=== PATIENT | female | born 2000 | race Caucasian/White ===

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

== ENCOUNTER 2023-02-04 04:45 | Outpatient (CLI) | payer MEDICAID, SELFPAY ==
[2023-02-04 05:13] VITALS: BP 126/73; PULSE 75; TEMP 36.6; O2SAT 99
[2023-02-04 05:38] VITALS: BMI 27.7
[2023-02-04 05:51] LABS: Color, Urine Yellow (Yellow); Glucose, Dipstick Normal (Normal); Ketone-Dipstick Negative (Negative); Leukocyte Esterase-Dipstick Negative /ul (Negative); Nitrite-Dipstick Negative (Negative); Occult Blood-Urine Negative /ul (Negative); Protein-Dipstick Negative (Negative); Urine Bilirubin Dipstick Negative (Negative); Urine Clarity Sl. Cloudy (Clear); Urine Urobilinogen Normal (Normal)
[2023-02-04] MEDS: cycloBENZAPRine HCl 10 MG Tablet PO (07:02)
--- NOTE | 2023-02-05 03:58 | OB.TRI.HP_ITS ---
HPI - General General Date of Admission: 02/04/23 Date of Service: 02/04/23 HPI Narrative NESTOR JOHNSON, is a 22 F who presents at 28w5d with JAX: 04/24/23 for abdominal pain. [facility] Medical History (Updated 02/05/23 @ 04:03 by Terra Herrera CNM) Lab test negative for COVID-19 virus Pilonidal cyst with abscess URI (upper respiratory infection) Home Medications escitalopram oxalate 5 mg tablet (Lexapro) 5 mg PO DAILY 01/07/21 [History Last Taken Unknown] trazodone 50 mg tablet 50 mg PO DAILY 01/07/21 [History Last Taken Unknown] pwyumfts-khw-Ox-FA 1 mg tablet tab PO 02/04/23 [History Last Taken Unknown] ylcidlzm-rcm-Nv-FA 1 mg tablet tab PO 02/04/23 [History Last Taken 02/04/23] Allergy/AdvReac Type Severity Reaction Status Date / Time Seasonal Allergies: Uncoded Allergy Unknown NEEDS Verified 02/04/23 05:08 FOLLOW-UP Social History Smoking Status: Never smoker NST FHR Rate Baby A Baseline: 150 Variability:: Moderate Accelerations:: 15 x 15 Decelerations:: None NST Reactive:: Yes Uterine Activity:: None Assessment & Plan (1) Abdominal pain affecting : (2) 28 weeks gestation of : PLAN: Plan 1) No signs of labor, labor precautions reviewed 2) D/C home
== END 2023-02-04 07:03 | disposition home or self-care (01) ==
LOC: WPOUT 04:51 → WP 04:58
PROVIDERS: PCP Pediatrics; Referring Provider Advanced Practice Midwife; Visit Provider Advanced Practice Midwife
DX: O99.891 Other specified diseases and conditions complicating pregnancy (principal); R10.9 Unspecified abdominal pain; Z3A.28 28 weeks gestation of pregnancy
CPT/HCPCS: 81002; 87086; 87088

== ENCOUNTER 2023-02-06 19:15 | Outpatient (CLI) | payer OTHER, MEDICAID, SELFPAY ==
[2023-02-06] VITALS (7 sets, daily range): BP systolic 130–142; BP diastolic 82–95; PULSE 71–119; TEMP 37.2–37.4; O2SAT 98; BMI 27.1
--- NOTE | 2023-02-06 20:09 | OB.TRI.HP_ITS ---
HPI - General General Date of Service: 02/06/23 Chief Complaint: abdominal pain HPI Narrative NESTOR JOHNSON, is a 22 F who presents with lower abdominal pain. Has been evaluated in the office twice for lower abdominal pain. She states she has had this pain for about 1 week. It is a constant sharp pain across entire lower abdomen and it wraps around into her back and up into her rib cage. The pain does not come and go. Nothing makes the pain better or worse. She has had nausea in the , but some vomiting today. She has had 3 episodes of emesis and states she cannot tolerate PO. Oral temp of 100.4 at home. No sick contacts or new foods. She denies constipation, diarrhea, dysuria, LOF, VB. Good FM. No CADENA or vision changes. [facility] Medical History (Updated 02/06/23 @ 21:[address] Mary Arredondo, DO) Lab test negative for COVID-19 virus Pilonidal cyst with abscess URI (upper respiratory infection) Home Medications escitalopram oxalate 5 mg tablet (Lexapro) 5 mg PO DAILY 01/07/21 [History Last Taken Unknown] trazodone 50 mg tablet 50 mg PO DAILY 01/07/21 [History Last Taken Unknown] lbzbvuof-nnw-Ms-FA 1 mg tablet tab PO 02/04/23 [History Last Taken Unknown] ogmotqyx-gxl-Je-FA 1 mg tablet tab PO 02/04/23 [History Last Taken 02/04/23] Allergy/AdvReac Type Severity Reaction Status Date / Time Seasonal Allergies: Uncoded Allergy Unknown NEEDS Verified 02/06/23 20:27 FOLLOW-UP Social History Smoking Status: Never smoker Physical Exam Const alert and no apparent distress General Appearance: comfortable HEENT normocephalic GI soft to palpation, non-tender and non-distended GI Narrative: Non acute, no rebounding, no guarding, no rigidity NST FHR Rate Baby A Baseline: 150 Variability:: Moderate Accelerations:: None Decelerations:: None NST Reactive:: Appropriate for gestational age Assessment & Plan (1) 29 weeks gestation of : PLAN: Bedside TAUS- vertex presentation, normal MVP, normal appearing placenta. Labs drawn given abd pain, temp 99, nausea and vomiting. Concern for HELLP, acute fatty liver, or TTP based on lab results. Start mag gtt and BMZ x 1 given. Discussed patient and plan of care with MFM at [facility] who accepts transfer. Will send by life flight given acuity. (2) Abdominal pain affecting :
[2023-02-06] MEDS: Lactated Ringers 1,000 ML 999 ML IV (20:15)
[2023-02-06] MEDS: Ondansetron 4 MG/2 ML Vial IV (20:22)
[2023-02-06 20:25] LABS: Absolute Lymphocyte Count 1.42 X10^3/uL (0.83-4.51); Absolute Neutrophil Count 8.6 X10^3/uL (2.0-7.7); Basophil# 0.03 X10^3/uL; Basophil% 0.3 % (0-1); Eosinophils% 1.8 % (0-5); Hematocrit 33.2 % (37-47); Lymphocyte # 1.42 X10^3/ul (0.83-4.51); Lymphocyte % 12.8 % (19-41); Mean Corp Hgb Conc 33.1 g/dL (32-36); Mean Corpuscular Hgb 27.5 pg (27.0-32.0); Mean Platelet Vol. 11.8 fl (6.2-12.0); Monocyte# 0.69 X10^3/uL; Monocyte% 6.2 % (0-10); NRBC Flagged by Analyzer 0 % (0-5); Neutrophil # 8.61 X10^3/uL (2.7-7.7); Neutrophil % 77.9 % (47-70); POSITIVE COUNT YES; RBC Distribution Width SD 40.9 fl (35.1-43.9); White Blood Count 11.1 K/mm3 (4.4-11.0)
[2023-02-06 20:30] LABS: Differential Indicated SCAN CRITERIA MET; Platelet Count 38 K/mm3 (150-450)
[2023-02-06 20:57] LABS: Differential Comment SCANNED
[2023-02-06 21:24] LABS: ALB/GLOB Ratio 0.7 RATIO (0.9-2.4); AST(SGOT) 224 U/L (15-37); Alanine Aminotransfer ALT/SGPT 233 U/L (13-56); Albumin, Serum 2.4 g/dL (3.2-5.0); Alkaline Phosphatase 81 U/L (45-117); Amylase 35 U/L (25-115); Anion Gap 7 (5-15); BUN 10 mg/dL (7-18); BUN/Creat Ratio 17.2 RATIO (10-20); Calcium,Total 8.6 mg/dL (8.5-10.1); Chloride 107 mmol/L (98-107); Creatinine, Serum 0.58 mg/dL (0.55-1.02); EST Glomerular Filtration Rate 138 mL/min (>60); Est Glom Filt Rate - Afr Amer 167 mL/min (>60); Estimated Creatinine Clearance 143.63 ml/min; Globulin 3.6 g/dL (2.2-4.2); Glucose 71 mg/dL (74-106); Lipase 19 U/L (13-75); Potassium 3.4 mmol/L (3.5-5.1); Sodium Level 137 mmol/L (136-145)
[2023-02-06 21:25] LABS: Protein, Urine (Random) 71.3 mg/dL (<11.9); Protein:Creat Ratio 310 mg/g CRE (0-200)
[2023-02-06] MEDS: Magnesium Sulfate 4gm/100mL 4 GM/100 ML IV.SOLN. IV (21:30)
--- NOTE | 2023-02-06 21:30 | NURSING ---
Dr. Arredondo gave verbal order to give 4gm mag bolus over 30 minutes.
[2023-02-06 21:40] LABS: International Normalized Ratio 1.2; Partial Thromboplast Time 40.3 Seconds (24.1-36.2)
[2023-02-06] MEDS: Betamethasone/Betamethasone 30 MG/5 ML Vial 12 MG IM (21:42)
[2023-02-06 21:45] LABS: Fibrinogen 395 mg/dl (203-444)
[2023-02-06] MEDS: Magnesium Sulfate 20 GM/500 ML BAG IV (21:56)
[2023-02-10 09:52] LABS: Pathologist Review Reviewed
[2023-02-10 09:52] LABS: Platelet Count 36 K/mm3 (150-450)
== END 2023-02-06 22:22 | disposition short-term general hospital (02) ==
LOC: WPOUT 19:38 → WP 19:38
PROVIDERS: PCP Pediatrics; Visit Provider Obstetrics & Gynecology
DX: O99.891 Other specified diseases and conditions complicating pregnancy (principal); R10.32 Left lower quadrant pain; R10.31 Right lower quadrant pain; Z3A.29 29 weeks gestation of pregnancy
CPT/HCPCS: 96365; 96375; 96361; 36415; 59025; 59050; 76815; 80053; 82150; 82570; 83690; 84156; 85025; 85049; 85384; 85610; 85730; 86850; 86900; 86901; 96372; 99221; J7120; G0378; J0702; J2405

== ENCOUNTER → 2024-11-15 | Outpatient (CLI) | payer OTHER, MEDICAID, SELFPAY ==
[2024-11-15 12:42] LABS: Absolute Lymphocyte Count 2.24 X10^3/uL (0.83-4.51); Absolute Neutrophil Count 3.8 X10^3/uL (2.0-7.7); Basophil# 0.06 X10^3/uL; Basophil% 0.9 % (0-1); Eosinophil# 0.05 X10^3/uL; Eosinophils% 0.7 % (0-5); Hematocrit 42.8 % (37-47); Hemoglobin 13.7 g/dL (12.0-15.0); Lymphocyte # 2.24 X10^3/ul (0.83-4.51); Lymphocyte % 33.4 % (19-41); Mean Corpuscular Hgb 26.7 pg (27.0-32.0); Mean Corpuscular Volume 83.3 fL (81-99); Mean Platelet Vol. 10.7 fl (6.2-12.0); Monocyte# 0.56 X10^3/uL; Monocyte% 8.4 % (0-10); NRBC Flagged by Analyzer 0 % (0-5); Neutrophil # 3.77 X10^3/uL (2.7-7.7); Neutrophil % 56.3 % (47-70); Platelet Count 263 K/mm3 (150-450); RBC Distribution Width CV 12.5 % (11.6-14.6); RBC Distribution Width SD 37.6 fl (35.1-43.9); Red Blood Count 5.14 M/mm3 (4.2-5.4); White Blood Count 6.7 K/mm3 (4.4-11.0)
[2024-11-15 13:39] LABS: ALB/GLOB Ratio 1.8 RATIO (0.9-2.4); AST(SGOT) 18 U/L (<=31); Alanine Aminotransfer ALT/SGPT 11 U/L (<=34); Albumin, Serum 4.6 g/dL (3.5-5.0); Alkaline Phosphatase 38 U/L (35-104); Anion Gap 11 (5-15); BUN 9 mg/dL (4-19); BUN/Creat Ratio 12.4 RATIO (10-20); Calcium,Total 9.4 mg/dL (7.6-11.0); Carbon Dioxide 25.5 mmol/L (21.0-32.0); Chloride 103 mmol/L (98-108); Creatinine, Serum 0.74 mg/dL (0.70-1.20); EST Glomerular Filtration Rate 116 (>60); Globulin 2.6 g/dL (2.2-4.2); Glucose 82 mg/dL (70-99); Protein, Total 7.2 g/dL (5.9-8.4); Sodium Level 140 mmol/L (133-145); Total Bilirubin 0.77 mg/dL (0.00-1.30)
[2024-11-15 13:42] LABS: Vitamin B12 471 pg/mL (180-914)
== END | disposition home or self-care (01) ==
LOC: BIMLAB 10:21
PROVIDERS: PCP Internal Medicine; Referring Provider Internal Medicine; Visit Provider Internal Medicine
DX: F41.1 Generalized anxiety disorder (principal)
CPT/HCPCS: 36415; 80053; 82306; 82607; 84439; 84443; 85025

== ENCOUNTER → 2025-05-01 | Outpatient (CLI) | payer OTHER, MEDICAID, SELFPAY ==
[2025-05-01 22:41] LABS: Mucous, Urine 0 SEEN /hpf (<or=2+)
--- OUTSIDE RECORDS SUMMARY | 2025-05-01 22:42 | XMS RPT_ITS | CCD ---
Author Organization [facility] [place] [facility] Care Team Providers Care Senior Officer Name Role Phone Unavailable Primary Care Provider Temi Byrne MD Primary Care Provider PROVIDER, UNKNOWN Attending Unavailable PROVIDER, UNKNOWN Admitting Unavailable MILES, ARELI Attending Unavailable DOLIN, JEAN Admitting Unavailable DOLIN, JEAN Consulting Unavailable Unavailable Primary Care Provider Unavailanalilia e Unavailable Primary Care Provider UnavailDr. Betsy Monroy DO Primary Care Provider Dr. Betsy Coleman DO Referring Provider Kevin BRIGGS, Dr. Reid Attending Provider Dr. Franklin Brown MD Primary Care Provider Dr. Franklin Brown MD Referring Provider Kevin Efewongbe Attending Unavailable Betsy Coleman Primary Care Unavailable Betsy Coleman Referring Unavailable Oleghe, Efewongbe Attending Unavailable Hughghe, Efewongbe Referring Unavailable Hughghe, Efewongbe Primary Care Unavailable Oleghe, Efewongbe Primary Care Unavailable Oleghe, Efewongbe Attending Unavailable Oleghe, Efewongbe Referring Unavailable NEYHART GODOY, SANDRA Referring Unavail able NEYHART GODOY, SANDRA Attending Unavail able SELF Referring Unavailable NEYHART GODOY, SANDRA Referring Unavail able NEYHART GODOY, SANDRA Attending Unavail able Allergies Allergy Classification Reported Allergen(s) Allergy Type Date of Onset Reaction(s) Facility (20 sources) Seasonal allergy; Translations: [SEASONAL ALLERGIES] Propensity to adverse reactions 1 Other: See Comments [facility] Work Phone: (1 source) Seasonal Allergies: Uncoded; Translations: [Seasonal Allergies: Uncoded] Propensity to adverse reactions (disorder) [facility] Repository Medications Current Medications Medication Drug Class(es) Dates Sig (Normalized) Sig (Original) busPIRone hydrochloride 10 mg oral tablet (8 sources) Start: 02-14-2025 take 1 tablet by mouth twice daily Buspirone 10 mg tablet Active 10 mg PO TWICE A DAY 180 February 14, 2025 10:39am Start: 11-15-2024 End: 02-14-2025 busPIRone (BUSPAR) 5 mg tabl et 11/15/2024 Active ergocalciferol, vitamin D2, (VITAMIN D2 ORAL) (4 sources) Start: 11-15-2024 ergocalciferol, vitamin D2, (VITAMIN D2 ORAL) 11/15/2024 Active escitalopram 20 mg oral tablet (20 sources) Serotonin Reuptake Inhibitor Start: 08-27-2024 End: 12-23-2024 take 1 tablet by mouth once daily escitalopram oxalate (LEXAPRO) 20 mg tablet Indications: Anxiety neurosis TAKE 1 TABLET BY MOUTH EVERY DAY 90 tablet 09/19/2024 Active Start: 01-07-2021 End: 11-15-2024 take 1 tablet by mouth once daily Escitalopram Oxalate (Lexapro) 5 mg tablet Discontinued 5 mg PO DAILY January 07, 2021 12:00am November 15, 2024 9:32am Start: 03-15-2020 End: 12-06-2022 take 1 tablet by mouth once daily escitalopram oxalate (LEXAPRO) 20 mg tablet Take 1 tablet by mouth once daily. 0 03/15/2020 12/06/2022 Discontinued (Course of therapy completed) Comment on above: Take 1 tablet by oskar th once daily. hydrocortisone 10 mg/ml / neomycin 3.5 mg/ml / polymyxin b [id number] unt/ml otic suspension (1 source) Aminoglycoside Antibacterial, Polymyxin-class Antibacterial, Corticosteroid Start: 11-29-19 End: 12-06-19 neomycin-polymyxin -hydrocortisone (CORTISPORIN) 3.5-10,000-1 mg/mL-unit/mL-% otic suspension Use 3 Drops in the left ear three times daily for 7 days. 10 mL 0 11/28/2021 12/05/2021 Active Comment on above: Use 3 Drops in the l eft ear three times daily for 7 days. Uufecgyt-Mxy-Zx-Fa (4 sources) Start: 02-05-20 take 1 tablet by mouth once Pbdxnesw-Kby-Tf-Fa Active TABLET PO February 04, 2023 12:00am Completed/Discontinued Medications Medication Drug Class(es) Dates Sig (Normalized) Sig (Original) acetaminophen 500 mg oral tablet (2 sources) Start: 02-10-2023 End: 03-20-2023 take 2 tablets by mouth every six hours as needed acetaminophen (TYLENOL EXTRA STRENGTH) 500 mg tablet Take 2 tablets by mouth every 6 hours as needed for pain. 60 tablet 0 02/10/2023 03/20/2023 Discontinued Comment on above: Take 2 tablets by [facility] every 6 hours as needed for pain. aspirin 81 mg delayed release oral tablet (11 sources) Platelet Aggregation Inhibitor, Nonsteroidal Anti-inflammatory Drug Start: 12-06-2022 End: 03-20-2023 take 2 tablets by mouth once daily aspirin, enteric coated (ASPIRIN, ENTERIC COATED) 81 mg EC tablet Take 2 tablets by mouth once daily. 60 tablet 5 12/06/2022 03/20/2023 Discontinued Comment on above: Take 2 tablets by [facility] once daily. Blood Pressure Test Kit-Large (QUICK RESPONSE BP MONITOR) (2 sources) Start: 02-10-2023 End: 03-20-2023 Blood Pressure Test Kit-Large (QUICK RESPONSE BP MONITOR) 1 Each twice daily. 1 Each 0 02/10/2023 03/20/2023 Discontinued Start: 02-10-2023 Blood Pressure Test Kit-Large (QUICK RESPONSE BP MONITOR) 1 Each twice daily. 1 Each 0 02/10/2023 Active Comment on above: 1 Each twice daily. cyclobenzaprine hydrochloride 5 mg oral tablet (2 sources) Muscle Relaxant Start: 02-07-20 End: 02-14-20 take 1 tablet by mouth three times daily cyclobenzaprine (FLEXERIL) 5 mg tablet Take 1 tablet by mouth three times daily. 30 tablet 0 02/06/2023 02/13/2023 Discontinued (Course of therapy completed) Comment on above: Take 1 tablet by oskar th three times daily. drospirenone / Ethinyl Estradiol (10 sources) Progestin, Estrogen Start: 02-16-20 End: 11-02-19 take 1 tablet by mouth once daily Drospirenone-Ethinyl Estradiol 3-0.03 mg per tablet Indications: Surveillance for control, oral contraceptives Take 1 tablet by mouth once daily. 84 tablet 4 02/15/2022 11/01/2022 Discontinued Start: 02-15-2022 take 1 tablet by oskar th once daily Drospirenone-Ethinyl Estradiol 3-0.03 mg per tablet Indications: Surveillance for control, oral contraceptives Take 1 tablet by mouth once daily. 84 tablet 4 02/15/2022 Active Start: 01-28-2021 End: 02-15-2022 take 1 tablet by mouth once daily Drospirenone-Ethinyl Estradiol 3-0.03 mg per tablet Indications: Surveillance for control, oral contraceptives Take 1 tablet by mouth once daily. 84 tablet 4 01/28/2021 02/15/2022 Discontinued Start: 01-28-2021 take 1 tablet by oskar once daily Drospirenone-Ethinyl Estradiol 3-0.03 mg per tablet Indications: Surveillance for control, oral contraceptives Take 1 tablet by mouth once daily. 84 tablet 4 01/28/2021 Active Comment on above: Take 1 tablet by oskar once daily. ferrous sulfate 325 mg oral tablet (2 sources) Start: 02-14-20 End: 03-20-20 take 1 tablet by mouth once daily ferrous sulfate 325 mg (65 mg iron) tablet Take 1 tablet by mouth once daily. 30 tablet 3 02/13/2023 03/20/2023 Discontinued Comment on above: Take 1 tablet by oskar once daily. ibuprofen 600 mg oral tablet (2 sources) Nonsteroidal Anti-inflammatory Drug Start: 02-11-20 End: 03-20-20 take 1 tablet by mouth every six hours as needed ibuprofen (MOTRIN) 600 mg tablet Take 1 tablet by mouth every 6 hours as needed for pain. 60 tablet 0 02/10/2023 03/20/2023 Discontinued Comment on above: Take 1 tablet by oskar every 6 hours as needed for pain. ondansetron 4 mg oral tablet (3 sources) Serotonin-3 Receptor Antagonist Start: 02-07-20 End: 03-20-20 take 1 tablet by mouth every eight hours as needed ondansetron (ZOFRAN) 4 mg tablet Take 1 tablet by mouth every 8 hours as needed for nausea/vomiting. 30 tablet 0 02/06/2023 03/20/2023 Discontinued Comment on above: Take 1 tablet by oskar th every 8 hours as needed for nausea/vomiting. oxyCODONE hydrochloride 5 mg oral tablet (2 sources) Opioid Agonist Start: 02-11-20 End: 03-20-20 take 1 tablet by mouth every six hours as needed for pain oxyCODONE IR (ROXICODONE) 5 mg immediate release tablet Indications: HELLP syndrome, antepartum , state Take 1 tablet by mouth every 6 hours as needed for pain. 5 tablet 0 02/10/2023 03/20/2023 Discontinued Comment on above: Take 1 tablet by oskar th every 6 hours as needed for pain. Jpscxzik-Lqa-Ew-Fa 1 mg tablet (4 sources) Start: 02-05-20 End: 11-16-19 take 1 tablet by mouth once Ifmlpard-Lxu-Yg-Fa 1 mg tablet Discontinued {tbl} PO February 04, 2023 12:00am November 15, 2024 9:32am Start: 02-04-2023 End: 11-15-2024 take 1 tablet by mouth once Rurjhjxx-Ohz-Dq-F a 1 mg tablet Discontinued {tbl} PO February 04, 2023 12:00am November 15, 2024 9:32am prental multivitamin 27 mg iron- 800 mcg tablet (20 sources) End: 11-26-2024 take 1 tablet by mouth once daily prental multivitamin 27 mg iron- 800 mcg tablet Take 1 tablet by mouth once daily. 11/26/2024 Discontinued take 1 tablet by mouth once hoda y prental multivitamin 27 mg iron- 800 mcg tablet Take 1 tablet by mouth once daily. Active take 1 tablet by mouth once hoda y prental multivitamin 27 mg iron- 800 mcg tablet Take 1 tablet by mouth once daily. 0 Active Comment on above: Take 1 tablet by oskar th once daily. sulfamethoxazole 800 mg / trimethoprim 160 mg oral tablet (4 sources) Dihydrofolate Reductase Inhibitor Antibacterial, Sulfonamide Antimicrobial Start: 12-14-2020 End: 01-07-2021 Sulfamethoxazole-Trime thoprim 1 TABLET tablet Discontinued 1 {tbl} PO TWICE A DAY 14 0 December 14, 2020 12:00am January 07, 2021 12:56pm Start: 12-14-2020 End: 01-07-2021 take 1 tablet by mouth twice daily Sulfamethoxazole-Trimethoprim Discontinu ed 1 TABLET PO TWICE A DAY 14 December 14, 2020 12:00am January 07, 2021 12:56pm traZODone hydrochloride 50 mg oral tablet (6 sources) Serotonin Reuptake Inhibitor Start: 01-07-2021 End: 11-15-2024 take 1 tablet by mouth once daily Trazodone 50 mg tablet Discontinued 50 mg PO DAILY January 07, 2021 12:00am November 15, 2024 9:32am Start: 05-15-2020 End: 02-15-2022 take 0.5 tablet by mouth once daily at bedtime traZODone (DESYREL) 50 mg tablet Take 0.5 tablets by mouth daily at bedtime. 0 05/15/2020 02/15/2022 Discontinued Comment on above: Take 0.5 tablets by mouth daily at bedtime. Problems Active Problems Problem Classification Problem Date Documented Date Episodic/Chronic Administrative/social admission (5 sources) First encounter by subject; Translations: [Persons encountering health services in other specified circumstances] Onset: 12-16-2024 11-15-2024 Episodic Conditions associated with dizziness or vertigo (1 source) Dizziness; Translations: [Dizziness and giddiness] 02-13-2023 Episodic Contraceptive and procreative management (3 sources) Oral contraception; Translations: [Encounter for surveillance of contraceptive pills] Episodic Diabetes or abnormal glucose tolerance complicating ; childbirth; or the puerperium (1 source) Impaired glucose tolerance in ; Translations: [Abnormal glucose complicating ] Episodic Fever of unknown origin (4 sources) Fever; Translations: [Fever, unspecified] 01-07-2021 Episodic Hypertension complicating ; childbirth and the puerperium (11 sources) Hypertension complicating , childbirth and the puerperium; Translations: [Unspecified maternal hypertension, complicating childbirth] Onset: 02-10-2023 02-10-2023 Chronic Immunizations and screening for infectious disease (9 sources) Vaccination needed; Translations: [Encounter for immunization] Episodic Infective arthritis and osteomyelitis (except that caused by tuberculosis or sexually transmitted disease) (4 sources) Pelvic abscess; Translations: [Osteomyelitis of vertebra, sacral and sacrococcygeal region] 07-11-2020 Chronic Inflammatory diseases of female pelvic organs (1 source) Acute vaginitis; Translations: [Acute vaginitis] Episodic Nonmalignant breast conditions (11 sources) Lump in upper inner quadrant of left breast; Translations: [Unspecified lump in the left breast, upper inner quadrant] Onset: 09-18-2024 Episodic Other complications of (3 sources) Abdominal pain in ; Translations: [Other specified related conditions, unspecified trimester] 02-05-2023 Episodic Other complications of (2 sources) Other specified related conditions, unspecified trimester; Translations: [Other specified complications of , unspecified as to episode of care or not applicable] 02-04-2023 Episodic Other ear and sense organ disorders (1 source) Acute infective otitis externa; Translations: [Other infective otitis externa, left ear] Episodic Other female genital disorders (1 source) Vaginal odor; Translations: [Other specified noninflammatory disorders of vagina] Episodic Other screening for suspected conditions (not mental disorders or infectious disease) (2 sources) Patient encounter status; Translations: [Encounter for other specified screening] Episodic Other upper respiratory infections (4 sources) Upper respiratory infection; Translations: [Acute upper respiratory infection, unspecified] 01-07-2021 Episodic Residual codes; unclassified (1 source) Gestation period, 7 weeks; Translations: [Less than 8 weeks gestation of ] Episodic Residual codes; unclassified (1 source) Gestation period, 11 weeks; Translations: [11 weeks gestation of ] Episodic Residual codes; unclassified (1 source) Gestation period, 15 weeks; Translations: [15 weeks gestation of ] Episodic Residual codes; unclassified (2 sources) Gestation period, 20 weeks; Translations: [20 weeks gestation of ] Episodic Residual codes; unclassified (5 sources) Gestation period, 28 weeks; Translations: [28 weeks gestation of ] Episodic Residual codes; unclassified (4 sources) Gestation period, 29 weeks; Translations: [29 weeks gestation of ] Episodic Residual codes; unclassified (1 source) 28 weeks gestation of ; Translations: [ state, incidental] 02-04-2023 Episodic Residual codes; unclassified (1 source) 29 weeks gestation of ; Translations: [ state, incidental] 02-06-2023 Episodic Residual codes; unclassified (1 source) Family history of breast cancer; Translations: [Family history of malignant neoplasm of breast] 11-26-2024 Episodic Skin and subcutaneous tissue infections (4 sources) Pilonidal cyst with abscess; Translations: [Pilonidal cyst with abscess] 12-15-2020 Episodic Unclassified (2 sources) Patient encounter status 11-27-2024 Unclassified (1 source) Breast Problem Onset: 11-26-2024 Past or Other Problems Problem Classification Problem Date Documented Da te Episodic/Chronic Anxiety disorders (17 sources) Anxiety disorder; Translations: [Generalized anxiety disorder] Onset: 3 Resolved: 7 08-27-2024 Chronic Diabetes mellitus without complication (17 sources) Increased glucose level; Translations: [Other abnormal glucose] Onset: 3 01-30-2023 Episodic Fluid and electrolyte disorders (11 sources) Hyponatremia; Translations: [Hypo-osmolality and hyponatremia] Onset: 3 02-10-2023 Episodic Fracture of upper limb (9 sources) Closed fracture of base of first metacarpal bone of left hand; Translations: [Other displaced fracture of base of first metacarpal bone, left hand, initial encounter for closed fracture] Onset: 1 Resolved: 3 01-31-2013 Episodic Headache; including migraine (9 sources) Headache; Translations: [Headache] Onset: 3 Resolved: 7 03-17-2017 Episodic Heart valve disorders (13 sources) Heart murmur; Translations: [Cardiac murmur, unspecified] Onset: 3 Resolved: 3 08-02-2021 Episodic Hypertension complicating ; childbirth and the puerperium (12 sources) HELLP syndrome (HELLP), unspecified trimester; Translations: [HELLP syndrome] Onset: 3 02-10-2023 Episodic Intracranial injury (13 sources) Concussion with no loss of consciousness; Translations: [Concussion without loss of consciousness, initial encounter] Onset: 7 Resolved: 3 09-13-2016 Episodic Other aftercare (13 sources) Drug indicated; Translations: [Other keno terminal operator (current) drug therapy] Onset: 7 Resolved: 3 11-30-2016 Episodic Other complications of (20 sources) RhD negative; Translations: [Other specified related conditions, first trimester] Onset: 3 Resolved: 3 10-10-2022 Episodic Other complications of (11 sources) Thrombocytopenic disorder; Translations: [Other diseases of the blood and blood-forming organs and certain disorders involving the immune mechanism complicating , unspecified trimester] Onset: 3 02-09-2023 Episodic Other gastrointestinal disorders (13 sources) Constipation; Translations: [Constipation, unspecified] Onset: 9 Resolved: 3 05-15-2009 Episodic Other non-traumatic joint disorders (9 sources) Pain in unspecified knee; Translations: [Pain in joint, lower leg] Onset: 0 Resolved: 3 02-26-2013 Episodic Other and delivery including normal (20 sources) Normal ; Translations: [Encounter for supervision of normal first , unspecified trimester] Onset: 3 Resolved: 3 Episodic Other skin disorders (13 sources) Nodulocystic acne; Translations: [Acne vulgaris] Onset: 7 Resolved: 3 11-30-2016 Episodic Other skin disorders (9 sources) Abdominal mass; Translations: [Localized swelling, mass and lump, trunk] Onset: 0 Resolved: 3 11-19-2012 Episodic Other skin disorders (9 sources) Acne; Translations: [Acne, unspecified] Onset: 4 Resolved: 7 03-17-2017 Episodic Screening and history of mental health and substance abuse codes (20 sources) H/O: anxiety state; Translations: [Personal history of other mental and behavioral disorders] Onset: 3 Episodic Short gestation; low weight; and growth retardation (11 sources) Premature infant; Translations: [ , unspecified weeks of gestation] Onset: 3 02-07-2023 Episodic Spondylosis; intervertebral disc disorders; other back problems (10 sources) Acute low back pain; Translations: [Acute bilateral low back pain without sciatica] Onset: 4 Resolved: 5 Episodic Results Test Name Value Interpretation Reference Range Facility [facility] US BREAST LTD LTon 03-18 [facility] * * *Final Report* * * DATE OF EXAM: Mar 18 2025 8:47AM [id number] - [facility] US BREAST [facility] LT / PROCEDURE REASON: Solitary cyst of left breast * * * * Physician Interpretation * * * * [place] [address] #[id number] - [facility] BREAST [facility]TD LT HISTORY: 24 year-old patient presents for short term follow-up of left breast findings described on prior ultrasound. Patient states no personal history of breast cancer. COMPARISON STUDIES: The present examination has been compared to prior imaging studies dated 11/18/2020 (ultrasound), 07/26/2022 (ultrasound) and 09/18/2024 (ultrasound). ULTRASOUND TECHNIQUE: Targeted ultrasound of the indicated area was performed. Clayton scale images were saved. ULTRASOUND FINDINGS: There is a stable oval complicated cyst with circumscribed margins measuring 0.5 cm in the left breast at 10 o'clock. Internal echotexture is hypoechoic. Color flow imaging demonstrates vascularity is not present. IMPRESSION: The 0.5 cm stable oval complicated cyst in the left breast at 10 o'clock is probably benign. Follow-up with diagnostic ultrasound is recommended in 6 months. BI-RADS Category 3: Probably Benign Interpreting Radiologist: Patricia Conteh M.D. Electronically signed on: 03/18/2025 Weighmaster: INDIO Transcribe Date/Time: Mar 18 2025 8:36A Dictated by : PATRICIA CONTEH MD This examination was interpreted and the report reviewed and electronically signed by: PATRICIA CONTEH MD on Mar 18 2025 9:03AM EST [id number] Normal [facility] US Breast - left limitedon 0 03-18-2025 IMPRESSION: The 0.5 cm stable oval complicated cyst in the left breast at 10 o'clock is probably benign. Follow-up with diagnostic ultrasound is recommended in 6 months. BI-RADS Category 3: Probably Benign Interpreting Radiologist: Patricia Conteh M.D. Electronically signed on: 03/18/2025 Weighmaster: INDIO Transcribe Date/Time: Mar 18 2025 8:36A Dictated by : PATRICIA CONTEH MD This examination was interpreted and the report reviewed and electronically signed by: PATRICIA CONTEH MD on Mar 18 2025 9:03AM [facility] [place] DIVISION OF RADIOLOGY * * *Final Report* * * DATE OF EXAM: Mar 18 2025 8:47AM Loc[facility] [address] [employer] [facility] / PROCEDURE REASON: Solitary cyst of left breast * * * * Physician Interpretation * * * * [place] [address] #[id number] [employer] [facility] HISTORY: 24 year-old patient presents for short term follow-up of left breast findings described on prior ultrasound. Patient states no personal history of breast cancer. COMPARISON STUDIES: The present examination has been compared to prior imaging studies dated 11/18/2020 (ultrasound), 07/26/2022 (ultrasound) and 09/18/2024 (ultrasound). ULTRASOUND TECHNIQUE: Targeted ultrasound of the indicated area was performed. Clayton scale images were saved. ULTRASOUND FINDINGS: There is a stable oval complicated cyst with circumscribed margins measuring 0.5 cm in the left breast at 10 o'clock. Internal echotexture is hypoechoic. Color flow imaging demonstrates vascularity is not present. DIVISION OF RADIOLOGY Provider, [facility] - 03/18/2025 * * *Final Report* * * DATE OF EXAM: Mar 18 2025 8:47AM Locately 0[address] [employer] BREAST [place] LT / PROCEDURE REASON: Solitary cyst of left breast * * * * Physician Interpretation * * * * [address] [address] [place] [address] #[id number] [employer] BREAST LTD LT HISTORY: 24 year-old patient presents for short term follow-up of left breast findings described on prior ultrasound. Patient states no personal history of breast cancer. COMPARISON STUDIES: The present examination has been compared to prior imaging studies dated 11/18/2020 (ultrasound), 07/26/2022 (ultrasound) and 09/18/2024 (ultrasound). ULTRASOUND TECHNIQUE: Targeted ultrasound of the indicated area was performed. Clayton scale images were saved. ULTRASOUND FINDINGS: There is a stable oval complicated cyst with circumscribed margins measuring 0.5 cm in the left breast at 10 o'clock. Internal echotexture is hypoechoic. Color flow imaging demonstrates vascularity is not present. IMPRESSION IMPRESSION: The 0.5 cm stable oval complicated cyst in the left breast at 10 o'clock is probably benign. Follow-up with diagnostic ultrasound is recommended in 6 months. BI-RADS Category 3: Probably Benign Interpreting Radiologist: Patricia Conteh M.D. Electronically signed on: 03/18/2025 Weighmaster: INDIO Transcrigeorges Date/Time: Mar 18 2025 8:36A Dictated by : PATRICIA CONTEH MD This examination was interpreted and the report reviewed and electronically signed by: PATRICIA CONTEH MD on Mar 18 2025 9:03AM EST [facility] Radiology Study observation (narrative) [facility] US Breast - left limitedOrde red By: Sandra Provider on 03-18-2025 [facility] Internal Medicine Office Vis iton 02-14-2025 Internal Medicine Office Visit [facility] [address] [place] [address] [place] [address] OFFICE VISIT Date of Service: 02/14/25 MR#: [id number] Acct: [id number] Name: NESTOR LOPEZ Rep #: [id number] : 2000 Provider: Dr. Franklin adames MD Age/Sex: 24/F Location: [facility] Status: Signed Intake Vital Signs 11/15/24 09:38 02/14/25 10:22 Height 5 ft 6 in 5 ft 6 in Weight: 152 lb 6 oz 155 lb 6 oz BMI 24.5 25.0 BP 102/68 106/62 Blood Pressure Location Lt brachial Lt brachial Position Sitting Sitting Respiration 16 16 Pulse 96 97 Pulse Source Monitor Monitor Temp 97.9 F 97.6 F L Temp Source Temporal Temporal Pulse Oximetry (%) 98 99 Oxygen Delivery Method room air room air Intake Visit Reasons: 3 M FU Chief Complaint: fu chronic conditions Make Ready Worker Required: No Accompanied by: Self Is patient in pain?: No Allergies Seasonal Allergies: Uncoded Allergy (Unknown, Verified 02/14/25 10:19) NEEDS FOLLOW-UP Medications ???Medication ???Instructions ???Recorded ???Confirmed ???Type escitalopram oxalate 20 mg tablet 20 mg PO QDAY #90 tabs 12/23/24 0 02/14/25 Rx (Lexapro) buspirone 10 mg tablet 10 mg PO BID #180 tabs 02/14/25 Rx Nurse's Note: follow up [facility] Medical History (Updated 02/14/25 @ 12:[address] Franklin Brown MD) Fatigue Vitamin D insufficiency Encounter to establish care Generalized anxiety disorder Breast lump Pneumonia Migraine Allergies section wound complication Lab test negative for COVID-19 virus URI (upper respiratory infection) Pilonidal cyst with abscess Family History Other Arthritis Diabetes Seizures Social History Smoking Status: Never smoker HPI HPI Chief Complaint: fu chronic conditions Details: NESTOR LOPEZ, is a 24 F who presents to the office today for Follows up Started on buspirone at her last visit due to suboptimal control of chronic anxiety. While she has found it helpful she still believes that there is room for improvement. No concerning side effects. Has had increased stressors lately with going back to school, personal surgery history and her daughter also had surgery. History of vitamin D insufficiency/deficie ncy. She states that she is taking her vitamin D supplements consistently. Still reports some fatigue. ROS Const Constitutional: No body ache, excessive sweating, fatigue, fever(s), frequent falls, headache(s), snoring, weakness, weight change, sleep problems or change in appetite Eyes Eyes: No blurry vision, change in vision, vision loss, dry eyes, eye pain or Light sensitivity ENT ENT: No abnormal hearing, ear or mastoid pain, tinnitus, nasal congestion, headache(s), neck pain or sore throat Resp Respiratory: No cough, excessive phlegm production, hemoptysis, shortness of breath, snoring or wheezing Cardio Cardiology: No chest pain at rest, chest pain with exertion, excessive sweating, shortness of breath, dyspnea on exertion, lightheadedness, orthopnea or palpitations Gastro GI: No abdominal pain, change in bowel habits, constipation, cramping, diarrhea, nausea/dyspepsia or vomiting Genitourinary-Female: No burning urination, painful urination, urinary incontinence, urinary frequency, blood in urine, abnormal periods or pelvic pain Musc Musculoskeletal: No abnormal gait, joint pain, back pain, limited range of motion, neck pain, numbness, stiffness, tingling or Arthritis Skin Skin: No dry skin, redness, lesions, itchy eyes, rash or wounds Neuro Neurology: No abnormal gait, abnormal hearing, abnormal speech, dizziness, weakness, frequent falls, headache(s), memory loss, numbness or tingling Psych Psychiatric: No anxiety, No change in appetite, No depression, No memory loss and No Thoughts of harming yourself/Others Endo Endocrine: No cold intolerance, excessive sweating, fatigue, flushing, heat intolerance, increased thirst/drinking, increased hunger or weight change Aller/Imm Allergy/Immunologic: No itchy eyes, seasonal allergy symptoms, hives or wheezing Leon/Lymp Hematologic/Lymphatic : No easy bleeding, easy bruising or enlarged lymph nodes Exam Const General: cooperative, comfortable and no acute distress Orientation: alert, awake and oriented x3 HENMT Head: normal to inspection, normocephalic and atraumatic Ears: hearing grossly normal bilaterally Eyes General: appearance normal, both eyes and all related structures Neck Neck: normal visual inspection, full ROM, no lymphadenopathy and supple Neck mass: No Thyroid: thyroid normal Resp Effort Inspection: normal respiratory effort and able to speak in complete sentences Auscultation: Bilateral: Clear to Auscultation Cardio Rat (more content not included)... [facility] JOHNNESTOR ([id number]) 2 F Date Time Provider Department 11/26/24 3:30 PM SANDRA VIZCAINO OBGYWMatty During your visit today, we recorded the following information about you: Blood pressure Weight 120/70 70.3 kg Sandra Vizcaino MD 11/26/2024 4:04 PM Signed Cleat Blanker offered: Patient declines. Subjective The patient is a 24-year-old female with a history of migraines and a family history of breast cancer presenting for evaluation of breast lumps and contraception counseling. Breast Lumps - Reports discovering multiple lumps in both breasts, with two in the right breast and a couple in the left. - Describes breasts as lumpy and expresses concern due to a family history of breast cancer. - Lumps are not painful unless palpated frequently. - Feels the original lump in the left breast is the same size as before. - Denies any significant skin changes. - Reports white nipple discharge from both breasts, which she attributes to her menstrual cycle. - Stopped in May 2023. - No significant weight changes reported. - Family history of breast cancer includes her grandmother's sisters and her mother's cousin, who recently underwent surgery for breast cancer. - No first-degree relatives (mother, father, siblings) with a history of breast cancer. Menstrual Irregularities - Menstrual cycle is regular, with a length of 24-28 days. - Current period started yesterday, with a cycle length of 24 days this month. - Describes menstrual flow as medium for the first two days, then very light. - Denies experiencing cramps. Contraception Counseling and Management - Previous use of Nexplanon in high school resulted in continuous bleeding for a year, leading to discontinuation. - Long-term use of oral contraceptive pills reportedly triggered migraines. - Currently considering a copper IUD due to its non-hormonal nature but expresses concerns about potential side effects. - Partner and she have stopped using condoms, prompting the need for reliable contraception. - Expresses concerns about hormonal contraception due to a history of migraines and current acne issues. - Uncertain if migraines were present during Nexplanon use, but notes a cessation of migraines after discontinuing oral contraceptive pills. - Previously prescribed spironolactone by a shot dropper for cystic acne but did not start the medication due to concerns about breast cysts and potential breast cancer risk. Constitutional: (-) weight changes Genitourinary: (+) bilateral breast lumps, (-) breast pain (except with repeated palpation), (+) bilateral white nipple discharge, (-) dysmenorrhea, (+) regular menses Skin: (+) acne Objective Blood pressure 120/70, weight 70.3 kg (155 lb), last menstrual period 08/17/2024, not currently . General: No acute distress. Breast: symmetrical, tiny brianna size cyst at 10:00 left breast- stable- no other masses noted. no nipple discharge, no skin changes, no lymphadenopathy. 1. Cyst of left breast (N60.02) -no significant changes in size of the original cyst in the left breast. - No nipple discharge or skin changes observed. - Physical examination reveals normal cystic feeling breast tissue, no concerning findings. - Scheduled follow-up ultrasound in March to monitor cysts. - Advised patient that if any changes are noted on the ultrasound, a biopsy may be recommended. 2. Encounter for initial prescription of intrauterine contraceptive device (IUD) (Z30.014) - Discussed contraceptive options, including copper IUD (Paragard) and hormonal IUD (Mirena). - Educated on the benefits and potential side effects of each option: - Copper IUD: Non-hormonal, effective for 10 years, immediate efficacy, <1% rate, potential for heavier and more painful periods. - Mirena IUD: Contains progesterone, effective for 5 years, may reduce or eliminate periods, potential for irregular bleeding in the first 3-6 months, possible hormonal acne. - Patient expressed concern about hormonal side effects due to history of migraines and acne. - Provided pamphlets for further information. - Scheduled IUD insertion appointment on December 11 at 10:30 AM. - Advised to use condoms until IUD placement to prevent early disruption. - Instructed to take ibuprofen on the day of insertion to manage cramping. 3. Family history of malignant neoplasm of breast (Z80.3) - Family history includes breast cancer in grandmother's sisters and mother's cousin. - No first-degree relatives with breast cancer. - Patient is aware of family history and its implications. Attestation Recording using legalPAD software for draft documentation of the visit was discussed with the patient/authorized new accounts representative; all questions welcomed and ans (more content not included)... Normal [facility] CNPNon 11-26-2024 CNPN Telephone (OBGYWM) NESTOR LOPEZ ([id number]) 2 F Date Time Provider Department 11/26/24 SANDRA VIZCAINO OBGYWM During your visit today, we recorded the following information about you: Sabrina Ayala RN 11/26/2024 8:03 AM Signed Left message for patient to call office. Please ask patient if she is okay with seeing either AG @ 11:00 am or DM could see her at 3:30 pm. CLINT Miller Jennifer, RN 11/26/2024 8:29 AM Signed Patient called back. Would like the 3:30 with DM. Sabrina Ayala RN Allergies As of Date: 11/26/2024 Noted Allergy Reaction SEASONAL ALLERGIES 11/10/2020 14 - Other: See Comments Comments: Runny nose, sneezing, itching in eyes. Date Reviewed: 08/27/2024 Reviewed by: Matilde Cortez MA - Fully Assessed Reason for Visit: Appointment [186] Prescriptions as of 11/26/2024 - escitalopram oxalate (LEXAPRO) 20 mg tablet TAKE 1 TABLET BY MOUTH EVERY DAY - prental multivitamin 27 mg iron- 800 mcg tablet Take 1 tablet by mouth once daily. Problem List As Of Date 11/26/2024 Noted Resolved Constipation [K59.00] 05/15/2009 09/08/2022 Abdominal wall mass [R22.2] 12/21/2009 11/19/2012 Knee pain [M25.569] 05/20/2010 02/26/2013 Fracture of metacarpal base, first, left hand, *08/31/2010 01/31/2013 Anxiety [F41.9] 05/11/2013 03/17/2017 Heart murmur [R01.1] 05/11/2013 09/08/2022 Headache(784.0) [R51] 05/11/2013 03/17/2017 Back pain [M54.9] 05/01/2014 12/19/2014 Acne [L70.9] 05/01/2014 03/17/2017 Concussion without loss of consciousness [S06.0*09/13/2016 09/08/2022 Nodulocystic acne [L70.0] 11/30/2016 09/08/2022 On isotretinoin therapy [Z79.2] 11/30/2016 09/08/2022 History of anxiety [Z86.59] 09/08/2022 Patient request for diagnostic testing [Z01.89] 09/08/2022 02/06/2023 Encounter for supervision of normal first pregn*09/08/2022 02/06/2023 Rh negative state in antepartum period, first t*10/10/2022 02/06/2023 Elevated glucose [R73.09] 01/30/2023 Rh negative state in antepartum period [O26.899*02/01/2023 Thrombocytopenia affecting (HCC) [O99*02/06/2023 HELLP syndrome, [O14.20] 02/07/2023 Prematurity [P07.30] 02/07/2023 Hyponatremia [E87.1] 02/07/2023 state [Z39.2] 02/08/2023 Hypertension complicating , delivered,*02/10/2023 Encounter Status:Closed by SABRINA AYALA on 11/26/24 Normal [facility] Absolute lymphocyte countOrd ered By: Franklin Brown on 11-15-2024 Lymphocytes Auto (Unsp spec) [#/Vol] 2.24 10*3/uL 0.83-4.51 [facility] Absolute neutrophil countOrd ered By: Franklin Brown on 11-15-2024 Neutrophils (Bld) [#/Vol] 3.8 10*3/uL 2.0-7.7 [facility] Anion gap in Serum or Plasma Ordered By: Carltongeorges Kevin on 11-15-2024 Anion gap [Moles/Vol] 11 mmol/L 5- [facility] Automated lymphocyte count a s percentage of total leukocytesOrdered By: Ernestoryanamygeorges Reesemarlene on 11-15-2024 Lymphocytes/100 WBC Auto (Unsp spec) 33.4 % - [facility] BUN/creatinine ratioOrdered By: ryangaithersburggeorges Kevin on 11-15-2024 Urea nitrogen/Creatinine [Mass ratio] 12.4 mg/mg 10- [facility] Basophil percentageOrdered B y: Carltongeorges Kevin on 11-15-2024 Basophils/100 WBC (Bld) 0.9 % 0-1 [facility] Bilirubin, totalOrdered By: Ernestoryanamygeorges Kevin on 11-15-2024 Bilirubin [Mass/Vol] 0.77 mg/dL 0.00-1.30 [facility] CBC W/Diff, Automatedon 11-05 Absolute Lymph 2.24 X10 3/uL Normal 0.83-4.51 [facility] Comment on above: Performed By: #### L 506.0400, L506.1001, L503.0106, L500.4050, L501.9520, L100.0100 #### [facility] [address] [place], [address] Absolute Neut 3.8 X10 3/uL Normal 2.0-7.7 [facility] Comment on above: Performed By: #### L 506.0400, L506.1001, L503.0106, L500.4050, L501.9520, L100.0100 #### [facility] [address] [place], [address] Basophils/100 WBC (Bld) 0.9 % Normal 0-1 [facility] Comment on above: Performed By: #### L 506.0400, L506.1001, L503.0106, L500.4050, L501.9520, L100.0100 #### [facility] [address] [place], [address] Eosinophils/100 WBC (Bld) 0.7 % Normal 0-5 [facility] Comment on above: Performed By: #### L 506.0400, L506.1001, L503.0106, L500.4050, L501.9520, L100.0100 #### [facility] [address] [place], [address] Erythrocyte distribution width (RBC) [Ratio] 12.5 % Normal 11.6-14.6 [facility] Comment on above: Performed By: #### L 506.0400, L506.1001, L503.0106, L500.4050, L501.9520, L100.0100 #### [facility] [address] [place], [address] Hematocrit (Bld) [Volume fraction] 42.8 % Normal 37-47 [facility] Comment on above: Performed By: #### L 506.0400, L506.1001, L503.0106, L500.4050, L501.9520, L100.0100 #### [facility] [address] [place], [address] Hemoglobin (Bld) [Mass/Vol] 13.7 g/dL Normal 12.0-15.0 [facility] Comment on above: Performed By: #### L 506.0400, L506.1001, L503.0106, L500.4050, L501.9520, L100.0100 #### [facility] [address] [place], [address] IG% 0.300 Normal 0.0-0.9 [facility] Comment on above: Result Comment: IG% - Immature Granulocytes (promyelocytes, myelocytes and metamyelocytes) > 1% indicates that a LEFT SHIFT is Present. Performed By: #### L 506.0400, L506.1001, L503.0106, L500.4050, L501.9520, L100.0100 #### [facility] [address] [place], [address] Lymphocytes/100 WBC (Bld) 33.4 % Normal 19-41 [facility] Comment on above: Performed By: #### L 506.0400, L506.1001, L503.0106, L500.4050, L501.9520, L100.0100 #### [facility] [address] [place], [address] MCH (RBC) [Entitic mass] 26.7 pg Low 27.0-32.0 [facility] Comment on above: Performed By: #### L 506.0400, L506.1001, L503.0106, L500.4050, L501.9520, L100.0100 #### [facility] [address] [place], [address] MCHC (RBC) [Mass/Vol] 32.0 g/dL Normal 32-36 [facility] Comment on above: Performed By: #### L 506.0400, L506.1001, L503.0106, L500.4050, L501.9520, L100.0100 #### [facility] [address] [place], [address] MCV (RBC) [Entitic vol] 83.3 fL Normal 81-99 [facility] Comment on above: Performed By: #### L 506.0400, L506.1001, L503.0106, L500.4050, L501.9520, L100.0100 #### [facility] [address] [place], [address] Monocytes/100 WBC (Bld) 8.4 % Normal 0-10 [facility] Comment on above: Performed By: #### L 506.0400, L506.1001, L503.0106, L500.4050, L501.9520, L100.0100 #### [facility] [address] [place], [address] Neutrophils/100 WBC (Bld) 56.3 % Normal 47-70 [facility] Comment on above: Performed By: #### L 506.0400, L506.1001, L503.0106, L500.4050, L501.9520, L100.0100 #### [facility] [address] [place], [address] Nucleated RBC (Bld) [#/Vol] 0 10*3/uL Normal 0-5 [facility] Comment on above: Performed By: #### L 506.0400, L506.1001, L503.0106, L500.4050, L501.9520, L100.0100 #### [facility] [address] [place], [address] Platelet mean volume (Bld) [Entitic vol] 10.7 fL Normal 6.2-12.0 [facility] Comment on above: Performed By: #### L 506.0400, L506.1001, L503.0106, L500.4050, L501.9520, L100.0100 #### [facility] [address] [place], [address] Platelets (Bld) [#/Vol] 263 10*3/uL Normal 150-450 [facility] Comment on above: Performed By: #### L 506.0400, L506.1001, L503.0106, L500.4050, L501.9520, L100.0100 #### [facility] [address] [place], [address] RBC (Bld) [#/Vol] 5.14 10*6/uL Normal 4.2-5.4 [facility] Comment on above: Performed By: #### L 506.0400, L506.1001, L503.0106, L500.4050, L501.9520, L100.0100 #### [facility] [address] [place], [address] RDW SD 37.6 fl Normal 35.1-43.9 [facility] Comment on above: Performed By: #### L 506.0400, L506.1001, L503.0106, L500.4050, L501.9520, L100.0100 #### [facility] [address] [place], [address] WBC (Bld) [#/Vol] 6.7 10*3/uL Normal 4.4-11.[address] [facility] Comment on above: Performed By: #### L 506.0400, L506.1001, L503.0106, L500.4050, L501.9520, L100.0100 #### [facility] [address] [place], [address] Carbon dioxide, total [Moles /volume] in Central venous bloodOrdered By: Franklin Brown on 11-15-2024 CO2 [Moles/Vol] 25.5 mmol/L 21.0-32.0 [facility] Chloride assayOrdered By: Ernesto Brown on 11-15-2024 Chloride [Moles/Vol] 103 mmol/L 98-108 [facility] Comprehensive Metabolic Prof ilon 11-15-2024 Albumin [Mass/Vol] 4.6 g/dL Normal 3.5-5.[address] [facility] Comment on above: Performed By: #### L 506.0400, L506.1001, L503.0106, L500.4050, L501.9520, L100.0100 #### [facility] [address] [place], [address] Albumin/Globulin [Mass ratio] 1.8 {ratio} Normal 0.9-2.4 [facility] Comment on above: Performed By: #### L 506.0400, L506.1001, L503.0106, L500.4050, L501.9520, L100.0100 #### [facility] [address] [place], [address] ALK PHOS 38 U/L Normal 35-104 [facility] Comment on above: Performed By: #### L 506.0400, L506.1001, L503.0106, L500.4050, L501.9520, L100.0100 #### [facility] [address] [place], [address] ALT [Catalytic activity/Vol] 11 U/L Normal <=34 [facility] Comment on above: Performed By: #### L 506.0400, L506.1001, L503.0106, L500.4050, L501.9520, L100.0100 #### [facility] [address] [place], [address] AST [Catalytic activity/Vol] 18 U/L Normal <=31 [facility] Comment on above: Performed By: #### L 506.0400, L506.1001, L503.0106, L500.4050, L501.9520, L100.0100 #### [facility] [address] [place], [address] Bilirubin [Mass/Vol] 0.77 mg/dL Normal 0.00-1.30 [facility] Comment on above: Performed By: #### L 506.0400, L506.1001, L503.0106, L500.4050, L501.9520, L100.0100 #### [facility] [address] [place], [address] BUN/CRE 12.4 RATIO Normal 10-20 [facility] Comment on above: Performed By: #### L 506.0400, L506.1001, L503.0106, L500.4050, L501.9520, L100.0100 #### [facility] [address] [place], [address] Calcium [Mass/Vol] 9.4 mg/dL Normal 7.6-11.[address] [facility] Comment on above: Performed By: #### L 506.0400, L506.1001, L503.0106, L500.4050, L501.9520, L100.0100 #### [facility] [address] [place], [address] Chloride [Moles/Vol] 103 mmol/L Normal 98-108 [facility] Comment on above: Performed By: #### L 506.0400, L506.1001, L503.0106, L500.4050, L501.9520, L100.0100 #### [facility] [address] [place], [address] CO2 [Moles/Vol] 25.5 mmol/L Normal 21.0-32.0 [facility] Comment on above: Performed By: #### L 506.0400, L506.1001, L503.0106, L500.4050, L501.9520, L100.0100 #### [facility] [address] [place], [address] Creatinine [Mass/Vol] 0.74 mg/dL Normal 0.70-1.20 [facility] Comment on above: Performed By: #### L 506.0400, L506.1001, L503.0106, L500.4050, L501.9520, L100.0100 #### [facility] [address] [place], [address] GAP 11 Normal 5-15 [facility] Comment on above: Performed By: #### L 506.0400, L506.1001, L503.0106, L500.4050, L501.9520, L100.0100 #### [facility] [address] [place], [address] GFR/1.73 sq M.predicted among non-blacks MDRD (S/P/Bld) [Vol rate/Area] 116 mL/min/{1.73_m2} Normal >60 [facility] Comment on above: Result Comment: mL/m in/1.73m2 CKD-EPI Creatinine Equation (2020) Performed By: #### L 506.0400, L506.1001, L503.0106, L500.4050, L501.9520, L100.0100 #### [facility] [address] [place], [address] Globulin (S) [Mass/Vol] 2.6 g/dL Normal 2.2-4.2 [facility] Comment on above: Performed By: #### L 506.0400, L506.1001, L503.0106, L500.4050, L501.9520, L100.0100 #### [facility] [address] [place], [address] Glucose [Mass/Vol] 82 mg/dL Normal 70-[address] [facility] Comment on above: Performed By: #### L 506.0400, L506.1001, L503.0106, L500.4050, L501.9520, L100.0100 #### [facility] [address] [place], [address] Potassium [Moles/Vol] 4.0 mmol/L Normal 3.3-5.1 [facility] Comment on above: Performed By: #### L 506.0400, L506.1001, L503.0106, L500.4050, L501.9520, L100.0100 #### [facility] [address] [place], [address] Sodium [Moles/Vol] 140 mmol/L Normal 133-[address] [facility] Comment on above: Performed By: #### L 506.0400, L506.1001, L503.0106, L500.4050, L501.9520, L100.0100 #### [facility] [address] [place], [address] T PROT 7.2 g/dL Normal 5.9-8.4 [facility] Comment on above: Performed By: #### L 506.0400, L506.1001, L503.0106, L500.4050, L501.9520, L100.0100 #### [facility] [address] [place], [address] Urea nitrogen [Mass/Vol] 9 mg/dL Normal 4-19 [facility] Comment on above: Performed By: #### L 506.0400, L506.1001, L503.0106, L500.4050, L501.9520, L100.0100 #### [facility] [address] [place], [address] Eosinophil percentageOrdered By: Ernestoewongbe Shadiae on 11-15-2024 Eosinophils/100 WBC (Bld) 0.7 % 0-5 [facility] Erythrocyte distribution wid th (RBC) [Ratio]Ordered By: Efewongbe Oleghe on 11-15-2024 Erythrocyte distribution width (RBC) [Entitic vol] 37.6 fL 35.1-43.9 [facility] Erythrocyte distribution wid th ratioOrdered By: Efewongbe Oleghe on 11-15-2024 Erythrocyte distribution width (RBC) [Ratio] 12.5 % 11.6-14.6 [facility] Erythrocyte distribution wid th standard deviationOrdered By: Efewongbe Oleghe on 11-15-2024 Erythrocyte distribution width (RBC) [Ratio] 37.6 fl 35.1-43.9 [facility] GFR/1.73 sq M.predicted ismael g non-blacks MDRD (S/P/Bld) [Vol rate/Area]Ordered By: Franklin Brown on 11-15-2024 Estimated GFR (MDRD) Non-Af Amer 116 >60 [facility] Comment on above: mL/min/1.73m2 CKD-EP I Creatinine Equation (2020) Glomerular filtration rate ( GFR) estimation/1.73 sq m using serum, plasma, or whole bOrdered By: Franklin Brown on 11-15-2024 GFR/1.73 sq M.predicted among non-blacks MDRD (S/P/Bld) [Vol rate/Area] 116 mL/min/{1.73_m2} >60 [facility] Comment on above: mL/min/1.73m2 CKD-EP I Creatinine Equation (2020) Hematocrit Auto (Bld) [Volum e fraction]Ordered By: Franklin Brown on 11-15-2024 Hematocrit (Bld) [Volume fraction] 42.8 % 37-47 [facility] Hemoglobin measurementOrdere d By: Franklin Brown on 11-15-2024 Hemoglobin (Bld) [Mass/Vol] 13.7 g/dL 12.0-15.0 [facility] Immature granulocytes/100 WB C Auto (Bld)Ordered By: Franklin Brown on 11-15-2024 Immature granulocytes/100 WBC (Bld) 0.300 % 0.0-0.9 [facility] Comment on above: IG% - Immature Granu locytes (promyelocytes, myelocytes and metamyelocytes) > 1% indicates that a LEFT SHIFT is Present. Internal Medicine Office Vis soo 11-15-2024 Internal Medicine Office Visit [facility] [address] [place], [place] [address] OFFICE VISIT Date of Service: 11/15/24 MR#: [id number] Acct: [id number] Name: NESTOR LOPEZ Rep #: [id number] : 2000 Provider: Dr. 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 Chief Complaint: establishing Make Ready Worker Required: No Accompanied by: Self Is patient in pain?: No Allergies Seasonal Allergies: Uncoded Allergy (Unknown, Verified 11/15/24 09:32) NEEDS FOLLOW-UP Medications ???Medication ???Instructions ???Recorded ???Confirmed ???Type buspirone 5 mg tablet 5 mg PO BID #60 tabs 11/15/2411/05 Rx escitalopram oxalate 20 mg tablet 20 mg PO QDAY 11/15/24 11/15/24 H istory (Lexapro) Have you fallen in the past year?: No Nurse's Note: discuss antidepressant medications [facility] Medical History (Updated 11/15/24 @ 13:[address] Franklin Brown MD) Encounter to establish care Generalized anxiety disorder Breast lump Pneumonia Migraine Allergies section wound complication Lab test negative for COVID-19 virus URI (upper respiratory infection) Pilonidal cyst with abscess Family History (Updated 11/15/24 @ 09:35 by Guerda Wilks) Other Arthritis Diabetes Seizures Social History Smoking Status: Never smoker Questionnaire MARTINA-7 [facility] [place] MARTINA-7 Feeling nervous, anxious, or on edge: 3 = Nearly every day Not being able to stop or control worryin = More than half the days Worrying too much about different things: 2 = More than half the days Trouble relaxin = Several days Being so restless that it is hard to sit still: 0 = Not at all Becoming easily annoyed or irritable: 1 = Several days Feeling afraid as if something awful might happen: 2 = More than half the days Total MARTINA-7 score (0-4 normal; 5-9 mild; 10-14 moderate; 15-21 severe): 11 Source: Developed by Drs. Devin Rosario, Vernell Del Valle, Quincy Carrera and colleagues, with an educational mirela from [employer] [facility] HPI Chief Complaint: establishing Details: NESTOR LOPEZ, is a 24 F who presents to the office today to establish care. Also has some concerns. She reports a chronic history of anxiety. Has been on Lexapro. Had been on it for a while, discontinued a few months before she got and recently restarted due to worsening symptoms. She worries about a lot of things including her health. Currently on 20 mg of Lexapro and she scored 11 on the MARTINA-7 significant for moderate anxiety. No significant depression. No tobacco or alcohol abuse. ROS Const Constitutional: No body ache, excessive sweating, fatigue, fever(s), frequent falls, headache(s), snoring, weakness, weight change, sleep problems or change in appetite Eyes Eyes: No blurry vision, change in vision, bulging eyes, floaters, visual disturbances, eye pain or Light sensitivity ENT ENT: No abnormal hearing, ear or mastoid pain, tinnitus, balance problems, nosebleed/epistaxis, nasal congestion, headache(s), neck pain or sore throat Resp Respiratory: No cough, excessive phlegm production, pain on inspiration, shortness of breath, snoring or wheezing Cardio Cardiology: No chest pain at rest, chest pain with exertion, excessive sweating, shortness of breath, dyspnea on exertion, lightheadedness, orthopnea or palpitations Gastro GI: No abdominal pain, change in bowel habits, constipation, cramping, diarrhea, nausea/dyspepsia or vomiting Genitourinary-Female: No burning urination, painful urination, urinary incontinence, urinary frequency, blood in urine, abnormal periods or pelvic pain Musc Musculoskeletal: No abnormal gait, joint pain, back pain, limited range of motion, neck pain, numbness, stiffness, tingling or Arthritis Skin Skin: No dry skin, redness, excessive hair growth, yellowing of the eye, lesions, itchy eyes, rash or wounds Neuro Neurology: No abnormal gait, abnormal hearing, abnormal speech, confusion, unsteady gait/balance, dizziness, weakness, frequent falls, headache(s), memory loss, numbness, tingling or visual disturbances Psych Psychiatric: Positive for anxiety, No change in appetite, No confusion, No depression, No memory loss and No Thoughts of harming yourself/Others Endo Endocrine: No cold intolerance, excessive sweating, fatigue, flushing, heat intolerance, increased thirst/drinking, increased hun (more content not included)... Normal [facility] Laboratory - Chemistry and C hemistry - challengeOrdered By: Franklin Brown on 11-15-2024 AST [Catalytic activity/Vol] 18 U/L <32 [facility] Lymphocytes Auto (Unsp spec) [#/Vol]Ordered By: Franklin Brown on 11-15-2024 Lymphocytes (Bld) [#/Vol] 2.24 10*3/uL 0.83-4.51 [facility] Lymphocytes/100 WBC Auto (Un sp spec)Ordered By: Franklin Brown on 11-15-2024 Lymphocytes/100 WBC (Bld) 33.4 % 19-41 [facility] MCV (mean corpuscular volume ) determinationOrdered By: Franklin Brown on 11-15-2024 MCV (RBC) [Entitic vol] 83.3 fL 81-99 [facility] Mean corpuscular hemoglobin (MCH) determinationOrdered By: Franklin Brown on 11-15-2024 MCH (RBC) [Entitic mass] 26.7 pg Low 27.0-32.0 [facility] Mean corpuscular hemoglobin concentration (MCHC) determinationOrdered By: Franklin Brown on 11-15-2024 MCHC (RBC) [Mass/Vol] 32.0 g/dL 32-36 [facility] Mean platelet volume determi nationOrdered By: Franklin Brown on 11-15-2024 Platelet mean volume (Bld) [Entitic vol] 10.7 fL 6.2-12.0 [facility] Monocyte percentageOrdered B y: Franklin Brown on 11-15-2024 Monocytes/100 WBC (Bld) 8.4 % 0-10 [facility] Neutrophil percentageOrdered By: Franklin Brown on 11-15-2024 Neutrophils/100 WBC (Bld) 56.3 % 47-70 [facility] Nucleated red blood cell per centageOrdered By: Franklin Brown on 11-15-2024 Nucleated RBC/100 WBC (Bld) [Ratio] 0 % 0-5 [facility] Platelet countOrdered By: Ernesto Brown on 11-15-2024 Platelets (Bld) [#/Vol] 263 10*3/uL 150-450 [facility] Potassium (Unsp spec) [Mass/ Vol]Ordered By: Franklin Brown on 11-15-2024 Potassium [Moles/Vol] 4.0 mmol/L 3.3-5.1 [facility] Potassium measurement (mass/ volume)Ordered By: Franklin Brown on 11-15-2024 Potassium (Unsp spec) [Mass/Vol] 4.0 mmol/L 3.3-5.1 [facility] RBC Auto (Bld) [#/Vol]Ordere d By: Franklin Brown on 11-15-2024 RBC (Bld) [#/Vol] 5.14 10*6/uL 4.2-5.4 [facility] Serum creatinine measurement (mass/volume)Ordered By: Franklin Brown on 11-15-2024 Creatinine [Mass/Vol] 0.74 mg/dL 0.70-1.20 [facility] Serum globulin measurementOr dered By: Franklin Brown on 11-15-2024 Globulin (S) [Mass/Vol] 2.6 g/dL 2.2-4.2 [facility] Serum glucose measurement (m ass/volume)Ordered By: Franklin Brown on 11-15-2024 Glucose [Mass/Vol] 82 mg/dL 70-[address] [facility] Serum or plasma alanine cazares otransferase (ALT) measurementOrdered By: Franklin Brown on 11-15-2024 ALT [Catalytic activity/Vol] 11 U/L <35 [facility] Serum or plasma albumin emilie urement (mass/volume)Ordered By: Franklin Brown on 11-15-2024 Albumin [Mass/Vol] 4.6 g/dL 3.5-5.[address] [facility] Serum or plasma albumin/glob ulin mass ratioOrdered By: Franklin Brown on 11-15-2024 Albumin/Globulin [Mass ratio] 1.8 {ratio} 0.9-2.4 [facility] Serum or plasma alkaline javier sphatase measurementOrdered By: Franklin Reesemaximoivana on 11-15-2024 ALP [Catalytic activity/Vol] 38 U/L 35-104 [facility] Serum or plasma calcium emilie urement (mass/volume)Ordered By: Franklin Reesemaximoivana on 11-15-2024 Calcium [Mass/Vol] 9.4 mg/dL 7.6-11.[address] [facility] Serum or plasma urea nitroge n measurement (mass/volume)Ordered By: Franklin Brown on 11-15-2024 Urea nitrogen [Mass/Vol] 9 mg/dL 4-19 [facility] Sodium levelOrdered By: Akash bolanosaicha Kevin on 11-15-2024 Sodium [Moles/Vol] 140 mmol/L 133-[address] [facility] T4 Free Directon 11-15-2024 T4 FREE DIRECT 1.20 ng/dL Normal 0.76-1.46 [facility] Comment on above: Performed By: #### L 506.0400, L506.1001, L503.0106, L500.4050, L501.9520, L100.0100 #### [facility] Laboratory [address] [place], [address] T4 freeOrdered By: Franklin Brown on 11-15-2024 Free T4 [Mass/Vol] 1.20 ng/dL 0.76-1.[address] [facility] TSH DL <= 0.005 mIU/L QnOrde red By: Franklin Brown on 11-15-2024 Thyroid Stimulating Hormone (TSH) 2.980 uIU/mL 0.300-4.200 [facility] TSH Qn 2.980 uIU/mL 0.300-4.200 [facility] Thyroid Stim Hormone (TSH)on 11-15-2024 TSH 2.980 uIU/mL Normal 0.300-4.200 [facility] Comment on above: Performed By: #### L 506.0400, L506.1001, L503.0106, L500.4050, L501.9520, L100.0100 #### [facility] [address] [place], [address] Total proteinOrdered By: Willie Brown on 11-15-2024 Protein [Mass/Vol] 7.2 g/dL 5.9-8.[address] [facility] Vitamin B12on 11-15-2024 Cobalamin (Vitamin B12) [Mass/Vol] 471 pg/mL Normal 180-914 [facility] Comment on above: Performed By: #### L 506.0400, L506.1001, L503.0106, L500.4050, L501.9520, L100.0100 #### [facility] [address] [place], [address] Vitamin B12 ser/plasOrdered By: Franklin Brown on 11-15-2024 Cobalamin (Vitamin B12) [Mass/Vol] 471 pg/mL 180-914 [facility] Vitamin D, 25-hydroxyOrdered By: Franklin Brown on 11-15-2024 Vitamin D 25-Hydroxy 25.0 ng/mL Low 30-100 [facility] Comment on above: Vitamin D StatusDefi ciency: <20 ng/mL (50nmol/L)Insufficiency: 20-30 ng/mL (50-75 nmol/L)Sufficiency: 30-100 ng/mL (75-250 nmol/L)Toxicity: >100 ng/mL (>250 nmol/L) Vitamin D,25 Hydroxyon 11-15 Vitamin D 25-OH 25.0 ng/mL Low 30-100 [facility] Comment on above: Result Comment: Susan min D Status Deficiency: <20 ng/mL (50nmol/L) Insufficiency: 20-30 ng/mL (50-75 nmol/L) Sufficiency: 30-100 ng/mL (75-250 nmol/L) Toxicity: >100 ng/mL (>250 nmol/L) Performed By: #### L 506.0400, L506.1001, L503.0106, L500.4050, L501.9520, L100.0100 #### [facility] [place] [place], [address] White blood cell (WBC) count Ordered By: Franklin Brown on 11-15-2024 WBC (Bld) [#/Vol] 6.7 10*3/uL 4.4-11.[address] [facility] CNPNon 10-04-2024 CNPN Telephone (OBGYWM) NESTOR LOPEZ ([id number]) 2 F Date Time Provider Department 10/04/24 SANDRA VIZCAINO OBGYWM During your visit today, we recorded the following information about you: Sabrina Ayala RN 10/04/2024 8:44 AM Signed Patient asking if DM would increase her dosage of Lexapro. Currently taking 20 MG. States she felt like it helped in the beginning, but has been experiencing more anxiety. Please advise. CLINT Miller Deidre, MD 10/04/2024 12:43 PM Signed Is she still seeing counselor? I feel that if she needs to go past 20mg she probably needs to see her PCP or psychiatry as this may not be the best medication for her. Rachel Heredia RN 10/04/2024 1:30 PM Signed Patient not currently seeing a counselor but is currently in process of seeing someone new. Patient states she has an appointment in November to establish with a PCP and has enough medication to get her through until her appointment. Patient will reach out to office if needs any assistance with appointments. Rachel Heredia RN Allergies As of Date: 10/04/2024 Noted Allergy Reaction SEASONAL ALLERGIES 11/10/2020 14 - Other: See Comments Comments: Runny nose, sneezing, itching in eyes. Date Reviewed: 08/27/2024 Reviewed by: Matilde Cortez MA - Fully Assessed Reason for Visit: Patient Question [7927] Prescriptions as of 10/04/2024 - escitalopram oxalate (LEXAPRO) 20 mg tablet TAKE 1 TABLET BY MOUTH EVERY DAY - prental multivitamin 27 mg iron- 800 mcg tablet Take 1 tablet by mouth once daily. 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] 11/30/2016 09/08/2022 On isotretinoin therapy [Z79.899] 11/30/2016 09/08/2022 History of anxiety [Z86.59] 09/08/2022 Patient request for diagnostic testing [Z01.89] 09/08/2022 02/06/2023 Encounter for supervision of normal first pregn*09/08/2022 02/06/2023 Rh negative state in antepartum period, first t*10/10/2022 02/06/2023 Elevated glucose [R73.09] 01/30/2023 Rh negative state in antepartum period [O26.899*02/01/2023 Thrombocytopenia affecting (HCC) [O99*02/06/2023 HELLP syndrome, [O14.20] 02/07/2023 Prematurity [P07.30] 02/07/2023 Hyponatremia [E87.1] 02/07/2023 state [Z39.2] 02/08/2023 Hypertension complicating , delivered,*02/10/2023 Encounter Status:Closed by CAROLYNERACHEL on 10/04/24 Normal [facility] US BREAST LTD LTon 09-18 [facility] US BREAST LTD LT * * *Final Report* * * DATE OF EXAM: Sep 18 2024 2:45PM WRU 0593 - [facility] US BREAST LTD LT / PROCEDURE REASON: Mass of upper inner quadrant of left breast * * * * Physician Interpretation * * * * [place] [address] #[id number] - [facility] US BREAST LTD LT HISTORY: 24 year-old patient seen for diagnostic evaluation of a palpable abnormality in the left breast. Patient states no personal history of breast cancer. Patient states no personal history of ovarian cancer. COMPARISON STUDIES: The present examination has been compared to prior imaging studies dated 11/18/2020 (ultrasound) and 07/26/2022 (ultrasound). ULTRASOUND TECHNIQUE: Targeted ultrasound of the indicated area was performed. Clayton scale images were saved. ULTRASOUND FINDINGS: There is an oval complicated cyst with circumscribed margins measuring 0.5 cm in the left breast at 10 o'clock. Internal echotexture is hypoechoic. Color flow imaging demonstrates vascularity is not present. IMPRESSION: The 0.5 cm oval complicated cyst in the left breast is probably benign. A follow-up in 6 months is recommended. BI-RADS Category 3: Probably Benign Interpreting Radiologist: Patricia Conteh M.D. Electronically signed on: 09/18/2024 Weighmaster: INDIO Transcribe Date/Time: Sep 18 2024 2:35P Dictated by : PATRICIA CONTEH MD This examination was interpreted and the report reviewed and electronically signed by: PATRICIA CONTEH MD on Sep 18 2024 2:48PM EST [id number] Normal [facility] US Breast - left limitedon 0 09-18-2024 IMPRESSION: The 0.5 cm oval complicated cyst in the left breast is probably benign. A follow-up in 6 months is recommended. BI-RADS Category 3: Probably Benign Interpreting Radiologist: Patricia Conteh M.D. Electronically signed on: 09/18/2024 Weighmaster: INDIO Annrigeorges Date/Time: Sep 18 2024 2:35P Dictated by : PATRICIA CONTEH MD This examination was interpreted and the report reviewed and electronically signed by: PATRICIA CONTEH MD on Sep 18 2024 2:48PM [facility] DIVISION OF RADIOLOGY * * *Final Report* * * DATE OF EXAM: Sep 18 2024 2:45PM [facility] [address] [employer] [facility] / PROCEDURE REASON: Mass of upper inner quadrant of left breast * * * * Physician Interpretation * * * * [place] [address] #[id number] [employer] [facility] HISTORY: 24 year-old patient seen for diagnostic evaluation of a palpable abnormality in the left breast. Patient states no personal history of breast cancer. Patient states no personal history of ovarian cancer. COMPARISON STUDIES: The present examination has been compared to prior imaging studies dated 11/18/2020 (ultrasound) and 07/26/2022 (ultrasound). ULTRASOUND TECHNIQUE: Targeted ultrasound of the indicated area was performed. Clayton scale images were saved. ULTRASOUND FINDINGS: There is an oval complicated cyst with circumscribed margins measuring 0.5 cm in the left breast at 10 o'clock. Internal echotexture is hypoechoic. Color flow imaging demonstrates vascularity is not present. DIVISION OF RADIOLOGY Provider, [facility] - 09/18/2024 * * *Final Report* * * DATE OF EXAM: Sep 18 2024 2:45PM [facility] [address] [employer] [facility] / PROCEDURE REASON: Mass of upper inner quadrant of left breast * * * * Physician Interpretation * * * * [address] [address] #[id number] [employer] [facility] HISTORY: 24 year-old patient seen for diagnostic evaluation of a palpable abnormality in the left breast. Patient states no personal history of breast cancer. Patient states no personal history of ovarian cancer. COMPARISON STUDIES: The present examination has been compared to prior imaging studies dated 11/18/2020 (ultrasound) and 07/26/2022 (ultrasound). ULTRASOUND TECHNIQUE: Targeted ultrasound of the indicated area was performed. Clayton scale images were saved. ULTRASOUND FINDINGS: There is an oval complicated cyst with circumscribed margins measuring 0.5 cm in the left breast at 10 o'clock. Internal echotexture is hypoechoic. Color flow imaging demonstrates vascularity is not present. IMPRESSION IMPRESSION: The 0.5 cm oval complicated cyst in the left breast is probably benign. A follow-up in 6 months is recommended. BI-RADS Category 3: Probably Benign Interpreting Radiologist: Patricia Conteh M.D. Electronically signed on: 09/18/2024 Weighmaster: INDIO Transcribe Date/Time: Sep 18 2024 2:35P Dictated by : PATRICIA CONTEH MD This examination was interpreted and the report reviewed and electronically signed by: PATRICIA CONTEH MD on Sep 18 2024 2:48PM EST [facility] Radiology Study observation (narrative) [facility] US Breast - left limitedOrde red By: [facility] Provider on 09-18-2024 [facility] CNOVon 08-27-2024 CNOV Office Visit (OBGYWM ) NESTOR LOPEZ ([id number]) 2 F Date Time Provider Department 08/27/24 10:20 AM SANDRA VIZCAINO OBGYWM During your visit today, we recorded the following information about you: Blood pressure Weight Height Last Period 110/64 71.2 kg 1.676 m 08/17/24 Sandra Vizcaino MD 08/27/2024 10:54 AM Addendum Cleat Blanker offered: Patient declines. Nestor is a 24 year old who presents for an annual gynecologic exam. H/o anxiety stopped medications. Was seeing counselor recommend restarting anxiety medication. 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: Sexual Activity: Yes; Male Contraception: No contraception data on record PAST MEDICAL HISTORY Diagnosis Date Acne 08/07/2013 Anxiety 08/07/2012 anxiety Back pain 08/07/2014 Resolved breast mass 07/2022 Left Constipation 08/07/2008 Headache 08/07/2012 Heart murmur 05/07/2013 HELLP syndrome, antepartum 02/07/2023 Knee pain Migraine Thumb fracture left age 11 yrs PAST SURGICAL HISTORY Procedure Laterality Date PAST SURGICAL HISTORY OF 12/15/2020 Incision and Drainage, Pilonidal Cyst FAMILY HISTORY Problem Relation Age of Onset Seizures Father Diabetes Maternal Grandfather Hypertension Maternal Grandfather Lipids Maternal Grandfather No Known Problems Paternal Grandmother Cancer Paternal Grandfather Breast Cancer Other Breast Cancer Other 40 SOCIAL HISTORY Social History Tobacco Use Smoking status: Never Smokeless tobacco: Never Vaping Use Vaping status: Never Used Substance Use Topics Alcohol use: Never Drug use: Never REVIEW OF SYSTEMS Abdomen: No abdominal pain, nausea, vomiting, diarrhea, or constipation. No bloating, early satiety, indigestion, or increased flatulence. Bladder: No dysuria, gross hematuria, urinary frequency, urinary urgency, or incontinence. Breast: No breast lumps, nipple d/c, overlying skin changes, redness or skin retraction. Allergies and current medication updated:Yes SENSITIVE EXAM: The sensitive examination was discussed with the Patient or Patient's Authorized Director [employer]icon[employer]. As applicable, any other physician, advance practice provider, medical student, or other health professional student that will be observing or involved in the sensitive examination for educational or training purposes was discussed with the Patient or Authorized Director [employer]iconductor. The Patient or Authorized Director [employer]ductor has agreed to proceed with the sensitive examination. (Sensitive examination includes inspection and/or palpation of the breasts, pelvis, prostate and anorectal regions). EXAM: BP 110/64 Ht 5' 6 (1.68m) Wt 157 lb (71.2kg) LMP 08/17/2024 BMI 25.35 kg/(m2). GENERAL: pleasant, female in no apparent distress HEENT: Normocephalic, atraumatic, mucus membranes moist, and no lesions NECK: Supple, full range of motion, no adenopathy, and thyroid normal DERMATOLOGY: Normal, without lesions, non-icteric, and non-hirsute BREAST: soft, non-tender, symmetric, 10:00 small brianna sized mass ? Fat pad. Pt unsure if changed in size. Breasts are bilaterally lumpy, normal nipple-areolar complex, no lymphadenopathy, and no nipple discharge CHEST: Normal inspiratory effort ABDOMEN: soft, non-tender, and no masses PELVIC: external genitalia normal, normal Bartholin's glands, urethra, [place]'s glands, no vulvar lesions, no cervical lesions, good vaginal support, physiologic discharge present, normal appearing perineal body and perianal region BIMANUAL: uterus normal size, shape and consistency, no adnexal masses, and non-tender RECTOVAGINAL: deferred. NEURO: alert and oriented x3,exam grossly non-focal EXTREMITIES: normal ASSESSMENT/PLAN: 1) Health maintenance: Pap/HPV up to date. Mammogram starting age 40. Nutrition, exercise and routine health maintenance exams reviewed. Calcium/Vitamin D supplementation information provided. HPV vaccine: completed series 2) Contraception: condoms. Contraceptive options reviewed and information provided. 3) STD screening: Declined STD check. 4) Follow up one year or sooner as needed MD Jailene Mina Deidre, MD 08/27/2024 10:54 AM Signed Addended by: SANDRA GODOY on: 08/27/2024 10:54 AM Modules accepted: Orders Allergies As of Date: 08/27/2024 Noted Allergy Reaction SEASONAL ALLERGIES 11/10/2020 14 - Other: See Com (more content not included)... Normal [facility] CBC W Auto Differential pane l (Bld)on 02-14-2023 Anisocytosis Ql (Bld) Present [facility] Basophils (Bld) [#/Vol] 0.00 10*3/uL <0.11 k/uL [facility] Basophils/100 WBC (Bld) 0.0 % [facility] Differential cell count method Nom (Bld) Manual [facility] Eosinophils (Bld) [#/Vol] 0.12 10*3/uL <0.46 k/uL [facility] Eosinophils/100 WBC (Bld) 0.9 % [facility] Erythrocyte distribution width (RBC) [Ratio] 16.8 % High 11.5 - 15.0 % [facility] Hematocrit (Bld) [Volume fraction] 31.8 % Low 36.0 - 46.0 % [facility] Hemoglobin (Bld) [Mass/Vol] 10.3 g/dL Low 11.5 - 15.5 g/dL [facility] Lymphocytes (Bld) [#/Vol] 2.62 10*3/uL 1.00 - 4.00 k/uL [facility] Lymphocytes/100 WBC (Bld) 19.3 % [facility] MCH (RBC) [Entitic mass] 28.0 pg 26. 0 - 34.0 pg [facility] MCHC (RBC) [Mass/Vol] 32.4 g/dL 30.5 - 36.0 g/dL [facility] MCV (RBC) [Entitic vol] 86.4 fL 80.0 - 100.0 fL [facility] Monocytes (Bld) [#/Vol] 0.50 10*3/uL <0.87 k/uL [facility] Monocytes/100 WBC (Bld) 3.7 % [facility] Myelo % 1.8 % [facility] Neutrophils (Bld) [#/Vol] 10.07 10*3/uL High 1.45 - 7.50 k/uL [facility] Neutrophils/100 WBC (Bld) 74.3 % [facility] Nucleated RBC (Bld) [#/Vol] 0.12 10*3/uL High <0.01 k/uL [facility] Nucleated RBC/100 WBC (Bld) [Ratio] 0.9 /100 WBC [facility] Ovalocytes LM Ql (Bld) Few [facility] Platelet mean volume (Bld) [Entitic vol] 9.7 fL 9.0 - 12.7 fL [facility] Platelets (Bld) [#/Vol] 421 10*3/uL High 150 - 400 k/uL [facility] Platelets Estimate (Bld) [#/Vol] Increased [facility] Polychromasia LM Ql (Bld) Slight [facility] RBC (Bld) [#/Vol] 3.68 10*6/uL Low 3.90 - 5.2 0 m/uL [facility] RBC Fragments Few Abnormal None Seen [facility] Red Cell Morph Reviewed: see result s of individual morphologies [facility] WBC (Bld) [#/Vol] 13.55 10*3/uL High 3.70 - 11 .00 k/uL [facility] WBC Left Shift Ql (Bld) Present [facility] Comprehensive metabolic 2000 panelon 02-13-2023 Albumin [Mass/Vol] 4.3 g/dL 3.9 - 4.9 g/dL [facility] ALP [Catalytic activity/Vol] 99 U/L 34 - 123 U/L [facility] ALT [Catalytic activity/Vol] 55 U/L High 7 - 38 U/L [facility] Anion gap [Moles/Vol] 14 mmol/L 9 - 18 mmol/L [facility] AST [Catalytic activity/Vol] 18 U/L 13 - 35 U/L [facility] Bilirubin [Mass/Vol] 0.5 mg/dL 0.2 - 1 .3 mg/dL [facility] Calcium [Mass/Vol] 9.9 mg/dL 8.5 - 10. 2 mg/dL [facility] Chloride [Moles/Vol] 102 mmol/L 97 - 10 5 mmol/L [facility] CO2 [Moles/Vol] 23 mmol/L 22 - 30 mmol/L [facility] Creatinine [Mass/Vol] 0.62 mg/dL 0.58 - 0.96 mg/dL [facility] Estimated Glomerular Filtration Rate 130 mL/min/1.73m >=60 mL/min/1.73m [facility] Glucose [Mass/Vol] 86 mg/dL 74 - 99 mg/dL [facility] Potassium [Moles/Vol] 4.1 mmol/L 3.7 - 5.1 mmol/L [facility] Protein [Mass/Vol] 7.3 g/dL 6.3 - 8.0 g/dL [facility] Sodium [Moles/Vol] 139 mmol/L 136 - 144 mmol/L [facility] Urea nitrogen [Mass/Vol] 13 mg/dL 7 - 21 mg/d L [facility] CBC panel Auto (Bld)on 02-10 Erythrocyte distribution width (RBC) [Ratio] 15.6 % High 11.5-15.0 [facility] Comment on above: Order Comment: Speci men Type: BLOOD SPECIMEN Ordering Facility: [facility] Address: [address] [place] [address] Performed By: #### 5 8410-2 #### [facility] CLIA [id number] [address] Hematocrit (Bld) [Volume fraction] 23.0 % Low 36.0-46.0 [facility] Comment on above: Order Comment: Speci men Type: BLOOD SPECIMEN Ordering Facility: [facility] Address: [address] [place] [address] Performed By: #### 5 8410-2 #### [facility] CLIA [id number] [address] OF [facility] Hemoglobin (Bld) [Mass/Vol] 7.4 g/dL Low 11.5-15.5 [facility] Comment on above: Order Comment: Speci men Type: BLOOD SPECIMEN Ordering Facility: [facility] Address: [address] [place] [address] Performed By: #### 5 8410-2 #### [facility] CLIA [id number] [address] [place] [facility] MCH (RBC) [Entitic mass] 27.3 pg Normal 26.0-34.0 [facility] Comment on above: Order Comment: Speci men Type: BLOOD SPECIMEN [facility] Facility: [facility] Address: [address] [place] [address] Performed By: #### 5 8410-2 #### [facility] CLIA [id number] [address] MCHC (RBC) [Mass/Vol] 32.2 g/dL Normal 30.5-36.0 [facility] Comment on above: Order Comment: Speci men Type: BLOOD SPECIMEN Ordering Facility: [facility] Address: [address] [address] Performed By: #### 5 8410-2 #### [facility] CLIA [id number] [address] MCV (RBC) [Entitic vol] 84.9 fL Normal 80.0-100.0 [facility] Comment on above: Order Comment: Speci men Type: BLOOD SPECIMEN Ordering Facility: [facility] Address: [address] [address] Performed By: #### 5 8410-2 #### [facility] CLIA [id number] [address] OF [place] Nucleated RBC (Bld) [#/Vol] 0.06 10*3/uL High <0.01 [facility] Comment on above: Order Comment: Speci men Type: BLOOD SPECIMEN [facility] Address: [address] [address] Performed By: #### 5 8410-2 #### [facility] CLIA [id number] [address] OF [place] Platelet mean volume (Bld) [Entitic vol] 10.6 fL Normal 9.0-12.7 [facility] Comment on above: Order Comment: Speci men Type: BLOOD SPECIMEN [facility] Address: [address] [address] Performed By: #### 5 8410-2 #### [facility] CLIA [id number] [address] OF [place] Platelets (Bld) [#/Vol] 137 10*3/uL Low 150-400 [facility] Comment on above: Order Comment: Speci men Type: BLOOD SPECIMEN [facility] Address: [address] [address] Performed By: #### 5 8410-2 #### [facility] CLIA [id number] [address] OF [facility] RBC (Bld) [#/Vol] 2.71 10*6/uL Low 3.90-5.20 [facility] Comment on above: Order Comment: Flor martell Type: BLOOD SPECIMEN [facility] Address: [address] [place] [address] Performed By: #### 5 8410-2 #### [facility] CLIA [id number] [address] WBC (Bld) [#/Vol] 14.25 10*3/uL High 3.70-11.00 [facility] Comment on above: Order Comment: Flor martell Type: BLOOD SPECIMEN [facility] Address: [address] [place] [address] Performed By: #### 5 8410-2 #### [facility] CLIA [id number] [address] CNDSon 02-10-2023 CNDS HNO ID: [id number] Author: Mary Paul MD Service: Obstetrics Author Type: Resident Type: Discharge Summary Filed: 02/10/2023 2:30 PM Note Text: Attestation signed by Henrry Gorman MD at 02/12/2023 6:45 PM Stable. All labs were improving. Can be discharged with follow up in 3 days for BP check and should have outpatient follow up this week. I was present with the resident during the discharge services. We discussed the case and I agree with the findings and discharge plan as documented in their note. I personally spent < 30 minutes in discharge day management. Henrry Gorman Division of Maternal Medicine [facility] DISCHARGE SUMMARY OBSTETRICS PATIENT NAME: Nestor Lopez ADMISSION DATE: 02/06/2023 DISCHARGE DATE: 02/10/2023 Attending Physician: Areli Whitehead MD Code Status: Not on file Treatment Team: Attending Provider: Areli Whitehead MD Consulting: Jean Hernandez MD Reason for Hospitalization: Intrauterine . Principal Problem: Hypertension complicating , delivered, current hospitalization POA: Yes Active Problems: History of anxiety POA: Yes Rh negative state in antepartum period POA: Yes Thrombocytopenia affecting (HCC) POA: Yes HELLP syndrome, POA: Unknown Hyponatremia POA: Yes state POA: Unknown Resolved Problems: * No resolved hospital problems. * PROCEDURES/SURGERY DURING HOSPITALIZATION: Delivery Summary: [place]ruthi Angela [[id number]] Delivery Information: Delivery Date: 02/07/23 Delivery type: , Low Transverse Delivering Clinician: Areli Whitehead MD Vacuum Used: No Forceps Used: No Glenvil: Gender: Female Weight (grams): 1340 g One Minute : 1 Five Minute : 2 Procedures (if applicable) Recent Surgical Summary Past Procedures (01/11/2023 to Today) Date Procedures Providers Location 02/07/2023 SECTION Areli Whitehead (Primary)Yarely Sherwood [facility] Hospital Course: 22 year old female who is Postoperative Day #3 from delivery as noted above. 22yo who initially presented to [facility] for evaluation of abdominal pain, nausea, and vomiting. She was diagnosed with HELLP syndrome given low platelets (40) and elevated liver enzymes (221/205 AST/ALT). She was transferred to [facility] for further management. She underwent urgent low transverse section under general anesthesia on 02/07 at 29w0d with delivery of a liveborn female infant, Shruthi. weight was 2lb 15 oz and initial Apgars were 1, 2, and 7. The was stabilized and transferred to [facility]. She initially had CBC, CMP trended every 6 hours. She had hyponatremia which prompted evaluation by Hospital Medicine, which was later attributed to be falsely decreased. Nestor met all post-operative milestones and was feeling well by POD#1. On POD#1, she had an additional increase in her LFTs and decrease in platelets, which improved by POD#2 on serial trends. Her blood pressures remained normal throughout. Her was also complicated by Rh negative status for which she received Rhogam and anxiety which was well controlled. She was discharged home on POD#3. 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 Consulting Teams During Hospitalization: Hospital Medicine: Dr. Elliott Obstetrics: Dr. Whitehead, Dr. Gorman Patient Condition @ Discharge: Good Discharge Disposition: Home/Self Care Specific Concerns for Follow-up Post Discharge: Routine Care and HELLP Syndrome Information Provided to Patient: Activity When You Leave the Hospital Gradually increase your activity level until back to normal at approximately 6 weeks post- (Walking and stairs as tolerated) May use stairs No baths for 6 weeks to allow the cervix to close (this includes swimming pools and hot tubs) No driving for 2 weeks No driving until you stop taking narcotic medicine and you are able to respond to adverse traffic conditions: Until you are not too sore to stop or turn quickly No lifting greater than 15 pounds for six weeks No walking restrictions Shower daily, towel or blow dry incision (low heat setting) Six Weeks Pelvic Rest - This means no sex, tampons, douching or any items in your vagina Diet Instructions Resume a regular diet with emphasis on healthy and iron rich foods. Nursing moms need 500 EXTRA calories a day to support breast milk production. Wound/Surgical Site Care Check your incision for signs of infection: redness, swelling, drainage Do not apply any lotions or powders near any incision Do not cover incision with any bandage Keep your incision clean and dry Steri-strips may fall off in the shower. If they have not fallen off on their own af (more content not included)... Normal [facility] Comprehensive metabolic 2000 panelon 02-10-2023 Albumin [Mass/Vol] 3.1 g/dL Low 3.9-4.9 [facility] Comment on above: Order Comment: Speci men Type: BLOOD SPECIMEN [facility] Address: [address] [address] Performed By: #### 2 4323-8, 3084-1, 76201-1 #### [facility] CLIA [id number] [address] ALP [Catalytic activity/Vol] 85 U/L Normal 34-123 [facility] Comment on above: Order Comment: Speci men Type: BLOOD SPECIMEN [facility] Address: [address] [address] Performed By: #### 2 4323-8, 3084-1, 93277-7 #### [facility] CLIA [id number] [address] ALT With P-5'-P [Catalytic activity/Vol] 121 U/L High 7-38 [facility] Comment on above: Order Comment: Speci men Type: BLOOD SPECIMEN [facility] Address: [address] [place] [address] Performed By: #### 2 4323-8, 4-1, 26737-0 #### [facility] CLIA [id number] [address] Anion gap [Moles/Vol] 10 mmol/L Normal 9-18 [facility] Comment on above: Order Comment: Speci men Type: BLOOD SPECIMEN [facility] Address: [address] [place] [address] Performed By: #### 2 4323-8, 3084-1, 06068-5 #### [facility] CLIA [id number] [address] AST With P-5'-P [Catalytic activity/Vol] 46 U/L High 13-35 [facility] Comment on above: Order Comment: Speci men Type: BLOOD SPECIMEN [facility] Address: [address] [address] Performed By: #### 2 4323-8, 3084-1, 08711-9 #### [facility] CLIA [id number] [address] [place] Bilirubin [Mass/Vol] 0.4 mg/dL Normal 0.2-1.3 [facility] Comment on above: Order Comment: Speci men Type: BLOOD SPECIMEN [facility] Address: [address] [place] [address] Performed By: #### 2 4323-8, 4-1, 41834-7 #### [facility] CLIA [id number] [address] [place] [address] [place] Calcium [Mass/Vol] 9.1 mg/dL Normal 8.5-10.2 [facility] Comment on above: Order Comment: Speci men Type: BLOOD SPECIMEN [facility] Address: [address] [place] [address] Performed By: #### 2 4323-8, 3083-, 58620-5 #### [facility] CLIA [id number] [address] [place] Chloride [Moles/Vol] 103 mmol/L Normal 97-105 [facility] Comment on above: Order Comment: Speci men Type: BLOOD SPECIMEN [facility] Address: [address] [place] [address] Performed By: #### 2 4323-8, 3083-1, 63788-7 #### [facility] CLIA [id number] [address] [place] [address] [place] CO2 [Moles/Vol] 26 mmol/L Normal 22-30 [facility] Comment on above: Order Comment: Speci men Type: BLOOD SPECIMEN [facility] Address: [address] [place] [address] Performed By: #### 2 4323-8, 3083-1, 52770-3 #### [facility] CLIA [id number] [address] [place] Creatinine [Mass/Vol] 0.53 mg/dL Low 0.58-0.96 [facility] Comment on above: Order Comment: Miriambob martell Type: BLOOD SPECIMEN Order[facility] Address: [address] [id number] Performed By: #### 2 4323-8, 3084-1, 58955-2 #### [facility] CLIA [id number] [address] [place] ESTIMATED GLOMERULAR FILTRATION RATE 135 mL/min/1.73m??? Normal >=60 [facility] Comment on above: Order Comment: Flor jayshree Type: BLOOD SPECIMEN Order[facility] Facility[facility] Address: [address] Result Comment: Majo mated Glomerular Filtration Rate (eGFR) is calculated using the 2020 CKD-EPI creatinine equation. This equation utilizes serum creatinine, sex, and age as parameters. The creatinine assay has traceable calibration to isotope dilution-mass spectrometry. Refer to KDIGO guidelines for clinical interpretation. In patients with unstable renal function, e.g. those with acute kidney injury, the eGFR may not accurately reflect actual GFR. Performed By: #### 2 4323-8, 3084-1, 73410-5 #### [facility] CLIA [id number] 1 [place] [address] [place] Glucose [Mass/Vol] 83 mg/dL Normal 74-99 [facility] Comment on above: Order Comment: Flor martell Type: BLOOD SPECIMEN [facility] Address: [address] [address] Result Comment: The [place] [employer] (ADA) provides guidance for cutoff values for fasting glucose and random glucose. The ADA defines fasting as no caloric intake for at least 8 hours. Fasting plasma glucose results between 100 to 125 mg/dL indicate increased risk for diabetes (prediabetes). Fasting plasma glucose results greater than or equal to 126 mg/dL meet the criteria for diagnosis of diabetes. In the absence of unequivocal hyperglycemia, results should be confirmed by repeat testing. In a patient with classic symptoms of hyperglycemia or hyperglycemic crisis, random plasma glucose results greater than or equal to 200 mg/dL meet the criteria for diagnosis of diabetes. Reference: Standards of Medical Care in Diabetes 2016, [place] [employer]. Diabetes Care. 2016.39(Suppl 1). Performed By: #### 2 4323-8, 3084-1, 87030-9 #### [facility] CLIA [id number] [address] [place] Potassium [Moles/Vol] 3.9 mmol/L Normal 3.7-5.1 [facility] Comment on above: Order Comment: Speci men Type: BLOOD SPECIMEN [facility] Address: [address] [address] Performed By: #### 2 4323-8, 3084-1, 78504-9 #### [facility] CLIA [id number] [address] [place] [address] [place] Protein [Mass/Vol] 5.6 g/dL Low 6.3-8.0 [facility] Comment on above: Order Comment: Speci men Type: BLOOD SPECIMEN [facility] Address: [address] [address] Performed By: #### 2 4323-8, 3084-1, 58353-7 #### [facility] CLIA [id number] [address] [place] Sodium [Moles/Vol] 139 mmol/L Normal 136-144 [facility] Comment on above: Order Comment: Speci men Type: BLOOD SPECIMEN [facility] Address: [address] [address] Performed By: #### 2 4323-8, 3084-1, 03341-4 #### [facility] CLIA [id number] [address] [place] [address] [place] Urea nitrogen [Mass/Vol] 9 mg/dL Normal 7-21 [facility] Comment on above: Order Comment: Speci men Type: BLOOD SPECIMEN [facility] Address: [address] [address] Performed By: #### 2 4323-8, 3084-1, 87016-5 #### [facility] CLIA [id number] [address] OF [facility] NURSING PROGon 02-10-2023 NURSING PROG HNO ID: [id number] Author: Yuli Vera RN Service: Nursing Author Type: Registered Nurse Type: Nursing Progress Note Filed: 02/09/2023 10:10 PM Note Text: Patient received phone call from [facility] that is not doing well at this time and to have her phone available to be contacted. Patient and family upset and anxious and would like to go to [facility] to visit. Patient does have an order for a pass to visit at [facility]. However, this RN clarified with Dr. Sherwood the requirements of patient to visit throughout the night. She must return for vital signs checked q4h and q12 am lab draw at 0600. Spoke with patient and family and they are understanding of requirements. Normal [facility] CBC panel Auto (Bld)on 02-09 Erythrocyte distribution width (RBC) [Ratio] 15.6 % High 11.5-15.0 [facility] Comment on above: Order Comment: Speci men Type: BLOOD SPECIMEN [facility] Address: [address] [place] [address] Performed By: #### 5 8410-2 #### [facility] CLIA [id number] [address] Hematocrit (Bld) [Volume fraction] 26.0 % Low 36.0-46.0 [facility] Comment on above: Order Comment: Speci men Type: BLOOD SPECIMEN [facility] Address: [address] [address] Performed By: #### 5 8410-2 #### [facility] CLIA [id number] [address] [place] Hemoglobin (Bld) [Mass/Vol] 8.5 g/dL Low 11.5-15.5 [facility] Comment on above: Order Comment: Speci men Type: BLOOD SPECIMEN [facility] Address: [address] [address] Performed By: #### 5 8410-2 #### [facility] CLIA [id number] [address] MCH (RBC) [Entitic mass] 27.6 pg Normal 26.0-34.0 [facility] Comment on above: Order Comment: Speci men Type: BLOOD SPECIMEN [facility] Address: [address] [place] [address] Performed By: #### 5 8410-2 #### [facility] CLIA [id number] [address] MCHC (RBC) [Mass/Vol] 32.7 g/dL Normal 30.5-36.0 [facility] Comment on above: Order Comment: Speci men Type: BLOOD SPECIMEN [facility] Address: [address] [place] [address] Performed By: #### 5 8410-2 #### [facility] CLIA [id number] [address] MCV (RBC) [Entitic vol] 84.4 fL Normal 80.0-100.0 [facility] Comment on above: Order Comment: Speci men Type: BLOOD SPECIMEN [facility] Address: [address] [place] [address] Performed By: #### 5 8410-2 #### [facility] CLIA [id number] [address] Nucleated RBC (Bld) [#/Vol] 0.08 10*3/uL High <0.01 [facility] Comment on above: Order Comment: Speci men Type: BLOOD SPECIMEN [facility] Address: [address] [place] [address] Performed By: #### 5 8410-2 #### [facility] CLIA [id number] [address] Platelet mean volume (Bld) [Entitic vol] 10.7 fL Normal 9.0-12.7 [facility] Comment on above: Order Comment: Speci men Type: BLOOD SPECIMEN [facility] Address: [address] [address] Performed By: #### 5 8410-2 #### [facility] CLIA [id number] [address] Platelets (Bld) [#/Vol] 143 10*3/uL Low 150-400 [facility] Comment on above: Order Comment: Speci men Type: BLOOD SPECIMEN [facility] Address: [address] [place] [address] Result Comment: No c lot detected. Performed By: #### 5 8410-2 #### [facility] CLIA [id number] [address] RBC (Bld) [#/Vol] 3.08 10*6/uL Low 3.90-5.20 [facility] Comment on above: Order Comment: Speci men Type: BLOOD SPECIMEN Ordering Facility: [facility] Address: [address] [place] [address] Performed By: #### 5 8410-2 #### [facility] CLIA [id number] [address] WBC (Bld) [#/Vol] 17.67 10*3/uL High 3.70-11.00 [facility] Comment on above: Order Comment: Speci men Type: BLOOD SPECIMEN Ordering Facility: [facility] Address: [address] [place] [address] Performed By: #### 5 8410-2 #### [facility] CLIA [id number] [address] Erythrocyte distribution width (RBC) [Ratio] 15.8 % High 11.5-15.0 [facility] Comment on above: Order Comment: Speci men Type: BLOOD SPECIMEN Ordering Facility: [facility] Address: [address] [place] [address] Performed By: #### 5 8410-2 #### [facility] CLIA [id number] [address] Hematocrit (Bld) [Volume fraction] 21.2 % Low 36.0-46.0 [facility] Comment on above: Order Comment: Speci men Type: BLOOD SPECIMEN Ordering Facility: [facility] Address: [address] [place] [address] Performed By: #### 5 8410-2 #### [facility] CLIA [id number] [address] OF [facility] Hemoglobin (Bld) [Mass/Vol] 7.1 g/dL Low 11.5-15.5 [facility] Comment on above: Order Comment: Speci men Type: BLOOD SPECIMEN Ordering Facility: [facility] Address: [address] [place] [address] Performed By: #### 5 8410-2 #### [facility] CLIA [id number] [address] MCH (RBC) [Entitic mass] 28.1 pg Normal 26.0-34.0 [facility] Comment on above: Order Comment: Speci men Type: BLOOD SPECIMEN Ordering Facility: [facility] Address: [address] [place] [address] Performed By: #### 5 8410-2 #### [facility] CLIA [id number] [address] OF [facility] MCHC (RBC) [Mass/Vol] 33.5 g/dL Normal 30.5-36.0 [facility] Comment on above: Order Comment: Speci men Type: BLOOD SPECIMEN [facility]ing Facility: [facility] Address: [address] [place] [address] Performed By: #### 5 8410-2 #### [facility] CLIA [id number] [address] MCV (RBC) [Entitic vol] 83.8 fL Normal 80.0-100.0 [facility] Comment on above: Order Comment: Speci men Type: BLOOD SPECIMEN Order[facility] Facility: [facility] Address: [address] [place] [address] Performed By: #### 5 8410-2 #### [facility] CLIA [id number] [address] Nucleated RBC (Bld) [#/Vol] 0.07 10*3/uL High <0.01 [facility] Comment on above: Order Comment: Speci men Type: BLOOD SPECIMEN [facility] Address: [address] [place] [address] Performed By: #### 5 8410-2 #### [facility] CLIA [id number] [address] Platelet mean volume (Bld) [Entitic vol] 10.0 fL Normal 9.0-12.7 [facility] Comment on above: Order Comment: Speci men Type: BLOOD SPECIMEN [facility] Address: [address] [place] [address] Performed By: #### 5 8410-2 #### [facility] CLIA [id number] [address] Platelets (Bld) [#/Vol] 73 10*3/uL Low 150-400 [facility] Comment on above: Order Comment: Speci men Type: BLOOD SPECIMEN [facility] Facility[facility] Address: [address] [place] [address] Result Comment: No c lot detected. Performed By: #### 5 8410-2 #### [facility] CLIA [id number] [address] RBC (Bld) [#/Vol] 2.53 10*6/uL Low 3.90-5.20 [facility] Comment on above: Order Comment: Speci men Type: BLOOD SPECIMEN Order[facility]: [facility] Address: [address] [place] [address] Performed By: #### 5 8410-2 #### [facility] CLIA [id number] [address] [place] WBC (Bld) [#/Vol] 13.68 10*3/uL High 3.70-11.00 [facility] Comment on above: Order Comment: Speci men Type: BLOOD SPECIMEN Ordering Facility: [facility] Address: [address] [place] [address] Performed By: #### 5 8410-2 #### [facility] CLIA [id number] [address] Comprehensive metabolic 2000 panelon 02-09-2023 Albumin [Mass/Vol] 3.5 g/dL Low 3.9-4.9 [facility] Comment on above: Order Comment: Speci men Type: BLOOD SPECIMEN [facility] Address: [address] [place] [address] Performed By: #### 5 8410-2 #### [facility] CLIA [id number] [address] OF [facility] ALP [Catalytic activity/Vol] 96 U/L Normal 34-123 [facility] Comment on above: Order Comment: Speci men Type: BLOOD SPECIMEN [facility] Address: [address] [place] [address] Performed By: #### 5 8410-2 #### [facility] CLIA [id number] [address] ALT With P-5'-P [Catalytic activity/Vol] 157 U/L High 7-38 [facility] Comment on above: Order Comment: Speci men Type: BLOOD SPECIMEN [facility] Address: [address] [place] [address] Performed By: #### 5 8410-2 #### [facility] CLIA [id number] [address] Anion gap [Moles/Vol] 12 mmol/L Normal 9-18 [facility] Comment on above: Order Comment: Speci men Type: BLOOD SPECIMEN [facility] Address: [address] [place] [address] Performed By: #### 5 8410-2 #### [facility] CLIA [id number] [address] [place] AST With P-5'-P [Catalytic activity/Vol] 67 U/L High 13-35 [facility] Comment on above: Order Comment: Speci men Type: BLOOD SPECIMEN [facility] Address: [address] [place] [address] Performed By: #### 5 8410-2 #### [facility] CLIA [id number] [address] [place] Bilirubin [Mass/Vol] 0.4 mg/dL Normal 0.2-1.3 [facility] Comment on above: Order Comment: Speci men Type: BLOOD SPECIMEN [facility] Address: [address] [place] [address] Performed By: #### 5 8410-2 #### [facility] CLIA [id number] [address] [place] Calcium [Mass/Vol] 9.8 mg/dL Normal 8.5-10.2 [facility] Comment on above: Order Comment: Speci men Type: BLOOD SPECIMEN [facility] Address: [address] [place] [address] Performed By: #### 5 8410-2 #### [facility] CLIA [id number] [address] [place] Chloride [Moles/Vol] 102 mmol/L Normal 97-105 [facility] Comment on above: Order Comment: Speci men Type: BLOOD SPECIMEN [facility] Address: [address] [place] [address] Performed By: #### 5 8410-2 #### [facility] CLIA [id number] [address] [place] CO2 [Moles/Vol] 24 mmol/L Normal 22-30 [facility] Comment on above: Order Comment: Speci men Type: BLOOD SPECIMEN Ordering Facility[facility] Address: [address] [address] Performed By: #### 5 8410-2 #### [facility] CLIA [id number] [address] STATES OF [facility] Creatinine [Mass/Vol] 0.53 mg/dL Low 0.58-0.96 [facility] Comment on above: Order Comment: Flor martell Type: BLOOD SPECIMEN Order[facility] Address: [address] [place] [address] Performed By: #### 5 8410-2 #### [facility] CLIA [id number] [address] OF [facility] ESTIMATED GLOMERULAR FILTRATION RATE 135 mL/min/1.73m??? Normal >=60 [facility] Comment on above: Order Comment: Flor martell Type: BLOOD SPECIMEN Order[facility] Address: [address] [place] [address] Result Comment: Majo mated Glomerular Filtration Rate (eGFR) is calculated using the 2020 CKD-EPI creatinine equation. This equation utilizes serum creatinine, sex, and age as parameters. The creatinine assay has traceable calibration to isotope dilution-mass spectrometry. Refer to KDIGO guidelines for clinical interpretation. In patients with unstable renal function, e.g. those with acute kidney injury, the eGFR may not accurately reflect actual GFR. Performed By: #### 5 8410-2 #### [facility] CLIA [id number] [address] Glucose [Mass/Vol] 111 mg/dL High 74-99 [facility] Comment on above: Order Comment: Flor martell Type: BLOOD SPECIMEN [facility] Address: [address] [place] [address] Result Comment: The [place] [employer] (ADA) provides guidance for cutoff values for fasting glucose and random glucose. The ADA defines fasting as no caloric intake for at least 8 hours. Fasting plasma glucose results between 100 to 125 mg/dL indicate increased risk for diabetes (prediabetes). Fasting plasma glucose results greater than or equal to 126 mg/dL meet the criteria for diagnosis of diabetes. In the absence of unequivocal hyperglycemia, results should be confirmed by repeat testing. In a patient with classic symptoms of hyperglycemia or hyperglycemic crisis, random plasma glucose results greater than or equal to 200 mg/dL meet the criteria for diagnosis of diabetes. Reference: Standards of Medical Care in Diabetes 2016, [place] [employer]. Diabetes Care. 2016.39(Suppl 1). Performed By: #### 5 8410-2 #### [facility] CLIA [id number] [address] [place] Potassium [Moles/Vol] 4.1 mmol/L Normal 3.7-5.1 [facility] Comment on above: Order Comment: Speci men Type: BLOOD SPECIMEN [facility] Address: [address] [place] [address] Performed By: #### 5 8410-2 #### [facility] CLIA [id number] [address] [place] Protein [Mass/Vol] 6.2 g/dL Low 6.3-8.0 [facility] Comment on above: Order Comment: Speci men Type: BLOOD SPECIMEN [facility] Address: [address] [address] Performed By: #### 5 8410-2 #### [facility] CLIA [id number] [address] STATES OF [facility] Sodium [Moles/Vol] 138 mmol/L Normal 136-144 [facility] Comment on above: Order Comment: Speci men Type: BLOOD SPECIMEN Order[facility] Address: [address] [address] Performed By: #### 5 8410-2 #### [facility] CLIA [id number] [address] [place] Urea nitrogen [Mass/Vol] 8 mg/dL Normal 7-21 [facility] Comment on above: Order Comment: Speci men Type: BLOOD SPECIMEN Order[facility] Address: [address] [address] Performed By: #### 5 8410-2 #### [facility] CLIA [id number] [address] Albumin [Mass/Vol] 2.8 g/dL Low 3.9-4.9 [facility] Comment on above: Order Comment: Speci men Type: BLOOD SPECIMEN Order[facility] Address: [address] [place] [address] Performed By: #### 5 8410-2 #### [facility] CLIA [id number] [address] ALP [Catalytic activity/Vol] 75 U/L Normal 34-123 [facility] Comment on above: Order Comment: Speci men Type: BLOOD SPECIMEN [facility] Address: [address] [place] [address] Performed By: #### 5 8410-2 #### [facility] CLIA [id number] [address] ALT With P-5'-P [Catalytic activity/Vol] 155 U/L High 7-38 [facility] Comment on above: Order Comment: Speci men Type: BLOOD SPECIMEN [facility] Address: [address] [place] [address] Performed By: #### 5 8410-2 #### [facility] CLIA [id number] [address] Anion gap [Moles/Vol] 9 mmol/L Normal 9-18 [facility] Comment on above: Order Comment: Speci men Type: BLOOD SPECIMEN [facility] Address: [address] [address] Performed By: #### 5 8410-2 #### [facility] CLIA [id number] [address] AST With P-5'-P [Catalytic activity/Vol] 95 U/L High 13-35 [facility] Comment on above: Order Comment: Speci men Type: BLOOD SPECIMEN [facility] Address: [address] [address] Performed By: #### 5 8410-2 #### [facility] CLIA [id number] [address] [place] Bilirubin [Mass/Vol] 0.7 mg/dL Normal 0.2-1.3 [facility] Comment on above: Order Comment: Speci men Type: BLOOD SPECIMEN [facility] Address: [address] [place] [address] Performed By: #### 5 8410-2 #### [facility] CLIA [id number] [address] [place] Calcium [Mass/Vol] 8.3 mg/dL Low 8.5-10.2 [facility] Comment on above: Order Comment: Speci men Type: BLOOD SPECIMEN [facility] Address: [address] [place] [address] Performed By: #### 5 8410-2 #### [facility] CLIA [id number] [address] [place] Chloride [Moles/Vol] 102 mmol/L Normal 97-105 [facility] Comment on above: Order Comment: Speci men Type: BLOOD SPECIMEN [facility] Address: [address] [place] [address] Performed By: #### 5 8410-2 #### [facility] CLIA [id number] [address] [place] CO2 [Moles/Vol] 25 mmol/L Normal 22-30 [facility] Comment on above: Order Comment: Speci men Type: BLOOD SPECIMEN [facility] Address: [address] [place] [address] Performed By: #### 5 8410-2 #### [facility] CLIA [id number] [address] [place] Creatinine [Mass/Vol] 0.55 mg/dL Low 0.58-0.96 [facility] Comment on above: Order Comment: Speci men Type: BLOOD SPECIMEN [facility] Address: [address] [place] [address] Performed By: #### 5 8410-2 #### [facility] CLIA [id number] 1 [place] [address] [place] ESTIMATED GLOMERULAR FILTRATION RATE 134 mL/min/1.73m??? Normal >=60 [facility] Comment on above: Order Comment: Flor jayshree Type: BLOOD SPECIMEN [facility] Address: [address] [place] [address] Result Comment: Majo mated Glomerular Filtration Rate (eGFR) is calculated using the 2020 CKD-EPI creatinine equation. This equation utilizes serum creatinine, sex, and age as parameters. The creatinine assay has traceable calibration to isotope dilution-mass spectrometry. Refer to KDIGO guidelines for clinical interpretation. In patients with unstable renal function, e.g. those with acute kidney injury, the eGFR may not accurately reflect actual GFR. Performed By: #### 5 8410-2 #### [facility] CLIA [id number] 1 [place] [address] [place] Glucose [Mass/Vol] 82 mg/dL Normal 74-99 [facility] Comment on above: Order Comment: Specbob martell Type: BLOOD SPECIMEN [facility] Address: [address] [place] [address] Result Comment: The [place] [employer] (ADA) provides guidance for cutoff values for fasting glucose and random glucose. The ADA defines fasting as no caloric intake for at least 8 hours. Fasting plasma glucose results between 100 to 125 mg/dL indicate increased risk for diabetes (prediabetes). Fasting plasma glucose results greater than or equal to 126 mg/dL meet the criteria for diagnosis of diabetes. In the absence of unequivocal hyperglycemia, results should be confirmed by repeat testing. In a patient with classic symptoms of hyperglycemia or hyperglycemic crisis, random plasma glucose results greater than or equal to 200 mg/dL meet the criteria for diagnosis of diabetes. Reference: Standards of Medical Care in Diabetes 2016, [place] [employer]. Diabetes Care. 2016.39(Suppl 1). Performed By: #### 5 8410-2 #### [facility] CLIA [id number] 1 [place] [address] [place] Potassium [Moles/Vol] 3.9 mmol/L Normal 3.7-5.1 [facility] Comment on above: Order Comment: Speci men Type: BLOOD SPECIMEN [facility] Address: [address] [address] Performed By: #### 5 8410-2 #### [facility] CLIA [id number] [address] STATES [place] [facility] Protein [Mass/Vol] 5.0 g/dL Low 6.3-8.0 [facility] Comment on above: Order Comment: Speci men Type: BLOOD SPECIMEN [facility] Address: [address] [address] Performed By: #### 5 8410-2 #### [facility] CLIA [id number] [address] OF [facility] Sodium [Moles/Vol] 136 mmol/L Normal 136-144 [facility] Comment on above: Order Comment: Speci men Type: BLOOD SPECIMEN [facility] Address: [address] [address] Performed By: #### 5 8410-2 #### [facility] CLIA [id number] [address] [place] [facility] Urea nitrogen [Mass/Vol] 8 mg/dL Normal 7-21 [facility] Comment on above: Order Comment: Speci men Type: BLOOD SPECIMEN [facility] Address: [address] [address] Performed By: #### 5 8410-2 #### [facility] CLIA [id number] [address] [place] CBC panel Auto (Bld)on 02-08 Erythrocyte distribution width (RBC) [Ratio] 15.3 % High 11.5-15.0 [facility] Comment on above: Order Comment: Speci men Type: BLOOD SPECIMEN [facility] Address: [address] [address] Performed By: #### 5 8410-2 #### [facility] CLIA [id number] [address] Hematocrit (Bld) [Volume fraction] 21.5 % Low 36.0-46.0 [facility] Comment on above: Order Comment: Speci men Type: BLOOD SPECIMEN [facility] Address: [address] [place] [address] Performed By: #### 5 8410-2 #### [facility] CLIA [id number] [address] Hemoglobin (Bld) [Mass/Vol] 7.3 g/dL Low 11.5-15.5 [facility] Comment on above: Order Comment: Speci men Type: BLOOD SPECIMEN [facility] Address: [address] [place] [address] Performed By: #### 5 8410-2 #### [facility] CLIA [id number] [address] MCH (RBC) [Entitic mass] 28.3 pg Normal 26.0-34.0 [facility] Comment on above: Order Comment: Speci men Type: BLOOD SPECIMEN [facility] Address: [address] [place] [address] Performed By: #### 5 8410-2 #### [facility] CLIA [id number] [address] MCHC (RBC) [Mass/Vol] 34.0 g/dL Normal 30.5-36.0 [facility] Comment on above: Order Comment: Speci men Type: BLOOD SPECIMEN [facility] Address: [address] [place] [address] Performed By: #### 5 8410-2 #### [facility] CLIA [id number] [address] MCV (RBC) [Entitic vol] 83.3 fL Normal 80.0-100.0 [facility] Comment on above: Order Comment: Speci men Type: BLOOD SPECIMEN [facility] Address: [address] [address] Performed By: #### 5 8410-2 #### [facility] CLIA [id number] [address] OF [facility] Nucleated RBC (Bld) [#/Vol] 0.06 10*3/uL High <0.01 [facility] Comment on above: Order Comment: Speci men Type: BLOOD SPECIMEN [facility] Address: [address] [place] [address] Performed By: #### 5 8410-2 #### [facility] CLIA [id number] [address] Platelet mean volume (Bld) [Entitic vol] 10.2 fL Normal 9.0-12.7 [facility] Comment on above: Order Comment: Speci men Type: BLOOD SPECIMEN [facility] Address: [address] [place] [address] Performed By: #### 5 8410-2 #### [facility] CLIA [id number] [address] Platelets (Bld) [#/Vol] 69 10*3/uL Low 150-400 A [facility] Comment on above: Order Comment: Speci men Type: BLOOD SPECIMEN [facility] Address: [address] [place] [address] Result Comment: No c lot detected. Performed By: #### 5 8410-2 #### [facility] CLIA [id number] [address] OF [facility] RBC (Bld) [#/Vol] 2.58 10*6/uL Low 3.90-5.20 [facility] Comment on above: Order Comment: Speci men Type: BLOOD SPECIMEN [facility] Address: [address] [place] [address] Performed By: #### 5 8410-2 #### [facility] CLIA [id number] [address] [place] WBC (Bld) [#/Vol] 13.63 10*3/uL High 3.70-11.00 [facility] Comment on above: Order Comment: Speci men Type: BLOOD SPECIMEN [facility] Address: [address] [place] [address] Performed By: #### 5 8410-2 #### [facility] CLIA [id number] [address] OF [facility] Erythrocyte distribution width (RBC) [Ratio] 15.5 % High 11.5-15.0 [facility] Comment on above: Order Comment: Speci men Type: BLOOD SPECIMEN [facility] Address: [address] [place] [address] Performed By: #### 5 8410-2 #### [facility] CLIA [id number] [address] Hematocrit (Bld) [Volume fraction] 23.5 % Low 36.0-46.0 [facility] Comment on above: Order Comment: Speci men Type: BLOOD SPECIMEN [facility] Address: [address] [place] [address] Performed By: #### 5 8410-2 #### [facility] CLIA [id number] [address] Hemoglobin (Bld) [Mass/Vol] 7.8 g/dL Low 11.5-15.5 [facility] Comment on above: Order Comment: Speci men Type: BLOOD SPECIMEN [facility] Address: [address] [place] [address] Performed By: #### 5 8410-2 #### [facility] CLIA [id number] [address] MCH (RBC) [Entitic mass] 27.4 pg Normal 26.0-34.0 [facility] Comment on above: Order Comment: Speci men Type: BLOOD SPECIMEN [facility] Address: [address] [place] [address] Performed By: #### 5 8410-2 #### [facility] CLIA [id number] [address] MCHC (RBC) [Mass/Vol] 33.2 g/dL Normal 30.5-36.0 [facility] Comment on above: Order Comment: Speci men Type: BLOOD SPECIMEN [facility] Address: [address] [place] [address] Performed By: #### 5 8410-2 #### [facility] CLIA [id number] [address] MCV (RBC) [Entitic vol] 82.5 fL Normal 80.0-100.0 [facility] Comment on above: Order Comment: Speci men Type: BLOOD SPECIMEN Ordering Facility: [facility] Address: [address] [place] [address] Performed By: #### 5 8410-2 #### [facility] CLIA [id number] [address] Nucleated RBC (Bld) [#/Vol] 10*3/uL Normal <0.01 [facility] Comment on above: Order Comment: Speci men Type: BLOOD SPECIMEN Ordering Facility: [facility] Address: [address] [place] [address] Performed By: #### 5 8410-2 #### [facility] CLIA [id number] [address] Platelet mean volume (Bld) [Entitic vol] 10.5 fL Normal 9.0-12.7 [facility] Comment on above: Order Comment: Speci men Type: BLOOD SPECIMEN Ordering Facility: [facility] Address: [address] [place] [address] Performed By: #### 5 8410-2 #### [facility] CLIA [id number] [address] [place] Platelets (Bld) [#/Vol] 66 10*3/uL Low 150-400 A [facility] Comment on above: Order Comment: Speci men Type: BLOOD SPECIMEN Ordering Facility: [facility] Address: [address] [address] Result Comment: No c lot detected. Performed By: #### 5 8410-2 #### [facility] CLIA [id number] [address] OF [facility] RBC (Bld) [#/Vol] 2.85 10*6/uL Low 3.90-5.20 [facility] Comment on above: Order Comment: Speci men Type: BLOOD SPECIMEN Ordering Facility: [facility] Address: [address] [address] Performed By: #### 5 8410-2 #### [facility] CLIA [id number] [address] OF [facility] WBC (Bld) [#/Vol] 11.79 10*3/uL High 3.70-11.00 [facility] Comment on above: Order Comment: Speci men Type: BLOOD SPECIMEN Ordering Facility: [facility] Address: [address] [address] Performed By: #### 5 8410-2 #### [facility] CLIA [id number] [address] Erythrocyte distribution width (RBC) [Ratio] 15.2 % High 11.5-15.0 [facility] Comment on above: Order Comment: Speci men Type: BLOOD SPECIMEN Ordering Facility: [facility] Address: [address] [address] Performed By: #### 5 8410-2 #### [facility] CLIA [id number] [address] Hematocrit (Bld) [Volume fraction] 23.7 % Low 36.0-46.0 [facility] Comment on above: Order Comment: Speci men Type: BLOOD SPECIMEN Ordering Facility: [facility] Address: [address] [address] Performed By: #### 5 8410-2 #### [facility] CLIA [id number] [address] OF [facility] Hemoglobin (Bld) [Mass/Vol] 8.0 g/dL Low 11.5-15.5 [facility] Comment on above: Order Comment: Speci men Type: BLOOD SPECIMEN Ordering Facility: [facility] Address: [address] [place] [address] Performed By: #### 5 8410-2 #### [facility] CLIA [id number] [address] MCH (RBC) [Entitic mass] 27.9 pg Normal 26.0-34.0 [facility] Comment on above: Order Comment: Speci men Type: BLOOD SPECIMEN Ordering Facility: [facility] Address: [address] [place] [address] Performed By: #### 5 8410-2 #### [facility] CLIA [id number] [address] MCHC (RBC) [Mass/Vol] 33.8 g/dL Normal 30.5-36.0 [facility] Comment on above: Order Comment: Speci men Type: BLOOD SPECIMEN Ordering Facility: [facility] Address: [address] [place] [address] Performed By: #### 5 8410-2 #### [facility] CLIA [id number] [address] MCV (RBC) [Entitic vol] 82.6 fL Normal 80.0-100.0 [facility] Comment on above: Order Comment: Speci men Type: BLOOD SPECIMEN Ordering Facility: [facility] Address: [address] [place] [address] Performed By: #### 5 8410-2 #### [facility] CLIA [id number] [address] Nucleated RBC (Bld) [#/Vol] 10*3/uL Normal <0.01 [facility] Comment on above: Order Comment: Speci men Type: BLOOD SPECIMEN Ordering Facility: [facility] Address: [address] [address] Performed By: #### 5 8410-2 #### [facility] CLIA [id number] [address] Platelet mean volume (Bld) [Entitic vol] 10.1 fL Normal 9.0-12.7 [facility] Comment on above: Order Comment: Speci men Type: BLOOD SPECIMEN Ordering Facility: [facility] Address: [address] [address] Performed By: #### 5 8410-2 #### [facility] CLIA [id number] [address] Platelets (Bld) [#/Vol] 83 10*3/uL Low 150-400 [facility] Comment on above: Order Comment: Speci men Type: BLOOD SPECIMEN Order[facility] Facility: [facility] Address: [address] [place] [address] Result Comment: No c lot detected. Performed By: #### 5 8410-2 #### [facility] CLIA [id number] [address] RBC (Bld) [#/Vol] 2.87 10*6/uL Low 3.90-5.20 [facility] Comment on above: Order Comment: Speci men Type: BLOOD SPECIMEN Ordering Facility: [facility] Address: [address] [address] Performed By: #### 5 8410-2 #### [facility] CLIA [id number] [address] OF [facility] WBC (Bld) [#/Vol] 13.01 10*3/uL High 3.70-11.00 [facility] Comment on above: Order Comment: Speci men Type: BLOOD SPECIMEN Order[facility] Facility: [facility] Address: [address] [place] [address] Performed By: #### 5 8410-2 #### [facility] CLIA [id number] [address] [place] Erythrocyte distribution width (RBC) [Ratio] 14.8 % Normal 11.5-15.0 [facility] Comment on above: Order Comment: Speci men Type: BLOOD SPECIMEN Order[facility] Facility: [facility] Address: [address] [place] [address] Performed By: #### 2 4323-8, 3084-1, 14403-5 #### [facility] CLIA [id number] [address] Hematocrit (Bld) [Volume fraction] 23.4 % Low 36.0-46.0 [facility] Comment on above: Order Comment: Speci men Type: BLOOD SPECIMEN Order[facility] Facility: [facility] Address: [address] [place] [address] Performed By: #### 2 4323-8, 4-1, 08683-3 #### [facility] CLIA [id number] [address] [place] [address] Hemoglobin (Bld) [Mass/Vol] 7.8 g/dL Low 11.5-15.5 [facility] Comment on above: Order Comment: Speci men Type: BLOOD SPECIMEN Order[facility] Facility: [facility] Address: [address] [place] [address] Performed By: #### 2 4323-8, 4-1, 17974-1 #### [facility] CLIA [id number] [address] [place] [address] OF [facility] MCH (RBC) [Entitic mass] 27.7 pg Normal 26.0-34.0 [facility] Comment on above: Order Comment: Speci men Type: BLOOD SPECIMEN Order[facility] Facility[facility] Address: [address] [place] [address] Performed By: #### 2 4323-8, 3084-1, 38506-8 #### [facility] CLIA [id number] [address] [place] MCHC (RBC) [Mass/Vol] 33.3 g/dL Normal 30.5-36.0 [facility] Comment on above: Order Comment: Speci men Type: BLOOD SPECIMEN Ordering Facility: [facility] Address: [address] [address] Performed By: #### 2 4323-8, 3083-, 39229-2 #### [facility] CLIA [id number] [address] [place] MCV (RBC) [Entitic vol] 83.0 fL Normal 80.0-100.0 [facility] Comment on above: Order Comment: Speci men Type: BLOOD SPECIMEN Order[facility] Facility[facility] Address: [address] [place] [address] Performed By: #### 2 4323-8, 3083-08, #### [facility] CLIA [id number] [address] [place] [address] OF [facility] Nucleated RBC (Bld) [#/Vol] 10*3/uL Normal <0.01 [facility] Comment on above: Order Comment: Speci men Type: BLOOD SPECIMEN Order[facility] Facility: [facility] Address: [address] [place] [address] Performed By: #### 2 4323-8, 3083-08, #### [facility] CLIA [id number] [address] [place] [address] [place] Platelet mean volume (Bld) [Entitic vol] 11.0 fL Normal 9.0-12.7 [facility] Comment on above: Order Comment: Speci men Type: BLOOD SPECIMEN Ordering Facility[facility] Address: [address] [address] Performed By: #### 2 4323-8, 1, 81344-8 #### [facility] CLIA [id number] [address] [place] Platelets (Bld) [#/Vol] 95 10*3/uL Low 150-400 A [facility] Comment on above: Order Comment: Speci men Type: BLOOD SPECIMEN Ordering Facility: [facility] Address: [address] [address] Result Comment: No c lot detected. Performed By: #### 2 4323-8, 3084-1, 66147-1 #### [facility] CLIA [id number] [address] RBC (Bld) [#/Vol] 2.82 10*6/uL Low 3.90-5.20 [facility] Comment on above: Order Comment: Speci men Type: BLOOD SPECIMEN Order[facility] Address: [address] [address] Performed By: #### 2 4323-8, 3084-1, 17430-2 #### [facility] CLIA [id number] [address] WBC (Bld) [#/Vol] 14.31 10*3/uL High 3.70-11.00 [facility] Comment on above: Order Comment: Speci men Type: BLOOD SPECIMEN Order[facility] Address: [address] [address] Performed By: #### 2 4323-8, 3083-1, 36221-2 #### [facility] CLIA [id number] [address] OF [facility] Erythrocyte distribution width (RBC) [Ratio] 14.6 % Normal 11.5-15.0 [facility] Comment on above: Order Comment: Speci men Type: BLOOD SPECIMEN [facility] Address: [address] [address] Performed By: #### 2 4323-8, 3084-1, 44442-1 #### [facility] CLIA [id number] [address] Hematocrit (Bld) [Volume fraction] 26.6 % Low 36.0-46.0 [facility] Comment on above: Order Comment: Speci men Type: BLOOD SPECIMEN [facility] Address: [address] [address] Performed By: #### 2 4323-8, 3083-, 08660-1 #### [facility] CLIA [id number] [address] Hemoglobin (Bld) [Mass/Vol] 9.1 g/dL Low 11.5-15.5 [facility] Comment on above: Order Comment: Speci men Type: BLOOD SPECIMEN [facility] Address: [address] [place] [address] Performed By: #### 2 4323-8, 3083-, 96735-4 #### [facility] CLIA [id number] [address] MCH (RBC) [Entitic mass] 27.8 pg Normal 26.0-34.0 [facility] Comment on above: Order Comment: Speci men Type: BLOOD SPECIMEN [facility] Address: [address] [place] [address] Performed By: #### 2 432-8, 3083-08, 53040-2 #### [facility] CLIA [id number] [address] MCHC (RBC) [Mass/Vol] 34.2 g/dL Normal 30.5-36.0 [facility] Comment on above: Order Comment: Speci men Type: BLOOD SPECIMEN [facility] Address: [address] [place] [address] Performed By: #### 2 4323-8, 3083-08, 20923-3 #### [facility] CLIA [id number] [address] MCV (RBC) [Entitic vol] 81.3 fL Normal 80.0-100.0 [facility] Comment on above: Order Comment: Speci men Type: BLOOD SPECIMEN [facility] Address: [address] [address] Performed By: #### 2 4323-8, 3083-1, 18921-9 #### [facility] CLIA [id number] [address] [place] Nucleated RBC (Bld) [#/Vol] 10*3/uL Normal <0.01 [facility] Comment on above: Order Comment: Speci men Type: BLOOD SPECIMEN [facility] Address: [address] [place] [address] Performed By: #### 2 4323-8, 3084-1, 10286-8 #### [facility] CLIA [id number] [address] Platelet mean volume (Bld) [Entitic vol] 10.9 fL Normal 9.0-12.7 [facility] Comment on above: Order Comment: Speci men Type: BLOOD SPECIMEN [facility] Address: [address] [place] [address] Performed By: #### 2 4323-8, 4-1, 27882-8 #### [facility] CLIA [id number] [address] Platelets (Bld) [#/Vol] 121 10*3/uL Low 150-400 [facility] Comment on above: Order Comment: Speci men Type: BLOOD SPECIMEN [facility] Address: [address] [place] [address] Performed By: #### 2 4323-8, 3083-1, 61473-4 #### [facility] CLIA [id number] [address] [place] RBC (Bld) [#/Vol] 3.27 10*6/uL Low 3.90-5.20 [facility] Comment on above: Order Comment: Speci men Type: BLOOD SPECIMEN [facility] Address: [address] [place] [address] Performed By: #### 2 4323-8, 3084-1, 86297-2 #### [facility] CLIA [id number] [address] [place] WBC (Bld) [#/Vol] 15.95 10*3/uL High 3.70-11.00 [facility] Comment on above: Order Comment: Speci men Type: BLOOD SPECIMEN [facility] Address: [address] [place] [address] Performed By: #### 2 4323-8, 3084-1, 35165-6 #### [facility] CLIA [id number] [address] Calcium.ionized [Moles/Vol]o n 02-08-2023 Calcium.ionized (BldV) [Mass/Vol] 1.08 mmol/L Normal 1.08-1.30 [facility] Comment on above: Order Comment: Speci men Type: BLOOD SPECIMEN [facility] Address: [address] [place] [address] Performed By: #### 5 8410-2 #### [facility] CLIA [id number] [address] [place] [address] Calcium.ionized adjusted to pH 7.4 (Bld) [Moles/Vol] 1.09 mmol/L Normal 1.08-1.30 [facility] Comment on above: Order Comment: Speci men Type: BLOOD SPECIMEN [facility] Address: [address] [place] [address] Performed By: #### 5 8410-2 #### [facility] CLIA [id number] [address] [place] [address] Comprehensive metabolic 2000 panelon 02-08-2023 Albumin [Mass/Vol] 2.9 g/dL Low 3.9-4.9 [facility] Comment on above: Order Comment: Speci men Type: BLOOD SPECIMEN [facility] Address: [address] [place] [address] Performed By: #### 2 4323-8, 3084-1, 19186-8 #### [facility] CLIA [id number] [address] ALP [Catalytic activity/Vol] 80 U/L Normal 34-123 [facility] Comment on above: Order Comment: Speci men Type: BLOOD SPECIMEN [facility] Address: [address] [address] Performed By: #### 2 4323-8, 3084-1, 07981-8 #### [facility] CLIA [id number] [address] OF [facility] ALT With P-5'-P [Catalytic activity/Vol] 178 U/L High 7-38 [facility] Comment on above: Order Comment: Speci men Type: BLOOD SPECIMEN [facility] Address: [address] [address] Performed By: #### 2 4323-8, 3084-1, 80894-3 #### [facility] CLIA [id number] [address] OF [facility] Anion gap [Moles/Vol] 10 mmol/L Normal 9-18 [facility] Comment on above: Order Comment: Speci men Type: BLOOD SPECIMEN [facility] Address: [address] [address] Performed By: #### 2 4323-8, 4-1, 08738-0 #### [facility] CLIA [id number] [address] AST With P-5'-P [Catalytic activity/Vol] 126 U/L High 13-35 [facility] Comment on above: Order Comment: Speci men Type: BLOOD SPECIMEN [facility] Address: [address] [address] Performed By: #### 2 4323-8, 3084-1, 72875-5 #### [facility] CLIA [id number] [address] OF [facility] Bilirubin [Mass/Vol] 1.1 mg/dL Normal 0.2-1.3 [facility] Comment on above: Order Comment: Speci men Type: BLOOD SPECIMEN [facility] Address: [address] [address] Performed By: #### 2 4323-8, 3084-1, 32201-1 #### [facility] CLIA [id number] [address] [place] Calcium [Mass/Vol] 8.2 mg/dL Low 8.5-10.2 [facility] Comment on above: Order Comment: Speci men Type: BLOOD SPECIMEN [facility] Address: [address] [place] [address] Performed By: #### 2 4323-8, 3084-1, 39791-8 #### [facility] CLIA [id number] [address] [place] Chloride [Moles/Vol] 103 mmol/L Normal 97-105 [facility] Comment on above: Order Comment: Speci men Type: BLOOD SPECIMEN [facility] Address: [address] [place] [address] Performed By: #### 2 4323-8, 3084-1, 68025-1 #### [facility] CLIA [id number] [address] [place] CO2 [Moles/Vol] 24 mmol/L Normal 22-30 [facility] Comment on above: Order Comment: Speci men Type: BLOOD SPECIMEN [facility] Address: [address] [place] [address] Performed By: #### 2 4323-8, 3084-1, 58990-0 #### [facility] CLIA [id number] [address] [place] Creatinine [Mass/Vol] 0.62 mg/dL Normal 0.58-0.96 [facility] Comment on above: Order Comment: Speci men Type: BLOOD SPECIMEN [facility] Address: [address] [place] [address] Performed By: #### 2 4323-8, 3084-1, 52141-1 #### [facility] CLIA [id number] [address] [place] ESTIMATED GLOMERULAR FILTRATION RATE 130 mL/min/1.73m??? Normal >=60 [facility] Comment on above: Order Comment: Flor martell Type: BLOOD SPECIMEN Order[facility] Facility: [facility] Address: [address] [place] [address] Result Comment: Majo mated Glomerular Filtration Rate (eGFR) is calculated using the 2020 CKD-EPI creatinine equation. This equation utilizes serum creatinine, sex, and age as parameters. The creatinine assay has traceable calibration to isotope dilution-mass spectrometry. Refer to KDIGO guidelines for clinical interpretation. In patients with unstable renal function, e.g. those with acute kidney injury, the eGFR may not accurately reflect actual GFR. Performed By: #### 2 4323-8, 3084-1, 40807-5 #### [facility] CLIA [id number] [address] [place] [address] [place] Glucose [Mass/Vol] 82 mg/dL Normal 74-99 [facility] Comment on above: Order Comment: Flor martell Type: BLOOD SPECIMEN [facility] Address: [address] [place] [address] Result Comment: The [place] [employer] (ADA) provides guidance for cutoff values for fasting glucose and random glucose. The ADA defines fasting as no caloric intake for at least 8 hours. Fasting plasma glucose results between 100 to 125 mg/dL indicate increased risk for diabetes (prediabetes). Fasting plasma glucose results greater than or equal to 126 mg/dL meet the criteria for diagnosis of diabetes. In the absence of unequivocal hyperglycemia, results should be confirmed by repeat testing. In a patient with classic symptoms of hyperglycemia or hyperglycemic crisis, random plasma glucose results greater than or equal to 200 mg/dL meet the criteria for diagnosis of diabetes. Reference: Standards of Medical Care in Diabetes 2016, [place] [employer]. Diabetes Care. 2016.39(Suppl 1). Performed By: #### 2 4323-8, 3084-1, 67609-1 #### [facility] CLIA [id number] [address] [place] [address] [place] Potassium [Moles/Vol] 3.9 mmol/L Normal 3.7-5.1 [facility] Comment on above: Order Comment: Speci men Type: BLOOD SPECIMEN [facility] Address: [address] [address] Performed By: #### 2 4323-8, 3084-1, 94177-1 #### [facility] CLIA [id number] [address] [place] Protein [Mass/Vol] 5.0 g/dL Low 6.3-8.0 [facility] Comment on above: Order Comment: Speci men Type: BLOOD SPECIMEN [facility] Address: [address] [address] Performed By: #### 2 4323-8, 3083-1, 25952-5 #### [facility] CLIA [id number] [address] [place] Sodium [Moles/Vol] 137 mmol/L Normal 136-144 [facility] Comment on above: Order Comment: Speci men Type: BLOOD SPECIMEN [facility] Facility[facility] Address: [address] [address] Performed By: #### 2 4323-8, 3083-1, 50428-7 #### [facility] CLIA [id number] [address] [place] Urea nitrogen [Mass/Vol] 8 mg/dL Normal 7-21 [facility] Comment on above: Order Comment: Speci men Type: BLOOD SPECIMEN [facility] Address: [address] [address] Performed By: #### 2 4323-8, 4-1, 01323-6 #### [facility] CLIA [id number] [address] [place] Albumin [Mass/Vol] 3.0 g/dL Low 3.9-4.9 [facility] Comment on above: Order Comment: Speci men Type: BLOOD SPECIMEN [facility] Address: [address] [address] Performed By: #### 2 4323-8, 3084-1, 79946-6 #### [facility] CLIA [id number] [address] OF [facility] ALP [Catalytic activity/Vol] 77 U/L Normal 34-123 [facility] Comment on above: Order Comment: Speci men Type: BLOOD SPECIMEN [facility] Facility[facility] Address: [address] [place] [address] Performed By: #### 2 4323-8, 3084-1, 76033-3 #### [facility] CLIA [id number] [address] ALT With P-5'-P [Catalytic activity/Vol] 196 U/L High 7-38 [facility] Comment on above: Order Comment: Speci men Type: BLOOD SPECIMEN [facility] Address: [address] [place] [address] Performed By: #### 2 4323-8, 3083-1, 65822-3 #### [facility] CLIA [id number] [address] Anion gap [Moles/Vol] 10 mmol/L Normal 9-18 [facility] Comment on above: Order Comment: Speci men Type: BLOOD SPECIMEN [facility] Address: [address] [place] [address] Performed By: #### 2 4323-8, 4-1, 86233-0 #### [facility] CLIA [id number] [address] AST With P-5'-P [Catalytic activity/Vol] 163 U/L High 13-35 [facility] Comment on above: Order Comment: Speci men Type: BLOOD SPECIMEN [facility] Address: [address] [place] [address] Performed By: #### 2 4323-8, 3084-1, 09566-5 #### [facility] CLIA [id number] [address] Bilirubin [Mass/Vol] 1.3 mg/dL Normal 0.2-1.3 [facility] Comment on above: Order Comment: Speci men Type: BLOOD SPECIMEN Ordering Facility: [facility] Address: [address] [place] [address] Performed By: #### 2 4323-8, 4-1, 93973-7 #### [facility] CLIA [id number] [address] [place] Calcium [Mass/Vol] 7.9 mg/dL Low 8.5-10.2 [facility] Comment on above: Order Comment: Speci men Type: BLOOD SPECIMEN Ordering Facility: [facility] Address: [address] [place] [address] Performed By: #### 2 4323-8, 3083-1, 91208-7 #### [facility] CLIA [id number] [address] [place] Chloride [Moles/Vol] 104 mmol/L Normal 97-105 [facility] Comment on above: Order Comment: Speci men Type: BLOOD SPECIMEN Ordering Facility: [facility] Address: [address] [place] [address] Performed By: #### 2 4323-8, 1, 26841-6 #### [facility] CLIA [id number] [address] [place] CO2 [Moles/Vol] 24 mmol/L Normal 22-30 [facility] Comment on above: Order Comment: Speci men Type: BLOOD SPECIMEN Ordering Facility: [facility] Address: [address] [place] [address] Performed By: #### 2 4323-8, 3083-1, 68053-8 #### [facility] CLIA [id number] 1 [place] [address] [place] Creatinine [Mass/Vol] 0.58 mg/dL Normal 0.58-0.96 [facility] Comment on above: Order Comment: Speci men Type: BLOOD SPECIMEN Ordering Facility: [facility] Address: [address] [place] [address] Performed By: #### 2 4323-8, 3084-1, 49421-4 #### [facility] CLIA [id number] [address] ESTIMATED GLOMERULAR FILTRATION RATE 132 mL/min/1.73m??? Normal >=60 [facility] Comment on above: Order Comment: Flor martell Type: BLOOD SPECIMEN Ordering Facility: [facility] Address: [address] [place] [address] Result Comment: Majo mated Glomerular Filtration Rate (eGFR) is calculated using the 2020 CKD-EPI creatinine equation. This equation utilizes serum creatinine, sex, and age as parameters. The creatinine assay has traceable calibration to isotope dilution-mass spectrometry. Refer to KDIGO guidelines for clinical interpretation. In patients with unstable renal function, e.g. those with acute kidney injury, the eGFR may not accurately reflect actual GFR. Performed By: #### 2 4323-8, 3084-1, 24396-8 #### [facility] CLIA [id number] [address] [place] [address] [place] Glucose [Mass/Vol] 82 mg/dL Normal 74-99 [facility] Comment on above: Order Comment: Flor martell Type: BLOOD SPECIMEN Ordering Facility: [facility] Address: [address] [place] [address] Result Comment: The [place] [employer] (ADA) provides guidance for cutoff values for fasting glucose and random glucose. The ADA defines fasting as no caloric intake for at least 8 hours. Fasting plasma glucose results between 100 to 125 mg/dL indicate increased risk for diabetes (prediabetes). Fasting plasma glucose results greater than or equal to 126 mg/dL meet the criteria for diagnosis of diabetes. In the absence of unequivocal hyperglycemia, results should be confirmed by repeat testing. In a patient with classic symptoms of hyperglycemia or hyperglycemic crisis, random plasma glucose results greater than or equal to 200 mg/dL meet the criteria for diagnosis of diabetes. Reference: Standards of Medical Care in Diabetes 2016, [place] [employer]. Diabetes Care. 2016.39(Suppl 1). Performed By: #### 2 4323-8, 3084-1, 40144-7 #### [facility] CLIA [id number] 1 [place] [address] [place] Potassium [Moles/Vol] 3.9 mmol/L Normal 3.7-5.1 [facility] Comment on above: Order Comment: Speci men Type: BLOOD SPECIMEN Ordering Facility: [facility] Address: [address] [place] [address] Performed By: #### 2 4323-8, 3084-1, 55204-8 #### [facility] CLIA [id number] 1 [place] [address] [place] Protein [Mass/Vol] 5.1 g/dL Low 6.3-8.0 [facility] Comment on above: Order Comment: Speci men Type: BLOOD SPECIMEN Ordering Facility: [facility] Address: [address] [place] [address] Performed By: #### 2 4323-8, 4-1, 90900-1 #### [facility] CLIA [id number] [address] [place] Sodium [Moles/Vol] 138 mmol/L Normal 136-144 [facility] Comment on above: Order Comment: Speci men Type: BLOOD SPECIMEN Ordering Facility: [facility] Address: [address] [place] [address] Performed By: #### 2 4323-8, 4-1, 23997-6 #### [facility] CLIA [id number] [address] [place] Urea nitrogen [Mass/Vol] 8 mg/dL Normal 7-21 [facility] Comment on above: Order Comment: Speci men Type: BLOOD SPECIMEN Ordering Facility: [facility] Address: [address] [place] [address] Performed By: #### 2 4323-8, 4-1, 23857-5 #### [facility] CLIA [id number] 1 [place] [address] [place] Albumin [Mass/Vol] 2.9 g/dL Low 3.9-4.9 [facility] Comment on above: Order Comment: Speci men Type: BLOOD SPECIMEN Ordering Facility: [facility] Address: [address] [address] Performed By: #### 2 4323-8, 3084-1, 69438-7 #### [facility] CLIA [id number] [address] OF [facility] ALP [Catalytic activity/Vol] 72 U/L Normal 34-123 [facility] Comment on above: Order Comment: Speci men Type: BLOOD SPECIMEN Ordering Facility: [facility] Address: [address] [address] Performed By: #### 2 4323-8, 4-1, 82570-7 #### [facility] CLIA [id number] [address] STATES OF [facility] ALT With P-5'-P [Catalytic activity/Vol] 211 U/L High 7-38 [facility] Comment on above: Order Comment: Speci men Type: BLOOD SPECIMEN Ordering Facility: [facility] Address: [address] [address] Performed By: #### 2 4323-8, 3083-1, 32347-2 #### [facility] CLIA [id number] [address] Anion gap [Moles/Vol] 10 mmol/L Normal 9-18 [facility] Comment on above: Order Comment: Speci men Type: BLOOD SPECIMEN Ordering Facility: [facility] Address: [address] [address] Performed By: #### 2 4323-8, 3084-1, 09378-2 #### [facility] CLIA [id number] [address] OF [facility] AST With P-5'-P [Catalytic activity/Vol] 201 U/L High 13-35 [facility] Comment on above: Order Comment: Speci men Type: BLOOD SPECIMEN Ordering Facility: [facility] Address: [address] [address] Performed By: #### 2 4323-8, 3083-1, 20892-0 #### [facility] CLIA [id number] 1 [place] [address] [place] Bilirubin [Mass/Vol] 1.3 mg/dL Normal 0.2-1.3 [facility] Comment on above: Order Comment: Speci men Type: BLOOD SPECIMEN Ordering Facility: [facility] Address: [address] [place] [address] Performed By: #### 2 4323-8, 3083-, 20512-3 #### [facility] CLIA [id number] [address] [place] Calcium [Mass/Vol] 7.7 mg/dL Low 8.5-10.2 [facility] Comment on above: Order Comment: Speci men Type: BLOOD SPECIMEN Ordering Facility: [facility] Address: [address] [place] [address] Performed By: #### 2 432-8, 3083-08, 25751-8 #### [facility] CLIA [id number] [address] [place] Chloride [Moles/Vol] 104 mmol/L Normal 97-105 [facility] Comment on above: Order Comment: Speci men Type: BLOOD SPECIMEN Ordering Facility: [facility] Address: [address] [place] [address] Performed By: #### 2 4323-8, 3083-08, 12781-9 #### [facility] CLIA [id number] 1 [place] [address] [place] CO2 [Moles/Vol] 23 mmol/L Normal 22-30 [facility] Comment on above: Order Comment: Speci men Type: BLOOD SPECIMEN Ordering Facility: [facility] Address: [address] [place] [address] Performed By: #### 2 4323-8, 3083-1, 84379-0 #### [facility] CLIA [id number] [address] [place] Creatinine [Mass/Vol] 0.54 mg/dL Low 0.58-0.96 [facility] Comment on above: Order Comment: Flor martell Type: BLOOD SPECIMEN Ordering Facility: [facility] Address: [address] [place] [id number] Performed By: #### 2 4323-8, 3084-1, 99667-0 #### [facility] CLIA [id number] [address] [place] ESTIMATED GLOMERULAR FILTRATION RATE 135 mL/min/1.73m??? Normal >=60 [facility] Comment on above: Order Comment: Flor martell Type: BLOOD SPECIMEN Ordering Facility: [facility] Address: [address] [place] [address] Result Comment: Majo mated Glomerular Filtration Rate (eGFR) is calculated using the 2020 CKD-EPI creatinine equation. This equation utilizes serum creatinine, sex, and age as parameters. The creatinine assay has traceable calibration to isotope dilution-mass spectrometry. Refer to KDIGO guidelines for clinical interpretation. In patients with unstable renal function, e.g. those with acute kidney injury, the eGFR may not accurately reflect actual GFR. Performed By: #### 2 4323-8, 3084-1, 98428-1 #### [facility] CLIA [id number] [address] [place] Glucose [Mass/Vol] 82 mg/dL Normal 74-99 [facility] Comment on above: Order Comment: Flor martell Type: BLOOD SPECIMEN Ordering Facility: [facility] Address: [address] [place] [address] Result Comment: The [place] [employer] (ADA) provides guidance for cutoff values for fasting glucose and random glucose. The ADA defines fasting as no caloric intake for at least 8 hours. Fasting plasma glucose results between 100 to 125 mg/dL indicate increased risk for diabetes (prediabetes). Fasting plasma glucose results greater than or equal to 126 mg/dL meet the criteria for diagnosis of diabetes. In the absence of unequivocal hyperglycemia, results should be confirmed by repeat testing. In a patient with classic symptoms of hyperglycemia or hyperglycemic crisis, random plasma glucose results greater than or equal to 200 mg/dL meet the criteria for diagnosis of diabetes. Reference: Standards of Medical Care in Diabetes 2016, [place] [employer]. Diabetes Care. 2016.39(Suppl 1). Performed By: #### 2 4323-8, 3084-1, 03065-9 #### [id number] CLIA [id number] 1 [place] [address] [place] Potassium [Moles/Vol] 4.0 mmol/L Normal 3.7-5.1 [facility] Comment on above: Order Comment: Speci men Type: BLOOD SPECIMEN Ordering Facility[facility] Address: [address] [address] Performed By: #### 2 4323-8, 3084-1, 54589-0 #### [facility] CLIA [id number] [address] [place] Protein [Mass/Vol] 5.2 g/dL Low 6.3-8.0 [facility] Comment on above: Order Comment: Speci men Type: BLOOD SPECIMEN Ordering [facility] Address: [address] [address] Performed By: #### 2 4323-8, 3083-1, 50922-5 #### [facility] CLIA [id number] [address] [place] Sodium [Moles/Vol] 137 mmol/L Normal 136-144 [facility] Comment on above: Order Comment: Speci men Type: BLOOD SPECIMEN Ordering Facility[facility] Address: [address] [address] Performed By: #### 2 4323-8, 3083-1, 99412-7 #### [facility] CLIA [id number] 1 [place] [address] [place] Urea nitrogen [Mass/Vol] 9 mg/dL Normal 7-21 [facility] Comment on above: Order Comment: Speci men Type: BLOOD SPECIMEN Ordering [facility] Address: [address] [address] Performed By: #### 2 4323-8, 4-1, 61016-2 #### [facility] CLIA [id number] [address] [place] Albumin [Mass/Vol] 2.6 g/dL Low 3.9-4.9 [facility] Comment on above: Order Comment: Speci men Type: BLOOD SPECIMEN Ordering [facility] Address: [address] [place] [address] Performed By: #### 5 8410-2 #### [facility] CLIA [id number] [address] [place] ALP [Catalytic activity/Vol] 72 U/L Normal 34-123 [facility] Comment on above: Order Comment: Speci men Type: BLOOD SPECIMEN Ordering Facility[facility] Address: [address] [place] [address] Performed By: #### 5 8410-2 #### [facility] CLIA [id number] [address] ALT With P-5'-P [Catalytic activity/Vol] 204 U/L High 7-38 [facility] Comment on above: Order Comment: Speci men Type: BLOOD SPECIMEN Order[facility] Address: [address] [place] [address] Performed By: #### 5 8410-2 #### [facility] CLIA [id number] [address] Anion gap [Moles/Vol] 10 mmol/L Normal 9-18 [facility] Comment on above: Order Comment: Speci men Type: BLOOD SPECIMEN Order[facility] Address: [address] [place] [address] Performed By: #### 5 8410-2 #### [facility] CLIA [id number] [address] [place] AST With P-5'-P [Catalytic activity/Vol] 263 U/L High 13-35 [facility] Comment on above: Order Comment: Speci men Type: BLOOD SPECIMEN Ordering [facility] Address: [address] [place] [address] Performed By: #### 5 8410-2 #### [facility] CLIA [id number] [address] [place] Bilirubin [Mass/Vol] 0.7 mg/dL Normal 0.2-1.3 [facility] Comment on above: Order Comment: Speci men Type: BLOOD SPECIMEN Order[facility] Address: [address] [place] [address] Performed By: #### 5 8410-2 #### [facility] CLIA [id number] [address] [place] Calcium [Mass/Vol] 7.0 mg/dL Low 8.5-10.2 [facility] Comment on above: Order Comment: Speci men Type: BLOOD SPECIMEN [facility] Address: [address] [place] [address] Performed By: #### 5 8410-2 #### [facility] CLIA [id number] 1 [place] [address] [place] Chloride [Moles/Vol] 103 mmol/L Normal 97-105 [facility] Comment on above: Order Comment: Speci men Type: BLOOD SPECIMEN Order[facility] Address: [address] [place] [address] Performed By: #### 5 8410-2 #### [facility] CLIA [id number] [address] [place] CO2 [Moles/Vol] 24 mmol/L Normal 22-30 [facility] Comment on above: Order Comment: Speci men Type: BLOOD SPECIMEN [facility] Address: [address] [place] [address] Performed By: #### 5 8410-2 #### [facility] CLIA [id number] 1 [place] [address] [place] Creatinine [Mass/Vol] 0.56 mg/dL Low 0.58-0.96 [facility] Comment on above: Order Comment: Speci men Type: BLOOD SPECIMEN Order[facility] Address: [address] [place] [address] Performed By: #### 5 8410-2 #### [facility] CLIA [id number] [address] ESTIMATED GLOMERULAR FILTRATION RATE 133 mL/min/1.73m??? Normal >=60 [facility] Comment on above: Order Comment: Flor martell Type: BLOOD SPECIMEN Ordering [facility] Address: [address] [place] [address] Result Comment: Majo mated Glomerular Filtration Rate (eGFR) is calculated using the 2020 CKD-EPI creatinine equation. This equation utilizes serum creatinine, sex, and age as parameters. The creatinine assay has traceable calibration to isotope dilution-mass spectrometry. Refer to KDIGO guidelines for clinical interpretation. In patients with unstable renal function, e.g. those with acute kidney injury, the eGFR may not accurately reflect actual GFR. Performed By: #### 5 8410-2 #### [facility] CLIA [id number] [address] [place] [address] [place] Glucose [Mass/Vol] 100 mg/dL High 74-99 [facility] Comment on above: Order Comment: Flor martell Type: BLOOD SPECIMEN Order[facility] Address: [address] [place] [address] Result Comment: The [place] [employer] (ADA) provides guidance for cutoff values for fasting glucose and random glucose. The ADA defines fasting as no caloric intake for at least 8 hours. Fasting plasma glucose results between 100 to 125 mg/dL indicate increased risk for diabetes (prediabetes). Fasting plasma glucose results greater than or equal to 126 mg/dL meet the criteria for diagnosis of diabetes. In the absence of unequivocal hyperglycemia, results should be confirmed by repeat testing. In a patient with classic symptoms of hyperglycemia or hyperglycemic crisis, random plasma glucose results greater than or equal to 200 mg/dL meet the criteria for diagnosis of diabetes. Reference: Standards of Medical Care in Diabetes 2016, [place] [employer]. Diabetes Care. 2016.39(Suppl 1). Performed By: #### 5 8410-2 #### [facility] CLIA [id number] [address] Potassium [Moles/Vol] 3.8 mmol/L Normal 3.7-5.1 [facility] Comment on above: Order Comment: Speci men Type: BLOOD SPECIMEN Order[facility] Address: [address] [address] Performed By: #### 5 8410-2 #### [facility] CLIA [id number] [address] [place] Protein [Mass/Vol] 4.9 g/dL Low 6.3-8.0 [facility] Comment on above: Order Comment: Speci men Type: BLOOD SPECIMEN [facility] Address: [address] [place] [address] Performed By: #### 5 8410-2 #### [facility] CLIA [id number] [address] STATES [facility] Sodium [Moles/Vol] 137 mmol/L Normal 136-144 [facility] Comment on above: Order Comment: Speci men Type: BLOOD SPECIMEN [facility] Address: [address] [place] [address] Performed By: #### 5 8410-2 #### [facility] CLIA [id number] [address] [place] Urea nitrogen [Mass/Vol] 9 mg/dL Normal 7-21 [facility] Comment on above: Order Comment: Speci men Type: BLOOD SPECIMEN [facility] Address: [address] [address] Performed By: #### 5 8410-2 #### [facility] CLIA [id number] [address] [place] Albumin [Mass/Vol] 3.0 g/dL Low 3.9-4.9 [facility] Comment on above: Order Comment: Speci men Type: BLOOD SPECIMEN [facility] Address: [address] [address] Performed By: #### 5 8410-2 #### [facility] CLIA [id number] [address] ALP [Catalytic activity/Vol] 73 U/L Normal 34-123 [facility] Comment on above: Order Comment: Speci men Type: BLOOD SPECIMEN [facility] Address: [address] [address] Performed By: #### 5 8410-2 #### [facility] CLIA [id number] [address] OF [facility] ALT With P-5'-P [Catalytic activity/Vol] 125 U/L High 7-38 [facility] Comment on above: Order Comment: Speci men Type: BLOOD SPECIMEN [facility] Address: [address] [place] [address] Performed By: #### 5 8410-2 #### [facility] CLIA [id number] [address] Anion gap [Moles/Vol] 10 mmol/L Normal 9-18 [facility] Comment on above: Order Comment: Speci men Type: BLOOD SPECIMEN [facility] Address: [address] [place] [address] Performed By: #### 5 8410-2 #### [facility] CLIA [id number] [address] [place] With P-5'-P [Catalytic activity/Vol] 71 U/L High 13-35 [facility] Comment on above: Order Comment: Speci men Type: BLOOD SPECIMEN [facility] Address: [address] [address] Performed By: #### 5 8410-2 #### [facility] CLIA [id number] [address] Bilirubin [Mass/Vol] 0.4 mg/dL Normal 0.2-1.3 [facility] Comment on above: Order Comment: Speci men Type: BLOOD SPECIMEN [facility] Address: [address] [place] [address] Performed By: #### 5 8410-2 #### [facility] CLIA [id number] [address] [place] Calcium [Mass/Vol] 7.1 mg/dL Low 8.5-10.2 [facility] Comment on above: Order Comment: Speci men Type: BLOOD SPECIMEN [facility] Address: [address] [place] [address] Performed By: #### 5 8410-2 #### [facility] CLIA [id number] [address] [place] Chloride [Moles/Vol] 103 mmol/L Normal 97-105 [facility] Comment on above: Order Comment: Speci men Type: BLOOD SPECIMEN [facility] Address: [address] [place] [address] Performed By: #### 5 8410-2 #### [facility] CLIA [id number] [address] [place] CO2 [Moles/Vol] 24 mmol/L Normal 22-30 [facility] Comment on above: Order Comment: Speci men Type: BLOOD SPECIMEN [facility] Address: [address] [place] [address] Performed By: #### 5 8410-2 #### [facility] CLIA [id number] [address] [place] Creatinine [Mass/Vol] 0.58 mg/dL Normal 0.58-0.96 [facility] Comment on above: Order Comment: Speci men Type: BLOOD SPECIMEN [facility] Address: [address] [place] [address] Performed By: #### 5 8410-2 #### [facility] CLIA [id number] [address] [place] ESTIMATED GLOMERULAR FILTRATION RATE 132 mL/min/1.73m??? Normal >=60 [facility] Comment on above: Order Comment: Speci men Type: BLOOD SPECIMEN [facility] Address: [address] [place], [place] [id number] Result Comment: Majo mated Glomerular Filtration Rate (eGFR) is calculated using the 2020 CKD-EPI creatinine equation. This equation utilizes serum creatinine, sex, and age as parameters. The creatinine assay has traceable calibration to isotope dilution-mass spectrometry. Refer to KDIGO guidelines for clinical interpretation. In patients with unstable renal function, e.g. those with acute kidney injury, the eGFR may not accurately reflect actual GFR. Performed By: #### 5 8410-2 #### [facility] CLIA [id number] [address] [place] [address] [place] Glucose [Mass/Vol] 106 mg/dL High 74-99 [facility] Comment on above: Order Comment: Flor martell Type: BLOOD SPECIMEN [facility] Address: [address] [place], [place] [phone] Result Comment: The [place] [employer] (ADA) provides guidance for cutoff values for fasting glucose and random glucose. The ADA defines fasting as no caloric intake for at least 8 hours. Fasting plasma glucose results between 100 to 125 mg/dL indicate increased risk for diabetes (prediabetes). Fasting plasma glucose results greater than or equal to 126 mg/dL meet the criteria for diagnosis of diabetes. In the absence of unequivocal hyperglycemia, results should be confirmed by repeat testing. In a patient with classic symptoms of hyperglycemia or hyperglycemic crisis, random plasma glucose results greater than or equal to 200 mg/dL meet the criteria for diagnosis of diabetes. Reference: Standards of Medical Care in Diabetes 2016, [place] [employer]. Diabetes Care. 2016.39(Suppl 1). Performed By: #### 5 8410-2 #### [facility] CLIA [id number] 1 [place] [address] [place] Potassium [Moles/Vol] 4.0 mmol/L Normal 3.7-5.1 [facility] Comment on above: Order Comment: Flor martell Type: BLOOD SPECIMEN [facility] Facility: [facility] Address: [address] [place], [place] [phone] Performed By: #### 5 8410-2 #### [facility] CLIA [id number] [address] [place] Protein [Mass/Vol] 5.3 g/dL Low 6.3-8.0 [facility] Comment on above: Order Comment: Speci men Type: BLOOD SPECIMEN Ordering Facility: [facility] Address: [address] [place] [address] Performed By: #### 5 8410-2 #### [facility] CLIA [id number] [address] [place] Sodium [Moles/Vol] 137 mmol/L Normal 136-144 [facility] Comment on above: Order Comment: Speci men Type: BLOOD SPECIMEN [facility]ing Facility: [facility] Address: [address] [place] [address] Performed By: #### 5 8410-2 #### [facility] CLIA [id number] [address] [place] Urea nitrogen [Mass/Vol] 8 mg/dL Normal 7-21 [facility] Comment on above: Order Comment: Speci men Type: BLOOD SPECIMEN [facility] Address: [address] [place] [address] Performed By: #### 5 8410-2 #### [facility] CLIA [id number] [address] [place] ANES POSTPROC EVALon 023 ANES POSTPROC EVAL HNO ID: [id number] Author: Pedro Pan APRN.[employer]GE [employer] WORKER Service: Anesthesiology Author Type: Nurse Cleat Blanker Type: Anesthesia Postprocedure Evaluation Filed: 02/07/2023 5:30 AM Note Text: POST ANESTHESIA EVALUATION NOTE : 2000 Procedure Summary Date: 02/07/23 Room / Location: [place] [address] [facility] Anesthesia Start: 52 Anesthesia Stop: 243 Procedure: SECTION Diagnosis: (Maternal Medical Condition) Surgeons: Areli Whitehead MD Responsible Provider: Mirta Lange MD Anesthesia Type: general ASA Status: 3 - Emergent Anesthesia Type: general Airway Type: ETT Last Vitals Vitals Value Taken Time BP 122/82 02/07/23 0516 Temp 02/07/23 0529 Pulse 79 02/07/23 0524 Resp 12 02/07/23 0454 SpO2 98 % 02/07/23 0524 Vitals shown include unvalidated device data. John, Girl Nestor Curtis [[id number]] Baby Delivery: 02/07/2023 0111 Post Anesthesia Patient Status Neurological Status: aware and responsive. Pulmonary Status: breathing comfortably on room air Airway Control: returned to baseline unsupported. Cardiovascular Status: stable. Pain Management: clinically adequate Postoperative Hydration: acceptable. Post Operative Nausea/Vomiting Status: no significant post operative nausea or vomiting Recommendation: continue current plan of care. 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 Tracheostomy tube not present Mallampati: II. Neck ROM: full ROM without neurological symptoms. Mouth opening: adequate. Short neck: no. Thick neck: no DENTAL Normal dental observations. Dental findings: teeth intact. II - ANESTHESIA PLAN ASA Score: 3; emergent. Anesthetic Plan: general Airway type: ETT The patient is not a current smoker. NPO Status: adequate Anesthetic plan additional comments: General anesthesia discussed with pt and all questions answered. Pt agrees to general anesthesia . Beta Raul Administration of chronic beta raul medication not planned. Monitoring Plan Monitoring plan: standard ASA. Post Procedure Analgesic Plan Postoperative analgesic plan: parenteral or oral opioids. Informed Consent Anesthetic risks, benefits, alternatives, personnel and consent discussed: yes. Patient / Responsible Green Party agrees to proceed: yes Patient / Surrogate agrees to blood products: Yes DNR status not reviewed with patient and/or family prior to surgery. Significant changes in the patient condition since the History and Physical, not otherwise documented in primary service progress note: no. Potential Anesthesia issues that may suggest increased risk of complications or contraindication to planned procedure: none. Discussed the possibility of lip / dental damage: no EPIC CHART REVIEW: ACTIVE PROBLEM LIST History of Anxiety Elevated Glucose Rh Negative State in Antepartum Period Thrombocytopenia Affecting (Hcc) Hellp Syndrome, Antepartum PAST MEDICAL HISTORY Diagnosis Date - Acne 08/07/2013 - Anxiety 08/07/2012 - anxiety - Back pain 08/07/2014 Resolved - breast mass 07/2022 Left - Constipation 08/07/2008 - Headache 08/07/2012 - Heart murmur 05/07/2013 - HELLP syndrome, antepartum 02/07/2023 - Knee pain - Migraine - Thumb fracture left age 11 yrs PAST SURGICAL HISTORY Procedure Laterality Date - PAST SURGICAL HISTORY OF 12/15/2020 Incision and Drainage, Pilonidal Cyst FAMILY HISTORY Problem Relation Age of Onset - Seizures Father - Diabetes Maternal Grandfather - Hypertension Maternal Grandfather - Lipids Maternal Grandfather - No Known Problems Paternal Grandmother - Cancer Paternal Grandfather - Breast Cancer Other - Breast Cancer Other 40 Social History Tobacco Use - Smoking status: Never - Smokeless tobacco: Never Vaping Use - Vaping Use: Never used Substance Use Topics - Alcohol use: Never - Drug use: Never ondansetron (ZOFRAN) 4 mg tablet, Take 1 tablet by mouth every 8 hours as needed for nausea/vomiting., Disp: 30 tablet, Rfl: 0, Unknown cyclobenzaprine (FLEXERIL) 5 mg tablet, Take 1 tablet by mouth three times daily., Disp: 30 tablet, Rfl: 0, Unknown aspirin, enteric coated (ASPIRIN, ENTERIC COATED) 81 mg EC tablet, Take 2 tablets by mouth once daily. (Patient not taking: No sig reported), Disp: 60 tablet, Rfl: 5, Unknown prental multivitamin 27 mg iron- 800 mcg tablet, Take 1 tablet by mouth once daily., Disp: , Rfl: , Unknown Inpatient medications reviewed in [facility] I have interviewed and examined the patient. I have reviewed the medical record and/or the pre-anesthesia evaluation, pertinent labs, and test results. This contains updated information obtained within 48 hours of Surgery/Procedure. SIGNATURE: Pedro Pan APRN.CRNA PATIENT NAME: Nestor Lopez DATE: February 07, 2023 TIME: 12:20 AM : 2000 Normal [facility] ANTIBODY ID PATIENTon 2022 ANTIBODY IDENTIFIED Passively acq Anti-D Normal [facility] Comment on above: Order Comment: Speci men Type: BLOOD SPECIMEN [facility] Address: [address] [place] [address] Performed By: #### 5 8410-2 #### [facility] CLIA [id number] [address] [place] Ammonia Plas-sCncon 02-08-20 23 Ammonia (P) [Moles/Vol] 15 umol/L Normal 11-51 [facility] Comment on above: Order Comment: Speci men Type: BLOOD SPECIMEN [facility] Address: [address] [place] [address] Performed By: #### 2 4323-8, 3084-1, 29770-8 #### [facility] CLIA [id number] 1 [place] [address] [place] Basic metabolic 2000 panelon 02-07-2023 Anion gap [Moles/Vol] 11 mmol/L Normal 9-18 [facility] Comment on above: Order Comment: Speci men Type: BLOOD SPECIMEN [facility] Address: [address] [place] [address] Performed By: #### 2 4323-8, 3084-1, 70223-9 #### [facility] CLIA [id number] [address] STATES OF [facility] Calcium [Mass/Vol] 7.1 mg/dL Low 8.5-10.2 [facility] Comment on above: Order Comment: Speci men Type: BLOOD SPECIMEN [facility] Address: [address] [place] [address] Performed By: #### 2 4323-8, 3084-1, 57938-3 #### [facility] CLIA [id number] [address] [place] Chloride [Moles/Vol] 102 mmol/L Normal 97-105 [facility] Comment on above: Order Comment: Speci men Type: BLOOD SPECIMEN [facility] Address: [address] [place] [address] Performed By: #### 2 4323-8, 3084-1, 32618-0 #### [facility] CLIA [id number] [address] OF [facility] CO2 [Moles/Vol] 21 mmol/L Low 22-30 [facility] Comment on above: Order Comment: Speci men Type: BLOOD SPECIMEN [facility] Address: [address] [place] [address] Performed By: #### 2 4323-8, 3084-1, 19803-2 #### [facility] CLIA [id number] [address] [place] [address] Creatinine [Mass/Vol] 0.49 mg/dL Low 0.58-0.96 [facility] Comment on above: Order Comment: Specbob men Type: BLOOD SPECIMEN [facility] Address: [address] [place] [address] Performed By: #### 2 4323-8, 3084-1, 45889-6 #### [facility] CLIA [id number] [address] [place] [address] ESTIMATED GLOMERULAR FILTRATION RATE 138 mL/min/1.73m??? Normal >=60 [facility] Comment on above: Order Comment: Speci men Type: BLOOD SPECIMEN [facility] Address: [address] [place] [address] Result Comment: Majo mated Glomerular Filtration Rate (eGFR) is calculated using the 2020 CKD-EPI creatinine equation. This equation utilizes serum creatinine, sex, and age as parameters. The creatinine assay has traceable calibration to isotope dilution-mass spectrometry. Refer to KDIGO guidelines for clinical interpretation. In patients with unstable renal function, e.g. those with acute kidney injury, the eGFR may not accurately reflect actual GFR. Performed By: #### 2 4323-8, 3084-1, 38648-3 #### [facility] CLIA [id number] 1 [place] [address] [place] Glucose [Mass/Vol] 111 mg/dL High 74-99 [facility] Comment on above: Order Comment: Flor martell Type: BLOOD SPECIMEN [facility]ing [facility] Address: [address] [place] [id number] Result Comment: The [place] [employer] (ADA) provides guidance for cutoff values for fasting glucose and random glucose. The ADA defines fasting as no caloric intake for at least 8 hours. Fasting plasma glucose results between 100 to 125 mg/dL indicate increased risk for diabetes (prediabetes). Fasting plasma glucose results greater than or equal to 126 mg/dL meet the criteria for diagnosis of diabetes. In the absence of unequivocal hyperglycemia, results should be confirmed by repeat testing. In a patient with classic symptoms of hyperglycemia or hyperglycemic crisis, random plasma glucose results greater than or equal to 200 mg/dL meet the criteria for diagnosis of diabetes. Reference: Standards of Medical Care in Diabetes 2016, [place] [employer]. Diabetes Care. 2016.39(Suppl 1). Performed By: #### 2 4323-8, 3084-1, 54211-7 #### [facility] CLIA [id number] 1 [place] [address] [place] Potassium [Moles/Vol] 3.9 mmol/L Normal 3.7-5.1 [facility] Comment on above: Order Comment: Flor martell Type: BLOOD SPECIMEN [facility] Address: [address] [place] [address] Performed By: #### 2 4323-8, 3084-1, 72878-8 #### [facility] CLIA [id number] 1 [place] [address] [place] Sodium [Moles/Vol] 134 mmol/L Low 136-144 [facility] Comment on above: Order Comment: Flor martell Type: BLOOD SPECIMEN [facility] Address: [address] [place] [phone] Performed By: #### 2 4323-8, 3084-1, 43722-6 #### [facility] CLIA [id number] [address] Urea nitrogen [Mass/Vol] 7 mg/dL Normal 7-21 [facility] Comment on above: Order Comment: Speci men Type: BLOOD SPECIMEN [facility] Address: [address] [place] [address] Performed By: #### 2 4323-8, 3084-1, 04244-6 #### [facility] CLIA [id number] [address] Bilirub Conj SerPl-mCncon Bilirubin.conjugated [Mass/Vol] 0.5 mg/dL High <0.2 [facility] Comment on above: Order Comment: Speci men Type: BLOOD SPECIMEN [facility] Address: [address] [place] [address] Performed By: #### 2 4323-8, 3084-1, 80176-3 #### [facility] CLIA [id number] [address] CBC panel Auto (Bld)on 02-07 Erythrocyte distribution width (RBC) [Ratio] 14.4 % Normal 11.5-15.0 [facility] Comment on above: Order Comment: Speci men Type: BLOOD SPECIMEN [facility] Address: [address] [place] [address] Performed By: #### 5 8410-2 #### [facility] CLIA [id number] [address] Hematocrit (Bld) [Volume fraction] 25.6 % Low 36.0-46.0 [facility] Comment on above: Order Comment: Speci men Type: BLOOD SPECIMEN [facility] Address: [address] [place] [address] Performed By: #### 5 8410-2 #### [facility] CLIA [id number] [address] OF [facility] Hemoglobin (Bld) [Mass/Vol] 8.8 g/dL Low 11.5-15.5 [facility] Comment on above: Order Comment: Speci men Type: BLOOD SPECIMEN [facility] Address: [address] [place] [address] Performed By: #### 5 8410-2 #### [facility] CLIA [id number] [address] MCH (RBC) [Entitic mass] 27.5 pg Normal 26.0-34.0 [facility] Comment on above: Order Comment: Speci men Type: BLOOD SPECIMEN [facility] Address: [address] [place] [address] Performed By: #### 5 8410-2 #### [facility] CLIA [id number] [address] MCHC (RBC) [Mass/Vol] 34.4 g/dL Normal 30.5-36.0 [facility] Comment on above: Order Comment: Speci men Type: BLOOD SPECIMEN [facility] Address: [address] [place] [address] Performed By: #### 5 8410-2 #### [facility] CLIA [id number] [address] MCV (RBC) [Entitic vol] 80.0 fL Normal 80.0-100.0 [facility] Comment on above: Order Comment: Speci men Type: BLOOD SPECIMEN [facility] Address: [address] [place] [address] Performed By: #### 5 8410-2 #### [facility] CLIA [id number] [address] Nucleated RBC (Bld) [#/Vol] 10*3/uL Normal <0.01 [facility] Comment on above: Order Comment: Speci men Type: BLOOD SPECIMEN [facility] Address: [address] [place] [address] Performed By: #### 5 8410-2 #### [facility] CLIA [id number] [address] Platelet mean volume (Bld) [Entitic vol] 11.3 fL Normal 9.0-12.7 [facility] Comment on above: Order Comment: Speci men Type: BLOOD SPECIMEN [facility] Address: [address] [place] [address] Performed By: #### 5 8410-2 #### [facility] CLIA [id number] [address] Platelets (Bld) [#/Vol] 120 10*3/uL Low 150-400 [facility] Comment on above: Order Comment: Speci men Type: BLOOD SPECIMEN [facility] Address: [address] [place] [address] Result Comment: No c lot detected. Performed By: #### 5 8410-2 #### [facility] CLIA [id number] [address] RBC (Bld) [#/Vol] 3.20 10*6/uL Low 3.90-5.20 [facility] Comment on above: Order Comment: Speci men Type: BLOOD SPECIMEN [facility] Address: [address] [place] [address] Performed By: #### 5 8410-2 #### [facility] CLIA [id number] [address] OF [facility] WBC (Bld) [#/Vol] 17.18 10*3/uL High 3.70-11.00 [facility] Comment on above: Order Comment: Speci men Type: BLOOD SPECIMEN [facility] Address: [address] [place] [address] Performed By: #### 5 8410-2 #### [facility] CLIA [id number] [address] Erythrocyte distribution width (RBC) [Ratio] 14.4 % Normal 11.5-15.0 [facility] Comment on above: Order Comment: Speci men Type: BLOOD SPECIMEN [facility] Address: [address] [place] [address] Performed By: #### 5 8410-2 #### [facility] CLIA [id number] [address] Hematocrit (Bld) [Volume fraction] 24.9 % Low 36.0-46.0 [facility] Comment on above: Order Comment: Speci men Type: BLOOD SPECIMEN [facility] Address: [address] [place] [address] Performed By: #### 5 8410-2 #### [facility] CLIA [id number] [address] Hemoglobin (Bld) [Mass/Vol] 8.5 g/dL Low 11.5-15.5 [facility] Comment on above: Order Comment: Speci men Type: BLOOD SPECIMEN [facility] Address: [address] [place] [address] Performed By: #### 5 8410-2 #### [facility] CLIA [id number] [address] MCH (RBC) [Entitic mass] 27.7 pg Normal 26.0-34.0 [facility] Comment on above: Order Comment: Speci men Type: BLOOD SPECIMEN [facility] Address: [address] [place] [place] [address] Performed By: #### 5 8410-2 #### [facility] CLIA [id number] [address] MCHC (RBC) [Mass/Vol] 34.1 g/dL Normal 30.5-36.0 [facility] Comment on above: Order Comment: Speci men Type: BLOOD SPECIMEN [facility] Address: [address] [place] [address] Performed By: #### 5 8410-2 #### [facility] CLIA [id number] [address] MCV (RBC) [Entitic vol] 81.1 fL Normal 80.0-100.0 [facility] Comment on above: Order Comment: Speci men Type: BLOOD SPECIMEN [facility] Address: [address] [place] [address] Performed By: #### 5 8410-2 #### [facility] CLIA [id number] [address] Nucleated RBC (Bld) [#/Vol] 10*3/uL Normal <0.01 [facility] Comment on above: Order Comment: Speci men Type: BLOOD SPECIMEN [facility] Address: [address] [place] [address] Performed By: #### 5 8410-2 #### [facility] CLIA [id number] [address] Platelet mean volume (Bld) [Entitic vol] 11.9 fL Normal 9.0-12.7 [facility] Comment on above: Order Comment: Speci men Type: BLOOD SPECIMEN [facility] Address: [address] [place] [address] Performed By: #### 5 8410-2 #### [facility] CLIA [id number] [address] Platelets (Bld) [#/Vol] 74 10*3/uL Low 150-400 [facility] Comment on above: Order Comment: Speci men Type: BLOOD SPECIMEN [facility] Address: [address] [place] [address] Result Comment: Plat elet count confirmed by manual review of peripheral blood smear. No clot detected. Performed By: #### 5 8410-2 #### [facility] CLIA [id number] [address] RBC (Bld) [#/Vol] 3.07 10*6/uL Low 3.90-5.20 [facility] Comment on above: Order Comment: Speci men Type: BLOOD SPECIMEN [facility] Address: [address] [place] [address] Performed By: #### 5 8410-2 #### [facility] CLIA [id number] [address] STATES OF [facility] WBC (Bld) [#/Vol] 14.79 10*3/uL High 3.70-11.00 [facility] Comment on above: Order Comment: Speci men Type: BLOOD SPECIMEN [facility] Address: [address] [place] [address] Performed By: #### 5 8410-2 #### [facility] CLIA [id number] [address] [place] [address] [place] Erythrocyte distribution width (RBC) [Ratio] 14.4 % Normal 11.5-15.0 [facility] Comment on above: Order Comment: Speci men Type: BLOOD SPECIMEN [facility] Address: [address] [place] [address] Performed By: #### 2 4323-8, 3084-1, 19889-1 #### [facility] CLIA [id number] [address] [place] [address] [place] [facility] Hematocrit (Bld) [Volume fraction] 26.3 % Low 36.0-46.0 [facility] Comment on above: Order Comment: Speci men Type: BLOOD SPECIMEN [facility] Address: [address] [place] [address] Performed By: #### 2 4323-8, 3084-1, 53726-8 #### [facility] CLIA [id number] [address] OF [facility] Hemoglobin (Bld) [Mass/Vol] 8.7 g/dL Low 11.5-15.5 [facility] Comment on above: Order Comment: Speci men Type: BLOOD SPECIMEN [facility] Address: [address] [address] Performed By: #### 2 4323-8, 3084-1, 32837-9 #### [facility] CLIA [id number] [address] MCH (RBC) [Entitic mass] 27.2 pg Normal 26.0-34.0 [facility] Comment on above: Order Comment: Speci men Type: BLOOD SPECIMEN [facility] Address: [address] [address] Performed By: #### 2 4323-8, 4-1, 27483-9 #### [facility] CLIA [id number] [address] MCHC (RBC) [Mass/Vol] 33.1 g/dL Normal 30.5-36.0 [facility] Comment on above: Order Comment: Speci men Type: BLOOD SPECIMEN [facility] Address: [address] [place] [address] Performed By: #### 2 4323-8, 3083-1, 38735-7 #### [facility] CLIA [id number] [address] [place] [address] MCV (RBC) [Entitic vol] 82.2 fL Normal 80.0-100.0 [facility] Comment on above: Order Comment: Speci men Type: BLOOD SPECIMEN [facility] Address: [address] [address] Performed By: #### 2 4323-8, 3083-1, 43438-0 #### [facility] CLIA [id number] [address] Nucleated RBC (Bld) [#/Vol] 10*3/uL Normal <0.01 [facility] Comment on above: Order Comment: Speci men Type: BLOOD SPECIMEN [facility] Address: [address] [address] Performed By: #### 2 4323-8, 4-1, 42880-3 #### [facility] CLIA [id number] [address] [place] [address] [place] Platelet mean volume (Bld) [Entitic vol] 11.5 fL Normal 9.0-12.7 [facility] Comment on above: Order Comment: Speci men Type: BLOOD SPECIMEN [facility] Facility[facility] Address: [address] [place] [address] Performed By: #### 2 4323-8, 3083-, 08700-9 #### [facility] CLIA [id number] [address] [place] Platelets (Bld) [#/Vol] 59 10*3/uL Low 150-400 [facility] Comment on above: Order Comment: Speci men Type: BLOOD SPECIMEN Ordering Facility: [facility] Address: [address] [place] [address] Result Comment: No c lot detected. Performed By: #### 2 4323-8, 3083-, 90640-8 #### [facility] CLIA [id number] 1 [place] [address] [place] RBC (Bld) [#/Vol] 3.20 10*6/uL Low 3.90-5.20 [facility] Comment on above: Order Comment: Speci men Type: BLOOD SPECIMEN [facility]ing Facility: [facility] Address: [address] [place] [address] Performed By: #### 2 4323-8, 3083-08, 23198-5 #### [facility] CLIA [id number] [address] [place] WBC (Bld) [#/Vol] 12.64 10*3/uL High 3.70-11.00 [facility] Comment on above: Order Comment: Speci men Type: BLOOD SPECIMEN [facility] Address: [address] [place] [address] Performed By: #### 2 4323-8, 3083-, 62674-0 #### [facility] CLIA [id number] [address] Erythrocyte distribution width (RBC) [Ratio] 14.4 % Normal 11.5-15.0 [facility] Comment on above: Order Comment: Speci men Type: BLOOD SPECIMEN [facility] Address: [address] [place] [address] Performed By: #### 5 8410-2 #### [facility] CLIA [id number] [address] Hematocrit (Bld) [Volume fraction] 30.5 % Low 36.0-46.0 [facility] Comment on above: Order Comment: Speci men Type: BLOOD SPECIMEN [facility] Address: [address] [place] [address] Performed By: #### 5 8410-2 #### [facility] CLIA [id number] [address] Hemoglobin (Bld) [Mass/Vol] 10.4 g/dL Low 11.5-15.5 [facility] Comment on above: Order Comment: Speci men Type: BLOOD SPECIMEN [facility] Address: [address] [place] [address] Performed By: #### 5 8410-2 #### [facility] CLIA [id number] [address] MCH (RBC) [Entitic mass] 27.4 pg Normal 26.0-34.0 [facility] Comment on above: Order Comment: Speci men Type: BLOOD SPECIMEN [facility] Address: [address] [place] [address] Performed By: #### 5 8410-2 #### [facility] CLIA [id number] [address] MCHC (RBC) [Mass/Vol] 34.1 g/dL Normal 30.5-36.0 [facility] Comment on above: Order Comment: Speci men Type: BLOOD SPECIMEN Ordering Facility: [facility] Address: [address] [place] [address] Performed By: #### 5 8410-2 #### [facility] CLIA [id number] [address] MCV (RBC) [Entitic vol] 80.5 fL Normal 80.0-100.0 [facility] Comment on above: Order Comment: Speci men Type: BLOOD SPECIMEN Ordering Facility: [facility] Address: [address] [address] Performed By: #### 5 8410-2 #### [facility] CLIA [id number] [address] Nucleated RBC (Bld) [#/Vol] 10*3/uL Normal <0.01 [facility] Comment on above: Order Comment: Speci men Type: BLOOD SPECIMEN [facility] Address: [address] [place] [address] Performed By: #### 5 8410-2 #### [facility] CLIA [id number] [address] Platelet mean volume (Bld) [Entitic vol] 10.9 fL Normal 9.0-12.7 [facility] Comment on above: Order Comment: Speci men Type: BLOOD SPECIMEN [facility] Address: [address] [place] [address] Performed By: #### 5 8410-2 #### [facility] CLIA [id number] [address] Platelets (Bld) [#/Vol] 40 10*3/uL Low 150-400 [facility] Comment on above: Order Comment: Speci men Type: BLOOD SPECIMEN [facility] Address: [address] [place] [address] Result Comment: No c lot detected. Performed By: #### 5 8410-2 #### [facility] CLIA [id number] [address] [place] RBC (Bld) [#/Vol] 3.79 10*6/uL Low 3.90-5.20 [facility] Comment on above: Order Comment: Flor martell Type: BLOOD SPECIMEN [facility] Facility[facility] Address: [address] [place] [address] Performed By: #### 5 8410-2 #### [facility] CLIA [id number] [address] [facility] WBC (Bld) [#/Vol] 13.05 10*3/uL High 3.70-11.00 [facility] Comment on above: Order Comment: Flor martell Type: BLOOD SPECIMEN [facility] Address: [address] [id number] Performed By: #### 5 8410-2 #### [facility] CLIA [id number] [address] CONSULTon 02-07-2023 CONSULT HNO ID: [id number] Author: Kimberly Rueda MD Service: Obstetrics Author Type: Resident Type: Consults Filed: 02/07/2023 8:51 AM Note Text: Attestation signed by Jean Hernandez MD at 02/07/2023 2:13 PM Attending Attestation I evaluated the patient and personally participated in the valentine components. I agree with the resident's findings and plan as documented and have discussed the case and management of the patient's care with the resident. I have reviewed and edited the above note to reflect our collaborative assessment and recommendations. 22yo POD#0 from primary delivery under GETA at 29w1d in the setting of HELLP syndrome (thrombocytopenia, elevated LFTs), on magnesium. Now without signs/symptoms of worsening preeclampsia. BP normal to mild range. Labs improving. Hyponatremia noted this morning was secondary to being drawn off her IV line, repeat was normal. Given improving LFTs okay to start tylenol for pain management. Will consider beginning LMWH tomorrow if plt count continues to improve, continue SCDs, ambulation once magnesium discontinued. We discussed that people with a history of HELLP/preeclampsia are at higher risk of developing preeclampsia in future pregnancies. We recommend starting low dose aspirin (81 mg) at 12-16 weeks in a future to reduce that risk.Women with hypertensive disorders of are at increased risk of cardiometabolic disease long-term including hypertension, diabetes, coronary artery disease, heart failure, and stroke. We recommend follow up with primary care provider/marine fire fighter in 4-6 weeks to discuss ways to reduce risk of cardiovascular disease. Jean Hernandez MD February 07, 2023 2:05 PM MATERNAL MEDICINE HISTORY AND PHYSICAL SERVICE DATE: February 07, 2023 SERVICE TIME: 7:43 AM Subjective Patient's stated reason for arrival: CHIEF COMPLAINT: HELLP HISTORY OF THE PRESENT ILLNESS: The patient is a 22 year old female, , who is at 29w1d with an JAX of 04/24/2023, by Ultrasound dating method. Patient presented as a transfer from [facility] where she was found to have elevated liver enzymes and low platelets in the setting of a week of worsening abdominal pain. She received 2U of platelets and was delivered via low transverse section this AM under general anesthesia. [facility] was consulted for input on pain management, hyponatremia, and lovenox management. Pt was evaluated this AM in the setting of a drop in serum sodium from 133 to 120. She denied confusion, shortness of breath, chest pain, or abdominal pain. She endorsed swelling in her hands starting this AM. She has not yet ambulated following surgery. She is on magnesium in water, a fluid restriction, and pitocin. HISTORY REVIEW PAST MEDICAL HISTORY Diagnosis Date Acne 08/07/2013 Anxiety 08/07/2012 anxiety Back pain 08/07/2014 Resolved breast mass 07/2022 Left Constipation 08/07/2008 Headache 08/07/2012 Heart murmur 05/07/2013 HELLP syndrome, antepartum 02/07/2023 Knee pain Migraine Thumb fracture left age 11 yrs PAST SURGICAL HISTORY Procedure Laterality Date PAST SURGICAL HISTORY OF 12/15/2020 Incision and Drainage, Pilonidal Cyst FAMILY HISTORY Problem Relation Age of Onset Seizures Father Diabetes Maternal Grandfather Hypertension Maternal Grandfather Lipids Maternal Grandfather No Known Problems Paternal Grandmother Cancer Paternal Grandfather Breast Cancer Other Breast Cancer Other 40 Social History Tobacco Use Smoking status: Never Smokeless tobacco: Never Vaping Use Vaping Use: Never used Substance Use Topics Alcohol use: Never Drug use: Never Obstetric History T0 L1 SAB0 IAB0 Ectopic0 Multiple0 Live Births1 Name of Baby 1: SHALINI LOPEZ Date: 02/07/23 GA: 29w1d Delivery: , Low Transverse Apgar1: 1 Apgar5: 2 Living: Living Active Non-Hospital Problems Diagnosis Date Noted Prematurity 02/07/2023 Overview Note: NICU consulted On Magnesium S/p Betamethasone x1 CEFM prior to delivery Elevated glucose 01/30/2023 Overview Note: 02/03/23- 3 hour normal. Shea Dykes APRN.CNM 01/30/23- Elevated GCT, 3 hour wnl ALLERGIES Allergen Reactions Seasonal Allergies Other: See Comments Runny nose, sneezing, itching in eyes. Prior to Admission Medications Prescriptions Last Dose Informant Patient Reported? Taking? aspirin, enteric coated (ASPIRIN, ENTERIC COATED) 81 mg EC tablet Unknown No No Sig: Take 2 tablets by mouth once daily. Patient not taking: No sig reported cyclobenzaprine (FLEXERIL) 5 mg tablet Unknown No No Sig: Take 1 tablet by mouth three times daily. ondansetron (ZOFRAN) 4 mg tablet Unknown No No Sig: Take 1 tablet by mo (more content not included)... Normal [facility] CONSULT HNO ID: [id number] Author: Jorge Elliott MD Service: Hospital Medicine Author Type: Resident Type: Consults Filed: 02/07/2023 9:16 AM Note Text: Attestation signed by Reji Del Rio MD at 02/07/2023 5:11 PM I saw and evaluated the patient. Discussed with the resident and agree with resident's findings and plan as documented in the resident's note. [facility] [place] CONSULT NOTE PATIENT NAME: Nestor Lopez ADMITTED FOR: DATE: 02/06/2023 Subjective HPI Ms. Nestor Lopez is a 22 year old female with no significant PMH who was recently transferred from [facility] wherein she was found to have elevated liver enzymes, and low platelets. She was diagnosed with HELLP syndrome, and underwent C section on 02/07/23. Post op, her sodium values dropped from 133 to 120, and hence house medicine was consulted for hyponatremia. She received 10 units of oxytocin pre op. Given her HELLP diagnosis, she was also started on magnesium sulfate 40 g infusion in 1L of LR. On bedside exam, the patient was Aox3, HDS, and on RA. She was accompanied by her parents bedside. She said she never had any issues with her sodium numbers in the past. Pre , a week prior to the current admission, she said she had increased frequency of emesis due to which her PO intake was low but in general, she had adequate PO intake prior to that. She was not on any medications apart from pre vitamins. She currently denied any dizziness, diaphoresis, palpitation, tremors, chest pain, sob, or bowel/bladder abnormalities. Review of Systems Constitutional: Negative. HENT: Negative. Eyes: Negative. Respiratory: Negative. Cardiovascular: Negative. Gastrointestinal: Negative. Genitourinary: Negative. Musculoskeletal: Negative. Skin: Negative. Neurological: Negative. PAST MEDICAL HISTORY Diagnosis Date Acne 08/07/2013 Anxiety 08/07/2012 anxiety Back pain 08/07/2014 Resolved breast mass 07/2022 Left Constipation 08/07/2008 Headache 08/07/2012 Heart murmur 05/07/2013 HELLP syndrome, antepartum 02/07/2023 Knee pain Migraine Thumb fracture left age 11 yrs PAST SURGICAL HISTORY Procedure Laterality Date PAST SURGICAL HISTORY OF 12/15/2020 Incision and Drainage, Pilonidal Cyst FAMILY HISTORY Problem Relation Age of Onset Seizures Father Diabetes Maternal Grandfather Hypertension Maternal Grandfather Lipids Maternal Grandfather No Known Problems Paternal Grandmother Cancer Paternal Grandfather Breast Cancer Other Breast Cancer Other 40 Social History Tobacco Use Smoking status: Never Smokeless tobacco: Never Vaping Use Vaping Use: Never used Substance Use Topics Alcohol use: Never Drug use: Never No current facility-administered medications on file prior to encounter. Current Outpatient Medications on File Prior to Encounter Medication Sig ondansetron (ZOFRAN) 4 mg tablet Take 1 tablet by mouth every 8 hours as needed for nausea/vomiting. cyclobenzaprine (FLEXERIL) 5 mg tablet Take 1 tablet by mouth three times daily. aspirin, enteric coated (ASPIRIN, ENTERIC COATED) 81 mg EC tablet Take 2 tablets by mouth once daily. (Patient not taking: No sig reported) prental multivitamin 27 mg iron- 800 mcg tablet Take 1 tablet by mouth once daily. Objective OBJECTIVE BP 141/84 Pulse 112 Temp 36.9 ?C (98.4 ?F) Resp 16 LMP 07/13/2022 (Exact Date) SpO2 97% Unknown Temp (24hrs), Av.9 ?C (98.4 ?F), Min:36.9 ?C (98.4 ?F), Max:36.9 ?C (98.4 ?F) There is no height or weight on file to calculate BMI., No results found for: HBA1C Intake/Output Summary (Last 24 hours) at 02/07/2023 0740 Last data filed at 02/07/2023 0713 Gross per 24 hour Intake 1548 ml Output 1077 ml Net 471 ml Physical Exam Constitutional: Appearance: Normal appearance. She is normal weight. HENT: Mouth/Throat: Mouth: Mucous membranes are moist. Pharynx: Oropharynx is clear. Eyes: Conjunctiva/sclera: Conjunctivae normal. Pupils: Pupils are equal, round, and reactive to light. Cardiovascular: Rate and Rhythm: Normal rate and regular rhythm. Pulses: Normal pulses. Heart sounds: Normal heart sounds. Pulmonary: Effort: Pulmonary effort is normal. Breath sounds: Normal breath sounds. Abdominal: General: Abdomen is flat. Bowel sounds are normal. Musculoskeletal: Right lower leg: No edema. Left lower leg: No edema. Skin: General: Skin is warm. Capillary Refill: Capillary refill takes 2 to 3 seconds. Neurological: General: No focal deficit present. Mental Status: She is alert and oriented to person, place, and time. Mental status is at baseline. No results found for: LVEF LABORATORY: CBC: Recent Labs 02/07/23 0555 02/06/232 WBC 12.64* 13.05* HB 8.7* 10.4* HCT 2 (more content not included)... Normal [facility] CONSULT HNO ID: [id number] Author: Valentine Webster APRN.CNP Service: Neonatology Author Type: Nurse Practitioner Type: Consults Filed: 02/07/2023 12:23 AM Note Text: NEONATOLOGY CONSULT SERVICE DATE: 02/07/2023 Admission Date: 02/06/2023 SERVICE TIME: 2330 Date of : 2000 Age: [age] year old Sex: female Primary Care Physician: No primary care provider on file. Consulting Neonatology MICHELLE: Valentine Webster APRN.GASKET SUPERVISOR Subjective Consultation for this evaluation was requested by Dr. Whitehead. Reason for consultation: 29 week mother who presented with significant symtpoms of HELLP and may require imminent delivery - awaiting lab results Recommendations will be communicated back to the requesting physician by way of shared medical record or letter. Objective MATERNAL HISTORY: Mother is a 22 year old female, , who is at 29w1d with an JAX of 04/24/2023, by Ultrasound dating method. LMP: Patient's last menstrual period was 07/13/2022 (exact date). Maternal Hospital Problems: ACTIVE PROBLEM LIST History of Anxiety Elevated Glucose Rh Negative State in Antepartum Period Thrombocytopenia Affecting (Hcc) Hellp Syndrome, Antepartum Maternal Meds: No current facility-administered medications on file prior to encounter. Current Outpatient Medications on File Prior to Encounter Medication Sig ondansetron (ZOFRAN) 4 mg tablet Take 1 tablet by mouth every 8 hours as needed for nausea/vomiting. cyclobenzaprine (FLEXERIL) 5 mg tablet Take 1 tablet by mouth three times daily. aspirin, enteric coated (ASPIRIN, ENTERIC COATED) 81 mg EC tablet Take 2 tablets by mouth once daily. (Patient not taking: No sig reported) prental multivitamin 27 mg iron- 800 mcg tablet Take 1 tablet by mouth once daily. Current Facility-Administered Medications Medication Dose Route Frequency lactated ringers iv infusion 125 mL/hr INTRAVENOUS CONTINUOUS lactated ringers 1,000 mL iv bolus 1,000 mL INTRAVENOUS PRN oxytocin 10 Units bolus from bag (PITOCIN) 10 Units INTRAVENOUS ONE TIME oxytocin 30 unit in LR 500 mL iv infusion () (PITOCIN) 2.86 Units/hr INTRAVENOUS ONE TIME ondansetron (PF) 4 mg injection (ZOFRAN) 4 mg INTRAVENOUS q 6 H PRN calcium carbonate 500 mg chewable tab(s) (TUMS) 500 mg ORAL BID PRN sodium citrate-citric acid 500-334 mg/5 mL 30 mL oral liquid (BICITRA) 30 mL ORAL Pre-Op PRN metoclopramide HCl 10 mg injection (REGLAN) 10 mg INTRAVENOUS Pre-Op PRN tranexamic acid (CYKLOKAPRON) in NaCl 0.7% 1,000 mg 100 mL 1,000 mg INTRAVENOUS Pre-Op PRN NaCl 0.9% iv flush bag 20 mL INTRAVENOUS PRN oxytocin 10 Units injection (PITOCIN) 10 Units INTRAMUSCULAR PRN ceFAZolin iv piggyback 2 g in D5W (iso-osmotic) 100 mL (ANCEF) 2 g INTRAVENOUS Pre-Op PRN azithromycin 500 mg in D5W 250 mL Vial-Bag (ZITHROMAX) 500 mg INTRAVENOUS Pre-Op PRN complications: Susptected HELLP syndrome The following was discussed with mother and father + 6 family members GENERAL: Neonatology presence and role at delivery: Yes Possible need for resuscitation: Yes DNR status: Full resuscitation requested Need for admission to NICU: Yes Offered tour of NICU: No Discharge criteria: Yes Survival odds/morbidity AND mortality: Yes RESPIRATORY Risk of RDS/breathing problems: Yes Possible need for respiratory support: Yes CARDIOVASCULAR Discussed Hypotension, potential medical treatment: No Other (e.g. congenital heart disease/PDA): Yes NEUROLOGIC Risk of IVH/Neuro developmental delays: Yes Discussed need for evaluation by Manager Software Development for ROP: Yes Discussed risk for hearing deficit: Yes FEN Mother?s Preference: Breast: Yes. Benefits of breast milk: Yes Bottle: N/A Need for supplemental nutrition and/or IVFs: Yes INFECTION Risk factors for infection- congenital and nosocomial: Yes Need to start antibiotics: N/A HEME Possible need for blood transfusion: N/A. Verbal consent obtained: N/A ACCESS Possible need for UAC/UVC/PICC: Yes. Verbal consent obtained: Yes MISC. Name if Gta, if known: Unknown, please contact patient's primary care physician Possible need for transfer to outside hospital: Yes Possible need for subspecialty evaluation: N/A Additional discussion: N/A Impression/Recommenda tions Assessment: This is a 29 weeks mother who is presenting with suspected HELLP syndrome with potential for imminent delivery. Plan: NICU to be present at delivery if decision made after labs resulted. Call TIEDOWN OPERATOR with questions. Dr. Fox notified of potential delivery - discussed consult with Dr. Whiteehad before and after discussion with family. Physician [id number] total time, including discussion: 40 minutes, more than 50 % of time devoted to coordination of care and/or counseling. SIGNATURE: Valentine Webster APRN.LOGAN PATIENT NAME: Nestor Lopez DATE: February 07, 2023 TIME: 12:17 AM Normal [facility] Calcium.ionized [Moles/Vol]o n 02-07-2023 Calcium.ionized (BldV) [Mass/Vol] 1.01 mmol/L Low 1.08-1.30 [facility] Comment on above: Order Comment: Flor martell Type: BLOOD SPECIMEN [facility] Address: [address] [place] [address] Performed By: #### 2 4323-8, 3084-1, 41976-3 #### [facility] CLIA [id number] [address] [place] [address] [place] [facility] Calcium.ionized adjusted to pH 7.4 (Bld) [Moles/Vol] 0.98 mmol/L Low 1.08-1.30 [facility] Comment on above: Order Comment: Flor martell Type: BLOOD SPECIMEN [facility] Address: [address] [place] [address] Performed By: #### 2 4323-8, 3084-1, 83139-0 #### [facility] CLIA [id number] [address] Comprehensive metabolic 2000 panelon 02-07-2023 Albumin [Mass/Vol] 3.1 g/dL Low 3.9-4.9 [facility] Comment on above: Order Comment: Speci men Type: BLOOD SPECIMEN [facility] Address: [address] [place] [address] Performed By: #### 5 8410-2 #### [facility] CLIA [id number] [address] ALP [Catalytic activity/Vol] 74 U/L Normal 34-123 [facility] Comment on above: Order Comment: Speci men Type: BLOOD SPECIMEN [facility] Address: [address] [place] [address] Performed By: #### 5 8410-2 #### [facility] CLIA [id number] [address] ALT With P-5'-P [Catalytic activity/Vol] 131 U/L High 7-38 [facility] Comment on above: Order Comment: Speci men Type: BLOOD SPECIMEN [facility] Address: [address] [place] [address] Performed By: #### 5 8410-2 #### [facility] CLIA [id number] [address] Anion gap [Moles/Vol] 13 mmol/L Normal 9-18 [facility] Comment on above: Order Comment: Speci men Type: BLOOD SPECIMEN [facility] Address: [address] [place] [address] Performed By: #### 5 8410-2 #### [facility] CLIA [id number] [address] AST With P-5'-P [Catalytic activity/Vol] 74 U/L High 13-35 [facility] Comment on above: Order Comment: Speci men Type: BLOOD SPECIMEN [facility] Address: [address] [place] [address] Performed By: #### 5 8410-2 #### [facility] CLIA [id number] [address] [place] Bilirubin [Mass/Vol] 0.5 mg/dL Normal 0.2-1.3 [facility] Comment on above: Order Comment: Speci men Type: BLOOD SPECIMEN [facility] Address: [address] [place] [address] Performed By: #### 5 8410-2 #### [facility] CLIA [id number] [address] [place] Calcium [Mass/Vol] 7.2 mg/dL Low 8.5-10.2 [facility] Comment on above: Order Comment: Speci men Type: BLOOD SPECIMEN [facility] Address: [address] [place] [address] Performed By: #### 5 8410-2 #### [facility] CLIA [id number] [address] [place] Chloride [Moles/Vol] 103 mmol/L Normal 97-105 [facility] Comment on above: Order Comment: Speci men Type: BLOOD SPECIMEN [facility] Address: [address] [place] [address] Performed By: #### 5 8410-2 #### [facility] CLIA [id number] [address] [place] [address] [place] CO2 [Moles/Vol] 21 mmol/L Low 22-30 [facility] Comment on above: Order Comment: Speci men Type: BLOOD SPECIMEN [facility] Address: [address] [place] [address] Performed By: #### 5 8410-2 #### [facility] CLIA [id number] [address] [place] Creatinine [Mass/Vol] 0.55 mg/dL Low 0.58-0.96 [facility] Comment on above: Order Comment: Flor martell Type: BLOOD SPECIMEN [facility] Address: [address] [id number] Performed By: #### 5 8410-2 #### [facility] CLIA [id number] [address] [place] [address] [place] ESTIMATED GLOMERULAR FILTRATION RATE 134 mL/min/1.73m??? Normal >=60 [facility] Comment on above: Order Comment: Flor martell Type: BLOOD SPECIMEN [facility] Address: [address] [place] [address] Result Comment: Majo mated Glomerular Filtration Rate (eGFR) is calculated using the 2020 CKD-EPI creatinine equation. This equation utilizes serum creatinine, sex, and age as parameters. The creatinine assay has traceable calibration to isotope dilution-mass spectrometry. Refer to KDIGO guidelines for clinical interpretation. In patients with unstable renal function, e.g. those with acute kidney injury, the eGFR may not accurately reflect actual GFR. Performed By: #### 5 8410-2 #### [facility] CLIA [id number] 1 [place] [address] [place] Glucose [Mass/Vol] 102 mg/dL High 74-99 [facility] Comment on above: Order Comment: Flor martell Type: BLOOD SPECIMEN Ordering Facility: [facility] Address: [address] [place] [address] Result Comment: The [place] [employer] (ADA) provides guidance for cutoff values for fasting glucose and random glucose. The ADA defines fasting as no caloric intake for at least 8 hours. Fasting plasma glucose results between 100 to 125 mg/dL indicate increased risk for diabetes (prediabetes). Fasting plasma glucose results greater than or equal to 126 mg/dL meet the criteria for diagnosis of diabetes. In the absence of unequivocal hyperglycemia, results should be confirmed by repeat testing. In a patient with classic symptoms of hyperglycemia or hyperglycemic crisis, random plasma glucose results greater than or equal to 200 mg/dL meet the criteria for diagnosis of diabetes. Reference: Standards of Medical Care in Diabetes 2016, [place] [employer]. Diabetes Care. 2016.39(Suppl 1). Performed By: #### 5 8410-2 #### [facility] CLIA [id number] [address] [place] Potassium [Moles/Vol] 4.2 mmol/L Normal 3.7-5.1 [facility] Comment on above: Order Comment: Speci men Type: BLOOD SPECIMEN [facility]ing Facility: [facility] Address: [address] [place] [address] Performed By: #### 5 8410-2 #### [facility] CLIA [id number] [address] [place] Protein [Mass/Vol] 5.5 g/dL Low 6.3-8.0 [facility] Comment on above: Order Comment: Speci men Type: BLOOD SPECIMEN [facility]ing Facility: [facility] Address: [address] [place] [address] Performed By: #### 5 8410-2 #### [facility] CLIA [id number] [address] [place] Sodium [Moles/Vol] 137 mmol/L Normal 136-144 [facility] Comment on above: Order Comment: Speci men Type: BLOOD SPECIMEN Ordering Facility: [facility] Address: [address] [place] [address] Performed By: #### 5 8410-2 #### [facility] CLIA [id number] [address] [place] Urea nitrogen [Mass/Vol] 7 mg/dL Normal 7-21 [facility] Comment on above: Order Comment: Speci men Type: BLOOD SPECIMEN [facility]ing Facility: [facility] Address: [address] [place] [address] Performed By: #### 5 8410-2 #### [facility] CLIA [id number] [address] [place] Albumin [Mass/Vol] 2.7 g/dL Low 3.9-4.9 [facility] Comment on above: Order Comment: Speci men Type: BLOOD SPECIMEN [facility]ing Facility: [facility] Address: [address] [address] Performed By: #### 2 4323-8, 3084-1, 32984-3 #### [facility] CLIA [id number] [address] ALP [Catalytic activity/Vol] 63 U/L Normal 34-123 [facility] Comment on above: Order Comment: Speci men Type: BLOOD SPECIMEN [facility]ing Facility[facility] Address: [address] [address] Performed By: #### 2 4323-8, 3084-1, 89623-7 #### [facility] CLIA [id number] [address] ALT With P-5'-P [Catalytic activity/Vol] 129 U/L High 7-38 [facility] Comment on above: Order Comment: Speci men Type: BLOOD SPECIMEN [facility] Address: [address] [place] [address] Performed By: #### 2 4323-8, 3084-1, 38556-8 #### [facility] CLIA [id number] [address] Anion gap [Moles/Vol] 13 mmol/L Normal 9-18 [facility] Comment on above: Order Comment: Speci men Type: BLOOD SPECIMEN [facility] Address: [address] [place] [address] Performed By: #### 2 4323-8, 3084-1, 11150-3 #### [facility] CLIA [id number] [address] AST With P-5'-P [Catalytic activity/Vol] 81 U/L High 13-35 [facility] Comment on above: Order Comment: Speci men Type: BLOOD SPECIMEN [facility] Address: [address] [place] [address] Performed By: #### 2 4323-8, 3084-1, 63332-0 #### [facility] CLIA [id number] [address] [place] Bilirubin [Mass/Vol] 0.7 mg/dL Normal 0.2-1.3 [facility] Comment on above: Order Comment: Speci men Type: BLOOD SPECIMEN [facility] Address: [address] [place] [address] Performed By: #### 2 4323-8, 4-1, 68439-1 #### [facility] CLIA [id number] 1 [place] [address] [place] Calcium [Mass/Vol] 6.9 mg/dL Low 8.5-10.2 [facility] Comment on above: Order Comment: Speci men Type: BLOOD SPECIMEN [facility] Address: [address] [place] [address] Performed By: #### 2 4323-8, 3083-, 34995-0 #### [facility] CLIA [id number] [address] [place] Chloride [Moles/Vol] 101 mmol/L Normal 97-105 [facility] Comment on above: Order Comment: Speci men Type: BLOOD SPECIMEN [facility] Address: [address] [place] [address] Performed By: #### 2 4323-8, 3083-1, 78700-8 #### [facility] CLIA [id number] 1 [place] [address] [place] CO2 [Moles/Vol] 20 mmol/L Low 22-30 [facility] Comment on above: Order Comment: Speci men Type: BLOOD SPECIMEN [facility] Address: [address] [place] [address] Performed By: #### 2 4323-8, 3083-1, 18604-7 #### [facility] CLIA [id number] [address] [place] Creatinine [Mass/Vol] 0.49 mg/dL Low 0.58-0.96 [facility] Comment on above: Order Comment: Flor martell Type: BLOOD SPECIMEN [facility] Address: [address] [facility] [id number] Performed By: #### 2 4323-8, 3084-1, 80200-0 #### [facility] CLIA [id number] [address] [place] ESTIMATED GLOMERULAR FILTRATION RATE 138 mL/min/1.73m??? Normal >=60 [facility] Comment on above: Order Comment: Flor jayshree Type: BLOOD SPECIMEN Ordering Facility: [facility] Address: [address] Result Comment: Majo mated Glomerular Filtration Rate (eGFR) is calculated using the 2020 CKD-EPI creatinine equation. This equation utilizes serum creatinine, sex, and age as parameters. The creatinine assay has traceable calibration to isotope dilution-mass spectrometry. Refer to KDIGO guidelines for clinical interpretation. In patients with unstable renal function, e.g. those with acute kidney injury, the eGFR may not accurately reflect actual GFR. Performed By: #### 2 4323-8, 3084-1, 27780-5 #### [facility] CLIA [id number] 1 [place] [address] [place] Glucose [Mass/Vol] 110 mg/dL High 74-99 [facility] Comment on above: Order Comment: Flor martell Type: BLOOD SPECIMEN [facility] Address: Kayla [address] Result Comment: The [place] [employer] (ADA) provides guidance for cutoff values for fasting glucose and random glucose. The ADA defines fasting as no caloric intake for at least 8 hours. Fasting plasma glucose results between 100 to 125 mg/dL indicate increased risk for diabetes (prediabetes). Fasting plasma glucose results greater than or equal to 126 mg/dL meet the criteria for diagnosis of diabetes. In the absence of unequivocal hyperglycemia, results should be confirmed by repeat testing. In a patient with classic symptoms of hyperglycemia or hyperglycemic crisis, random plasma glucose results greater than or equal to 200 mg/dL meet the criteria for diagnosis of diabetes. Reference: Standards of Medical Care in Diabetes 2016, [place] [employer]. Diabetes Care. 2016.39(Suppl 1). Performed By: #### 2 4323-8, 3084-1, 93905-2 #### [facility] CLIA [id number] [address] [place] Potassium [Moles/Vol] 3.8 mmol/L Normal 3.7-5.1 [facility] Comment on above: Order Comment: Speci men Type: BLOOD SPECIMEN [facility] Address: [address] [address] Performed By: #### 2 4323-8, 3084-1, 35358-3 #### [facility] CLIA [id number] 1 [place] [address] [place] Protein [Mass/Vol] 4.7 g/dL Low 6.3-8.0 [facility] Comment on above: Order Comment: Speci men Type: BLOOD SPECIMEN [facility] Address: [address] [address] Performed By: #### 2 4323-8, 3084-1, 27900-6 #### [facility] CLIA [id number] [address] [place] Sodium [Moles/Vol] 134 mmol/L Low 136-144 [facility] Comment on above: Order Comment: Speci men Type: BLOOD SPECIMEN [facility] Address: [address] [address] Performed By: #### 2 4323-8, 4-1, 60378-1 #### [facility] CLIA [id number] 1 [place] [address] [place] Urea nitrogen [Mass/Vol] 6 mg/dL Low 7-21 [facility] Comment on above: Order Comment: Speci men Type: BLOOD SPECIMEN [facility] Address: [address] [address] Performed By: #### 2 4323-8, 3084-1, 93689-8 #### [facility] CLIA [id number] [address] Albumin [Mass/Vol] 2.7 g/dL Low 3.9-4.9 [facility] Comment on above: Order Comment: Speci men Type: BLOOD SPECIMEN [facility] Address: [address] [place] [address] Performed By: #### 2 4323-8, 3084-1, 18742-9 #### [facility] CLIA [id number] [address] OF [facility] ALP [Catalytic activity/Vol] 64 U/L Normal 34-123 [facility] Comment on above: Order Comment: Speci men Type: BLOOD SPECIMEN [facility] Address: [address] [place] [address] Performed By: #### 2 4323-8, 3084-1, 21624-5 #### [facility] CLIA [id number] [address] ALT With P-5'-P [Catalytic activity/Vol] 144 U/L High 7-38 [facility] Comment on above: Order Comment: Speci men Type: BLOOD SPECIMEN [facility] Address: [address] [place] [address] Performed By: #### 2 4323-8, 3084-1, 57826-6 #### [facility] CLIA [id number] [address] Anion gap [Moles/Vol] 11 mmol/L Normal 9-18 [facility] Comment on above: Order Comment: Speci men Type: BLOOD SPECIMEN [facility] Address: [address] [place] [address] Performed By: #### 2 4323-8, 3084-1, 96525-7 #### [facility] CLIA [id number] [address] [place] AST With P-5'-P [Catalytic activity/Vol] 113 U/L High 13-35 [facility] Comment on above: Order Comment: Speci men Type: BLOOD SPECIMEN [facility] Address: [address] [address] Performed By: #### 2 4323-8, 3083-1, 24447-4 #### [facility] CLIA [id number] 1 [place] [address] [place] Bilirubin [Mass/Vol] 1.0 mg/dL Normal 0.2-1.3 [facility] Comment on above: Order Comment: Speci men Type: BLOOD SPECIMEN [facility] Address: [address] [address] Performed By: #### 2 4323-8, 3083-1, 03405-2 #### [id number] CLIA [id number] 1 [place] [address] [place] Calcium [Mass/Vol] 6.5 mg/dL Low 8.5-10.2 [facility] Comment on above: Order Comment: Speci men Type: BLOOD SPECIMEN [facility] Address: [address] [address] Performed By: #### 2 4323-8, 3083-1, 25285-0 #### [facility] CLIA [id number] 1 [place] [address] [place] Chloride [Moles/Vol] 90 mmol/L Low 97-105 [facility] Comment on above: Order Comment: Speci men Type: BLOOD SPECIMEN [facility] Address: [address] [address] Performed By: #### 2 4323-8, 3083-1, 19460-8 #### [facility] CLIA [id number] 1 [place] [address] [place] CO2 [Moles/Vol] 19 mmol/L Low 22-30 [facility] Comment on above: Order Comment: Speci men Type: BLOOD SPECIMEN [facility] Address: [address] [address] Performed By: #### 2 4323-8, 3084-1, 87234-9 #### [facility] CLIA [id number] [address] STATES OF [facility] Creatinine [Mass/Vol] 0.51 mg/dL Low 0.58-0.96 [facility] Comment on above: Order Comment: Flor martell Type: BLOOD SPECIMEN [facility] Address: [address] [address] Performed By: #### 2 4323-8, 3084-1, 41785-5 #### [facility] CLIA [id number] [address] ESTIMATED GLOMERULAR FILTRATION RATE 136 mL/min/1.73m??? Normal >=60 [facility] Comment on above: Order Comment: Flor martell Type: BLOOD SPECIMEN [facility] Address: [address] [place] [address] Result Comment: Majo mated Glomerular Filtration Rate (eGFR) is calculated using the 2020 CKD-EPI creatinine equation. This equation utilizes serum creatinine, sex, and age as parameters. The creatinine assay has traceable calibration to isotope dilution-mass spectrometry. Refer to KDIGO guidelines for clinical interpretation. In patients with unstable renal function, e.g. those with acute kidney injury, the eGFR may not accurately reflect actual GFR. Performed By: #### 2 4323-8, 3084-1, 60471-1 #### [facility] CLIA [id number] [address] Glucose [Mass/Vol] 102 mg/dL High 74-99 [facility] Comment on above: Order Comment: Flor jayshree Type: BLOOD SPECIMEN [facility] Address: [address] [address] Result Comment: The [place] [employer] (ADA) provides guidance for cutoff values for fasting glucose and random glucose. The ADA defines fasting as no caloric intake for at least 8 hours. Fasting plasma glucose results between 100 to 125 mg/dL indicate increased risk for diabetes (prediabetes). Fasting plasma glucose results greater than or equal to 126 mg/dL meet the criteria for diagnosis of diabetes. In the absence of unequivocal hyperglycemia, results should be confirmed by repeat testing. In a patient with classic symptoms of hyperglycemia or hyperglycemic crisis, random plasma glucose results greater than or equal to 200 mg/dL meet the criteria for diagnosis of diabetes. Reference: Standards of Medical Care in Diabetes 2016, [place] [employer]. Diabetes Care. 2016.39(Suppl 1). Performed By: #### 2 4323-8, 3084-1, 76468-6 #### [facility] CLIA [id number] 1 [place] [address] [place] Potassium [Moles/Vol] 3.6 mmol/L Low 3.7-5.1 [facility] Comment on above: Order Comment: Speci men Type: BLOOD SPECIMEN [facility] Address: [address] [place] [address] Performed By: #### 2 4323-8, 3084-1, 30889-1 #### [facility] CLIA [id number] 1 [place] [address] [place] Protein [Mass/Vol] 4.8 g/dL Low 6.3-8.0 [facility] Comment on above: Order Comment: Speci men Type: BLOOD SPECIMEN [facility] Address: [address] [place] [address] Performed By: #### 2 4323-8, 3084-1, 31192-7 #### [facility] CLIA [id number] [address] [place] Sodium [Moles/Vol] 120 mmol/L Low 136-144 [facility] Comment on above: Order Comment: Speci men Type: BLOOD SPECIMEN [facility] Address: [address] [address] Performed By: #### 2 4323-8, 3084-1, 77816-3 #### [facility] CLIA [id number] 1 [place] [address] [place] Urea nitrogen [Mass/Vol] 7 mg/dL Normal 7-21 [facility] Comment on above: Order Comment: Speci men Type: BLOOD SPECIMEN [facility] Address: [address] [address] Performed By: #### 2 4323-8, 3084-1, 14177-7 #### [facility] CLIA [id number] [address] Albumin [Mass/Vol] 3.1 g/dL Low 3.9-4.9 [facility] Comment on above: Order Comment: Speci men Type: BLOOD SPECIMEN [facility] Address: [address] [address] Performed By: #### 2 4323-8, 3084-1, 52678-4 #### [facility] CLIA [id number] [address] OF [facility] ALP [Catalytic activity/Vol] 78 U/L Normal 34-123 [facility] Comment on above: Order Comment: Speci men Type: BLOOD SPECIMEN [facility] Address: [address] [place] [address] Performed By: #### 2 4323-8, 3083-1, 93311-0 #### [facility] CLIA [id number] [address] OF [facility] ALT With P-5'-P [Catalytic activity/Vol] 205 U/L High 7-38 [facility] Comment on above: Order Comment: Speci men Type: BLOOD SPECIMEN [facility] Address: [address] [place] [address] Performed By: #### 2 4323-8, 3083-1, 44781-9 #### [facility] CLIA [id number] [address] Anion gap [Moles/Vol] 15 mmol/L Normal 9-18 [facility] Comment on above: Order Comment: Speci men Type: BLOOD SPECIMEN [facility] Address: [address] [place] [address] Performed By: #### 2 4323-8, 4-1, 09278-4 #### [facility] CLIA [id number] 1 [place] [address] [place] AST With P-5'-P [Catalytic activity/Vol] 221 U/L High 13-35 [facility] Comment on above: Order Comment: Speci men Type: BLOOD SPECIMEN [facility] Address: [address] [place] [address] Performed By: #### 2 4323-8, 3084-1, 98573-3 #### [facility] CLIA [id number] [address] [place] [address] [place] Bilirubin [Mass/Vol] 2.1 mg/dL High 0.2-1.3 [facility] Comment on above: Order Comment: Speci men Type: BLOOD SPECIMEN [facility] Address: [address] [place] [address] Performed By: #### 2 4323-8, 4-1, 64293-1 #### [facility] CLIA [id number] [address] [place] Calcium [Mass/Vol] 8.4 mg/dL Low 8.5-10.2 [facility] Comment on above: Order Comment: Speci men Type: BLOOD SPECIMEN [facility] Address: [address] [place] [address] Performed By: #### 2 4323-8, 4-1, 16017-3 #### [facility] CLIA [id number] [address] [place] [address] [place] Chloride [Moles/Vol] 100 mmol/L Normal 97-105 [facility] Comment on above: Order Comment: Speci men Type: BLOOD SPECIMEN [facility] Address: [address] [place] [address] Performed By: #### 2 4323-8, 3084-1, 02576-0 #### [facility] CLIA [id number] 1 [place] [address] [place] CO2 [Moles/Vol] 18 mmol/L Low 22-30 [facility] Comment on above: Order Comment: Speci men Type: BLOOD SPECIMEN [facility] Address: [address] [address] Performed By: #### 2 4323-8, 3084-1, 92276-8 #### [facility] CLIA [id number] [address] [place] Creatinine [Mass/Vol] 0.56 mg/dL Low 0.58-0.96 [facility] Comment on above: Order Comment: Speci men Type: BLOOD SPECIMEN [facility] Address: [address] [address] Performed By: #### 2 4323-8, 308-1, 45284-7 #### [facility] CLIA [id number] [address] STATES OF [facility] ESTIMATED GLOMERULAR FILTRATION RATE 133 mL/min/1.73m??? Normal >=60 [facility] Comment on above: Order Comment: Speci men Type: BLOOD SPECIMEN [facility] Address: [address] [place] [address] Result Comment: Majo mated Glomerular Filtration Rate (eGFR) is calculated using the 2020 CKD-EPI creatinine equation. This equation utilizes serum creatinine, sex, and age as parameters. The creatinine assay has traceable calibration to isotope dilution-mass spectrometry. Refer to KDIGO guidelines for clinical interpretation. In patients with unstable renal function, e.g. those with acute kidney injury, the eGFR may not accurately reflect actual GFR. Performed By: #### 2 4323-8, 3084-1, 84177-4 #### [facility] CLIA [id number] [address] [place] [address] [place] Glucose [Mass/Vol] 73 mg/dL Low 74-99 [facility] Comment on above: Order Comment: Speci men Type: BLOOD SPECIMEN [facility] Address: [address] [place] [address] Result Comment: The [place] [employer] (ADA) provides guidance for cutoff values for fasting glucose and random glucose. The ADA defines fasting as no caloric intake for at least 8 hours. Fasting plasma glucose results between 100 to 125 mg/dL indicate increased risk for diabetes (prediabetes). Fasting plasma glucose results greater than or equal to 126 mg/dL meet the criteria for diagnosis of diabetes. In the absence of unequivocal hyperglycemia, results should be confirmed by repeat testing. In a patient with classic symptoms of hyperglycemia or hyperglycemic crisis, random plasma glucose results greater than or equal to 200 mg/dL meet the criteria for diagnosis of diabetes. Reference: Standards of Medical Care in Diabetes 2016, [place] [employer]. Diabetes Care. 2016.39(Suppl 1). Performed By: #### 2 4323-8, 3084-1, 67281-7 #### [facility] CLIA [id number] [address] [place] [address] [place] Potassium [Moles/Vol] 3.4 mmol/L Low 3.7-5.1 [facility] Comment on above: Order Comment: Flor martell Type: BLOOD SPECIMEN [facility] Address: [address] [place] [address] Performed By: #### 2 4323-8, 3084-, 57808-1 #### [facility] CLIA [id number] [address] [place] [address] [place] Protein [Mass/Vol] 5.6 g/dL Low 6.3-8.0 [facility] Comment on above: Order Comment: Flor martell Type: BLOOD SPECIMEN [facility] Address: [address] [place] [address] Performed By: #### 2 4323-8, 3084-1, 27975-0 #### [facility] CLIA [id number] [address] [place] [address] [place] Sodium [Moles/Vol] 133 mmol/L Low 136-144 [facility] Comment on above: Order Comment: Miriami jayshree Type: BLOOD SPECIMEN [facility] Address: [address] [address] Performed By: #### 2 4323-8, 3084-1, 19750-3 #### [facility] CLIA [id number] [address] [place] Urea nitrogen [Mass/Vol] 8 mg/dL Normal 7-21 [facility] Comment on above: Order Comment: Flor martell Type: BLOOD SPECIMEN Ordering Facility: [facility] Address: [address] [place] [address] Performed By: #### 2 4323-8, 3084-1, 31592-7 #### [facility] CLIA [id number] [address] OF [facility] Creatinine Unsp time (U) [Ma ss/Vol]on 02-07-2023 Creatinine (U) [Mass/Vol] 70.9 mg/dL Normal 42.2-237.9 [facility] Comment on above: Order Comment: Flor martell Type: BLOOD SPECIMEN Ordering Facility: [facility] Address: [address] [place] [address] Performed By: #### 2 4323-8, 3084-1, 47877-0 #### [facility] CLIA [id number] [address] [place] Fibrinogen PPP-mCncon 2022 Fibrinogen Coag (PPP) [Mass/Vol] 449 mg/dL High 200-400 [facility] Comment on above: Order Comment: Flor martell Type: BLOOD SPECIMEN Ordering Facility: [facility] Address: [address] [place] [address] Performed By: #### 2 4323-8, 3084-1, 38128-3 #### [facility] CLIA [id number] [address] OF [place] HISTORY PHYSICALon 3 HISTORY PHYSICAL HNO ID: [id number] Author: Yarely Sherwood MD Service: Obstetrics Author Type: Resident Type: HANDP Filed: 02/07/2023 2:59 AM Note Text: Attestation signed by Jean Hernandez MD at 02/07/2023 2:15 PM Attending Attestation I was available for consultation by phone. I agree with the resident's findings and plan as documented and have discussed the case and management of the patient's care with the resident. I have reviewed and edited the above note to reflect our collaborative assessment and recommendations. Jean Hernandez MD February 07, 2023 2:14 PM MATERNAL MEDICINE HISTORY AND PHYSICAL SERVICE DATE: February 07, 2023 SERVICE TIME: 12:21 AM Subjective Patient's stated reason for arrival: CHIEF COMPLAINT: Transfer from [place] HISTORY OF THE PRESENT ILLNESS: The patient is a 22 year old female, , who is at 29w1d with an JAX of 04/24/2023, by Ultrasound dating method. Patient is here as a transfer from [facility], where she was found to have elevated liver enzymes and low platelets. Patient presented after a week of worsening abdominal pain. Patient currently denies any abdominal pain, CADENA, vision changes, CP, or SOB. Patient notes some right neck pain following IV placement. Good movement. Denies vaginal bleeding., Denies contractions., Denies leaking of fluid. . POST DELIVERY CONTRACEPTION: Discussed post-delivery contraception options. Patient received written information about post-delivery contraception options. Patient does not desire post-delivery contraception. HISTORY REVIEW PAST MEDICAL HISTORY Diagnosis Date Acne 08/07/2013 Anxiety 08/07/2012 anxiety Back pain 08/07/2014 Resolved breast mass 07/2022 Left Constipation 08/07/2008 Headache 08/07/2012 Heart murmur 05/07/2013 HELLP syndrome, antepartum 02/07/2023 Knee pain Migraine Thumb fracture left age 11 yrs PAST SURGICAL HISTORY Procedure Laterality Date PAST SURGICAL HISTORY OF 12/15/2020 Incision and Drainage, Pilonidal Cyst FAMILY HISTORY Problem Relation Age of Onset Seizures Father Diabetes Maternal Grandfather Hypertension Maternal Grandfather Lipids Maternal Grandfather No Known Problems Paternal Grandmother Cancer Paternal Grandfather Breast Cancer Other Breast Cancer Other 40 Social History Tobacco Use Smoking status: Never Smokeless tobacco: Never Vaping Use Vaping Use: Never used Substance Use Topics Alcohol use: Never Drug use: Never Obstetric History T0 L0 SAB0 IAB0 Ectopic0 Multiple0 Live Births0 Name of Baby 1: Not recorded Date: Not recorded GA: Not recorded Delivery: Not recorded Apgar1: Not recorded Apgar5: Not recorded Living: Not recorded There are no active non-hospital problems to display for this patient. ALLERGIES Allergen Reactions Seasonal Allergies Other: See Comments Runny nose, sneezing, itching in eyes. Prior to Admission Medications Prescriptions Last Dose Informant Patient Reported? Taking? aspirin, enteric coated (ASPIRIN, ENTERIC COATED) 81 mg EC tablet Unknown No No Sig: Take 2 tablets by mouth once daily. Patient not taking: No sig reported cyclobenzaprine (FLEXERIL) 5 mg tablet Unknown No No Sig: Take 1 tablet by mouth three times daily. ondansetron (ZOFRAN) 4 mg tablet Unknown No No Sig: Take 1 tablet by mouth every 8 hours as needed for nausea/vomiting. prental multivitamin 27 mg iron- 800 mcg tablet Unknown Yes No Sig: Take 1 tablet by mouth once daily. Facility-Administered Medications: None REVIEW OF SYSTEMS: The remainder of the review of systems is negative. Objective LAST VITALS: Pulse BP Resp O2 Sat Temp Pain 120 145/94 16 97 % 36.9 ?C (98.4 ?F) 5 PHYSICAL EXAM: General: WD, WN HEENT: NC/AT, sclera white Lungs: clear, Heart: RR, S1, S2 Abdomen: soft, nontender, no masses, no HSM Uterus: soft, NT Extremities: tr edema DTRs: 2+ MONITORING/ASSESSMENT : 145/moderate/+accels/ no decels Cat 1, reactive Pavo: q4 min ULTRASOUND: US findings: Head position: cephalic, HR: present, Placental location: anterior, Amniotic Fluid: DVP 2.4cm LABS Diagnostic tests reviewed for today's visit: Most recent labs and imaging results. Maternal Results (In Last 9 Months): Hemoglobin (g/dL) Date/Time Value 02/06/2023 2322 10.4 (L) 01/30/2023 1110 11.7 10/06/2022 1037 13.4 Hematocrit (%) Date/Time Value 02/06/20232321 30.5 (L) 01/30/2023 1110 35.7 (L) 10/06/2022 1037 38.8 Platelet Count (k/uL) Date/Time Value 02/06/20232321 40 (L) 01/30/2023 1110 164 10/06/2022 1037 252 ABO (no units) Date/Time Value 02/06/20232321 A Rh(D) (no units) Date/Time Value 02/06/20232321 Negative SARS-CoV-2 (Agent of COVID-19) (no units) Date/Time (more content not included)... Normal [facility] HISTORY PHYSICAL HNO ID: [id number] Author: Yarely Sherwood MD Service: Obstetrics Author Type: Resident Type: HANDP Filed: 02/07/2023 2:58 AM Note Text: Attestation signed by Areli Whitehead MD at 02/08/2023 9:50 AM Attending Note I personally saw and examined the patient. I reviewed the resident's note. I agree with the resident's assessment and plan unless otherwise noted. Transfer accepted by [facility], Dr. Bauer for presumed HELLP syndrome. Plan for delivery via for which [facility] was consulted. Patient typed and crossed for 2 units of whole blood and 2 of platelets. Signature: Areli Whitehead MD Date: 02/08/2023 Time: 9:49 AM OBSTETRICS HISTORY AND PHYSICAL SERVICE DATE: February 07, 2023 SERVICE TIME: 12:21 AM Subjective Patient's stated reason for arrival: CHIEF COMPLAINT: Transfer from [place] HISTORY OF THE PRESENT ILLNESS: The patient is a 22 year old female, , who is at 29w1d with an JAX of 04/24/2023, by Ultrasound dating method. Patient is here as a transfer from [facility], where she was found to have elevated liver enzymes and low platelets. Patient presented after a week of worsening abdominal pain. Patient currently denies any abdominal pain, CADENA, vision changes, CP, or SOB. Patient notes some right neck pain following IV placement. Good movement. Denies vaginal bleeding., Denies contractions., Denies leaking of fluid. . POST DELIVERY CONTRACEPTION: Discussed post-delivery contraception options. Patient received written information about post-delivery contraception options. Patient does not desire post-delivery contraception. HISTORY REVIEW PAST MEDICAL HISTORY Diagnosis Date Acne 08/07/2013 Anxiety 08/07/2012 anxiety Back pain 08/07/2014 Resolved breast mass 07/2022 Left Constipation 08/07/2008 Headache 08/07/2012 Heart murmur 05/07/2013 HELLP syndrome, antepartum 02/07/2023 Knee pain Migraine Thumb fracture left age 11 yrs PAST SURGICAL HISTORY Procedure Laterality Date PAST SURGICAL HISTORY OF 12/15/2020 Incision and Drainage, Pilonidal Cyst FAMILY HISTORY Problem Relation Age of Onset Seizures Father Diabetes Maternal Grandfather Hypertension Maternal Grandfather Lipids Maternal Grandfather No Known Problems Paternal Grandmother Cancer Paternal Grandfather Breast Cancer Other Breast Cancer Other 40 Social History Tobacco Use Smoking status: Never Smokeless tobacco: Never Vaping Use Vaping Use: Never used Substance Use Topics Alcohol use: Never Drug use: Never Obstetric History T0 L0 SAB0 IAB0 Ectopic0 Multiple0 Live Births0 Name of Baby 1: Not recorded Date: Not recorded GA: Not recorded Delivery: Not recorded Apgar1: Not recorded Apgar5: Not recorded Living: Not recorded There are no active non-hospital problems to display for this patient. ALLERGIES Allergen Reactions Seasonal Allergies Other: See Comments Runny nose, sneezing, itching in eyes. Prior to Admission Medications Prescriptions Last Dose Informant Patient Reported? Taking? aspirin, enteric coated (ASPIRIN, ENTERIC COATED) 81 mg EC tablet Unknown No No Sig: Take 2 tablets by mouth once daily. Patient not taking: No sig reported cyclobenzaprine (FLEXERIL) 5 mg tablet Unknown No No Sig: Take 1 tablet by mouth three times daily. ondansetron (ZOFRAN) 4 mg tablet Unknown No No Sig: Take 1 tablet by mouth every 8 hours as needed for nausea/vomiting. prental multivitamin 27 mg iron- 800 mcg tablet Unknown Yes No Sig: Take 1 tablet by mouth once daily. Facility-Administered Medications: None REVIEW OF SYSTEMS: The remainder of the review of systems is negative. Objective LAST VITALS: Pulse BP Resp O2 Sat Temp Pain 116 132/88 18 97 % 5 PHYSICAL EXAM: General: WD, WN HEENT: NC/AT, sclera white Lungs: clear, Heart: RR, S1, S2 Abdomen: soft, nontender, no masses, no HSM Uterus: soft, NT Extremities: tr edema DTRs: 2+ MONITORING/ASSESSMENT : 145/moderate/+accels/ no decels Cat 1, reactive Pavo: q4 min ULTRASOUND: US findings: Head position: cephalic, HR: present, Placental location: anterior, Amniotic Fluid: DVP 2.4cm LABS Diagnostic tests reviewed for today's visit: Most recent labs and imaging results. Maternal Results (In Last 9 Months): Hemoglobin (g/dL) Date/Time Value 02/06/2023 2322 10.4 (L) 01/30/2023 1110 11.7 10/06/2022 1037 13.4 Hematocrit (%) Date/Time Value 02/06/2023 2322 30.5 (L) 01/30/2023 1110 35.7 (L) 10/06/2022 1037 38.8 Platelet Count (k/uL) Date/Time Value 02/06/2023 2322 40 (L) 01/30/2023 1110 164 10/06/2022 1037 252 ABO (no units) Date/Time Value 02/06/2023 2322 A Rh(D) (no units) Date/Time Value 02/06/2023 232 Negative SARS-CoV-2 (Ag (more content not included)... Normal [facility] OPERATIVE NOon 02-07-2023 OPERATIVE NO HNO ID: [id number] Author: Yarely Sherwood MD Service: Obstetrics Author Type: Resident Type: Operative Report Filed: 02/07/2023 3:57 AM Note Text: Attestation signed by Areli Whitehead MD at 02/07/2023 3:01 PM Attestation: I was present for the critical and valentine portions of the surgery and I was immediately available to provide assistance. Low transverse delivery was possible due to a developed enough lower uterine segment. Areli Whitehead MD OB OPERATIVE/PROCEDURE REPORT LOG ID: [id number] Surgery/Procedure Date: 02/07/2023 Incision/Procedure Start Time: 1:07 AM Incision Close/Procedure End Time: 2:34 AM Surgeon(s)/Procedural ist(s) and Implement Mechanic(s): Surgeon(s) and Role: * Areli Whitehead MD - Primary * Yarely Sherwood MD - Resident - Assisting No Additional Staff Informed Consent: Informed Consent obtained and on the chart Procedure: Section Gestational Age at Delivery: 29w1d Reason for Delivery Today: PRIMARY Reason for Delivery : Hypertension Additional Clinical Indicator(s) for delivery: Other (see comment) Hypertension Type: Severe Pre/Eclampsia Delivery type: , Low Transverse Intrapartum Complications: None Delivery between 24 - 34 weeks?: Yes Has the patient completed their course of steroids?: Partial Course Was the course Initiated?: Yes Reason(s) patient was not able to complete a full course of steroids: Imminent Delivery Indications for : Other (see delivery note), Remote from Vaginal Delivery Assisted Delivery: (for additional details, see Delivery Summary Record or Report) Vacuum Used: No Forceps Used: No Additional Pre-Op Details (if applicable): Hospital Course: Nestor Lopez is a 22 year old female at 29w1d who presented to [facility] Estimated Date of Delivery: 04/24/23 as a transfer of care from [facility] with presumed HELLP syndrome. She presented to [facility] with abdominal pain, was found to have severe thrombocytopenia and transaminitis, and was life flighted to [facility]. Her course was complicated by HELLP syndrome, . The patient was GBSunknown. Following discussion with [facility], the decision was made to proceed to delivery due to HELLP syndrome. Due to the patient's lab values and remote nature from delivery, the decision was made to proceed with a delivery. Postop Diagnosis: HELLP syndrome Procedures and Anesthesia: Procedure(s) and Anesthesia Type: * SECTION Information for the patient's : John, Girl Nestor Curtis [[id number]] Type: , Low Transverse Operative Findings: Weight: 1.34 kg (2 lb 15.3 oz) (Filed from Delivery Summary) Sex: female One Minute : 1 Five Minute : 2 Cord Complications: None Additional Findings: Normal uterus, Normal tubes, and Normal ovaries TECHNIQUE: The patient was taken to the operating room where general anesthesia was induced and found to be adequate. She was placed in supine position with a left tilt. SCD's were placed. Ingram catheter was placed under sterile conditions. She was prepped and draped in the usual sterile fashion for abdominal surgery. Pfannensteil incision was made with the scalpel. Incision was taken down to the fascia with the scalpel, and the fascia was incised in the midline. Incision was extended laterally bluntly. Rectus muscles were dissected off the fascia bluntly and divided in the midline. Peritoneum was entered sharply and incision was extended superiorly and inferiorly. The bladder blade was then introduced. Hysterotomy was performed in a low transverse fashion with the scalpel. The incision was extended manually. initially cephalic, and then upon attempt at delivery flipped to breech presentation. She was delivered from a from a double footling breech position. was delivered to the shoulders with fundal pressure and traction placed on the hips after a moist towel was applied. Both arms were sequentially delivered by swinging them in front of the chest. Head was then delivered atraumatically. Cord blood was collected. , A sample of the cord was collected to obtain the pH. Placenta then delivered manually. The uterus was then exteriorized and cleared of clots and debris. The bladder blade was reintroduced. The uterus was closed in three Layers. The first layer was a running locked stitched of 0-Vicryl. The second layer was in imbricating stitch of 0-Vicryl. Third layer was a layer of locked 2-0 monocryl to help with serosal bleeding. Excellent hemostasis was obtained. Uterus was returned to the abdomen. Inspection of the pelvis noted the above findings. There was some small bleeding noted at perivesical fat and peritoneum above the bladder dome along with (more content not included)... Normal [facility] Osmolality SerPlon 3 Osmolality [Osmolality] 278 mosm/kg Normal 275-300 [facility] Comment on above: Order Comment: Speci men Type: BLOOD SPECIMEN Order[facility] Facility: [facility] Address: [address] [address] Performed By: #### 2 4323-8, 3084-1, 15066-8 #### [facility] CLIA [id number] [address] [place] Osmolality Uron 02-07-2023 Osmolality (U) [Osmolality] 646 mosm/kg Normal 50-1200 [facility] Comment on above: Order Comment: Speci men Type: BLOOD SPECIMEN Order[facility] Address: [address] [address] Performed By: #### 2 4323-8, 3084-1, 78255-0 #### [facility] CLIA [id number] [address] [place] POST-DELIVERY RH IGGon 02-07 ABO A Normal [facility] Comment on above: Order Comment: Speci men Type: BLOOD SPECIMEN Order[facility] Facility[facility] Address: [address] [address] Performed By: #### 5 8410-2 #### [facility] CLIA [id number] [address] SCREEN Negative Normal [facility] Comment on above: Order Comment: Flor martell Type: BLOOD SPECIMEN Order[facility] Facility[facility] Address: [address] [place] [address] Result Comment: Kit Lot Number and Expiration Date: Lot #: [id number] exp. 02-17-23 Performed By: #### 5 8410-2 #### [facility] CLIA [id number] [address] KB REFLEX No Normal [facility] Comment on above: Order Comment: Flor martell Type: BLOOD SPECIMEN [facility] Address: [address] [place] [address] Performed By: #### 5 8410-2 #### [facility] CLIA [id number] [address] Rh Nom (Bld) Negative Normal [facility] Comment on above: Order Comment: Flor martell Type: BLOOD SPECIMEN [facility] Address: [address] [place] [address] Performed By: #### 5 8410-2 #### [facility] CLIA [id number] [address] PT panel Coag (PPP)on 2022 INR Coag (PPP) [Relative time] {INR} Low 0.9-1.3 [facility] Comment on above: Order Comment: Specbob martell Type: BLOOD SPECIMEN Order[facility] Address: [address] [place] [address] Result Comment: Susan min K Antagonist (VKA) Therapeutic Range: INR 2 to 3 (Target INR of 2.5) Note: For patients treated with VKA drugs, such as warfarin, the [employer] 2012 Guideline recommends a therapeutic INR range of 2 to 3 (target INR of 2.5). This recommendation includes high-risk patients with antiphospholipid syndrome with previous arterial or venous thromboembolism, current-generation mechanical or bioprosthetic aortic heart valve replacement. Note: Patients with mechanical aortic valve replacement and additional risk factors for thromboembolic events (atrial fibrillation, previous thromboembolism, LV dysfunction, hypercoagulable conditions) or an older generation mechanical AVR (i.e., ball in-Cage) or any mechanical MVR should have a INR therapeutic range of 2.5 to 3.5 (target INR of 3). Demetria BURGOS, et al. Chest 2012, 141:7S-47S Nereida RA, et al. [facility] 2017, 70: 252-289 Performed By: #### 2 4323-8, 3084-1, 17554-6 #### [facility] CLIA [id number] [address] [place] PT Coag (PPP) [Time] 9.5 s Low 9.7-13.0 [facility] Comment on above: Order Comment: Flor martell Type: BLOOD SPECIMEN [facility] Address: [address] [place] [address] Performed By: #### 2 4323-8, 308-1, 26804-2 #### [facility] CLIA [id number] [address] Prot/Creat Uron 02-07-2023 Protein/Creatinine (U) [Mass ratio] 0.32 mg/mg High <0.15 [facility] Comment on above: Order Comment: Flor martell Type: BLOOD SPECIMEN [facility] Address: [address] [place] [address] Result Comment: Adul t Proteinuria Categories: <0.15 mg/mg is considered normal to mildly increased 0.15 - 0.50 mg/mg is considered moderately increased >0.50 mg/mg is considered severely increased KDIGO. (2013). KDIGO 2012 Clinical Practice Guideline for the Evaluation and Management of Chronic Kidney Disease. Official Journal of the International Society of Nephrology, 3(1), 1-150. Performed By: #### 2 4323-8, 3084-1, 36111-6 #### [facility] CLIA [id number] [address] Protein/Creatinine (U) [Mass ratio]on 02-07-2023 Creatinine (U) [Mass/Vol] 116.5 mg/dL Normal 42.2-237.9 [facility] Comment on above: Order Comment: Speci men Type: BLOOD SPECIMEN [facility] Address: [address] [place] [address] Performed By: #### 2 4323-8, 3084-1, 55893-6 #### [facility] CLIA [id number] [address] STATES OF [facility] Protein (U) [Mass/Vol] 37 mg/dL High 0-20 [facility] Comment on above: Order Comment: Speci men Type: BLOOD SPECIMEN [facility] Address: [address] [place] [address] Performed By: #### 2 4323-8, 3084-1, 98359-3 #### [facility] CLIA [id number] [address] [place] Sodium ?Tm Ur-sCncon 023 Sodium Unsp time (U) [Moles/Vol] 157 mmol/L Normal 14-216 [facility] Comment on above: Order Comment: Speci men Type: BLOOD SPECIMEN [facility] Address: [address] [place] [address] Performed By: #### 2 4323-8, 3084-1, 26717-7 #### [facility] CLIA [id number] [address] OF [facility] TYPE + SCREEN PRENATALon ABO A Normal [facility] Comment on above: Order Comment: Speci men Type: BLOOD SPECIMEN [facility] Address: [address] [place] [address] Performed By: #### 5 8410-2 #### [facility] CLIA [id number] [address] OF [facility] HISTORICAL AB SCR STATUS Negative Normal [facility] Comment on above: Order Comment: Speci men Type: BLOOD SPECIMEN [facility] Address: [address] [place] [address] Performed By: #### 5 8410-2 #### [facility] CLIA [id number] [address] Rh Nom (Bld) Negative Normal [facility] Comment on above: Order Comment: Speci men Type: BLOOD SPECIMEN [facility] Address: [address] [place] [address] Performed By: #### 5 8410-2 #### [facility] CLIA [id number] [address] TYPE AND SCREEN EXPIRATION 02/09/2023 23:59 Normal [facility] Comment on above: Order Comment: Speci men Type: BLOOD SPECIMEN [facility] Address: [address] [place] [address] Performed By: #### 5 8410-2 #### [facility] CLIA [id number] [address] URIC ACID RANDOM URon 2022 Urate (U) [Mass/Vol] 8.5 mg/dL Low 10.0-90.0 [facility] Comment on above: Order Comment: Speci men Type: URINE SPECIMEN Order[facility] Address: [address] [place] [address] Performed By: #### U URICR #### [facility] CLIA [id number] [address] [place] [address] [place] Urate SerPl-mCncon 3 Urate [Mass/Vol] 5.9 mg/dL Normal 2.5-6.6 [facility] Comment on above: Order Comment: Speci men Type: BLOOD SPECIMEN [facility] Address: [address] [place] [address] Performed By: #### 2 4323-8, 3084-1, 23570-7 #### [facility] CLIA [id number] [address] [place] aPTT PPPon 02-07-2023 aPTT Coag (PPP) [Time] 32.7 s High 23.0-32.4 [facility] Comment on above: Order Comment: Speci men Type: BLOOD SPECIMEN [facility] Facility[facility] Address: [place] [address] Performed By: #### 2 4323-8, 3084-1, 01187-0 #### [facility] CLIA [id number] [address] [place] [address] [facility] Absolute lymphocyte countOrd ered By: Mary Arredondo on 02-06-2023 Lymphocytes Auto (Unsp spec) [#/Vol] 1.42 10*3/uL 0.83-4.51 [facility] Basophil percentageOrdered B y: Mary Arredondo on 02-06-2023 Amylase [Catalytic activity/Vol] 35 U/L 25-115 [facility] Basophils/100 WBC (Bld) 0.3 % 0-1 [facility] Bilirubin [Mass/Vol] 2.00 mg/dL 0.20-1.00 [facility] Comment on above: For patients on eltr ombopag therapy, use of [employer] [place] TBIL is not recommended. Chloride [Moles/Vol] 107 mmol/L 98-107 [facility] Eosinophils/100 WBC (Bld) 1.8 % 0-5 [facility] Glucose [Mass/Vol] 71 mg/dL 74-[address] [facility] Neutrophils (Bld) [#/Vol] 8.6 10*3/uL 2.0-7.7 [facility] Neutrophils/100 WBC (Bld) 77.9 % 47-70 [facility] Potassium [Moles/Vol] 3.4 mmol/L 3.5-5.1 [facility] Protein [Mass/Vol] 6.0 g/dL 6.4-8.[address] [facility] Sodium [Moles/Vol] 137 mmol/L 136-[address] [facility] WBC (Bld) [#/Vol] 11.1 10*3/uL 4.4-11.0 [facility] Blood erythrocytes count (nu mber/volume)Ordered By: Mary Arredondo on 02-06-2023 RBC (Bld) [#/Vol] 4.00 10*6/uL 4.2-5.4 [facility] Blood hemoglobin measurement (mass/volume)Ordered By: Mary Arredondo on 02-06-2023 Hemoglobin (Bld) [Mass/Vol] 11.0 g/dL 12.0-15.0 [facility] Blood lymphocytes/100 leukoc ytesOrdered By: Mary Arredondo on 02-06-2023 Lymphocytes/100 WBC (Bld) 12.8 % 19-41 [facility] Blood manual differential co mment interpretation (narrative result)Ordered By: Mary Arredondo on 02-06-2023 Manual differential comment Junito (Bld) [Interp] SCANNED [facility] Comment on above: THROMBOCYTOPENIA NOT ED Blood monocytes/100 leukocyt esOrdered By: Mary Arredondo on 02-06-2023 Monocytes/100 WBC (Bld) 6.2 % 0-10 [facility] Blood platelet mean volumeOr dered By: Mary Arredondo on 02-06-2023 Platelet mean volume (Bld) [Entitic vol] 11.8 fL 6.2-12.0 [facility] Determination of erythrocyte mean corpuscular volume (MCV)Ordered By: Mary Arredondo on 02-06-2023 MCV (RBC) [Entitic vol] 83.0 fL 81-99 [facility] Hematocrit Auto (Bld) [Volum e fraction]Ordered By: Mary Arredondo on 02-06-2023 Hematocrit (Bld) [Volume fraction] 33.2 % 37-47 [facility] INR in Blood by Coagulation assayOrdered By: Mary Arredondo on 02-06-2023 INR Coag (Bld) [Relative time] 1.2 {INR} [facility] Laboratory - Chemistry and C hemistry - challengeOrdered By: Mary Arredondo on 02-06-2023 ALP [Catalytic activity/Vol] 81 U/L 45-117 [facility] ALT [Catalytic activity/Vol] 233 U/L 13-56 [facility] CO2 [Moles/Vol] 23.0 mmol/L 21.0-32.0 [facility] Globulin (S) [Mass/Vol] 3.6 g/dL 2.2-4.2 [facility] Lipase [Catalytic activity/Vol] 19 U/L 13-75 [facility] Comment on above: Please note:LIPASE r evised reference range effective 22. New Lipase methodology. Expected to produce lower values than the previous assay method. NEW Reference Range: 13 - 75 U/L Urea nitrogen/Creatinine [Mass ratio] 17.2 mg/mg 10-20 [facility] Laboratory - CoagulationOrde red By: Mary Arredondo on 02-06-2023 aPTT Coag (Bld) [Time] 40.3 s 24.1-36.2 [facility] PT Coag (PPP) [Time] 15.0 s 11.7-14.9 [facility] Laboratory - Hematology and Cell countsOrdered By: Mary Arredondo on 02-06-2023 Erythrocyte distribution width (RBC) [Entitic vol] 40.9 fL 35.1-43.9 [facility] Erythrocyte distribution width (RBC) [Ratio] 14.0 % 11.6-14.6 [facility] Immature granulocytes/100 WBC (Bld) 1.000 % 0.0-0.9 [facility] Comment on above: IG% - Immature Granu locytes (promyelocytes, myelocytes and metamyelocytes) > 1% indicates that a LEFT SHIFT is Present. MCH (RBC) [Entitic mass] 27.5 pg 27.0-32.0 [facility] Nucleated RBC/100 WBC (Bld) [Ratio] 0 % 0-5 [facility] MCHC Auto (RBC) [Mass/Vol]Or dered By: Mary Arredondo on 02-06-2023 MCHC (RBC) [Mass/Vol] 33.1 g/dL 32-36 [facility] No Panel InformationOrdered By: Mary Arredondo on 02-06-2023 Fibrinogen 395 mg/dl 203-444 [facility] Estimated Creatinine Clearance Calc 143.63 ml/min [facility] Estimated GFR (MDRD) Amer 167 mL/min >60 [facility] Comment on above: GFR Calc Estimated GFR (MDRD) Non-Af Amer 138 mL/min >60 [facility] Comment on above: Non- GFR Calc Platelets bldOrdered By: Abdirahman Arredondo on 02-06-2023 Platelets (Bld) [#/Vol] 36 10*3/uL 150-450 [facility] Comment on above: CRITICAL VALUE VERIF IED. CALLED TO [id number] Uyen Fernando.RESULTS READ BACK BY SAME . Review by pathologistOrdered By: Mary Arredondo on 02-06-2023 Pathologist review Junito (Unsp spec) [Interp] May foll [facility] Serum or plasma albumin emilie urement (mass/volume)Ordered By: Mary Arredondo on 02-06-2023 Albumin [Mass/Vol] 2.4 g/dL 3.2-5.[address] [facility] Serum or plasma albumin/glob ulin mass ratioOrdered By: Mary Arredondo on 02-06-2023 Albumin/Globulin [Mass ratio] 0.7 {ratio} 0.9-2.4 [facility] Serum or plasma calcium emilie urement (mass/volume)Ordered By: Mary Arredondo on 02-06-2023 Calcium [Mass/Vol] 8.6 mg/dL 8.5-10.[address] [facility] Serum or plasma creatinine m easurement (mass/volume)Ordered By: Mary Arredondo on 02-06-2023 Creatinine [Mass/Vol] 0.58 mg/dL 0.55-1.02 [facility] Comment on above: The validity of the calculated GFR & GFRAA in patients over 70 years has not been determined. Clinical correlation is essential. Serum or plasma urea nitroge n measurement (mass/volume)Ordered By: Mary Arredondo on 02-06-2023 Urea nitrogen [Mass/Vol] 10 mg/dL 7-18 [facility] Thin prep Papanicolaou smear with manual screeningOrdered By: Mary Arredondo on 02-06-2023 Thin prep Papanicolaou smear with manual screening 224 U/L 15-37 [facility] Thin prep Papanicolaou smear with manual screening 7 5-15 [facility] URINE OB DIP B/Oon 3 Glucose Ql (U) Negative Neg mg/dL [facility] Protein.monoclonal (U) [Mass/Vol] trace Neg mg/dL [facility] Urine creatinine measurement (mass/volume)Ordered By: Mary Arredondo on 02-06-2023 Creatinine (U) [Mass/Vol] 230.00 mg/dL NO RANGE EST. [facility] Urine protein measurement (m ass/volume)Ordered By: Mary Arredondo on 02-06-2023 Protein (U) [Mass/Vol] 71.3 mg/dL 0.0-11.8 [facility] Urine protein/creatinine mas s ratioOrdered By: Mary Arredondo on 02-06-2023 Protein/Creatinine (U) [Mass ratio] 310 mg/g CRE 0-200 [facility] Bilirubin Test strip Ql (U)O rdered By: Terra Herrera on 02-04-2023 Bilirubin Ql (U) Negative Negative [facility] Culture, urineOrdered By: Enio Herrera on 02-04-2023 Bacteria identified Cx Nom (U) Positive [facility] Ketones Test strip Ql (U)Ord ered By: Terra Herrera on 02-04-2023 Ketones Ql (U) Negative Negative [facility] Nitrite Test strip Ql (U)Ord ered By: Terra Herrera on 02-04-2023 Nitrite Ql (U) Negative Negative [facility] Protein Test strip Ql (U)Ord ered By: Terra Herrera on 02-04-2023 Protein Ql (U) Negative Negative [facility] Urine blood detectionOrdered By: Terra Herrera on 02-04-2023 RBC Ql (U) Negative Negative [facility] Urine clarityOrdered By: Ninfa Herrera on 02-04-2023 Clarity (U) Sl. Cloudy Clear [facility] Urine color determinationOrd ered By: Terra Herrera on 02-04-2023 Color (U) Yellow Yellow [facility] Urine glucose detectionOrder ed By: Terra Herrera on 02-04-2023 Glucose Ql (U) Normal mg/dl Normal [facility] Urine leukocyte esterase det ection by dipstickOrdered By: Terra Herrera on 02-04-2023 Leukocyte esterase Test strip Ql (U) Negative Negative [facility] Urine pHOrdered By: Terra Herrera on 02-04-2023 pH (U) 7.0 [pH] 5.0 - 8.0 [facility] Urine specific gravity measu rementOrdered By: Terra Herrera on 02-04-2023 Specific gravity (U) [Rel density] 1.010 1.002-1.030 [facility] Urobilinogen Auto test strip Ql (U)Ordered By: Terra Herrera on 02-04-2023 Urobilinogen Ql (U) Normal mg/dl Normal [facility] URINE OB DIP B/Oon 3 Glucose Ql (U) Negative Neg mg/dL [facility] Protein.monoclonal (U) [Mass/Vol] Negative Neg mg/dL [facility] OBSTETRIC ULTRASOUND WHIon 0 12-06-2022 [facility] URINE OB DIP B/Oon 3 Glucose Ql (U) Negative Neg mg/dL [facility] Protein.monoclonal (U) [Mass/Vol] Negative Neg mg/dL [facility] URINE OB DIP B/Oon 3 Glucose Ql (U) Negative Neg mg/dL [facility] Protein.monoclonal (U) [Mass/Vol] Negative Neg mg/dL [facility] CBC panel Auto (Bld)on 10-06 Erythrocyte distribution width (RBC) [Ratio] 12.6 % 11.5 - 15.0 % [facility] Hematocrit (Bld) [Volume fraction] 38.8 % 36.0 - 46.0 % [facility] Hemoglobin (Bld) [Mass/Vol] 13.4 g/dL 11.5 - 15.5 g/dL [facility] MCH (RBC) [Entitic mass] 27.0 pg 26. 0 - 34.0 pg [facility] MCHC (RBC) [Mass/Vol] 34.5 g/dL 30.5 - 36.0 g/dL [facility] MCV (RBC) [Entitic vol] 78.2 fL Low 80.0 - 100.0 fL [facility] Nucleated RBC (Bld) [#/Vol] <0.01 k/uL [facility] Platelet mean volume (Bld) [Entitic vol] 9.8 fL 9.0 - 12.7 fL [facility] Platelets (Bld) [#/Vol] 252 10*3/uL 150 - 400 k/uL [facility] RBC (Bld) [#/Vol] 4.96 10*6/uL 3.90 - 5.2 0 m/uL [facility] WBC (Bld) [#/Vol] 7.91 10*3/uL 3.70 - 11. 00 k/uL [facility] URINE OB DIP B/Oon 3 Glucose Ql (U) Negative Neg mg/dL [facility] Protein.monoclonal (U) [Mass/Vol] Negative Neg mg/dL [facility] Progress Noteon 02-24-2022 [employer] Aut[employer] Interface Message Text Patient ID: Nestor Lopez is a 21 y.o. female. Her chief complaint(s) include: 21 YEAR WELL CHILD (Physical form and TB testing for nursing school) Assessment 1. Routine general medical examination at a health care facility 2. Anxiety Plan Nestor was seen today for 21 year well child. Diagnoses and all orders for this visit: Routine general medical examination at a health care facility - PHQ9 Assessment With Score - Health Risk Assessment - OMID Anxiety Return in about 1 year (around 02/24/2023) for well check. Doing well. No concerns. Will continue on lexapro 20 mg daily and OCP- doing well on both. Will come back tomorrow morning for PPD read. 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 Had first PPD placed 1.5 days ago, coming back tomorrow morning for read. Will need second step placed next week. Working at [employer] this summer. Doing well on lexapro. No concerns. Engaged, planning to get after nursing school. She is unaccompanied. 21 YEAR WELL CHILD Home: Nestor has an adult to turn to for help, is permitted and able to make independent decisions and lives apart from family (lives with fichelsea). Education: (Starting nursing school). Eating: Nestor eats regular meals including fruits and vegetables and has a calcium source. Activities & Sports: Nestor has friends and has a job ([employer]). (likes reading). Drugs: Nestor does not use tobacco, does not use drugs, does not use alcohol and does not vape. Safety: Nestor has a violence free home and has peer relationships free from violence. Sex: The patient is interested in males. The patient has had sex. Typically, the patient uses condoms and oral contraceptives as current contraceptive method. The patient's partner has had an STD: no. STD screening offered and declined. Suicidality: Nestor has ways to cope with stress and displays self-confidence. Nestor has no problems with sleep, has no depression, has no anxiety (no issues lately), does not have mood swings, has no suicidal ideation and has no homicidal ideation. PHQ-9 Score: 0 Menstruation Last Menstrual period: hormonal therapy (LMP 01/27/22. Doing well on OCP, no concerns.) Output Urine and Stool Pattern: Urine and Stool Pattern: Normal stool pattern, normal urine pattern. Sleep Sleeping Difficulty: no difficulty sleeping Teen Anticipatory Guidance The following anticipatory guidance was reviewed during the visit: Nutrition: limit junk food/fast food and soft drinks. Safety: home safety. Social: avoid or limit screen time. Health: age appropriate dental care, age appropriate sleep habits, avoid situations where drugs and alcohol are present, how to resist peer pressure to smoke, drink, use drugs, contraception/practic e safe sex/ use condoms, talk with trusted adult if feeling sad or nervous and recognize and deal with stress. Screenings Previous Vaccine Reactions: No. Life events information was reviewed-no referral needed (social determinants screen negative) Tuberculosis Concerns: Negative Tuberculosis Screen Concerns: no TB Risk Factors Hearing Vision Concerns: The caregiver has no concerns about the patient's hearing. The caregiver has no concerns about the patient's vision. Hyperlipidemia Concerns: Negative Hyperlipidemia Screen Concerns: no parent or grandparent with ND angina peripheral or cerebrovascular disease <55 years, no parent or grandparent with sudden cardiac <55 years and no parent with cholesterol >240mg/dl Primary Care Review of Systems Objective Vital Signs 02/24/22 0933 BP: 115/74 Pulse: 72 Resp: 19 Temp: 36.7 C (98.1 F) TempSrc: Temporal Weight: 72.6 kg Height: 168.7 cm Body mass index is 25.51 kg/m . Physical Exam Constitutional: She appears well. She is active. No distress. HENT: Head: Atraumatic. Ears: Right Ear: Tympanic membrane and external ear normal. Left Ear: Tympanic membrane and external ear normal. Nose: Nose normal. No nasal discharge. Mouth/Throat: Mucous membranes are moist. Dentition is normal. No pharynx erythema. Oropharynx is clear. Eyes: Conjunctivae and EOM are normal. No strabismus. Pupils are equal, round, and reactive to light. Neck: Neck supple. Thyroid normal. Cardiovascular: Normal rate, regular rhythm, S1 normal and S2 normal. Pulses are palpable. Heart murmur not heard. Pulmonary/Chest: Effort normal and breath sounds normal. No respiratory distress. She has no wheezes. She has no rhonchi. She has no rales. Exhibits no deformity. Abdominal: Soft. Bowel sounds are normal. She exhibits no distension and no mass. There is no hepatosplenomegaly. There is no abdominal tenderness. Musculoskeletal: Cervical back: Normal range of motion and neck supple. Lumbar back: No scoliosis. General: Normal range of motion. Lymphadenopathy: No right anterior and posterior cervical adenopathy present. No (more content not included)... Normal [facility] Progress Noteon 10-21-2021 [employer] Interface Message Text Patient ID: Nestor Lopez is a 21 y.o. female. Her chief complaint(s) include: Mole (Wants a mole on her neck checked, it is 2 different colors) Assessment 1. Change in color of skin mole Plan Nestor was seen today for mole. Diagnoses and all orders for this visit: Change in color of skin mole - AMB Referral To Dermatology; Future Return if symptoms worsen or fail to improve. Referred to dermatology for further evaluation due to change in color of mole. Referral placed for [facility] dermatology. To call if any questions/concerns. Subjective HPI Comments: Mole on her neck for years. Noticed it was 2 different colors recently. Hasn't changed size. Not bothering her. She is accompanied by her mother. Independent history obtained from mother. Primary Care Review of Systems Objective Vital Signs 10/21/21 1357 Temp: 37.2 C (99 F) TempSrc: Temporal Weight: 72.3 kg There is no height or weight on file to calculate BMI. Physical Exam Constitutional: She appears well. She is active. No distress. HENT: Head: Atraumatic. Ears: Right Ear: External ear normal. Left Ear: External ear normal. Nose: No nasal discharge. Mouth/Throat: Mucous membranes are moist. Eyes: Right eyelid exhibits no discharge. Left eyelid exhibits no discharge. Right conjunctiva is not injected. Left conjunctiva is not injected. Neck: Neck supple. Cardiovascular: Normal rate and regular rhythm. Pulmonary/Chest: Effort normal. No respiratory distress. Musculoskeletal: Cervical back: Normal range of motion and neck supple. Neurological: She is alert. Skin: Capillary refill takes less than 3 seconds. Skin is warm. Skin is not pale. Findings: Lesion (armstrong mole with dark brown center on right neck near hairline) present. No rash. Vitals reviewed: Temperature 37.2 C (99 F), temperature source Temporal, weight 72.3 kg. Normal [facility] TSH with reflex T4FRon 07-20 TSH with reflex T4FR 1.065 uIU/mL Normal 0.350-5.500 [facility] Comment on above: Order Comment: With differential. Is this specimen being sent to an external lab?->No Release to patient->Automatic [id number]&Blood^\S\^Venous&Venous Performed By: #### T SHR #### [address] [address] Vitamin D 25 OHon 07-20-2021 25 OH Vitamin D 94 ng/mL Normal 30-100 [facility] Comment on above: Order Comment: With differential. Is this specimen being sent to an external lab?->No Release to patient->Automatic [id number]&Blood^\S\^Venous&Venous Result Comment: Refe rence ranges provided by [facility] are based on Endocrine Society Guidelines: Level Characterization <21 ng/mL Vitamin D deficiency 21-29 ng/mL Suboptimal Vitamin D status 30-100 ng/mL Optimal Vitamin D status >100 ng/mL Potentially toxic Vitamin D effects NOTE: New Reference Ranges effective 18 Performed By: #### V 25DH #### [address] [address] C-Reactive Proteinon 021 C-Reactive Protein 0.6 mg/dL Normal 0.0-1.0 [facility] Comment on above: Order Comment: With differential. Is this specimen being sent to an external lab?->No Release to patient->Automatic [id number]&Blood^\S\^Venous&Venous Result Comment: CRP determinations in neonates should be interpreted with caution. CRP may be elevated in circumstances not associated with inflammation (e.g. difficult delivery, pneumothorax). In premature neonates CRP levels may not rise to abnormal levels even if sepsis is present; some speculate that immature liver function decreases the ability to generate a CRP response. Performed By: #### C RP #### [address] [address] Comp Metabolic Panelon 07-19 Albumin [Mass/Vol] 3.9 g/dL Normal 3.5-5.0 [facility] Comment on above: Order Comment: With differential. Is this specimen being sent to an external lab?->No Release to patient->Automatic [id number]&Blood^\S\^Venous&Venous Performed By: #### C MP #### [address] [address] ALP [Catalytic activity/Vol] 33 U/L Low 35-104 [facility] Comment on above: Order Comment: With differential. Is this specimen being sent to an external lab?->No Release to patient->Automatic [id number]&Blood^\S\^Venous&Venous Performed By: #### C MP #### [address] [address] ALT [Catalytic activity/Vol] 22 U/L Normal 0-31 [facility] Comment on above: Order Comment: With differential. Is this specimen being sent to an external lab?->No Release to patient->Automatic 52651&Blood^\S\^Venous&Venous Performed By: #### C MP #### [address] [address] AST [Catalytic activity/Vol] 23 U/L Normal 0-31 [facility] Comment on above: Order Comment: With differential. Is this specimen being sent to an external lab?->No Release to patient->Automatic 60602&Blood^\S\^Venous&Venous Performed By: #### C MP #### [address] [address] Bili,Total 0.4 mg/dl Normal 0.0-1.0 [facility] Comment on above: Order Comment: With differential. Is this specimen being sent to an external lab?->No Release to patient->Automatic 93812&Blood^\S\^Venous&Venous Performed By: #### C MP #### [place] [address] Calcium [Mass/Vol] 8.9 mg/dL Normal 7.6-11.0 [facility] Comment on above: Order Comment: With differential. Is this specimen being sent to an external lab?->No Release to patient->Automatic 43223&Blood^\S\^Venous&Venous Performed By: #### C MP #### [place] [address] Chloride [Moles/Vol] 99 mmol/L Normal 96-108 [facility] Comment on above: Order Comment: With differential. Is this specimen being sent to an external lab?->No Release to patient->Automatic 14185&Blood^\S\^Venous&Venous Performed By: #### C MP #### [address] [address] CO2 [Moles/Vol] 25.7 mmol/L Normal 22.0-29.0 [facility] Comment on above: Order Comment: With differential. Is this specimen being sent to an external lab?->No Release to patient->Automatic 29864&Blood^\S\^Venous&Venous Performed By: #### C MP #### [address] [address] Creatinine [Mass/Vol] 0.78 mg/dL Normal 0.50-1.00 [facility] Comment on above: Order Comment: With differential. Is this specimen being sent to an external lab?->No Release to patient->Automatic 30835&Blood^\S\^Venous&Venous Result Comment: Premature 0.3-1.0 mg/dL Performed By: #### C MP #### [address] [address] Glucose [Mass/Vol] 95 mg/dL Normal 70-99 [facility] Comment on above: Order Comment: With differential. Is this specimen being sent to an external lab?->No Release to patient->Automatic 66370&Blood^\S\^Venous&Venous Result Comment: Criteria for Diagnosis of Diabetes(Effective 01/10/11): Fasting specimen (no caloric intake for at least 8 hours). <100 mg/dl Normal 100-125 mg/dl Increased Risk for Diabetes >125 mg/dl Diagnostic for Diabetes Random Glucose (any time of day without regard to last meal). >=200 mg/dl plus Classic Symptoms of Diabetes Performed By: #### C MP #### [place] [address] Potassium [Moles/Vol] 3.5 mmol/L Normal 3.3-5.1 [facility] Comment on above: Order Comment: With differential. Is this specimen being sent to an external lab?->No Release to patient->Automatic 96604&Blood^\S\^Venous&Venous Performed By: #### C MP #### [place] [address] Protein [Mass/Vol] 6.9 g/dL Normal 5.9-8.4 [facility] Comment on above: Order Comment: With differential. Is this specimen being sent to an external lab?->No Release to patient->Automatic 88092&Blood^\S\^Venous&Venous Performed By: #### C MP #### [place] [address] Sodium [Moles/Vol] 138 mmol/L Normal 133-145 [facility] Comment on above: Order Comment: With differential. Is this specimen being sent to an external lab?->No Release to patient->Automatic [id number]&Blood^\S\^Venous&Venous Performed By: #### C MP #### [place] [address] Urea nitrogen [Mass/Vol] 11 mg/dL Normal 4-19 [facility] Comment on above: Order Comment: With differential. Is this specimen being sent to an external lab?->No Release to patient->Automatic 90715&Blood^\S\^Venous&Venous Performed By: #### C MP #### [place] [address] Complete Blood Counton 07-19 Differential Complete Automated Normal [facility] Comment on above: Order Comment: With differential. Is this specimen being sent to an external lab?->No Release to patient->Automatic 11281&Blood^\S\^Venous&Venous Performed By: #### C BC #### [place] [address] Basophils/100 WBC (Bld) 0.70 % Normal 0.00-1.00 [facility] Comment on above: Order Comment: With differential. Is this specimen being sent to an external lab?->No Release to patient->Automatic [id number]&Blood^\S\^Venous&Venous Performed By: #### C BC #### [place] [address] Eosinophils/100 WBC (Bld) 2.50 % Normal 0.00-3.00 [facility] Comment on above: Order Comment: With differential. Is this specimen being sent to an external lab?->No Release to patient->Automatic 89092&Blood^\S\^Venous&Venous Performed By: #### C BC #### [place] [address] Erythrocyte distribution width (RBC) [Ratio] 12.2 % Normal 0.0-14.4 [facility] Comment on above: Order Comment: With differential. Is this specimen being sent to an external lab?->No Release to patient->Automatic [id number]&Blood^\S\^Venous&Venous Performed By: #### C BC #### [place] [address] Hematocrit (Bld) [Volume fraction] 39.3 % Normal 36.0-44.0 [facility] Comment on above: Order Comment: With differential. Is this specimen being sent to an external lab?->No Release to patient->Automatic [id number]&Blood^\S\^Venous&Venous Performed By: #### C BC #### [place] [address] Hemoglobin (Bld) [Mass/Vol] 12.9 g/dL Normal 12.0-15.0 [facility] Comment on above: Order Comment: With differential. Is this specimen being sent to an external lab?->No Release to patient->Automatic 43776&Blood^\S\^Venous&Venous Performed By: #### C BC #### [place] [address] Immature granulocytes/100 WBC (Bld) 0.30 % Normal [facility] Comment on above: Order Comment: With differential. Is this specimen being sent to an external lab?->No Release to patient->Automatic 63746&Blood^\S\^Venous&Venous Result Comment: Nancie ture Granulocyte Percent includes promyelocytes, myelocytes, and metamyelocytes. IG% > 1.0 indicates a left shift is present. With automated differentials, bands are included in the neutrophil count and not in the Immature Granulocyte Percent. Performed By: #### C BC #### [place] [address] Lymphocytes/100 WBC (Bld) 41.4 % Normal 24.0-44.0 [facility] Comment on above: Order Comment: With differential. Is this specimen being sent to an external lab?->No Release to patient->Automatic 15978&Blood^\S\^Venous&Venous Performed By: #### C BC #### [place] [address] MCH (RBC) [Entitic mass] 26.5 pg Normal 26.0-34.0 [facility] Comment on above: Order Comment: With differential. Is this specimen being sent to an external lab?->No Release to patient->Automatic 69799&Blood^\S\^Venous&Venous Performed By: #### C BC #### [address] [address] MCHC 32.8 % Normal 31.0-37.0 [facility] Comment on above: Order Comment: With differential. Is this specimen being sent to an external lab?->No Release to patient->Automatic 86476&Blood^\S\^Venous&Venous Performed By: #### C BC #### [place] [address] MCV (RBC) [Entitic vol] 80.9 fL Normal 80.0-100.0 [facility] Comment on above: Order Comment: With differential. Is this specimen being sent to an external lab?->No Release to patient->Automatic 92575&Blood^\S\^Venous&Venous Performed By: #### C BC #### [address] [address] Monocytes/100 WBC (Bld) 7.10 % High 3.00-6.00 [facility] Comment on above: Order Comment: With differential. Is this specimen being sent to an external lab?->No Release to patient->Automatic 19094&Blood^\S\^Venous&Venous Performed By: #### C BC #### [address] [address] Neutrophils (Bld) [#/Vol] 3.4 10*3/uL Normal 2.0-7.2 [facility] Comment on above: Order Comment: With differential. Is this specimen being sent to an external lab?->No Release to patient->Automatic 23944&Blood^\S\^Venous&Venous Performed By: #### C BC #### [address] [id number] Neutrophils/100 WBC (Bld) 48.0 % Normal 35.0-66.0 [facility] Comment on above: Order Comment: With differential. Is this specimen being sent to an external lab?->No Release to patient->Automatic 53045&Blood^\S\^Venous&Venous Performed By: #### C BC #### [address] [id number] Nucleated RBC/100 WBC (Bld) [Ratio] 0.0 % Normal -1.0-0.0 [facility] Comment on above: Order Comment: With differential. Is this specimen being sent to an external lab?->No Release to patient->Automatic 41944&Blood^\S\^Venous&Venous Performed By: #### C BC #### [address] [address] Platelet mean volume (Bld) [Entitic vol] 10.3 fL Normal [facility] Comment on above: Order Comment: With differential. Is this specimen being sent to an external lab?->No Release to patient->Automatic 92871&Blood^\S\^Venous&Venous Result Comment: MPV is platelet range and age dependent Performed By: #### C BC #### [address] [address] Platelets (Bld) [#/Vol] 279 10*3/uL Normal 150-450 [facility] Comment on above: Order Comment: With differential. Is this specimen being sent to an external lab?->No Release to patient->Automatic 08784&Blood^\S\^Venous&Venous Performed By: #### C BC #### [address] [address] RBC 4.86 10E12/L Normal 4.00-4.90 [facility] Comment on above: Order Comment: With differential. Is this specimen being sent to an external lab?->No Release to patient->Automatic 41074&Blood^\S\^Venous&Venous Performed By: #### C BC #### [facility] [address] [place] [address] WBC (Bld) [#/Vol] 7.2 10*3/uL Normal 4.5-11.0 [facility] Comment on above: Order Comment: With differential. Is this specimen being sent to an external lab?->No Release to patient->Automatic 30189&Blood^\S\^Venous&Venous Performed By: #### C BC #### [facility] [address] [place] [address] Progress Noteon 07-19-2021 [employer] Authentication Interface Message Text Patient ID: Nestor Lopez is a 21 y.o. female. Her chief complaint(s) include: Anxiety (Med ck) Assessment 1. Fatigue, unspecified type 2. Anxiety Plan Nestor was seen today for anxiety. Diagnoses and all orders for this visit: Fatigue, unspecified type - POCT Blood Glucose - Venipuncture - Complete Blood Count with Diff (Clinic Collect) - Comprehensive metabolic panel (Clinic Collect) - TSH with Reflex to T4, Free (Clinic Collect) - Vitamin D 25 hydroxy (Clinic Collect) - C-reactive protein (Clinic Collect) Anxiety Return if symptoms worsen or fail to improve. Anxiety has been much better. Discussed starting to come down on the lexapro dosing. Can decrease from 20 mg to 10 mg if desired. To call if any concerns while decreasing the dose. Will get labs to further assess the fatigue. Will call when results available. Subjective HPI Comments: Doing well. Stopped the trazodone, sleeping well at night. Tired during the day a lot- sleeps a lot. Always feels tired. Will sleep until noon, go to the store, nap for 2-3 hours, then want to go to bed early. Has been happening for months. No change in skin or hair. No temp intolerance. Eating okay. Mood has been good. Lexapro has been working great- wants to cut down since she has been feeling so good. No anxiety issues. She is accompanied by her mother. Independent history obtained from mother. Anxiety Primary Care Review of Systems Objective Vital Signs 07/19/21 1748 07/19/21 1751 BP: 131/80 126/80 Pulse: 77 76 Weight: 71.8 kg Height: 167.6 cm Body mass index is 25.55 kg/m . Physical Exam Constitutional: She appears well. She is active. No distress. HENT: Head: Atraumatic. Ears: Right Ear: Tympanic membrane and external ear normal. Left Ear: Tympanic membrane and external ear normal. Nose: No nasal discharge. Mouth/Throat: Mucous membranes are moist. No pharynx erythema. Eyes: Conjunctivae and EOM are normal. Pupils are equal, round, and reactive to light. Neck: Neck supple. Cardiovascular: Normal rate and regular rhythm. Heart murmur not heard. Pulmonary/Chest: Effort normal and breath sounds normal. There is normal air entry. No respiratory distress. She has no wheezes. She has no rhonchi. She has no rales. Abdominal: Soft. There is no abdominal tenderness. Musculoskeletal: Cervical back: Normal range of motion and neck supple. General: No tenderness. Lymphadenopathy: No right anterior and posterior cervical adenopathy present. No left anterior and posterior cervical adenopathy present. Neurological: She is alert. She exhibits normal muscle tone. Gait normal. Skin: Capillary refill takes less than 3 seconds. Skin is warm. Skin is not pale. Findings: No rash. Vitals reviewed: Blood pressure 126/80, pulse 76, height 167.6 cm, weight 71.8 kg, last menstrual period 07/15/2021. Last Result POCT Blood Glucose Collection Time: 07/19/21 6:28 PM Result Value Ref Range POCT Glucose, Blood 93 70 - 99 mg/dL Normal [facility] Microscopic observation Gram stain Nom (Vag fld)on 11-21-2019 Microscopic observation Smear Nom (Unsp spec) BACTERIAL VAGINOSIS RESULT: Stain results consistent with bacterial vaginosis. Abnormal [facility] Microscopic observation Smear Nom (Unsp spec) No Yeast observed [facility] Microscopic observation Smear Nom (Unsp spec) No Polymorphonuclear Leukocytes [facility] Specimen Request Swab [facility] Vital Signs Date Time Vital Sign Value Performing Clinician Facility 02-14-2025 10:040 Body height 167.[address] Betsy Coleman DO Work Phone: [facility] 02-14-2025 10:22-0400 Body mass index (BMI) [Ratio] 25 kg/m2 Dr. Betsy Coleman DO Work Phone: [facility] 02-14-2025 10:22-0400 Body temperature 97.6 [degF] Dr. Betsy Coleman DO Work Phone: [facility] 02-14-2025 10:22-0400 Body weight 70.[address] Betsy Coleman DO Work Phone: [facility] 02-14-2025 10:22-0400 Diastolic blood pressure 62 mm[Hg] Dr. Betsy Coleman DO Work Phone: 1(516)552-870741 [place] [address] 02-14-2025 10:22-0400 Heart rate 97 /min Dr. Betsy Coleman DO Work Phone: 8(472)552-404041 [place] [address] 02-14-2025 10:22-0400 Respiratory rate 16 /min Dr. Betsy Coleman DO Work Phone: 1(182)[phone] [place] [address] 02-14-2025 10:22-0400 SaO2% (BldA) [Mass fraction] 99 % Dr. Betsy Coleman DO Work Phone: [facility] 02-14-2025 10:22-0400 Systolic blood pressure 106 mm[Hg] Dr. Betsy Coleman DO Work Phone: [facility] 11-26-2024 15:25-0400 Body mass index (BMI) [Ratio] 25.02 kg/m2 Sandra Godoy MD Work Phone: [facility] 11-26-2024 15:25-0400 Body weight 70.31 kg Sandra Godoy MD Work Phone: [facility] 11-26-2024 15:25-0400 Diastolic blood pressure 70 mm[Hg] Sandra Godoy MD Work Phone: [facility] 11-26-2024 15:25-0400 Systolic blood pressure 120 mm[Hg] Sandra Godoy MD Work Phone: [facility] 11-15-2024 09:38-0400 Body height 167.[address] Betsy Coleman DO Work Phone: [facility] 11-15-2024 09:38-0400 Body mass index (BMI) [Ratio] 24.5 kg/m2 Dr. Betsy Coleman DO Work Phone: [facility] 11-15-2024 09:38-0400 Body temperature 97.9 [degF] Dr. Betsy Coleman DO Work Phone: [facility] 11-15-2024 09:38-0400 Body weight 69.[address] Betsy Coleman DO Work Phone: 0(177)[phone] [place] [address] 11-15-2024 09:38-0400 Diastolic blood pressure 68 mm[Hg] Dr. Betsy Coleman DO Work Phone: [facility] 11-15-2024 09:38-0400 Heart rate 96 /min Dr. Betsy Coleman DO Work Phone: 7(548)227-655441 [place] [address] 11-15-2024 09:38-0400 Respiratory rate 16 /min Dr. Betsy Coleman DO Work Phone: [facility] 11-15-2024 09:38-0400 SaO2% (BldA) [Mass fraction] 98 % Dr. Betsy Coleman DO Work Phone: [facility] 11-15-2024 09:38-0400 Systolic blood pressure 102 mm[Hg] Dr. Betsy Colemna DO Work Phone: [facility] 08-27-2024 10:18-0500 Body height 167.6 cm Sandra Godoy MD Work Phone: [facility] 08-27-2024 10:18-0500 Body mass index (BMI) [Ratio] 25.34 kg/m2 Sandra Godoy MD Work Phone: [facility] 08-27-2024 10:18-0500 Body weight 71.22 kg Sandra Godoy MD Work Phone: [facility] 08-27-2024 10:18-0500 Diastolic blood pressure 64 mm[Hg] Sandra Godoy MD Work Phone: [facility] 08-27-2024 10:18-0500 Systolic blood pressure 110 mm[Hg] Sandra Godoy MD Work Phone: [facility] 03-20-2023 11:36-0400 Body height 167.6 cm Berenice Ovalle MD Work Phone: [facility] 03-20-2023 11:36-0400 Body weight 68.95 kg Berenice Ovalle MD Work Phone: [facility] 03-20-2023 11:36-0400 Diastolic blood pressure 62 mm[Hg] Berenice Ovalle MD Work Phone: [facility] 03-20-2023 11:36-0400 Systolic blood pressure 112 mm[Hg] Berenice Ovalle MD Work Phone: [facility] 02-13-2023 14:22-0400 Diastolic blood pressure 70 mm[Hg] Terra Herrera APRN.CNM Work Phone: [facility] 02-13-2023 14:22-0400 Systolic blood pressure 110 mm[Hg] Terra Herrera APRN.CNMatty Work Phone: [facility] 02-06-2023 22:09-0400 Body temperature 99.4 [degF] [facility] 02-06-2023 22:09-0400 SaO2% (BldA) [Mass fraction] 98 % [facility] 02-06-2023 22:08-0400 Heart rate 119 /min [facility] 02-06-2023 22:04-0400 Diastolic blood pressure 95 mm[Hg] [facility] 02-06-2023 22:04-0400 Systolic blood pressure 142 mm[Hg] [facility] 02-06-2023 20:26-0400 Body height 167.64 cm [facility] 02-06-2023 20:26-0400 Body mass index (BMI) [Ratio] 27.1 kg/m2 [facility] 02-06-2023 20:26-0400 Body weight 76.2 kg [facility] 02-06-2023 09:26-0400 Body weight 76.2 kg Terra Herrera APRN.CNMatty Work Phone: [facility] 02-06-2023 09:26-0400 Diastolic blood pressure 78 mm[Hg] Terra Herrera APRN.CNMatty Work Phone: [facility] 02-06-2023 09:26-0400 Systolic blood pressure 114 mm[Hg] Terra Herrera APRN.CNM Work Phone: [facility] 02-04-2023 05:38-0400 Body height 167.64 cm [facility] 02-04-2023 05:38-0400 Body mass index (BMI) [Ratio] 27.7 kg/m2 [facility] 02-04-2023 05:38-0400 Body weight 78.01 kg [facility] 02-04-2023 05:13-0400 Body temperature 97.8 [degF] [facility] 02-04-2023 05:13-0400 Diastolic blood pressure 73 mm[Hg] [facility] 02-04-2023 05:13-0400 Heart rate 75 /min [facility] 02-04-2023 05:13-0400 SaO2% (BldA) [Mass fraction] 99 % [facility] 02-04-2023 05:13-0400 Systolic blood pressure 126 mm[Hg] [facility] 01-30-2023 11:10-0400 Body weight 77.56 kg Terra Herrera APRN.CNMatty Work Phone: [facility] 01-30-2023 11:10-0400 Diastolic blood pressure 72 mm[Hg] Terra Herrera NIGHT SHIFT SUPERVISOR.CNM Work Phone: [facility] 01-30-2023 11:10-0400 Systolic blood pressure 108 mm[Hg] Terra Herrera NIGHT SHIFT SUPERVISOR.CNM Work Phone: [facility] 12-06-2022 10:49-0400 Body weight 69.85 kg Terradoni Herrera NIGHT SHIFT SUPERVISOR.CNM Work Phone: [facility] 12-06-2022 10:49-0400 Diastolic blood pressure 68 mm[Hg] Terra Herrera NIGHT SHIFT SUPERVISOR.CNM Work Phone: [facility] 12-06-2022 10:49-0400 Systolic blood pressure 112 mm[Hg] Terra Herrera NIGHT SHIFT SUPERVISOR.CNM Work Phone: [facility] 11-01-2022 10:16-0400 Body weight 69.9 kg Partha Cornelius MD Work Phone: [facility] 11-01-2022 10:16-0400 Diastolic blood pressure 68 mm[Hg] Partha Cornelius MD Work Phone: [facility] 11-01-2022 10:16-0400 Systolic blood pressure 100 mm[Hg] Partha Cornelius MD Work Phone: [facility] 10-06-2022 09:45-0500 Body weight 71.22 kg Berenice Ovalle MD Work Phone: [facility] 10-06-2022 09:45-0500 Diastolic blood pressure 74 mm[Hg] Berenice Ovalle MD Work Phone: [facility] 10-06-2022 09:45-0500 Systolic blood pressure 118 mm[Hg] Berenice Ovalle MD Work Phone: [facility] 09-08-2022 10:29-0500 Body weight 73.03 kg Berenice Ovalle MD Work Phone: [facility] 09-08-2022 10:29-0500 Diastolic blood pressure 64 mm[Hg] Berenice Ovalle MD Work Phone: [facility] 09-08-2022 10:29-0500 Systolic blood pressure 112 mm[Hg] Berenice Ovalle MD Work Phone: [facility] 07-15-2022 09:27-0500 Body height 167.6 cm Bello Navarro MD Work Phone: [facility] 07-15-2022 09:27-0500 Body temperature 98.4 [degF] Bello Navarro MD Work Phone: [facility] 07-15-2022 09:27-0500 Body weight 72.58 kg Bello Navarro MD Work Phone: [facility] 07-15-2022 09:27-0500 Diastolic blood pressure 78 mm[Hg] Bello Navarro MD Work Phone: [facility] 07-15-2022 09:27-0500 Heart rate 113 /min Bello Navarro MD Work Phone: [facility] 07-15-2022 09:27-0500 SaO2% (BldA) [Mass fraction] 99 % Bello Navarro MD Work Phone: [facility] 07-15-2022 09:27-0500 Systolic blood pressure 130 mm[Hg] Bello Navarro MD Work Phone: [facility] 02-15-2022 09:30-0400 Body height 168.9 cm Dinorah Smith APRN.GASKET SUPERVISOR Work Phone: [facility] 02-15-2022 09:30-0400 Body weight 73.39 kg Dinorah Smith APRN.GASKET SUPERVISOR Work Phone: [facility] 02-15-2022 09:30-0400 Diastolic blood pressure 70 mm[Hg] Dinorah Smith APRN.GASKET SUPERVISOR Work Phone: [facility] 02-15-2022 09:30-0400 Systolic blood pressure 108 mm[Hg] Dinorah Smith APRN.GASKET SUPERVISOR Work Phone: [facility] 11-28-2021 08:43-0400 Body temperature 98.71 [degF] Jean Adams PA-C Work Phone: [facility] 11-28-2021 08:43-0400 Body weight 74.84 kg Jean Athy PA-C Work Phone: [facility] 11-28-2021 08:43-0400 Diastolic blood pressure 78 mm[Hg] Jean Athy PA-C Work Phone: [facility] 11-28-2021 08:43-0400 Heart rate 76 /min Jean Athy PA-C Work Phone: [facility] 11-28-2021 08:43-0400 Respiratory rate 18 /min Jean Athy PA-C Work Phone: [facility] 11-28-2021 08:43-0400 SaO2% (BldA) [Mass fraction] 98 % Jean Athy PA-C Work Phone: [facility] 11-28-2021 08:43-0400 Systolic blood pressure 116 mm[Hg] Jean Athy PA-C Work Phone: [facility] Encounters Encounter Date Encounter Type Care Provider Facility Start: 03-18-2025 ambulatory SANDRA GODOY Facility:[facility] Start: 03-18-2025 End: 03-18-2025 Subsequent hospital visit by physician [facility] Work Phone: Radiology Comment on above: Solitary cyst of lef t breast [N60.02] Start: 02-14-2025 End: 02-14-[address] Franklin Brown MD -[facility] Work Phone: Start: 02-14-2025 End: 02-14-[address] Betsy Coleman DO Work Phone: -[facility] Start: 12-17-2024 End: 12-17-2024 Refill Sandra Godoy MD Work Phone: OB/Gynecology Comment on above: Refill Request Start: 11-27-2024 End: 11-27-2024 ambulatory Sandra Godoy MD Work Phone: OB/Gynecology Comment on above: IUD Start: 11-26-2024 End: 11-26-2024 Patient encounter procedure Sandra Godoy MD Work Phone: OB/Gynecology Comment on above: Cyst of left breast (Primary Dx); Encounter for initial prescription of intrauterine contraceptive device (IUD); Family history of malignant neoplasm of breast Start: 11-26-2024 End: 11-26-2024 ambulatory SANDRA GODOY Facility:[facility] Start: 11-26-2024 End: 11-26-2024 Telephone encounter Sandra Godoy MD Work Phone: OB/Gynecology Comment on above: Appointment Start: 11-15-2024 End: 11-15-[address] Franklin Brown MD -[facility] Work Phone: Start: 11-15-2024 End: 11-15-[address] Betsy Coleman DO Work Phone: [facility] Work Phone: Start: 11-15-2024 End: 11-15-2024 ambulatory Franklin Brown Facility:[facility] Start: 09-19-2024 End: 09-19-2024 Refill Sandra Godoy MD Work Phone: OB/Gynecology Comment on above: Med Change Request Start: 09-18-2024 End: 09-18-2024 ambulatory SANDRA GODOY Facility:[facility] Start: 09-18-2024 End: 09-18-2024 Subsequent hospital visit by physician [facility] Work Phone: Radiology Comment on above: Mass of upper inner quadrant of left breast [N63.22] Start: 09-18-2024 End: 11-18-2024 Follow-up encounter Sandra Godoy MD Work Phone: OB/Gynecology Start: 08-27-2024 End: 08-27-2024 ambulatory SANDRA GODOY Facility:[facility] Start: 08-27-2024 End: 08-27-2024 Patient encounter procedure Sandra Godoy MD Work Phone: OB/Gynecology Comment on above: Encounter for gyneco logical examination (general) (routine) without abnormal findings (Primary Dx); Anxiety neurosis; Mass of upper inner quadrant of left breast Start: 08-27-2024 End: 08-27-2024 Patient encounter status Sandra Godoy MD Work Phone: [facility] Start: 03-20-2023 End: 03-20-2023 Patient encounter procedure Berenice Ovalle MD Work Phone: OB/Gynecology Comment on above: care and examination (Primary Dx); Encounter for screening for lipoid disorders Start: 02-13-2023 End: 02-13-2023 Patient encounter procedure Terra Herrera APRN.CNM Work Phone: OB/Gynecology Comment on above: Dizziness (Primary D x) Start: 02-07-2023 End: 02-07-2023 ambulatory UNKNOWN PROVIDER Facility:[facility] Start: 02-07-2023 End: 02-10-2023 Evaluation and management of inpatient ARELI WHITEHEAD Facility:[facility] Start: 02-06-2023 End: 02-06-2023 ambulatory [facility] Work Phone: Start: 02-06-2023 End: 02-06-2023 Patient encounter procedure [facility] Work Phone: Start: 02-06-2023 End: 02-06-2023 Patient encounter procedure Terra Herrera APRN.CNM Work Phone: OB/Gynecology Comment on above: 29 weeks gestation o f (Primary Dx) Start: 02-04-2023 End: 02-04-2023 ambulatory [facility] Work Phone: Start: 02-04-2023 End: 02-04-2023 Patient encounter procedure [facility] Work Phone: Start: 02-02-2023 Telephone encounter Mary cameron MD Work Phone: OB/Gynecology Comment on above: OB Pain Start: 02-01-2023 Telephone encounter Terra najera APRN.CNM Work Phone: OB/Gynecology Comment on above: Orders Start: 02-01-2023 End: 02-01-2023 Nursing evaluation of patient and report Nurse Band Bias Machine Operator [facility] Work Phone: OB/Gynecology Comment on above: Rh negative state in antepartum period (Primary Dx); Need for vaccination Start: 01-30-2023 Telephone encounter Shea arevalo APRN.CNM Work Phone: OB/Gynecology Comment on above: Results Start: 01-30-2023 End: 01-30-2023 Patient encounter procedure Terra Herrera APRN.CNM Work Phone: OB/Gynecology Comment on above: 28 weeks gestation o f (Primary Dx) Start: 01-24-2023 Telephone encounter Mary cameron MD Work Phone: OB/Gynecology Comment on above: Appointment Start: 12-06-2022 End: 12-06-2022 Patient encounter procedure Terra Herrera APRN.CNM Work Phone: OB/Gynecology Comment on above: 20 weeks gestation o f (Primary Dx) Encounter for anatomic survey (Primary Dx); Encounter for supervision of normal first in first trimester; 20 weeks gestation of Start: 11-01-2022 End: 11-01-2022 Patient encounter procedure Partha Cornelius MD Work Phone: OB/Gynecology Comment on above: Encounter for superv ision of normal first in second trimester (Primary Dx); 15 weeks gestation of Start: 10-13-2022 Telephone encounter Berenice Ovalle MD Work Phone: Maternal Medicine Comment on above: NIPT results Start: 10-06-2022 End: 10-06-2022 Patient encounter procedure Berenice Ovalle MD Work Phone: OB/Gynecology Comment on above: 11 weeks gestation o f (Primary Dx); Patient request for diagnostic testing; Encounter for supervision of normal first in first trimester Start: 10-06-2022 End: 10-06-2022 Patient requested procedure Berenice Ovalle MD Work Phone: OB/Gynecology Start: 09-08-2022 End: 09-08-2022 Patient encounter procedure Berenice Ovalle MD Work Phone: OB/Gynecology Comment on above: Encounter for prenat al care in first trimester of first (Primary Dx); Encounter for supervision of normal first in first trimester; 7 weeks gestation of Start: 09-08-2022 End: 09-08-2022 Nursing evaluation of [facility] and [facility] Work Phone: [facility]Gy[facility]cology Comment on above: Supervision of renetta l first , antepartum (Primary Dx); History of anxiety; Patient request for diagnostic testing Start: 09-08-2022 End: 02-06-2023 Patient requested procedure Nurse [facility] Work Phone: OB/Gynecology Start: 08-16-2022 Telephone encounter Berenice Ovalle MD Work Phone: OB/Gynecology Comment on above: Appointment Start: 07-15-2022 End: 07-15-2022 Patient encounter procedure Bello Navarro MD Work Phone: General Surgery Comment on above: Mass of upper inner quadrant of left breast (Primary Dx) Start: 02-15-2022 End: 02-15-2022 Patient encounter procedure Dinorah Smith APRN.GASKET SUPERVISOR Work Phone: OB/Gynecology Comment on above: Encounter for gyneco logical examination without abnormal finding (Primary Dx); Surveillance for control, oral contraceptives Start: 02-15-2022 End: 02-15-2022 Patient encounter status Dinorah Smith APRN.GASKET SUPERVISOR Work Phone: OB/Gynecology Start: 11-28-2021 End: 11-28-2021 Patient encounter procedure Jean Adams PA-C Work Phone: [facility] Comment on above: Other infective acut e otitis externa of left ear (Primary Dx) Start: 11-20-2019 Orders Only Dinorah LOERA RN.GASKET SUPERVISOR Work Phone: OB/Gynecology Comment on above: Vaginal odor; Acute vaginitis Procedures Date Procedure Procedure Detail Performing Clinician Start: 03-18-2025 Us breast uni real t sahra with image limited Sandra Godoy MD Work Phone: Start: 11-15-2024 Vitamin D, 25-hydrox y measurement Dr. Betsy Coleman DO Work Phone: Comment on above: Vitamin D StatusDefi ciency: <20 ng/mL (50nmol/L)Insufficiency: 20-30 ng/mL (50-75 nmol/L)Sufficiency: 30-100 ng/mL (75-250 nmol/L)Toxicity: >100 ng/mL (>250 nmol/L) Start: 09-18-2024 Us breast uni real t sahra with image limited Sandra Godoy MD Work Phone: Start: 02-07-2023 Antibody screen ARELI ND LES Comment on above: Order Comment: Speci men Type: BLOOD SPECIMEN Ordering Facility: [facility] Address: [address] [place], [place] [id number] Performed By: #### 5 [id number] #### [facility] CLIA [id number] [address] [place] [address] [place] Start: 02-06-2023 URINE OB DIP B/O Iván Herrera APRN.CNMatty Work Phone: Start: 02-04-2023 Urine culture Start: 01-30-2023 URINE OB DIP B/O Iván Herrera APRN.CNMatty Work Phone: Start: 12-06-2022 URINE OB DIP B/O Iván Herrera APRN.CNMatty Work Phone: Start: 12-06-2022 Us preg uterus after 1st trimest 08/07 gestation Berenice Ovalle MD Work Phone: Start: 11-01-2022 URINE OB DIP B/O Partha Cornelius MD Work Phone: Start: 10-06-2022 URINE OB DIP B/O Bharath Ovalle MD Work Phone: Start: 11-20-2019 Smr prim src gram/gi emsa stain bct fungi/cell Dinorah Smith APRN.GASKET SUPERVISOR Work Phone: Start: 03-17-2017 Adult depression scr eening assessment Jean Adams PA-C Work Phone: Plan of Treatment Date Care Activity Detail Author Start: 02-01-2033 Urine microalbumin profile [facility] Start: 09-08-2025 PAP TESTING PAP TESTING [facility] Start: 09-08-2025 Screening for malign ant neoplasm of cervix Cervical Cancer Screening [facility] Start: 08-28-2025 End: 08-28-2025 Patient encounter procedure 08/28/2025 11:20 AM EST Office Visit OB/Gynecology [address] [place] [id number] Sandra Vizcaino MD [address] [place] [id number] ANNUAL OB/Gynecology Comment on above: ANNUAL Start: 04-07-2025 Influenza vaccination [facility] Start: 03-18-2025 End: 10-18-2025 US Breast - left limited US BREAST LTD LEFT Radiology Routine Solitary cyst of left breast Expected: 03/18/2025 (Approximate), Expires: 10/18/2025 [facility] Work Phone: Comment on above: Expected: 03/18/2025 (Approximate), Expires: 10/18/2025 Start: 03-18-2025 End: 03-18-2025 Patient encounter procedure 03/18/2025 8:30 AM EDT Appointment Radiology [address] [place] [id number] Solitary cyst of left breast [N60.02] Radiology Comment on above: Solitary cyst of lef t breast [N60.02] Start: 09-18-2024 End: 09-18-2024 Patient encounter procedure 09/18/2024 10:30 AM EST Appointment Radiology [address] [place] [address] Mass of upper inner quadrant of left breast [N63.22] Radiology Comment on above: Mass of upper inner quadrant of left breast [N63.22] Start: 04-07-2024 Covid-19 Vaccine () Covid-19 Vaccine () [facility] Start: 04-07-2024 Influenza vaccination Influenza Vacc ine (#1) [facility] Start: 09-08-2023 CHLAMYDIA SCREENING (18-24) CHLAMYDIA SCREENING (18-24) [facility] Start: 09-08-2023 GC (GONORRHEA) SCREENING (18-24) GC (GONORRHEA) SCREENING (18-24) [facility] Start: 09-08-2023 Screening for Chlamy tere trachomatis Chlamydia Screening () [facility] Start: 05-11-2023 Urine microalbumin profile DTAP,TDAP,TD (7 - Td or Tdap) [facility] Start: 04-07-2023 Influenza vaccination INFLUENZA (#1) [facility] Start: 03-20-2023 End: 05-20-2023 LIPID PANEL, NONFASTING LIPID PANEL, NONFASTING Lab Routine Encounter for screening for lipoid disorders Expected: 03/20/2023, Expires: 05/20/2023 [facility] Work Phone: Comment on above: Expected: 03/20/2023 , Expires: 05/20/2023 Start: 02-06-2023 Nonstress test [facility] Start: 02-06-2023 Obstetric monitoring [facility] Start: 02-06-2023 Vital signs measurements [facility] Start: 02-06-2023 [facility] Start: 02-04-2023 Bacteria identified in Urine by Culture Urine Culture [facility] Start: 02-04-2023 Nonstress test [facility] Start: 02-04-2023 End: 02-04-2023 [facility] Start: 02-04-2023 Obstetric monitoring [facility] Start: 02-04-2023 Vital signs measurements [facility] Start: 02-04-2023 Patient discharge [facility] Start: 01-30-2023 End: 04-01-2023 GEST GLUC JENNA, 3-HR, 100 GM, FASTING GEST GLUC JENNA, 3-HR, 100 GM, FASTING Lab Routine Abnormal glucose in , antepartum Expected: 01/30/2023, Expires: 04/01/2023 [facility] Work Phone: Comment on above: Expected: 01/30/2023 , Expires: 04/01/2023 Start: 01-24-2023 End: 03-26-2023 TYPE + SCREEN TYPE + SCREEN Blood Bank Routine Rh negative state in antepartum period, first trimester Expected: 01/24/2023, Expires: 03/26/2023 [facility] Work Phone: Comment on above: Expected: 01/24/2023 , Expires: 03/26/2023 Start: 11-01-2022 End: 01-01-2023 ALPHA FETOPRO MATERNAL [facility] Work Phone: Comment on above: Expected: 11/01/2022 , Expires: 01/01/2023 Start: 10-06-2022 End: 12-06-2022 Chromosome 21 trisomy [Presence] in Blood or Tissue by Cytogenetics [facility] Work Phone: Comment on above: Expected: 10/06/2022 , Expires: 12/06/2022 Start: 10-06-2022 End: 12-06-2022 CYSTIC FIBROSIS PATHOGENIC VARIANT ANALYSIS [facility] Work Phone: Comment on above: Expected: 10/06/2022 , Expires: 12/06/2022 Start: 10-06-2022 End: 10-07-2023 OBSTETRIC ULTRASOUND WHI OBSTETRIC ULTRASOUND WHI Anc Imaging Routine 11 weeks gestation of Patient request for diagnostic testing Encounter for supervision of normal first in first trimester Expected: 10/06/2022, Expires: 10/07/2023 [facility] Work Phone: Comment on above: Expected: 10/06/2022 , Expires: 10/07/2023 Start: 09-08-2022 End: 11-08-2022 CBC panel - Blood by Automated count CBC Lab Routine Encounter for care in first trimester of first Expected: 09/08/2022, Expires: 11/08/2022 [facility] Work Phone: Comment on above: Expected: 09/08/2022 , Expires: 11/08/2022 Start: 09-08-2022 End: 11-08-2022 Hepatitis B virus surface Ag [Presence] in Serum HEP B SURF AG SCRN Lab Routine Encounter for care in first trimester of first Expected: 09/08/2022, Expires: 11/08/2022 [facility] Work Phone: Comment on above: Expected: 09/08/2022 , Expires: 11/08/2022 Start: 09-08-2022 End: 11-08-2022 Hepatitis C virus Ab [Presence] in Serum HEP C AB IA W/CONF SCRN Lab Routine Encounter for care in first trimester of first Expected: 09/08/2022, Expires: 11/08/2022 [facility] Work Phone: Comment on above: Expected: 09/08/2022 , Expires: 11/08/2022 Start: 09-08-2022 End: 11-08-2022 HIV 1+2 Ab [Presence] in Serum or Plasma by Immunoassay HIV 1 2 COMBO(AG/AB),WITH REFLEX TO DIFFERENTIATION Lab Routine Encounter for care in first trimester of first Expected: 09/08/2022, Expires: 11/08/2022 [facility] Work Phone: Comment on above: Expected: 09/08/2022 , Expires: 11/08/2022 Start: 09-08-2022 End: 11-08-2022 RUBELLA IGG AB RUBELLA IGG AB Lab Routine Encounter for care in first trimester of first Expected: 09/08/2022, Expires: 11/08/2022 [facility] Work Phone: Comment on above: Expected: 09/08/2022 , Expires: 11/08/2022 Start: 09-08-2022 End: 11-08-2022 SYPHILIS TOTAL W/REFLEX SYPHILIS TOTAL W/REFLEX Lab Routine Encounter for care in first trimester of first Expected: 09/08/2022, Expires: 11/08/2022 [facility] Work Phone: Comment on above: Expected: 09/08/2022 , Expires: 11/08/2022 Start: 09-08-2022 End: 11-08-2022 TYPE + SCREEN TYPE + SCREEN Blood Bank Routine Encounter for care in first trimester of first Expected: 09/08/2022, Expires: 11/08/2022 [facility] Work Phone: Comment on above: Expected: 09/08/2022 , Expires: 11/08/2022 Start: 08-07-2022 DEPRESSION ASSESSMENT DEPRESSION ASS ESSMENT [facility] Start: 2022 PAP TESTING PAP TESTING [facility] Start: 04-07-2022 Influenza vaccination [facility] Start: 10-16-2021 COVID-19 VACCINE (3 - Booster for Pfizer series) COVID-19 VACCINE (3 - Booster for Pfizer series) [facility] Start: 08-07-2021 DEPRESSION ASSESSMENT DEPRESSION ASS ESSMENT [facility] Start: 07-13-2021 COVID-19 VACCINE (3 - Booster for Pfizer series) COVID-19 VACCINE (3 - Booster for Pfizer series) [facility] Start: 07-13-2021 COVID-19 VACCINE (3 - Pfizer series) COVID-19 VACCINE (3 - Pfizer series) [facility] Start: 11-19-2020 CHLAMYDIA SCREENING (18-24) CHLAMYDIA SCREENING (18-24) [facility] Start: 11-19-2020 GC (GONORRHEA) SCREENING (18-24) GC (GONORRHEA) SCREENING (18-24) [facility] Start: 2019 Anxiety Screening Anxiety Screening [facility] Start: 2019 Depression Screening Depression Scre ening [facility] Start: 2019 HEPATITIS C SCREENING HEPATITIS C SC REENING [facility] Start: 2019 HIV SCREENING HIV SCREENING [facility] Start: 03-17-2018 Adult depression screening assessment DEPRESSION SCREENING [facility] Start: 2015 PEDS TO ADULT TRANSITION ANNUAL ASSESSMENT PEDS TO ADULT TRANSITION ANNUAL ASSESSMENT [facility] Start: 2013 PEDS TO ADULT TRANSITION INITIAL DISCUSSION PEDS TO ADULT TRANSITION INITIAL DISCUSSION [facility] Start: 2011 MENINGOCOCCAL B: Consider based on risk (1 of 2 - Risk Bexsero 2-dose series) MENINGOCOCCAL B: Consider based on risk (1 of 2 - Risk Bexsero 2-dose series) [facility] Bacteria identified in Urine by Culture URINE CULTURE Microbiology Routine Encounter for care in first trimester of first 09/08/2022 11:11 AM [facility] Work Phone: Bacteria identified in Urine by Culture URINE CULTURE Microbiology Routine 29 weeks gestation of 02/06/2023 10:48 AM EDT [facility] Work Phone: CBC W Auto Different ial panel - Blood [facility] Chlamydia trachomatis+Neisseria gonorrhoeae DNA [Presence] in Unspecified specimen by REGGIE with probe detection GC/CHLAMYDIA DNA DET Lab Routine Encounter for care in first trimester of first 09/08/2022 11:11 AM [facility] Work Phone: Comprehensive metabo lic 2000 panel - Serum or Plasma [facility] Insertion intrauteri ne device iud INSERT INTRAUTERINE DEVICE Procedures Routine Encounter for initial prescription of intrauterine contraceptive device (IUD) Ordered: 11/26/2024 [facility] Work Phone: Comment on above: Ordered: 11/26/2024 Insertion intrauteri ne device iud INSERT INTRAUTERINE DEVICE Procedures Routine Encounter for initial prescription of intrauterine contraceptive device (IUD) Ordered: 11/27/2024 [facility] Work Phone: Comment on above: Ordered: 11/27/2024 PAP FLUID CERVICAL SCREENING PAP FLUID CERVICAL SCREENING Lab Routine Encounter for care in first trimester of first 09/08/2022 11:11 AM [facility] Work Phone: Patient Education Kick Counts ED False Labor OB Triage: Return to Hospital or Notify Physician if you Experience: [facility] Work Phone: Patient referral [facility] Work Phone: T4 free measurement [facility] Thyroid stimulating hormone measurement [facility] End: 09-26-2025 US Breast - left limited US BREAST LTD LEFT Radiology Routine Mass of upper inner quadrant of left breast 1 Occurrences starting 08/27/2024 until 09/26/2025 [facility] Work Phone: Comment on above: 1 Occurrences starti ng 08/27/2024 until 09/26/2025 End: 08-14-2023 Us breast uni real time with image limited US BREAST LTD LT Radiology Routine Mass of upper inner quadrant of left breast 1 Occurrences starting 07/15/2022 until 08/14/2023 [facility] Work Phone: Comment on above: 1 Occurrences starti ng 07/15/2022 until 08/14/2023 [facility] c [facility] c [facility] c [facility] c [facility] c [facility] c [facility] c [facility] c [facility] c [facility] c [place] [facility] c Immunizations Immunization Date Immunization Notes Care Provider Paulino mccann 02-07-2023 RHO(D) immune globul in- IV or IM Terra Herrera NIGHT SHIFT SUPERVISOR.CNM Work Phone: [facility] 02-01-2023 RHO(D) immune globul in- IV or IM Terra Herrera NIGHT SHIFT SUPERVISOR.CNM Work Phone: [facility] 02-01-2023 tetanus toxoid, redu miguelina diphtheria toxoid, and acellular pertussis vaccine, adsorbed Terra Herrera NIGHT SHIFT SUPERVISOR.CNM Work Phone: [facility] 01-30-2023 tetanus toxoid, redu miguelina diphtheria toxoid, and acellular pertussis vaccine, adsorbed [facility] 05-13-2022 Influenza, injectabl e, Madin Yarelis Canine Kidney, quadrivalent with preservative Nurse Wstr Work Phone: [facility] Work Phone: 05-13-2022 Influenza, injectabl e, Madin Yarelis Canine Kidney, preservative free, quadrivalent Nurse Wstr Work Phone: [facility] Work Phone: 05-13-2022 influenza virus vacc ine, unspecified formulation Sandra Godoy MD Work Phone: [facility] 04-16-2021 COVID-19 vaccine, ag e 12+ yr ([place] - PURPLE TOP) Jean Adams PA-C Work Phone: [facility] Work Phone: 11-20-2020 meningococcal B vacc ine, recombinant, OMV, adjuvanted Nurse Wstr Work Phone: [facility] Work Phone: 04-16-2019 hepatitis A vaccine, pediatric/adolescent dosage, 2 dose schedule Nurse Wstr Work Phone: [facility] Work Phone: 04-16-2019 meningococcal B vacc ine, recombinant, OMV, adjuvanted Nurse Wstr Work Phone: [facility] Work Phone: 03-27-2018 hepatitis A vaccine, pediatric/adolescent dosage, 2 dose schedule Nurse Wstr Work Phone: [facility] Work Phone: 03-27-2018 meningococcal polysaccharide (groups A, C, Y and W-135) diphtheria toxoid conjugate vaccine (MCV4P) Nurse Wstr Work Phone: [facility] Work Phone: 03-17-2017 Human Papillomavirus 9-valent vaccine Jean Adams PA-C Work Phone: [facility] 03-15-2016 Human Papillomavirus 9-valent vaccine eJan Adams PA-C Work Phone: [facility] Work Phone: 08-27-2014 influenza, live, intranasal, quadrivalent Jean Adams PA-C Work Phone: [facility] 02-28-2014 meningococcal polysaccharide (groups A, C, Y and W-135) diphtheria toxoid conjugate vaccine (MCV4P) Jean Adams PA-C Work Phone: [facility] 02-28-2014 varicella virus vaccine Jean PHILLIPS-C Work Phone: [facility] 05-11-2013 human papilloma viru s vaccine, quadrivalent Jean PHILLIPS-C Work Phone: [facility] 05-11-2013 influenza virus vacc ine, live, attenuated, for intranasal use Jean Adams PA-C Work Phone: [facility] 05-11-2013 tetanus toxoid, redu miguelina diphtheria toxoid, and acellular pertussis vaccine, adsorbed Jean Adams PA-C Work Phone: [facility] 05-05-2012 influenza virus vacc ine, live, attenuated, for intranasal use Jean Adams PA-C Work Phone: [facility] 06-23-2011 influenza virus vacc ine, live, attenuated, for intranasal use Jean Adams PA-C Work Phone: [facility] 06-11-2010 influenza virus vacc ine, live, attenuated, for intranasal use Jean Adams PA-C Work Phone: [facility] 10-03-2005 diphtheria, tetanus toxoids and acellular pertussis vaccine Jean PHILLIPS-C Work Phone: [facility] Work Phone: 10-03-2005 measles, mumps and rubella virus vaccine Jean PHILLIPS-C Work Phone: [facility] Work Phone: 10-03-2005 poliovirus vaccine, inactivated Jean PHILLIPS-[facility] Work Phone: [facility] Work Phone: 05-27-2003 pneumococcal conjuga te vaccine, 13 valent Jean Adams PA-C Work Phone: [facility] Work Phone: 10-10-2002 diphtheria, tetanus toxoids and acellular pertussis vaccine Jean Adams PA-C Work Phone: [facility] Work Phone: 10-10-2002 diphtheria, tetanus toxoids and acellular pertussis vaccine, unspecified formulation Nurse Rust Work Phone: [facility] Work Phone: 10-10-2002 varicella virus vaccine Jean Adams PA-C Work Phone: [facility] Work Phone: 05-27-2002 haemophilus influenz ae type b conjugate and Hepatitis B vaccine Nurse tr Work Phone: [facility] Work Phone: 05-27-2002 haemophilus influenz ae type b vaccine, HbOC conjugate Jean PHILLIPS-C Work Phone: [facility] Work Phone: 05-27-2002 haemophilus influenz ae type b vaccine, PRP-T conjugate Nurse tr Work Phone: [facility] Work Phone: 05-27-2002 hepatitis B vaccine, pediatric or pediatric/adolescent dosage Jean ARNOLDC Work Phone: [facility] Work Phone: 05-27-2002 measles, mumps and rubella virus vaccine Jean ARNOLDC Work Phone: [facility] Work Phone: 05-27-2002 poliovirus vaccine, inactivated Jean ARNOLDC Work Phone: [facility] Work Phone: 01-02-2002 diphtheria, tetanus toxoids and acellular pertussis vaccine Jean ARNOLDC Work Phone: [facility] Work Phone: 01-02-2002 haemophilus influenz ae type b vaccine, HbOC conjugate Jean PHILLIPS-C Work Phone: [facility] Work Phone: 01-02-2002 haemophilus influenz ae type b vaccine, PRP-T conjugate Nurse tr Work Phone: [facility] Work Phone: 01-02-2002 pneumococcal conjuga te vaccine, 13 valent Jean Césary PA-C Work Phone: [facility] Work Phone: 2001 diphtheria, tetanus toxoids and acellular pertussis vaccine Jean Athy PA-C Work Phone: [facility] Work Phone: 2001 haemophilus influenz ae type b vaccine, HbOC conjugate Jean Athy PA-C Work Phone: [facility] Work Phone: 2001 haemophilus influenz ae type b vaccine, PRP-T conjugate Nurse Wstr Work Phone: [facility] Work Phone: 2001 pneumococcal conjuga te vaccine, 13 valent Jean Césary PA-C Work Phone: [facility] Work Phone: 2001 poliovirus vaccine, inactivated Jean Adams PA-C Work Phone: [facility] Work Phone: 2001 diphtheria, tetanus toxoids and acellular pertussis vaccine Jean Athy PA-C Work Phone: [facility] Work Phone: 2001 haemophilus influenz ae type b vaccine, HbOC conjugate Jean Lindseyy PA-C Work Phone: [facility] Work Phone: 2001 haemophilus influenz ae type b vaccine, PRP-T conjugate Nurse Wstr Work Phone: [facility] Work Phone: 2001 hepatitis B vaccine, pediatric or pediatric/adolescent dosage Jean Athy PA-C Work Phone: [facility] Work Phone: 2001 pneumococcal conjuga te vaccine, 13 valent Jean Césary PA-C Work Phone: [facility] Work Phone: 2001 poliovirus vaccine, inactivated Jean Adams PA-C Work Phone: [facility] Work Phone: 2001 diphtheria, tetanus toxoids and acellular pertussis vaccine, unspecified formulation Nurse Wstr Work Phone: [facility] Work Phone: 2001 haemophilus influenz ae type b conjugate and Hepatitis B vaccine Nurse Wstr Work Phone: [facility] Work Phone: 2001 pneumococcal conjuga te vaccine, 7 valent Nurse Wstr Work Phone: [facility] Work Phone: 2001 hepatitis B vaccine, pediatric or pediatric/adolescent dosage Jean Adams PA-C Work Phone: [facility] Work Phone: Payers Date Payer Category Payer Self-pay [id number] 2024 Unknown [id number] 2022 Medicaid [id number] 2022 Private Health Insurance [id number] 2019 Unknown [employer] CARD PPO OOS [id number] 2019-Present [phone] [facility] [address] [place] [address] PPO [id number] 2019 Unknown [id number] 2009 Unknown [id number] 2001 Unknown [id number] Private Health Insurance [id number] Unknown 63 Unknown 63 Unknown [id number] Social History Date Type Detail Facility Start: 05-07-2021 End: 07-15-2022 Tobacco smoking status NHIS Never smoked tobacco [facility] Start: 11-28-2021 End: 08-27-2024 Alcohol intake Lifetime non-drinker (finding) [facility] Start: 01-28-2021 History SDOH Alcohol Frequency 1 [facility] Start: 2001 Sex Assigned At Female [facility] Start: 10-21-2019 End: 11-28-2021 Exposure to SARS-CoV-2 (event) Not sure [facility] Start: 07-15-2022 Tobacco use and exposure Smokeless tobacco non-user [facility] Start: 09-08-2022 Education 21 [facility] Start: 08-01-2022 [facility] Start: 05-07-2021 Tobacco smoking stat us MIIS Unknown if ever smoked [facility] Start: 12-14-2020 Non-smoker [facility] Start: 11-20-2019 Alcohol intake Not Asked [facility] Start: 02-13-2023 End: 11-26-2024 History of Social function [facility] Start: 02-13-2023 End: 11-26-2024 Tobacco use panel [facility] Work Phone: Start: 07-08-2012 National Score (1-10 0), lower number is lower risk 48 [facility] Start: 11-09-2020 Gender identity Identifies as female gender (finding) [facility] Start: 11-09-2020 Sexual orientation Heterosexual (fin ding) [facility] Start: 11-21-2024 Sex Female (finding[place] [facility] [place] Patient Goal Desired Activity /State Personal health goal Functional Status Date Assessment Result Facility 02-10-2023 Are you deaf, or do you have serious difficulty hearing No 02/10/2023 2:30 PM EDT Sofia Royal, CLINT No [facility] 02-10-2023 Are you blind, or do you have serious difficulty seeing, even when wearing glasses No 02/10/2023 2:30 PM EDT Sofia Royal, [place] No [facility] 02-10-2023 Do you have serious difficulty walking or climbing stairs No 02/10/2023 2:30 PM EDT Sofia Royal, CL[place] No [facility] 02-10-2023 Do you have difficul ty dressing or bathing No 02/10/2023 2:30 PM EDT Sofia Royal, CL[place] No [facility] 02-10-2023 Because of a physica l, mental, or emotional condition, do you have difficulty doing errands alone such as visiting a physician's office or shopping No 02/10/2023 2:30 PM EDT Sofia Royal, CL[place] No [facility] Mental Status Date Assessment Result Facility 02-10-2023 Because of a physica l, mental, or emotional condition, do you have serious difficulty concentrating, remembering, or making decisions No 02/10/2023 2:30 PM EDSofia Chavira RN No [facility] Clinical Notes 05-01-2014 to 03-18-2025 Vonnie Bond, KELLIEID - 03/18/2025 8:30 AM EDTTelephone Encounter - Sandra Vizcaino MD - 11/27/2024 11:05 AM EDTTelephone Encounter - Sandra Vizcaino MD - 11/27/2024 11:05 AM EDT Note Date & Type Note Facility 03-18-2025 History of Presen t illness Narrative Radiology Service Progress Note PATIENT NAME: Nestor Lopez DATE OF SERVICE: March 18, 2025 TIME: 9:16 AM PATIENT IDENTITY VERIFICATION COMPLETED USING TWO (2) IDENTIFIERS: Name and Date of confirmed by patient verbally. FALL SCREENING: Has the patient had 2 falls in the last year or 1 fall with injury or currently using an Ambulatory Assistive Device (Walker, Cane, Wheelchair, Crutches, etc.)? No PATIENT GENDER DATA: Assigned female at . status: : No status: NO. PATIENT RELEVANT IMPLANT DATA REVIEWED: Not Applicable PATIENT PRESENTS WITH AN IMPLANTABLE OR ATTACHED PERFORATOR TYPIST: No RADIOLOGY DEPARTMENT: Ultrasound PERIPHERAL IV DATA: Not applicable SIGNED BY: Vonnie Bond RDMS March 18, 2025 9:16 AM documented in this encounter [facility] 03-18-2025 Note HNO ID: [id number] Author: VONNIE BOND RDMS Service: ? Author Type: Skill Training Program Coordinator Type: Progress Notes Filed: 03/18/2025 09:16 Note Text: Radiology Service Progress Note PATIENT NAME: Nestor Lopez DATE OF SERVICE: March 18, 2025 TIME: 9:16 AM PATIENT IDENTITY VERIFICATION COMPLETED USING TWO (2) IDENTIFIERS: Name and Date of confirmed by patient verbally. FALL SCREENING: Has the patient had 2 falls in the last year or 1 fall with injury or currently using an Ambulatory Assistive Device (Walker, Cane, Wheelchair, Crutches, etc.)? No PATIENT GENDER DATA: Assigned female at . status: : No status: NO. PATIENT RELEVANT IMPLANT DATA REVIEWED: Not Applicable PATIENT PRESENTS WITH AN IMPLANTABLE OR ATTACHED PERFORATOR TYPIST: No RADIOLOGY DEPARTMENT: Ultrasound PERIPHERAL IV DATA: Not applicable SIGNED BY: Vonnie Bond RDMS March 18, 2025 9:16 AM [facility] 11-27-2024 Telephone encount er Note Referral placed. No need for cytotec [facility] 11-27-2024 Miscellaneous Notes Formattin g of this note might be different from the original. Referral placed. No need for cytotec Linked order to appointment. Dr Godoy patient had one previous delivery that was a C Section. Do you want Cytotec ordered? documented in this encounter [facility] 11-27-2024 Telephone encount er Note Linked order to appointment. Dr Godoy patient had one previous delivery that was a C Section. Do you want Cytotec ordered? [facility] 11-26-2024 Instructions Sandra Vizcaino MD - 11/26/2024 4:04 PM EDT - Keep using condoms until your new IUD is placed. - Review the pamphlets on IUD options (Mirena and Paragard) and message us via [employer] with your choice. - Your IUD insertion is scheduled for December 11 at 10:30 AM; please arrive a few minutes early so we can perform a urine test. Take ibuprofen on the day of your appointment to help with any cramping. - A repeat breast ultrasound has been ordered for March to follow up on the breast lumps. If the results show any increase in size, the imaging center will advise if a biopsy is needed. - Call our office if you experience any changes or have questions after your visit. documented in this encounter [facility] 11-26-2024 Note HNO ID: [id number] Author: SANDRA VIZCAINO MD Service: ? Author Type: Physician Type: Progress Notes Filed: 11/26/2024 16:04 Note Text: Cleat Blanker offered: Patient declines. Subjective The patient is a 24-year-old female with a history of migraines and a family history of breast cancer presenting for evaluation of breast lumps and contraception counseling. Breast Lumps - Reports discovering multiple lumps in both breasts, with two in the right breast and a couple in the left. - Describes breasts as lumpy and expresses concern due to a family history of breast cancer. - Lumps are not painful unless palpated frequently. - Feels the original lump in the left breast is the same size as before. - Denies any significant skin changes. - Reports white nipple discharge from both breasts, which she attributes to her menstrual cycle. - Stopped in May 2023. - No significant weight changes reported. - Family history of breast cancer includes her grandmother's sisters and her mother's cousin, who recently underwent surgery for breast cancer. - No first-degree relatives (mother, father, siblings) with a history of breast cancer. Menstrual Irregularities - Menstrual cycle is regular, with a length of 24-28 days. - Current period started yesterday, with a cycle length of 24 days this month. - Describes menstrual flow as medium for the first two days, then very light. - Denies experiencing cramps. Contraception Counseling and Management - Previous use of Nexplanon in high school resulted in continuous bleeding for a year, leading to discontinuation. - Long-term use of oral contraceptive pills reportedly triggered migraines. - Currently considering a copper IUD due to its non-hormonal nature but expresses concerns about potential side effects. - Partner and she have stopped using condoms, prompting the need for reliable contraception. - Expresses concerns about hormonal contraception due to a history of migraines and current acne issues. - Uncertain if migraines were present during Nexplanon use, but notes a cessation of migraines after discontinuing oral contraceptive pills. - Previously prescribed spironolactone by a shot dropper for cystic acne but did not start the medication due to concerns about breast cysts and potential breast cancer risk. Constitutional: (-) weight changes Genitourinary: (+) bilateral breast lumps, (-) breast pain (except with repeated palpation), (+) bilateral white nipple discharge, (-) dysmenorrhea, (+) regular menses Skin: (+) acne Objective Blood pressure 120/70, weight 70.3 kg (155 lb), last menstrual period 08/17/2024, not currently . General: No acute distress. Breast: symmetrical, tiny brianna size cyst at 10:00 left breast- stable- no other masses noted. no nipple discharge, no skin changes, no lymphadenopathy. 1. Cyst of left breast (N60.02) -no significant changes in size of the original cyst in the left breast. - No nipple discharge or skin changes observed. - Physical examination reveals normal cystic feeling breast tissue, no concerning findings. - Scheduled follow-up ultrasound in March to monitor cysts. - Advised patient that if any changes are noted on the ultrasound, a biopsy may be recommended. 2. Encounter for initial prescription of intrauterine contraceptive device (IUD) (Z30.014) - Discussed contraceptive options, including copper IUD (Paragard) and hormonal IUD (Mirena). - Educated on the benefits and potential side effects of each option: - Copper IUD: Non-hormonal, effective for 10 years, immediate efficacy, <1% rate, potential for heavier and more painful periods. - Mirena IUD: Contains progesterone, effective for 5 years, may reduce or eliminate periods, potential for irregular bleeding in the first 3-6 months, possible hormonal acne. - Patient expressed concern about hormonal side effects due to history of migraines and acne. - Provided pamphlets for further information. - Scheduled IUD insertion appointment on December 11 at 10:30 AM. - Advised to use condoms until IUD placement to prevent early disruption. - Instructed to take ibuprofen on the day of insertion to manage cramping. 3. Family history of malignant neoplasm of breast (Z80.3) - Family history includes breast cancer in grandmother's sisters and mother's cousin. - No first-degree relatives with breast cancer. - Patient is aware of family history and its implications. Attestation Recording using [employer] software for draft documentation of the visit was discussed with the patient/authorized new accounts representative; all questions welcomed and answered. Patient/authorized new accounts representative agreed to proceed Medical Decision Making: Problems: Low: Acute, uncomplicated illness or injury Moderate: New problem with uncertain prognosis Risk: Low: Low risk from testing/treatment (more content not included)... [facility] 11-26-2024 History of Presen t illness Narrative Cleat Blanker offered: Patient declines. Subjective The patient is a 24-year-old female with a history of migraines and a family history of breast cancer presenting for evaluation of breast lumps and contraception counseling. Breast Lumps - Reports discovering multiple lumps in both breasts, with two in the right breast and a couple in the left. - Describes breasts as lumpy and expresses concern due to a family history of breast cancer. - Lumps are not painful unless palpated frequently. - Feels the original lump in the left breast is the same size as before. - Denies any significant skin changes. - Reports white nipple discharge from both breasts, which she attributes to her menstrual cycle. - Stopped in May 2023. - No significant weight changes reported. - Family history of breast cancer includes her grandmother's sisters and her mother's cousin, who recently underwent surgery for breast cancer. - No first-degree relatives (mother, father, siblings) with a history of breast cancer. Menstrual Irregularities - Menstrual cycle is regular, with a length of 24-28 days. - Current period started yesterday, with a cycle length of 24 days this month. - Describes menstrual flow as medium for the first two days, then very light. - Denies experiencing cramps. Contraception Counseling and Management - Previous use of Nexplanon in high school resulted in continuous bleeding for a year, leading to discontinuation. - Long-term use of oral contraceptive pills reportedly triggered migraines. - Currently considering a copper IUD due to its non-hormonal nature but expresses concerns about potential side effects. - Partner and she have stopped using condoms, prompting the need for reliable contraception. - Expresses concerns about hormonal contraception due to a history of migraines and current acne issues. - Uncertain if migraines were present during Nexplanon use, but notes a cessation of migraines after discontinuing oral contraceptive pills. - Previously prescribed spironolactone by a shot dropper for cystic acne but did not start the medication due to concerns about breast cysts and potential breast cancer risk. Constitutional: (-) weight changes Genitourinary: (+) bilateral breast lumps, (-) breast pain (except with repeated palpation), (+) bilateral white nipple discharge, (-) dysmenorrhea, (+) regular menses Skin: (+) acne Objective Blood pressure 120/70, weight 70.3 kg (155 lb), last menstrual period 08/17/2024, not currently . General: No acute distress. Breast: symmetrical, tiny brianna size cyst at 10:00 left breast- stable- no other masses noted. no nipple discharge, no skin changes, no lymphadenopathy. 1. Cyst of left breast (N60.02) -no significant changes in size of the original cyst in the left breast. - No nipple discharge or skin changes observed. - Physical examination reveals normal cystic feeling breast tissue, no concerning findings. - Scheduled follow-up ultrasound in March to monitor cysts. - Advised patient that if any changes are noted on the ultrasound, a biopsy may be recommended. 2. Encounter for initial prescription of intrauterine contraceptive device (IUD) (Z30.014) - Discussed contraceptive options, including copper IUD (Paragard) and hormonal IUD (Mirena). - Educated on the benefits and potential side effects of each option: - Copper IUD: Non-hormonal, effective for 10 years, immediate efficacy, <1% rate, potential for heavier and more painful periods. - Mirena IUD: Contains progesterone, effective for 5 years, may reduce or eliminate periods, potential for irregular bleeding in the first 3-6 months, possible hormonal acne. - Patient expressed concern about hormonal side effects due to history of migraines and acne. - Provided pamphlets for further information. - Scheduled IUD insertion appointment on December 11 at 10:30 AM. - Advised to use condoms until IUD placement to prevent early disruption. - Instructed to take ibuprofen on the day of insertion to manage cramping. 3. Family history of malignant neoplasm of breast (Z80.3) - Family history includes breast cancer in grandmother's sisters and mother's cousin. - No first-degree relatives with breast cancer. - Patient is aware of family history and its implications. Attestation Recording using [employer] software for draft documentation of the visit was discussed with the patient/authorized new accounts representative; all questions welcomed and answered. Patient/authorized new accounts representative agreed to proceed Medical Decision Making: Problems: Low: Acute, uncomplicated illness or injury Moderate: New problem with uncertain prognosis Risk: Low: Low risk from testing/treatment Moderate: Drug management Medical Decision Making Level: 4 - Moderate Sandra Meeks MD documented in this encounter [facility] 11-26-2024 Telephone encount er Note Patient called back. Would like the 3:30 with DM. Sabrina Ayala RN [facility] 11-26-2024 Miscellaneous Notes Formattin g of this note might be different from the original. Patient called back. Would like the 3:30 with DM. Sabrina Ayala RN Left message for patient to call office. Please ask patient if she is okay with seeing either AG @ 11:00 am or DM could see her at 3:30 pm. Sabrina Ayala RN documented in this encounter [facility] 11-26-2024 Telephone encount er Note Left message for patient to call office. Please ask patient if she is okay with seeing either AG @ 11:00 am or DM could see her at 3:30 pm. Sabrina Ayala RN [facility] 11-15-2024 Evaluation note Diagnosis Onset Date Resolution Encounter to establish care acute November 15, 2024 9:23am Generalized anxiety disorder acute November 15, 2024 9:23am [facility] Work Phone: [phone] 753-488902-13-2025 Telephone encounter Note* Telephone Encounter - Rosa Ferrera RN - 09/19/2024 9:43 AM EST Last OV 08/27/24. Request for 90 day supply. Requested Prescriptions Pending Prescriptions Disp Refills escitalopram oxalate (LEXAPRO) 20 mg tablet [Pharmacy Med Name: ESCITALOPRAM 20 MG TABLET] 90 tablet 1 Sig: TAKE 1 TABLET BY MOUTH EVERY DAY Rosa Ferrera RN [facility]02-13-2025 Miscellaneous Notes* Telephone Encounter - Rosa Ferrera RN - 09/19/2024 9:43 AM EST Last OV 08/27/24. Request for 90 day supply. Requested Prescriptions Pending Prescriptions Disp Refills escitalopram oxalate (LEXAPRO) 20 mg tablet [Pharmacy Med Name: ESCITALOPRAM 20 MG TABLET] 90 tablet 1 Sig: TAKE 1 TABLET BY MOUTH EVERY DAY Rosa Ferrera RN [facility] History of Present illness Narrative* Vonnie Bond RDMS - 09/18/2024 2:30 PM EST Radiology Service Progress Note PATIENT NAME: Nestor Lopez DATE OF SERVICE: September 18, 2024 TIME: 2:59 PM PATIENT IDENTITY VERIFICATION COMPLETED USING TWO (2) IDENTIFIERS: Name and Date of confirmedby patient verbally. FALL SCREENING: Has the patient had 2 falls in the last year or 1 fall with injury or currently using an Ambulatory Assistive Device (Walker, Cane, Wheelchair, Crutches, etc.)? No PATIENT GENDER DATA: Assigned female at . status: : No status:NO. PATIENT RELEVANT IMPLANT DATA REVIEWED: Not Applicable PATIENT PRESENTS WITH AN IMPLANTABLE OR ATTACHED PERFORATOR TYPIST: No RADIOLOGY DEPARTMENT: Ultrasound PERIPHERAL IV DATA: Not applicable SIGNED BY: Vonnie Bond RDMS September 18, 2024 2:59 PM [facility]25 NoteHNO ID: [id number] Author: VONNIE BOND RDMS Service: ? Author Type: Skill Training Program Coordinator Type: Progress Notes Filed: 09/18/2024 15:00 Note Text: Radiology Service Progress Note PATIENT NAME: Nestor Lopez DATE OF SERVICE: September 18, 2024 TIME: 2:59 PM PATIENT IDENTITY VERIFICATION COMPLETED USING TWO (2) IDENTIFIERS: Name and Date of confirmed by patient verbally. FALL SCREENING: Has the patient had 2 falls in the last year or 1 fall with injury or currently using an Ambulatory Assistive Device (Walker, Cane, Wheelchair, Crutches, etc.)? No PATIENT GENDER DATA: Assigned female at . status: : No status: NO. PATIENT RELEVANT IMPLANT DATA REVIEWED: Not Applicable PATIENT PRESENTS WITH AN IMPLANTABLE OR ATTACHED PERFORATOR TYPIST: No RADIOLOGY DEPARTMENT: Ultrasound PERIPHERAL IV DATA: Not applicable SIGNED BY: Vonnie Bond RDMS September 18, 2024 2:59 [facility]01-21-2025 Note* Addendum Note - Sandra Vizcaino MD - 08/27/2024 10:54 AM ESTAddended by: SANDRA GODOY on: 08/27/2024 10:54 AM Modules accepted: Orders [facility]01-21-2025 Miscellaneous Notes* Addendum Note - Sandra Vizcaino MD - 08/27/2024 10:54 AM ESTAddended by: SANDRA GODOY on: 08/27/2024 10:54 AM Modules accepted: Orders documented in this encounterC[facility]01-21-2025 NoteHNO ID: [id number] Author: SANDRA VIZCAINO MD Service: ? Author Type: Physician Type: Progress Notes Filed: 08/27/2024 10:54 Note Text: Cleat Blanker offered: Patient declinesChuyita Abrams is a 24 year old who presents for an annual gynecologic exam. H/o anxiety stopped medications. Was seeing counselor recommend restarting anxiety medication. 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: Sexual Activity: Yes; Male Contraception: No contraception data on record PAST MEDICAL HISTORY Diagnosis Date Acne 08/07/2013 Anxiety 08/07/2012 anxiety Back pain 08/07/2014 Resolved breast mass 07/2022 Left Constipation 08/07/2008 Headache 08/07/2012 Heart murmur 05/07/2013 HELLP syndrome, antepartum 02/07/2023 Knee pain Migraine Thumb fracture left age 11 yrs PAST SURGICAL HISTORY Procedure Laterality Date PAST SURGICAL HISTORY OF 12/15/2020 Incision and Drainage, Pilonidal Cyst FAMILY HISTORY Problem Relation Age of Onset Seizures Father Diabetes Maternal Grandfather Hypertension Maternal Grandfather Lipids Maternal Grandfather No Known Problems Paternal Grandmother Cancer Paternal Grandfather Breast Cancer Other Breast Cancer Other 40 SOCIAL HISTORY Social History Tobacco Use Smoking status: Never Smokeless tobacco: Never Vaping Use Vaping status: Never Used Substance Use Topics Alcohol use: Never Drug use: Never REVIEW OF SYSTEMS Abdomen: No abdominal pain, nausea, vomiting, diarrhea, or constipation. No bloating, early satiety, indigestion, or increased flatulence. Bladder: No dysuria, gross hematuria, urinary frequency, urinary urgency, or incontinence. Breast: No breast lumps, nipple d/c, overlying skin changes, redness or skin retraction. Allergies and current medication updated:Yes SENSITIVE EXAM: The sensitive examination was discussed with the Patient or Patient's Authorized Director [employer]. As applicable, any other physician, advance practice provider, medical student, or other health professional student that will be observing or involved in the sensitive examination for educational or training purposes was discussed with the Patient or Authorized Director [employer]. The Patient or Authorized Director [employer] has agreed to proceed with the sensitive examination. (Sensitive examination includes inspection and/or palpation of the breasts, pelvis, prostate and anorectal regions). EXAM: BP 110/64 Ht 5' 6 (1.68m) Wt 157 lb (71.2kg) LMP 08/17/2024 BMI 25.35 kg/(m2). GENERAL: pleasant, female in no apparent distress HEENT: Normocephalic, atraumatic, mucus membranes moist, and no lesions NECK: Supple, full range of motion, no adenopathy, and thyroid normal DERMATOLOGY: Normal, without lesions, non-icteric, and non-hirsute BREAST: soft, non-tender, symmetric, 10:00 small brianna sized mass ? Fat pad. Pt unsure if changed in size. Breasts are bilaterally lumpy, normal nipple-areolar complex, no lymphadenopathy, and no nipple discharge CHEST: Normal inspiratory effort ABDOMEN: soft, non-tender, and no masses PELVIC: external genitalia normal, normal Bartholin's glands, urethra, [place]'s glands, no vulvar lesions, no cervical lesions, good vaginal support, physiologic discharge present, normal appearing perineal body and perianal region BIMANUAL: uterus normal size, shape and consistency, no adnexal masses, and non-tender RECTOVAGINAL: deferred. NEURO: alert and oriented x3,exam grossly non-focal EXTREMITIES: normal ASSESSMENT/PLAN: 1) Health maintenance: Pap/HPV up to date. Mammogram starting age 40. Nutrition, exercise and routine health maintenance exams reviewed. Calcium/Vitamin D supplementation information provided. HPV vaccine: completed series 2) Contraception: condoms. Contraceptive options reviewed and information provided. 3) STD screening: Declined STD check. 4) Follow up one year or sooner as needed Sandra Meeks [facility]01-21-2025 History of Present illness Narrative* Sandra Vizcaino MD - 08/27/2024 10:16 AM EST Cleat Blanker offered: Patient declines. Nestor is a 24 year old who presents for an annual gynecologic exam. H/o anxiety stopped medications. Was seeing counselor recommend restarting anxiety medication. 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: Sexual Activity: Yes; Male Contraception: No contraception data on record PAST MEDICAL HISTORY Diagnosis Date Acne 08/07/2013 Anxiety 08/07/2012 anxiety Back pain 08/07/2014 Resolved breast mass 07/2022 Left Constipation 08/07/2008 Headache 08/07/2012 Heart murmur 05/07/2013 HELLP syndrome, antepartum 02/07/2023 Knee pain Migraine Thumb fracture left age 11 yrs PAST SURGICAL HISTORY Procedure Laterality Date PAST SURGICAL HISTORY OF 12/15/2020 Incision and Drainage, Pilonidal Cyst FAMILY HISTORY Problem Relation Age of Onset Seizures Father Diabetes Maternal Grandfather Hypertension Maternal Grandfather Lipids Maternal Grandfather No Known Problems Paternal Grandmother Cancer Paternal Grandfather Breast Cancer Other Breast Cancer Other 40 SOCIAL HISTORY Social History Tobacco Use Smoking status: Never Smokeless tobacco: Never Vaping Use Vaping status: Never Used Substance Use Topics Alcohol use: Never Drug use: Never REVIEW OF SYSTEMS Abdomen: No abdominal pain, nausea, vomiting, diarrhea, or constipation. No bloating, early satiety, indigestion, or increased flatulence. Bladder: No dysuria, gross hematuria, urinary frequency, urinary urgency, or incontinence. Breast: No breast lumps, nipple d/c, overlying skin changes, redness or skin retraction. Allergies and current medication updated:Yes SENSITIVE EXAM: The sensitive examination was discussed with the Patient or Patient's Authorized Director Semiconductor. As applicable, any other physician, advance practice provider, medical student, or other health professional student that will be observing or involved in the sensitive examination for educational or training purposes was discussed with the Patient or Authorized Director Semiconductor. The Patient or Authorized Director Semiconductor has agreed to proceed with the sensitive examination. (Sensitive examination includes inspection and/or palpation of the breasts, pelvis, prostate and anorectal regions). EXAM: BP 110/64 Ht 5' 6 (1.68m) Wt 157 lb (71.2kg) LMP 08/17/2024 BMI 25.35 kg/(m^2). GENERAL: pleasant, female in no apparent distress HEENT: Normocephalic, atraumatic, mucus membranes moist, and no lesions NECK: Supple, full range of motion, no adenopathy, and thyroid normal DERMATOLOGY: Normal, without lesions, non-icteric, and non-hirsute BREAST: soft, non-tender, symmetric, 10:00 small brianna sized mass ? Fat pad. Pt unsure if changed insize. Breasts are bilaterally lumpy, normal nipple-areolar complex, no lymphadenopathy, and no nipple discharge CHEST: Normal inspiratory effort ABDOMEN: soft, non-tender, and no masses PELVIC: external genitalia normal, normal Bartholin's glands, urethra, [place]'s glands, no vulvar lesions, no cervical lesions, good vaginal support, physiologic discharge present, normal appearing perineal body and perianal region BIMANUAL: uterus normal size, shape and consistency, no adnexal masses, and non-tender RECTOVAGINAL: deferred. NEURO: alert and oriented x3,exam grossly non-focal EXTREMITIES: normal ASSESSMENT/PLAN: 1) Health maintenance: Pap/HPV up to date. Mammogram starting age 40. Nutrition, exercise and routine health maintenance exams reviewed. Calcium/Vitamin D supplementation information provided. HPV vaccine: completed series 2) Contraception: condoms. Contraceptive options reviewed and information provided. 3) STD screening: Declined STD check. 4) Follow up one year or sooner as needed Sandra Meeks MD documented in this encounterCleveland [facility] Foundation08-14-[facility]23 History of Present illness Narrative* Berenice Ovalle MD - 03/20/2023 11:30 AM EDT VISIT Nestor Lopez is a 22 year old year old here for visit. Delivery Summary: c-s ROS/ Recovery: Feeding: pumping for still in NICU problems: None for her Menses since delivery: n/a Menstrual pattern prior to : Regular periods [place] since delivery: Not resumed Depression: denies symptoms of depression. OB Depression and Anxiety Screening- This Encounter (since 03/19/2023) None Emotional support: Yes Bowel symptoms: Negative for abdominal discomfort, blood in stools or black stools and change in bowel habits Abdomen: She reports no incisional redness, tenderness, erythema Bladder symptoms: No dysuria, gross hematuria, urinary frequency, urinary urgency, or incontinence Other issues: None Last Pap: 2022 normal HPV: negative PAST MEDICAL HISTORY Diagnosis Date Acne 08/07/2013 Anxiety 08/07/2012 anxiety Back pain 08/07/2014 Resolved breast mass 07/2022 Left Constipation 08/07/2008 Headache 08/07/2012 Heart murmur 05/07/2013 HELLP syndrome, antepartum 02/07/2023 Knee pain Migraine Thumb fracture left age 11 yrs PAST SURGICAL HISTORY Procedure Laterality Date PAST SURGICAL HISTORY OF 12/15/2020 Incision and Drainage, Pilonidal Cyst FAMILY HISTORY Problem Relation Age of Onset Seizures Father Diabetes Maternal Grandfather Hypertension Maternal Grandfather Lipids Maternal Grandfather No Known Problems Paternal Grandmother Cancer Paternal Grandfather Breast Cancer Other Breast Cancer Other 40 Social History Tobacco Use Smoking status: Never Smokeless tobacco: Never Vaping Use Vaping Use: Never used Substance Use Topics Alcohol use: Never Drug use: Never PHYSICAL EXAMINATION: BP 112/62 Ht 5' 6 (1.68m) Wt 152 lb (68.9kg) LMP 07/13/2022 BMI 24.55 kg/(m^2). GENERAL: pleasant, female in no apparent distress HEENT: Normocephalic, atraumatic, mucus membranes moist, and no lesions NECK: Supple, full range of motion, no adenopathy, and thyroid normal DERMATOLOGY: Normal, without lesions, non-icteric, and non-hirsute BREAST: soft, non-tender, symmetric, no dominant mass, normal nipple-areolar complex, no lymphadenopathy, and no nipple discharge CHEST: Normal inspiratory effort ABDOMEN: soft, non-tender, and no masses. INCISION: No incisional redness, swelling, or drainage PELVIC: external genitalia normal, normal Bartholin's glands, urethra, [place]'s glands, no vulvar lesions, no cervical lesions, good vaginal support, physiologic discharge present, normal appearing perineal body and perianal region BIMANUAL: uterus normal size, shape and consistency, no adnexal masses, and non-tender NEURO: alert and oriented x3,exam grossly non-focal EXTREMITIES: normal ASSESSMENT AND PLAN: 22 year old status post with normal course. Contraception plan: considering, d/w her options. D/w her LARC, had nexplanon in past and had a lotof bleeding. Encouraged IUD. Follow up: Pre-eclampsia: Needs lipids checked Berenice Ovalle MD documented in this encounterCleveland Clinic Foundation07-10-2023 Instructions* Patient Instructions* Terra Herrera APRN.CNM - 02/13/2023 2:19 PM EDT BP 140/90 please call the office. Send a BP log on 02/17/23 If 160/110 will need readmitted. Here are some links for wonderful Providers here in the community and surrounding areas. Do not hesitate to contact their offices, many are offering virtual visits during this time. 9-510-1-JPUE5YPXL - [place] Maternal Mental Health Hotline If you are in suicidal crisis, please call or text 2-514-635-TALK ( ) or visit the National Suicide Prevention Lifeline website. mchb.[facility].gov [facility] Behavioral [facility] Psychology, Psychiatry, Counseling Connect with therapist/ can do virtual visits [phone] Referral to the [facility] To schedule an appointment, please call the [place] for [facility]al Health Appointment Line: [phone] option 1 [facility] - [place], [place] [address] [facility] [place] [address] [facility] [address] [place] [address] [facility] [address] [place] [address] [facility] [address] [place] [address] Lisbeth Sahu MD [address] [place] [address] [facility] [address] [facility], [address] [place] [address] [facility] [address] [place] [address] [facility] Counseling Services [place] / [place] [phone]/ [phone] Sari Moreno [address] [facility], [facility] [address] [facility] [phone] [facility] Counseling and Mediation Sue / Mary [phone] Behavioral health services of [facility] [address] [place] [address]/ [place] and [facility] [phone] Craig Burt, KASH, ESE Bu and Beyond Family Therapy Workshops, telehealth and at home visits. [phone] [facility] counseling [place] 20 locations [place], [place], [place], [place], [place], [place], [place], [facility], [place], [place], [place], [place], [place], [place], [facility], [place], [place] ,[facility], [place], [place],[facility], [facility] [place], [place], [facility], [facility], [place] www.Fippex [phone] Psychotherapy resources outside of [facility] are listed below [facility] Web: https://www.PEX Card/ Support International Online Provider Directory https://Rant Network/ [facility] https://InnerWireless/ Medical Device Innovations for Behavioral Health and Wellness Web: https://Quietyme/ Centeris Corporation for Effective Living Web: https://Poshly.ThinkspeedlivingPurewire/ LifeStance Web: https://Tabber.mobiDEOS/location/[facility]/[place]/ [facility] Web: https://www.[facility].org/ [facility] Web: https://Tetris Online.org/ Recovery Resources Mental health and substance abuse help Web: https://www.Medprex.ITC & RESOURCES Support International Direct peer support and connection to professional resources Non-Emergency Helpline Phone: / Text: [phone] Web: https://www..net/ Online Provider Directory: https://Rant Network/ Online Support Meetings: https://www..net/get-help/tkw-qsexew-zkqjsdc-meetings/ MELANIE Baby and Dirt Bike Mechanic Services Web: https://www.Monesbat/ MotherToMetamark Geneticsby Expert information on medication use during and Text: [phone] Web: https://StarsVu.ITC/ NATIONAL REGISTRY FOR PSYCHIATRIC MEDICATIONS Currently studying the safety of antidepressants, ADHD medications and atypical antipsychotics taken during TO PARTICIPATE CALL TOLL-FREE: Web: https://womensmentalhealth.org/research/pregnancyregistry/ Support Groups: [facility]- Follow on facebook Baby Bistro support group led by [facility] department Resilient Mamas - Support Group [facility].org The POEM support group [phone] Www.poemonline.org Follow on facebook - PEBBLES florez Online support meetings PSI https://www..net/get-help/gpz-eikslm-uvjtqph-meetings/ [facility] mommy and me virtual support group 11:30-1pm Support for mothers and new babies and toddlers [place] childbirth education: Childbirth @cc.org or call [phone] CRISIS: CRISIS HOTLINE [phone], 911 or go to the nearest [facility] [phone] / [facility] [phone] https://www.[facility]view hospital[facility].org Crisis text line text the word HOME to [phone] [facility] [address] [facility] [address] www.JusticeBox Kacey Mahmood clinical counseling [address] [facility] [address] [place] [address] www.Linden LabriStrataCloud.mobiDEOS [phone] Holding space psychotherapy Mylene Mcdonald MSW MOLD INSPECTOR-S [address] [facility] www.Minicabster [phone]/ Isi [phone] They all offer virtual. All work with trauma Support groups Online support meetings PSI https://www..net/get-help/ujg-fyoowa-dtjluvi-meetings/ Here are the support groups they offer: Support of parents of 1 to 4 years old children POEM ( Outreach and Encouragement for Moms) offers free support for mothers experiencing depression, anxiety, and other mood and anxiety disorders. Masks are recommended but not required. No pre-registration required. Babies in arms welcome. meetings now take place on the and Monday of each month Location: [facility] [address] [place] [address] Room 122 (library room) 7-8:00 p.m. When you enter the [facility] parking lot off of [address] the entrance door closest to our meeting room is on the front of the building toward the right. For those who are more comfortable with a virtual platform, POEM offers online support group options several days of the week. To register for an online group or to find out more about POEM, website at: https://mhaohio.org/get-help/ufzfteye-lapdwk-cjgpwi/poem-services/ offer a confidential helpline: private Terrafugia group is called [facility] Here are the groups they offer: Traumatic childbirth resources: Http://pattch.org/ https://www.DodreamsnishaRentStuff.com.mobiDEOS/ documented in this encounterCleveland Clinic Foundation07-10-2023 History of Present illness Narrative* Terra Herrera APRN.CNM - 02/13/2023 1:43 PM EDT EARLY VISIT Nestor Lopez is a 22 year old here for 1 week visit. Delivery Summary: Date: 02/07/2023 Time: 1:11am Sex: F Name: Shruthi Weight: 2# 15.3oz Outcome: PCS Details: HELLP Syndrome, Incision - low transverse, and Labor Anesthesia: General Delivered by: Areli Whitehead MD (Mouthcard) Perineal repair: NA ROS: General: Denies any fever or chills Hypertension Screening: Headache? Yes. Was it successfully treated with Tylenol? yes Visual Changes? No Epigastric Pain? No Increased Swelling? No Taking any BP medications at home? No If applicable, monitoring BP at home? (If Yes, include results) Yes / 126/86 Mood: normal Depression: denies symptoms of depression. OB Depression and Anxiety Screening- This Encounter (since 02/12/2023) Over the past 2 weeks have you felt down, depressed, or hopeless? Negative Over the past two weeks, have you felt little interest or pleasure in doing things? Negative Feeling nervous, anxious or on edge 0-Not at all Not being able to stop or control worrying 0-Not al all Anxiety Pre-Screening Total (If >/= 3 additional questions will be reviewed) 0 Feeding: Breast feeding - pumping problems: None Bladder: No dysuria, gross hematuria, urinary frequency, urinary urgency, or incontinence Bowel symptoms: Negative for abdominal discomfort, blood in stools or black stools Abdomen: Incision is slightly sore Bleeding: None Bottom and Perineum: No issues Sleep: no sleep concerns, feels rested [place] since delivery: Not resumed Emotional support: Yes Exercise: N/A Other issues: None PHYSICAL EXAMINATION: LMP 07/13/2022 (Exact Date) General: pleasant,female in no apparent distress, A&O x 3. Skin warm and intact. Breast: Deferred Abdomen: soft, non-tender, and no masses /Incision: No incisional redness, swelling, or drainage Pelvic: Deferred Bimanual: Deferred ASSESSMENT AND PLAN: 22 year old status post CS with normal course. and course complicatedby HELLP syndrome. Reinforced 6-week pelvic rest. Encouraged condom usage should patient deviate. Education: resources provided - see MA/RN note CBC and CMP today. Continue checking bp and send log weekly Follow up: Return to Clinic for 6 week visit and as needed Terra Herrera APRN.CNM documented in this encounterCleveland Clinic Foundation07-07-2023 NoteHNO ID: [id number] Author: Mary Paul MD Service: Obstetrics Author Type: Resident Type: Progress Notes Filed: 02/10/2023 6:08 AM Note Text: OBSTETRICS PROGRESS NOTE SERVICE DATE: February 10, 2023 SERVICE TIME: 6:02 AM ASSESSMENT: 22 year old female who is Postoperative Day #3 status post , Low Transverse delivery with female . PLAN: Active Hospital Problems Diagnosis Date Noted state 02/08/2023 Overview Note: #Routine post-operative care - Pain well controlled on current regimen - s/p Ingram. UOP adequate. - Passing flatus - Tolerating p.o. intake. - Ambulating in room - DVT ppx: SCDs while in bed - Hgb 10.4 - 8. 7 > 8.5 > > > > > 7.4 this AM # Routine care - Meeting milestones - Lochia appropriate - Breast feeding via pumping - Female [facility] HELLP syndrome, 02/07/2023 Overview Note: -on admission concern for HELLP vs acute fatty liver in setting of nausea/vomiting and transaminitis - BP normotensive - Not requiring maintenance anti-hypertensive - Remains stable, plt now stabilizing and LFTs continue to decrease Hgb 10.4>8.7>8.5>>9.1>7.8>>8.5>7.4 Plt 40>2U>59>>120>>>66>>73>143>137 AST/ALT 221/205>>>74/131>>>263/204 >>163/196>>>67/157 Cr 0.56 >>>0.58>>>0.53 -UPC: 0.32 -INR/pt/ptt slightly elevated 0.9/9.5/32.7 -fibrinogen 449 -ammonia 15 -uric acid 5.9 -tbili 2.1, direct 0.5, indirect 1.6 - s/p LTCS 11/11 under general anesthesia as per MFM - s/p Magnesium initiated for pre-eclampsia 4g bollus followed by 2g/hr -otherwise asymptomatic Hyponatremia 02/07/2023 Overview Note: Na 133->120->134->134-> 137 -no AMS, confusion, headache, dizziness, shortness of breath, abdominal pain -positive upper extremity edema, no lower extremity edema -s/p fluid restriction given magnesium -s/p pitocin -s/p Mg ordered in LR 2g/hr -House medicine consulted for further management. Now signed off - lab drawn peripherally, thought to be potentially artificially low Thrombocytopenia affecting (HCC) 02/06/2023 Rh negative state in antepartum period 02/01/2023 Overview Note: S/p rhogam Rhogam as indicated History of anxiety 09/08/2022 Overview Note: 09/08/2022atient has a history of anxiety treated by Dr. Coleman. She stopped her Lexapro in July 2022. Believes she is doing well off medication. Denies ever having depression. TKRN Plan of care discussed with: Provider, RN, Patient. Anticipate discharge day: POD 3 SUBJECTIVE: Doing very well this AM. [facility]. Patient has no current complaints. Tolerating PO intake. Urinating without difficulty. Passing flatus. Pain well controlled with current regimen. Lochia decreasing. Ambulating without difficulty. Denies headache, visual changes, RUQ pain, chest pain, shortness of breath, worsening edema. OBJECTIVE: General: lying comfortably in hospital bed Heart: warm and well-perfused. Regular rate Lungs: breathing comfortably on room air Abdomen: soft, nondistended, non-tender Uterus: firm below umbilicus Incision: transverse incision c/d/I with steri-strips Extremities: trace edema bilaterally, calves symmetric LAST VITALS: Pulse BP Resp O2 Sat Temp Pain 85 119/76 14 100 % 36.7 ?C (98.1 ?F) 0 Avg Min Max Vitals (last 12 hours) Flowsheet Row Name Average Min Max BP: Systolic 125 116 140 BP: Diastolic 82.67 76 89 Temp 36.6 ?C (97.83 ?F) 36.4 ?C (97.5 ?F) 36.7 ?C (98.1 ?F) Pulse 80.67 76 85 Resp 16 14 18 SpO2 99 % 97 % 100 % HT/WT/BMI: Height Weight BMI LABS ABO/RH: 02/07/2023: A; Negative RUBELLA: 10/06/2022: Positive HANDH: Hematocrit (%) Date Value 02/10/2023 23.0 02/09/2023 26.0 02/09/2023 21.2 02/08/2023 21.5 Hemoglobin (g/dL) Date Value 02/10/2023 7.4 02/09/2023 8.5 02/09/2023 7.1 02/08/2023 7.3 Diagnostic tests reviewed for today's visit: Most recent labs and imaging results. SIGNATURE: Mary Paul MD PATIENT NAME: Nestor Lopez DATE: February 10, 2023 TIME: 6:02 [facility]07-06-2023 NoteHNO ID: [id number] Author: Tiana Burr RN Service: Nursing Author Type: Registered Nurse Type: Nursing Progress Note Filed: 02/09/2023 6:22 PM Note Text: Patient returned from [facility]07-06-2023 NoteHNO ID: [id number] Author: Mary Paul MD Service: Obstetrics Author Type: Resident Type: Progress Notes Filed: 02/09/2023 6:18 AM Note Text: Attestation signed by Henrry Gorman MD at 02/09/2023 10:09 AM Attending Note I evaluated the patient and personally participated in the valentine components. I agree with the resident's findings and plan as documented and have discussed the case and management of the patient's care with the resident. Latest Reference Range AND Units 02/08/23 04:23 02/08/23 10:24 02/08/23 16:04 02/08/23 21:59 WBC 3.70 - 11.00 k/uL 14.31 (H) 13.01 (H) 11.79 (H) 13.63 (H) RBC 3.90 - 5.20 m/uL 2.82 (L) 2.87 (L) 2.85 (L) 2.58 (L) Hemoglobin 11.5 - 15.5 g/dL 7.8 (L) 8.0 (L) 7.8 (L) 7.3 (L) Hematocrit 36.0 - 46.0 % 23.4 (L) 23.7 (L) 23.5 (L) 21.5 (L) Platelet Count 150 - 400 k/uL 95 (L) 83 (L) 66 (L) 69 (L) MCV 80.0 - 100.0 fL 83.0 82.6 82.5 83.3 MCH 26.0 - 34.0 pg 27.7 27.9 27.4 28.3 MCHC 30.5 - 36.0 g/dL 33.3 33.8 33.2 34.0 MPV 9.0 - 12.7 fL 11.0 10.1 10.5 10.2 RDW-CV 11.5 - 15.0 % 14.8 15.2 (H) 15.5 (H) 15.3 (H) Absolute nRBC <0.01 k/uL <0.01 <0.01 <0.01 0.06 (H) (H): Data is abnormally high (L): Data is abnormally low Latest Reference Range AND Units 02/08/23 04:23 02/08/23 10:24 02/08/23 16:07 02/08/23 21:59 ALT 7 - 38 U/L 204 (H) 211 (H) 196 (H) 178 (H) AST 13 - 35 U/L 263 (H) 201 (H) 163 (H) 126 (H) Anion Gap 9 - 18 mmol/L 10 10 10 10 (H): Data is abnormally high Labs are improving. Subjectively Ms.Maisy Ever Lopze appears much better and is ambulating without difficulty. Ms. Nestor Lopez can have a daypass to visit her baby. BP 113/54 Pulse 62 Temp 36.9 ?C (98.4 ?F) (Oral) Resp 17 LMP 07/13/2022 (Exact Date) SpO2 100% Unknown Plan - repeat labs this afternoon and if stable can be discharged home with nurse BP check early next week Signature: Henrry Gorman MD Date: 02/09/2023 Time: 10:06 AM OBSTETRICS PROGRESS NOTE SERVICE DATE: February 09, 2023 SERVICE TIME: 6:13 AM ASSESSMENT: 22 year old female who is Postoperative Day #2 status post , Low Transverse delivery with female . PLAN: Active Hospital Problems Diagnosis Date Noted state 02/08/2023 Overview Note: #Routine post-operative care - Pain well controlled on current regimen - s/p Ingram. UOP adequate. - Now passing flatus - Tolerating p.o. intake. - Ambulating in room - DVT ppx: SCDs while in bed - Hgb 10.4 - 87 > 8.5 > 8.8 > 9.1 >7.8>8.0>7.8 >7.3> 7.1 # Routine care - Meeting milestones - Lochia appropriate - Breast feeding via pumping - Female infant[facility] HELLP syndrome, 02/07/2023 Overview Note: -on admission concern for HELLP vs acute fatty liver in setting of nausea/vomiting and transaminitis - Remains stable, plt now stabilizing and LFTs continue to decrease - Hgb 10.4>8.7>8.5> 8.8>9.1>7.8>8.0>7.8 >7.3> 7.1 - Plt 40 >2U >59 >74 >120 >121 >95 > 83 > 66 > 69 >73 - AST/ALT 221/205 >113/144 >81/129 >74/131 >71/125 >263/204 >201/211 >163/196 > 126/178 >95/155 - Cr 0.56 >>>0.58>0.62>0.55 -UPC: 0.32 -INR/pt/ptt slightly elevated 0.9/9.5/32.7 -fibrinogen 449 -ammonia 15 -uric acid 5.9 -tbili 2.1, direct 0.5, indirect 1.6 - s/p LTCS 4/7 under general anesthesia as per MFM - s/p Magnesium initiated for pre-eclampsia 4g bollus followed by 2g/hr -given worsening hyponatremia, formulated in NS -otherwise asymptomatic Hyponatremia 02/07/2023 Overview Note: Na 133->120->134->134-> 137 -no AMS, confusion, headache, dizziness, shortness of breath, abdominal pain -positive upper extremity edema, no lower extremity edema -on fluid restriction given magnesium -on pitocin -s/p Mg ordered in LR 2g/hr -House medicine consulted for further management -ical -urine creatinine -urine sodium -osmolality urine -osmolality blood -will plan to trend q6h - lab drawn peripherally, thought to be potentially artificially low Thrombocytopenia affecting (HCC) 02/06/2023 Rh negative state in antepartum period 02/01/2023 Overview Note: S/p rhogam Rhogam as indicated History of anxiety 09/08/2022 Overview Note: 09/08/2022atient has a history of anxiety treated by Dr. Coleman. She stopped her Lexapro in July 2022. Believes she is doing well off medication. Denies ever having depression. TKRN Plan of care discussed with: Provider, RN, Patient. Anticipate discharge day: POD #3-4 SUBJECTIVE: Overall continues to feel much better this AM. Is hopeful to have a pass to [facility] today. Patient has no current complaints. Tolerating PO intake. Urinating without difficulty. Passing flatus. Pain well controlled with current regimen. Lochia decreasing (more content not included)...[facility]07-05-2023 NoteHNO ID: [id number] Author: Mary Paul MD Service: Obstetrics Author Type: Resident Type: Progress Notes Filed: 02/08/2023 6:45 AM Note Text: Attestation signed by Henrry Gorman MD at 02/08/2023 9:47 AM Attending Note I evaluated the patient and personally participated in the valentine components. I agree with the resident's findings and plan as documented and have discussed the case and management of the patient's care with the resident. HD2/POD1 Primary for HELLP syndrome at 29w. Appears stable. Labs as expected are trending up. Will monitor closely Latest Reference Range AND Units 02/07/23 05:55 02/07/23 08:12 02/07/23 11:24 02/07/23 17:35 02/07/23 22:30 02/08/23 04:23 Sodium 136 - 144 mmol/L 120 (L) 134 (L) 134 (L) 137 137 137 Potassium 3.7 - 5.1 mmol/L 3.6 (L) 3.9 3.8 4.2 4.0 3.8 Chloride 97 - 105 mmol/L 90 (L) 102 101 103 103 103 CO2 22 - 30 mmol/L 19 (L) 21 (L) 20 (L) 21 (L) 24 24 BUN 7 - 21 mg/dL 7 7 6 (L) 7 8 9 Creatinine 0.58 - 0.96 mg/dL 0.51 (L) 0.49 (L) 0.49 (L) 0.55 (L) 0.58 0.56 (L) Glucose 74 - 99 mg/dL 102 (H) 111 (H) 110 (H) 102 (H) 106 (H) 100 (H) Protein, Total 6.3 - 8.0 g/dL 4.8 (L) 4.7 (L) 5.5 (L) 5.3 (L) 4.9 (L) Calcium 8.5 - 10.2 mg/dL 6.5 (L) 7.1 (L) 6.9 (L) 7.2 (L) 7.1 (L) 7.0 (L) Ionized Calcium 1.08 - 1.30 mmol/L 1.01 (L) Normalized CAlcium 1.08 - 1.30 mmol/L 0.98 (L) Albumin 3.9 - 4.9 g/dL 2.7 (L) 2.7 (L) 3.1 (L) 3.0 (L) 2.6 (L) Bilirubin, Total 0.2 - 1.3 mg/dL 1.0 0.7 0.5 0.4 0.7 Alkaline Phosphatase 34 - 123 U/L 64 63 74 73 72 ALT 7 - 38 U/L 144 (H) 129 (H) 131 (H) 125 (H) 204 (H) AST 13 - 35 U/L 113 (H) 81 (H) 74 (H) 71 (H) 263 (H) Anion Gap 9 - 18 mmol/L 11 11 13 13 10 10 eGFR >=60 mL/min/1.73m? 136 138 138 134 132 133 Osmolality 275 - 300 mOsm/kg 278 Creatinine, Ur Random (UCRR) 42.2 - 237.9 mg/dL 70.9 WBC 3.70 - 11.00 k/uL 12.64 (H) 14.79 (H) 17.18 (H) 15.95 (H) 14.31 (H) RBC 3.90 - 5.20 m/uL 3.20 (L) 3.07 (L) 3.20 (L) 3.27 (L) 2.82 (L) Hemoglobin 11.5 - 15.5 g/dL 8.7 (L) 8.5 (L) 8.8 (L) 9.1 (L) 7.8 (L) Hematocrit 36.0 - 46.0 % 26.3 (L) 24.9 (L) 25.6 (L) 26.6 (L) 23.4 (L) Platelet Count 150 - 400 k/uL 59 (L) 74 (L) 120 (L) 121 (L) 95 (L) MCV 80.0 - 100.0 fL 82.2 81.1 80.0 81.3 83.0 MCH 26.0 - 34.0 pg 27.2 27.7 27.5 27.8 27.7 MCHC 30.5 - 36.0 g/dL 33.1 34.1 34.4 34.2 33.3 MPV 9.0 - 12.7 fL 11.5 11.9 11.3 10.9 11.0 RDW-CV 11.5 - 15.0 % 14.4 14.4 14.4 14.6 14.8 Absolute nRBC <0.01 k/uL <0.01 <0.01 <0.01 <0.01 <0.01 (L): Data is abnormally low (H): Data is abnormally high Plan if labs stable for discharge POD3. Signature: Henrry Gorman MD Date: 02/08/2023 Time: 9:45 AM MATERNAL MEDICINE / OBSTETRICS PROGRESS NOTE SERVICE DATE: February 08, 2023 SERVICE TIME: 6:22 AM ASSESSMENT: 22 year old female who is Postoperative Day #1 status post , Low Transverse delivery with female . PLAN: Active Hospital Problems Diagnosis Date Noted state 02/08/2023 Overview Note: #Routine post-operative care - Pain well controlled on current regimen - s/p Ingram. UOP adequate. - Not yet passing flatus - Tolerating p.o. intake. - Ambulating in room - DVT ppx: SCDs while in bed - Hgb 10.4 - 87 > 8.5 > 8.8 > 9.1 # Routine care - Meeting milestones - Lochia appropriate - Breast feeding via pumping - [facility] infant[facility]P syndrome, 02/07/2023 Overview Note: -concern for HELLP vs acute fatty liver in setting of nausea/vomiting and transaminitis - Hgb 10.4->8.7->8.5 -> 8.8-> 9.1 -> 7.8 - Plt 40->2U->59->74 ->120 -> 121 -> 95 - AST/ALT 221/205->113/144->81/129 -> 74/131 -> 71/125 -> 263/204 - Cr 0.56->0.51->0.49->0.49 -> 0.55 -> 0.58 -> 0.56 -UPC: 0.32 -INR/pt/ptt slightly elevated 0.9/9.5/32.7 -fibrinogen 449 -ammonia 15 -uric acid 5.9 -tbili 2.1, direct 0.5, indirect 1.6 - s/p LTCS 4/7 under general anesthesia as per MF - s/p Magnesium initiated for pre-eclampsia 4g bollus followed by 2g/hr -given worsening hyponatremia, formulated in NS -otherwise asymptomatic Hyponatremia 02/07/2023 Overview Note: Na 133->120->134->134-> 137 -no AMS, confusion, headache, dizziness, shortness of breath, abdominal pain -positive upper extremity edema, no lower extremity edema -on fluid restriction given magnesium -on pitocin -s/p Mg ordered in LR 2g/hr -House medicine consulted for further management -ical -urine creatinine -urine sodium -osmolality urine -osmolality blood -will plan to trend q6h - lab drawn peripherally, thought to be potentially artificially low Thrombocytopenia affecting (HCC) 02/06/2023 Rh negative state in antepartum period 02/01/2023 Overview Note: S/p rhogam Rhogam as indicated History of anxiet (more content not included)...[facility] 02-08-2023 NoteHNO ID: [id number] Author: Ros Mata MD Service: Obstetrics Author Type: Resident Type: Progress Notes Filed: 02/07/2023 10:22 PM Note Text: EVALUATION Service Date: February 07, 2023 Service Time: 10:13 PM S: Notified by RN of RUQ pain. Patient reports pain is 2/10 and started about an hour ago. Describes it as dull and achy. Denies nausea but does not have an appetite. Reports she last had Tylenol shortly before that, at about 2019. The patient denies fevers/chills, CADENA/vision changes, chest pain, shortness of breath, excessive vaginal bleeding. She does endorse pain at her incision site. O: 02/07/23 1905 02/07/23 2000 02/07/23 2100 02/07/23 2200 BP: 127/71 126/77 129/74 Pulse: 75 81 91 85 Resp: 20 18 Temp: 37.6 ?C (99.7 ?F) 37 ?C (98.6 ?F) TempSrc: Oral Oral SpO2: 99% 98% General: No acute distress, patient appears comfortable Heart: Well perfused peripherally, regular rate Respiratory: Nonlabored breathing on room air Abdomen: Soft, appropriately tender to palpation, increased tenderness in RUQ, mildly distended Psych: Appropriate mood and affect Uterus: Firm below umbilicus Extremities: No calf tenderness, trace edema Incision: clean/dry/intact - bandage in place A/P: Patient is a 22 yo now s/p LTCS on 02/07 for HELLP. #RUQ pain in the setting of HELLP - s/p Tylenol 1000mg at 2011, has not receieved oxycodone because pain overall mild - BP normotensive, on mag until 0100 on 02/08 - will draw pm labs early, scheduled for 2300 Hgb 10.4->8.7->8.5 -> 8.8 Plt 40->2U->59->74 ->120 AST/ALT 221/205->113/144->81/129 -> 74/131 Cr 0.56->0.51->0.49->0.49 -> 0.55 SIGNATURE: Ros Mata MD PATIENT NAME: Nestor Lopez DATE: February 07, 2023 TIME: 10:13 PM PAGER/CONTACT #: [phone] SCRIBING MACHINE OPERATOR Service Pager: For questions or concerns regarding: -Obstetric patients or consults Mon-Mon-, please page #[phone] -Gynecology patients or consults Mon-Mon-, please page #[phone] -Postoperative patients Mon-Mon-, please directly page the resident caring for the patient After 5P and on holidays and weekends, please page #[phone] NoteHNO ID: [id number] Author: Nabil Contreras MD Service: Hospital Medicine Author Type: Resident Type: Plan of Care Filed: 02/07/2023 4:58 PM Note Text: Given preceding sodium of 130 and consistency of serum sodium on repeat labs [134-134], it appears that the single reading of 120 at 5:55am was most likely either drawing or lab error. No further work-up or management is required regarding the patient's sodium at this time. As such, House Medicine will sign-off at this time. Discussed with OBGYN Resident as well. If any other medical issues arise, we are open to assisting with management at that time. [place] [facility] can be reached at Pager: [phone]. Nabil Contreras MD Internal Medicine PGY-3 February 07, 2023 4:57 [facility]07-04-2023 NoteHNO ID: [id number] Author: Kimberly Rueda MD Service: Obstetrics Author Type: Resident Type: Progress Notes Filed: 02/07/2023 10:00 AM Note Text: Discussion had with nursing, 6AM lab drawn off the IV. Sodium value likely artificially low in this setting. Repeat sodium 8AM was 134. Will continue to monitor with 12PM labs. Kimberly Rueda MD OBGYN PGY-2 Pager #[phone] February 07, 2023 9:58 [facility] NoteHNO ID: [id number] Author: Pedro Pan APRN.BRIDGE GANG WORKER Service: Anesthesiology Author Type: Nurse Cleat Blanker Type: Anesthesia Procedure Notes Filed: 02/07/2023 1:15 AM Note Text: ANESTHESIOLOGY PROCEDURE NOTE Airway General Information Procedure Start Time/Medication Administration: 02/07/2023 1:06 AM Patient location during procedure: OR Timeout Performed Pre-procedure: timeout performed Consent Obtained: Yes Patient identity confirmed: arm band and patient Staffing BRIDGE GANG WORKER: Pedro Pan APRN.BRIDGE GANG WORKER Performed by: BRIDGE GANG WORKER Indications and Patient Condition Indications for airway management: anesthesia Preoxygenated: yes anesthesia circuit Patient position: sniffing Method: asleep Final Airway Details Final airway type: endotracheal airway Final Endotracheal Airway: ETT Cuffed: yes Successful intubation technique: video laryngoscopy Devices used: [employer] Endotracheal tube insertion site: oral Blade: Tomy Blade size: #3 ETT size (mm): 7.0 Measured from: lips Measurement (cm): 21 Placement verified by: chest auscultation and capnometry Cormack-Lehane Classification: grade I - full view of glottis Number of attempts at approach: 1 SIGNATURE: Pedro Pan APRN.BRIDGE GANG WORKER PATIENT NAME: Nestor Berryain DATE: February 07, 2023 TIME: 1:15 AM CSN: [id number] History and physical note Author Mary Arredondo [facility] February 06, 2023 10:04pm Note Date/Time February 06, 2023 8:13p [facility] Medical Records Department [address] [place] [address] OB Triage Physician Note 02/06/232008 MR#: [id number] Acct: [id number] Name: NESTOR LOPEZ Rep #:[id number] 1 : 2000 22 From: Mary Arredondo DO PCP: Dr. Betsy Coleman DO Status:REG CLI Y Location: [id number] HPI - General General Date of Service: 02/06/23 Chief Complaint: abdominal pain HPI Narrative NESTOR LOPEZ, is a 22 F who presents with lower abdominal pain. Has been evaluated in the office twice for lower abdominal pain. She states she has had this pain for about 1 week. It is a constant sharp pain across entire lower abdomen and it wraps around into her back and up into her rib cage. The pain does not come and go. Nothing makes the pain better or worse. She has had nauseain the , but some vomiting today. She has had 3 episodes of emesis and states she cannot tolerate PO. Oral temp of 100.4 at home. No sick contacts or new foods. She denies constipation, diarrhea, dysuria, LOF, VB. Good FM. No CADENA or vision changes. [facility] Medical History (Updated 02/06/23 @ 21:[address] Mary Arredondo, ) Lab test negative for COVID-19 virus Pilonidal cyst with abscess URI (upper respiratory infection) Home Medications escitalopram oxalate 5 mg tablet (Lexapro) 5 mg PO DAILY 01/07/21 [History Last Taken Unknown] trazodone 50 mg tablet 50 mg PO DAILY 01/07/21 [History Last Taken Unknown] oornhsbd-khp-Nf-FA 1 mg tablet tab PO 02/04/23 [History Last Taken Unknown] yfpgmhcv-tjw-Mg-FA 1 mg tablet tab PO 02/04/23 [History Last Taken 02/04/23] Allergy/AdvReac Type Severity Reaction Status Date / Time Seasonal Allergies: Uncoded Allergy Unknown NEEDS Verified 02/06/23 20:27 FOLLOW-UP Social History Smoking Status: Never smoker Physical Exam Const alert and no apparent distress General Appearance: comfortable HEENT normocephalic GI soft to palpation, non-tender and non-distended GI Narrative: Non acute, no rebounding, no guarding, no rigidity NST FHR Rate Baby A Baseline: 150 Variability:: Moderate Accelerations:: None Decelerations:: None NST Reactive:: Appropriate for gestational age Assessment & Plan (1) 29 weeks gestation of : PLAN: Bedside TAUS- vertex presentation, normal MVP, normal appearing placenta. Labs drawn given abd pain, temp 99, nausea and vomiting. Concern for HELLP, acute fatty liver, or TTP based on lab results. Start mag gtt and BMZ x 1 given.Discussed patient and plan of care with MFM at [facility] who accepts transfer. Will send by life flight given acuity. (2) Abdominal pain affecting : 02/06/232203 <Electronically signed by Mary Arredondo DO> Date _ Mary Arredondo DO Cosigner Signature (if applicable): Date CC: Dr. Betsy Coleman DO; Dr. Mary Arredondo DO ~ Signed [facility] Work Phone: [phone]) 908-173007-03-2023 History of Present illness Narrative* Jean Hernandez MD - 02/06/2023 9:51 PM EDT Received call from Mary Arredondo, Band Bias Machine Operator at [place] regarding patient in urgent need of transport. 22yo at 29w0d with HELLP syndrome vs acute fatty liver of . Patient presented with N/V, mild found to have significant thrombocytopenia (plt 36, repeat plt 36), elevated transaminitis (AST/ALT 224/233), hgb 11, glucose 71, other labs pending. She was begun on magnesium gtt, and received first dose of betamethasone prior to transfer. Plan for transfer to [facility] for delivery and further management. L&D team at [facility] aware. Recommend repeat labs on admission at [facility] including CBC, CMP, coags, fibrinogen, ammonia, amylase, lipase, and urine P:Cr. Patient requires delivery regardless of diagnosis of HELLP vs AFLP. Given gestational age and remote from delivery recommend proceeding with delivery, will need to be GETA due to thrombocytopenia. Given plt < 50 prior to delivery, recommend plt transfusion. Blood bank to be made aware of patient. Patient at high risk of DIC, need for additional products. Anesthesia and NICU to be made aware. Jean Hernandez MD February 06, 2023 10:10 PM documented in this encounterCleveland Clinic Foundation07-03-2023 Miscellaneous Notes* Quick Notes - Terra Herrera APRN.CNM - 02/06/2023 10:55 AM EDT BEATA-S: Nestor Lopez is a 22 year old female who presents at 29w0d with JAX:04/24/2023, by Ultrasound for a routine visit. Good FM. Denies headache, visual changes, chest pain, shortness of breath, vaginal bleeding, leakage of fluid, or dysuria. Complaints of abdominal pain that wraps around to her back, constant for last couple of days. Went to ED and given muscle relaxer which helped but then discomfort returned. Rating pain 9/10. Having nausea and threw up this morning. Denies diarrhea or constipation. No sick contacts. O: See flow sheet Gen: No apparent distress Abd: Gravid, nontender. No CVAT CE:Closed, thick, high ASSESSMENT/PLAN: 1. 29 weeks gestation of P: 1) PTL precautions reviewed and when to call 2) RTO as scheduled 3) Reviewed no signs of labor and reviewed musculoskeletal pain. Discussed chiropractic, ice, stretching. Reassurance offered. Flexeril given for muscle discomfort. 4) Zofran for nausea. No signs of GI illness but discussed if unable to keep food down or hydrate to call or go to ED. Terar Herrera APRN.CNM documented in this encounterCleveland Clinic Foundation07-03-2023 Instructions* Patient Instructions* Matilde Cortez Ma - 02/06/2023 9:25 AM EDT SEQUENTIAL SCREENINGS [facility] offers sequential screenings for women who are interested in screenings for chromosomal abnormalities and certain defects during a . The sequential screen combinesultrasound and blood tests to determine the risk of chromosomal abnormalities, including Down's Syndrome (Trisomy 21) and Trisomy 18, as well as open neural tube defects including spina bifida. Ultrasound examination is performed between 11 weeks and 13 weeks gestational age. Blood tests are drawn after the ultrasound and again later in the between 15 and 21 weeks gestational age. Please let your physician know if you are interested in this testing. It will require an appointment withour biological technician. This is not an ultrasound performed by a physician in our office during a routine visit. SIGNS AND SYMPTOMS OF LABOR 1. Contractions every 10 minutes or more often 2. Clear, pink, or brownish fluid (water) leaking from vagina 3. Feeling that baby is pushing down, pressure 4. Low, dull backache 5. Cramps that feel like a period 6. Cramps with or without diarrhea If you notice any of the above symptoms, contact our office at [phone] and ask to speak with anurse. After hours, you can call doctors registry at [phone] OR call [facility] at [phone] ask to have the doctor construction lineman paged. If you consider this an emergency, dial 9-4-3 or go to your nearest emergency department. NEED HELP? Are you dealing with a violent or abusive relationship? Are you a victim of rape or sexual assult? Call [facility] ([place]) 24 hour Crisis Hotline: 417.811.3093 or 116-509-1046. MANUAL Your Guide to a Healthy manual is now on-line. Visit [email or web address] to download your free copy documented in this encounterCleveland Clinic Foundation06-29-2023 Miscellaneous Notes* Telephone Encounter - Sabrina Ayala RN - 02/02/2023 12:13 PM EDT Patient notified. Appointment given. Sabrina Ayala RN * Telephone Encounter - Mary Arredondo MD - 02/02/2023 11:51 AM EDT Ok if still having persistent pain should be evaluated today. Would have to come around 4.20 If fevers, chills, vomiting, severe pain, bleeding, lof, ctx's it is best to go to triage * Telephone Encounter - Luda Amin LPN - 02/02/2023 10:00 AM EDT 28w3d Pt calling and stated that she spoke with Shea re: severe abd. Pain last night. Pt stated that she had been told to try tylenol and contact the office this morning. Pt stated that she was able tosleep after taking Tylenol around 11 last night. Pt stated that she has not taken any today so far.Pain is located in her lower abd, around her sides and into her kidney area. Pt denies any dysuria, increased frequency or urgency, no LOF, no VB. She reports that baby is moving as per usual. Afebrile. Pt encouraged to push fluids, pt has not taken any in as of this call, Tylenol for pain relief. Please see pended order below and further advise. Luda Amin LPN documented in this encounterCleveland Clinic Foundation06-28-2023 History of Present illness Narrative* Mimi Bills RN - 02/01/2023 11:10 AM EDT Nestor Lopez 22 year old is here for her injection of Rhophylac. Nestor Lopez Antibody Screen (no units) Date Value 01/30/2023 Negative Nestor Lopez is RH Negative Rhophylac was given without incident. See immunizations for details of immunizations administered today. Provider Shea Dykes APRN.CNM was present in office at time of injection Nestor Lopez was given her Rhophylac pocket card. Mimi Bills RN Patient identified by name and date of . Nestor Lopez presents today for a vaccination of Tdap. Patient denies an allergy to latex: yes Patient denies a severe (life-threatening) allergy to a previous dose of Tdap, DTP, DTaP, DT or Td vaccine. Yes Patient denies history of epilepsy or neurological problems: Yes Patient is afebrile and denies being moderately or severely ill: Yes Patient denies history of Guillain-Sedro Woolley Syndrome (a severe paralytic illness): Yes Tdap Adacel injection was given without incident. See immunizations for details of immunizations administered today. VIS sheet provided: Yes Provider Shea Dykes APRN.CNM was present in office at time of injection. Mimi Bills RN documented in this encounterCleveland Clinic Foundation06-28-2023 Miscellaneous Notes* Telephone Encounter - Terra Herrera APRN.CNM - 02/01/2023 10:45 AM EDT Signed. Terra Herrera APRN.CNM * Telephone Encounter - Mimi Bills RN - 02/01/2023 10:34 AM EDT Patient has nurse visit today. Please file orders. Mimi Bills RN documented in this encounterCleveland Clinic Foundation06-27-2023 Miscellaneous Notes* Quick Notes - Terra Herrera APRN.CNM - 01/31/2023 9:16 AM EDT BEATA-S: Nestor Lopez is a 22 year old female who presents at 28 weeks with JAX:04/24/2023, by Ultrasound for a routine visit. Good FM. Denies headache, visual changes, chest pain, shortness of breath,vaginal bleeding, leakage of fluid, or dysuria. Feeling well, no complaints. O: See flow sheet Gen: No apparent distress Abd: Gravid, nontender ASSESSMENT/PLAN: 1. 28 weeks gestation of - 1 hour GCT, CBC, and RPR today - A negative-do not have access to Rhogam at this time, will have patient return for injection. - TDAP next visit. - LARC form reviewed and signed. Patient declines - Depression screen negative - Opioid screen negative - plan form discussed and given to patient. Patient desires unmedicated - PTL precautions and kick counts reviewed - RTO- 2 weeks or sooner if needed Terra Herrera APRN.CNM documented in this encounterCleveland Clinic Foundation06-26-2023 Miscellaneous Notes* Telephone Encounter - Shea Dykes APRN.CNM - 01/30/2023 4:34 PM EDT Sorry! Orders filed. Shea Dykes APRN.CNM * Telephone Encounter - Mimi Bills RN - 01/30/2023 4:12 PM EDT Please file order. Mimi Bills RN * Telephone Encounter - Mimi Bills RN - 01/30/2023 4:11 PM EDT ----- Message from Shea Dykes APRN.CNM sent at 01/30/2023 3:45 PM EDT ----- Results reviewed. 1 hour GCT - elevated. Patient will need to complete a fasting 3 hour GTT. Ordersplaced. Please assist with scheduling. Shea Dykes APRN.CNM documented in this encounterCleveland Clinic Foundation06-26-2023 Instructions* Patient Instructions* Mark Riojas Cma - 01/30/2023 11:09 AM EDT SEQUENTIAL SCREENINGS [facility] offers sequential screenings for women who are interested in screenings for chromosomal abnormalities and certain defects during a . The sequential screen combinesultrasound and blood tests to determine the risk of chromosomal abnormalities, including Down's Syndrome (Trisomy 21) and Trisomy 18, as well as open neural tube defects including spina bifida. Ultrasound examination is performed between 11 weeks and 13 weeks gestational age. Blood tests are drawn after the ultrasound and again later in the between 15 and 21 weeks gestational age. Please let your physician know if you are interested in this testing. It will require an appointment withour biological technician. This is not an ultrasound performed by a physician in our office during a routine visit. SIGNS AND SYMPTOMS OF LABOR 1. Contractions every 10 minutes or more often 2. Clear, pink, or brownish fluid (water) leaking from vagina 3. Feeling that baby is pushing down, pressure 4. Low, dull backache 5. Cramps that feel like a period 6. Cramps with or without diarrhea If you notice any of the above symptoms, contact our office at [phone] and ask to speak with anurse. After hours, you can call doctors registry at [phone] OR call [facility] at [phone] ask to have the doctor construction lineman paged. If you consider this an emergency, dial 9-1-7 or go to your nearest emergency department. NEED HELP? Are you dealing with a violent or abusive relationship? Are you a victim of rape or sexual assult? Call [facility] ([place]) 24 hour Crisis Hotline: 721.386.6532 or 450-343-2432. MANUAL Your Guide to a Healthy manual is now on-line. Visit [email or web address] to download your free copy documented in this encounterCleveland Clinic Foundation06-20-2023 Miscellaneous Notes* Telephone Encounter - Terra Herrera APRN.CNM - 01/24/2023 12:46 PM EDT Order signed, thanks for catching this. Terra Herrera APRN.CNM * Telephone Encounter - Sabrina Ayala RN - 01/24/2023 10:55 AM EDT Patient rescheduled to Monday. Lab appointment scheduled. Please file pending order to attach to her lab appointment. Thank you. Sabrina Ayala RN * Telephone Encounter - Betsy Rosa MA - 01/24/2023 10:28 AM EDT Pt scheduled to see SW on Monday, patient will be 27wks 4days, I sent pt a [employer] msg to call to be moved to Monday so she can get rhogam at that visit. Patient will also need an order for a type and screen filed. Order pended. Betsy Rosa MA documented in this encounterCleveland Clinic Foundation05-02-2023 Miscellaneous Notes* Result Encounter Note - Berenice Ovalle MD - 12/06/2022 4:05 PM EDT Anatomy ultrasound reviewed. No abnormalities identified. Follow up as clinically indicated. Pleaseplace copy in ob chart. Berenice Ovalle MD documented in this encounterCleveland Clinic Foundation05-02-2023 Miscellaneous Notes* Quick Notes - Terra Herrera APRN.CNM - 12/06/2022 10:57 AM EDT BEATA-S: Nestor Lopez is a 22 year old female who presents at 20w1d with JAX: 04/24/2023, by Ultrasound for a routine visit. Good FM. Denies headache, visual changes, chest pain, shortness of breath, vaginal bleeding, leakage of fluid, or dysuria. Feeling well, no complaints. O: See flow sheet Gen: No apparent distress Abd: Gravid, nontender S=D, -6lb ASSESSMENT/PLAN: 1. 20 weeks gestation of P: 1) PTL precautions reviewed and when to call 2) RTO in 4 weeks 3) ASA 162mg PO once daily. Did not start. Reviewed recommendations and for prevention. Prescription sent. 4) Anatomy US today, awaiting results. Terra Herrera APRN.CNM Medical Decision Making: Problems: Low: Stable chronic illness Data: Unique source(s) for external note(s) reviewed: 1 Unique test result(s) reviewed: 2 Unique test(s) ordered: 1 Assessment requiring an independent historian(s) Risk: Moderate: Drug management Medical Decision Making Level: 4 - Moderate documented in this encounterCleveland Clinic Foundation05-02-2023 Instructions* Patient Instructions* Terra Herrera APRN.CNM - 12/06/2022 10:49 AM EDT Aspirin 162 mg once daily by mouth (2-81 mg tablets) SIGNS AND SYMPTOMS OF LABOR 1. Contractions every 10 minutes or more often 2. Clear, pink, or brownish fluid (water) leaking from vagina 3. Feeling that baby is pushing down, pressure 4. Low, dull backache 5. Cramps that feel like a period 6. Cramps with or without diarrhea If you notice any of the above symptoms, contact our office at [phone] and ask to speak with anurse. After hours, you can call doctors registry at [phone] OR call [facility] at [phone] ask to have the doctor construction lineman paged. If you consider this an emergency, dial 4-1-2 or go to your nearest emergency department. NEED HELP? Are you dealing with a violent or abusive relationship? Are you a victim of rape or sexual assult? Call [facility] ([place]) 24 hour Crisis Hotline: 228.894.5725 or 814-831-9092. MANUAL Your Guide to a Healthy manual is now on-line. Visit [email or web address] to download your free copy documented in this encounterCleveland Clinic Foundation03-28-2023 Miscellaneous Notes* Quick Notes - Partha Cornelius MD - 11/01/2022 10:32 AM EDT KJ - No VB/LOF/ctxs. A&P: Schedule anatomy US AFP ordered Partha Cornelius MD documented in this encounterCleveland Clinic Foundation03-28-2023 Instructions* Patient Instructions* Josee Conroy Ma - 11/01/2022 10:10 AM EDT SEQUENTIAL SCREENINGS [facility] offers sequential screenings for women who are interested in screenings for chromosomal abnormalities and certain defects during a . The sequential screen combinesultrasound and blood tests to determine the risk of chromosomal abnormalities, including Down's Syndrome (Trisomy 21) and Trisomy 18, as well as open neural tube defects including spina bifida. Ultrasound examination is performed between 11 weeks and 13 weeks gestational age. Blood tests are drawn after the ultrasound and again later in the between 15 and 21 weeks gestational age. Please let your physician know if you are interested in this testing. It will require an appointment withour biological technician. This is not an ultrasound performed by a physician in our office during a routine visit. SIGNS AND SYMPTOMS OF LABOR 1. Contractions every 10 minutes or more often 2. Clear, pink, or brownish fluid (water) leaking from vagina 3. Feeling that baby is pushing down, pressure 4. Low, dull backache 5. Cramps that feel like a period 6. Cramps with or without diarrhea If you notice any of the above symptoms, contact our office at [phone] and ask to speak with anurse. After hours, you can call doctors registry at [phone] OR call [facility] at [phone] ask to have the doctor construction lineman paged. If you consider this an emergency, dial or go to your nearest emergency department. NEED HELP? Are you dealing with a violent or abusive relationship? Are you a victim of rape or sexual assult? Call [facility] ([place]) 24 hour Crisis Hotline: 324.562.6712 or 079-569-4418. MANUAL Your Guide to a Healthy manual is now on-line. Visit [email or web address] to download your free copy documented in this encounterCleveland Clinic Foundation03-09-2023 Miscellaneous Notes* Telephone Encounter - Ana Flores RN - 10/13/2022 11:17 AM EST Called Nestor Lopez and identified by name and date of . Nestor Lopze was informed of negative Non-Invasive Testing (NIPT) results for Trisomy 21, Trisomy 18 and Trisomy 13. Patientwas also notified of the result of no sex chromosome aneuploidy detected. Patient wishes to know sex, which is reported as: female. Reviewed with patient Nestor Lopez that NIPT is considered screening and not diagnostic, so this result greatly reduces, but does not eliminate the chance that the fetus could have trisomy 21, trisomy 18, trisomy 13 or sex chromosome aneuploidy. Nestor Lopez indicated understanding this information. Patient advised to follow up with AFP neural tube defect screening (blood draw) at 16-18 weeksgestation and 18-20 week detailed anatomy ultrasound. Also instructed to follow-up with Primary OB Provider. Ana Flores RN documented in this encounterCleveland Clinic Foundation03-06-2023 History of Past illness Narrative* Problem Noted Date Diagnosed Date Resolved Date Rh negative state in antepar melvin period, first trimester 10/10/2022 02/06/2023 Patient request for diagnostic testing 09/08/2022 02/06/2023 Overview: 09/08/2022 Patient desires aneuploidy screening. Contact information for [facility] given to patient to check on insurance coverage. Patient considering genetic carrier screening testing. 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 09/08/2022 On isotretinoin therapy 11/30/2016 02/0 09/2022 Concussion without loss of consciousness 09/13/2016 09/08/2022 Back pain 05/01/2014 12/19/2014 Acne 05/01/2014 03/17/2017 Anxiety 05/11/2013 03/17/2017 Heart murmur 05/11/2013 09/08/2022 Overview: 8 - saw cardiology, who diagnosed as functional Headache(784.0) 05/11/2013 03/17/2017 Fracture of metacarpal base, first, left hand, closed 08/31/2010 01/31/2013 Knee pain 05/20/2010 02/26/2013 Abdominal wall mass 12/21/2009 11/20/19 13 Constipation 05/15/2009 09/08/2022 documented as of this encounter (statuses as of 02/15/2023) [facility] History of Past illness Narrative* Problem Noted Date Diagnosed Date Resolved Date Rh negative state in antepar melvin period, first trimester 10/10/2022 02/06/2023 Patient request for diagnostic testing 09/08/2022 02/06/2023 Overview: 09/08/2022 Patient desires aneuploidy screening. Contact information for [facility] given to patient to check on insurance coverage. Patient considering genetic carrier screening testing. 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 09/08/2022 On isotretinoin therapy 11/30/2016 02/09/2022 Concussion without loss of consciousness 09/13/2016 09/08/2022 Back pain 05/01/2014 12/19/2014 Acne 05/01/2014 03/17/2017 Anxiety 05/11/2013 03/17/2017 Heart murmur 05/11/2013 09/08/2022 Overview: 8 - saw cardiology, who diagnosed as functional Headache(784.0) 05/11/2013 03/17/2017 Fracture of metacarpal base, first, left hand, closed 08/31/2010 01/31/2013 Knee pain 05/20/2010 02/26/2013 Abdominal wall mass 12/21/2009 11/20/19 13 Constipation 05/15/2009 09/08/2022 documented as of this encounter (statuses as of 03/20/2023) [facility]03-[facility]23 Miscellaneous Notes* Quick Notes - Berenice Ovalle MD - 10/06/2022 10:13 AM EST RR- No VB/LOF. Nausea improving. Taking PNV. D/w her aneuplody screening and limitations. Desires NIPT and CF screen. F/u in 4 weeks or prn. Berenice Ovalle MD documented in this encounterCleveland Clinic Foundation03-02-2023 Instructions* Patient Instructions* Jeanine Thomas Ma - 10/06/2022 9:46 AM EST SEQUENTIAL SCREENINGS [facility] offers sequential screenings for women who are interested in screenings for chromosomal abnormalities and certain defects during a . The sequential screen combinesultrasound and blood tests to determine the risk of chromosomal abnormalities, including Down's Syndrome (Trisomy 21) and Trisomy 18, as well as open neural tube defects including spina bifida. Ultrasound examination is performed between 11 weeks and 13 weeks gestational age. Blood tests are drawn after the ultrasound and again later in the between 15 and 21 weeks gestational age. Please let your physician know if you are interested in this testing. It will require an appointment withour biological technician. This is not an ultrasound performed by a physician in our office during a routine visit. SIGNS AND SYMPTOMS OF LABOR 1. Contractions every 10 minutes or more often 2. Clear, pink, or brownish fluid (water) leaking from vagina 3. Feeling that baby is pushing down, pressure 4. Low, dull backache 5. Cramps that feel like a period 6. Cramps with or without diarrhea If you notice any of the above symptoms, contact our office at [phone] and ask to speak with anurse. After hours, you can call [email or web address] registry at [phone] OR call [facility] at [phone] ask to have the doctor construction lineman paged. If you consider this an emergency, dial 6-3-8 or go to your nearest emergency department. NEED HELP? Are you dealing with a violent or abusive relationship? Are you a victim of rape or sexual assult? Call [facility] ([place]) 24 hour Crisis Hotline: 827.690.1139 or 081-463-2115. MANUAL Your Guide to a Healthy manual is now on-line. Visit [email or web address] to download your free copy documented in this encounterCleveland Clinic Foundation02-02-2023 History of Present illness Narrative* Berenice Ovalle MD - 09/08/2022 10:29 AM EST INITIAL OB ASSESSMENT OB Provider: Berenice Ovalle MD HPI: Nestor Lopez is a 22 year old female here to establish Obstetrical Care. Patient'slast menstrual period was 07/13/2022 (exact date). from OB Dating Form. Cycle length: 28-30 days Complaints: None was planned. OB History T0 L0 SAB0 IAB0 Ectopic0 Multiple0 Live Births0 Prior : never History of 4th degree laceration: No Patient's Risk Screening for delivery: History of abnormal pap: No Prior treatment for cervical dysplasia: none. History of STDs: None Tobacco use: No Caffeine use: No Drug use: No Alcohol use: No Multivitamin with Folic acid: Yes Occupation: works at [employer]: No Would refuse blood transfusion if medically necessary: No No weight on file for this encounter. Patient BMI over 30? No Marital Status:Co-habitating Partner: Name: Marciano Age: 22 Occupation: [employer] employee Gender: male History of STDs: None PAST MEDICAL HISTORY Diagnosis Date Acne 08/07/2013 Anxiety 08/07/2012 anxiety Back pain 08/07/2014 Resolved breast mass 07/2022 Left Constipation 08/07/2008 Headache 08/07/2012 Heart murmur 05/07/2013 Knee pain Migraine Thumb fracture left age 11 yrs PAST SURGICAL HISTORY Procedure Laterality Date PAST SURGICAL HISTORY OF 12/15/2020 Incision and Drainage, Pilonidal Cyst Current Outpatient Medications on File Prior to Visit Medication Sig Drospirenone-Ethinyl Estradiol 3-0.03 mg per tablet Take 1 tablet by mouth once daily. (Patient nottaking: No sig reported) escitalopram oxalate (LEXAPRO) 20 mg tablet Take 1 tablet by mouth once daily. (Patient not taking:No sig reported) No current facility-administered medications on file prior to visit. Review of Systems: GENERAL: Negative for: Fever or Chills HEENT: Negative for: Headache, Impaired Vision, Ringing in Ears, Nosebleeds NECK: Negative for: Swelling, Pain, Stiffness RESPIRATORY: Negative for: Cough, Shortness of breath, Wheezing GASTROINTESTINAL: Negative for: Heartburn, Constipation, Diarrhea, Blood in stool, Vomiting MUSCULOSKELETAL: Negative for: Muscle or joint pain, stiffness, Joint swelling NEUROLOGIC/PSYCHIATRIC: Negative for: Weakness, Paralysis, Numbness, Tingling, Tremor, Anxiety, Depression, Memory loss SKIN: Negative for: Rash, Itching GENITOURINARY: Negative for: vaginal itching, vaginal discharge, hematuria or dysuria PHYSICAL EXAM: LMP 07/13/2022 GENERAL: pleasant female in no apparent distress DERMATOLOGY: Normal, without lesions, non-icteric, and non-hirsute NECK: Supple, full range of motion, no adenopathy, and thyroid normal CHEST: Normal inspiratory effort BREAST: soft, non-tender, symmetric, no dominant mass, normal nipple-areolar complex, no lymphadenopathy, and no nipple discharge ABDOMEN: soft, non-tender, and no masses NEURO: alert and oriented x3,exam grossly non-focal PELVIS: External genitalia normal without lesions. Perineal body intact. No vaginal or cervical lesions. Cervix closed. Uterus 8 week size. No adnexal masses or tenderness. Clinical Pelvimetry: Pelvimetry clinically assessed as adequate Limited OB ultrasound exam: single intrauterine , positive cardiac activity, crown-rump length 1.3 cm cw/w 7w4d, and normal bilateral adnexa OB Risk Screening: Completed, no positive findings documented. ASSESSMENT: 22 year old at wks gestational age PLAN: 1) Patient oriented to practice. Discussed nutrition, folic acid supplementation, dietary guidelines, exercise, smoking, alcohol, caffeine, and drug use. Discussed routine OB labs including STD/HIV. Discussed aneuploidy screening options including serum screening and nuchal translucency. CF carrier screening discussed and accepted. 2) asa candiate 3) JAX adjusted today Follow up in 4 weeks or sooner prn. Berenice Ovalle MD documented in this encounterCleveland Clinic Foundation02-02-2023 Instructions* Patient Instructions* Jeanine Thomas Ma - 09/08/2022 10:29 AM EST Please select the following link to access the [facility] Your Guide to a Healthy . [email or web address] documented in this encounterCleveland Clinic Foundation02-02-2023 Miscellaneous Notes* Quick Notes - April Schmidt RN - 09/08/2022 9:27 AM EST DISTANCE HEALTH VISIT This Team Access Model visit is a phone encounter. It required patient-provider interaction for themedical decision making as documented below. Nestor Lopez is a 22 year old female seen for PNOB. Father of the baby involved. Patient has a history of anxiety treated by Dr. Coleman. She stopped her Lexapro in July 2022. Believes she is doing well off medication. Denies ever having depression. Patient desires aneuploidy screening. Contact information for [facility] given to patient to check on insurance coverage. Patient considering genetic carrier screening testing. Contact information for [employer] given to patient.Eleni JARAMILLO documented in this encounterCleveland Clinic Foundation01-10-2023 Miscellaneous Notes* Telephone Encounter - Mimi Bills RN - 08/16/2022 11:01 AM EST PNOB scheduled. Mimi Bills RN * Telephone Encounter - Betsy Rosa MA - 08/16/2022 9:00 AM EST Attempted to contact patient to schedule PNOB, voicemail box was full. [employer] message sent to patient to call office to schedule. Betsy Rosa MA documented in this encounterCleveland Clinic Foundation12-12-2022 History of Present illness Narrative* Bello Navarro MD - 07/18/2022 2:25 PM EST HISTORY AND PHYSICAL - BREAST COMPLAINT Nestor Lopez 2000 REFERRING PHYSICIAN: Self CHIEF COMPLAINT: Mass of upper inner quadrant of left breast (primary encounter diagnosis) HPI: The patient is a 22 year old female with a complaint of a palpable breast mass. The patient notes a mass in the upper inner quadrant of her left breast. The patient has noticed this mass for 1 month. She does perform a self breast exam routinely. She notes no skin changes. She denies nipple discharge. She notes no axillary masses. She notes no family history of breast problems. She notes no significant breast trauma or breast difficulties in the past. PAST MEDICAL HISTORY Diagnosis Date Acne 2013 Anxiety 2012 Back pain 2014 Resolved Constipation 2008 Headache 2012 Heart murmur 05/2013 Knee pain Thumb fracture left age 11 yrs PAST SURGICAL HISTORY Procedure Laterality Date PAST SURGICAL HISTORY OF 12/15/2020 Incision and Drainage, Pilonidal Cyst Current Outpatient Medications Medication Sig Dispense Refill Drospirenone-Ethinyl Estradiol 3-0.03 mg per tablet Take 1 tablet by mouth once daily. 84 tablet 4 escitalopram oxalate (LEXAPRO) 20 mg tablet Take 1 tablet by mouth once daily. No current facility-administered medications for this visit. ALLERGIES: Seasonal Allergies PERSONAL HISTORY: Social History Tobacco Use Smoking status: Never Smokeless tobacco: Never Vaping Use Vaping Use: Never used Substance Use Topics Alcohol use: Never Drug use: Never FAMILY HISTORY: FAMILY HISTORY Problem Relation Age of Onset Seizures Father Diabetes Maternal Grandfather Hypertension Maternal Grandfather Lipids Maternal Grandfather Cancer Paternal Grandfather Breast Cancer Other Breast Cancer Other 40 REVIEW OF SYMPTOMS: The review of systems data was entered by the nurse and reviewed by ms Nursing Notes: Gladys Maza LPN 07/15/2022 9:29 AM Signed REVIEW OF SYSTEMS: General: The patient denies fatigue, denies weight loss, denies weight gain, denies feeling hot, and denies feelings of cold. Eyes: The patient denies glaucoma, denies eye injury/surgery, does not wear glasses or contacts. Ear/Nose/Throat: The patient denies allergies, denies hayfever, denies ear infections, and denies bloody noses. Cardiovascular: The patient denies chest pain, denies heart disease, denies high blood pressure,denies cardiac stent, denies prior heart attack, denies irregular heart beat, denies high cholesterol, denies poor circulation, denies heart failure, other cardiac issues, denies claudication, denies cold feet, denies peripheral arterial stent. Respiratory: The patient denies tuberculosis, denies pneumonia, denies frequent cough, denies pulmonary embolism, denies shortness of breath, and denies coughing up blood. Gastrointestinal: The patient denies difficulty swallowing, denies acid reflux, denies ulcers, denies vomiting, denies jaundice/hepatitis, denies gallbladder problems, denies black or tarry stools, denies hemorrhoids, denies bleeding from rectum, denies diverticulitis, denies constipation, denies diarrhea, denies loss of stool control, and denies hernias. Kidney/Bladder: The patient denies kidney stones, denies urine infections, and denies bloody urine. Skin: The patient denies a history of skin cancer, denies bleeding/changing moles, and denies a history of skin rash. Neurologic: The patient denies a history of epilepsy/convulsions, denies headaches, denies head/spinal injuries, and denies stroke/TIA. Psychiatric: The patient denies psychiatric medications, denies depression, and denies voices, denies substance abuse. Endocrine: The patient denies thyroid disorders, denies diabetes, and denies hormonal problems. Hematologic: The patient denies a history of bruising, denies bleeding, and denies anemia, denies blood clots. Infections: The patient denies a history of measles and mumps, denies rheumatic fever, and denies sexually transmitted diseases. Musculoskeletal: The patient denies back pain/injury, denies back problems, denies sciatica, deniesknee/foot trouble, denies arthritis, or denies gout. When was patient's last Mammogram screening? None Last Colonoscopy: none Gladys Maza LPN PHYSICAL EXAMINATION: General: The patient is 22 year old female, well nourished, well hydrated in no acute distress. Thepatient is oriented to time, place, and person. VITALS: Blood pressure 130/78, pulse 113, temperature 36.9 C (98.4 F), height 167.6 cm (5' 6), weight 72.6 kg (160 lb), last menstrual period 01/27/2022, SpO2 99 %. Body mass index is 25.82 kg/m . HEENT: Normal cephalic, ataumatic, pupils are equally round, sclera are anicteric, mucous membranesare moist, oropharynx is clear. Neck has no masses, asymmetry or lymphadenopathy. Thyroid is unremarkable. Respiratory: Clear to auscultation and percussion. Normal respiratory excursion and pattern. Cardiac: Examination is regular rate and rhythm. Abdominal exam: Soft, nontender, with no palpable masses. No hepatosplenomegaly. No palpable hernias. Rectal exam: exam deferred Extremities: no clubbing, cyanosis or edema. No adenopathy. Breast: Visual inspection reveals no retractions, nipple inversion, or skin changes. Palpation of the right breast reveals no dominant or suspicious masses. Palpation of the left breast reveals the mass of concern at the upper inner 11:00 oclock position. The mass is round soft.. Axillary exam demonstrates no suspicious masses in either the left or right axilla. There is no nipple discharge expressed from either the left or right breast. LABORATORY VALUES: As Noted RADIOLOGIC STUDIES: As Noted Assessment IMPRESSION: Mass of upper inner quadrant of left breast (primary encounter diagnosis) PLAN: I plan to perform a ultrasound guided core biopsy of the left breast. The planned surgical procedure was discussed extensively with the patient. The risks, benefits, anticipated outcomes and possible complications were mentioned. My staff has also explained the procedure in understandable terms and the patient was given the option to take printed material concerning the planned procedure. The patient had the opportunity to ask questions concerning the planned procedure. The patient freelyconsents to the planned procedure. Diagnoses: (N63.22) Mass of upper inner quadrant of left breast (primary encounter diagnosis) Return to Clinic: The patient is instructed to follow-up with me 1 week post operatively. Bello Navarro III, MD documented in this encounterCleveland Clinic Foundation12-09-2022 Nurse Note* Gladys Maza, WIRE WEAVER CLOTH - 07/15/2022 9:28 AM EST REVIEW OF SYSTEMS: General: The patient denies fatigue, denies weight loss, denies weight gain, denies feeling hot, and denies feelings of cold. Eyes: The patient denies glaucoma, denies eye injury/surgery, does not wear glasses or contacts. Ear/Nose/Throat: The patient denies allergies, denies hayfever, denies ear infections, and denies bloody noses. Cardiovascular: The patient denies chest pain, denies heart disease, denies high blood pressure,denies cardiac stent, denies prior heart attack, denies irregular heart beat, denies high cholesterol, denies poor circulation, denies heart failure, other cardiac issues, denies claudication, denies cold feet, denies peripheral arterial stent. Respiratory: The patient denies tuberculosis, denies pneumonia, denies frequent cough, denies pulmonary embolism, denies shortness of breath, and denies coughing up blood. Gastrointestinal: The patient denies difficulty swallowing, denies acid reflux, denies ulcers, denies vomiting, denies jaundice/hepatitis, denies gallbladder problems, denies black or tarry stools, denies hemorrhoids, denies bleeding from rectum, denies diverticulitis, denies constipation, denies diarrhea, denies loss of stool control, and denies hernias. Kidney/Bladder: The patient denies kidney stones, denies urine infections, and denies bloody urine. Skin: The patient denies a history of skin cancer, denies bleeding/changing moles, and denies a history of skin rash. Neurologic: The patient denies a history of epilepsy/convulsions, denies headaches, denies head/spinal injuries, and denies stroke/TIA. Psychiatric: The patient denies psychiatric medications, denies depression, and denies voices, denies substance abuse. Endocrine: The patient denies thyroid disorders, denies diabetes, and denies hormonal problems. Hematologic: The patient denies a history of bruising, denies bleeding, and denies anemia, denies blood clots. Infections: The patient denies a history of measles and mumps, denies rheumatic fever, and denies sexually transmitted diseases. Musculoskeletal: The patient denies back pain/injury, denies back problems, denies sciatica, deniesknee/foot trouble, denies arthritis, or denies gout. When was patient's last Mammogram screening? None Last Colonoscopy: none Gladys Maza LPN documented [facility] History of Present illness Narrative* Dinorah Smith APRN.GASKET SUPERVISOR - 02/15/2022 9:27 AM EDT Nestor is a 21 year old who presents for an annual gynecologic exam without complaints. 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 Presents: alone Menses: cycles every 28 days and 5-7 days of flow. Contraception: combined hormonal contraceptives HPV vaccine: Yes Last pap smear: never Sexually active: Yes History of STDS: None Patient concerns for STD exposure: No. Time with current partner: 4 years- 1 male partner Number of lifetime partners: 3 Pain with intercourse: No Postcoital bleeding: No OB History T0 L0 SAB0 IAB0 Ectopic0 Multiple0 Live Births0 Health Science Instructor History LMP: 01/27/2022, Having periods Age at Menarche: Age at First : Age at Menopause: Health Science Instructor History Comments: Sexual Activity: Yes; Male Contraception: Pill PAST MEDICAL HISTORY Diagnosis Date Acne 2014 Anxiety 2013 Back pain 2015 Resolved Constipation 2009 Headache 2013 Heart murmur 05/2013 Knee pain Thumb fracture left age 11 yrs PAST SURGICAL HISTORY Procedure Laterality Date PAST SURGICAL HISTORY OF 12/15/2020 Incision and Drainage, Pilonidal Cyst FAMILY HISTORY Problem Relation Age of Onset Seizures Father Cancer Paternal Grandfather Diabetes Maternal Grandfather Hypertension Maternal Grandfather Lipids Maternal Grandfather SOCIAL HISTORY Social History Tobacco Use Smoking status: Never Smoker Smokeless tobacco: Never Used Vaping Use Vaping Use: Never used Substance Use Topics Alcohol use: Never Drug use: Never REVIEW OF SYSTEMS Abdomen: No bloating, early satiety, indigestion, or increased flatulence. No abdominal pain, nausea, vomiting, diarrhea, or constipation. Bladder: No dysuria, gross hematuria, urinary frequency, urinary urgency, or incontinence. Breast: No breast lumps, nipple d/c, overlying skin changes, redness or skin retraction. Allergies and current medication updated:Yes EXAM: BP 108/70 Ht 5' 6.5 (1.69m) Wt 161 lb 12.8 oz (73.4kg) LMP 01/27/2022 BMI 25.73 kg/(m^2). GENERAL: pleasant, Female in no apparent distress HEENT: Normocephalic, atraumatic, mucus membranes moist and no lesions NECK: Supple, full range of motion, no adenopathy and thyroid normal DERMATOLOGY: Normal, without lesions, non-icteric and non-hirsute BREAST: deferred CHEST: Normal inspiratory effort ABDOMEN: soft and non-tender PELVIC: deferred BIMANUAL: deferred NEURO: alert and oriented x3,exam grossly non-focal EXTREMITIES: normal ASSESSMENT/PLAN: 1) Health maintenance: Pap starting at the age of 21. Safe sex practices reviewed. Nutrition, exercise, and routine health maintenance exams reviewed. HPV vaccine completed series.. 2) Contraception: combined hormonal contraceptives. Contraceptive options reviewed and information provided. 3) STD screening: Declined STD check. 4) Follow up one year or sooner as needed. Dinorah Smith APRN.LOGAN documented in this encounterC[facility]04-24-2022 History of Present illness Narrative* Jean Adams PA-C - 11/28/2021 8:56 AM EDT This note was created using [employer]riter. Subjective Nestor Lopez is a 21 year old female. HPI Patient presents with a chief complaint of left ear pain for 2 days. She denies any cold symptoms. No congestion or cough. No sore throat. She uses Q-tips and thinks she may have done something to the ear canal. No drainage out of the ear. No fevers or chills. Review of Systems Constitutional: Negative. HENT: Positive for ear pain. Negative for congestion, ear discharge, postnasal drip, rhinorrhea andsore throat. Respiratory: Negative for cough. Cardiovascular: Negative. Gastrointestinal: Negative. Genitourinary: Negative. Musculoskeletal: Negative. All other systems reviewed and are negative. PAST MEDICAL HISTORY Diagnosis Date Acne 2013 Anxiety 2012 Back pain 2015 Resolved Constipation 2009 Headache 2012 Heart murmur 05/2013 Knee pain Thumb fracture left age 11 yrs Current Outpatient Medications Medication Sig Dispense Refill Drospirenone-Ethinyl Estradiol 3-0.03 mg per tablet Take 1 tablet by mouth once daily. 84 tablet 4 escitalopram oxalate (LEXAPRO) 20 mg tablet Take 1 tablet by mouth once daily. bxsdcmqs-ojqlzrimx-wipjncczujliqt (CORTISPORIN) 3.5-10,000-1 mg/mL-unit/mL-% otic suspension Use 3 Drops in the left ear three times daily for 7 days. 10 mL 0 traZODone (DESYREL) 50 mg tablet Take 0.5 tablets by mouth daily at bedtime. (Patient not taking: Reported on 11/28/2021 ) No current facility-administered medications for this visit. PAST SURGICAL HISTORY Procedure Laterality Date PAST SURGICAL HISTORY OF 12/15/2020 Incision and Drainage, Pilonidal Cyst FAMILY HISTORY Problem Relation Age of Onset Seizures Father Cancer Paternal Grandfather Diabetes Maternal Grandfather Hypertension Maternal Grandfather Lipids Maternal Grandfather Social History Tobacco Use Smoking status: Never Smoker Smokeless tobacco: Never Used Vaping Use Vaping Use: Never used Substance Use Topics Alcohol use: Never Drug use: Never Objective BP 116/78 Pulse 76 Temp 37.1 C (98.7 F) (Tympanic) Resp 18 Wt 74.8 kg (165 lb) LMP 01/27/2021 SpO2 98% BMI 26.63 kg/m Physical Exam Vitals reviewed. Constitutional: Appearance: Normal appearance. HENT: Head: Normocephalic and atraumatic. Right Ear: Tympanic membrane, ear canal and external ear normal. Left Ear: External ear normal. Ears: Comments: Left EAC red and swollen. TM normal. No mastoid tenderness or bogginess. Nose: Nose normal. Mouth/Throat: Mouth: Mucous membranes are moist. Pharynx: Oropharynx is clear. Cardiovascular: Rate and Rhythm: Normal rate and regular rhythm. Heart sounds: Normal heart sounds. Pulmonary: Effort: Pulmonary effort is normal. Breath sounds: Normal breath sounds. Musculoskeletal: Cervical back: Neck supple. Skin: General: Skin is warm and dry. Neurological: General: No focal deficit present. Mental Status: She is alert and oriented to person, place, and time. Assessment and Plan ASSESSMENT/PLAN: 1. Other infective acute otitis externa of left ear - ICD9: 380.10, ICD10: H60.392 Placed on Cortisporin drops. Follow-up if not improving over the next 3 to 5 days. Jean Adams PA-C documented in this encounterC[facility] Foundation04-26-2017 History of Past illness Narrative* Problem Noted Date Resolved Date Nodulocystic acne 11/30/2016 09/08/2022 On isotretinoin therapy 11/30/2016 09/08/19 23 Concussion without loss of consciousness 017 09/08/2022 Back pain 05/01/2014 12/19/2014 Acne 05/01/2014 03/17/2017 Anxiety 05/11/2013 03/17/2017 Heart murmur 05/11/2013 09/08/2022 Overview: 03/19 - saw cardiology, who diagnosed as functional Headache(784.0) 05/11/2013 03/17/2017 Fracture of metacarpal base, first, left hand, c losed 08/31/2010 01/31/2013 Knee pain 05/20/2010 02/26/2013 Abdominal wall mass 12/21/2009 11/19/2012 Constipation 05/15/2009 09/08/2022 documented as of this encounter (statuses as of 09/08/2022) [facility] of Past illness Narrative* Problem Noted Date Resolved Date Nodulocystic acne 11/30/2016 09/08/2022 On isotretinoin therapy 11/30/2016 09/08/19 23 Concussion without loss of consciousness 017 09/08/2022 Back pain 05/01/2014 12/19/2014 Acne 05/01/2014 03/17/2017 Anxiety 05/11/2013 03/17/2017 Heart murmur 05/11/2013 09/08/2022 Overview: 03/19 - saw cardiology, who diagnosed as functional Headache(784.0) 05/11/2013 03/17/2017 Fracture of metacarpal base, first, left hand, c losed 08/31/2010 01/31/2013 Knee pain 05/20/2010 02/26/2013 Abdominal wall mass 12/21/2009 11/19/2012 Constipation 05/15/2009 09/08/2022 documented as of this encounter (statuses as of 10/06/2022) [facility] of [facility] illness Narrative* Problem Noted Date Resolved Date Nodulocystic acne 11/30/2016 09/08/2022 On isotretinoin therapy 11/30/2016 09/08/19 23 Concussion without loss of consciousness 017 09/08/2022 Back pain 05/01/2014 12/19/2014 Acne 05/01/2014 03/17/2017 Anxiety 05/11/2013 03/17/2017 Heart murmur 05/11/2013 09/08/2022 Overview: 03/19 - saw cardiology, who diagnosed as functional Headache(784.0) 05/11/2013 03/17/2017 Fracture of metacarpal base, first, left hand, c losed 08/31/2010 01/31/2013 Knee pain 05/20/2010 02/26/2013 Abdominal wall mass 12/21/2009 11/19/2012 Constipation 05/15/2009 09/08/2022 documented as of this encounter (statuses as of 10/13/2022) [facility] of [facility] illness Narrative* Problem Noted Date Resolved Date Nodulocystic acne 11/30/2016 09/08/2022 On isotretinoin therapy 11/30/2016 09/08/19 23 Concussion without loss of consciousness 017 09/08/2022 Back pain 05/01/2014 12/19/2014 Acne 05/01/2014 03/17/2017 Anxiety 05/11/2013 03/17/2017 Heart murmur 05/11/2013 09/08/2022 Overview: 03/19 - saw cardiology, who diagnosed as functional Headache(784.0) 05/11/2013 03/17/2017 Fracture of metacarpal base, first, left hand, c losed 08/31/2010 01/31/2013 Knee pain 05/20/2010 02/26/2013 Abdominal wall mass 12/21/2009 11/19/2012 Constipation 05/15/2009 09/08/2022 documented as of this encounter (statuses as of 11/01/2022) [facility] of [facility] illness Narrative* Problem Noted Date Resolved Date Nodulocystic acne 11/30/2016 09/08/2022 On isotretinoin therapy 11/30/2016 09/08/19 23 Concussion without loss of consciousness 017 09/08/2022 Back pain 05/01/2014 12/19/2014 Acne 05/01/2014 03/17/2017 Anxiety 05/11/2013 03/17/2017 Heart murmur 05/11/2013 09/08/2022 Overview: 03/19 - saw cardiology, who diagnosed as functional Headache(784.0) 05/11/2013 03/17/2017 Fracture of metacarpal base, first, left hand, c losed 08/31/2010 01/31/2013 Knee pain 05/20/2010 02/26/2013 Abdominal wall mass 12/21/2009 11/19/2012 Constipation 05/15/2009 09/08/2022 documented as of this encounter (statuses as of 12/06/2022) [facility] of [facility] illness Narrative* Problem Noted Date Resolved Date Nodulocystic acne 11/30/2016 09/08/2022 On isotretinoin therapy 11/30/2016 09/08/19 23 Concussion without loss of consciousness 017 09/08/2022 Back pain 05/01/2014 12/19/2014 Acne 05/01/2014 03/17/2017 Anxiety 05/11/2013 03/17/2017 Heart murmur 05/11/2013 09/08/2022 Overview: 03/19 - saw cardiology, who diagnosed as functional Headache(784.0) 05/11/2013 03/17/2017 Fracture of metacarpal base, first, left hand, c losed 08/31/2010 01/31/2013 Knee pain 05/20/2010 02/26/2013 Abdominal wall mass 12/21/2009 11/19/2012 Constipation 05/15/2009 09/08/2022 documented as of this encounter (statuses as of 12/07/2022) [facility] illness Narrative* Problem Noted Date Resolved Date Nodulocystic acne 11/30/2016 09/08/2022 On isotretinoin therapy 11/30/2016 09/08/19 23 Concussion without loss of consciousness 017 09/08/2022 Back pain 05/01/2014 12/19/2014 Acne 05/01/2014 03/17/2017 Anxiety 05/11/2013 03/17/2017 Heart murmur 05/11/2013 09/08/2022 Overview: 03/19 - saw cardiology, who diagnosed as functional Headache(784.0) 05/11/2013 03/17/2017 Fracture of metacarpal base, first, left hand, c losed 08/31/2010 01/31/2013 Knee pain 05/20/2010 02/26/2013 Abdominal wall mass 12/21/2009 11/19/2012 Constipation 05/15/2009 09/08/2022 documented as of this encounter (statuses as of 01/25/2023) [facility] Narrative* Problem Noted Date Resolved Date Nodulocystic acne 11/30/2016 09/08/2022 On isotretinoin therapy 11/30/2016 09/08/19 23 Concussion without loss of consciousness 017 09/08/2022 Back pain 05/01/2014 12/19/2014 Acne 05/01/2014 03/17/2017 Anxiety 05/11/2013 03/17/2017 Heart murmur 05/11/2013 09/08/2022 Overview: 03/19 - saw cardiology, who diagnosed as functional Headache(784.0) 05/11/2013 03/17/2017 Fracture of metacarpal base, first, left hand, c losed 08/31/2010 01/31/2013 Knee pain 05/20/2010 02/26/2013 Abdominal wall mass 12/21/2009 11/19/2012 Constipation 05/15/2009 09/08/2022 documented as of this encounter (statuses as of 01/31/2023) [facility] Narrative* Problem Noted Date Resolved Date Nodulocystic acne 11/30/2016 09/08/2022 On isotretinoin therapy 11/30/2016 09/08/19 23 Concussion without loss of consciousness 017 09/08/2022 Back pain 05/01/2014 12/19/2014 Acne 05/01/2014 03/17/2017 Anxiety 05/11/2013 03/17/2017 Heart murmur 05/11/2013 09/08/2022 Overview: 03/19 - saw cardiology, who diagnosed as functional Headache(784.0) 05/11/2013 03/17/2017 Fracture of metacarpal base, first, left hand, c losed 08/31/2010 01/31/2013 Knee pain 05/20/2010 02/26/2013 Abdominal wall mass 12/21/2009 11/19/2012 Constipation 05/15/2009 09/08/2022 documented as of this encounter (statuses as of 02/01/2023) [place] [id number] History of Past illness Narrative* Problem Noted Date Resolved Date Nodulocystic acne 11/30/2016 09/08/2022 On isotretinoin therapy 11/30/2016 09/08/19 23 Concussion without loss of consciousness 017 09/08/2022 Back pain 05/01/2014 12/19/2014 Acne 05/01/2014 03/17/2017 Anxiety 05/11/2013 03/17/2017 Heart murmur 05/11/2013 09/08/2022 Overview: 03/19 - saw cardiology, who diagnosed as functional Headache(784.0) 05/11/2013 03/17/2017 Fracture of metacarpal base, first, left hand, c losed 08/31/2010 01/31/2013 Knee pain 05/20/2010 02/26/2013 Abdominal wall mass 12/21/2009 11/19/2012 Constipation 05/15/2009 09/08/2022 documented as of this encounter (statuses as of 02/01/2023) [address]26-2017 History of Past illness Narrative* Problem Noted Date Resolved Date Nodulocystic acne 11/30/2016 09/08/2022 On isotretinoin therapy 11/30/2016 09/08/19 23 Concussion without loss of consciousness 017 09/08/2022 Back pain 05/01/2014 12/19/2014 Acne 05/01/2014 03/17/2017 Anxiety 05/11/2013 03/17/2017 Heart murmur 05/11/2013 09/08/2022 Overview: 03/19 - saw cardiology, who diagnosed as functional Headache(784.0) 05/11/2013 03/17/2017 Fracture of metacarpal base, first, left hand, c losed 08/31/2010 01/31/2013 Knee pain 05/20/2010 02/26/2013 Abdominal wall mass 12/21/2009 11/19/2012 Constipation 05/15/2009 09/08/2022 documented as of this encounter (statuses as of 02/02/2023) [facility] Narrative* Problem Noted Date Resolved Date Nodulocystic acne 11/30/2016 09/08/2022 On isotretinoin therapy 11/30/2016 09/08/19 23 Concussion without loss of consciousness 017 09/08/2022 Back pain 05/01/2014 12/19/2014 Acne 05/01/2014 03/17/2017 Anxiety 05/11/2013 03/17/2017 Heart murmur 05/11/2013 09/08/2022 Overview: 03/19 - saw cardiology, who diagnosed as functional Headache(784.0) 05/11/2013 03/17/2017 Fracture of metacarpal base, first, left hand, c losed 08/31/2010 01/31/2013 Knee pain 05/20/2010 02/26/2013 Abdominal wall mass 12/21/2009 11/19/2012 Constipation 05/15/2009 09/08/2022 documented as of this encounter (statuses as of 02/06/2023) [facility] illness Narrative* Problem Noted Date Resolved Date Nodulocystic acne 11/30/2016 09/08/2022 On isotretinoin therapy 11/30/2016 09/08/19 23 Concussion without loss of consciousness 017 09/08/2022 Back pain 05/01/2014 12/19/2014 Acne 05/01/2014 03/17/2017 Anxiety 05/11/2013 03/17/2017 Heart murmur 05/11/2013 09/08/2022 Overview: 03/19 - saw cardiology, who diagnosed as functional Headache(784.0) 05/11/2013 03/17/2017 Fracture of metacarpal base, first, left hand, c losed 08/31/2010 01/31/2013 Knee pain 05/20/2010 02/26/2013 Abdominal wall mass 12/21/2009 11/19/2012 Constipation 05/15/2009 09/08/2022 documented as of this encounter (statuses as of 02/07/2023) [facility] Narrative* Problem Noted Date Resolved Date Back pain 05/01/2014 12/19/2014 Acne 05/01/2014 03/17/2017 Anxiety 05/11/2013 03/17/2017 Headache(784.0) 05/11/2013 03/17/2017 Fracture of metacarpal base, first, left hand, c losed 08/31/2010 01/31/2013 Knee pain 05/20/2010 02/26/2013 Abdominal wall mass 12/21/2009 11/19/2012 documented as of this encounter (statuses as of 11/28/2021) [facility] Narrative* Problem Noted Date Resolved Date Back pain 05/01/2014 12/19/2014 Acne 05/01/2014 03/17/2017 Anxiety 05/11/2013 03/17/2017 Headache(784.0) 05/11/2013 03/17/2017 Fracture of metacarpal base, first, left hand, c losed 08/31/2010 01/31/2013 Knee pain 05/20/2010 02/26/2013 Abdominal wall mass 12/21/2009 11/19/2012 documented as of this encounter (statuses as of 02/15/2022) [facility] Narrative* Problem Noted Date Resolved Date Back pain 05/01/2014 12/19/2014 Acne 05/01/2014 03/17/2017 Anxiety 05/11/2013 03/17/2017 Headache(784.0) 05/11/2013 03/17/2017 Fracture of metacarpal base, first, left hand, c losed 08/31/2010 01/31/2013 Knee pain 05/20/2010 02/26/2013 Abdominal wall mass 12/21/2009 11/19/2012 documented as of this encounter (statuses as of 07/18/2022) [facility] of [facility] illness Narrative* Problem Noted Date Resolved Date Back pain 05/01/2014 12/19/2014 Acne 05/01/2014 03/17/2017 Anxiety 05/11/2013 03/17/2017 Headache(784.0) 05/11/2013 03/17/2017 Fracture of metacarpal base, first, left hand, c losed 08/31/2010 01/31/2013 Knee pain 05/20/2010 02/26/2013 Abdominal wall mass 12/21/2009 11/19/2012 documented as of this encounter (statuses as of 08/16/2022) [facility] [place] [facility] Diagnosis Other infective acute otitis externa of left ear- Primary documented [facility] this encounter [facility] [place] [facility]* Diagnosis Encounter for gynecological examination without abnormal finding- Primary Routine gynecological examination Surveillance for control, oral contraceptives Surveillance of previously prescribed contraceptive pill documented [facility] this encounter [facility] [place] [facility]* Diagnosis Mass of upper inner quadrant of left breast- Primary documented [facility] [place] [facility]* Diagnosis Supervision of normal first , antepartum- Primary History of anxiety Personal history of other mental disorder Patient request for diagnostic testing Other specified examination [facility] [place] [facility]* Diagnosis Encounter for care in first trimester of first - Primary Encounter for supervision of normal first in first trimester Supervision of normal first 7 weeks gestation of state, incidental [facility] [place] [facility]* Diagnosis 11 weeks gestation of - Primary state, incidental Patient request for diagnostic testing Other specified examination Encounter for supervision of normal first in first trimester Supervision of normal first [facility] [place] [facility]* Diagnosis Encounter for supervision of normal first in second trimester- Primary Supervision of normal first 15 weeks gestation of state, incidental [facility] [place] [facility]* Diagnosis 20 weeks gestation of - Primary state, incidental documented in this encounter [facility] note* Diagnosis Encounter for anatomic survey- Primary Encounter for supervision of normal first in first trimester Supervision of normal first 20 weeks gestation of state, incidental documented in this encounter [facility] note* Diagnosis Rh negative state in antepartum period, first trimester- Primary documented in this encounter [facility] note* Diagnosis Abnormal glucose in , antepartum- Primary Abnormal maternal glucose tolerance, antepartum documented in this encounter [facility] note* Diagnosis 28 weeks gestation of - Primary state, incidental documented in this encounter [facility] note* Diagnosis 28 weeks gestation of - Primary state, incidental documented in this encounter [facility] note* Diagnosis Rh negative state in antepartum period- Primary Rhesus isoimmunization affecting management of mother, antepartum condition Need for vaccination Need for prophylactic vaccination and inoculation against unspecified single disease documented in this encounter [facility] note* Diagnosis Acute bilateral low back pain without sciatica- Primary documented in this encounter [facility] noteNo assessment information availableWHenry [facility] Work Phone: Evaluation note* Diagnosis 29 weeks gestation of - Primary state, incidental documented in this encounter [facility] note* Diagnosis Onset Date Resolution Status 28 weeks gestation of acute Abdominal pain affecting acute 29 weeks gestation of acute Abdominal pain affecting [facility] Work Phone: Evaluation note* Diagnosis Vaginal odor Unspecified symptom associated with female genital organs Acute vaginitis Vaginitis and vulvovaginitis, unspecified documented [facility] encounter [facility] [place] [facility]* Diagnosis Dizziness- Primary Dizziness and giddiness [facility]* Diagnosis care and examination- Primary Routine follow-up Encounter for screening for lipoid disorders Screening for lipoid disorders documented in this encounter [facility] note* Diagnosis Encounter for gynecological examination (general) (routine) without abnormal findings- Primary Anxiety neurosis Anxiety state, unspecified Mass of upper inner quadrant of left breast documented in this encounter [facility] note* Diagnosis Mass of upper inner quadrant of left breast documented [facility] [place] [facility]* Diagnosis Anxiety neurosis Anxiety state, unspecified [facility] [place] [facility]* Diagnosis Solitary cyst of left breast- Primary Solitary cyst of breast [facility] [place] [facility]* Diagnosis Cyst of left breast- Primary Encounter for initial prescription of intrauterine contraceptive device (IUD) Family history of malignant neoplasm of breast [facility] [place] [facility]* Diagnosis Encounter for initial prescription of intrauterine contraceptive device (IUD)- [facility] [place] [facility] Diagnosis Solitary cyst of left breast Solitary cyst of breast documented in this encounter [facility] for referral (narrative)* Diagnostic Procedure Only (Routine) - Authorized Specialty Diagnoses / Procedures Referred By Contac t Referred To Contact [facility] Diagnoses Mass of upper inner quadrant of left breast Procedures US BREAST LTD LT US BREAST UNI REAL TIME WITH IMAGE LIMITED Bello Navarro MD [address] [place] [id number] [facility] [address] [place] [address] Referral ID Status Reason Start Date Expiration Date Visits Requested Visits Authorized [id number] Authorized Auto-Generat ed Referral 07/15/2022 08/14/2023 1 1 [facility] for referral (narrative)* Diagnostic Procedure Only (Routine) - Authorized Specialty Diagnoses / Procedures Referred By Contac t Referred To Contact [facility] Diagnoses Mass of upper inner quadrant of left breast Procedures US BREAST LTD LEFT US BREAST UNI REAL TIME WITH IMAGE LIMITED Sandra Vizcaino MD [address] [place] [address] [facility] [address] [place] [address] Referral ID Status Reason Start Date Expiration Date Visits Requested Visits Authorized [id number] Authorized Auto-Generat ed Referral 08/27/2024 09/26/2025 1 1 [facility] for referral (narrative)No reason for referral information [facility]WH[facility] Work Phone: Reason for visit Narrative* Diagnostic Procedure Only (Routine) - Closed Specialty Diagnoses / Procedures Referred By Michaela araiza Referred To Contact [facility] Diagnoses Mass of upper inner quadrant of left breast Procedures US BREAST LTD LEFT US BREAST UNI REAL TIME WITH IMAGE LIMITED Sandra Vizcaino MD [address] [place] [address] Phone: tel: fax: [facility] [address] [place] [address] Referral ID Status Reason Start Date Expiration Date V isits Requested Visits Authorized [id number] Closed Auto-Generate d Referral 08/27/2024 09/26/2025 1 1 [facility] Advance Directives No Advanced Directives Records FoundDocuments on File Type Date Recorded 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 Advance Directive(s) Advance Directive Response Recorded Date/ Time Living Will No December 14, 2020 8 :07am Power of Appeals Court Associate Justice No December 14, 2020 8:07am Summary Purpose Family History No Family History Records Found Relationship Condition Age at Onset Recorded Date/T sahra Not Specified Diabetes mellitus Unknown Arthritis Unknown Seizure Unknown Health Concerns Problem Noted Date OB Reminders 09/08/2022 Problem Noted Date OB Reminders 09/08/2022 Problem Noted Date OB Reminders 09/08/2022 Problem Noted Date OB Reminders 09/08/2022 Problem Noted Date OB Reminders 09/08/2022 Problem Noted Date OB Reminders 09/08/2022 Problem Noted Date OB Reminders 09/08/2022 Problem Noted Date OB Reminders 09/08/2022 Infection Onset Date Last Indicated Resolved Time COVID-19 Rule-Out 12/27/2022 12/27/2022 12/27/2022 11:06 PM EDT Problem Noted Date Diagnosed Date [place] 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 Reason for Referral Specialty Diagnoses / Procedures Referred By Michaela araiza Referred To Contact [facility] Diagnoses 11 weeks gestation of Patient request for diagnostic testing Encounter for supervision of normal first in first trimester Procedures CYSTIC FIBROSIS PATHOGENIC VARIANT ANALYSIS CFTR GENE ANALYSIS COMMON VARIANTS Berenice Ovalle MD [address] [place] [address] [facility] [address] [place] [address] Referral ID Status Reason Start Date Expiration Date Visits Requested Visits Authorized [id number] Pending Review PCP Requested Referral Auto-Generate d Referral 10/06/2022 01/04/2023 1 1 Specialty Diagnoses / Procedures Referred By Michaela t Referred To Contact [facility] Diagnoses 11 weeks gestation of Patient request for diagnostic testing Encounter for supervision of normal first in first trimester Procedures OBSTETRIC ULTRASOUND WHI US PREG UTERUS AFTER 1ST TRIMEST GESTATION Berenice Ovalle MD [address] 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 9:23am Additional Source Comments Source Comments (unrecognize d section and content) In the event this informatio n is protected by the Federal Confidentiality of Alcohol and Drug Abuse Patient Records regulations: The Federal rules restrict any use of the information to criminally investigate or prosecute any alcohol or drug abuse patient.[facility]In the event this information is protected by the Federal Confidentiality of Alcohol and Drug Abuse Patient Records regulations: The Federal rules restrict any use of the information to criminally investigate or prosecute any alcohol or drug abuse patient.[facility] FoundationIn the event this information is protected by the Federal Confidentiality of Alcohol and Drug Abuse Patient Records regulations: The Federal rules restrict any use of the information to criminally investigate or prosecute any alcohol or drug abuse patient.[facility] FoundationIn the event this information is protected by the Federal Confidentiality of Alcohol and Drug Abuse Patient Records regulations: The Federal rules restrict any use of the information to criminally investigate or prosecute any alcohol or drug abuse patient.[facility] FoundationIn the event this information is protected by the Federal Confidentiality of Alcohol and Drug Abuse Patient Records regulations: The Federal rules restrict any use of the information to criminally investigate or prosecute any alcohol or drug abuse patient.[facility] FoundationIn the event this information is protected by the Federal Confidentiality of Alcohol and Drug Abuse Patient Records regulations: The Federal rules restrict any use of the information to criminally investigate or prosecute any alcohol or drug abuse patient.[facility] FoundationIn the event this information is protected by the Federal Confidentiality of Alcohol and Drug Abuse Patient Records regulations: The Federal rules restrict any use of the information to criminally investigate or prosecute any alcohol or drug abuse patient.[facility] FoundationIn the event this information is protected by the Federal Confidentiality of Alcohol and Drug Abuse Patient Records regulations: The Federal rules restrict any use of the information to criminally investigate or prosecute any alcohol or drug abuse patient.[facility] FoundationIn the event this information is protected by the Federal Confidentiality of Alcohol and Drug Abuse Patient Records regulations: The Federal rules restrict any use of the information to criminally investigate or prosecute any alcohol or drug abuse patient.[facility] FoundationIn the event this information is protected by the Federal Confidentiality of Alcohol and Drug Abuse Patient Records regulations: The Federal rules restrict any use of the information to criminally investigate or prosecute any alcohol or drug abuse patient.[facility] FoundationIn the event this information is protected by the Federal Confidentiality of Alcohol and Drug Abuse Patient Records regulations: The Federal rules restrict any use of the information to criminally investigate or prosecute any alcohol or drug abuse patient.[facility] FoundationIn the event this information is protected by the Federal Confidentiality of Alcohol and Drug Abuse Patient Records regulations: The Federal rules restrict any use of the information to criminally investigate or prosecute any alcohol or drug abuse patient.[facility] FoundationIn the event this information is protected by the Federal Confidentiality of Alcohol and Drug Abuse Patient Records regulations: The Federal rules restrict any use of the information to criminally investigate or prosecute any alcohol or drug abuse patient.[facility] FoundationIn the event this information is protected by the Federal Confidentiality of Alcohol and Drug Abuse Patient Records regulations: The Federal rules restrict any use of the information to criminally investigate or prosecute any alcohol or drug abuse patient.[facility] FoundationIn the event this information is protected by the Federal Confidentiality of Alcohol and Drug Abuse Patient Records regulations: The Federal rules restrict any use of the information to criminally investigate or prosecute any alcohol or drug abuse patient.[facility] FoundationIn the event this information is protected by the Federal Confidentiality of Alcohol and Drug Abuse Patient Records regulations: The Federal rules restrict any use of the information to criminally investigate or prosecute any alcohol or drug abuse patient.[facility] FoundationIn the event this information is protected by the Federal Confidentiality of Alcohol and Drug Abuse Patient Records regulations: The Federal rules restrict any use of the information to criminally investigate or prosecute any alcohol or drug abuse patient.[facility] FoundationIn the event this information is protected by the Federal Confidentiality of Alcohol and Drug Abuse Patient Records regulations: The Federal rules restrict any use of the information to criminally investigate or prosecute any alcohol or drug abuse patient.[facility] FoundationIn the event this information is protected by the Federal Confidentiality of Alcohol and Drug Abuse Patient Records regulations: The Federal rules restrict any use of the information to criminally investigate or prosecute any alcohol or drug abuse patient.[facility] FoundationIn the event this information is protected by the Federal Confidentiality of Alcohol and Drug Abuse Patient Records regulations: The Federal rules restrict any use of the information to criminally investigate or prosecute any alcohol or drug abuse patient.[facility] FoundationIn the event this information is protected by the Federal Confidentiality of Alcohol and Drug Abuse Patient Records regulations: The Federal rules restrict any use of the information to criminally investigate or prosecute any alcohol or drug abuse patient.[facility] FoundationIn the event this information is protected by the Federal Confidentiality of Alcohol and Drug Abuse Patient Records regulations: The Federal rules restrict any use of the information to criminally investigate or prosecute any alcohol or drug abuse patient.[facility] FoundationIn the event this information is protected by the Federal Confidentiality of Alcohol and Drug Abuse Patient Records regulations: The Federal rules restrict any use of the information to criminally investigate or prosecute any alcohol or drug abuse patient.[facility] FoundationIn the event this information is protected by the Federal Confidentiality of Alcohol and Drug Abuse Patient Records regulations: The Federal rules restrict any use of the information to criminally investigate or prosecute any alcohol or drug abuse patient.[facility] FoundationIn the event this information is protected by the Federal Confidentiality of Alcohol and Drug Abuse Patient Records regulations: The Federal rules restrict any use of the information to criminally investigate or prosecute any alcohol or drug abuse patient.[facility] FoundationIn the event this information is protected by the Federal Confidentiality of Alcohol and Drug Abuse Patient Records regulations: The Federal rules restrict any use of the information to criminally investigate or prosecute any alcohol or drug abuse patient.[facility] FoundationIn the event this information is protected by the Federal Confidentiality of Alcohol and Drug Abuse Patient Records regulations: The Federal rules restrict any use of the information to criminally investigate or prosecute any alcohol or drug abuse patient.[facility] FoundationIn the event this information is protected by the Federal Confidentiality of Alcohol and Drug Abuse Patient Records regulations: The Federal rules restrict any use of the information to criminally investigate or prosecute any alcohol or drug abuse patient.[facility] FoundationIn the event this information is protected by the Federal Confidentiality of Alcohol and Drug Abuse Patient Records regulations: The Federal rules restrict any use of the information to criminally investigate or prosecute any alcohol or drug abuse patient.[facility] FoundationIn the event this information is protected by the Federal Confidentiality of Alcohol and Drug Abuse Patient Records regulations: The Federal rules restrict any use of the information to criminally investigate or prosecute any alcohol or drug abuse patient.[facility] Reason for Visit (unrecogniz ed section and content) Reason Comments Ear Pain left ear pain x 2 da ys Reason Comments Well Woman Reason Comments Consult Left breast Reason Comments Appointment Reason Comments Care Reason Comments Initial OB Visit Reason Onset Date Comments Care 10/06/2022 Reason Comments NIPT results Reason Onset Date Comments Care 11/01/2022 Reason Onset Date Comments Care 12/06/2022 Reason Comments US Specialty Diagnoses / Procedures Referred By Contac t Referred To Contact [facility] Diagnoses 11 weeks gestation of Patient request for diagnostic testing Encounter for supervision of normal first in first trimester Procedures OBSTETRIC ULTRASOUND WHI US PREG UTERUS AFTER 1ST TRIMEST GESTATION Berenice Ovalle MD [address] [place] [address] [facility] [address] [place] [address] Referral ID Status Reason Start Date Expiration Date V isits Requested Visits Authorized [id number] Closed Auto-Generate d Referral 10/06/2022 10/06/2023 1 1 Reason Comments Results Reason Onset Date Comments Care 01/30/2023 Reason Comments Orders Reason Comments OB Pain Reason Onset Date Comments Care 02/06/2023 Reason Comments Early Reason Comments Routine Reason Comments Yearly Exam Reason Comments Med Change Request Reason Comments Breast Problem Reason Comments Refill Request Reason Comments Radiology US Specialty Diagnoses / Procedures Referred By Contac t Referred To Contact [facility] Diagnoses Solitary cyst of left breast Procedures US BREAST LTD LEFT US BREAST UNI REAL TIME WITH IMAGE LIMITED Sandra Vizcaino MD [address] [place] [address] Phone: tel: fax: [facility] [address] [place] [address] Referral ID Status Reason Start Date Expiration Date V isits Requested Visits Authorized [id number] Closed Auto-Generate d Referral 03/18/2025 10/18/2025 1 1 INFORMATION SOURCE (unrecogn ized section and content) DATE CREATED AUTHOR 03/10/2022 [facility] DATE CREATED AUTHOR AUTHOR'S ORGANIZ ATION 02/07/2023 [facility] DATE CREATED AUTHOR AUTHOR'S ORGANIZ ATION 02/12/2023 [facility] DATE CREATED AUTHOR AUTHOR'S ORGANIZ ATION 02/18/2025 [facility] DATE CREATED AUTHOR AUTHOR'S ORGANIZ ATION 03/19/2025 [facility] Care Teams (unrecognized sec tion and content) Team Status: Active Member Role Status Dates Guerda Connelly MD Family Provider Active Dr. Betsy Coleman , DO Primary Care Provider Active Team Status: Inactive Member Role Status Dates Dr. Betsy Coleamn , Primary Care Provider Active Terra Herrera CNM Attending Provider, Referring Prov ider Active Team Status: Inactive Member Role Status Dates Dr. Betsy Coleman DO Primary Care Provider Active Dr. Mary Arredondo , DO Attending Provider Active Senior Officer Relationship Specialty Start Date End Date Temi Bedoya MD [address] [place], [place] [id number] PCP - General 10/19/09 11/09/20 Team Status: Active Member Role Status Dates Guerda Connelly MD Family Provider Active Dr. Franklin Brown MD Primary Care Provider Active Team Status: Inactive Member Role Status Dates Dr. Betsy Coleman DO Primary Care Provider Active Start: November 15, 2024 End: November 15, 2024 Dr. Betsy Coleman DO Referring Provider Active Start: November 15, 2024 End: November 15, 2024 Dr. Franklin Brown MD Attending Provider Active Start: November 15, 2024 End: November 15, 2024 Team Status: Inactive Member Role Status Dates Dr. Franklin Brown MD Primary Care Provider Active Start: November 15, 2024 End: November 15, 2024 Dr. Franklin Brown MD Attending Provider Active Start: November 15, 2024 End: November 15, 2024 Dr. Franklin Brown MD Referring Provider Active Start: November 15, 2024 End: November 15, 2024 Team Status: Active Member Role/Relationship Status Dates Guerda Connelly MD Family Provider Active Dr. Franklin Brown MD Primary Care Provider Active Team Status: Inactive Member Role/Relationship Status Dates Dr. Betsy Coleman DO Primary Care Provider Active Start: November 15, 2024 End: November 15, 2024 Dr. Betsy Coleman DO Referring Provider Active Start: November 15, 2024 End: November 15, 2024 Dr. Franklin Brown MD Attending Provider Active Start: November 15, 2024 End: November 15, 2024 Team Status: Inactive Member Role/Relationship Status Dates Dr. Franklin Brown MD Primary Care Provider Active Start: November 15, 2024 End: November 15, 2024 Dr. Franklin Brown MD Attending Provider Active Start: November 15, 2024 End: November 15, 2024 Dr. Franklin Brown MD Referring Provider Active Start: November 15, 2024 End: November 15, 2024 Team Status: Inactive Member Role/Relationship Status Dates Dr. Franklin Brown MD Primary Care Provider Active Start: February 14, 2025 End: February 14, 2025 Dr. Franklin Brown MD Attending Provider Active Start: February 14, 2025 End: February 14, 2025 Dr. Franklin Brown MD Referring Provider Active Start: February 14, 2025 End: February 14, 2025 Goals (unrecognized section and content) Goals may be documented in a n alternate sectionGoals may be documented in an alternate sectionGoals may be documented in an alternate sectionGoals may be documented in an alternate section FOR RECORDS PERTAINING TO PATIENTS WHO ARE OR HAVE BEEN ENROLLED IN A CHEMICAL DEPENDENCY/SUBSTANCEABUSE PROGRAM, SOME INFORMATION MAY BE OMITTED. This clinical summary was aggregated from multiple sources. Caution should be exercised in using it in the provision of clinical care. This summary normalizes information from multiple sources, and as a consequence, information in this document may materially change the coding, format and clinical context of patient data. In addition, data may be omitted in some cases. CLINICAL DECISIONS SHOULD BE BASED ON THE PRIMARY CLINICAL RECORDS. [facility] [employer] provides no warranty or guarantee of the accuracy or completeness of information in this document.
--- OUTSIDE RECORDS SUMMARY | 2025-05-01 22:42 | XMS RPT_ITS | CCD ---
Author Organization [facility] Care Team Providers Care Compressor Repairer Name Role Phone Unavailable Primary Care Provider [...] to adverse reactions 1 Other: See Comments [facility] Work Phone: (1 source) Seasonal Allergies: Uncoded; Translations: [Seasonal Allergies: Uncoded] Propensity to adverse reactions (disorder) [facility] Repository Medications Current Medications Medication Drug Class(es) [...] / neomycin 3.5 mg/ml / polymyxin b 93766 unt/ml otic suspension (1 source) Aminoglycoside Antibacterial, Polymyxin-class Antibacterial, Corticosteroid Start: 11-29-19 End: 12-06-19 neomycin-polymyxin -hydrocortisone (CORTISPORIN) 3.5-10,000-1 mg/mL-unit/mL-% otic suspension Use 3 Drops in the left ear three times daily for 7 days. 10 mL 0 11/28/2021 12/05/2021 Active Comment on above: Use 3 Drops in the l eft ear three times daily for 7 days. Trdlgyyw-Fmz-Bc-Fa (4 sources) Start: 02-05-20 take 1 tablet by mouth once Dxrzgqoh-Oef-Ux-Fa Active TABLET PO February 04, 2023 12:00am [...] Comment on above: Take 2 tablets by cox monett every 6 hours as needed for pain. aspirin 81 mg delayed release oral tablet (11 sources) Platelet Aggregation Inhibitor, Nonsteroidal Anti-inflammatory Drug Start: 12-06-2022 End: 03-20-2023 take 2 tablets by mouth once daily aspirin, enteric coated (ASPIRIN, ENTERIC COATED) 81 mg EC tablet Take 2 tablets by mouth once daily. 60 tablet 5 12/06/2022 03/20/2023 Discontinued Comment on above: Take 2 tablets by cox monett once daily. Blood Pressure Test Kit-Large (QUICK [...] every 6 hours as needed for pain. Vzijbvwr-Exu-As-Fa 1 mg tablet (4 sources) Start: 02-05-20 End: 11-16-19 take 1 tablet by mouth once Hksdcfxt-Hzt-Fo-Fa 1 mg tablet Discontinued {tbl} PO February 04, 2023 12:00am November 15, 2024 9:32am Start: 02-04-2023 End: 11-15-2024 take 1 tablet by mouth once Cjujuhby-Tsq-Qg-F a 1 mg tablet Discontinued {tbl} PO [...] aftercare (13 sources) Drug indicated; Translations: [Other rodent exterminator (current) drug therapy] Onset: 7 Resolved: 3 [...] Test Name Value Interpretation Reference Range Facility [facility] US BREAST LTD LTon 03-18 [facility] US BREAST LTD LT * * *Final Report* * * DATE OF EXAM: Mar 18 2025 8:47AM WRU 0593 - [facility] US BREAST LTD LT / PROCEDURE REASON: Solitary cyst of left breast * * * * Physician Interpretation * * * * [place] [address] #[id number] - [facility] US BREAST LTD LT HISTORY: [...] Patricia Conteh M.D. Electronically signed on: 03/18/2025 Class 1 Owner Operator: INDIO Transcribe Date/Time: Mar 18 2025 8:36A Dictated by : PATRICIA CONTEH MD This examination was interpreted and the report reviewed and electronically signed by: PATRICIA CONTEH MD on Mar 18 2025 9:03AM EST [id number] Normal [facility] US Breast - left limitedon 0 03-18-2025 IMPRESSION: The 0.5 cm stable oval complicated cyst in the left breast at 10 o'clock is probably benign. Follow-up with diagnostic ultrasound is recommended in 6 months. BI-RADS Category 3: Probably Benign Interpreting Radiologist: Patricia Conteh M.D. Electronically signed on: 03/18/2025 Class 1 Owner Operator: INDIO Transcribe Date/Time: Mar 18 2025 8:36A Dictated by : PATRICIA CONTEH MD This examination was interpreted and the report reviewed and electronically signed by: PATRICIA CONTEH MD on Mar 18 2025 9:03AM [facility] DIVISION OF RADIOLOGY * * *Final Report* * * DATE OF EXAM: Mar 18 2025 8:47AM [employer] 0593 Timeet LT / PROCEDURE REASON: Solitary cyst of left breast * * * * Physician Interpretation * * * * [place] [address] #[id number] Timeet LT HISTORY: 24 year-old patient presents for [...] is not present. DIVISION OF RADIOLOGY Provider, [facility] - 03/18/2025 * * *Final Report* * * DATE OF EXAM: Mar 18 2025 8:47AM [employer] 0593 [employer] BREAST [employer] LT / PROCEDURE REASON: Solitary cyst of left breast * * * * Physician Interpretation * * * * [address] [address] [place] [address] #[id number] [employer] BREAST LTD LT HISTORY: 24 year-old patient [...] Patricia Conteh M.D. Electronically signed on: 03/18/2025 Class 1 Owner Operator: INDIO Transcrigeorges Date/Time: Mar 18 2025 8:36A Dictated by : PATRICIA CONTEH MD This examination was interpreted and the report reviewed and electronically signed by: PATRICIA CONTEH MD on Mar 18 2025 9:03AM EST [facility] Radiology Study observation (narrative) [facility] US Breast - left limitedOrde red By: Sandra Provider on 03-18-2025 [facility] Internal Medicine Office Vis iton 02-14-2025 Internal Medicine Office Visit [facility] [address] [place] [address] [place] [address] OFFICE VISIT Date of Service: 02/14/25 MR#: [id number] Acct: [id number] Name: NESTOR LOPEZ Rep #: [id number] : 2000 Provider: Dr. Franklin adames MD Age/Sex: 24/F Location: [facility] Status: Signed Intake Vital Signs 11/15/24 09:38 [...] M FU Chief Complaint: fu chronic conditions Machine Fur Cleaner Required: No Accompanied by: Self Is patient in pain?: No Allergies Seasonal Allergies: Uncoded Allergy (Unknown, Verified 02/14/25 10:19) NEEDS FOLLOW-UP Medications ???Medication ???Instructions ???Recorded ???Confirmed ???Type escitalopram oxalate 20 mg tablet 20 mg PO QDAY #90 tabs 12/23/24 0 02/14/25 Rx (Lexapro) buspirone 10 mg tablet 10 mg PO BID #180 tabs 02/14/25 Rx Nurse's Note: follow up [facility] Medical History (Updated 02/14/25 @ 12:34 by [...] Cardio Rat (more content not included)... [facility] (OBGYWM ) JOHNNESTOR ([id number]) 2 F Date Time Provider Department 11/26/24 3:30 PM SANDRA VIZCAINO OBGYWMatty During your visit today, we recorded the following information about you: Blood pressure Weight 120/70 70.3 kg Sandra Vizcaino MD 11/26/2024 4:04 PM Signed Roofer Assistant offered: Patient declines. Subjective The patient is [...] pills. - Previously prescribed spironolactone by a radiology special procedure tech for cystic acne but did not start [...] history and its implications. Attestation Recording using [employer] software for draft documentation of the visit was discussed with the patient/authorized electroplating sales representative; all questions welcomed and ans (more content not included)... Normal [facility] CNPNon 11-26-2024 CNPN Telephone (OBGYWM) NESTOR LOPEZ ([id number]) 2 F Date Time Provider Department 11/26/24 [...] Status:Closed by SABRINA AYALA on 11/26/24 Normal [facility] Absolute lymphocyte countOrd ered By: Franklin Brown on 11-15-2024 Lymphocytes Auto (Unsp spec) [#/Vol] 2.24 10*3/uL 0.83-4.51 [facility] Absolute neutrophil countOrd ered By: Franklin Brown on 11-15-2024 Neutrophils (Bld) [#/Vol] 3.8 10*3/uL 2.0-7.7 [facility] Anion gap in Serum or Plasma Ordered By: Carltongeorges Kevin on 11-15-2024 Anion gap [Moles/Vol] 11 mmol/L 5- [facility] Automated lymphocyte count a s percentage of total leukocytesOrdered By: Ernestoryanamygeorges Reesemarlene on 11-15-2024 Lymphocytes/100 WBC Auto (Unsp spec) 33.4 % - [facility] BUN/creatinine ratioOrdered By: ryanyonkersgeorges Kevin on 11-15-2024 Urea nitrogen/Creatinine [Mass ratio] 12.4 mg/mg 10- [facility] Basophil percentageOrdered B y: Carltongeorges Kevin on 11-15-2024 Basophils/100 WBC (Bld) 0.9 % 0-1 [facility] Bilirubin, totalOrdered By: Ernestoryanamygeorges Kevin on 11-15-2024 Bilirubin [Mass/Vol] 0.77 mg/dL 0.00-1.30 [facility] CBC W/Diff, Automatedon 11-05 Absolute Lymph 2.24 X10 3/uL Normal 0.83-4.51 [facility] Comment on above: Performed By: #### L 506.0400, L506.1001, L503.0106, L500.4050, L501.9520, L100.0100 #### [facility] [address] [place], [address] Absolute Neut 3.8 X10 3/uL Normal 2.0-7.7 [facility] Comment on above: Performed By: #### L 506.0400, L506.1001, L503.0106, L500.4050, L501.9520, L100.0100 #### [facility] [address] [place], [address] Basophils/100 WBC (Bld) 0.9 % Normal 0-1 [facility] Comment on above: Performed By: #### L 506.0400, L506.1001, L503.0106, L500.4050, L501.9520, L100.0100 #### [facility] [address] [place], [address] Eosinophils/100 WBC (Bld) 0.7 % Normal 0-5 [facility] Comment on above: Performed By: #### L 506.0400, L506.1001, L503.0106, L500.4050, L501.9520, L100.0100 #### [facility] [address] [place], [address] Erythrocyte distribution width (RBC) [Ratio] 12.5 % Normal 11.6-14.6 [facility] Comment on above: Performed By: #### L 506.0400, L506.1001, L503.0106, L500.4050, L501.9520, L100.0100 #### [facility] [address] [place], [address] Hematocrit (Bld) [Volume fraction] 42.8 % Normal 37-47 [facility] Comment on above: Performed By: #### L 506.0400, L506.1001, L503.0106, L500.4050, L501.9520, L100.0100 #### [facility] [address] [place], [address] Hemoglobin (Bld) [Mass/Vol] 13.7 g/dL Normal 12.0-15.0 [facility] Comment on above: Performed By: #### L 506.0400, L506.1001, L503.0106, L500.4050, L501.9520, L100.0100 #### [facility] [address] [place], [address] IG% 0.300 Normal 0.0-0.9 [facility] Comment on above: Result Comment: IG% - Immature Granulocytes (promyelocytes, myelocytes and metamyelocytes) > 1% indicates that a LEFT SHIFT is Present. Performed By: #### L 506.0400, L506.1001, L503.0106, L500.4050, L501.9520, L100.0100 #### [facility] [address] [place], [address] Lymphocytes/100 WBC (Bld) 33.4 % Normal 19-41 [facility] Comment on above: Performed By: #### L 506.0400, L506.1001, L503.0106, L500.4050, L501.9520, L100.0100 #### [facility] [address] [place], [address] MCH (RBC) [Entitic mass] 26.7 pg Low 27.0-32.0 [facility] Comment on above: Performed By: #### L 506.0400, L506.1001, L503.0106, L500.4050, L501.9520, L100.0100 #### [facility] [address] [place], [address] MCHC (RBC) [Mass/Vol] 32.0 g/dL Normal 32-36 [facility] Comment on above: Performed By: #### L 506.0400, L506.1001, L503.0106, L500.4050, L501.9520, L100.0100 #### [facility] [address] [place], [address] MCV (RBC) [Entitic vol] 83.3 fL Normal 81-99 [facility] Comment on above: Performed By: #### L 506.0400, L506.1001, L503.0106, L500.4050, L501.9520, L100.0100 #### [facility] [address] [place], [address] Monocytes/100 WBC (Bld) 8.4 % Normal 0-10 [facility] Comment on above: Performed By: #### L 506.0400, L506.1001, L503.0106, L500.4050, L501.9520, L100.0100 #### [facility] [address] [place], [address] Neutrophils/100 WBC (Bld) 56.3 % Normal 47-70 [facility] Comment on above: Performed By: #### L 506.0400, L506.1001, L503.0106, L500.4050, L501.9520, L100.0100 #### [facility] [address] [place], [address] Nucleated RBC (Bld) [#/Vol] 0 10*3/uL Normal 0-5 [facility] Comment on above: Performed By: #### L 506.0400, L506.1001, L503.0106, L500.4050, L501.9520, L100.0100 #### [facility] [address] [place], [address] Platelet mean volume (Bld) [Entitic vol] 10.7 fL Normal 6.2-12.0 [facility] Comment on above: Performed By: #### L 506.0400, L506.1001, L503.0106, L500.4050, L501.9520, L100.0100 #### [facility] [address] [place], [address] Platelets (Bld) [#/Vol] 263 10*3/uL Normal 150-450 [facility] Comment on above: Performed By: #### L 506.0400, L506.1001, L503.0106, L500.4050, L501.9520, L100.0100 #### [facility] [address] [place], [address] RBC (Bld) [#/Vol] 5.14 10*6/uL Normal 4.2-5.4 [facility] Comment on above: Performed By: #### L 506.0400, L506.1001, L503.0106, L500.4050, L501.9520, L100.0100 #### [facility] [address] [place], [address] RDW SD 37.6 fl Normal 35.1-43.9 [facility] Comment on above: Performed By: #### L 506.0400, L506.1001, L503.0106, L500.4050, L501.9520, L100.0100 #### [facility] [address] [place], [address] WBC (Bld) [#/Vol] 6.7 10*3/uL Normal 4.4-11.0 [facility] Comment on above: Performed By: #### L 506.0400, L506.1001, L503.0106, L500.4050, L501.9520, L100.0100 #### [facility] [address] [place], [address] Carbon dioxide, total [Moles /volume] in Central venous bloodOrdered By: Franklin Brown on 11-15-2024 CO2 [Moles/Vol] 25.5 mmol/L 21.0-32.0 [facility] Chloride assayOrdered By: Ernesto Brown on 11-15-2024 Chloride [Moles/Vol] 103 mmol/L 98-108 [facility] Comprehensive Metabolic Prof ilon 11-15-2024 Albumin [Mass/Vol] 4.6 g/dL Normal 3.5-5.0 [facility] Comment on above: Performed By: #### L 506.0400, L506.1001, L503.0106, L500.4050, L501.9520, L100.0100 #### [facility] [address] [place], [address] Albumin/Globulin [Mass ratio] 1.8 {ratio} Normal 0.9-2.4 [facility] Comment on above: Performed By: #### L 506.0400, L506.1001, L503.0106, L500.4050, L501.9520, L100.0100 #### [facility] [address] [place], [address] ALK PHOS 38 U/L Normal 35-104 [facility] Comment on above: Performed By: #### L 506.0400, L506.1001, L503.0106, L500.4050, L501.9520, L100.0100 #### [facility] [address] [place], [address] ALT [Catalytic activity/Vol] 11 U/L Normal <=34 [facility] Comment on above: Performed By: #### L 506.0400, L506.1001, L503.0106, L500.4050, L501.9520, L100.0100 #### [facility] [address] [place], [address] AST [Catalytic activity/Vol] 18 U/L Normal <=31 [facility] Comment on above: Performed By: #### L 506.0400, L506.1001, L503.0106, L500.4050, L501.9520, L100.0100 #### [facility] [address] [place], [address] Bilirubin [Mass/Vol] 0.77 mg/dL Normal 0.00-1.30 [facility] Comment on above: Performed By: #### L 506.0400, L506.1001, L503.0106, L500.4050, L501.9520, L100.0100 #### [facility] [address] [place], [address] BUN/CRE 12.4 RATIO Normal 10-20 [facility] Comment on above: Performed By: #### L 506.0400, L506.1001, L503.0106, L500.4050, L501.9520, L100.0100 #### [facility] [address] [place], [address] Calcium [Mass/Vol] 9.4 mg/dL Normal 7.6-11.0 [facility] Comment on above: Performed By: #### L 506.0400, L506.1001, L503.0106, L500.4050, L501.9520, L100.0100 #### [facility] [address] [place], [address] Chloride [Moles/Vol] 103 mmol/L Normal 98-108 [facility] Comment on above: Performed By: #### L 506.0400, L506.1001, L503.0106, L500.4050, L501.9520, L100.0100 #### [facility] [address] [place], [address] CO2 [Moles/Vol] 25.5 mmol/L Normal 21.0-32.0 [facility] Comment on above: Performed By: #### L 506.0400, L506.1001, L503.0106, L500.4050, L501.9520, L100.0100 #### [facility] [address] [place], [address] Creatinine [Mass/Vol] 0.74 mg/dL Normal 0.70-1.20 [facility] Comment on above: Performed By: #### L 506.0400, L506.1001, L503.0106, L500.4050, L501.9520, L100.0100 #### [facility] [address] [place], [address] GAP 11 Normal 5-15 [facility] Comment on above: Performed By: #### L 506.0400, L506.1001, L503.0106, L500.4050, L501.9520, L100.0100 #### [facility] [address] [place], [address] GFR/1.73 sq M.predicted among non-blacks MDRD (S/P/Bld) [Vol rate/Area] 116 mL/min/{1.73_m2} Normal >60 [facility] Comment on above: Result Comment: mL/m in/1.73m2 CKD-EPI Creatinine Equation (2020) Performed By: #### L 506.0400, L506.1001, L503.0106, L500.4050, L501.9520, L100.0100 #### [facility] [address] [place], [address] Globulin (S) [Mass/Vol] 2.6 g/dL Normal 2.2-4.2 [facility] Comment on above: Performed By: #### L 506.0400, L506.1001, L503.0106, L500.4050, L501.9520, L100.0100 #### [facility] [address] [place], [address] Glucose [Mass/Vol] 82 mg/dL Normal 70-99 [facility] Comment on above: Performed By: #### L 506.0400, L506.1001, L503.0106, L500.4050, L501.9520, L100.0100 #### [facility] [address] [place], [address] Potassium [Moles/Vol] 4.0 mmol/L Normal 3.3-5.1 [facility] Comment on above: Performed By: #### L 506.0400, L506.1001, L503.0106, L500.4050, L501.9520, L100.0100 #### [facility] [address] [place], [address] Sodium [Moles/Vol] 140 mmol/L Normal 133-145 [facility] Comment on above: Performed By: #### L 506.0400, L506.1001, L503.0106, L500.4050, L501.9520, L100.0100 #### [facility] [address] [place], [address] T PROT 7.2 g/dL Normal 5.9-8.4 [facility] Comment on above: Performed By: #### L 506.0400, L506.1001, L503.0106, L500.4050, L501.9520, L100.0100 #### [facility] [address] [place], [address] Urea nitrogen [Mass/Vol] 9 mg/dL Normal 4-19 [facility] Comment on above: Performed By: #### L 506.0400, L506.1001, L503.0106, L500.4050, L501.9520, L100.0100 #### [facility] [address] [place], [address] Eosinophil percentageOrdered By: Ernestoewongbe Shadiae on 11-15-2024 Eosinophils/100 WBC (Bld) 0.7 % 0-5 [facility] Erythrocyte distribution wid th (RBC) [Ratio]Ordered By: Efewongbe Oleghe on 11-15-2024 Erythrocyte distribution width (RBC) [Entitic vol] 37.6 fL 35.1-43.9 [facility] Erythrocyte distribution wid th ratioOrdered By: Efewongbe Oleghe on 11-15-2024 Erythrocyte distribution width (RBC) [Ratio] 12.5 % 11.6-14.6 [facility] Erythrocyte distribution wid th standard deviationOrdered By: Efewongbe Oleghe on 11-15-2024 Erythrocyte distribution width (RBC) [Ratio] 37.6 fl 35.1-43.9 [facility] GFR/1.73 sq M.predicted ismael g non-blacks MDRD (S/P/Bld) [Vol rate/Area]Ordered By: Franklin Brown on 11-15-2024 Estimated GFR (MDRD) Non-Af Amer 116 >60 [facility] Comment on above: mL/min/1.73m2 CKD-EP I Creatinine Equation (2020) Glomerular filtration rate ( GFR) estimation/1.73 sq m using serum, plasma, or whole bOrdered By: Franklin Brown on 11-15-2024 GFR/1.73 sq M.predicted among non-blacks MDRD (S/P/Bld) [Vol rate/Area] 116 mL/min/{1.73_m2} >60 [facility] Comment on above: mL/min/1.73m2 CKD-EP I Creatinine Equation (2020) Hematocrit Auto (Bld) [Volum e fraction]Ordered By: Franklin Brown on 11-15-2024 Hematocrit (Bld) [Volume fraction] 42.8 % 37-47 [facility] Hemoglobin measurementOrdere d By: Franklin Brown on 11-15-2024 Hemoglobin (Bld) [Mass/Vol] 13.7 g/dL 12.0-15.0 [facility] Immature granulocytes/100 WB C Auto (Bld)Ordered By: Franklin Brown on 11-15-2024 Immature granulocytes/100 WBC (Bld) 0.300 % 0.0-0.9 [facility] Comment on above: IG% - Immature Granu locytes (promyelocytes, myelocytes and metamyelocytes) > 1% indicates that a LEFT SHIFT is Present. Internal Medicine Office Vis soo 11-15-2024 Internal Medicine Office Visit [facility] [address] [place], [place] [address] OFFICE VISIT Date of Service: 11/15/24 MR#: [id number] Acct: [id number] Name: NESTOR LOPEZ Rep #: [id number] : 2000 Provider: Dr. 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 Franklin Brown MD) Encounter to establish care Generalized anxiety disorder Breast lump Pneumonia Migraine Allergies section wound complication Lab test negative for COVID-19 virus URI (upper respiratory infection) Pilonidal cyst with abscess Family History (Updated 11/15/24 @ 09:35 by Guerda Wilks) Other Arthritis Diabetes Seizures Social History Smoking Status: Never smoker Questionnaire MARTINA-7 [facility] MARTINA-7 Feeling nervous, anxious, or on edge: [...] and colleagues, with an educational mirela from [employer] [facility] HPI Chief Complaint: establishing Details: NESTOR LOPEZ, [...] increased hun (more content not included)... Normal [facility] Laboratory - Chemistry and C hemistry - challengeOrdered By: Franklin Brown on 11-15-2024 AST [Catalytic activity/Vol] 18 U/L <32 [facility] Lymphocytes Auto (Unsp spec) [#/Vol]Ordered By: Franklin Brown on 11-15-2024 Lymphocytes (Bld) [#/Vol] 2.24 10*3/uL 0.83-4.51 [facility] Lymphocytes/100 WBC Auto (Un sp spec)Ordered By: Franklin Brown on 11-15-2024 Lymphocytes/100 WBC (Bld) 33.4 % 19-41 [facility] MCV (mean corpuscular volume ) determinationOrdered By: Franklin Brown on 11-15-2024 MCV (RBC) [Entitic vol] 83.3 fL 81-99 [facility] Mean corpuscular hemoglobin (MCH) determinationOrdered By: Franklin Brown on 11-15-2024 MCH (RBC) [Entitic mass] 26.7 pg Low 27.0-32.0 [facility] Mean corpuscular hemoglobin concentration (MCHC) determinationOrdered By: Franklin Brown on 11-15-2024 MCHC (RBC) [Mass/Vol] 32.0 g/dL 32-36 [facility] Mean platelet volume determi nationOrdered By: Franklin Brown on 11-15-2024 Platelet mean volume (Bld) [Entitic vol] 10.7 fL 6.2-12.0 [facility] Monocyte percentageOrdered B y: Franklin Brown on 11-15-2024 Monocytes/100 WBC (Bld) 8.4 % 0-10 [facility] Neutrophil percentageOrdered By: Franklin Brown on 11-15-2024 Neutrophils/100 WBC (Bld) 56.3 % 47-70 [facility] Nucleated red blood cell per centageOrdered By: Franklin Brown on 11-15-2024 Nucleated RBC/100 WBC (Bld) [Ratio] 0 % 0-5 [facility] Platelet countOrdered By: Ernesto Brown on 11-15-2024 Platelets (Bld) [#/Vol] 263 10*3/uL 150-450 [facility] Potassium (Unsp spec) [Mass/ Vol]Ordered By: Franklin Brown on 11-15-2024 Potassium [Moles/Vol] 4.0 mmol/L 3.3-5.1 [facility] Potassium measurement (mass/ volume)Ordered By: Franklin Brown on 11-15-2024 Potassium (Unsp spec) [Mass/Vol] 4.0 mmol/L 3.3-5.1 [facility] RBC Auto (Bld) [#/Vol]Ordere d By: Franklin Brown on 11-15-2024 RBC (Bld) [#/Vol] 5.14 10*6/uL 4.2-5.4 [facility] Serum creatinine measurement (mass/volume)Ordered By: Franklin Brown on 11-15-2024 Creatinine [Mass/Vol] 0.74 mg/dL 0.70-1.20 [facility] Serum globulin measurementOr dered By: Franklin Brown on 11-15-2024 Globulin (S) [Mass/Vol] 2.6 g/dL 2.2-4.2 [facility] Serum glucose measurement (m ass/volume)Ordered By: Franklin Brown on 11-15-2024 Glucose [Mass/Vol] 82 mg/dL 70-99 [facility] Serum or plasma alanine cazares otransferase (ALT) measurementOrdered By: Franklin Brown on 11-15-2024 ALT [Catalytic activity/Vol] 11 U/L <35 [facility] Serum or plasma albumin emilie urement (mass/volume)Ordered By: Franklin Brown on 11-15-2024 Albumin [Mass/Vol] 4.6 g/dL 3.5-5.0 [facility] Serum or plasma albumin/glob ulin mass ratioOrdered By: Franklin Brown on 11-15-2024 Albumin/Globulin [Mass ratio] 1.8 {ratio} 0.9-2.4 [facility] Serum or plasma alkaline javier sphatase measurementOrdered By: Franklin Reesemaximoivana on 11-15-2024 ALP [Catalytic activity/Vol] 38 U/L 35-104 [facility] Serum or plasma calcium emilie urement (mass/volume)Ordered By: Franklin Reesemaximoivana on 11-15-2024 Calcium [Mass/Vol] 9.4 mg/dL 7.6-11.0 [facility] Serum or plasma urea nitroge n measurement (mass/volume)Ordered By: Franklin Brown on 11-15-2024 Urea nitrogen [Mass/Vol] 9 mg/dL 4-19 [facility] Sodium levelOrdered By: Akash bolanosaicha Kevin on 11-15-2024 Sodium [Moles/Vol] 140 mmol/L 133-145 [facility] T4 Free Directon 11-15-2024 T4 FREE DIRECT 1.20 ng/dL Normal 0.76-1.46 [facility] Comment on above: Performed By: #### L 506.0400, L506.1001, L503.0106, L500.4050, L501.9520, L100.0100 #### [facility] [address] [place], [address] T4 freeOrdered By: Franklin Brown on 11-15-2024 Free T4 [Mass/Vol] 1.20 ng/dL 0.76-1.46 [facility] TSH DL <= 0.005 mIU/L QnOrde red By: Franklin rBown on 11-15-2024 Thyroid Stimulating Hormone (TSH) 2.980 uIU/mL 0.300-4.200 [facility] TSH Qn 2.980 uIU/mL 0.300-4.200 [facility] Thyroid Stim Hormone (TSH)on 11-15-2024 TSH 2.980 uIU/mL Normal 0.300-4.200 [facility] Comment on above: Performed By: #### L 506.0400, L506.1001, L503.0106, L500.4050, L501.9520, L100.0100 #### [facility] [address] [place], [address] Total proteinOrdered By: Willie Brown on 11-15-2024 Protein [Mass/Vol] 7.2 g/dL 5.9-8.4 [facility] Vitamin B12on 11-15-2024 Cobalamin (Vitamin B12) [Mass/Vol] 471 pg/mL Normal 180-914 [facility] Comment on above: Performed By: #### L 506.0400, L506.1001, L503.0106, L500.4050, L501.9520, L100.0100 #### [facility] [address] [place], [address] Vitamin B12 ser/plasOrdered By: Franklin Brown on 11-15-2024 Cobalamin (Vitamin B12) [Mass/Vol] 471 pg/mL 180-914 [facility] Vitamin D, 25-hydroxyOrdered By: Franklin Brown on 11-15-2024 Vitamin D 25-Hydroxy 25.0 ng/mL Low 30-100 [facility] Comment on above: Vitamin D StatusDefi ciency: <20 ng/mL (50nmol/L)Insufficiency: 20-30 ng/mL (50-75 nmol/L)Sufficiency: 30-100 ng/mL (75-250 nmol/L)Toxicity: >100 ng/mL (>250 nmol/L) Vitamin D,25 Hydroxyon 11-15 Vitamin D 25-OH 25.0 ng/mL Low 30-100 [facility] Comment on above: Result Comment: Susan min D Status Deficiency: <20 ng/mL (50nmol/L) Insufficiency: 20-30 ng/mL (50-75 nmol/L) Sufficiency: 30-100 ng/mL (75-250 nmol/L) Toxicity: >100 ng/mL (>250 nmol/L) Performed By: #### L 506.0400, L506.1001, L503.0106, L500.4050, L501.9520, L100.0100 #### [facility] [place], [address] White blood cell (WBC) count Ordered By: Franklin Brown on 11-15-2024 WBC (Bld) [#/Vol] 6.7 10*3/uL 4.4-11.0 [facility] CNPNon 10-04-2024 CNPN Telephone (OBGYWM) NESTOR LOPEZ ([id number]) 2 F Date Time Provider Department 10/04/24 [...] Fully Assessed Reason for Visit: Patient Question [9737] Prescriptions as of 10/04/2024 - escitalopram oxalate [...] Encounter Status:Closed by CAROLYNERACHEL on 10/04/24 Normal [facility] US BREAST LTD LTon 09-18 [facility] US BREAST LTD LT * * *Final Report* * * DATE OF EXAM: Sep 18 2024 2:45PM WRU 0593 - [facility] US BREAST LTD LT / PROCEDURE REASON: Mass of upper inner quadrant of left breast * * * * Physician Interpretation * * * * [place] [address] #[id number] - [facility] US BREAST LTD LT HISTORY: [...] Patricia Conteh M.D. Electronically signed on: 09/18/2024 Class 1 Owner Operator: INDIO Transcribe Date/Time: Sep 18 2024 2:35P Dictated by : PATRICIA CONTEH MD This examination was interpreted and the report reviewed and electronically signed by: PATRICIA CONTEH MD on Sep 18 2024 2:48PM EST [id number] N Normal [facility] US Breast - left limitedon 0 09-18-2024 IMPRESSION: The 0.5 cm oval complicated cyst in the left breast is probably benign. A follow-up in 6 months is recommended. BI-RADS Category 3: Probably Benign Interpreting Radiologist: Patricia Conteh M.D. Electronically signed on: 09/18/2024 Class 1 Owner Operator: INDIO Annrigeorges Date/Time: Sep 18 2024 2:35P Dictated by : PATRICIA CONTEH MD This examination was interpreted and the report reviewed and electronically signed by: PATRICIA CONTEH MD on Sep 18 2024 2:48PM [facility] DIVISION OF RADIOLOGY * * *Final Report* * * DATE OF EXAM: Sep 18 2024 2:45PM [facility] 0593 Timeet LT / PROCEDURE REASON: Mass of upper inner quadrant of left breast * * * * Physician Interpretation * * * * [place] [address] #[id number] [facility] LT HISTORY: 24 year-old patient seen for [...] is not present. DIVISION OF RADIOLOGY Provider, [facility] - 09/18/2024 * * *Final Report* * * DATE OF EXAM: Sep 18 2024 2:45PM [employer] 0593 Timeet LT / PROCEDURE REASON: Mass of upper inner quadrant of left breast * * * * Physician Interpretation * * * * [address] [address] #[id number] [facility]et LT HISTORY: 24 year-old patient seen for [...] Patricia Conteh M.D. Electronically signed on: 09/18/2024 Class 1 Owner Operator: INDIO Transcribe Date/Time: Sep 18 2024 2:35P Dictated by : PATRICIA CONTEH MD This examination was interpreted and the report reviewed and electronically signed by: PATRICIA CONTEH MD on Sep 18 2024 2:48PM EST [facility] Radiology Study observation (narrative) [facility] US Breast - left limitedOrde red By: Ccf Provider on 09-18-2024 [facility] CNOVon 08-27-2024 CNOV Office Visit (OBGYWM ) NESTOR LOPEZ ([id number]) 2 F Date Time Provider Department 08/27/24 10:20 AM SANDRA VIZCAINO OBGYWM During your visit today, we recorded the following information about you: Blood pressure Weight Height Last Period 110/64 71.2 kg 1.676 m 08/17/24 Sandra Vizcaino MD 08/27/2024 10:54 AM Addendum Roofer Assistant offered: Patient declines. Nestor is a 24 [...] L1 SAB0 IAB0 Ectopic0 Multiple0 Live Births1 Rn Pediatric History LMP: 08/17/2024 (Exact Date), Unknown Age at Menarche: Age at First : Age at Menopause: Rn Pediatric History Comments: Sexual Activity: Yes; Male Contraception: [...] discussed with the Patient or Patient's Authorized Spinner Operator. As applicable, any other physician, advance practice provider, medical student, or other health professional student that will be observing or involved in the sensitive examination for educational or training purposes was discussed with the Patient or Authorized Spinner Operator. The Patient or Authorized Spinner Operator has agreed to proceed with the sensitive [...] external genitalia normal, normal Bartholin's glands, urethra, [place]'s glands, no vulvar lesions, no cervical lesions, [...] See Com (more content not included)... Normal [facility] CBC W Auto Differential pane l (Bld)on 02-14-2023 Anisocytosis Ql (Bld) Present [facility] Basophils (Bld) [#/Vol] 0.00 10*3/uL <0.11 k/uL [facility] Basophils/100 WBC (Bld) 0.0 % C [facility] Differential cell count method Nom (Bld) Manual [facility] Eosinophils (Bld) [#/Vol] 0.12 10*3/uL <0.46 k/uL [facility] Eosinophils/100 WBC (Bld) 0.9 % [facility] Erythrocyte distribution width (RBC) [Ratio] 16.8 % High 11.5 - 15.0 % [facility] Hematocrit (Bld) [Volume fraction] 31.8 % Low 36.0 - 46.0 % [facility] Hemoglobin (Bld) [Mass/Vol] 10.3 g/dL Low 11.5 - 15.5 g/dL [facility] Lymphocytes (Bld) [#/Vol] 2.62 10*3/uL 1.00 - 4.00 k/uL [facility] Lymphocytes/100 WBC (Bld) 19.3 % [facility] MCH (RBC) [Entitic mass] 28.0 pg 26. 0 - 34.0 pg [facility] MCHC (RBC) [Mass/Vol] 32.4 g/dL 30.5 - 36.0 g/dL [facility] MCV (RBC) [Entitic vol] 86.4 fL 80.0 - 100.0 fL [facility] Monocytes (Bld) [#/Vol] 0.50 10*3/uL <0.87 k/uL [facility] Monocytes/100 WBC (Bld) 3.7 % C [facility] Myelo % 1.8 % [facility] Neutrophils (Bld) [#/Vol] 10.07 10*3/uL High 1.45 - 7.50 k/uL [facility] Neutrophils/100 WBC (Bld) 74.3 % [facility] Nucleated RBC (Bld) [#/Vol] 0.12 10*3/uL High <0.01 k/uL [facility] Nucleated RBC/100 WBC (Bld) [Ratio] 0.9 /100 WBC [facility] Ovalocytes LM Ql (Bld) Few Cl [facility] Platelet mean volume (Bld) [Entitic vol] 9.7 fL 9.0 - 12.7 fL [facility] Platelets (Bld) [#/Vol] 421 10*3/uL High 150 - 400 k/uL [facility] Platelets Estimate (Bld) [#/Vol] Increased [facility] Polychromasia LM Ql (Bld) Slight [facility] RBC (Bld) [#/Vol] 3.68 10*6/uL Low 3.90 - 5.2 0 m/uL [facility] RBC Fragments Few Abnormal None Seen [facility] Red Cell Morph Reviewed: see result s of individual morphologies [facility] WBC (Bld) [#/Vol] 13.55 10*3/uL High 3.70 - 11 .00 k/uL [facility] WBC Left Shift Ql (Bld) Present C [facility] Comprehensive metabolic 2000 panelon 02-13-2023 Albumin [Mass/Vol] 4.3 g/dL 3.9 - 4.9 g/dL [facility] ALP [Catalytic activity/Vol] 99 U/L 34 - 123 U/L [facility] ALT [Catalytic activity/Vol] 55 U/L High 7 - 38 U/L [facility] Anion gap [Moles/Vol] 14 mmol/L 9 - 18 mmol/L [facility] AST [Catalytic activity/Vol] 18 U/L 13 - 35 U/L [facility] Bilirubin [Mass/Vol] 0.5 mg/dL 0.2 - 1 .3 mg/dL [facility] Calcium [Mass/Vol] 9.9 mg/dL 8.5 - 10. 2 mg/dL [facility] Chloride [Moles/Vol] 102 mmol/L 97 - 10 5 mmol/L [facility] CO2 [Moles/Vol] 23 mmol/L 22 - 30 mmol/L [facility] Creatinine [Mass/Vol] 0.62 mg/dL 0.58 - 0.96 mg/dL [facility] Estimated Glomerular Filtration Rate 130 mL/min/1.73m >=60 mL/min/1.73m [facility] Glucose [Mass/Vol] 86 mg/dL 74 - 99 mg/dL [facility] Potassium [Moles/Vol] 4.1 mmol/L 3.7 - 5.1 mmol/L [facility] Protein [Mass/Vol] 7.3 g/dL 6.3 - 8.0 g/dL [facility] Sodium [Moles/Vol] 139 mmol/L 136 - 144 mmol/L [facility] Urea nitrogen [Mass/Vol] 13 mg/dL 7 - 21 mg/d L [facility] CBC panel Auto (Bld)on 02-10 Erythrocyte distribution width (RBC) [Ratio] 15.6 % High 11.5-15.0 [facility] Comment on above: Order Comment: Speci men Type: BLOOD SPECIMEN Ordering Facility: [facility] Address: [address] [place] [address] Performed By: #### 5 8410-2 #### [facility] CLIA [id number] [address] Hematocrit (Bld) [Volume fraction] 23.0 % Low 36.0-46.0 [facility] Comment on above: Order Comment: Speci men Type: BLOOD SPECIMEN Ordering Facility: [facility] Address: [address] [place] [address] Performed By: #### 5 8410-2 #### [facility] CLIA [id number] [address] [facility] Hemoglobin (Bld) [Mass/Vol] 7.4 g/dL Low 11.5-15.5 [facility] Comment on above: Order Comment: Speci men Type: BLOOD SPECIMEN Ordering Facility: [facility] Address: [address] [place] [address] Performed By: #### 5 8410-2 #### [facility] CLIA [id number] [address] [place] [facility] MCH (RBC) [Entitic mass] 27.3 pg Normal 26.0-34.0 [facility] Comment on above: Order Comment: Speci men Type: BLOOD SPECIMEN Ordering Facility: [facility] Address: [address] [place] [address] Performed By: #### 5 8410-2 #### [facility] CLIA [id number] [address] MCHC (RBC) [Mass/Vol] 32.2 g/dL Normal 30.5-36.0 [facility] Comment on above: Order Comment: Speci men Type: BLOOD SPECIMEN Ordering Facility: [facility] Address: [address] [address] Performed By: #### 5 8410-2 #### [facility] CLIA [id number] [address] MCV (RBC) [Entitic vol] 84.9 fL Normal 80.0-100.0 [facility] Comment on above: Order Comment: Speci men Type: BLOOD SPECIMEN Ordering Facility: [facility] Address: [address] [address] Performed By: #### 5 8410-2 #### [facility] CLIA [id number] [address] [place] Nucleated RBC (Bld) [#/Vol] 0.06 10*3/uL High <0.01 [facility] Comment on above: Order Comment: Speci men Type: BLOOD SPECIMEN Ordering Facility: [facility] Address: [address] [address] Performed By: #### 5 8410-2 #### [facility] CLIA [id number] [address] [place] Platelet mean volume (Bld) [Entitic vol] 10.6 fL Normal 9.0-12.7 [facility] Comment on above: Order Comment: Speci men Type: BLOOD SPECIMEN Ordering Facility: [facility] Address: [address] [address] Performed By: #### 5 8410-2 #### [facility] CLIA [id number] [address] [place] Platelets (Bld) [#/Vol] 137 10*3/uL Low 150-400 [facility] Comment on above: Order Comment: Speci men Type: BLOOD SPECIMEN Ordering Facility: [facility] Address: [address] [address] Performed By: #### 5 8410-2 #### [facility] CLIA [id number] [address] [facility] RBC (Bld) [#/Vol] 2.71 10*6/uL Low 3.90-5.20 [facility] Comment on above: Order Comment: Flor martell Type: BLOOD SPECIMEN Ordering Facility: [facility] Address: [address] [place] [address] Performed By: #### 5 8410-2 #### [facility] CLIA [id number] [address] WBC (Bld) [#/Vol] 14.25 10*3/uL High 3.70-11.00 [facility] Comment on above: Order Comment: Flor martell Type: BLOOD SPECIMEN Ordering Facility: [facility] Address: [address] [place] [address] Performed By: #### 5 8410-2 #### [facility] CLIA [id number] [address] CNDSon 02-10-2023 CNDS HNO ID: [id number] Author: Mary Paul MD Service: Obstetrics Author [...] 30 minutes in discharge day management. Henrry Groman Division of Maternal Medicine [facility] DISCHARGE SUMMARY OBSTETRICS PATIENT NAME: Nestor Lopez [...] DURING HOSPITALIZATION: Delivery Summary: [place]ruthi Angela [[id number]] Delivery Information: Delivery Date: 02/07/23 Delivery type: , Low Transverse Delivering Clinician: Areli Whitehead MD Vacuum Used: No Forceps Used: No [place]: Gender: Female Weight (grams): 1340 g One Minute : 1 Five Minute : 2 Procedures (if applicable) Recent Surgical Summary Past Procedures (01/11/2023 to Today) Date Procedures Providers Location 02/07/2023 SECTION Areli Whitehead (Primary)Yarely Sherwood [facility] Hospital Course: 22 year old female who is Postoperative Day #3 from delivery as noted above. 22yo who initially presented to [facility] for evaluation of abdominal pain, nausea, and vomiting. She was diagnosed with HELLP syndrome given low platelets (40) and elevated liver enzymes (221/205 AST/ALT). She was transferred to [facility] for further management. She underwent urgent low transverse section under general anesthesia on 02/07 at 29w0d with delivery of a liveborn female infant, Shruthi. weight was 2lb 15 oz and initial Apgars were 1, 2, and 7. The was stabilized and transferred to [facility]. She initially had CBC, CMP trended [...] She will follow up with her primary ASTROPHYSICS TEACHER for a Blood Pressure check. Consulting Teams [...] own af (more content not included)... Normal [facility] Comprehensive metabolic 2000 panelon 02-10-2023 Albumin [Mass/Vol] 3.1 g/dL Low 3.9-4.9 [facility] Comment on above: Order Comment: Speci men Type: BLOOD SPECIMEN Ordering Facility: [facility] Address: [address] [address] Performed By: #### 2 4323-8, 3084-1, 44777-5 #### [facility] CLIA [id number] [address] ALP [Catalytic activity/Vol] 85 U/L Normal 34-123 [facility] Comment on above: Order Comment: Speci men Type: BLOOD SPECIMEN Ordering Facility: [facility] Address: [address] [address] Performed By: #### 2 4323-8, 3084-1, 15095-6 #### [facility] CLIA [id number] [address] ALT With P-5'-P [Catalytic activity/Vol] 121 U/L High 7-38 [facility] Comment on above: Order Comment: Speci men Type: BLOOD SPECIMEN Ordering Facility: [facility] Address: [address] [place] [address] Performed By: #### 2 4323-8, 4-1, 85532-1 #### [facility] CLIA [id number] [address] Anion gap [Moles/Vol] 10 mmol/L Normal 9-18 [facility] Comment on above: Order Comment: Speci men Type: BLOOD SPECIMEN Ordering Facility: [facility] Address: [address] [place] [address] Performed By: #### 2 4323-8, 3084-1, 38074-1 #### [facility] CLIA [id number] [address] AST With P-5'-P [Catalytic activity/Vol] 46 U/L High 13-35 [facility] Comment on above: Order Comment: Speci men Type: BLOOD SPECIMEN Ordering Facility: [facility] Address: [address] [address] Performed By: #### 2 4323-8, 3084-1, 20588-9 #### [facility] CLIA [id number] [address] [place] Bilirubin [Mass/Vol] 0.4 mg/dL Normal 0.2-1.3 [facility] Comment on above: Order Comment: Speci men Type: BLOOD SPECIMEN Ordering Facility: [facility] Address: [address] [place] [address] Performed By: #### 2 4323-8, 4-1, 60435-0 #### [facility] CLIA [id number] 1 [place] [address] [place] Calcium [Mass/Vol] 9.1 mg/dL Normal 8.5-10.2 [facility] Comment on above: Order Comment: Speci men Type: BLOOD SPECIMEN Ordering Facility: [facility] Address: [address] [place] [address] Performed By: #### 2 4323-8, 3083-, 60559-5 #### [facility] CLIA [id number] [address] [place] Chloride [Moles/Vol] 103 mmol/L Normal 97-105 [facility] Comment on above: Order Comment: Speci men Type: BLOOD SPECIMEN Ordering Facility: [facility] Address: [address] [place] [address] Performed By: #### 2 4323-8, 3083-1, 12004-9 #### [facility] CLIA [id number] 1 [place] [address] [place] CO2 [Moles/Vol] 26 mmol/L Normal 22-30 [facility] Comment on above: Order Comment: Speci men Type: BLOOD SPECIMEN Ordering Facility: [facility] Address: [address] [place] [address] Performed By: #### 2 4323-8, 3083-1, 20301-6 #### [facility] CLIA [id number] [address] [place] Creatinine [Mass/Vol] 0.53 mg/dL Low 0.58-0.96 [facility] Comment on above: Order Comment: Miriambob martell Type: BLOOD SPECIMEN Ordering Facility: [facility] Address: [address] [facility] [place] [id number] Performed By: #### 2 4323-8, 3084-1, 43820-6 #### [facility] CLIA [id number] [address] [place] ESTIMATED GLOMERULAR FILTRATION RATE 135 mL/min/1.73m??? Normal >=60 [facility] Comment on above: Order Comment: Flor jayshree Type: BLOOD SPECIMEN Ordering Facility: [facility] Address: [address] Result Comment: Majo mated Glomerular Filtration [...] GFR. Performed By: #### 2 4323-8, 3084-1, 57981-0 #### [facility] CLIA [id number] 1 [place] [address] [place] Glucose [Mass/Vol] 83 mg/dL Normal 74-99 [facility] Comment on above: Order Comment: Flor martell Type: BLOOD SPECIMEN Ordering Facility: [facility] Address: [address] [place] [address] Result Comment: The [place] Diabetes Association (ADA) provides guidance for cutoff [...] Standards of Medical Care in Diabetes 2016, [place] Diabetes Association. Diabetes Care. 2016.39(Suppl 1). Performed By: #### 2 4323-8, 3084-1, 59005-7 #### [facility] CLIA [id number] [address] [place] Potassium [Moles/Vol] 3.9 mmol/L Normal 3.7-5.1 [facility] Comment on above: Order Comment: Speci men Type: BLOOD SPECIMEN Ordering Facility: [facility] Address: [address] [address] Performed By: #### 2 4323-8, 3084-1, 62042-4 #### [facility] CLIA [id number] 1 [place] [address] [place] Protein [Mass/Vol] 5.6 g/dL Low 6.3-8.0 [facility] Comment on above: Order Comment: Speci men Type: BLOOD SPECIMEN Ordering Facility: [facility] Address: [address] [address] Performed By: #### 2 4323-8, 3084-1, 01986-0 #### [facility] CLIA [id number] [address] [place] Sodium [Moles/Vol] 139 mmol/L Normal 136-144 [facility] Comment on above: Order Comment: Speci men Type: BLOOD SPECIMEN Ordering Facility: [facility] Address: [address] [address] Performed By: #### 2 4323-8, 3084-1, 14376-4 #### [facility] CLIA [id number] 1 [place] [address] [place] Urea nitrogen [Mass/Vol] 9 mg/dL Normal 7-21 [facility] Comment on above: Order Comment: Speci men Type: BLOOD SPECIMEN Ordering Facility: [facility] Address: [address] [address] Performed By: #### 2 4323-8, 3084-1, 95734-3 #### [facility] CLIA [id number] [address] [facility] NURSING PROGon 02-10-2023 NURSING PROG HNO ID: [id number] Author: Yuli Vera RN Service: Nursing Author Type: Registered Nurse Type: Nursing Progress Note Filed: 02/09/2023 10:10 PM Note Text: Patient received phone call from [place] that is not doing well at this time and to have her phone available to be contacted. Patient and family upset and anxious and would like to go to [facility] to visit. Patient does have an order for a pass to visit at [facility]. However, this RN clarified with Dr. Sherwood the requirements of patient to visit throughout the night. She must return for vital signs checked q4h and q12 am lab draw at 0600. Spoke with patient and family and they are understanding of requirements. Normal [facility] CBC panel Auto (Bld)on 02-09 Erythrocyte distribution width (RBC) [Ratio] 15.6 % High 11.5-15.0 [facility] Comment on above: Order Comment: Speci men Type: BLOOD SPECIMEN Ordering Facility: [facility] Address: [address] [place] [address] Performed By: #### 5 8410-2 #### [facility] CLIA [id number] [address] Hematocrit (Bld) [Volume fraction] 26.0 % Low 36.0-46.0 [facility] Comment on above: Order Comment: Speci men Type: BLOOD SPECIMEN Ordering Facility: [facility] Address: [address] [address] Performed By: #### 5 8410-2 #### [facility] CLIA [id number] [address] [place] Hemoglobin (Bld) [Mass/Vol] 8.5 g/dL Low 11.5-15.5 [facility] Comment on above: Order Comment: Speci men Type: BLOOD SPECIMEN Ordering Facility: [facility] Address: [address] [address] Performed By: #### 5 8410-2 #### [facility] CLIA [id number] [address] MCH (RBC) [Entitic mass] 27.6 pg Normal 26.0-34.0 [facility] Comment on above: Order Comment: Speci men Type: BLOOD SPECIMEN Ordering Facility: [facility] Address: [address] [place] [address] Performed By: #### 5 8410-2 #### [facility] CLIA [id number] [address] MCHC (RBC) [Mass/Vol] 32.7 g/dL Normal 30.5-36.0 [facility] Comment on above: Order Comment: Speci men Type: BLOOD SPECIMEN Ordering Facility: [facility] Address: [address] [place] [address] Performed By: #### 5 8410-2 #### [facility] CLIA [id number] [address] MCV (RBC) [Entitic vol] 84.4 fL Normal 80.0-100.0 [facility] Comment on above: Order Comment: Speci men Type: BLOOD SPECIMEN Ordering Facility: [facility] Address: [address] [place] [address] Performed By: #### 5 8410-2 #### [facility] CLIA [id number] [address] Nucleated RBC (Bld) [#/Vol] 0.08 10*3/uL High <0.01 [facility] Comment on above: Order Comment: Speci men Type: BLOOD SPECIMEN Ordering Facility: [facility] Address: [address] [place] [address] Performed By: #### 5 8410-2 #### [facility] CLIA [id number] [address] Platelet mean volume (Bld) [Entitic vol] 10.7 fL Normal 9.0-12.7 [facility] Comment on above: Order Comment: Speci men Type: BLOOD SPECIMEN Ordering Facility: [facility] Address: [address] [address] Performed By: #### 5 8410-2 #### [facility] CLIA [id number] [address] Platelets (Bld) [#/Vol] 143 10*3/uL Low 150-400 [facility] Comment on above: Order Comment: Speci men Type: BLOOD SPECIMEN Ordering Facility: [facility] Address: [address] [place] [address] Result Comment: No c lot detected. Performed By: #### 5 8410-2 #### [facility] CLIA [id number] [address] RBC (Bld) [#/Vol] 3.08 10*6/uL Low 3.90-5.20 [facility] Comment on above: Order Comment: Speci men Type: BLOOD SPECIMEN Ordering Facility: [facility] Address: [address] [place] [address] Performed By: #### 5 8410-2 #### [facility] CLIA [id number] [address] WBC (Bld) [#/Vol] 17.67 10*3/uL High 3.70-11.00 [facility] Comment on above: Order Comment: Speci men Type: BLOOD SPECIMEN Ordering Facility: [facility] Address: [address] [place] [address] Performed By: #### 5 8410-2 #### [facility] CLIA [id number] [address] Erythrocyte distribution width (RBC) [Ratio] 15.8 % High 11.5-15.0 [facility] Comment on above: Order Comment: Speci men Type: BLOOD SPECIMEN Ordering Facility: [facility] Address: [address] [place] [address] Performed By: #### 5 8410-2 #### [facility] CLIA [id number] [address] Hematocrit (Bld) [Volume fraction] 21.2 % Low 36.0-46.0 [facility] Comment on above: Order Comment: Speci men Type: BLOOD SPECIMEN Ordering Facility: [facility] Address: [address] [place] [address] Performed By: #### 5 8410-2 #### [facility] CLIA [id number] [address] OF [facility] Hemoglobin (Bld) [Mass/Vol] 7.1 g/dL Low 11.5-15.5 [facility] Comment on above: Order Comment: Speci men Type: BLOOD SPECIMEN Ordering Facility: [facility] Address: [address] [place] [address] Performed By: #### 5 8410-2 #### [facility] CLIA [id number] [address] MCH (RBC) [Entitic mass] 28.1 pg Normal 26.0-34.0 [facility] Comment on above: Order Comment: Speci men Type: BLOOD SPECIMEN Ordering Facility: [facility] Address: [address] [place] [address] Performed By: #### 5 8410-2 #### [facility] CLIA [id number] [address] OF [facility] MCHC (RBC) [Mass/Vol] 33.5 g/dL Normal 30.5-36.0 [facility] Comment on above: Order Comment: Speci men Type: BLOOD SPECIMEN Ordering Facility: [facility] Address: [address] [place] [address] Performed By: #### 5 8410-2 #### [facility] CLIA [id number] [address] MCV (RBC) [Entitic vol] 83.8 fL Normal 80.0-100.0 [facility] Comment on above: Order Comment: Speci men Type: BLOOD SPECIMEN Ordering Facility: [facility] Address: [address] [place] [address] Performed By: #### 5 8410-2 #### [facility] CLIA [id number] [address] Nucleated RBC (Bld) [#/Vol] 0.07 10*3/uL High <0.01 [facility] Comment on above: Order Comment: Speci men Type: BLOOD SPECIMEN Ordering Facility: [facility] Address: [address] [place] [address] Performed By: #### 5 8410-2 #### [facility] CLIA [id number] [address] Platelet mean volume (Bld) [Entitic vol] 10.0 fL Normal 9.0-12.7 [facility] Comment on above: Order Comment: Speci men Type: BLOOD SPECIMEN Ordering Facility: [facility] Address: [address] [place] [address] Performed By: #### 5 8410-2 #### [facility] CLIA [id number] [address] Platelets (Bld) [#/Vol] 73 10*3/uL Low 150-400 A [facility] Comment on above: Order Comment: Speci men Type: BLOOD SPECIMEN Ordering Facility: [facility] Address: [address] [place] [address] Result Comment: No c lot detected. Performed By: #### 5 8410-2 #### [facility] CLIA [id number] [address] RBC (Bld) [#/Vol] 2.53 10*6/uL Low 3.90-5.20 [facility] Comment on above: Order Comment: Speci men Type: BLOOD SPECIMEN Ordering Facility: [facility] Address: [address] [place] [address] Performed By: #### 5 8410-2 #### [facility] CLIA [id number] [address] [place] WBC (Bld) [#/Vol] 13.68 10*3/uL High 3.70-11.00 [facility] Comment on above: Order Comment: Speci men Type: BLOOD SPECIMEN Ordering Facility: [facility] Address: [address] [place] [address] Performed By: #### 5 8410-2 #### [facility] CLIA [id number] [address] Comprehensive metabolic 2000 panelon 02-09-2023 Albumin [Mass/Vol] 3.5 g/dL Low 3.9-4.9 [facility] Comment on above: Order Comment: Speci men Type: BLOOD SPECIMEN Ordering Facility: [facility] Address: [address] [place] [address] Performed By: #### 5 8410-2 #### [facility] CLIA [id number] [address] OF [facility] ALP [Catalytic activity/Vol] 96 U/L Normal 34-123 [facility] Comment on above: Order Comment: Speci men Type: BLOOD SPECIMEN Ordering Facility: [facility] Address: [address] [place] [address] Performed By: #### 5 8410-2 #### [facility] CLIA [id number] [address] ALT With P-5'-P [Catalytic activity/Vol] 157 U/L High 7-38 [facility] Comment on above: Order Comment: Speci men Type: BLOOD SPECIMEN Ordering Facility: [facility] Address: [address] [place] [address] Performed By: #### 5 8410-2 #### [facility] CLIA [id number] [address] Anion gap [Moles/Vol] 12 mmol/L Normal 9-18 [facility] Comment on above: Order Comment: Speci men Type: BLOOD SPECIMEN Ordering Facility: [facility] Address: [address] [place] [address] Performed By: #### 5 8410-2 #### [facility] CLIA [id number] [address] [place] AST With P-5'-P [Catalytic activity/Vol] 67 U/L High 13-35 [facility] Comment on above: Order Comment: Speci men Type: BLOOD SPECIMEN Ordering Facility: [facility] Address: [address] [place] [address] Performed By: #### 5 8410-2 #### [facility] CLIA [id number] [address] [place] Bilirubin [Mass/Vol] 0.4 mg/dL Normal 0.2-1.3 [facility] Comment on above: Order Comment: Speci men Type: BLOOD SPECIMEN Ordering Facility: [facility] Address: [address] [place] [address] Performed By: #### 5 8410-2 #### [facility] CLIA [id number] [address] [place] Calcium [Mass/Vol] 9.8 mg/dL Normal 8.5-10.2 [facility] Comment on above: Order Comment: Speci men Type: BLOOD SPECIMEN Ordering Facility: [facility] Address: [address] [place] [address] Performed By: #### 5 8410-2 #### [facility] CLIA [id number] [address] [place] Chloride [Moles/Vol] 102 mmol/L Normal 97-105 [facility] Comment on above: Order Comment: Speci men Type: BLOOD SPECIMEN Ordering Facility: [facility] Address: [address] [place] [address] Performed By: #### 5 8410-2 #### [facility] CLIA [id number] [address] [place] CO2 [Moles/Vol] 24 mmol/L Normal 22-30 [facility] Comment on above: Order Comment: Speci men Type: BLOOD SPECIMEN Ordering Facility: [facility] Address: [address] [address] Performed By: #### 5 8410-2 #### [facility] CLIA [id number] [address] STATES OF [facility] Creatinine [Mass/Vol] 0.53 mg/dL Low 0.58-0.96 [facility] Comment on above: Order Comment: Flor martell Type: BLOOD SPECIMEN Ordering Facility: [facility] Address: [address] [place] [address] Performed By: #### 5 8410-2 #### [facility] CLIA [id number] [address] OF [facility] ESTIMATED GLOMERULAR FILTRATION RATE 135 mL/min/1.73m??? Normal >=60 [facility] Comment on above: Order Comment: Flor martell Type: BLOOD SPECIMEN Ordering Facility: [facility] Address: [address] [place] [address] Result Comment: Majo mated Glomerular Filtration Rate [...] GFR. Performed By: #### 5 8410-2 #### [facility] CLIA [id number] [address] Glucose [Mass/Vol] 111 mg/dL High 74-99 [facility] Comment on above: Order Comment: Flor martell Type: BLOOD SPECIMEN Ordering Facility: [facility] Address: [address] [place] [address] Result Comment: The [place] Diabetes Association (ADA) provides guidance for cutoff [...] Standards of Medical Care in Diabetes 2016, [place] Diabetes Association. Diabetes Care. 2016.39(Suppl 1). Performed By: #### 5 8410-2 #### [facility] CLIA [id number] [address] [place] Potassium [Moles/Vol] 4.1 mmol/L Normal 3.7-5.1 [facility] Comment on above: Order Comment: Speci men Type: BLOOD SPECIMEN Ordering Facility: [facility] Address: [address] [place] [address] Performed By: #### 5 8410-2 #### [facility] CLIA [id number] [address] [place] Protein [Mass/Vol] 6.2 g/dL Low 6.3-8.0 [facility] Comment on above: Order Comment: Speci men Type: BLOOD SPECIMEN Ordering Facility: [facility] Address: [address] [address] Performed By: #### 5 8410-2 #### [facility] CLIA [id number] [address] STATES OF [facility] Sodium [Moles/Vol] 138 mmol/L Normal 136-144 [facility] Comment on above: Order Comment: Speci men Type: BLOOD SPECIMEN Ordering Facility: [facility] Address: [address] [address] Performed By: #### 5 8410-2 #### [facility] CLIA [id number] [address] [place] Urea nitrogen [Mass/Vol] 8 mg/dL Normal 7-21 [facility] Comment on above: Order Comment: Speci men Type: BLOOD SPECIMEN Ordering Facility: [facility] Address: [address] [address] Performed By: #### 5 8410-2 #### [facility] CLIA [id number] [address] Albumin [Mass/Vol] 2.8 g/dL Low 3.9-4.9 [facility] Comment on above: Order Comment: Speci men Type: BLOOD SPECIMEN Ordering Facility: [facility] Address: [address] [place] [address] Performed By: #### 5 8410-2 #### [facility] CLIA [id number] [address] ALP [Catalytic activity/Vol] 75 U/L Normal 34-123 [facility] Comment on above: Order Comment: Speci men Type: BLOOD SPECIMEN Ordering Facility: [facility] Address: [address] [place] [address] Performed By: #### 5 8410-2 #### [facility] CLIA [id number] [address] ALT With P-5'-P [Catalytic activity/Vol] 155 U/L High 7-38 [facility] Comment on above: Order Comment: Speci men Type: BLOOD SPECIMEN Ordering Facility: [facility] Address: [address] [place] [address] Performed By: #### 5 8410-2 #### [facility] CLIA [id number] [address] Anion gap [Moles/Vol] 9 mmol/L Normal 9-18 [facility] Comment on above: Order Comment: Speci men Type: BLOOD SPECIMEN Ordering Facility: [facility] Address: [address] [address] Performed By: #### 5 8410-2 #### [facility] CLIA [id number] [address] AST With P-5'-P [Catalytic activity/Vol] 95 U/L High 13-35 [facility] Comment on above: Order Comment: Speci men Type: BLOOD SPECIMEN Ordering Facility: [facility] Address: [address] [address] Performed By: #### 5 8410-2 #### [facility] CLIA [id number] [address] [place] Bilirubin [Mass/Vol] 0.7 mg/dL Normal 0.2-1.3 [facility] Comment on above: Order Comment: Speci men Type: BLOOD SPECIMEN Ordering Facility: [facility] Address: [address] [place] [address] Performed By: #### 5 8410-2 #### [facility] CLIA [id number] [address] [place] Calcium [Mass/Vol] 8.3 mg/dL Low 8.5-10.2 [facility] Comment on above: Order Comment: Speci men Type: BLOOD SPECIMEN Ordering Facility: [facility] Address: [address] [place] [address] Performed By: #### 5 8410-2 #### [facility] CLIA [id number] [address] [place] Chloride [Moles/Vol] 102 mmol/L Normal 97-105 [facility] Comment on above: Order Comment: Speci men Type: BLOOD SPECIMEN Ordering Facility: [facility] Address: [address] [place] [address] Performed By: #### 5 8410-2 #### [facility] CLIA [id number] [address] [place] CO2 [Moles/Vol] 25 mmol/L Normal 22-30 [facility] Comment on above: Order Comment: Speci men Type: BLOOD SPECIMEN Ordering Facility: [facility] Address: [address] [place] [address] Performed By: #### 5 8410-2 #### [facility] CLIA [id number] [address] [place] Creatinine [Mass/Vol] 0.55 mg/dL Low 0.58-0.96 [facility] Comment on above: Order Comment: Speci men Type: BLOOD SPECIMEN Ordering Facility: [facility] Address: [address] [place] [address] Performed By: #### 5 8410-2 #### [facility] CLIA [id number] 1 [place] [address] [place] ESTIMATED GLOMERULAR FILTRATION RATE 134 mL/min/1.73m??? Normal >=60 [facility] Comment on above: Order Comment: Flor jayshree Type: BLOOD SPECIMEN Ordering Facility: [facility] Address: [address] [place] [address] Result Comment: Majo mated Glomerular Filtration Rate [...] GFR. Performed By: #### 5 8410-2 #### [facility] CLIA [id number] 1 [place] [address] [place] Glucose [Mass/Vol] 82 mg/dL Normal 74-99 [facility] Comment on above: Order Comment: Specbob martell Type: BLOOD SPECIMEN Ordering Facility: [facility] Address: [address] [place] [address] Result Comment: The [place] Diabetes Association (ADA) provides guidance for cutoff [...] Standards of Medical Care in Diabetes 2016, [employer] Diabetes Association. Diabetes Care. 2016.39(Suppl 1). Performed By: #### 5 8410-2 #### [facility] CLIA [id number] 1 [place] [address] [place] Potassium [Moles/Vol] 3.9 mmol/L Normal 3.7-5.1 [facility] Comment on above: Order Comment: Speci men Type: BLOOD SPECIMEN Ordering Facility: [facility] Address: [address] [address] Performed By: #### 5 8410-2 #### [facility] CLIA [id number] [address] [place] [facility] Protein [Mass/Vol] 5.0 g/dL Low 6.3-8.0 [facility] Comment on above: Order Comment: Speci men Type: BLOOD SPECIMEN Ordering Facility: [facility] Address: [address] [address] Performed By: #### 5 8410-2 #### [facility] CLIA [id number] [address] OF [facility] Sodium [Moles/Vol] 136 mmol/L Normal 136-144 [facility] Comment on above: Order Comment: Speci men Type: BLOOD SPECIMEN Ordering Facility: [facility] Address: [address] [address] Performed By: #### 5 8410-2 #### [facility] CLIA [id number] [address] [place] [facility] Urea nitrogen [Mass/Vol] 8 mg/dL Normal 7-21 [facility] Comment on above: Order Comment: Speci men Type: BLOOD SPECIMEN Ordering Facility: [facility] Address: [address] [address] Performed By: #### 5 8410-2 #### [facility] CLIA [id number] [address] [place] CBC panel Auto (Bld)on 02-08 Erythrocyte distribution width (RBC) [Ratio] 15.3 % High 11.5-15.0 [facility] Comment on above: Order Comment: Speci men Type: BLOOD SPECIMEN Ordering Facility: [facility] Address: [address] [address] Performed By: #### 5 8410-2 #### [facility] CLIA [id number] [address] Hematocrit (Bld) [Volume fraction] 21.5 % Low 36.0-46.0 [facility] Comment on above: Order Comment: Speci men Type: BLOOD SPECIMEN Ordering Facility: [facility] Address: [address] [place] [address] Performed By: #### 5 8410-2 #### [facility] CLIA [id number] [address] Hemoglobin (Bld) [Mass/Vol] 7.3 g/dL Low 11.5-15.5 [facility] Comment on above: Order Comment: Speci men Type: BLOOD SPECIMEN Ordering Facility: [facility] Address: [address] [place] [address] Performed By: #### 5 8410-2 #### [facility] CLIA [id number] [address] MCH (RBC) [Entitic mass] 28.3 pg Normal 26.0-34.0 [facility] Comment on above: Order Comment: Speci men Type: BLOOD SPECIMEN Ordering Facility: [facility] Address: [address] [place] [address] Performed By: #### 5 8410-2 #### [facility] CLIA [id number] [address] MCHC (RBC) [Mass/Vol] 34.0 g/dL Normal 30.5-36.0 [facility] Comment on above: Order Comment: Speci men Type: BLOOD SPECIMEN Ordering Facility: [facility] Address: [address] [place] [address] Performed By: #### 5 8410-2 #### [facility] CLIA [id number] [address] MCV (RBC) [Entitic vol] 83.3 fL Normal 80.0-100.0 [facility] Comment on above: Order Comment: Speci men Type: BLOOD SPECIMEN Ordering Facility: [facility] Address: [address] [address] Performed By: #### 5 8410-2 #### [facility] CLIA [id number] [address] OF [facility] Nucleated RBC (Bld) [#/Vol] 0.06 10*3/uL High <0.01 [facility] Comment on above: Order Comment: Speci men Type: BLOOD SPECIMEN Ordering Facility: [facility] Address: [address] [place] [address] Performed By: #### 5 8410-2 #### [facility] CLIA [id number] [address] Platelet mean volume (Bld) [Entitic vol] 10.2 fL Normal 9.0-12.7 [facility] Comment on above: Order Comment: Speci men Type: BLOOD SPECIMEN Ordering Facility: [facility] Address: [address] [place] [address] Performed By: #### 5 8410-2 #### [facility] CLIA [id number] [address] Platelets (Bld) [#/Vol] 69 10*3/uL Low 150-400 A [facility] Comment on above: Order Comment: Speci men Type: BLOOD SPECIMEN Ordering Facility: [facility] Address: [address] [place] [address] Result Comment: No c lot detected. Performed By: #### 5 8410-2 #### [facility] CLIA [id number] [address] OF [facility] RBC (Bld) [#/Vol] 2.58 10*6/uL Low 3.90-5.20 [facility] Comment on above: Order Comment: Speci men Type: BLOOD SPECIMEN Ordering Facility: [facility] Address: [address] [place] [address] Performed By: #### 5 8410-2 #### [facility] CLIA [id number] [address] [place] WBC (Bld) [#/Vol] 13.63 10*3/uL High 3.70-11.00 [facility] Comment on above: Order Comment: Speci men Type: BLOOD SPECIMEN Ordering Facility: [facility] Address: [address] [place] [address] Performed By: #### 5 8410-2 #### [facility] CLIA [id number] [address] OF [facility] Erythrocyte distribution width (RBC) [Ratio] 15.5 % High 11.5-15.0 [facility] Comment on above: Order Comment: Speci men Type: BLOOD SPECIMEN Ordering Facility: [facility] Address: [address] [place] [address] Performed By: #### 5 8410-2 #### [facility] CLIA [id number] [address] Hematocrit (Bld) [Volume fraction] 23.5 % Low 36.0-46.0 [facility] Comment on above: Order Comment: Speci men Type: BLOOD SPECIMEN Ordering Facility: [facility] Address: [address] [place] [address] Performed By: #### 5 8410-2 #### [facility] CLIA [id number] [address] Hemoglobin (Bld) [Mass/Vol] 7.8 g/dL Low 11.5-15.5 [facility] Comment on above: Order Comment: Speci men Type: BLOOD SPECIMEN Ordering Facility: [facility] Address: [address] [place] [address] Performed By: #### 5 8410-2 #### [facility] CLIA [id number] [address] MCH (RBC) [Entitic mass] 27.4 pg Normal 26.0-34.0 [facility] Comment on above: Order Comment: Speci men Type: BLOOD SPECIMEN Ordering Facility: [facility] Address: [address] [place] [address] Performed By: #### 5 8410-2 #### [facility] CLIA [id number] [address] MCHC (RBC) [Mass/Vol] 33.2 g/dL Normal 30.5-36.0 [facility] Comment on above: Order Comment: Speci men Type: BLOOD SPECIMEN Ordering Facility: [facility] Address: [address] [place] [address] Performed By: #### 5 8410-2 #### [facility] CLIA [id number] [address] MCV (RBC) [Entitic vol] 82.5 fL Normal 80.0-100.0 [facility] Comment on above: Order Comment: Speci men Type: BLOOD SPECIMEN Ordering Facility: [facility] Address: [address] [place] [address] Performed By: #### 5 8410-2 #### [facility] CLIA [id number] [address] Nucleated RBC (Bld) [#/Vol] 10*3/uL Normal <0.01 [facility] Comment on above: Order Comment: Speci men Type: BLOOD SPECIMEN Ordering Facility: [facility] Address: [address] [place] [address] Performed By: #### 5 8410-2 #### [facility] CLIA [id number] [address] Platelet mean volume (Bld) [Entitic vol] 10.5 fL Normal 9.0-12.7 [facility] Comment on above: Order Comment: Speci men Type: BLOOD SPECIMEN Ordering Facility: [facility] Address: [address] [place] [address] Performed By: #### 5 8410-2 #### [facility] CLIA [id number] [address] [place] Platelets (Bld) [#/Vol] 66 10*3/uL Low 150-400 A [facility] Comment on above: Order Comment: Speci men Type: BLOOD SPECIMEN Ordering Facility: [facility] Address: [address] [address] Result Comment: No c lot detected. Performed By: #### 5 8410-2 #### [facility] CLIA [id number] [address] [facility] RBC (Bld) [#/Vol] 2.85 10*6/uL Low 3.90-5.20 [facility] Comment on above: Order Comment: Speci men Type: BLOOD SPECIMEN Ordering Facility: [facility] Address: [address] [address] Performed By: #### 5 8410-2 #### [facility] CLIA [id number] [address] [facility] WBC (Bld) [#/Vol] 11.79 10*3/uL High 3.70-11.00 [facility] Comment on above: Order Comment: Speci men Type: BLOOD SPECIMEN Ordering Facility: [facility] Address: [address] [address] Performed By: #### 5 8410-2 #### [facility] CLIA [id number] [address] Erythrocyte distribution width (RBC) [Ratio] 15.2 % High 11.5-15.0 [facility] Comment on above: Order Comment: Speci men Type: BLOOD SPECIMEN Ordering Facility: [facility] Address: [address] [address] Performed By: #### 5 8410-2 #### [facility] CLIA [id number] [address] Hematocrit (Bld) [Volume fraction] 23.7 % Low 36.0-46.0 [facility] Comment on above: Order Comment: Speci men Type: BLOOD SPECIMEN Ordering Facility: [facility] Address: [address] [address] Performed By: #### 5 8410-2 #### [facility] CLIA [id number] [address] [facility] Hemoglobin (Bld) [Mass/Vol] 8.0 g/dL Low 11.5-15.5 [facility] Comment on above: Order Comment: Speci men Type: BLOOD SPECIMEN Ordering Facility: [facility] Address: [address] [place] [address] Performed By: #### 5 8410-2 #### [facility] CLIA [id number] [address] MCH (RBC) [Entitic mass] 27.9 pg Normal 26.0-34.0 [facility] Comment on above: Order Comment: Speci men Type: BLOOD SPECIMEN Ordering Facility: [facility] Address: [address] [place] [address] Performed By: #### 5 8410-2 #### [facility] CLIA [id number] [address] MCHC (RBC) [Mass/Vol] 33.8 g/dL Normal 30.5-36.0 [facility] Comment on above: Order Comment: Speci men Type: BLOOD SPECIMEN Ordering Facility: [facility] Address: [address] [place] [address] Performed By: #### 5 8410-2 #### [facility] CLIA [id number] [address] MCV (RBC) [Entitic vol] 82.6 fL Normal 80.0-100.0 [facility] Comment on above: Order Comment: Speci men Type: BLOOD SPECIMEN Ordering Facility: [facility] Address: [address] [place] [address] Performed By: #### 5 8410-2 #### [facility] CLIA [id number] [address] Nucleated RBC (Bld) [#/Vol] 10*3/uL Normal <0.01 [facility] Comment on above: Order Comment: Speci men Type: BLOOD SPECIMEN Ordering Facility: [facility] Address: [address] [address] Performed By: #### 5 8410-2 #### [facility] CLIA [id number] [address] Platelet mean volume (Bld) [Entitic vol] 10.1 fL Normal 9.0-12.7 [facility] Comment on above: Order Comment: Speci men Type: BLOOD SPECIMEN Ordering Facility: [facility] Address: [address] [address] Performed By: #### 5 8410-2 #### [facility] CLIA [id number] [address] Platelets (Bld) [#/Vol] 83 10*3/uL Low 150-400 [facility] Comment on above: Order Comment: Speci men Type: BLOOD SPECIMEN Ordering Facility: [facility] Address: [address] [place] [address] Result Comment: No c lot detected. Performed By: #### 5 8410-2 #### [facility] CLIA [id number] [address] RBC (Bld) [#/Vol] 2.87 10*6/uL Low 3.90-5.20 [facility] Comment on above: Order Comment: Speci men Type: BLOOD SPECIMEN Ordering Facility: [facility] Address: [address] [address] Performed By: #### 5 8410-2 #### [facility] CLIA [id number] [address] [facility] WBC (Bld) [#/Vol] 13.01 10*3/uL High 3.70-11.00 [facility] Comment on above: Order Comment: Speci men Type: BLOOD SPECIMEN Ordering Facility: [facility] Address: [address] [place] [address] Performed By: #### 5 8410-2 #### [facility] CLIA [id number] [address] [place] Erythrocyte distribution width (RBC) [Ratio] 14.8 % Normal 11.5-15.0 [facility] Comment on above: Order Comment: Speci men Type: BLOOD SPECIMEN Ordering Facility: [facility] Address: [address] [place] [address] Performed By: #### 2 4323-8, 3084-1, 50967-0 #### [facility] CLIA [id number] [address] Hematocrit (Bld) [Volume fraction] 23.4 % Low 36.0-46.0 [facility] Comment on above: Order Comment: Speci men Type: BLOOD SPECIMEN Ordering Facility: [facility] Address: [address] [place] [address] Performed By: #### 2 4323-8, 4-1, 91845-4 #### [facility] CLIA [id number] [address] [place] [address] Hemoglobin (Bld) [Mass/Vol] 7.8 g/dL Low 11.5-15.5 [facility] Comment on above: Order Comment: Speci men Type: BLOOD SPECIMEN Ordering Facility: [facility] Address: [address] [place] [address] Performed By: #### 2 4323-8, 4-1, 22866-7 #### [facility] CLIA [id number] [address] [place] [address] OF [facility] MCH (RBC) [Entitic mass] 27.7 pg Normal 26.0-34.0 [facility] Comment on above: Order Comment: Speci men Type: BLOOD SPECIMEN Ordering Facility: [facility] Address: [address] [place] [address] Performed By: #### 2 4323-8, 3084-1, 49049-7 #### [facility] CLIA [id number] [address] [place] MCHC (RBC) [Mass/Vol] 33.3 g/dL Normal 30.5-36.0 [facility] Comment on above: Order Comment: Speci men Type: BLOOD SPECIMEN Ordering Facility: [facility] Address: [address] [address] Performed By: #### 2 4323-8, 3083-, 27613-5 #### [facility] CLIA [id number] [address] [place] MCV (RBC) [Entitic vol] 83.0 fL Normal 80.0-100.0 [facility] Comment on above: Order Comment: Speci men Type: BLOOD SPECIMEN Ordering Facility: [facility] Address: [address] [place] [address] Performed By: #### 2 4323-8, 3083-08, #### [facility] CLIA [id number] [address] [place] [address] OF [facility] Nucleated RBC (Bld) [#/Vol] 10*3/uL Normal <0.01 [facility] Comment on above: Order Comment: Speci men Type: BLOOD SPECIMEN Ordering Facility: [facility] Address: [address] [place] [address] Performed By: #### 2 4323-8, 3083-08, #### [facility] CLIA [id number] [address] [place] [address] [place] Platelet mean volume (Bld) [Entitic vol] 11.0 fL Normal 9.0-12.7 [facility] Comment on above: Order Comment: Speci men Type: BLOOD SPECIMEN Ordering Facility: [facility] Address: [address] [address] Performed By: #### 2 4323-8, 1, 18341-9 #### [facility] CLIA [id number] [address] [place] Platelets (Bld) [#/Vol] 95 10*3/uL Low 150-400 A [facility] Comment on above: Order Comment: Speci men Type: BLOOD SPECIMEN Ordering Facility: [facility] Address: [address] [address] Result Comment: No c lot detected. Performed By: #### 2 4323-8, 3084-1, 18845-1 #### [facility] CLIA [id number] [address] RBC (Bld) [#/Vol] 2.82 10*6/uL Low 3.90-5.20 [facility] Comment on above: Order Comment: Speci men Type: BLOOD SPECIMEN Ordering Facility: [facility] Address: [address] [address] Performed By: #### 2 4323-8, 3084-1, 63786-7 #### [facility] CLIA [id number] [address] WBC (Bld) [#/Vol] 14.31 10*3/uL High 3.70-11.00 [facility] Comment on above: Order Comment: Speci men Type: BLOOD SPECIMEN Ordering Facility: [facility] Address: [address] [address] Performed By: #### 2 4323-8, 3083-1, 25875-3 #### [facility] CLIA [id number] [address] [facility] Erythrocyte distribution width (RBC) [Ratio] 14.6 % Normal 11.5-15.0 [facility] Comment on above: Order Comment: Speci men Type: BLOOD SPECIMEN Ordering Facility: [facility] Address: [address] [address] Performed By: #### 2 4323-8, 3084-1, 81328-4 #### [facility] CLIA [id number] [address] Hematocrit (Bld) [Volume fraction] 26.6 % Low 36.0-46.0 [facility] Comment on above: Order Comment: Speci men Type: BLOOD SPECIMEN Ordering Facility: [facility] Address: [address] [address] Performed By: #### 2 4323-8, 3083-, 92093-8 #### [facility] CLIA [id number] [address] Hemoglobin (Bld) [Mass/Vol] 9.1 g/dL Low 11.5-15.5 [facility] Comment on above: Order Comment: Speci men Type: BLOOD SPECIMEN Ordering Facility: [facility] Address: [address] [place] [address] Performed By: #### 2 4323-8, 3083-, 95817-4 #### [facility] CLIA [id number] [address] MCH (RBC) [Entitic mass] 27.8 pg Normal 26.0-34.0 [facility] Comment on above: Order Comment: Speci men Type: BLOOD SPECIMEN Ordering Facility: [facility] Address: [address] [place] [address] Performed By: #### 2 432-8, 3083-08, 75052-5 #### [facility] CLIA [id number] [address] MCHC (RBC) [Mass/Vol] 34.2 g/dL Normal 30.5-36.0 [facility] Comment on above: Order Comment: Speci men Type: BLOOD SPECIMEN Ordering Facility: [facility] Address: [address] [place] [address] Performed By: #### 2 4323-8, 3083-08, 22018-6 #### [facility] CLIA [id number] [address] MCV (RBC) [Entitic vol] 81.3 fL Normal 80.0-100.0 [facility] Comment on above: Order Comment: Speci men Type: BLOOD SPECIMEN Ordering Facility: [facility] Address: [address] [address] Performed By: #### 2 4323-8, 3083-1, 11974-9 #### [facility] CLIA [id number] [address] [place] Nucleated RBC (Bld) [#/Vol] 10*3/uL Normal <0.01 [facility] Comment on above: Order Comment: Speci men Type: BLOOD SPECIMEN Ordering Facility: [facility] Address: [address] [place] [address] Performed By: #### 2 4323-8, 3084-1, 09104-7 #### [facility] CLIA [id number] [address] Platelet mean volume (Bld) [Entitic vol] 10.9 fL Normal 9.0-12.7 [facility] Comment on above: Order Comment: Speci men Type: BLOOD SPECIMEN Ordering Facility: [facility] Address: [address] [place] [address] Performed By: #### 2 4323-8, 4-1, 43772-0 #### [facility] CLIA [id number] [address] Platelets (Bld) [#/Vol] 121 10*3/uL Low 150-400 [facility] Comment on above: Order Comment: Speci men Type: BLOOD SPECIMEN Ordering Facility: [facility] Address: [address] [place] [address] Performed By: #### 2 4323-8, 3083-1, 24868-1 #### [facility] CLIA [id number] [address] [place] RBC (Bld) [#/Vol] 3.27 10*6/uL Low 3.90-5.20 [facility] Comment on above: Order Comment: Speci men Type: BLOOD SPECIMEN Ordering Facility: [facility] Address: [address] [place] [address] Performed By: #### 2 4323-8, 3084-1, 62970-6 #### [facility] CLIA [id number] [address] [place] WBC (Bld) [#/Vol] 15.95 10*3/uL High 3.70-11.00 [facility] Comment on above: Order Comment: Speci men Type: BLOOD SPECIMEN Ordering Facility: [facility] Address: [address] [place] [address] Performed By: #### 2 4323-8, 3084-1, 32008-8 #### [facility] CLIA [id number] [address] Calcium.ionized [Moles/Vol]o n 02-08-2023 Calcium.ionized (BldV) [Mass/Vol] 1.08 mmol/L Normal 1.08-1.30 [facility] Comment on above: Order Comment: Speci men Type: BLOOD SPECIMEN Ordering Facility: [facility] Address: [address] [place] [address] Performed By: #### 5 8410-2 #### [facility] CLIA [id number] [address] [place] [address] Calcium.ionized adjusted to pH 7.4 (Bld) [Moles/Vol] 1.09 mmol/L Normal 1.08-1.30 [facility] Comment on above: Order Comment: Speci men Type: BLOOD SPECIMEN Ordering Facility: [facility] Address: [address] [place] [address] Performed By: #### 5 8410-2 #### [facility] CLIA [id number] [address] [place] [address] Comprehensive metabolic 2000 panelon 02-08-2023 Albumin [Mass/Vol] 2.9 g/dL Low 3.9-4.9 [facility] Comment on above: Order Comment: Speci men Type: BLOOD SPECIMEN Ordering Facility: [facility] Address: [address] [place] [address] Performed By: #### 2 4323-8, 3084-1, 83501-9 #### [facility] CLIA [id number] [address] ALP [Catalytic activity/Vol] 80 U/L Normal 34-123 [facility] Comment on above: Order Comment: Speci men Type: BLOOD SPECIMEN Ordering Facility: [facility] Address: [address] [address] Performed By: #### 2 4323-8, 3084-1, 29248-9 #### [facility] CLIA [id number] [address] OF [facility] ALT With P-5'-P [Catalytic activity/Vol] 178 U/L High 7-38 [facility] Comment on above: Order Comment: Speci men Type: BLOOD SPECIMEN Ordering Facility: [facility] Address: [address] [address] Performed By: #### 2 4323-8, 3084-1, 53158-4 #### [facility] CLIA [id number] [address] OF [facility] Anion gap [Moles/Vol] 10 mmol/L Normal 9-18 [facility] Comment on above: Order Comment: Speci men Type: BLOOD SPECIMEN Ordering Facility: [facility] Address: [address] [address] Performed By: #### 2 4323-8, 4-1, 38393-0 #### [facility] CLIA [id number] [address] AST With P-5'-P [Catalytic activity/Vol] 126 U/L High 13-35 [facility] Comment on above: Order Comment: Speci men Type: BLOOD SPECIMEN Ordering Facility: [facility] Address: [address] [address] Performed By: #### 2 4323-8, 3084-1, 20914-7 #### [facility] CLIA [id number] [address] OF [facility] Bilirubin [Mass/Vol] 1.1 mg/dL Normal 0.2-1.3 [facility] Comment on above: Order Comment: Speci men Type: BLOOD SPECIMEN Ordering Facility: [facility] Address: [address] [address] Performed By: #### 2 4323-8, 3084-1, 81890-2 #### [facility] CLIA [id number] [address] [place] Calcium [Mass/Vol] 8.2 mg/dL Low 8.5-10.2 [facility] Comment on above: Order Comment: Speci men Type: BLOOD SPECIMEN Ordering Facility: [facility] Address: [address] [place] [address] Performed By: #### 2 4323-8, 3084-1, 84533-0 #### [facility] CLIA [id number] [address] [place] Chloride [Moles/Vol] 103 mmol/L Normal 97-105 [facility] Comment on above: Order Comment: Speci men Type: BLOOD SPECIMEN Ordering Facility: [facility] Address: [address] [place] [address] Performed By: #### 2 4323-8, 3084-1, 12448-1 #### [facility] CLIA [id number] [address] [place] CO2 [Moles/Vol] 24 mmol/L Normal 22-30 [facility] Comment on above: Order Comment: Speci men Type: BLOOD SPECIMEN Ordering Facility: [facility] Address: [address] [place] [address] Performed By: #### 2 4323-8, 3084-1, 74165-4 #### [facility] CLIA [id number] [address] [place] Creatinine [Mass/Vol] 0.62 mg/dL Normal 0.58-0.96 [facility] Comment on above: Order Comment: Speci men Type: BLOOD SPECIMEN Ordering Facility: [facility] Address: [address] [place] [address] Performed By: #### 2 4323-8, 3084-1, 34816-2 #### [facility] CLIA [id number] [address] [place] ESTIMATED GLOMERULAR FILTRATION RATE 130 mL/min/1.73m??? Normal >=60 [facility] Comment on above: Order Comment: Flor martell Type: BLOOD SPECIMEN Ordering Facility: [facility] Address: [address] [place] [address] Result Comment: Majo mated Glomerular Filtration Rate [...] GFR. Performed By: #### 2 4323-8, 3084-1, 77532-1 #### [facility] CLIA [id number] [address] [place] [address] [place] Glucose [Mass/Vol] 82 mg/dL Normal 74-99 [facility] Comment on above: Order Comment: Flor martell Type: BLOOD SPECIMEN Ordering Facility: [facility] Address: [address] [place] [address] Result Comment: The [place] Diabetes [employer] (ADA) provides guidance for cutoff [...] Standards of Medical Care in Diabetes 2016, [place] [employer]. Diabetes Care. 2016.39(Suppl 1). Performed By: #### 2 4323-8, 3084-1, 50551-1 #### [facility] CLIA [id number] 1 [place] [address] [place] Potassium [Moles/Vol] 3.9 mmol/L Normal 3.7-5.1 [facility] Comment on above: Order Comment: Speci men Type: BLOOD SPECIMEN Ordering Facility: [facility] Address: [address] [address] Performed By: #### 2 4323-8, 3084-1, 84322-3 #### [facility] CLIA [id number] [address] [place] Protein [Mass/Vol] 5.0 g/dL Low 6.3-8.0 [facility] Comment on above: Order Comment: Speci men Type: BLOOD SPECIMEN Ordering Facility: [facility] Address: [address] [address] Performed By: #### 2 4323-8, 3083-1, 65351-2 #### [facility] CLIA [id number] [address] [place] Sodium [Moles/Vol] 137 mmol/L Normal 136-144 [facility] Comment on above: Order Comment: Speci men Type: BLOOD SPECIMEN Ordering Facility: [facility] Address: [address] [address] Performed By: #### 2 4323-8, 3083-1, 48908-5 #### [facility] CLIA [id number] [address] [place] Urea nitrogen [Mass/Vol] 8 mg/dL Normal 7-21 [facility] Comment on above: Order Comment: Speci men Type: BLOOD SPECIMEN Ordering Facility: [facility] Address: [address] [address] Performed By: #### 2 4323-8, 4-1, 61757-2 #### [facility] CLIA [id number] [address] [place] Albumin [Mass/Vol] 3.0 g/dL Low 3.9-4.9 [facility] Comment on above: Order Comment: Speci men Type: BLOOD SPECIMEN Ordering Facility: [facility] Address: [address] [address] Performed By: #### 2 4323-8, 3084-1, 25045-1 #### [facility] CLIA [id number] [address] OF [facility] ALP [Catalytic activity/Vol] 77 U/L Normal 34-123 [facility] Comment on above: Order Comment: Speci men Type: BLOOD SPECIMEN Ordering Facility: [facility] Address: [address] [place] [address] Performed By: #### 2 4323-8, 3084-1, 15656-9 #### [facility] CLIA [id number] [address] [place] With P-5'-P [Catalytic activity/Vol] 196 U/L High 7-38 [facility] Comment on above: Order Comment: Speci men Type: BLOOD SPECIMEN Ordering Facility: [facility] Address: [address] [place] [address] Performed By: #### 2 4323-8, 3083-1, 05506-6 #### [facility] CLIA [id number] [address] Anion gap [Moles/Vol] 10 mmol/L Normal 9-18 [facility] Comment on above: Order Comment: Speci men Type: BLOOD SPECIMEN Ordering Facility: [facility] Address: [address] [place] [address] Performed By: #### 2 4323-8, 4-1, 50277-3 #### [facility] CLIA [id number] [address] AST With P-5'-P [Catalytic activity/Vol] 163 U/L High 13-35 [facility] Comment on above: Order Comment: Speci men Type: BLOOD SPECIMEN Ordering Facility: [facility] Address: [address] [place] [address] Performed By: #### 2 4323-8, 3084-1, 07019-4 #### [facility] CLIA [id number] [address] Bilirubin [Mass/Vol] 1.3 mg/dL Normal 0.2-1.3 [facility] Comment on above: Order Comment: Speci men Type: BLOOD SPECIMEN Ordering Facility: [facility] Address: [address] [place] [address] Performed By: #### 2 4323-8, 4-1, 47021-4 #### [facility] CLIA [id number] [address] [place] Calcium [Mass/Vol] 7.9 mg/dL Low 8.5-10.2 [facility] Comment on above: Order Comment: Speci men Type: BLOOD SPECIMEN Ordering Facility: [facility] Address: [address] [place] [address] Performed By: #### 2 4323-8, 3083-1, 68252-1 #### [facility] CLIA [id number] [address] [place] Chloride [Moles/Vol] 104 mmol/L Normal 97-105 [facility] Comment on above: Order Comment: Speci men Type: BLOOD SPECIMEN Ordering Facility: [facility] Address: [address] [place] [address] Performed By: #### 2 4323-8, 1, 20557-6 #### [facility] CLIA [id number] [address] [place] CO2 [Moles/Vol] 24 mmol/L Normal 22-30 [facility] Comment on above: Order Comment: Speci men Type: BLOOD SPECIMEN Ordering Facility: [facility] Address: [address] [place] [address] Performed By: #### 2 4323-8, 3083-1, 70077-6 #### [facility] CLIA [id number] 1 [place] [address] [place] Creatinine [Mass/Vol] 0.58 mg/dL Normal 0.58-0.96 [facility] Comment on above: Order Comment: Speci men Type: BLOOD SPECIMEN Ordering Facility: [facility] Address: [address] [place] [address] Performed By: #### 2 4323-8, 3084-1, 11144-7 #### [facility] CLIA [id number] [address] ESTIMATED GLOMERULAR FILTRATION RATE 132 mL/min/1.73m??? Normal >=60 [facility] Comment on above: Order Comment: Flor martell Type: BLOOD SPECIMEN Ordering Facility: [facility] Address: [address] [place] [address] Result Comment: Majo mated Glomerular Filtration Rate [...] GFR. Performed By: #### 2 4323-8, 3084-1, 84099-7 #### [facility] CLIA [id number] [address] [place] [address] [place] Glucose [Mass/Vol] 82 mg/dL Normal 74-99 [facility] Comment on above: Order Comment: Flor martell Type: BLOOD SPECIMEN Ordering Facility: [facility] Address: [address] [place] [address] Result Comment: The P[place]de[place] Diabetes Association (ADA) provides guidance for cutoff [...] Standards of Medical Care in Diabetes 2016, [employer] Diabetes Association. Diabetes Care. 2016.39(Suppl 1). Performed By: #### 2 4323-8, 3084-1, 93458-7 #### [facility] CLIA [id number] 1 [place] [address] [place] Potassium [Moles/Vol] 3.9 mmol/L Normal 3.7-5.1 [facility] Comment on above: Order Comment: Speci men Type: BLOOD SPECIMEN Ordering Facility: [facility] Address: [address] [place] [address] Performed By: #### 2 4323-8, 3084-1, 75031-4 #### [facility] CLIA [id number] 1 [place] [address] [place] Protein [Mass/Vol] 5.1 g/dL Low 6.3-8.0 [facility] Comment on above: Order Comment: Speci men Type: BLOOD SPECIMEN Ordering Facility: [facility] Address: [address] [place] [address] Performed By: #### 2 4323-8, 4-1, 11104-5 #### [facility] CLIA [id number] [address] [place] Sodium [Moles/Vol] 138 mmol/L Normal 136-144 [facility] Comment on above: Order Comment: Speci men Type: BLOOD SPECIMEN Ordering Facility: [facility] Address: [address] [place] [address] Performed By: #### 2 4323-8, 4-1, 68480-2 #### [facility] CLIA [id number] [address] [place] Urea nitrogen [Mass/Vol] 8 mg/dL Normal 7-21 [facility] Comment on above: Order Comment: Speci men Type: BLOOD SPECIMEN Ordering Facility: [facility] Address: [address] [place] [address] Performed By: #### 2 4323-8, 4-1, 85361-3 #### [facility] CLIA [id number] 1 [place] [address] [place] Albumin [Mass/Vol] 2.9 g/dL Low 3.9-4.9 [facility] Comment on above: Order Comment: Speci men Type: BLOOD SPECIMEN Ordering Facility: [facility] Address: [address] [address] Performed By: #### 2 4323-8, 3084-1, 17545-2 #### [facility] CLIA [id number] [address] OF [facility] ALP [Catalytic activity/Vol] 72 U/L Normal 34-123 [facility] Comment on above: Order Comment: Speci men Type: BLOOD SPECIMEN Ordering Facility: [facility] Address: [address] [address] Performed By: #### 2 4323-8, 4-1, 26868-8 #### [facility] CLIA [id number] [address] STATES OF [facility] ALT With P-5'-P [Catalytic activity/Vol] 211 U/L High 7-38 [facility] Comment on above: Order Comment: Speci men Type: BLOOD SPECIMEN Ordering Facility: [facility] Address: [address] [address] Performed By: #### 2 4323-8, 3083-1, 25170-0 #### [facility] CLIA [id number] [address] Anion gap [Moles/Vol] 10 mmol/L Normal 9-18 [facility] Comment on above: Order Comment: Speci men Type: BLOOD SPECIMEN Ordering Facility: [facility] Address: [address] [address] Performed By: #### 2 4323-8, 3084-1, 48053-1 #### [facility] CLIA [id number] [address] OF [facility] AST With P-5'-P [Catalytic activity/Vol] 201 U/L High 13-35 [facility] Comment on above: Order Comment: Speci men Type: BLOOD SPECIMEN Ordering Facility: [facility] Address: [address] [address] Performed By: #### 2 4323-8, 3083-1, 15071-4 #### [facility] CLIA [id number] 1 [place] [address] [place] Bilirubin [Mass/Vol] 1.3 mg/dL Normal 0.2-1.3 [facility] Comment on above: Order Comment: Speci men Type: BLOOD SPECIMEN Ordering Facility: [facility] Address: [address] [place] [address] Performed By: #### 2 4323-8, 3083-, 91208-1 #### [facility] CLIA [id number] [address] [place] Calcium [Mass/Vol] 7.7 mg/dL Low 8.5-10.2 [facility] Comment on above: Order Comment: Speci men Type: BLOOD SPECIMEN Ordering Facility: [facility] Address: [address] [place] [address] Performed By: #### 2 432-8, 3083-08, 86491-4 #### [facility] CLIA [id number] [address] [place] Chloride [Moles/Vol] 104 mmol/L Normal 97-105 [facility] Comment on above: Order Comment: Speci men Type: BLOOD SPECIMEN Ordering Facility: [facility] Address: [address] [place] [address] Performed By: #### 2 4323-8, 3083-08, 80852-3 #### [facility] CLIA [id number] 1 [place] [address] [place] CO2 [Moles/Vol] 23 mmol/L Normal 22-30 [facility] Comment on above: Order Comment: Speci men Type: BLOOD SPECIMEN Ordering Facility: [facility] Address: [address] [place] [address] Performed By: #### 2 4323-8, 3083-1, 94524-6 #### [facility] CLIA [id number] [address] [place] Creatinine [Mass/Vol] 0.54 mg/dL Low 0.58-0.96 [facility] Comment on above: Order Comment: Flor martell Type: BLOOD SPECIMEN Ordering Facility: [facility] Address: [address] [place] [id number] Performed By: #### 2 4323-8, 3084-1, 48949-1 #### [facility] CLIA [id number] [address] [place] ESTIMATED GLOMERULAR FILTRATION RATE 135 mL/min/1.73m??? Normal >=60 [facility] Comment on above: Order Comment: Flor martell Type: BLOOD SPECIMEN Ordering Facility: [facility] Address: [address] [place] [address] Result Comment: Majo mated Glomerular Filtration Rate [...] GFR. Performed By: #### 2 4323-8, 3084-1, 04441-2 #### [facility] CLIA [id number] [address] [place] Glucose [Mass/Vol] 82 mg/dL Normal 74-99 [facility] Comment on above: Order Comment: Flor martell Type: BLOOD SPECIMEN Ordering Facility: [facility] Address: [address] [place] [address] Result Comment: The P[place]de[place] Diabetes Association (ADA) provides guidance for cutoff [...] Standards of Medical Care in Diabetes 2016, [employer] Diabetes Association. Diabetes Care. 2016.39(Suppl 1). Performed By: #### 2 4323-8, 3084-1, 81211-9 #### [facility] CLIA [id number] 1 [place] [address] [place] Potassium [Moles/Vol] 4.0 mmol/L Normal 3.7-5.1 [facility] Comment on above: Order Comment: Speci men Type: BLOOD SPECIMEN Ordering Facility: [facility] Address: [address] [address] Performed By: #### 2 4323-8, 3084-1, 44942-0 #### [facility] CLIA [id number] [address] [place] Protein [Mass/Vol] 5.2 g/dL Low 6.3-8.0 [facility] Comment on above: Order Comment: Speci men Type: BLOOD SPECIMEN Ordering Facility: [facility] Address: [address] [address] Performed By: #### 2 4323-8, 3083-1, 85689-8 #### [facility] CLIA [id number] [address] [place] Sodium [Moles/Vol] 137 mmol/L Normal 136-144 [facility] Comment on above: Order Comment: Speci men Type: BLOOD SPECIMEN Ordering Facility: [facility] Address: [address] [address] Performed By: #### 2 4323-8, 3083-1, 26959-7 #### [facility] CLIA [id number] 1 [place] [address] [place] Urea nitrogen [Mass/Vol] 9 mg/dL Normal 7-21 [facility] Comment on above: Order Comment: Speci men Type: BLOOD SPECIMEN Ordering Facility: [facility] Address: [address] [address] Performed By: #### 2 4323-8, 4-1, 61300-2 #### [facility] CLIA [id number] [address] [place] Albumin [Mass/Vol] 2.6 g/dL Low 3.9-4.9 [facility] Comment on above: Order Comment: Speci men Type: BLOOD SPECIMEN Ordering Facility: [facility] Address: [address] [place] [address] Performed By: #### 5 8410-2 #### [facility] CLIA [id number] [address] [place] ALP [Catalytic activity/Vol] 72 U/L Normal 34-123 [facility] Comment on above: Order Comment: Speci men Type: BLOOD SPECIMEN Ordering Facility: [facility] Address: [address] [place] [address] Performed By: #### 5 8410-2 #### [facility] CLIA [id number] [address] ALT With P-5'-P [Catalytic activity/Vol] 204 U/L High 7-38 [facility] Comment on above: Order Comment: Speci men Type: BLOOD SPECIMEN Ordering Facility: [facility] Address: [address] [place] [address] Performed By: #### 5 8410-2 #### [facility] CLIA [id number] [address] Anion gap [Moles/Vol] 10 mmol/L Normal 9-18 [facility] Comment on above: Order Comment: Speci men Type: BLOOD SPECIMEN Ordering Facility: [facility] Address: [address] [place] [address] Performed By: #### 5 8410-2 #### [facility] CLIA [id number] [address] [place] AST With P-5'-P [Catalytic activity/Vol] 263 U/L High 13-35 [facility] Comment on above: Order Comment: Speci men Type: BLOOD SPECIMEN Ordering Facility: [facility] Address: [address] [place] [address] Performed By: #### 5 8410-2 #### [facility] CLIA [id number] [address] [place] Bilirubin [Mass/Vol] 0.7 mg/dL Normal 0.2-1.3 [facility] Comment on above: Order Comment: Speci men Type: BLOOD SPECIMEN Ordering Facility: [facility] Address: [address] [place] [address] Performed By: #### 5 8410-2 #### [facility] CLIA [id number] [address] [place] Calcium [Mass/Vol] 7.0 mg/dL Low 8.5-10.2 [facility] Comment on above: Order Comment: Speci men Type: BLOOD SPECIMEN Ordering Facility: [facility] Address: [address] [place] [address] Performed By: #### 5 8410-2 #### [facility] CLIA [id number] 1 [place] [address] [place] Chloride [Moles/Vol] 103 mmol/L Normal 97-105 [facility] Comment on above: Order Comment: Speci men Type: BLOOD SPECIMEN Ordering Facility: [facility] Address: [address] [place] [address] Performed By: #### 5 8410-2 #### [facility] CLIA [id number] [address] [place] CO2 [Moles/Vol] 24 mmol/L Normal 22-30 [facility] Comment on above: Order Comment: Speci men Type: BLOOD SPECIMEN Ordering Facility: [facility] Address: [address] [place] [address] Performed By: #### 5 8410-2 #### [facility] CLIA [id number] 1 [place] [address] [place] Creatinine [Mass/Vol] 0.56 mg/dL Low 0.58-0.96 [facility] Comment on above: Order Comment: Speci men Type: BLOOD SPECIMEN Ordering Facility: [facility] Address: [address] [place] [address] Performed By: #### 5 8410-2 #### [facility] CLIA [id number] [address] ESTIMATED GLOMERULAR FILTRATION RATE 133 mL/min/1.73m??? Normal >=60 [facility] Comment on above: Order Comment: Flor martell Type: BLOOD SPECIMEN Ordering Facility: [facility] Address: [address] [place] [address] Result Comment: Majo mated Glomerular Filtration Rate [...] GFR. Performed By: #### 5 8410-2 #### [facility] CLIA [id number] [address] [place] [address] [place] Glucose [Mass/Vol] 100 mg/dL High 74-99 [facility] Comment on above: Order Comment: Flor martell Type: BLOOD SPECIMEN Ordering Facility: [facility] Address: [address] [place] [address] Result Comment: The Pryde[place] Diabetes Association (ADA) provides guidance for cutoff [...] Standards of Medical Care in Diabetes 2016, [employer] Diabetes Association. Diabetes Care. 2016.39(Suppl 1). Performed By: #### 5 8410-2 #### [facility] CLIA [id number] [address] Potassium [Moles/Vol] 3.8 mmol/L Normal 3.7-5.1 [facility] Comment on above: Order Comment: Speci men Type: BLOOD SPECIMEN Ordering Facility: [facility] Address: [address] [address] Performed By: #### 5 8410-2 #### [facility] CLIA [id number] [address] [place] Protein [Mass/Vol] 4.9 g/dL Low 6.3-8.0 [facility] Comment on above: Order Comment: Speci men Type: BLOOD SPECIMEN Ordering Facility: [facility] Address: [address] [place] [address] Performed By: #### 5 8410-2 #### [facility] CLIA [id number] [address] STATES [facility] Sodium [Moles/Vol] 137 mmol/L Normal 136-144 [facility] Comment on above: Order Comment: Speci men Type: BLOOD SPECIMEN Ordering Facility: [facility] Address: [address] [place] [address] Performed By: #### 5 8410-2 #### [facility] CLIA [id number] [address] [place] Urea nitrogen [Mass/Vol] 9 mg/dL Normal 7-21 [facility] Comment on above: Order Comment: Speci men Type: BLOOD SPECIMEN Ordering Facility: [facility] Address: [address] [address] Performed By: #### 5 8410-2 #### [facility] CLIA [id number] [address] [place] Albumin [Mass/Vol] 3.0 g/dL Low 3.9-4.9 [facility] Comment on above: Order Comment: Speci men Type: BLOOD SPECIMEN Ordering Facility: [facility] Address: [address] [address] Performed By: #### 5 8410-2 #### [facility] CLIA [id number] [address] ALP [Catalytic activity/Vol] 73 U/L Normal 34-123 [facility] Comment on above: Order Comment: Speci men Type: BLOOD SPECIMEN Ordering Facility: [facility] Address: [address] [address] Performed By: #### 5 8410-2 #### [facility] CLIA [id number] [address] OF [facility] ALT With P-5'-P [Catalytic activity/Vol] 125 U/L High 7-38 [facility] Comment on above: Order Comment: Speci men Type: BLOOD SPECIMEN Ordering Facility: [facility] Address: [address] [place] [address] Performed By: #### 5 8410-2 #### [facility] CLIA [id number] [address] Anion gap [Moles/Vol] 10 mmol/L Normal 9-18 [facility] Comment on above: Order Comment: Speci men Type: BLOOD SPECIMEN Ordering Facility: [facility] Address: [address] [place] [address] Performed By: #### 5 8410-2 #### [facility] CLIA [id number] [address] AST With P-5'-P [Catalytic activity/Vol] 71 U/L High 13-35 [facility] Comment on above: Order Comment: Speci men Type: BLOOD SPECIMEN Ordering Facility: [facility] Address: [address] [address] Performed By: #### 5 8410-2 #### [facility] CLIA [id number] [address] Bilirubin [Mass/Vol] 0.4 mg/dL Normal 0.2-1.3 [facility] Comment on above: Order Comment: Speci men Type: BLOOD SPECIMEN Ordering Facility: [facility] Address: [address] [place] [address] Performed By: #### 5 8410-2 #### [facility] CLIA [id number] [address] [place] Calcium [Mass/Vol] 7.1 mg/dL Low 8.5-10.2 [facility] Comment on above: Order Comment: Speci men Type: BLOOD SPECIMEN Ordering Facility: [facility] Address: [address] [place] [address] Performed By: #### 5 8410-2 #### [facility] CLIA [id number] [address] [place] Chloride [Moles/Vol] 103 mmol/L Normal 97-105 [facility] Comment on above: Order Comment: Speci men Type: BLOOD SPECIMEN Ordering Facility: [facility] Address: [address] [place] [address] Performed By: #### 5 8410-2 #### [facility] CLIA [id number] [address] [place] CO2 [Moles/Vol] 24 mmol/L Normal 22-30 [facility] Comment on above: Order Comment: Speci men Type: BLOOD SPECIMEN Ordering Facility: [facility] Address: [address] [place] [address] Performed By: #### 5 8410-2 #### [facility] CLIA [id number] [address] [place] Creatinine [Mass/Vol] 0.58 mg/dL Normal 0.58-0.96 [facility] Comment on above: Order Comment: Speci men Type: BLOOD SPECIMEN Ordering Facility: [facility] Address: [address] [place] [address] Performed By: #### 5 8410-2 #### [facility] CLIA [id number] [address] [place] ESTIMATED GLOMERULAR FILTRATION RATE 132 mL/min/1.73m??? Normal >=60 [facility] Comment on above: Order Comment: Speci men Type: BLOOD SPECIMEN Ordering Facility: [facility] Address: [address] [place], [place] [id number] Result Comment: Majo mated Glomerular Filtration Rate [...] GFR. Performed By: #### 5 8410-2 #### [facility] CLIA [id number] 1 [place] [address] [place] Glucose [Mass/Vol] 106 mg/dL High 74-99 [facility] Comment on above: Order Comment: Flor martell Type: BLOOD SPECIMEN Ordering Facility: [facility] Address: [address] [place], [place] [phone] Result Comment: The Pryde[place] Diabetes Association (ADA) provides guidance for cutoff [...] Standards of Medical Care in Diabetes 2016, P[place] Diabetes Association. Diabetes Care. 2016.39(Suppl 1). Performed By: #### 5 8410-2 #### [facility] CLIA [id number] 1 [place] [address] [place] Potassium [Moles/Vol] 4.0 mmol/L Normal 3.7-5.1 [facility] Comment on above: Order Comment: Flor martell Type: BLOOD SPECIMEN Ordering Facility: [facility] Address: [address] [place], [place] [id number] Performed By: #### 5 8410-2 #### [facility] CLIA [id number] [address] [place] Protein [Mass/Vol] 5.3 g/dL Low 6.3-8.0 [facility] Comment on above: Order Comment: Speci men Type: BLOOD SPECIMEN Ordering Facility: [facility] Address: [address] [place] [address] Performed By: #### 5 8410-2 #### [facility] CLIA [id number] [address] [place] Sodium [Moles/Vol] 137 mmol/L Normal 136-144 [facility] Comment on above: Order Comment: Speci men Type: BLOOD SPECIMEN Ordering Facility: [facility] Address: [address] [place] [address] Performed By: #### 5 8410-2 #### [facility] CLIA [id number] [address] [place] Urea nitrogen [Mass/Vol] 8 mg/dL Normal 7-21 [facility] Comment on above: Order Comment: Speci men Type: BLOOD SPECIMEN Ordering Facility: [facility] Address: [address] [place] [address] Performed By: #### 5 8410-2 #### [facility] CLIA [id number] [address] [place] ANES POSTPROC EVALon 023 ANES POSTPROC EVAL HNO ID: [id number] Author: Pedro Pan APRN.HERB DOCTOR Service: Anesthesiology Author Type: Nurse Pain Management Nurse Practitioner Type: Anesthesia Postprocedure Evaluation Filed: 02/07/2023 5:30 AM Note Text: POST ANESTHESIA EVALUATION NOTE : 2000 Procedure Summary Date: 02/07/23 Room / Location: [place] [address] [facility] Anesthesia Start: 52 Anesthesia Stop: 243 Procedure: SECTION Diagnosis: (Maternal Medical Condition) Surgeons: Aerli Whitehead MD Responsible Provider: Mirta Lange MD Anesthesia Type: general ASA Status: 3 - Emergent Anesthesia Type: general Airway Type: ETT Last Vitals Vitals Value Taken Time BP 122/82 02/07/23 0516 Temp 02/07/23 0529 Pulse 79 02/07/23 0524 Resp 12 02/07/23 0454 SpO2 98 % 02/07/23 0524 Vitals shown include unvalidated device data. 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 I have reviewed the medical record and/or the pre-anesthesia evaluation, pertinent labs, and test results. This contains updated information obtained within 48 hours of Surgery/Procedure. SIGNATURE: Pedro Pan APRN.CRNA PATIENT NAME: Nestor Lopez DATE: February 07, 2023 TIME: 12:20 AM : 2000 Normal [facility] ANTIBODY ID PATIENTon 2022 ANTIBODY IDENTIFIED Passively acq Anti-D Normal [facility] Comment on above: Order Comment: Speci men Type: BLOOD SPECIMEN Ordering Facility: [facility] Address: [address] [place] [address] Performed By: #### 5 8410-2 #### [facility] CLIA [id number] [address] [place] Ammonia Plas-sCncon 02-08-20 23 Ammonia (P) [Moles/Vol] 15 umol/L Normal 11-51 [facility] Comment on above: Order Comment: Speci men Type: BLOOD SPECIMEN Ordering Facility: [facility] Address: [address] [place] [address] Performed By: #### 2 4323-8, 3084-1, 37339-8 #### [facility] CLIA [id number] 1 [place] [address] [place] Basic metabolic 2000 panelon 02-07-2023 Anion gap [Moles/Vol] 11 mmol/L Normal 9-18 [facility] Comment on above: Order Comment: Speci men Type: BLOOD SPECIMEN Ordering Facility: [facility] Address: [address] [place] [address] Performed By: #### 2 4323-8, 3084-1, 77992-4 #### [facility] CLIA [id number] [address] STATES OF [facility] Calcium [Mass/Vol] 7.1 mg/dL Low 8.5-10.2 [facility] Comment on above: Order Comment: Speci men Type: BLOOD SPECIMEN Ordering Facility: [facility] Address: [address] [place] [address] Performed By: #### 2 4323-8, 3084-1, 81164-9 #### [facility] CLIA [id number] [address] [place] Chloride [Moles/Vol] 102 mmol/L Normal 97-105 [facility] Comment on above: Order Comment: Speci men Type: BLOOD SPECIMEN Ordering Facility: [facility] Address: [address] [place] [address] Performed By: #### 2 4323-8, 3084-1, 46954-3 #### [facility] CLIA [id number] [address] OF [facility] CO2 [Moles/Vol] 21 mmol/L Low 22-30 [facility] Comment on above: Order Comment: Speci men Type: BLOOD SPECIMEN Ordering Facility: [facility] Address: [address] [place] [address] Performed By: #### 2 4323-8, 3084-1, 47104-0 #### [facility] CLIA [id number] [address] [place] [address] Creatinine [Mass/Vol] 0.49 mg/dL Low 0.58-0.96 [facility] Comment on above: Order Comment: Specbob men Type: BLOOD SPECIMEN Ordering Facility: [facility] Address: [address] [place] [address] Performed By: #### 2 4323-8, 3084-1, 38804-9 #### [facility] CLIA [id number] [address] [place] [address] ESTIMATED GLOMERULAR FILTRATION RATE 138 mL/min/1.73m??? Normal >=60 [facility] Comment on above: Order Comment: Speci men Type: BLOOD SPECIMEN Ordering Facility: [facility] Address: [address] [place] [address] Result Comment: Majo mated Glomerular Filtration Rate [...] GFR. Performed By: #### 2 4323-8, 3084-1, 98188-5 #### [facility] CLIA [id number] 1 [place] [address] [place] Glucose [Mass/Vol] 111 mg/dL High 74-99 [facility] Comment on above: Order Comment: Flor martell Type: BLOOD SPECIMEN Ordering Facility: [facility] Address: [address] [phone] Result Comment: The [place] Diabetes Association (ADA) provides guidance for cutoff [...] Standards of Medical Care in Diabetes 2016, [place] Diabetes Association. Diabetes Care. 2016.39(Suppl 1). Performed By: #### 2 4323-8, 3084-1, 81554-8 #### [facility] CLIA [id number] 1 [place] [address] [place] Potassium [Moles/Vol] 3.9 mmol/L Normal 3.7-5.1 [facility] Comment on above: Order Comment: Flor martell Type: BLOOD SPECIMEN Ordering Facility: [facility] Address: [address] [place] [address] Performed By: #### 2 4323-8, 3084-1, 74776-7 #### [facility] CLIA [id number] 1 [place] [address] [place] Sodium [Moles/Vol] 134 mmol/L Low 136-144 [facility] Comment on above: Order Comment: Flor martell Type: BLOOD SPECIMEN Ordering Facility: [facility] Address: [address] [phone] Performed By: #### 2 4323-8, 3084-1, 62359-1 #### [facility] CLIA [id number] [address] Urea nitrogen [Mass/Vol] 7 mg/dL Normal 7-21 [facility] Comment on above: Order Comment: Speci men Type: BLOOD SPECIMEN Ordering Facility: [facility] Address: [address] [place] [address] Performed By: #### 2 4323-8, 3084-1, 83706-4 #### [facility] CLIA [id number] [address] Bilirub Conj SerPl-mCncon Bilirubin.conjugated [Mass/Vol] 0.5 mg/dL High <0.2 [facility] Comment on above: Order Comment: Speci men Type: BLOOD SPECIMEN Ordering Facility: [facility] Address: [address] [address] Performed By: #### 2 4323-8, 3084-1, 14162-5 #### [facility] CLIA [id number] [address] CBC panel Auto (Bld)on 02-07 Erythrocyte distribution width (RBC) [Ratio] 14.4 % Normal 11.5-15.0 [facility] Comment on above: Order Comment: Speci men Type: BLOOD SPECIMEN Ordering Facility: [facility] Address: [address] [address] Performed By: #### 5 8410-2 #### [facility] CLIA [id number] [address] Hematocrit (Bld) [Volume fraction] 25.6 % Low 36.0-46.0 [facility] Comment on above: Order Comment: Speci men Type: BLOOD SPECIMEN Ordering Facility: [facility] Address: [address] [address] Performed By: #### 5 8410-2 #### [facility] CLIA [id number] [address] OF [facility] Hemoglobin (Bld) [Mass/Vol] 8.8 g/dL Low 11.5-15.5 [facility] Comment on above: Order Comment: Speci men Type: BLOOD SPECIMEN Ordering Facility: [facility] Address: [address] [place] [address] Performed By: #### 5 8410-2 #### [facility] CLIA [id number] [address] MCH (RBC) [Entitic mass] 27.5 pg Normal 26.0-34.0 [facility] Comment on above: Order Comment: Speci men Type: BLOOD SPECIMEN Ordering Facility: [facility] Address: [address] [place] [address] Performed By: #### 5 8410-2 #### [facility] CLIA [id number] [address] MCHC (RBC) [Mass/Vol] 34.4 g/dL Normal 30.5-36.0 [facility] Comment on above: Order Comment: Speci men Type: BLOOD SPECIMEN Ordering Facility: [facility] Address: [address] [place] [address] Performed By: #### 5 8410-2 #### [facility] CLIA [id number] [address] MCV (RBC) [Entitic vol] 80.0 fL Normal 80.0-100.0 [facility] Comment on above: Order Comment: Speci men Type: BLOOD SPECIMEN Ordering Facility: [facility] Address: [address] [place] [address] Performed By: #### 5 8410-2 #### [facility] CLIA [id number] [address] Nucleated RBC (Bld) [#/Vol] 10*3/uL Normal <0.01 [facility] Comment on above: Order Comment: Speci men Type: BLOOD SPECIMEN Ordering Facility: [facility] Address: [address] [address] Performed By: #### 5 8410-2 #### [facility] CLIA [id number] [address] Platelet mean volume (Bld) [Entitic vol] 11.3 fL Normal 9.0-12.7 [facility] Comment on above: Order Comment: Speci men Type: BLOOD SPECIMEN Ordering Facility: [facility] Address: [address] [address] Performed By: #### 5 8410-2 #### [facility] CLIA [id number] [address] Platelets (Bld) [#/Vol] 120 10*3/uL Low 150-400 [facility] Comment on above: Order Comment: Speci men Type: BLOOD SPECIMEN Ordering Facility: [facility] Address: [address] [place] [address] Result Comment: No c lot detected. Performed By: #### 5 8410-2 #### [facility] CLIA [id number] [address] RBC (Bld) [#/Vol] 3.20 10*6/uL Low 3.90-5.20 [facility] Comment on above: Order Comment: Speci men Type: BLOOD SPECIMEN Ordering Facility: [facility] Address: [address] [address] Performed By: #### 5 8410-2 #### [facility] CLIA [id number] [address] OF [facility] WBC (Bld) [#/Vol] 17.18 10*3/uL High 3.70-11.00 [facility] Comment on above: Order Comment: Speci men Type: BLOOD SPECIMEN Ordering Facility: [facility] Address: [address] [place] [address] Performed By: #### 5 8410-2 #### [facility] CLIA [id number] [address] Erythrocyte distribution width (RBC) [Ratio] 14.4 % Normal 11.5-15.0 [facility] Comment on above: Order Comment: Speci men Type: BLOOD SPECIMEN Ordering Facility: [facility] Address: [address] [place] [address] Performed By: #### 5 8410-2 #### [facility] CLIA [id number] [address] Hematocrit (Bld) [Volume fraction] 24.9 % Low 36.0-46.0 [facility] Comment on above: Order Comment: Speci men Type: BLOOD SPECIMEN Ordering Facility: [facility] Address: [address] [place] [address] Performed By: #### 5 8410-2 #### [facility] CLIA [id number] [address] Hemoglobin (Bld) [Mass/Vol] 8.5 g/dL Low 11.5-15.5 [facility] Comment on above: Order Comment: Speci men Type: BLOOD SPECIMEN Ordering Facility: [facility] Address: [address] [place] [address] Performed By: #### 5 8410-2 #### [facility] CLIA [id number] [address] MCH (RBC) [Entitic mass] 27.7 pg Normal 26.0-34.0 [facility] Comment on above: Order Comment: Speci men Type: BLOOD SPECIMEN Ordering Facility: [facility] Address: [address] [address] Performed By: #### 5 8410-2 #### [facility] CLIA [id number] [address] MCHC (RBC) [Mass/Vol] 34.1 g/dL Normal 30.5-36.0 [facility] Comment on above: Order Comment: Speci men Type: BLOOD SPECIMEN Ordering Facility: [facility] Address: [address] [place] [address] Performed By: #### 5 8410-2 #### [facility] CLIA [id number] [address] MCV (RBC) [Entitic vol] 81.1 fL Normal 80.0-100.0 [facility] Comment on above: Order Comment: Speci men Type: BLOOD SPECIMEN Ordering Facility: [facility] Address: [address] [place] [address] Performed By: #### 5 8410-2 #### [facility] CLIA [id number] [address] Nucleated RBC (Bld) [#/Vol] 10*3/uL Normal <0.01 [facility] Comment on above: Order Comment: Speci men Type: BLOOD SPECIMEN Ordering Facility: [facility] Address: [address] [place] [address] Performed By: #### 5 8410-2 #### [facility] CLIA [id number] [address] Platelet mean volume (Bld) [Entitic vol] 11.9 fL Normal 9.0-12.7 [facility] Comment on above: Order Comment: Speci men Type: BLOOD SPECIMEN Ordering Facility: [facility] Address: [address] [place] [address] Performed By: #### 5 8410-2 #### [facility] CLIA [id number] [address] Platelets (Bld) [#/Vol] 74 10*3/uL Low 150-400 A [facility] Comment on above: Order Comment: Speci men Type: BLOOD SPECIMEN Ordering Facility: [facility] Address: [address] [place] [address] Result Comment: Plat elet count confirmed by manual review of peripheral blood smear. No clot detected. Performed By: #### 5 8410-2 #### [facility] CLIA [id number] [address] RBC (Bld) [#/Vol] 3.07 10*6/uL Low 3.90-5.20 [facility] Comment on above: Order Comment: Speci men Type: BLOOD SPECIMEN Ordering Facility: [facility] Address: [address] [place] [address] Performed By: #### 5 8410-2 #### [facility] CLIA [id number] [address] STATES OF [facility] WBC (Bld) [#/Vol] 14.79 10*3/uL High 3.70-11.00 [facility] Comment on above: Order Comment: Speci men Type: BLOOD SPECIMEN Ordering Facility: [facility] Address: [address] [place] [address] Performed By: #### 5 8410-2 #### [facility] CLIA [id number] [address] [place] [address] [place] Erythrocyte distribution width (RBC) [Ratio] 14.4 % Normal 11.5-15.0 [facility] Comment on above: Order Comment: Speci men Type: BLOOD SPECIMEN Ordering Facility: [facility] Address: [address] [place] [address] Performed By: #### 2 4323-8, 3084-1, 14429-5 #### [facility] CLIA [id number] [address] [place] [address] [place] [facility] Hematocrit (Bld) [Volume fraction] 26.3 % Low 36.0-46.0 [facility] Comment on above: Order Comment: Speci men Type: BLOOD SPECIMEN Ordering Facility: [facility] Address: [address] [place] [address] Performed By: #### 2 4323-8, 3084-1, 44647-6 #### [facility] CLIA [id number] [address] OF [facility] Hemoglobin (Bld) [Mass/Vol] 8.7 g/dL Low 11.5-15.5 [facility] Comment on above: Order Comment: Speci men Type: BLOOD SPECIMEN Ordering Facility: [facility] Address: [address] [address] Performed By: #### 2 4323-8, 3084-1, 22789-5 #### [facility] CLIA [id number] [address] MCH (RBC) [Entitic mass] 27.2 pg Normal 26.0-34.0 [facility] Comment on above: Order Comment: Speci men Type: BLOOD SPECIMEN Ordering Facility: [facility] Address: [address] [address] Performed By: #### 2 4323-8, 4-1, 33661-2 #### [facility] CLIA [id number] [address] MCHC (RBC) [Mass/Vol] 33.1 g/dL Normal 30.5-36.0 [facility] Comment on above: Order Comment: Speci men Type: BLOOD SPECIMEN Ordering Facility: [facility] Address: [address] [place] [address] Performed By: #### 2 4323-8, 3083-1, 85096-6 #### [facility] CLIA [id number] [address] [place] [address] MCV (RBC) [Entitic vol] 82.2 fL Normal 80.0-100.0 [facility] Comment on above: Order Comment: Speci men Type: BLOOD SPECIMEN Ordering Facility: [facility] Address: [address] [address] Performed By: #### 2 4323-8, 3083-1, 09968-8 #### [facility] CLIA [id number] [address] Nucleated RBC (Bld) [#/Vol] 10*3/uL Normal <0.01 [facility] Comment on above: Order Comment: Speci men Type: BLOOD SPECIMEN Ordering Facility: [facility] Address: [address] [address] Performed By: #### 2 4323-8, 4-1, 18865-8 #### [facility] CLIA [id number] 1 [place] [address] [place] Platelet mean volume (Bld) [Entitic vol] 11.5 fL Normal 9.0-12.7 [facility] Comment on above: Order Comment: Speci men Type: BLOOD SPECIMEN Ordering Facility: [facility] Address: [address] [place] [address] Performed By: #### 2 4323-8, 3083-, 82270-7 #### [facility] CLIA [id number] [address] [place] Platelets (Bld) [#/Vol] 59 10*3/uL Low 150-400 [facility] Comment on above: Order Comment: Speci men Type: BLOOD SPECIMEN Ordering Facility: [facility] Address: [address] [place] [address] Result Comment: No c lot detected. Performed By: #### 2 4323-8, 3083-, 85370-9 #### [facility] CLIA [id number] [address] [place] [address] [place] RBC (Bld) [#/Vol] 3.20 10*6/uL Low 3.90-5.20 [facility] Comment on above: Order Comment: Speci men Type: BLOOD SPECIMEN Ordering Facility: [facility] Address: [address] [place] [address] Performed By: #### 2 4323-8, 3083-08, 39288-5 #### [facility] CLIA [id number] [address] [place] WBC (Bld) [#/Vol] 12.64 10*3/uL High 3.70-11.00 [facility] Comment on above: Order Comment: Speci men Type: BLOOD SPECIMEN Ordering Facility: [facility] Address: [address] [place] [address] Performed By: #### 2 4323-8, 3083-, 32589-4 #### [facility] CLIA [id number] [address] Erythrocyte distribution width (RBC) [Ratio] 14.4 % Normal 11.5-15.0 [facility] Comment on above: Order Comment: Speci men Type: BLOOD SPECIMEN Ordering Facility: [facility] Address: [address] [place] [address] Performed By: #### 5 8410-2 #### [facility] CLIA [id number] [address] Hematocrit (Bld) [Volume fraction] 30.5 % Low 36.0-46.0 [facility] Comment on above: Order Comment: Speci men Type: BLOOD SPECIMEN Ordering Facility: [facility] Address: [address] [place] [address] Performed By: #### 5 8410-2 #### [facility] CLIA [id number] [address] Hemoglobin (Bld) [Mass/Vol] 10.4 g/dL Low 11.5-15.5 [facility] Comment on above: Order Comment: Speci men Type: BLOOD SPECIMEN Ordering Facility: [facility] Address: [address] [place] [address] Performed By: #### 5 8410-2 #### [facility] CLIA [id number] [address] MCH (RBC) [Entitic mass] 27.4 pg Normal 26.0-34.0 [facility] Comment on above: Order Comment: Speci men Type: BLOOD SPECIMEN Ordering Facility: [facility] Address: [address] [place] [address] Performed By: #### 5 8410-2 #### [facility] CLIA [id number] [address] MCHC (RBC) [Mass/Vol] 34.1 g/dL Normal 30.5-36.0 [facility] Comment on above: Order Comment: Speci men Type: BLOOD SPECIMEN Ordering Facility: [facility] Address: [address] [address] Performed By: #### 5 8410-2 #### [facility] CLIA [id number] [address] MCV (RBC) [Entitic vol] 80.5 fL Normal 80.0-100.0 [facility] Comment on above: Order Comment: Speci men Type: BLOOD SPECIMEN Ordering Facility: [facility] Address: [address] [address] Performed By: #### 5 8410-2 #### [facility] CLIA [id number] [address] Nucleated RBC (Bld) [#/Vol] 10*3/uL Normal <0.01 [facility] Comment on above: Order Comment: Speci men Type: BLOOD SPECIMEN Ordering Facility: [facility] Address: [address] [place] [address] Performed By: #### 5 8410-2 #### [facility] CLIA [id number] [address] Platelet mean volume (Bld) [Entitic vol] 10.9 fL Normal 9.0-12.7 [facility] Comment on above: Order Comment: Speci men Type: BLOOD SPECIMEN Ordering Facility: [facility] Address: [address] [place] [address] Performed By: #### 5 8410-2 #### [facility] CLIA [id number] [address] Platelets (Bld) [#/Vol] 40 10*3/uL Low 150-400 A [facility] Comment on above: Order Comment: Speci men Type: BLOOD SPECIMEN Ordering Facility: [facility] Address: [address] [place] [address] Result Comment: No c lot detected. Performed By: #### 5 8410-2 #### [facility] CLIA [id number] [address] [place] RBC (Bld) [#/Vol] 3.79 10*6/uL Low 3.90-5.20 [facility] Comment on above: Order Comment: Flor martell Type: BLOOD SPECIMEN Ordering Facility: [facility] Address: [address] [place] [address] Performed By: #### 5 8410-2 #### [facility] CLIA [id number] [address] OF [facility] WBC (Bld) [#/Vol] 13.05 10*3/uL High 3.70-11.00 [facility] Comment on above: Order Comment: Flor martell Type: BLOOD SPECIMEN Ordering Facility: [facility] Address: [address] [phone] Performed By: #### 5 8410-2 #### [facility] CLIA [id number] [address] CONSULTon 02-07-2023 CONSULT HNO ID: [id number] Author: Kimberly Rueda MD Service: Obstetrics Author [...] We recommend follow up with primary care provider/portfolio analyst in 4-6 weeks to discuss ways to [...] method. Patient presented as a transfer from [facility] where she was found to have elevated liver enzymes and low platelets in the setting of a week of worsening abdominal pain. She received 2U of platelets and was delivered via low transverse section this AM under general anesthesia. [facility] was consulted for input on pain management, [...] by mo (more content not included)... Normal [facility] CONSULT HNO ID: [id number] Author: Jorge Elliott MD Service: Hospital Medicine Author Type: Resident Type: Consults Filed: 02/07/2023 9:16 AM Note Text: Attestation signed by Reji Del Rio MD at 02/07/2023 5:11 PM I saw and evaluated the patient. Discussed with the resident and agree with resident's findings and plan as documented in the resident's note. [facility] [place] PATIENT NAME: Nestor Lopez ADMITTED FOR: DATE: 02/06/2023 Subjective HPI Ms. Nestor Lopez is a 22 year old female with no significant PMH who was recently transferred from [facility] wherein she was found to have [...] HCT 2 (more content not included)... Normal [facility] CONSULT HNO ID: [id number] Author: Valentine Webster APRN.CNP Service: Neonatology Author Type: Nurse Practitioner Type: Consults Filed: 02/07/2023 12:23 AM Note Text: NEONATOLOGY CONSULT SERVICE DATE: 02/07/2023 Admission Date: 02/06/2023 SERVICE TIME: 2330 Date of : 2000 Age: [age] year old Sex: female Primary Care Physician: No primary care provider on file. Consulting Neonatology MICHELLE: Valentine Webster APRN.PARTY CHIEF Subjective Consultation for this evaluation was requested [...] delays: Yes Discussed need for evaluation by Freight Sales Broker for ROP: Yes Discussed risk for hearing [...] Verbal consent obtained: Yes MISC. Name if Delivery Coordinator, if known: Unknown, please contact patient's primary care physician Possible need for transfer to outside hospital: Yes Possible need for subspecialty evaluation: N/A Additional discussion: N/A Impression/Recommenda tions Assessment: This is a 29 weeks mother who is presenting with suspected HELLP syndrome with potential for imminent delivery. Plan: NICU to be present at delivery if decision made after labs resulted. Call [facility] with questions. Dr. oFx notified of potential delivery - discussed consult with Dr. Whitehead before and after discussion with family. Physician [id number]-[id number] total time, including discussion: 40 minutes, more than 50 % of time devoted to coordination of care and/or counseling. SIGNATURE: Valentine Webster APRN.LOG[place] PATIENT NAME: Nestor Lopez DATE: February 07, 2023 TIME: 12:17 AM Normal [facility] Calcium.ionized [Moles/Vol]o n 02-07-2023 Calcium.ionized (BldV) [Mass/Vol] 1.01 mmol/L Low 1.08-1.30 [facility] Comment on above: Order Comment: Flor martell Type: BLOOD SPECIMEN Ordering Facility: [facility] Address: [address] [place] [address] Performed By: #### 2 4323-8, 3084-1, 51097-1 #### [facility] CLIA [id number] [address] [place] [address] [place] [facility] Calcium.ionized adjusted to pH 7.4 (Bld) [Moles/Vol] 0.98 mmol/L Low 1.08-1.30 [facility] Comment on above: Order Comment: Flor martell Type: BLOOD SPECIMEN Ordering Facility: [facility] Address: [address] [place] [address] Performed By: #### 2 4323-8, 3084-1, 59504-3 #### [facility] CLIA [id number] [address] Comprehensive metabolic 2000 panelon 02-07-2023 Albumin [Mass/Vol] 3.1 g/dL Low 3.9-4.9 [facility] Comment on above: Order Comment: Speci men Type: BLOOD SPECIMEN Ordering Facility: [facility] Address: [address] [place] [address] Performed By: #### 5 8410-2 #### [facility] CLIA [id number] [address] ALP [Catalytic activity/Vol] 74 U/L Normal 34-123 [facility] Comment on above: Order Comment: Speci men Type: BLOOD SPECIMEN Ordering Facility: [facility] Address: [address] [place] [address] Performed By: #### 5 8410-2 #### [facility] CLIA [id number] [address] ALT With P-5'-P [Catalytic activity/Vol] 131 U/L High 7-38 [facility] Comment on above: Order Comment: Speci men Type: BLOOD SPECIMEN Ordering Facility: [facility] Address: [address] [place] [address] Performed By: #### 5 8410-2 #### [facility] CLIA [id number] [address] Anion gap [Moles/Vol] 13 mmol/L Normal 9-18 [facility] Comment on above: Order Comment: Speci men Type: BLOOD SPECIMEN Ordering Facility: [facility] Address: [address] [place] [address] Performed By: #### 5 8410-2 #### [facility] CLIA [id number] [address] AST With P-5'-P [Catalytic activity/Vol] 74 U/L High 13-35 [facility] Comment on above: Order Comment: Speci men Type: BLOOD SPECIMEN Ordering Facility: [facility] Address: [address] [place] [address] Performed By: #### 5 8410-2 #### [facility] CLIA [id number] [address] [place] Bilirubin [Mass/Vol] 0.5 mg/dL Normal 0.2-1.3 [facility] Comment on above: Order Comment: Speci men Type: BLOOD SPECIMEN Ordering Facility: [facility] Address: [address] [place] [address] Performed By: #### 5 8410-2 #### [facility] CLIA [id number] [address] [place] Calcium [Mass/Vol] 7.2 mg/dL Low 8.5-10.2 [facility] Comment on above: Order Comment: Speci men Type: BLOOD SPECIMEN Ordering Facility: [facility] Address: [address] [place] [address] Performed By: #### 5 8410-2 #### [facility] CLIA [id number] [address] [place] Chloride [Moles/Vol] 103 mmol/L Normal 97-105 [facility] Comment on above: Order Comment: Speci men Type: BLOOD SPECIMEN Ordering Facility: [facility] Address: [address] [place] [address] Performed By: #### 5 8410-2 #### [facility] CLIA [id number] 1 [place] [address] [place] CO2 [Moles/Vol] 21 mmol/L Low 22-30 [facility] Comment on above: Order Comment: Speci men Type: BLOOD SPECIMEN Ordering Facility: [facility] Address: [address] [place] [address] Performed By: #### 5 8410-2 #### [facility] CLIA [id number] [address] [place] Creatinine [Mass/Vol] 0.55 mg/dL Low 0.58-0.96 [facility] Comment on above: Order Comment: Flor martell Type: BLOOD SPECIMEN Ordering Facility: [facility] Address: [address] [place] [id number] Performed By: #### 5 8410-2 #### [facility] CLIA [id number] 1 [place] [address] [place] ESTIMATED GLOMERULAR FILTRATION RATE 134 mL/min/1.73m??? Normal >=60 [facility] Comment on above: Order Comment: Flor martell Type: BLOOD SPECIMEN Ordering Facility: [facility] Address: [address] [place] [address] Result Comment: Majo mated Glomerular Filtration Rate [...] GFR. Performed By: #### 5 8410-2 #### [facility] CLIA [id number] 1 [place] [address] [place] Glucose [Mass/Vol] 102 mg/dL High 74-99 [facility] Comment on above: Order Comment: Flor martell Type: BLOOD SPECIMEN Ordering Facility: [facility] Address: [address] [place] [address] Result Comment: The Pryde[place] Diabetes Association (ADA) provides guidance for cutoff [...] Standards of Medical Care in Diabetes 2016, [place] Diabetes Association. Diabetes Care. 2016.39(Suppl 1). Performed By: #### 5 8410-2 #### [facility] CLIA [id number] [address] [place] Potassium [Moles/Vol] 4.2 mmol/L Normal 3.7-5.1 [facility] Comment on above: Order Comment: Speci men Type: BLOOD SPECIMEN Ordering Facility: [facility] Address: [address] [place] [address] Performed By: #### 5 8410-2 #### [facility] CLIA [id number] [address] [place] Protein [Mass/Vol] 5.5 g/dL Low 6.3-8.0 [facility] Comment on above: Order Comment: Speci men Type: BLOOD SPECIMEN Ordering Facility: [facility] Address: [address] [place] [address] Performed By: #### 5 8410-2 #### [facility] CLIA [id number] [address] [place] Sodium [Moles/Vol] 137 mmol/L Normal 136-144 [facility] Comment on above: Order Comment: Speci men Type: BLOOD SPECIMEN Ordering Facility: [facility] Address: [address] [place] [address] Performed By: #### 5 8410-2 #### [facility] CLIA [id number] [address] [place] Urea nitrogen [Mass/Vol] 7 mg/dL Normal 7-21 [facility] Comment on above: Order Comment: Speci men Type: BLOOD SPECIMEN Ordering Facility: [facility] Address: [address] [place] [address] Performed By: #### 5 8410-2 #### [facility] CLIA [id number] [address] [place] Albumin [Mass/Vol] 2.7 g/dL Low 3.9-4.9 [facility] Comment on above: Order Comment: Speci men Type: BLOOD SPECIMEN Ordering Facility: [facility] Address: [address] [place] [address] Performed By: #### 2 4323-8, 3084-1, 15347-9 #### [facility] CLIA [id number] [address] ALP [Catalytic activity/Vol] 63 U/L Normal 34-123 [facility] Comment on above: Order Comment: Speci men Type: BLOOD SPECIMEN Ordering Facility: [facility] Address: [address] [place] [address] Performed By: #### 2 4323-8, 3084-1, 85120-8 #### [facility] CLIA [id number] [address] ALT With P-5'-P [Catalytic activity/Vol] 129 U/L High 7-38 [facility] Comment on above: Order Comment: Speci men Type: BLOOD SPECIMEN Ordering Facility: [facility] Address: [address] [place] [address] Performed By: #### 2 4323-8, 3084-1, 98411-3 #### [facility] CLIA [id number] [address] Anion gap [Moles/Vol] 13 mmol/L Normal 9-18 [facility] Comment on above: Order Comment: Speci men Type: BLOOD SPECIMEN Ordering Facility: [facility] Address: [address] [place] [address] Performed By: #### 2 4323-8, 3084-1, 92591-0 #### [facility] CLIA [id number] [address] AST With P-5'-P [Catalytic activity/Vol] 81 U/L High 13-35 [facility] Comment on above: Order Comment: Speci men Type: BLOOD SPECIMEN Ordering Facility: [facility] Address: [address] [place] [address] Performed By: #### 2 4323-8, 3084-1, 70609-5 #### [facility] CLIA [id number] [address] [place] Bilirubin [Mass/Vol] 0.7 mg/dL Normal 0.2-1.3 [facility] Comment on above: Order Comment: Speci men Type: BLOOD SPECIMEN Ordering Facility: [facility] Address: [address] [place] [address] Performed By: #### 2 4323-8, 4-1, 32467-9 #### [facility] CLIA [id number] 1 [place] [address] [place] Calcium [Mass/Vol] 6.9 mg/dL Low 8.5-10.2 [facility] Comment on above: Order Comment: Speci men Type: BLOOD SPECIMEN Ordering Facility: [facility] Address: [address] [place] [address] Performed By: #### 2 4323-8, 3083-, 78193-1 #### [facility] CLIA [id number] [address] [place] Chloride [Moles/Vol] 101 mmol/L Normal 97-105 [facility] Comment on above: Order Comment: Speci men Type: BLOOD SPECIMEN Ordering Facility: [facility] Address: [address] [place] [address] Performed By: #### 2 4323-8, 3083-1, 93129-4 #### [facility] CLIA [id number] 1 [place] [address] [place] CO2 [Moles/Vol] 20 mmol/L Low 22-30 [facility] Comment on above: Order Comment: Speci men Type: BLOOD SPECIMEN Ordering Facility: [facility] Address: [address] [place] [address] Performed By: #### 2 4323-8, 3083-1, 58678-8 #### [facility] CLIA [id number] [address] [place] Creatinine [Mass/Vol] 0.49 mg/dL Low 0.58-0.96 [facility] Comment on above: Order Comment: Flor martell Type: BLOOD SPECIMEN Ordering Facility: [facility] Address: [place] [facility] [place] [phone] Performed By: #### 2 4323-8, 3084-1, 29553-8 #### [facility] CLIA [id number] [address] [place] ESTIMATED GLOMERULAR FILTRATION RATE 138 mL/min/1.73m??? Normal >=60 [facility] Comment on above: Order Comment: Flor jayshree Type: BLOOD SPECIMEN Ordering Facility: [facility] Address: [place] [address] Result Comment: Majo mated Glomerular Filtration [...] GFR. Performed By: #### 2 4323-8, 3084-1, 89294-8 #### [facility] CLIA [id number] 1 [place] [address] [place] Glucose [Mass/Vol] 110 mg/dL High 74-99 [facility] Comment on above: Order Comment: Flor martell Type: BLOOD SPECIMEN Ordering Facility: [facility] Address: [place] Result Comment: The Pryde[place] Diabetes Association (ADA) provides guidance for cutoff [...] Standards of Medical Care in Diabetes 2016, [place] Diabetes Association. Diabetes Care. 2016.39(Suppl 1). Performed By: #### 2 4323-8, 3084-1, 37463-5 #### [facility] CLIA [id number] [address] [place] Potassium [Moles/Vol] 3.8 mmol/L Normal 3.7-5.1 [facility] Comment on above: Order Comment: Speci men Type: BLOOD SPECIMEN Ordering Facility: [facility] Address: [address] [place] [address] Performed By: #### 2 4323-8, 3084-1, 71167-7 #### [facility] CLIA [id number] 1 [place] [address] [place] Protein [Mass/Vol] 4.7 g/dL Low 6.3-8.0 [facility] Comment on above: Order Comment: Speci men Type: BLOOD SPECIMEN Ordering Facility: [facility] Address: [address] [place] [address] Performed By: #### 2 4323-8, 3084-1, 62235-5 #### [facility] CLIA [id number] [address] [place] Sodium [Moles/Vol] 134 mmol/L Low 136-144 [facility] Comment on above: Order Comment: Speci men Type: BLOOD SPECIMEN Ordering Facility: [facility] Address: [address] [place] [address] Performed By: #### 2 4323-8, 4-1, 38342-3 #### [facility] CLIA [id number] 1 [place] [address] [place] Urea nitrogen [Mass/Vol] 6 mg/dL Low 7-21 [facility] Comment on above: Order Comment: Speci men Type: BLOOD SPECIMEN Ordering Facility: [facility] Address: [address] [place] [address] Performed By: #### 2 4323-8, 3084-1, 51000-4 #### [facility] CLIA [id number] [address] Albumin [Mass/Vol] 2.7 g/dL Low 3.9-4.9 [facility] Comment on above: Order Comment: Speci men Type: BLOOD SPECIMEN Ordering Facility: [facility] Address: [address] [place] [address] Performed By: #### 2 4323-8, 3084-1, 78251-3 #### [facility] CLIA [id number] [address] OF [facility] ALP [Catalytic activity/Vol] 64 U/L Normal 34-123 [facility] Comment on above: Order Comment: Speci men Type: BLOOD SPECIMEN Ordering Facility: [facility] Address: [address] [place] [address] Performed By: #### 2 4323-8, 3084-1, 99489-3 #### [facility] CLIA [id number] [address] ALT With P-5'-P [Catalytic activity/Vol] 144 U/L High 7-38 [facility] Comment on above: Order Comment: Speci men Type: BLOOD SPECIMEN Ordering Facility: [facility] Address: [address] [place] [address] Performed By: #### 2 4323-8, 3084-1, 18088-9 #### [facility] CLIA [id number] [address] Anion gap [Moles/Vol] 11 mmol/L Normal 9-18 [facility] Comment on above: Order Comment: Speci men Type: BLOOD SPECIMEN Ordering Facility: [facility] Address: [address] [place] [address] Performed By: #### 2 4323-8, 3084-1, 49684-2 #### [facility] CLIA [id number] [address] [place] AST With P-5'-P [Catalytic activity/Vol] 113 U/L High 13-35 [facility] Comment on above: Order Comment: Speci men Type: BLOOD SPECIMEN Ordering Facility: [facility] Address: [address] [address] Performed By: #### 2 4323-8, 3083-1, 27834-7 #### [facility] CLIA [id number] 1 [place] [address] [place] Bilirubin [Mass/Vol] 1.0 mg/dL Normal 0.2-1.3 [facility] Comment on above: Order Comment: Speci men Type: BLOOD SPECIMEN Ordering Facility: [facility] Address: [address] [address] Performed By: #### 2 4323-8, 3083-1, 63288-7 #### [facility] CLIA [id number] 1 [place] [address] [place] Calcium [Mass/Vol] 6.5 mg/dL Low 8.5-10.2 [facility] Comment on above: Order Comment: Speci men Type: BLOOD SPECIMEN Ordering Facility: [facility] Address: [address] [address] Performed By: #### 2 4323-8, 3083-1, 37781-7 #### [facility] CLIA [id number] 1 [place] [address] [place] Chloride [Moles/Vol] 90 mmol/L Low 97-105 [facility] Comment on above: Order Comment: Speci men Type: BLOOD SPECIMEN Ordering Facility: [facility] Address: [address] [place] [address] Performed By: #### 2 4323-8, 3083-1, 42510-6 #### [facility] CLIA [id number] 1 [place] [address] [place] CO2 [Moles/Vol] 19 mmol/L Low 22-30 [facility] Comment on above: Order Comment: Speci men Type: BLOOD SPECIMEN Ordering Facility: [facility] Address: [address] [place] [address] Performed By: #### 2 4323-8, 3084-1, 59156-6 #### [facility] CLIA [id number] [address] STATES OF [facility] Creatinine [Mass/Vol] 0.51 mg/dL Low 0.58-0.96 [facility] Comment on above: Order Comment: Flor martell Type: BLOOD SPECIMEN Ordering Facility: [facility] Address: [address] [place] [address] Performed By: #### 2 4323-8, 3084-1, 21925-9 #### [facility] CLIA [id number] [address] ESTIMATED GLOMERULAR FILTRATION RATE 136 mL/min/1.73m??? Normal >=60 [facility] Comment on above: Order Comment: Flor martell Type: BLOOD SPECIMEN Ordering Facility: [facility] Address: [address] [place] [address] Result Comment: Majo mated Glomerular Filtration Rate [...] GFR. Performed By: #### 2 4323-8, 3084-1, 04403-0 #### [facility] CLIA [id number] [address] Glucose [Mass/Vol] 102 mg/dL High 74-99 [facility] Comment on above: Order Comment: Flor jayshree Type: BLOOD SPECIMEN Ordering Facility: [facility] Address: [address] [address] Result Comment: The Prydein[place] Diabetes Association (ADA) provides guidance for cutoff [...] Standards of Medical Care in Diabetes 2016, [place] Diabetes Association. Diabetes Care. 2016.39(Suppl 1). Performed By: #### 2 4323-8, 3084-1, 74925-8 #### [facility] CLIA [id number] 1 [place] [address] [place] Potassium [Moles/Vol] 3.6 mmol/L Low 3.7-5.1 [facility] Comment on above: Order Comment: Speci men Type: BLOOD SPECIMEN Ordering Facility: [facility] Address: [address] [place] [address] Performed By: #### 2 4323-8, 3084-1, 25187-7 #### [facility] CLIA [id number] 1 [place] [address] [place] Protein [Mass/Vol] 4.8 g/dL Low 6.3-8.0 [facility] Comment on above: Order Comment: Speci men Type: BLOOD SPECIMEN Ordering Facility: [facility] Address: [address] [place] [address] Performed By: #### 2 4323-8, 3084-1, 92786-4 #### [facility] CLIA [id number] [address] [place] Sodium [Moles/Vol] 120 mmol/L Low 136-144 [facility] Comment on above: Order Comment: Speci men Type: BLOOD SPECIMEN Ordering Facility: [facility] Address: [address] [address] Performed By: #### 2 4323-8, 3084-1, 33240-2 #### [facility] CLIA [id number] 1 [place] [address] [place] Urea nitrogen [Mass/Vol] 7 mg/dL Normal 7-21 [facility] Comment on above: Order Comment: Speci men Type: BLOOD SPECIMEN Ordering Facility: [facility] Address: [address] [address] Performed By: #### 2 4323-8, 3084-1, 31062-5 #### [facility] CLIA [id number] [address] Albumin [Mass/Vol] 3.1 g/dL Low 3.9-4.9 [facility] Comment on above: Order Comment: Speci men Type: BLOOD SPECIMEN Ordering Facility: [facility] Address: [address] [address] Performed By: #### 2 4323-8, 3084-1, 75676-9 #### [facility] CLIA [id number] [address] OF [facility] ALP [Catalytic activity/Vol] 78 U/L Normal 34-123 [facility] Comment on above: Order Comment: Speci men Type: BLOOD SPECIMEN Ordering Facility: [facility] Address: [address] [place] [address] Performed By: #### 2 4323-8, 3083-1, 22507-7 #### [facility] CLIA [id number] [address] OF [facility] ALT With P-5'-P [Catalytic activity/Vol] 205 U/L High 7-38 [facility] Comment on above: Order Comment: Speci men Type: BLOOD SPECIMEN Ordering Facility: [facility] Address: [address] [place] [address] Performed By: #### 2 4323-8, 3083-1, 20897-9 #### [facility] CLIA [id number] [address] Anion gap [Moles/Vol] 15 mmol/L Normal 9-18 [facility] Comment on above: Order Comment: Speci men Type: BLOOD SPECIMEN Ordering Facility: [facility] Address: [address] [place] [address] Performed By: #### 2 4323-8, 4-1, 15915-6 #### [facility] CLIA [id number] 1 [place] [address] [place] AST With P-5'-P [Catalytic activity/Vol] 221 U/L High 13-35 [facility] Comment on above: Order Comment: Speci men Type: BLOOD SPECIMEN Ordering Facility: [facility] Address: [address] [place] [address] Performed By: #### 2 4323-8, 3084-1, 09861-8 #### [facility] CLIA [id number] [address] [place] [address] [place] Bilirubin [Mass/Vol] 2.1 mg/dL High 0.2-1.3 [facility] Comment on above: Order Comment: Speci men Type: BLOOD SPECIMEN Ordering Facility: [facility] Address: [address] [place] [address] Performed By: #### 2 4323-8, 4-1, 53892-2 #### [facility] CLIA [id number] [address] [place] Calcium [Mass/Vol] 8.4 mg/dL Low 8.5-10.2 [facility] Comment on above: Order Comment: Speci men Type: BLOOD SPECIMEN Ordering Facility: [facility] Address: [address] [place] [address] Performed By: #### 2 4323-8, 4-1, 35312-3 #### [facility] CLIA [id number] [address] [place] [address] [place] Chloride [Moles/Vol] 100 mmol/L Normal 97-105 [facility] Comment on above: Order Comment: Speci men Type: BLOOD SPECIMEN Ordering Facility: [facility] Address: [address] [place] [address] Performed By: #### 2 4323-8, 3084-1, 90571-2 #### [facility] CLIA [id number] [address] [place] [address] [place] CO2 [Moles/Vol] 18 mmol/L Low 22-30 [facility] Comment on above: Order Comment: Speci men Type: BLOOD SPECIMEN Ordering Facility: [facility] Address: [address] [address] Performed By: #### 2 4323-8, 3084-1, 47110-2 #### [facility] CLIA [id number] [address] [place] Creatinine [Mass/Vol] 0.56 mg/dL Low 0.58-0.96 [facility] Comment on above: Order Comment: Speci men Type: BLOOD SPECIMEN Ordering Facility: [facility] Address: [address] [address] Performed By: #### 2 4323-8, 308-1, 43663-6 #### [facility] CLIA [id number] [address] STATES OF [facility] ESTIMATED GLOMERULAR FILTRATION RATE 133 mL/min/1.73m??? Normal >=60 [facility] Comment on above: Order Comment: Speci men Type: BLOOD SPECIMEN Ordering Facility: [facility] Address: [address] [place] [address] Result Comment: Majo mated Glomerular Filtration Rate [...] GFR. Performed By: #### 2 4323-8, 3084-1, 44036-3 #### [facility] CLIA [id number] 1 [place] [address] [place] Glucose [Mass/Vol] 73 mg/dL Low 74-99 [facility] Comment on above: Order Comment: Speci men Type: BLOOD SPECIMEN Ordering Facility: [facility] Address: [address] [place] [address] Result Comment: The [place] Diabetes Association (ADA) provides guidance for cutoff [...] Standards of Medical Care in Diabetes 2016, [place] Diabetes [employer]. Diabetes Care. 2016.39(Suppl 1). Performed By: #### 2 4323-8, 3084-1, 21759-1 #### [facility] CLIA [id number] 1 [place] [address] [place] Potassium [Moles/Vol] 3.4 mmol/L Low 3.7-5.1 [facility] Comment on above: Order Comment: Flor martell Type: BLOOD SPECIMEN Ordering Facility: [facility] Address: [address] [place] [address] Performed By: #### 2 4323-8, 3084-, 19000-9 #### [facility] CLIA [id number] 1 [place] [address] [place] Protein [Mass/Vol] 5.6 g/dL Low 6.3-8.0 [facility] Comment on above: Order Comment: Flor martell Type: BLOOD SPECIMEN Ordering Facility: [facility] Address: [address] [place] [address] Performed By: #### 2 4323-8, 3084-1, 79767-9 #### [facility] CLIA [id number] 1 [place] [address] [place] Sodium [Moles/Vol] 133 mmol/L Low 136-144 [facility] Comment on above: Order Comment: Miriami jayshree Type: BLOOD SPECIMEN Ordering Facility: [facility] Address: [address] [address] Performed By: #### 2 4323-8, 3084-1, 18818-3 #### [facility] CLIA [id number] [address] [place] Urea nitrogen [Mass/Vol] 8 mg/dL Normal 7-21 [facility] Comment on above: Order Comment: Flor martell Type: BLOOD SPECIMEN Ordering Facility: [facility] Address: [address] [place] [address] Performed By: #### 2 4323-8, 3084-1, 52341-6 #### [facility] CLIA [id number] [address] OF [facility] Creatinine Unsp time (U) [Ma ss/Vol]on 02-07-2023 Creatinine (U) [Mass/Vol] 70.9 mg/dL Normal 42.2-237.9 [facility] Comment on above: Order Comment: Flor martell Type: BLOOD SPECIMEN Ordering Facility: [facility] Address: [address] [place] [address] Performed By: #### 2 4323-8, 3084-1, 90816-7 #### [facility] CLIA [id number] [address] [place] Fibrinogen PPP-mCncon 2022 Fibrinogen Coag (PPP) [Mass/Vol] 449 mg/dL High 200-400 [facility] Comment on above: Order Comment: Flor martell Type: BLOOD SPECIMEN Ordering Facility: [facility] Address: [address] [place] [address] Performed By: #### 2 4323-8, 3084-1, 83561-2 #### [facility] CLIA [id number] [address] [place] HISTORY PHYSICALon 3 HISTORY PHYSICAL HNO ID: [id number] Author: Yarely Sherwood MD Service: Obstetrics Author [...] reason for arrival: CHIEF COMPLAINT: Transfer from [place] HISTORY OF THE PRESENT ILLNESS: The patient is a 22 year old female, , who is at 29w1d with an JAX of 04/24/2023, by Ultrasound dating method. Patient is here as a transfer from [facility], where she was found to have [...] : 145/moderate/+accels/ no decels Cat 1, reactive Klein: q4 min ULTRASOUND: US findings: Head position: [...] units) Date/Time (more content not included)... Normal [facility] HISTORY PHYSICAL HNO ID: [id number] Author: Yarely Sherwood MD Service: Obstetrics Author Type: Resident Type: HANDP Filed: 02/07/2023 2:58 AM Note Text: Attestation signed by Areli Whitehead MD at 02/08/2023 9:50 AM Attending Note I personally saw and examined the patient. I reviewed the resident's note. I agree with the resident's assessment and plan unless otherwise noted. Transfer accepted by [facility], Dr. Bauer for presumed HELLP syndrome. Plan for delivery via for which [facility] was consulted. Patient typed and crossed for 2 units of whole blood and 2 of platelets. Signature: Areli Whitehead MD Date: 02/08/2023 Time: 9:49 AM OBSTETRICS HISTORY AND PHYSICAL SERVICE DATE: February 07, 2023 SERVICE TIME: 12:21 AM Subjective Patient's stated reason for arrival: CHIEF COMPLAINT: Transfer from [place] HISTORY OF THE PRESENT ILLNESS: The patient is a 22 year old female, , who is at 29w1d with an JAX of 04/24/2023, by Ultrasound dating method. Patient is here as a transfer from [facility], where she was found to have [...] : 145/moderate/+accels/ no decels Cat 1, reactive Klein: q4 min ULTRASOUND: US findings: Head position: [...] SARS-CoV-2 (Ag (more content not included)... Normal [facility] OPERATIVE NOon 02-07-2023 OPERATIVE NO HNO ID: [id number] Author: Yarely Sherwood MD Service: Obstetrics Author [...] Whitehead MD OB OPERATIVE/PROCEDURE REPORT LOG ID: [id number] Surgery/Procedure Date: 02/07/2023 Incision/Procedure Start Time: 1:07 AM Incision Close/Procedure End Time: 2:34 AM Surgeon(s)/Procedural ist(s) and Wall Worker(s): Surgeon(s) and Role: * Areli Whitehead MD [...] old female at 29w1d who presented to [facility] Estimated Date of Delivery: 04/24/23 as a transfer of care from [facility] with presumed HELLP syndrome. She presented to [facility] with abdominal pain, was found to have severe thrombocytopenia and transaminitis, and was life flighted to [facility]. Her course was complicated by HELLP syndrome, . The patient was GBSunknown. Following discussion with [facility], the decision was made to proceed to delivery due to HELLP syndrome. Due to the patient's lab values and remote nature from delivery, the decision was made to proceed with a delivery. Postop Diagnosis: HELLP syndrome Procedures and Anesthesia: Procedure(s) and Anesthesia Type: * SECTION Information for the patient's : John, Girl Nestor Curtis [[id number]] Type: , Low Transverse Operative Findings: Weight: [...] along with (more content not included)... Normal [facility] Osmolality SerPlon 3 Osmolality [Osmolality] 278 mosm/kg Normal 275-300 [facility] Comment on above: Order Comment: Speci men Type: BLOOD SPECIMEN Ordering Facility: [facility] Address: [address] [address] Performed By: #### 2 4323-8, 3084-1, 97080-8 #### [facility] CLIA [id number] [address] [place] Osmolality Uron 02-07-2023 Osmolality (U) [Osmolality] 646 mosm/kg Normal 50-1200 [facility] Comment on above: Order Comment: Speci men Type: BLOOD SPECIMEN Ordering Facility: [facility] Address: [address] [address] Performed By: #### 2 4323-8, 3084-1, 25706-0 #### [facility] CLIA [id number] [address] [place] POST-DELIVERY RH IGGon 02-07 ABO A Normal [facility] Comment on above: Order Comment: Speci men Type: BLOOD SPECIMEN Ordering Facility: [facility] Address: [address] [address] Performed By: #### 5 8410-2 #### [facility] CLIA [id number] [address] SCREEN Negative Normal [facility] Comment on above: Order Comment: Flor martell Type: BLOOD SPECIMEN Ordering Facility: [facility] Address: [address] [place] [address] Result Comment: Kit Lot Number and Expiration Date: Lot #: [id number] exp. 02-17-23 Performed By: #### 5 8410-2 #### [facility] CLIA [id number] [address] KB REFLEX No Normal [facility] Comment on above: Order Comment: Flor martell Type: BLOOD SPECIMEN Ordering Facility: [facility] Address: [address] [place] [address] Performed By: #### 5 8410-2 #### [facility] CLIA [id number] [address] Rh Nom (Bld) Negative Normal [facility] Comment on above: Order Comment: Flor martell Type: BLOOD SPECIMEN Ordering Facility: [facility] Address: [address] [place] [address] Performed By: #### 5 8410-2 #### [facility] CLIA [id number] [address] PT panel Coag (PPP)on 2022 INR Coag (PPP) [Relative time] {INR} Low 0.9-1.3 [facility] Comment on above: Order Comment: Specbob martell Type: BLOOD SPECIMEN Ordering Facility: [facility] Address: [address] [place] [address] Result Comment: Susan min K Antagonist (VKA) Therapeutic Range: INR 2 to 3 (Target INR of 2.5) Note: For patients treated with VKA drugs, such as warfarin, the [place] [employer] 2012 Guideline recommends [...] Chest 2012, 141:7S-47S Nereida RA, et al. [facility] 2017, 70: 252-289 Performed By: #### 2 4323-8, 3084-1, 50965-5 #### [facility] CLIA [id number] [address] [place] PT Coag (PPP) [Time] 9.5 s Low 9.7-13.0 [facility] Comment on above: Order Comment: Flor martell Type: BLOOD SPECIMEN Ordering Facility: [facility] Address: [address] [place] [address] Performed By: #### 2 4323-8, 308-1, 43317-4 #### [facility] CLIA [id number] [address] Prot/Creat Uron 02-07-2023 Protein/Creatinine (U) [Mass ratio] 0.32 mg/mg High <0.15 [facility] Comment on above: Order Comment: Flor martell Type: BLOOD SPECIMEN Ordering Facility: [facility] Address: [address] [place] [address] Result Comment: Adul t Proteinuria Categories: <0.15 mg/mg is considered normal to mildly increased 0.15 - 0.50 mg/mg is considered moderately increased >0.50 mg/mg is considered severely increased KDIGO. (2013). KDIGO 2012 Clinical Practice Guideline for the Evaluation and Management of Chronic Kidney Disease. Official Journal of the International Society of Nephrology, 3(1), 1-150. Performed By: #### 2 4323-8, 3084-1, 34210-6 #### [facility] CLIA [id number] [address] Protein/Creatinine (U) [Mass ratio]on 02-07-2023 Creatinine (U) [Mass/Vol] 116.5 mg/dL Normal 42.2-237.9 [facility] Comment on above: Order Comment: Speci men Type: BLOOD SPECIMEN Ordering Facility: [facility] Address: [address] [place] [address] Performed By: #### 2 4323-8, 3084-1, 35444-8 #### [facility] CLIA [id number] [address] STATES OF [facility] Protein (U) [Mass/Vol] 37 mg/dL High 0-20 [facility] Comment on above: Order Comment: Speci men Type: BLOOD SPECIMEN Ordering Facility: [facility] Address: [address] [place] [address] Performed By: #### 2 4323-8, 3084-1, 44830-7 #### [facility] CLIA [id number] [address] [place] Sodium ?Tm Ur-sCncon 023 Sodium Unsp time (U) [Moles/Vol] 157 mmol/L Normal 14-216 [facility] Comment on above: Order Comment: Speci men Type: BLOOD SPECIMEN Ordering Facility: [facility] Address: [address] [place] [address] Performed By: #### 2 4323-8, 3084-1, 78627-9 #### [facility] CLIA [id number] [address] OF [facility] TYPE + SCREEN PRENATALon ABO A Normal [facility] Comment on above: Order Comment: Speci men Type: BLOOD SPECIMEN Ordering Facility: [facility] Address: [address] [place] [address] Performed By: #### 5 8410-2 #### [facility] CLIA [id number] [address] OF [facility] HISTORICAL AB SCR STATUS Negative Normal [facility] Comment on above: Order Comment: Speci men Type: BLOOD SPECIMEN Ordering Facility: [facility] Address: [address] [place] [address] Performed By: #### 5 8410-2 #### [facility] CLIA [id number] [address] Rh Nom (Bld) Negative Normal [facility] Comment on above: Order Comment: Speci men Type: BLOOD SPECIMEN Ordering Facility: [facility] Address: [address] [place] [address] Performed By: #### 5 8410-2 #### [facility] CLIA [id number] [address] TYPE AND SCREEN EXPIRATION 02/09/2023 23:59 Normal [facility] Comment on above: Order Comment: Speci men Type: BLOOD SPECIMEN Ordering Facility: [facility] Address: [address] [place] [address] Performed By: #### 5 8410-2 #### [facility] CLIA [id number] [address] URIC ACID RANDOM URon 2022 Urate (U) [Mass/Vol] 8.5 mg/dL Low 10.0-90.0 [facility] Comment on above: Order Comment: Speci men Type: URINE SPECIMEN Ordering Facility: [facility] Address: [address] [place] [address] Performed By: #### U URICR #### [facility] CLIA [id number] [address] [place] [address] [place] Urate SerPl-mCncon 3 Urate [Mass/Vol] 5.9 mg/dL Normal 2.5-6.6 [facility] Comment on above: Order Comment: Speci men Type: BLOOD SPECIMEN Ordering Facility: [facility] Address: [address] [place] [address] Performed By: #### 2 4323-8, 3084-1, 51579-2 #### [facility] CLIA [id number] [address] [place] aPTT PPPon 02-07-2023 aPTT Coag (PPP) [Time] 32.7 s High 23.0-32.4 [facility] Comment on above: Order Comment: Speci men Type: BLOOD SPECIMEN Ordering Facility: [facility] Address: [place] [address] Performed By: #### 2 4323-8, 3084-1, 41997-5 #### [facility] CLIA [id number] [address] [place] [address] [facility] Absolute lymphocyte countOrd ered By: Mary Arredondo on 02-06-2023 Lymphocytes Auto (Unsp spec) [#/Vol] 1.42 10*3/uL 0.83-4.51 [facility] Basophil percentageOrdered B y: Mary Arredondo on 02-06-2023 Amylase [Catalytic activity/Vol] 35 U/L 25-115 [facility] Basophils/100 WBC (Bld) 0.3 % 0-1 [facility] Bilirubin [Mass/Vol] 2.00 mg/dL 0.20-1.00 [facility] Comment on above: For patients on eltr ombopag therapy, use of Dimension [place] TBIL is not recommended. Chloride [Moles/Vol] 107 mmol/L 98-107 [facility] Eosinophils/100 WBC (Bld) 1.8 % 0-5 [facility] Glucose [Mass/Vol] 71 mg/dL 74-106 [facility] Neutrophils (Bld) [#/Vol] 8.6 10*3/uL 2.0-7.7 [facility] Neutrophils/100 WBC (Bld) 77.9 % 47-70 [facility] Potassium [Moles/Vol] 3.4 mmol/L 3.5-5.1 [facility] Protein [Mass/Vol] 6.0 g/dL 6.4-8.2 [facility] Sodium [Moles/Vol] 137 mmol/L 136-145 [facility] WBC (Bld) [#/Vol] 11.1 10*3/uL 4.4-11.0 [facility] Blood erythrocytes count (nu mber/volume)Ordered By: Mary Arredondo on 02-06-2023 RBC (Bld) [#/Vol] 4.00 10*6/uL 4.2-5.4 [facility] Blood hemoglobin measurement (mass/volume)Ordered By: Mary Arredondo on 02-06-2023 Hemoglobin (Bld) [Mass/Vol] 11.0 g/dL 12.0-15.0 [facility] Blood lymphocytes/100 leukoc ytesOrdered By: Mary Arredondo on 02-06-2023 Lymphocytes/100 WBC (Bld) 12.8 % 19-41 [facility] Blood manual differential co mment interpretation (narrative result)Ordered By: Mary Arredondo on 02-06-2023 Manual differential comment Junito (Bld) [Interp] SCANNED [facility] Comment on above: THROMBOCYTOPENIA NOT ED Blood monocytes/100 leukocyt esOrdered By: Mary Arredondo on 02-06-2023 Monocytes/100 WBC (Bld) 6.2 % 0-10 [facility] Blood platelet mean volumeOr dered By: Mary Arredondo on 02-06-2023 Platelet mean volume (Bld) [Entitic vol] 11.8 fL 6.2-12.0 [facility] Determination of erythrocyte mean corpuscular volume (MCV)Ordered By: Mary Arredondo on 02-06-2023 MCV (RBC) [Entitic vol] 83.0 fL 81-99 [facility] Hematocrit Auto (Bld) [Volum e fraction]Ordered By: Mary Arredondo on 02-06-2023 Hematocrit (Bld) [Volume fraction] 33.2 % 37-47 [facility] INR in Blood by Coagulation assayOrdered By: Mary Arredondo on 02-06-2023 INR Coag (Bld) [Relative time] 1.2 {INR} [facility] Laboratory - Chemistry and C hemistry - challengeOrdered By: Mary Arredondo on 02-06-2023 ALP [Catalytic activity/Vol] 81 U/L 45-117 [facility] ALT [Catalytic activity/Vol] 233 U/L 13-56 [facility] CO2 [Moles/Vol] 23.0 mmol/L 21.0-32.0 [facility] Globulin (S) [Mass/Vol] 3.6 g/dL 2.2-4.2 [facility] Lipase [Catalytic activity/Vol] 19 U/L 13-75 [facility] Comment on above: Please note:LIPASE r evised reference range effective 22. New Lipase methodology. Expected to produce lower values than the previous assay method. NEW Reference Range: 13 - 75 U/L Urea nitrogen/Creatinine [Mass ratio] 17.2 mg/mg 10-20 [facility] Laboratory - CoagulationOrde red By: Mary Arredondo on 02-06-2023 aPTT Coag (Bld) [Time] 40.3 s 24.1-36.2 [facility] PT Coag (PPP) [Time] 15.0 s 11.7-14.9 [facility] - Hematology and Cell countsOrdered By: Mary Arredondo on 02-06-2023 Erythrocyte distribution width (RBC) [Entitic vol] 40.9 fL 35.1-43.9 [facility] Erythrocyte distribution width (RBC) [Ratio] 14.0 % 11.6-14.6 [facility] Immature granulocytes/100 WBC (Bld) 1.000 % 0.0-0.9 [facility] Comment on above: IG% - Immature Granu locytes (promyelocytes, myelocytes and metamyelocytes) > 1% indicates that a LEFT SHIFT is Present. MCH (RBC) [Entitic mass] 27.5 pg 27.0-32.0 [facility] Nucleated RBC/100 WBC (Bld) [Ratio] 0 % 0-5 [facility] MCHC Auto (RBC) [Mass/Vol]Or dered By: Mary Arredondo on 02-06-2023 MCHC (RBC) [Mass/Vol] 33.1 g/dL 32-36 [facility] No Panel InformationOrdered By: Mary Arredondo on 02-06-2023 Fibrinogen 395 mg/dl 203-444 [facility] Estimated Creatinine Clearance Calc 143.63 ml/min [facility] Estimated GFR (MDRD) Amer 167 mL/min >60 [facility] Comment on above: GFR Calc Estimated GFR (MDRD) Non-Af Amer 138 mL/min >60 [facility] Comment on above: Non- GFR Calc Platelets bldOrdered By: Abdirahman Arredondo on 02-06-2023 Platelets (Bld) [#/Vol] 36 10*3/uL 150-450 [facility] Comment on above: CRITICAL VALUE VERIF IED. CALLED TO [id number] Uyen Fernando.RESULTS READ BACK BY SAME . Review by pathologistOrdered By: Mary Arredondo on 02-06-2023 Pathologist review Junito (Unsp spec) [Interp] May foll [facility] Serum or plasma albumin emilie urement (mass/volume)Ordered By: Mary Arredondo on 02-06-2023 Albumin [Mass/Vol] 2.4 g/dL 3.2-5.0 [facility] Serum or plasma albumin/glob ulin mass ratioOrdered By: Mary Arredondo on 02-06-2023 Albumin/Globulin [Mass ratio] 0.7 {ratio} 0.9-2.4 [facility] Serum or plasma calcium emilie urement (mass/volume)Ordered By: Mary Arredondo on 02-06-2023 Calcium [Mass/Vol] 8.6 mg/dL 8.5-10.1 [facility] Serum or plasma creatinine m easurement (mass/volume)Ordered By: Mary Arredondo on 02-06-2023 Creatinine [Mass/Vol] 0.58 mg/dL 0.55-1.02 [facility] Comment on above: The validity of the calculated GFR & GFRAA in patients over 70 years has not been determined. Clinical correlation is essential. Serum or plasma urea nitroge n measurement (mass/volume)Ordered By: Mary Arredondo on 02-06-2023 Urea nitrogen [Mass/Vol] 10 mg/dL 7-18 [facility] Thin prep Papanicolaou smear with manual screeningOrdered By: Mary Arredondo on 02-06-2023 Thin prep Papanicolaou smear with manual screening 224 U/L 15-37 [facility] Thin prep Papanicolaou smear with manual screening 7 5-15 [facility] URINE OB DIP B/Oon 3 Glucose Ql (U) Negative Neg mg/dL [facility] Protein.monoclonal (U) [Mass/Vol] trace Neg mg/dL [facility] Urine creatinine measurement (mass/volume)Ordered By: Mary Arredondo on 02-06-2023 Creatinine (U) [Mass/Vol] 230.00 mg/dL NO RANGE EST. [facility] Urine protein measurement (m ass/volume)Ordered By: Mary Arredondo on 02-06-2023 Protein (U) [Mass/Vol] 71.3 mg/dL 0.0-11.8 [facility] Urine protein/creatinine mas s ratioOrdered By: Mary Arredondo on 02-06-2023 Protein/Creatinine (U) [Mass ratio] 310 mg/g CRE 0-200 [facility] Bilirubin Test strip Ql (U)O rdered By: Terra Herrera on 02-04-2023 Bilirubin Ql (U) Negative Negative [facility] Culture, urineOrdered By: Enio Herrera on 02-04-2023 Bacteria identified Cx Nom (U) Positive [facility] Ketones Test strip Ql (U)Ord ered By: Terra Herrera on 02-04-2023 Ketones Ql (U) Negative Negative [facility] Nitrite Test strip Ql (U)Ord ered By: Terra Herrera on 02-04-2023 Nitrite Ql (U) Negative Negative [facility] Protein Test strip Ql (U)Ord ered By: Terra Herrera on 02-04-2023 Protein Ql (U) Negative Negative [facility] Urine blood detectionOrdered By: Terra Herrera on 02-04-2023 RBC Ql (U) Negative Negative [facility] Urine clarityOrdered By: Ninfa Herrera on 02-04-2023 Clarity (U) Sl. Cloudy Clear [facility] Urine color determinationOrd ered By: Terra Herrera on 02-04-2023 Color (U) Yellow Yellow [facility] Urine glucose detectionOrder ed By: Terra Herrera on 02-04-2023 Glucose Ql (U) Normal mg/dl Normal [facility] Urine leukocyte esterase det ection by dipstickOrdered By: Terra Herrera on 02-04-2023 Leukocyte esterase Test strip Ql (U) Negative Negative [facility] Urine pHOrdered By: Terra Herrera on 02-04-2023 pH (U) 7.0 [pH] 5.0 - 8.0 [facility] Urine specific gravity measu rementOrdered By: Terra Herrera on 02-04-2023 Specific gravity (U) [Rel density] 1.010 1.002-1.030 [facility] Urobilinogen Auto test strip Ql (U)Ordered By: Terra Herrera on 02-04-2023 Urobilinogen Ql (U) Normal mg/dl Normal [facility] URINE OB DIP B/Oon 3 Glucose Ql (U) Negative Neg mg/dL [facility] Protein.monoclonal (U) [Mass/Vol] Negative Neg mg/dL [facility] OBSTETRIC ULTRASOUND WHIon 0 12-06-2022 [facility] URINE OB DIP B/Oon 3 Glucose Ql (U) Negative Neg mg/dL [facility] Protein.monoclonal (U) [Mass/Vol] Negative Neg mg/dL [facility] URINE OB DIP B/Oon 3 Glucose Ql (U) Negative Neg mg/dL [facility] Protein.monoclonal (U) [Mass/Vol] Negative Neg mg/dL [facility] CBC panel Auto (Bld)on 10-06 Erythrocyte distribution width (RBC) [Ratio] 12.6 % 11.5 - 15.0 % [facility] Hematocrit (Bld) [Volume fraction] 38.8 % 36.0 - 46.0 % [facility] Hemoglobin (Bld) [Mass/Vol] 13.4 g/dL 11.5 - 15.5 g/dL [facility] MCH (RBC) [Entitic mass] 27.0 pg 26. 0 - 34.0 pg [facility] MCHC (RBC) [Mass/Vol] 34.5 g/dL 30.5 - 36.0 g/dL [facility] MCV (RBC) [Entitic vol] 78.2 fL Low 80.0 - 100.0 fL [facility] Nucleated RBC (Bld) [#/Vol] <0.01 k/uL [facility] Platelet mean volume (Bld) [Entitic vol] 9.8 fL 9.0 - 12.7 fL [facility] Platelets (Bld) [#/Vol] 252 10*3/uL 150 - 400 k/uL [facility] RBC (Bld) [#/Vol] 4.96 10*6/uL 3.90 - 5.2 0 m/uL [facility] WBC (Bld) [#/Vol] 7.91 10*3/uL 3.70 - 11. 00 k/uL [facility] URINE OB DIP B/Oon 3 Glucose Ql (U) Negative Neg mg/dL [facility] Protein.monoclonal (U) [Mass/Vol] Negative Neg mg/dL [facility] Progress Noteon 02-24-2022 Worship Leader Authentication Interface Message Text Patient ID: Nestor [...] second step placed next week. Working at [employer] this summer. Doing well on lexapro. No [...] Nestor has friends and has a job ([employer]). (likes reading). Drugs: Nestor does not use [...] Screen Concerns: no parent or grandparent with [place] angina peripheral or cerebrovascular disease <55 years, [...] present. No (more content not included)... Normal [facility] Progress Noteon 10-21-2021 Worship Leader Authentication Interface Message Text Patient ID: Nestor [...] in color of mole. Referral placed for [facility] dermatology. To call if any questions/concerns. [...] temperature source Temporal, weight 72.3 kg. Normal [place] TSH with reflex T4FRon 07-20 TSH with reflex T4FR 1.065 uIU/mL Normal 0.350-5.500 [facility] Comment on above: Order Comment: With differential. Is this specimen being sent to an external lab?->No Release to patient->Automatic [id number]&Blood^\S\^Venous&Venous Performed By: #### T SHR #### [address] [address] Vitamin D 25 OHon 07-20-2021 25 OH Vitamin D 94 ng/mL Normal 30-100 [place] Comment on above: Order Comment: With differential. Is this specimen being sent to an external lab?->No Release to patient->Automatic 56813&Blood^\S\^Venous&Venous Result Comment: Refe rence ranges provided by [facility] are based on Endocrine Society Guidelines: Level Characterization <21 ng/mL Vitamin D deficiency 21-29 ng/mL Suboptimal Vitamin D status 30-100 ng/mL Optimal Vitamin D status >100 ng/mL Potentially toxic Vitamin D effects NOTE: New Reference Ranges effective 18 Performed By: #### V 25DH #### [address] [address] C-Reactive Proteinon 021 C-Reactive Protein 0.6 mg/dL Normal 0.0-1.0 [place] Comment on above: Order Comment: With differential. Is this specimen being sent to an external lab?->No Release to patient->Automatic 11357&Blood^\S\^Venous&Venous Result Comment: CRP determinations in neonates should be interpreted with caution. CRP may be elevated in circumstances not associated with inflammation (e.g. difficult delivery, pneumothorax). In premature neonates CRP levels may not rise to abnormal levels even if sepsis is present; some speculate that immature liver function decreases the ability to generate a CRP response. Performed By: #### C RP #### [address] [address] Comp Metabolic Panelon 07-19 Albumin [Mass/Vol] 3.9 g/dL Normal 3.5-5.0 [place] Comment on above: Order Comment: With differential. Is this specimen being sent to an external lab?->No Release to patient->Automatic 69625&Blood^\S\^Venous&Venous Performed By: #### C MP #### [address] [address] ALP [Catalytic activity/Vol] 33 U/L Low 35-104 [place] Comment on above: Order Comment: With differential. Is this specimen being sent to an external lab?->No Release to patient->Automatic 48920&Blood^\S\^Venous&Venous Performed By: #### C MP #### [address] [address] ALT [Catalytic activity/Vol] 22 U/L Normal 0-31 [place] Comment on above: Order Comment: With differential. Is this specimen being sent to an external lab?->No Release to patient->Automatic 96082&Blood^\S\^Venous&Venous Performed By: #### C MP #### [address] [address] AST [Catalytic activity/Vol] 23 U/L Normal 0-31 [place] Comment on above: Order Comment: With differential. Is this specimen being sent to an external lab?->No Release to patient->Automatic 76339&Blood^\S\^Venous&Venous Performed By: #### C MP #### [address] [address] Bili,Total 0.4 mg/dl Normal 0.0-1.0 [place] Comment on above: Order Comment: With differential. Is this specimen being sent to an external lab?->No Release to patient->Automatic 70410&Blood^\S\^Venous&Venous Performed By: #### C MP #### [place] [address] Calcium [Mass/Vol] 8.9 mg/dL Normal 7.6-11.0 [place] Comment on above: Order Comment: With differential. Is this specimen being sent to an external lab?->No Release to patient->Automatic 88963&Blood^\S\^Venous&Venous Performed By: #### C MP #### [place] [address] Chloride [Moles/Vol] 99 mmol/L Normal 96-108 [facility] Comment on above: Order Comment: With differential. Is this specimen being sent to an external lab?->No Release to patient->Automatic 22106&Blood^\S\^Venous&Venous Performed By: #### C MP #### [address] [address] CO2 [Moles/Vol] 25.7 mmol/L Normal 22.0-29.0 [place] Comment on above: Order Comment: With differential. Is this specimen being sent to an external lab?->No Release to patient->Automatic 78776&Blood^\S\^Venous&Venous Performed By: #### C MP #### [address] [address] Creatinine [Mass/Vol] 0.78 mg/dL Normal 0.50-1.00 [facility] Comment on above: Order Comment: With differential. Is this specimen being sent to an external lab?->No Release to patient->Automatic 01057&Blood^\S\^Venous&Venous Result Comment: Premature 0.3-1.0 mg/dL Performed By: #### C MP #### [address] [address] Glucose [Mass/Vol] 95 mg/dL Normal 70-99 [place] Comment on above: Order Comment: With differential. Is this specimen being sent to an external lab?->No Release to patient->Automatic 99934&Blood^\S\^Venous&Venous Result Comment: Criteria for Diagnosis of Diabetes(Effective 01/10/11): Fasting specimen (no caloric intake for at least 8 hours). <100 mg/dl Normal 100-125 mg/dl Increased Risk for Diabetes >125 mg/dl Diagnostic for Diabetes Random Glucose (any time of day without regard to last meal). >=200 mg/dl plus Classic Symptoms of Diabetes Performed By: #### C MP #### [place] [address] Potassium [Moles/Vol] 3.5 mmol/L Normal 3.3-5.1 [facility] Comment on above: Order Comment: With differential. Is this specimen being sent to an external lab?->No Release to patient->Automatic 75165&Blood^\S\^Venous&Venous Performed By: #### C MP #### [place] [address] Protein [Mass/Vol] 6.9 g/dL Normal 5.9-8.4 [place] Comment on above: Order Comment: With differential. Is this specimen being sent to an external lab?->No Release to patient->Automatic 82851&Blood^\S\^Venous&Venous Performed By: #### C MP #### [place] [address] Sodium [Moles/Vol] 138 mmol/L Normal 133-145 [place] Comment on above: Order Comment: With differential. Is this specimen being sent to an external lab?->No Release to patient->Automatic 72773&Blood^\S\^Venous&Venous Performed By: #### C MP #### [place] [address] Urea nitrogen [Mass/Vol] 11 mg/dL Normal 4-19 [place] Comment on above: Order Comment: With differential. Is this specimen being sent to an external lab?->No Release to patient->Automatic 70312&Blood^\S\^Venous&Venous Performed By: #### C MP #### [place] [address] Complete Blood Counton 07-19 Differential Complete Automated Normal [facility] Comment on above: Order Comment: With differential. Is this specimen being sent to an external lab?->No Release to patient->Automatic 25331&Blood^\S\^Venous&Venous Performed By: #### C BC #### [place] [address] Basophils/100 WBC (Bld) 0.70 % Normal 0.00-1.00 [facility] Comment on above: Order Comment: With differential. Is this specimen being sent to an external lab?->No Release to patient->Automatic 60053&Blood^\S\^Venous&Venous Performed By: #### C BC #### [place] [address] Eosinophils/100 WBC (Bld) 2.50 % Normal 0.00-3.00 [place] Comment on above: Order Comment: With differential. Is this specimen being sent to an external lab?->No Release to patient->Automatic 72987&Blood^\S\^Venous&Venous Performed By: #### C BC #### [place] [address] Erythrocyte distribution width (RBC) [Ratio] 12.2 % Normal 0.0-14.4 [place] Comment on above: Order Comment: With differential. Is this specimen being sent to an external lab?->No Release to patient->Automatic 35232&Blood^\S\^Venous&Venous Performed By: #### C BC #### [place] [address] Hematocrit (Bld) [Volume fraction] 39.3 % Normal 36.0-44.0 [place] Comment on above: Order Comment: With differential. Is this specimen being sent to an external lab?->No Release to patient->Automatic 94522&Blood^\S\^Venous&Venous Performed By: #### C BC #### [place] [address] Hemoglobin (Bld) [Mass/Vol] 12.9 g/dL Normal 12.0-15.0 [place] Comment on above: Order Comment: With differential. Is this specimen being sent to an external lab?->No Release to patient->Automatic 19161&Blood^\S\^Venous&Venous Performed By: #### C BC #### [place] [address] Immature granulocytes/100 WBC (Bld) 0.30 % Normal [place] Comment on above: Order Comment: With differential. Is this specimen being sent to an external lab?->No Release to patient->Automatic 99940&Blood^\S\^Venous&Venous Result Comment: Nancie ture Granulocyte Percent includes promyelocytes, myelocytes, and metamyelocytes. IG% > 1.0 indicates a left shift is present. With automated differentials, bands are included in the neutrophil count and not in the Immature Granulocyte Percent. Performed By: #### C BC #### [place] [address] Lymphocytes/100 WBC (Bld) 41.4 % Normal 24.0-44.0 [place] Comment on above: Order Comment: With differential. Is this specimen being sent to an external lab?->No Release to patient->Automatic 77070&Blood^\S\^Venous&Venous Performed By: #### C BC #### [place] [address] MCH (RBC) [Entitic mass] 26.5 pg Normal 26.0-34.0 [place] Comment on above: Order Comment: With differential. Is this specimen being sent to an external lab?->No Release to patient->Automatic 41260&Blood^\S\^Venous&Venous Performed By: #### C BC #### [address] [address] MCHC 32.8 % Normal 31.0-37.0 [place] Comment on above: Order Comment: With differential. Is this specimen being sent to an external lab?->No Release to patient->Automatic 86073&Blood^\S\^Venous&Venous Performed By: #### C BC #### [place] [address] MCV (RBC) [Entitic vol] 80.9 fL Normal 80.0-100.0 [facility] Comment on above: Order Comment: With differential. Is this specimen being sent to an external lab?->No Release to patient->Automatic 69567&Blood^\S\^Venous&Venous Performed By: #### C BC #### [address] [address] Monocytes/100 WBC (Bld) 7.10 % High 3.00-6.00 [facility] Comment on above: Order Comment: With differential. Is this specimen being sent to an external lab?->No Release to patient->Automatic 09960&Blood^\S\^Venous&Venous Performed By: #### C BC #### [address] [address] Neutrophils (Bld) [#/Vol] 3.4 10*3/uL Normal 2.0-7.2 [place] Comment on above: Order Comment: With differential. Is this specimen being sent to an external lab?->No Release to patient->Automatic 99072&Blood^\S\^Venous&Venous Performed By: #### C BC #### [address] [id number] Neutrophils/100 WBC (Bld) 48.0 % Normal 35.0-66.0 [place] Comment on above: Order Comment: With differential. Is this specimen being sent to an external lab?->No Release to patient->Automatic 49225&Blood^\S\^Venous&Venous Performed By: #### C BC #### [address] [id number] Nucleated RBC/100 WBC (Bld) [Ratio] 0.0 % Normal -1.0-0.0 [place] Comment on above: Order Comment: With differential. Is this specimen being sent to an external lab?->No Release to patient->Automatic 39239&Blood^\S\^Venous&Venous Performed By: #### C BC #### [address] [address] Platelet mean volume (Bld) [Entitic vol] 10.3 fL Normal [place] Comment on above: Order Comment: With differential. Is this specimen being sent to an external lab?->No Release to patient->Automatic 57115&Blood^\S\^Venous&Venous Result Comment: MPV is platelet range and age dependent Performed By: #### C BC #### [address] [address] Platelets (Bld) [#/Vol] 279 10*3/uL Normal 150-450 [place] Comment on above: Order Comment: With differential. Is this specimen being sent to an external lab?->No Release to patient->Automatic 28899&Blood^\S\^Venous&Venous Performed By: #### C BC #### [address] [address] RBC 4.86 10E12/L Normal 4.00-4.90 [place] Comment on above: Order Comment: With differential. Is this specimen being sent to an external lab?->No Release to patient->Automatic 13253&Blood^\S\^Venous&Venous Performed By: #### C BC #### [facility] [address] [place] [address] WBC (Bld) [#/Vol] 7.2 10*3/uL Normal 4.5-11.0 [place] Comment on above: Order Comment: With differential. Is this specimen being sent to an external lab?->No Release to patient->Automatic 57302&Blood^\S\^Venous&Venous Performed By: #### C BC #### [facility] [address] [place] [address] Progress Noteon 07-19-2021 Worship Leader Authentication Interface Message Text Patient ID: Nestor [...] Blood 93 70 - 99 mg/dL Normal [facility] Microscopic observation Gram stain Nom (Vag fld)on 11-21-2019 Microscopic observation Smear Nom (Unsp spec) BACTERIAL VAGINOSIS RESULT: Stain results consistent with bacterial vaginosis. Abnormal [facility] Microscopic observation Smear Nom (Unsp spec) No Yeast observed [facility] Microscopic observation Smear Nom (Unsp spec) No Polymorphonuclear Leukocytes [facility] Specimen Request Swab [facility] Vital Signs Date Time Vital Sign Value Performing Clinician Facility 02-14-2025 10:040 Body height 167.[address] Betsy Coleman DO Work Phone: [facility] 02-14-2025 10:22-0400 Body mass index (BMI) [Ratio] 25 kg/m2 Dr. Betsy Coleman DO Work Phone: [facility] 02-14-2025 10:22-0400 Body temperature 97.6 [degF] Dr. Betsy Coleman DO Work Phone: [facility] 02-14-2025 10:22-0400 Body weight 70.[address] Betsy Coleman DO Work Phone: [facility] 02-14-2025 10:22-0400 Diastolic blood pressure 62 mm[Hg] Dr. Betsy Coleman DO Work Phone: 4(722)238-609031 [place] [address] 02-14-2025 10:22-0400 Heart rate 97 /min Dr. Betsy Coleman DO Work Phone: 6(090)082-685331 [place] [address] 02-14-2025 10:22-0400 Respiratory rate 16 /min Dr. Betsy Coleman DO Work Phone: 1(879)364-455031 [place] [address] 02-14-2025 10:22-0400 SaO2% (BldA) [Mass fraction] 99 % Dr. Betsy Coleman DO Work Phone: [facility] 02-14-2025 10:22-0400 Systolic blood pressure 106 mm[Hg] Dr. Betsy Coleman DO Work Phone: [facility] 11-26-2024 15:25-0400 Body mass index (BMI) [Ratio] 25.02 kg/m2 Sandra Godoy MD Work Phone: [facility] 11-26-2024 15:25-0400 Body weight 70.31 kg Sandra Godoy MD Work Phone: [facility] 11-26-2024 15:25-0400 Diastolic blood pressure 70 mm[Hg] Sandra Godoy MD Work Phone: [facility] 11-26-2024 15:25-0400 Systolic blood pressure 120 mm[Hg] Sandra Godoy MD Work Phone: [facility] 11-15-2024 09:38-0400 Body height 167.[address] Betsy Coleman DO Work Phone: [facility] 11-15-2024 09:38-0400 Body mass index (BMI) [Ratio] 24.5 kg/m2 Dr. Betsy Coleman DO Work Phone: [facility] 11-15-2024 09:38-0400 Body temperature 97.9 [degF] Dr. Betsy Coleman DO Work Phone: [facility] 11-15-2024 09:38-0400 Body weight 69.[address] Betsy Coleman DO Work Phone: 5(556)081-226031 [place] [address] 11-15-2024 09:38-0400 Diastolic blood pressure 68 mm[Hg] Dr. Betsy Coleman DO Work Phone: [facility] 11-15-2024 09:38-0400 Heart rate 96 /min Dr. Betsy Coleman DO Work Phone: 3(613)495-105831 [place] [address] 11-15-2024 09:38-0400 Respiratory rate 16 /min Dr. Betsy Coleman DO Work Phone: [facility] 11-15-2024 09:38-0400 SaO2% (BldA) [Mass fraction] 98 % Dr. Betsy Coleman DO Work Phone: [facility] 11-15-2024 09:38-0400 Systolic blood pressure 102 mm[Hg] Dr. Betsy Coleman DO Work Phone: [facility] 08-27-2024 10:18-0500 Body height 167.6 cm Sandra Godoy MD Work Phone: [facility] 08-27-2024 10:18-0500 Body mass index (BMI) [Ratio] 25.34 kg/m2 Sandra Godoy MD Work Phone: [facility] 08-27-2024 10:18-0500 Body weight 71.22 kg Sandra Godoy MD Work Phone: [facility] 08-27-2024 10:18-0500 Diastolic blood pressure 64 mm[Hg] Sandra Godoy MD Work Phone: [facility] 08-27-2024 10:18-0500 Systolic blood pressure 110 mm[Hg] Sandra Godoy MD Work Phone: [facility] 03-20-2023 11:36-0400 Body height 167.6 cm Berenice Ovalle MD Work Phone: [facility] 03-20-2023 11:36-0400 Body weight 68.95 kg Berenice Ovalle MD Work Phone: [facility] 03-20-2023 11:36-0400 Diastolic blood pressure 62 mm[Hg] Berenice Ovalle MD Work Phone: [facility] 03-20-2023 11:36-0400 Systolic blood pressure 112 mm[Hg] Berenice Ovalle MD Work Phone: [facility] 02-13-2023 14:22-0400 Diastolic blood pressure 70 mm[Hg] Terra Herrera APRN.CNM Work Phone: [facility] 02-13-2023 14:22-0400 Systolic blood pressure 110 mm[Hg] Terra Herrera APRN.CNMatty Work Phone: [facility] 02-06-2023 22:09-0400 Body temperature 99.4 [degF] [facility] 02-06-2023 22:09-0400 SaO2% (BldA) [Mass fraction] 98 % [facility] 02-06-2023 22:08-0400 Heart rate 119 /min [facility] 02-06-2023 22:04-0400 Diastolic blood pressure 95 mm[Hg] [facility] 02-06-2023 22:04-0400 Systolic blood pressure 142 mm[Hg] [facility] 02-06-2023 20:26-0400 Body height 167.[address] [facility] 02-06-2023 20:26-0400 Body mass index (BMI) [Ratio] 27.1 kg/m2 [facility] 02-06-2023 20:26-0400 Body weight 76.[address] [facility] 02-06-2023 09:26-0400 Body weight 76.2 kg Terra Herrera APRN.CNMatty Work Phone: [facility] 02-06-2023 09:26-0400 Diastolic blood pressure 78 mm[Hg] Terra Herrera APRN.CNMatty Work Phone: [facility] 02-06-2023 09:26-0400 Systolic blood pressure 114 mm[Hg] Terra Herrera APRN.CNM Work Phone: [facility] 02-04-2023 05:38-0400 Body height 167.[address] [facility] 02-04-2023 05:38-0400 Body mass index (BMI) [Ratio] 27.7 kg/m2 [facility] 02-04-2023 05:38-0400 Body weight 78.[address] [facility] 02-04-2023 05:13-0400 Body temperature 97.8 [degF] [facility] 02-04-2023 05:13-0400 Diastolic blood pressure 73 mm[Hg] [facility] 02-04-2023 05:13-0400 Heart rate 75 /min [facility] 02-04-2023 05:13-0400 SaO2% (BldA) [Mass fraction] 99 % [facility] 02-04-2023 05:13-0400 Systolic blood pressure 126 mm[Hg] [facility] 01-30-2023 11:10-0400 Body weight 77.56 kg Terra Herrera APRN.CNMatty Work Phone: [facility] 01-30-2023 11:10-0400 Diastolic blood pressure 72 mm[Hg] Terra Herrera CLERK TELEGRAPH SERVICE.CNM Work Phone: [facility] 01-30-2023 11:10-0400 Systolic blood pressure 108 mm[Hg] Terra Herrera CLERK TELEGRAPH SERVICE.CNM Work Phone: [facility] 12-06-2022 10:49-0400 Body weight 69.85 kg Terradoni Herrera CLERK TELEGRAPH SERVICE.CNM Work Phone: [facility] 12-06-2022 10:49-0400 Diastolic blood pressure 68 mm[Hg] Terra Herrera CLERK TELEGRAPH SERVICE.CNM Work Phone: [facility] 12-06-2022 10:49-0400 Systolic blood pressure 112 mm[Hg] Terra Herrera CLERK TELEGRAPH SERVICE.CNM Work Phone: [facility] 11-01-2022 10:16-0400 Body weight 69.9 kg Partha Cornelius MD Work Phone: [facility] 11-01-2022 10:16-0400 Diastolic blood pressure 68 mm[Hg] Partha Cornelius MD Work Phone: [facility] 11-01-2022 10:16-0400 Systolic blood pressure 100 mm[Hg] Partha Cornelius MD Work Phone: [facility] 10-06-2022 09:45-0500 Body weight 71.22 kg Berenice Ovalle MD Work Phone: [facility] 10-06-2022 09:45-0500 Diastolic blood pressure 74 mm[Hg] Berenice Ovalle MD Work Phone: [facility] 10-06-2022 09:45-0500 Systolic blood pressure 118 mm[Hg] Berenice Ovalle MD Work Phone: [facility] 09-08-2022 10:29-0500 Body weight 73.03 kg Berenice Ovalle MD Work Phone: [facility] 09-08-2022 10:29-0500 Diastolic blood pressure 64 mm[Hg] Berenice Ovalle MD Work Phone: [facility] 09-08-2022 10:29-0500 Systolic blood pressure 112 mm[Hg] Berenice Ovalle MD Work Phone: [facility] 07-15-2022 09:27-0500 Body height 167.6 cm Bello Navarro MD Work Phone: [facility] 07-15-2022 09:27-0500 Body temperature 98.4 [degF] Bello Navarro MD Work Phone: [facility] 07-15-2022 09:27-0500 Body weight 72.58 kg Bello Navarro MD Work Phone: [facility] 07-15-2022 09:27-0500 Diastolic blood pressure 78 mm[Hg] Bello Navarro MD Work Phone: [facility] 07-15-2022 09:27-0500 Heart rate 113 /min Bello Navarro MD Work Phone: [facility] 07-15-2022 09:27-0500 SaO2% (BldA) [Mass fraction] 99 % Bello Navarro MD Work Phone: [facility] 07-15-2022 09:27-0500 Systolic blood pressure 130 mm[Hg] Bello Navarro MD Work Phone: [facility] 02-15-2022 09:30-0400 Body height 168.9 cm Dinorah Smith APRN.PARTY CHIEF Work Phone: [facility] 02-15-2022 09:30-0400 Body weight 73.39 kg Dinorah Smith APRN.PARTY CHIEF Work Phone: [facility] 02-15-2022 09:30-0400 Diastolic blood pressure 70 mm[Hg] Dinorah Smith APRN.PARTY CHIEF Work Phone: [facility] 02-15-2022 09:30-0400 Systolic blood pressure 108 mm[Hg] Dinorah Smith APRN.PARTY CHIEF Work Phone: [facility] 11-28-2021 08:43-0400 Body temperature 98.71 [degF] Jean Adams PA-C Work Phone: [facility] 11-28-2021 08:43-0400 Body weight 74.84 kg Jean Athy PA-C Work Phone: [facility] 11-28-2021 08:43-0400 Diastolic blood pressure 78 mm[Hg] Jean Athy PA-C Work Phone: [facility] 11-28-2021 08:43-0400 Heart rate 76 /min Jean Athy PA-C Work Phone: [facility] 11-28-2021 08:43-0400 Respiratory rate 18 /min Jean Athy PA-C Work Phone: [facility] 11-28-2021 08:43-0400 SaO2% (BldA) [Mass fraction] 98 % Jean Athy PA-C Work Phone: [facility] 11-28-2021 08:43-0400 Systolic blood pressure 116 mm[Hg] Jean Athy PA-C Work Phone: [facility] Encounters Encounter Date Encounter Type Care Provider Facility Start: 03-18-2025 ambulatory SANDRA GODOY Facility:[facility] Start: 03-18-2025 End: 03-18-2025 Subsequent hospital visit by physician [facility] Work Phone: Radiology Comment on above: Solitary cyst of lef t breast [N60.02] Start: 02-14-2025 End: 02-14-[address] Franklin Brown MD -[facility] Work Phone: Start: 02-14-2025 End: 02-14-[address] Betsy Coleman DO Work Phone: -[facility] Start: 12-17-2024 End: 12-17-2024 Refill [...] Start: 11-26-2024 End: 11-26-2024 ambulatory SANDRA GODOY Facility:[facility] Start: 11-26-2024 End: 11-26-2024 Telephone encounter Sandra Godoy MD Work Phone: OB/Gynecology Comment on above: Appointment Start: 11-15-2024 End: 11-15-[address] Franklin Brown MD -[facility] Work Phone: Start: 11-15-2024 End: 11-15-[address] Betsy Coleman DO Work Phone: [facility] Work Phone: Start: 11-15-2024 End: 11-15-2024 ambulatory Franklin Brown Facility:[facility] Start: 09-19-2024 End: 09-19-2024 Refill Sandra Godoy MD Work Phone: OB/Gynecology Comment on above: Med Change Request Start: 09-18-2024 End: 09-18-2024 ambulatory SANDRA GODOY Facility:[facility] Start: 09-18-2024 End: 09-18-2024 Subsequent hospital visit by physician [facility] Work Phone: Radiology Comment on above: Mass of upper inner quadrant of left breast [N63.22] Start: 09-18-2024 End: 11-18-2024 Follow-up encounter Sandra Godoy MD Work Phone: OB/Gynecology Start: 08-27-2024 End: 08-27-2024 ambulatory SANDRA GODOY Facility:[facility] Start: 08-27-2024 End: 08-27-2024 Patient encounter procedure Sandra Godoy MD Work Phone: OB/Gynecology Comment on above: Encounter for gyneco logical examination (general) (routine) without abnormal findings (Primary Dx); Anxiety neurosis; Mass of upper inner quadrant of left breast Start: 08-27-2024 End: 08-27-2024 Patient encounter status Sandra Godoy MD Work Phone: [facility] Start: 03-20-2023 End: 03-20-2023 Patient encounter procedure Berenice Ovalle MD Work Phone: OB/Gynecology Comment on above: care and examination (Primary Dx); Encounter for screening for lipoid disorders Start: 02-13-2023 End: 02-13-2023 Patient encounter procedure Terra Herrera APRN.CNM Work Phone: OB/Gynecology Comment on above: Dizziness (Primary D x) Start: 02-07-2023 End: 02-07-2023 ambulatory UNKNOWN PROVIDER Facility:[facility] Start: 02-07-2023 End: 02-10-2023 Evaluation and management of inpatient ARELI WHITEHEAD Facility:[facility] Start: 02-06-2023 End: 02-06-2023 ambulatory [facility] Work Phone: Start: 02-06-2023 End: 02-06-2023 Patient encounter procedure [facility] Work Phone: Start: 02-06-2023 End: 02-06-2023 Patient encounter procedure Terra Herrera APRN.CNM Work Phone: OB/Gynecology Comment on above: 29 weeks gestation o f (Primary Dx) Start: 02-04-2023 End: 02-04-2023 ambulatory [facility] Work Phone: Start: 02-04-2023 End: 02-04-2023 Patient encounter procedure [facility] Work Phone: Start: 02-02-2023 Telephone encounter Mary cameron MD Work Phone: OB/Gynecology Comment on above: OB Pain Start: 02-01-2023 Telephone encounter Terra najera APRN.CNM Work Phone: OB/Gynecology Comment on above: Orders Start: 02-01-2023 End: 02-01-2023 Nursing evaluation of patient and report Nurse [facility] Work Phone: OB/Gynecology Comment on above: [...] evaluation of patient and report [facility] Work Phone: OB/Gynecology Comment on above: Supervision of renetta l first , antepartum (Primary Dx); History of anxiety; Patient request for diagnostic testing Start: 09-08-2022 End: 02-06-2023 Patient requested procedure Nurse [facility] Work Phone: OB/Gynecology Start: 08-16-2022 Telephone encounter Berenice Ovalle MD Work Phone: OB/Gynecology Comment on above: Appointment Start: 07-15-2022 End: 07-15-2022 Patient encounter procedure Bello Navarro MD Work Phone: General Surgery Comment on above: Mass of upper inner quadrant of left breast (Primary Dx) Start: 02-15-2022 End: 02-15-2022 Patient encounter procedure Dinorah Smith APRN.PARTY CHIEF Work Phone: OB/Gynecology Comment on above: Encounter for gyneco logical examination without abnormal finding (Primary Dx); Surveillance for control, oral contraceptives Start: 02-15-2022 End: 02-15-2022 Patient encounter status Dinorah Smith APRN.PARTY CHIEF Work Phone: OB/Gynecology Start: 11-28-2021 End: 11-28-2021 Patient encounter procedure Jean Adams PA-C Work Phone: [facility] Comment on above: Other infective acut e otitis externa of left ear (Primary Dx) Start: 11-20-2019 Orders Only Dinorah LOERA RN.PARTY CHIEF Work Phone: OB/Gynecology Comment on above: Vaginal [...] Work Phone: Start: 02-07-2023 Antibody screen ARELI WA LES Comment on above: Order Comment: Speci men Type: BLOOD SPECIMEN Ordering Facility: [facility] Address: [address] [place], [place] [id number] Performed By: #### 5 [id number] #### [facility] CLIA [id number] [address] [place] [address] [place] Start: 02-06-2023 URINE [...] gram/gi emsa stain bct fungi/cell Dinorah Smith APRN.PARTY CHIEF Work Phone: Start: 03-17-2017 Adult depression scr eening assessment Jean Aadms PA-C Work Phone: Plan of Treatment Date Care Activity Detail Author Start: 02-01-2033 Urine microalbumin profile [facility] Start: 09-08-2025 PAP TESTING PAP TESTING [facility] Start: 09-08-2025 Screening for malign ant neoplasm of cervix Cervical Cancer Screening [facility] Start: 08-28-2025 End: 08-28-2025 Patient encounter procedure 08/28/2025 11:20 AM EST Office Visit OB/Gynecology [address] [place] [phone] Sandra Vizcaino MD [address] [place] [phone] ANNUAL OB/Gynecology Comment on above: ANNUAL Start: 04-07-2025 Influenza vaccination C [facility] Start: 03-18-2025 End: 10-18-2025 US Breast - left limited US BREAST LTD LEFT Radiology Routine Solitary cyst of left breast Expected: 03/18/2025 (Approximate), Expires: 10/18/2025 [facility] Work Phone: Comment on above: Expected: 03/18/2025 (Approximate), Expires: 10/18/2025 Start: 03-18-2025 End: 03-18-2025 Patient encounter procedure 03/18/2025 8:30 AM EDT Appointment Radiology [address] [place] [phone] Solitary cyst of left breast [N60.02] Radiology Comment on above: Solitary cyst of lef t breast [N60.02] Start: 09-18-2024 End: 09-18-2024 Patient encounter procedure 09/18/2024 10:30 AM EST Appointment Radiology [address] [place] [address] Mass of upper inner quadrant of left breast [N63.22] Radiology Comment on above: Mass of upper inner quadrant of left breast [N63.22] Start: 04-07-2024 Covid-19 Vaccine () Covid-19 Vaccine () [facility] Start: 04-07-2024 Influenza vaccination Influenza Vacc ine (#1) [facility] Start: 09-08-2023 CHLAMYDIA SCREENING (18-24) CHLAMYDIA SCREENING (18-24) [facility] Start: 09-08-2023 GC (GONORRHEA) SCREENING (18-24) GC (GONORRHEA) SCREENING (18-24) [facility] Start: 09-08-2023 Screening for Chlamy tere trachomatis Chlamydia Screening () [facility] Start: 05-11-2023 Urine microalbumin profile DTAP,TDAP,TD (7 - Td or Tdap) [facility] Start: 04-07-2023 Influenza vaccination INFLUENZA (#1) [facility] Start: 03-20-2023 End: 05-20-2023 LIPID PANEL, NONFASTING LIPID PANEL, NONFASTING Lab Routine Encounter for screening for lipoid disorders Expected: 03/20/2023, Expires: 05/20/2023 [facility] Work Phone: Comment on above: Expected: 03/20/2023 , Expires: 05/20/2023 Start: 02-06-2023 Nonstress test [facility] Start: 02-06-2023 Obstetric monitoring [facility] Start: 02-06-2023 Vital signs measurements [facility] Start: 02-06-2023 [facility] Start: 02-04-2023 Bacteria identified in Urine by Culture Urine Culture [facility] Start: 02-04-2023 Nonstress test [facility] Start: 02-04-2023 End: 02-04-2023 [facility] Start: 02-04-2023 Obstetric monitoring [facility] Start: 02-04-2023 Vital signs measurements [facility] Start: 02-04-2023 Patient discharge [facility] Start: 01-30-2023 End: 04-01-2023 GEST GLUC JENNA, 3-HR, 100 GM, FASTING GEST GLUC JENNA, 3-HR, 100 GM, FASTING Lab Routine Abnormal glucose in , antepartum Expected: 01/30/2023, Expires: 04/01/2023 [facility] Work Phone: Comment on above: Expected: 01/30/2023 , Expires: 04/01/2023 Start: 01-24-2023 End: 03-26-2023 TYPE + SCREEN TYPE + SCREEN Blood Bank Routine Rh negative state in antepartum period, first trimester Expected: 01/24/2023, Expires: 03/26/2023 [facility] Work Phone: Comment on above: Expected: 01/24/2023 , Expires: 03/26/2023 Start: 11-01-2022 End: 01-01-2023 ALPHA FETOPRO MATERNAL [facility] Work Phone: Comment on above: Expected: 11/01/2022 , Expires: 01/01/2023 Start: 10-06-2022 End: 12-06-2022 Chromosome 21 trisomy [Presence] in Blood or Tissue by Cytogenetics [facility] Work Phone: Comment on above: Expected: 10/06/2022 , Expires: 12/06/2022 Start: 10-06-2022 End: 12-06-2022 CYSTIC FIBROSIS PATHOGENIC VARIANT ANALYSIS [facility] Work Phone: Comment on above: Expected: 10/06/2022 , Expires: 12/06/2022 Start: 10-06-2022 End: 10-07-2023 OBSTETRIC ULTRASOUND WHI OBSTETRIC ULTRASOUND WHI Anc Imaging Routine 11 weeks gestation of Patient request for diagnostic testing Encounter for supervision of normal first in first trimester Expected: 10/06/2022, Expires: 10/07/2023 [facility] Work Phone: Comment on above: Expected: 10/06/2022 , Expires: 10/07/2023 Start: 09-08-2022 End: 11-08-2022 CBC panel - Blood by Automated count CBC Lab Routine Encounter for care in first trimester of first Expected: 09/08/2022, Expires: 11/08/2022 [facility] Work Phone: Comment on above: Expected: 09/08/2022 , Expires: 11/08/2022 Start: 09-08-2022 End: 11-08-2022 Hepatitis B virus surface Ag [Presence] in Serum HEP B SURF AG SCRN Lab Routine Encounter for care in first trimester of first Expected: 09/08/2022, Expires: 11/08/2022 [facility] Work Phone: Comment on above: Expected: 09/08/2022 , Expires: 11/08/2022 Start: 09-08-2022 End: 11-08-2022 Hepatitis C virus Ab [Presence] in Serum HEP C AB IA W/CONF SCRN Lab Routine Encounter for care in first trimester of first Expected: 09/08/2022, Expires: 11/08/2022 [facility] Work Phone: Comment on above: Expected: 09/08/2022 , Expires: 11/08/2022 Start: 09-08-2022 End: 11-08-2022 HIV 1+2 Ab [Presence] in Serum or Plasma by Immunoassay HIV 1 2 COMBO(AG/AB),WITH REFLEX TO DIFFERENTIATION Lab Routine Encounter for care in first trimester of first Expected: 09/08/2022, Expires: 11/08/2022 [facility] Work Phone: Comment on above: Expected: 09/08/2022 , Expires: 11/08/2022 Start: 09-08-2022 End: 11-08-2022 RUBELLA IGG AB RUBELLA IGG AB Lab Routine Encounter for care in first trimester of first Expected: 09/08/2022, Expires: 11/08/2022 [facility] Work Phone: Comment on above: Expected: 09/08/2022 , Expires: 11/08/2022 Start: 09-08-2022 End: 11-08-2022 SYPHILIS TOTAL W/REFLEX SYPHILIS TOTAL W/REFLEX Lab Routine Encounter for care in first trimester of first Expected: 09/08/2022, Expires: 11/08/2022 [facility] Work Phone: Comment on above: Expected: 09/08/2022 , Expires: 11/08/2022 Start: 09-08-2022 End: 11-08-2022 TYPE + SCREEN TYPE + SCREEN Blood Bank Routine Encounter for care in first trimester of first Expected: 09/08/2022, Expires: 11/08/2022 [facility] Work Phone: Comment on above: Expected: 09/08/2022 , Expires: 11/08/2022 Start: 08-07-2022 DEPRESSION ASSESSMENT DEPRESSION ASS ESSMENT [facility] Start: 2022 PAP TESTING PAP TESTING [facility] Start: 04-07-2022 Influenza vaccination [facility] Start: 10-16-2021 COVID-19 VACCINE (3 - Booster for Pfizer series) COVID-19 VACCINE (3 - Booster for Pfizer series) [facility] Start: 08-07-2021 DEPRESSION ASSESSMENT DEPRESSION ASS ESSMENT [facility] Start: 07-13-2021 COVID-19 VACCINE (3 - Booster for Pfizer series) COVID-19 VACCINE (3 - Booster for Pfizer series) [facility] Start: 07-13-2021 COVID-19 VACCINE (3 - Pfizer series) COVID-19 VACCINE (3 - Pfizer series) [facility] Start: 11-19-2020 CHLAMYDIA SCREENING (18-24) CHLAMYDIA SCREENING (18-24) [facility] Start: 11-19-2020 GC (GONORRHEA) SCREENING (18-24) GC (GONORRHEA) SCREENING (18-24) [facility] Start: 2019 Anxiety Screening Anxiety Screening [facility] Start: 2019 Depression Screening Depression Scre ening [facility] Start: 2019 HEPATITIS C SCREENING HEPATITIS C SC REENING [facility] Start: 2019 HIV SCREENING HIV SCREENING [facility] Start: 03-17-2018 Adult depression screening assessment DEPRESSION SCREENING [facility] Start: 2015 PEDS TO ADULT TRANSITION ANNUAL ASSESSMENT PEDS TO ADULT TRANSITION ANNUAL ASSESSMENT [facility] Start: 2013 PEDS TO ADULT TRANSITION INITIAL DISCUSSION PEDS TO ADULT TRANSITION INITIAL DISCUSSION [facility] Start: 2011 MENINGOCOCCAL B: Consider based on risk (1 of 2 - Risk Bexsero 2-dose series) MENINGOCOCCAL B: Consider based on risk (1 of 2 - Risk Bexsero 2-dose series) [facility] Bacteria identified in Urine by Culture URINE CULTURE Microbiology Routine Encounter for care in first trimester of first 09/08/2022 11:11 AM [facility] Work Phone: Bacteria identified in Urine by Culture URINE CULTURE Microbiology Routine 29 weeks gestation of 02/06/2023 10:48 AM EDT [facility] Work Phone: CBC W Auto Different ial panel - Blood [facility] Chlamydia trachomatis+Neisseria gonorrhoeae DNA [Presence] in Unspecified specimen by REGGIE with probe detection GC/CHLAMYDIA DNA DET Lab Routine Encounter for care in first trimester of first 09/08/2022 11:11 AM [facility] Work Phone: Comprehensive metabo lic 2000 panel - Serum or Plasma [facility] Insertion intrauteri ne device iud INSERT INTRAUTERINE DEVICE Procedures Routine Encounter for initial prescription of intrauterine contraceptive device (IUD) Ordered: 11/26/2024 [facility] Work Phone: Comment on above: Ordered: 11/26/2024 Insertion intrauteri ne device iud INSERT INTRAUTERINE DEVICE Procedures Routine Encounter for initial prescription of intrauterine contraceptive device (IUD) Ordered: 11/27/2024 [facility] Work Phone: Comment on above: Ordered: 11/27/2024 PAP FLUID CERVICAL SCREENING PAP FLUID CERVICAL SCREENING Lab Routine Encounter for care in first trimester of first 09/08/2022 11:11 AM [facility] Work Phone: Patient Education Kick Counts ED False Labor OB Triage: Return to Hospital or Notify Physician if you Experience: [facility] Work Phone: Patient referral [facility] Work Phone: T4 free measurement [facility] Thyroid stimulating hormone measurement [facility] End: 09-26-2025 US Breast - left limited US BREAST LTD LEFT Radiology Routine Mass of upper inner quadrant of left breast 1 Occurrences starting 08/27/2024 until 09/26/2025 [facility] Work Phone: Comment on above: 1 Occurrences starti ng 08/27/2024 until 09/26/2025 End: 08-14-2023 Us breast uni real time with image limited US BREAST LTD LT Radiology Routine Mass of upper inner quadrant of left breast 1 Occurrences starting 07/15/2022 until 08/14/2023 [facility] Work Phone: Comment on above: 1 Occurrences starti ng 07/15/2022 until 08/14/2023 [facility] c [facility] c [facility] c [facility] c [facility] c [facility] c [facility] c [facility] c [facility] c [facility] c [place] [facility] c Immunizations Immunization Date Immunization Notes Care Provider Paulino mccann 02-07-2023 RHO(D) immune globul in- IV or IM Terra Herrera CLERK TELEGRAPH SERVICE.CNM Work Phone: [facility] 02-01-2023 RHO(D) immune globul in- IV or IM Terra Herrera CLERK TELEGRAPH SERVICE.CNM Work Phone: [facility] 02-01-2023 tetanus toxoid, redu miguelina diphtheria toxoid, and acellular pertussis vaccine, adsorbed Terra Herrera CLERK TELEGRAPH SERVICE.CNM Work Phone: [facility] 01-30-2023 tetanus toxoid, redu miguelina diphtheria toxoid, and acellular pertussis vaccine, adsorbed [facility] 05-13-2022 Influenza, injectabl e, Madin Yarelis Canine Kidney, quadrivalent with preservative Nurse Wstr Work Phone: [facility] Work Phone: 05-13-2022 Influenza, injectabl e, Madin Yarelis Canine Kidney, preservative free, quadrivalent Nurse Wstr Work Phone: [facility] Work Phone: 05-13-2022 influenza virus vacc ine, unspecified formulation Sandra Godoy MD Work Phone: [facility] 04-16-2021 COVID-19 vaccine, ag e 12+ yr ([employer]-Talentology - PURPLE TOP) Jean Adams PA-C Work Phone: [facility] Work Phone: 11-20-2020 meningococcal B vacc ine, recombinant, OMV, adjuvanted Nurse Wstr Work Phone: [facility] Work Phone: 04-16-2019 hepatitis A vaccine, pediatric/adolescent dosage, 2 dose schedule Nurse Wstr Work Phone: [facility] Work Phone: 04-16-2019 meningococcal B vacc ine, recombinant, OMV, adjuvanted Nurse Wstr Work Phone: [facility] Work Phone: 03-27-2018 hepatitis A vaccine, pediatric/adolescent dosage, 2 dose schedule Nurse Wstr Work Phone: [facility] Work Phone: 03-27-2018 meningococcal polysaccharide (groups A, C, Y and W-135) diphtheria toxoid conjugate vaccine (MCV4P) Nurse Wstr Work Phone: [facility] Work Phone: 03-17-2017 Human Papillomavirus 9-valent vaccine Jean Adams PA-C Work Phone: [facility] 03-15-2016 Human Papillomavirus 9-valent vaccine Jean Adams PA-C Work Phone: [facility] Work Phone: 08-27-2014 influenza, live, intranasal, quadrivalent Jean Adams PA-C Work Phone: [facility] 02-28-2014 meningococcal polysaccharide (groups A, C, Y and W-135) diphtheria toxoid conjugate vaccine (MCV4P) Jean Adams PA-C Work Phone: [facility] 02-28-2014 varicella virus vaccine Jean PHILLIPS-C Work Phone: [facility] 05-11-2013 human papilloma viru s vaccine, quadrivalent Jean PHILLIPS-C Work Phone: [facility] 05-11-2013 influenza virus vacc ine, live, attenuated, for intranasal use Jean Adams PA-C Work Phone: [facility] 05-11-2013 tetanus toxoid, redu miguelina diphtheria toxoid, and acellular pertussis vaccine, adsorbed Jean Adams PA-C Work Phone: [facility] 05-05-2012 influenza virus vacc ine, live, attenuated, for intranasal use Jean Adams PA-C Work Phone: [facility] 06-23-2011 influenza virus vacc ine, live, attenuated, for intranasal use Jean Adams PA-C Work Phone: [facility] 06-11-2010 influenza virus vacc ine, live, attenuated, for intranasal use Jean Adams PA-C Work Phone: [facility] 10-03-2005 diphtheria, tetanus toxoids and acellular pertussis vaccine Jean PHILLIPS-C Work Phone: [facility] Work Phone: 10-03-2005 measles, mumps and rubella virus vaccine Jean PHILLIPS-C Work Phone: [facility] Work Phone: 10-03-2005 poliovirus vaccine, inactivated Jean PHILLIPS-[employer] Work Phone: [facility] Work Phone: 05-27-2003 pneumococcal conjuga te vaccine, 13 valent Jean Adams PA-C Work Phone: [facility] Work Phone: 10-10-2002 diphtheria, tetanus toxoids and acellular pertussis vaccine Jean Adams PA-C Work Phone: [facility] Work Phone: 10-10-2002 diphtheria, tetanus toxoids and acellular pertussis vaccine, unspecified formulation Nurse [facility] Work Phone: [facility] Work Phone: 10-10-2002 varicella virus vaccine Jean Adams PA-C Work Phone: [facility] Work Phone: 05-27-2002 haemophilus influenz ae type b conjugate and Hepatitis B vaccine Nurse tr Work Phone: [facility] Work Phone: 05-27-2002 haemophilus influenz ae type b vaccine, HbOC conjugate Jean PHILLIPS-C Work Phone: [facility] Work Phone: 05-27-2002 haemophilus influenz ae type b vaccine, PRP-T conjugate Nurse tr Work Phone: [facility] Work Phone: 05-27-2002 hepatitis B vaccine, pediatric or pediatric/adolescent dosage Jean ARNOLDC Work Phone: [facility] Work Phone: 05-27-2002 measles, mumps and rubella virus vaccine Jean ARNOLDC Work Phone: [facility] Work Phone: 05-27-2002 poliovirus vaccine, inactivated Jean ARNOLDC Work Phone: [facility] Work Phone: 01-02-2002 diphtheria, tetanus toxoids and acellular pertussis vaccine Jean ARNOLDC Work Phone: [facility] Work Phone: 01-02-2002 haemophilus influenz ae type b vaccine, HbOC conjugate Jean PHILLIPS-C Work Phone: [facility] Work Phone: 01-02-2002 haemophilus influenz ae type b vaccine, PRP-T conjugate Nurse tr Work Phone: [facility] Work Phone: 01-02-2002 pneumococcal conjuga te vaccine, 13 valent Jean Césary PA-C Work Phone: [facility] Work Phone: 2001 diphtheria, tetanus toxoids and acellular pertussis vaccine Jean Athy PA-C Work Phone: [facility] Work Phone: 2001 haemophilus influenz ae type b vaccine, HbOC conjugate Jean Athy PA-C Work Phone: [facility] Work Phone: 2001 haemophilus influenz ae type b vaccine, PRP-T conjugate Nurse Wstr Work Phone: [facility] Work Phone: 2001 pneumococcal conjuga te vaccine, 13 valent Jean Césary PA-C Work Phone: [facility] Work Phone: 2001 poliovirus vaccine, inactivated Jean Adams PA-C Work Phone: [facility] Work Phone: 2001 diphtheria, tetanus toxoids and acellular pertussis vaccine Jean Athy PA-C Work Phone: [facility] Work Phone: 2001 haemophilus influenz ae type b vaccine, HbOC conjugate Jean Lindseyy PA-C Work Phone: [facility] Work Phone: 2001 haemophilus influenz ae type b vaccine, PRP-T conjugate Nurse Wstr Work Phone: [facility] Work Phone: 2001 hepatitis B vaccine, pediatric or pediatric/adolescent dosage Jean Athy PA-C Work Phone: [facility] Work Phone: 2001 pneumococcal conjuga te vaccine, 13 valent Jean Césary PA-C Work Phone: [facility] Work Phone: 2001 poliovirus vaccine, inactivated Jean Adams PA-C Work Phone: [facility] Work Phone: 2001 diphtheria, tetanus toxoids and acellular pertussis vaccine, unspecified formulation Nurse Wstr Work Phone: [facility] Work Phone: 2001 haemophilus influenz ae type b conjugate and Hepatitis B vaccine Nurse Wstr Work Phone: [facility] Work Phone: 2001 pneumococcal conjuga te vaccine, 7 valent Nurse Wstr Work Phone: [facility] Work Phone: 2001 hepatitis B vaccine, pediatric or pediatric/adolescent dosage Jean Adams PA-C Work Phone: [facility] Work Phone: Payers Date Payer Category Payer Self-pay [id number] 2024 Unknown [id number] 2022 Medicaid [id number] 2022 Private Health Insurance [id number] 2019 Unknown [employer] BLUE CARD PPO OOS [id number] 2019-Present [phone] [facility] [id number] [place] [address] PPO [id number] 2019 Unknown [id number] 2009 Unknown [id number] 2001 Unknown [id number] 32 Private Health Insurance [id number] Unknown [id number] Unknown [id number] Unknown [id number] 62 Unknown [id number] 62 Unknown [id number] 62 Social History Date Type Detail Facility Start: 05-07-2021 End: 07-15-2022 Tobacco smoking status NHIS Never smoked tobacco [facility] Start: 11-28-2021 End: 08-27-2024 Alcohol intake Lifetime non-drinker (finding) [facility] Start: 01-28-2021 History SDOH Alcohol Frequency 1 [facility] Start: 2000 Sex Assigned At Female C [facility] Start: 10-21-2019 End: 11-28-2021 Exposure to SARS-CoV-2 (event) Not sure [facility] Start: 07-15-2022 Tobacco use and exposure Smokeless tobacco non-user [facility] Start: 09-08-2022 Education 21 [facility] Start: 08-01-2022 [facility] Start: 05-07-2021 Tobacco smoking stat us NJIS Unknown if ever smoked [facility] Start: 12-14-2020 Non-smoker [facility] Start: 11-20-2019 Alcohol intake Not Asked [facility] Start: 02-13-2023 End: 11-26-2024 History of Social function [facility] Start: 02-13-2023 End: 11-26-2024 Tobacco use panel [facility] Work Phone: Start: 07-08-2012 National Score (1-10 0), lower number is lower risk 48 [facility] Start: 11-09-2020 Gender identity Identifies as female gender (finding) [facility] Start: 11-09-2020 Sexual orientation Heterosexual (fin ding) [facility] Start: 11-21-2024 Sex Female (finding) [facility] Goals Date Patient Goal Desired Activity /State Personal health goal Functional Status Date Assessment Result Facility 02-10-2023 Are you deaf, or do you have serious difficulty hearing No 02/10/2023 2:30 PM EDT Sofia Royal, [place] No [facility] 02-10-2023 Are you blind, or do you have serious difficulty seeing, even when wearing glasses No 02/10/2023 2:30 PM EDT Sofia Royal, [place] No [facility] 02-10-2023 Do you have serious difficulty walking or climbing stairs No 02/10/2023 2:30 PM EDT Sofia Royal, [place] No [facility] 02-10-2023 Do you have difficul ty dressing or bathing No 02/10/2023 2:30 PM EDT Sofia Royal, [place] No [facility] 02-10-2023 Because of a physica l, mental, or emotional condition, do you have difficulty doing errands alone such as visiting a physician's office or shopping No 02/10/2023 2:30 PM EDT Sofia Royal, [place] No [facility] Mental Status Date Assessment Result Facility 02-10-2023 Because of a physica l, mental, or emotional condition, do you have serious difficulty concentrating, remembering, or making decisions No 02/10/2023 2:30 PM EDSofia Chavira RN No [facility] Clinical Notes 05-01-2014 to 03-18-2025 Vonnie oBnd, KELLIERI - 03/18/2025 8:30 AM EDTTelephone Encounter - Sandra Vizcaino MD - 11/27/2024 11:05 AM EDTTelephone Encounter - Sandra Viczaino MD - 11/27/2024 11:05 AM EDT Note [...] PATIENT PRESENTS WITH AN IMPLANTABLE OR ATTACHED LOG POND WORKER: No RADIOLOGY DEPARTMENT: Ultrasound PERIPHERAL IV DATA: Not applicable SIGNED BY: Vonnie Bond RDMS March 18, 2025 9:16 AM documented in this encounter [facility] 03-18-2025 Note HNO ID: [id number] Author: VONNIE BOND RDMS Service: ? Author Type: Physical Therapist Clinic Director Type: Progress Notes Filed: 03/18/2025 09:16 Note [...] PATIENT PRESENTS WITH AN IMPLANTABLE OR ATTACHED LOG POND WORKER: No RADIOLOGY DEPARTMENT: Ultrasound PERIPHERAL IV DATA: Not applicable SIGNED BY: Vonnie Bond RDMS March 18, 2025 9:16 AM [facility] 11-27-2024 Telephone encount er Note Referral placed. No need for cytotec [facility] 11-27-2024 Miscellaneous Notes Formattin g of this note might be different from the original. Referral placed. No need for cytotec Linked order to appointment. Dr Godoy patient had one previous delivery that was a C Section. Do you want Cytotec ordered? documented in this encounter [facility] 11-27-2024 Telephone encount er Note Linked order to appointment. Dr Godoy patient had one previous delivery that was a C Section. Do you want Cytotec ordered? [facility] 11-26-2024 Instructions Sandra Vizcaino MD - 11/26/2024 4:04 PM EDT - Keep using condoms until your new IUD is placed. - Review the pamphlets on IUD options (Mirena and Paragard) and message us via Code42 with your choice. - Your IUD insertion [...] after your visit. documented in this encounter [facility] 11-26-2024 Note HNO ID: [id number] Author: SANDRA VIZCAINO MD Service: ? Author Type: Physician Type: Progress Notes Filed: 11/26/2024 16:04 Note Text: Roofer Assistant offered: Patient declines. Subjective The patient is [...] pills. - Previously prescribed spironolactone by a radiology special procedure tech for cystic acne but did not start [...] history and its implications. Attestation Recording using [employer] software for draft documentation of the visit was discussed with the patient/authorized electroplating sales representative; all questions welcomed and answered. Patient/authorized electroplating sales representative agreed to proceed Medical Decision Making: Problems: Low: Acute, uncomplicated illness or injury Moderate: New problem with uncertain prognosis Risk: Low: Low risk from testing/treatment (more content not included)... [facility] 11-26-2024 History of Presen t illness Narrative Roofer Assistant offered: Patient declines. Subjective The patient is [...] pills. - Previously prescribed spironolactone by a radiology special procedure tech for cystic acne but did not start [...] history and its implications. Attestation Recording using [employer] software for draft documentation of the visit was discussed with the patient/authorized electroplating sales representative; all questions welcomed and answered. Patient/authorized electroplating sales representative agreed to proceed Medical Decision Making: Problems: Low: Acute, uncomplicated illness or injury Moderate: New problem with uncertain prognosis Risk: Low: Low risk from testing/treatment Moderate: Drug management Medical Decision Making Level: 4 - Moderate Sandra Meeks MD documented in this encounter [facility] 11-26-2024 Telephone encount er Note Patient called back. Would like the 3:30 with DM. Sabrina Ayala RN [facility] 11-26-2024 Miscellaneous Notes Formattin g of this note might be different from the original. Patient called back. Would like the 3:30 with DM. Sabrina Ayala RN Left message for patient to call office. Please ask patient if she is okay with seeing either AG @ 11:00 am or DM could see her at 3:30 pm. Sabrina Ayala RN documented in this encounter [facility] 11-26-2024 Telephone encount er Note Left message for patient to call office. Please ask patient if she is okay with seeing either AG @ 11:00 am or DM could see her at 3:30 pm. Sabrina Ayala RN [facility] 11-15-2024 Evaluation note Diagnosis Onset Date Resolution Encounter to establish care acute November 15, 2024 9:23am Generalized anxiety disorder acute November 15, 2024 9:23am [facility] Work Phone: 1(274) 830-817902-13-2025 Telephone encounter Note* Telephone Encounter - Rosa Ferrera RN - 09/19/2024 9:43 AM EST Last OV 08/27/24. Request for 90 day supply. Requested Prescriptions Pending Prescriptions Disp Refills escitalopram oxalate (LEXAPRO) 20 mg tablet [Pharmacy Med Name: ESCITALOPRAM 20 MG TABLET] 90 tablet 1 Sig: TAKE 1 TABLET BY MOUTH EVERY DAY Rosa Ferrera RN [facility]02-13-2025 Miscellaneous Notes* Telephone Encounter - Rosa Ferrera RN - 09/19/2024 9:43 AM EST Last OV 08/27/24. Request for 90 day supply. Requested Prescriptions Pending Prescriptions Disp Refills escitalopram oxalate (LEXAPRO) 20 mg tablet [Pharmacy Med Name: ESCITALOPRAM 20 MG TABLET] 90 tablet 1 Sig: TAKE 1 TABLET BY MOUTH EVERY DAY Rosa Ferrera RN [facility] History of Present illness Narrative* Vonnie Bond [...] PATIENT PRESENTS WITH AN IMPLANTABLE OR ATTACHED LOG POND WORKER: No RADIOLOGY DEPARTMENT: Ultrasound PERIPHERAL IV DATA: Not applicable SIGNED BY: Vonnie Bond RDMS September 18, 2024 2:59 PM documented in this encounterKind[facility]-2025 NoteHNO ID: [id number] Author: VONNIE BOND RDMS Service: ? Author Type: Physical Therapist Clinic Director Type: Progress Notes Filed: 09/18/2024 15:00 Note [...] PATIENT PRESENTS WITH AN IMPLANTABLE OR ATTACHED LOG POND WORKER: No RADIOLOGY DEPARTMENT: Ultrasound PERIPHERAL IV DATA: Not applicable SIGNED BY: Vonnie Bond RDMS September 18, 2024 2:59 [facility]01-21-2025 Note* Addendum Note - Sandra Vizcaino MD - 08/27/2024 10:54 AM ESTAddended by: SANDRA GODOY on: 08/27/2024 10:54 AM Modules accepted: Orders [facility]01-21-2025 Miscellaneous Notes* Addendum Note - Sandra Vizcaino MD - 08/27/2024 10:54 AM ESTAddended by: SANDRA GODOY on: 08/27/2024 10:54 AM Modules accepted: Orders documented in this encounterKind[facility]-21-2025 NoteHNO ID: [id number] Author: SANDRA VIZCAINO MD Service: ? Author Type: Physician Type: Progress Notes Filed: 08/27/2024 10:54 Note Text: Roofer Assistant offered: Patient declinesChuyita Abrams is a 24 [...] L1 SAB0 IAB0 Ectopic0 Multiple0 Live Births1 Rn Pediatric History LMP: 08/17/2024 (Exact Date), Unknown Age at Menarche: Age at First : Age at Menopause: Rn Pediatric History Comments: Sexual Activity: Yes; Male Contraception: [...] discussed with the Patient or Patient's Authorized Spinner Operator. As applicable, any other physician, advance practice provider, medical student, or other health professional student that will be observing or involved in the sensitive examination for educational or training purposes was discussed with the Patient or Authorized Spinner Operator. The Patient or Authorized Spinner Operator has agreed to proceed with the sensitive [...] external genitalia normal, normal Bartholin's glands, urethra, [place]'s glands, no vulvar lesions, no cervical lesions, [...] year or sooner as needed Sandra Meeks [facility]01-21-2025 History of Present illness Narrative* Sandra Vizcaino MD - 08/27/2024 10:16 AM EST Roofer Assistant offered: Patient declines. Nestor is a 24 [...] L1 SAB0 IAB0 Ectopic0 Multiple0 Live Births1 Rn Pediatric History LMP: 08/17/2024 (Exact Date), Unknown Age at Menarche: Age at First : Age at Menopause: Rn Pediatric History Comments: Sexual Activity: Yes; Male Contraception: [...] discussed with the Patient or Patient's Authorized Spinner Operator. As applicable, any other physician, advance practice provider, medical student, or other health professional student that will be observing or involved in the sensitive examination for educational or training purposes was discussed with the Patient or Authorized Spinner Operator. The Patient or Authorized Spinner Operator has agreed to proceed with the sensitive [...] external genitalia normal, normal Bartholin's glands, urethra, [place]'s glands, no vulvar lesions, no cervical lesions, [...] needed Sandra Meeks MD documented in this encounterKind[facility]23 History of Present illness Narrative* Berenice Ovalle MD - 03/20/2023 11:30 AM EDT VISIT Nestor Lopez is a 22 year old year old here for visit. Delivery Summary: c-s ROS/ Recovery: Feeding: pumping for still in NICU problems: None for her Menses since delivery: n/a Menstrual pattern prior to : Regular periods [place] since delivery: Not resumed Depression: denies symptoms [...] external genitalia normal, normal Bartholin's glands, urethra, [place]'s glands, no vulvar lesions, no cervical lesions, [...] checked Berenice Ovalle MD documented in this encounterKind[facility]-2023 Instructions* Patient Instructions* Terra Herrera APRN.CNM - 02/13/2023 2:19 PM EDT BP 140/90 please call the office. Send a BP log on 02/17/23 If 160/110 will need readmitted. Here are some links for wonderful Providers here in the community and surrounding areas. Do not hesitate to contact their offices, many are offering virtual visits during this time. [phone]-[phone] - [place] Maternal Mental Health Hotline If you are in suicidal crisis, please call or text 1-992-159-TALK ( ) or visit the National Suicide Prevention Lifeline website. mchb.alta vista regional hospitala.gov [facility] Psychology, Psychiatry, Counseling Connect with therapist/ can do virtual visits [phone] Referral to the [facility] To schedule an appointment, please call the [facility] Appointment Line: [phone] option 1 [facility] - [place], [place] [address] [facility] [place] [address] [facility] [address] [place] [address] [facility] [address] [place] [address] [facility] [address] [place] [address] Lisbeth Sahu MD [address] [place] [address] [facility] [address] [facility] [place], [address] [place] [address] [facility] [address] [place] [address] [facility] Counseling Services [place] / [place] [phone]/ [phone] Sari Moreno [address] [facility] [address] [facility] [phone] Aves of Counseling and Mediation Sue / Mary [phone] Behavioral health services of [facility] [address] [place] [address]/ [place] [phone] Craig Burt, KASH, ESE Bu and Beyond Family Therapy Workshops, telehealth and at home visits. [phone] [facility] counseling [place] 20 locations [place], [place], [place], [place], [place], [place], [place], [facility], [place], [place], [place], [place], [place], [place], [facility], [place], [place] ,[facility], [place], [place],[facility], [facility] [place], [place], [facility], [facility], [place] www.Conject [phone] Psychotherapy resources outside of [facility] are listed below [facility] Fashion Movement Psychotherapy Web: https://www.Sonru.com/ Support International Online Provider Directory https://Trivnet/ [facility] https://GuestCentric Systems/ Iceberg for Behavioral Health and Wellness Web: https://Eat Latin/ Valencell for Effective Living Web: https://PF Management Services.VBI VaccineslivingGini.net/ LifeStance Web: https://Conservus International.Zostel/location/[facility]/[place]/ [facility] Web: https://www.[facility].org/ [facility] Web: https://1000jobboersen.de.org/ Recovery Resources Mental health and substance abuse help Web: https://www.OneFineMeal.Gravity R&D & RESOURCES Support International Direct peer support and connection to professional resources Non-Emergency Helpline Phone: / Text: [phone] Web: https://www..net/ Online Provider Directory: https://Trivnet/ Online Support Meetings: https://www..net/get-help/kjv-yyqvwo-hgjnpht-meetings/ MELANIE Baby and Home Health Administrator Services Web: https://www.ArabHardware/ MotherToCloudsnapby Expert information on medication use during and Text: [phone] Web: https://Beam..Gravity R&D/ NATIONAL REGISTRY FOR PSYCHIATRIC MEDICATIONS Currently studying the safety of antidepressants, ADHD medications and atypical antipsychotics taken during TO PARTICIPATE CALL TOLL-FREE: Web: https://womensmentalhealth.org/research/pregnancyregistry/ Support Groups: [facility]- Follow on facebook Baby Bistro support group led by [facility] department Resilient Mamas - Support Group [facility] Plazas.org The POEM support group [phone] Www.poemonline.org Follow on facebook - PEBBLES florez Online support meetings PSI https://www..net/get-help/vao-bkqshs-psafiyr-meetings/ [facility] mommy and me virtual support group 11:30-1pm Support for mothers and new babies and toddlers Sloan childbirth education: Childbirth @cc.org or call [phone] CRISIS: CRISIS HOTLINE [phone], 911 or go to the nearest [facility] [phone] / [facility] [phone] https://www.st. j[facility] south shorerb.org Crisis text line text the word HOME to [address] [facility] [address] [facility] [address] www.CBIT A/S Kacey Mahmood clinical counseling [address] [facility] [address] [place] [address] www.Next HeathcareriBe-Bound.Zostel [phone] Holding space psychotherapy Mylene Mcdonald MSW KNOCKOUT MACHINE OPERATOR-S [address] [facility] www.Clario Medical Imaging [phone]/ Isi [phone] They all offer virtual. All work with trauma Support groups Online support meetings PSI https://www..net/get-help/wly-eyjmie-wrscwhq-meetings/ Here are the support groups they offer: Support of parents of 1 to 4 years old children POEM ( Outreach and Encouragement for Moms) offers free support for mothers experiencing depression, anxiety, and other mood and anxiety disorders. Masks are recommended but not required. No pre-registration required. Babies in arms welcome. meetings now take place on the and Monday of each month Location: [facility] [address] [place] [address] Room 122 (library room) 7-8:00 p.m. When you enter the [facility] parking lot off of [address] the entrance door closest to our meeting room is on the front of the building toward the right. For those who are more comfortable with a virtual platform, POEM offers online support group options several days of the week. To register for an online group or to find out more about POEM, website at: https://mhaohio.org/get-help/vbutybwe-bluvda-stjyos/poem-services/ offer a confidential helpline: private Luxim group is called [facility] Here are the groups they offer: Traumatic childbirth resources: Http://pattch.org/ https://www.SellMyJersey.comnishaAttensa.Zostel/ documented in this encounterKindred Hospital [facility]07-10-2023 History of Present illness Narrative* Terra Herrera APRN.CNM - 02/13/2023 1:43 PM EDT EARLY VISIT Nestor Lopez is a 22 year old here for 1 week visit. Delivery Summary: Date: 02/07/2023 Time: 1:11am Sex: F Name: Shruthi Weight: 2# 15.3oz Outcome: PCS Details: HELLP Syndrome, Incision - low transverse, and Labor Anesthesia: General Delivered by: Areli Whitehead MD ([place]) Perineal repair: NA ROS: General: Denies any [...] issues Sleep: no sleep concerns, feels rested [place] since delivery: Not resumed Emotional support: Yes [...] needed Terra Herrera APRN.CNM documented in this encounterKindred Hospital [facility]ima07-07-2023 NoteHNO ID: [id number] Author: Mary Paul MD Service: Obstetrics Author [...] Lopez DATE: February 10, 2023 TIME: 6:02 [facility]07-06-2023 NoteHNO ID: [id number] Author: Tiana Burr RN Service: Nursing Author Type: Registered Nurse Type: Nursing Progress Note Filed: 02/09/2023 6:22 PM Note Text: Patient returned from [facility]07-06-2023 NoteHNO ID: [id number] Author: Mary Paul MD Service: Obstetrics Author [...] high Labs are improving. Subjectively Ms.Maisy Ever Lopez appears much better and is ambulating without [...] Is hopeful to have a pass to [place] [employer]ss today. Patient has no current complaints. Tolerating PO intake. Urinating without difficulty. Passing flatus. Pain well controlled with current regimen. Lochia decreasing (more content not included)...[facility]07-05-2023 NoteHNO ID: [id number] Author: Mary Paul MD Service: Obstetrics Author [...] indicated History of anxiet (more content not included)...[facility] 02-08-2023 NoteHNO ID: [id number] Author: Ros Mata MD Service: Obstetrics Author [...] 07, 2023 TIME: 10:13 PM PAGER/CONTACT #: [phone] ASTROPHYSICS TEACHER Service Pager: For questions or concerns regarding: -Obstetric patients or consults Mon-Mon-, please page #[phone] -Gynecology patients or consults Mon-Mon-, please page #[phone] -Postoperative patients Mon-Mon-, please directly page the resident caring for the patient After 5P and on holidays and weekends, please page #[phone] NoteHNO ID: [id number] Author: Nabil Contreras MD Service: Hospital Medicine [...] House Medicine can be reached at Pager: [phone]. Nabil Contreras MD Internal Medicine PGY-3 February 07, 2023 4:57 [facility]07-04-2023 NoteHNO ID: [id number] Author: Kimberly Rueda MD Service: Obstetrics Author Type: Resident Type: Progress Notes Filed: 02/07/2023 10:00 AM Note Text: Discussion had with nursing, 6AM lab drawn off the IV. Sodium value likely artificially low in this setting. Repeat sodium 8AM was 134. Will continue to monitor with 12PM labs. Kimberly Rueda MD OBGYN PGY-2 Pager #[phone] February 07, 2023 9:58 [facility]-2023 NoteHNO ID: [id number] Author: Perdo Pan APRN.HERB DOCTOR Service: Anesthesiology Author Type: Nurse Pain Management Nurse Practitioner Type: Anesthesia Procedure Notes Filed: 02/07/2023 1:15 AM Note Text: ANESTHESIOLOGY PROCEDURE NOTE Airway General Information Procedure Start Time/Medication Administration: 02/07/2023 1:06 AM Patient location during procedure: OR Timeout Performed Pre-procedure: timeout performed Consent Obtained: Yes Patient identity confirmed: arm band and patient Staffing HERB DOCTOR: Pedro Pan APRN.HERB DOCTOR Performed by: HERB DOCTOR Indications and Patient Condition Indications for airway management: anesthesia Preoxygenated: yes anesthesia circuit Patient position: sniffing Method: asleep Final Airway Details Final airway type: endotracheal airway Final Endotracheal Airway: ETT Cuffed: yes Successful intubation technique: video laryngoscopy Devices used: Spectrum Devices Endotracheal tube insertion site: oral Blade: Tomy Blade size: #3 ETT size (mm): 7.0 Measured from: lips Measurement (cm): 21 Placement verified by: chest auscultation and capnometry Cormack-Lehane Classification: grade I - full view of glottis Number of attempts at approach: 1 SIGNATURE: Pedro Pan APRN.HERB DOCTOR PATIENT NAME: Nestor Berryain DATE: February 07, 2023 TIME: 1:15 AM CSN: [id number] History and physical note Author Mary Arredondo [facility] February 06, 2023 10:04pm Note Date/Time February 06, 2023 8:13p [facility] Medical Records Department [address] [place] [address] OB Triage Physician Note 02/06/232008 MR#: [id number] Acct: [id number] Name: NESTOR LOPEZ Rep #:[id number] 1 : 2000 22 From: Mary Arredondo DO PCP: Dr. Betsy Coleman DO Status:REG CLI Y Location: LI014-1 HPI - General General Date of Service: [...] Good FM. No CADENA or vision changes. [facility] Medical History (Updated 02/06/23 @ 21:[address] Mary Arredondo, ) Lab test negative for COVID-19 virus Pilonidal cyst with abscess URI (upper respiratory infection) Home Medications escitalopram oxalate 5 mg tablet (Lexapro) 5 mg PO DAILY 01/07/21 [History Last Taken Unknown] trazodone 50 mg tablet 50 mg PO DAILY 01/07/21 [History Last Taken Unknown] ugwupctt-yzd-[id number] 1 mg tablet tab PO 02/04/23 [History Last Taken Unknown] hvhpknsy-wpt-Cp-FA 1 mg tablet tab PO 02/04/23 [History [...] and plan of care with MFM at [facility] who accepts transfer. Will send by life flight given acuity. (2) Abdominal pain affecting : 02/06/232203 <Electronically signed by Mary Arredondo DO> Date _ Mary Arredondo DO Cosigner Signature (if applicable): Date CC: Dr. Betsy Coleman DO; Dr. Mary Arredondo DO ~ Signed [facility] Work Phone: 1(453) 789-825107-03-2023 History of Present illness Narrative* Jean Hernandez MD - 02/06/2023 9:51 PM EDT Received call from Mary Arredondo, Roll Clamp Operator at [facility] regarding patient in urgent need of transport. [...] prior to transfer. Plan for transfer to [facility] for delivery and further management. L&D team at [facility] aware. Recommend repeat labs on admission at [facility] including CBC, CMP, coags, fibrinogen, ammonia, amylase, [...] 06, 2023 10:10 PM documented in this encounter[facility]23 Miscellaneous Notes* Quick Notes - Terra Herrera [...] hydrate to call or go to ED. Terra Herrera APRN.CNM documented in this encounterKindred Hospital [facility]ima07-03-2023 Instructions* Patient Instructions* Matilde Cortez Ma - 02/06/2023 9:25 AM EDT SEQUENTIAL SCREENINGS The [facility] offers sequential screenings for women who are [...] testing. It will require an appointment withour prosthetics lab technician. This is not an ultrasound performed [...] the above symptoms, contact our office at [phone] and ask to speak with anurse. After hours, you can call doctors registry at [phone] OR call [facility] at [phone] ask to have the doctor occupational health manager paged. If you consider this an emergency, dial 5-0-4 or go to your nearest emergency department. NEED HELP? Are you dealing with a violent or abusive relationship? Are you a victim of rape or sexual assult? Call [facility] ([place]) 24 hour Crisis Hotline: 826.456.2323 or 828-748-4965. MANUAL Your Guide to a Healthy manual is now on-line. Visit [email or web address] to download your free copy documented in this encounterKindred [facility]06-29-2023 Miscellaneous Notes* Telephone Encounter - Sabrina Ayala [...] advise. Luda Amin LPN documented in this encounterKindred Hospital [facility]ima06-28-2023 History of Present illness Narrative* Mimi Bills [...] severely ill: Yes Patient denies history of Guillain-[place] Syndrome (a severe paralytic illness): Yes Tdap Adacel injection was given without incident. See immunizations for details of immunizations administered today. VIS sheet provided: Yes Provider Shea Dykes APRN.CNM was present in office at time of injection. Mimi Bills RN documented in this encounterKindred Hospital [facility]ima06-28-2023 Miscellaneous Notes* Telephone Encounter - Terra Herrera APRN.CNM - 02/01/2023 10:45 AM EDT Signed. Terra Herrera APRN.CNM * Telephone Encounter - Mimi Bills RN - 02/01/2023 10:34 AM EDT Patient has nurse visit today. Please file orders. Mimi Bills RN documented in this encounterKindred [facility]06-27-2023 Miscellaneous Notes* Quick Notes - Terra Herrera [...] needed Terra Herrera APRN.CNM documented in this encounterKindred [facility]06-26-2023 Miscellaneous Notes* Telephone Encounter - Shea Dykes [...] scheduling. Shea Dykes APRN.CNM documented in this encounterKindred Hospital [facility]ima06-26-2023 Instructions* Patient Instructions* Mark Riojas Cma - 01/30/2023 11:09 AM EDT SEQUENTIAL SCREENINGS The [facility] offers sequential screenings for women who are [...] testing. It will require an appointment withour prosthetics lab technician. This is not an ultrasound performed [...] the above symptoms, contact our office at [phone] and ask to speak with anurse. After hours, you can call doctors registry at [phone] OR call [facility] at [phone] ask to have the doctor occupational health manager paged. If you consider this an emergency, dial 9-1-5 or go to your nearest emergency department. NEED HELP? Are you dealing with a violent or abusive relationship? Are you a victim of rape or sexual assult? Call [facility] ([place]) 24 hour Crisis Hotline: 618.273.2969 or 354-014-0445. MANUAL Your Guide to a Healthy manual is now on-line. Visit [email or web address] to download your free copy documented in this encounterKindred Hospital [facility]ima06-20-2023 Miscellaneous Notes* Telephone Encounter - Terra Herrera [...] be 27wks 4days, I sent pt a Code42 msg to call to be moved to Monday so she can get rhogam at that visit. Patient will also need an order for a type and screen filed. Order pended. Betsy Rosa MA documented in this encounterKindred Hospital [facility]ima05-02-2023 Miscellaneous Notes* Result Encounter Note - Berenice Ovalle MD - 12/06/2022 4:05 PM EDT Anatomy ultrasound reviewed. No abnormalities identified. Follow up as clinically indicated. Pleaseplace copy in ob chart. Berenice Ovalle MD documented in this encounterKindred Hospital [facility]ima05-02-2023 Miscellaneous Notes* Quick Notes - Terra Herrera [...] Level: 4 - Moderate documented in this encounterKindred Hospital [facility]ima05-02-2023 Instructions* Patient Instructions* Terra Herrera APRN.CNM - [...] the above symptoms, contact our office at [phone] and ask to speak with anurse. After hours, you can call doctors registry at [phone] OR call [facility] at [phone] ask to have the doctor occupational health manager paged. If you consider this an emergency, dial 5-1-8 or go to your nearest emergency department. NEED HELP? Are you dealing with a violent or abusive relationship? Are you a victim of rape or sexual assult? Call [facility] ([place]) 24 hour Crisis Hotline: 202.779.6837 or 914-775-8172. MANUAL Your Guide to a Healthy manual is now on-line. Visit [email or web address] to download your free copy documented in this encounterKindred Hospital [facility]ima03-28-2023 Miscellaneous Notes* Quick Notes - Partha Cornelius MD - 11/01/2022 10:32 AM EDT KJ - No VB/LOF/ctxs. A&P: Schedule anatomy US AFP ordered Partha Cornelius MD documented in this encounterKindred Hospital [facility]ima03-28-2023 Instructions* Patient Instructions* Josee Conroy Ma - 11/01/2022 10:10 AM EDT SEQUENTIAL SCREENINGS The [facility] offers sequential screenings for women who are [...] testing. It will require an appointment withour prosthetics lab technician. This is not an ultrasound performed [...] the above symptoms, contact our office at [phone] and ask to speak with anurse. After hours, you can call doctors registry at [phone] OR call [facility] at [phone] ask to have the doctor occupational health manager paged. If you consider this an emergency, dial or go to your nearest emergency department. NEED HELP? Are you dealing with a violent or abusive relationship? Are you a victim of rape or sexual assult? Call [facility] ([place]) 24 hour Crisis Hotline: 269.616.8220 or 643-765-2060. MANUAL Your Guide to a Healthy manual is now on-line. Visit [email or web address] to download your free copy documented in this encounterKindred Hospital [facility]03-09-2023 Miscellaneous Notes* Telephone Encounter - Ana Flores RN - 10/13/2022 11:17 AM EST Called Nestor Lopez and identified by name and date of . Nestor Lopez was informed of negative Non-Invasive Testing (NIPT) [...] Provider. Ana Flores RN documented in this encounterKindred Hospital [facility]03-06-2023 History of Past illness Narrative* Problem Noted [...] of this encounter (statuses as of 02/15/2023) [facility] History of Past illness Narrative* Problem Noted [...] of this encounter (statuses as of 03/20/2023) [facility] Miscellaneous Notes* Quick Notes - Berenice Ovalle MD - 10/06/2022 10:13 AM EST RR- No VB/LOF. Nausea improving. Taking PNV. D/w her aneuplody screening and limitations. Desires NIPT and CF screen. F/u in 4 weeks or prn. Berenice Ovalle MD documented in this encounterKindred Hospital [facility]03-02-2023 Instructions* Patient Instructions* Jeanine Thomas Ma - 10/06/2022 9:46 AM EST SEQUENTIAL SCREENINGS The [facility] offers sequential screenings for women who are [...] testing. It will require an appointment withour prosthetics lab technician. This is not an ultrasound performed [...] the above symptoms, contact our office at [phone] and ask to speak with anurse. After hours, you can call [facility] registry at [phone] OR call [facility] at [phone] ask to have the doctor occupational health manager paged. If you consider this an emergency, dial 6-0-0 or go to your nearest emergency department. NEED HELP? Are you dealing with a violent or abusive relationship? Are you a victim of rape or sexual assult? Call [facility] ([place]) 24 hour Crisis Hotline: 946.805.9300 or 778-554-8704. MANUAL Your Guide to a Healthy manual is now on-line. Visit [email or web address] to download your free copy documented in this encounterKindred Hospital [facility]ima02-02-2023 History of Present illness Narrative* Berenice Ovalle [...] with Folic acid: Yes Occupation: works at [employer]: No Would refuse blood transfusion if medically necessary: No No weight on file for this encounter. Patient BMI over 30? No Marital Status:Co-habitating Partner: Name: Marciano Age: 22 Occupation: [employer] employee Gender: male History of STDs: None [...] prn. Berenice Ovalle MD documented in this encounterKindred Hospital [facility]02-02-2023 Instructions* Patient Instructions* Jeanine Thomas Ma - 09/08/2022 10:29 AM EST Please select the following link to access the [facility] Your Guide to a Healthy . [email or web address] documented in this encounterKindred Hospital [facility]ima02-02-2023 Miscellaneous Notes* Quick Notes - April Schmidt [...] given to patient.Eleni JARAMILLO documented in this encounterKindred Hospital [facility]01-10-2023 Miscellaneous Notes* Telephone Encounter - Mimi Bills RN - 08/16/2022 11:01 AM EST PNOB scheduled. Mimi Bills RN * Telephone Encounter - Betsy Rosa MA - 08/16/2022 9:00 AM EST Attempted to contact patient to schedule PNOB, voicemail box was full. Code42 message sent to patient to call office to schedule. Betsy Rosa MA documented in this encounterKindred Hospital [facility]ima12-12-2022 History of Present illness Narrative* Bello Navarro [...] entered by the nurse and reviewed by fl Nursing Notes: Gladys Maza LPN 07/15/2022 9:29 [...] Bello Navarro III, MD documented in this encounterKindred [facility]12-09-2022 Nurse Note* Gladys Maza, SENIOR WIND TURBINE TECHNICIAN - 07/15/2022 9:28 AM EST REVIEW OF [...] none Gladys Maza LPN documented in this encounterKindred Hospital [facility]07-12-2022 History of Present illness Narrative* Dinorah Smith APRN.PARTY CHIEF - 02/15/2022 9:27 AM EDT Nestor is a 21 year old who presents for an annual gynecologic exam without complaints. 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 [...] L0 SAB0 IAB0 Ectopic0 Multiple0 Live Births0 Rn Pediatric History LMP: 01/27/2022, Having periods Age at Menarche: Age at First : Age at Menopause: Rn Pediatric History Comments: Sexual Activity: Yes; Male Contraception: [...] needed. Dinorah Smith APRN.LOGAN documented in this encounterKindred Hospital [facility]ima04-24-2022 History of Present illness Narrative* Jean Adams PA-C - 11/28/2021 8:56 AM EDT This note was created using [employer]. Subjective Nestor Lopez is a 21 year [...] Take 1 tablet by mouth once daily. rkpzwpjs-abhcinwfd-cegexjtrhiuiat (CORTISPORIN) 3.5-10,000-1 mg/mL-unit/mL-% otic suspension Use 3 [...] days. Jean Adams PA-C documented in this encounterKindred [facility]04-26-2017 History of Past illness Narrative* Problem Noted [...] of this encounter (statuses as of 09/08/2022) [facility] History of Past illness Narrative* Problem Noted [...] of this encounter (statuses as of 10/06/2022) [facility] of Past illness Narrative* Problem Noted [...] of this encounter (statuses as of 10/13/2022) [facility] History of Past illness Narrative* Problem Noted [...] of this encounter (statuses as of 11/01/2022) [facility] of Past illness Narrative* Problem Noted [...] of this encounter (statuses as of 12/06/2022) [facility] History of Past illness Narrative* Problem Noted [...] of this encounter (statuses as of 12/07/2022) [facility] History of Past illness Narrative* Problem Noted [...] of this encounter (statuses as of 01/25/2023) [facility] of Past illness Narrative* Problem Noted [...] of this encounter (statuses as of 01/31/2023) [facility] of Past illness Narrative* Problem Noted [...] of this encounter (statuses as of 02/01/2023) [place] [address]-26-2017 History of Past illness Narrative* Problem Noted [...] of this encounter (statuses as of 02/01/2023) [address]26-2017 History of Past illness Narrative* Problem [...] of this encounter (statuses as of 02/02/2023) [facility] of Past illness Narrative* Problem Noted [...] of this encounter (statuses as of 02/06/2023) [facility] of Past illness Narrative* Problem Noted [...] of this encounter (statuses as of 02/07/2023) [facility] of [facility] Narrative* Problem Noted Date Resolved Date Back pain 05/01/2014 12/19/2014 Acne 05/01/2014 03/17/2017 Anxiety 05/11/2013 03/17/2017 Headache(784.0) 05/11/2013 03/17/2017 Fracture of metacarpal base, first, left hand, c losed 08/31/2010 01/31/2013 Knee pain 05/20/2010 02/26/2013 Abdominal wall mass 12/21/2009 11/19/2012 documented as of this encounter (statuses as of 11/28/2021) [facility] of [facility] illness Narrative* Problem Noted Date Resolved Date Back pain 05/01/2014 12/19/2014 Acne 05/01/2014 03/17/2017 Anxiety 05/11/2013 03/17/2017 Headache(784.0) 05/11/2013 03/17/2017 Fracture of metacarpal base, first, left hand, c losed 08/31/2010 01/31/2013 Knee pain 05/20/2010 02/26/2013 Abdominal wall mass 12/21/2009 11/19/2012 documented as of this encounter (statuses as of 02/15/2022) [facility] of [facility] illness Narrative* Problem Noted Date Resolved Date Back pain 05/01/2014 12/19/2014 Acne 05/01/2014 03/17/2017 Anxiety 05/11/2013 03/17/2017 Headache(784.0) 05/11/2013 03/17/2017 Fracture of metacarpal base, first, left hand, c losed 08/31/2010 01/31/2013 Knee pain 05/20/2010 02/26/2013 Abdominal wall mass 12/21/2009 11/19/2012 documented as of this encounter (statuses as of 07/18/2022) [facility] of [facility] illness Narrative* Problem Noted Date Resolved Date Back pain 05/01/2014 12/19/2014 Acne 05/01/2014 03/17/2017 Anxiety 05/11/2013 03/17/2017 Headache(784.0) 05/11/2013 03/17/2017 Fracture of metacarpal base, first, left hand, c losed 08/31/2010 01/31/2013 Knee pain 05/20/2010 02/26/2013 Abdominal wall mass 12/21/2009 11/19/2012 documented as of this encounter (statuses as of 08/16/2022) [facility] Diagnosis Other infective acute otitis externa of left ear- Primary documented in this encounter [facility]* Diagnosis Encounter for gynecological examination without abnormal finding- Primary Routine gynecological examination Surveillance for control, oral contraceptives Surveillance of previously prescribed contraceptive pill documented in this encounter [facility]* Diagnosis Mass of upper inner quadrant of left breast- Primary documented in this [facility]* Diagnosis Supervision of normal first , antepartum- Primary History of anxiety Personal history of other mental disorder Patient request for diagnostic testing Other specified examination documented in this [facility]* Diagnosis Encounter for care in first trimester of first - Primary Encounter for supervision of normal first in first trimester Supervision of normal first 7 weeks gestation of state, incidental documented in this encounter [facility]* Diagnosis 11 weeks gestation of - Primary state, incidental Patient request for diagnostic testing Other specified examination Encounter for supervision of normal first in first trimester Supervision of normal first documented [facility]* Diagnosis Encounter for supervision of normal first in second trimester- Primary Supervision of normal first 15 weeks gestation of state, incidental documented in this [facility]* Diagnosis 20 weeks gestation of - Primary state, incidental documented in this encounter [facility] note* Diagnosis Encounter for anatomic survey- Primary Encounter for supervision of normal first in first trimester Supervision of normal first 20 weeks gestation of state, incidental documented in this encounter [facility] note* Diagnosis Rh negative state in antepartum period, first trimester- Primary documented in this encounter [facility] note* Diagnosis Abnormal glucose in , antepartum- Primary Abnormal maternal glucose tolerance, antepartum documented in this encounter [facility] note* Diagnosis 28 weeks gestation of - Primary state, incidental documented in this encounter [facility] note* Diagnosis 28 weeks gestation of - Primary state, incidental documented in this encounter [facility] note* Diagnosis Rh negative state in antepartum period- Primary Rhesus isoimmunization affecting management of mother, antepartum condition Need for vaccination Need for prophylactic vaccination and inoculation against unspecified single disease documented in this encounter [facility] note* Diagnosis Acute bilateral low back pain without sciatica- Primary documented in this encounter [facility] noteNo assessment information availableWGreene Memorial [facility] Work Phone: Evaluation note* Diagnosis 29 weeks gestation of - Primary state, incidental documented in this encounter [facility] note* Diagnosis Onset Date Resolution Status 28 weeks gestation of acute Abdominal pain affecting acute 29 weeks gestation of acute Abdominal pain affecting [facility] Work Phone: Evaluation note* Diagnosis Vaginal odor Unspecified symptom associated with female genital organs Acute vaginitis Vaginitis and vulvovaginitis, unspecified documented in this encounter [facility]* Diagnosis Dizziness- Primary Dizziness and giddiness documented [facility] this [facility]* Diagnosis care and examination- Primary Routine follow-up Encounter for screening for lipoid disorders Screening for lipoid disorders documented in this encounter [facility] note* Diagnosis Encounter for gynecological examination (general) (routine) without abnormal findings- Primary Anxiety neurosis Anxiety state, unspecified Mass of upper inner quadrant of left breast documented in this encounter [facility] note* Diagnosis Mass of upper inner quadrant of left breast documented in this encounter [facility]* Diagnosis Anxiety neurosis Anxiety state, unspecified documented in this encounter [facility]* Diagnosis Solitary cyst of left breast- Primary Solitary cyst of breast [facility]* Diagnosis Cyst of left breast- Primary Encounter for initial prescription of intrauterine contraceptive device (IUD) Family history of malignant neoplasm of breast [facility]* Diagnosis Encounter for initial prescription of intrauterine contraceptive device (IUD)- Primary [facility]* Diagnosis Solitary cyst of left breast Solitary cyst of breast documented in this encounter [facility] for referral (narrative)* Diagnostic Procedure Only (Routine) - Authorized Specialty Diagnoses / Procedures Referred By Contac t Referred To Contact [facility] Diagnoses Mass of upper inner quadrant of left breast Procedures US BREAST LTD LT US BREAST UNI REAL TIME WITH IMAGE LIMITED Bello Navarro MD [address] [place] [id number] [facility] [address] [place] [address] Referral ID Status Reason Start Date Expiration Date Visits Requested Visits Authorized [id number] Authorized Auto-Generat ed Referral 07/15/2022 08/14/2023 1 1 [facility] for referral (narrative)* Diagnostic Procedure Only (Routine) - Authorized Specialty Diagnoses / Procedures Referred By Contac t Referred To Contact [facility] Diagnoses Mass of upper inner quadrant of left breast Procedures US BREAST LTD LEFT US BREAST UNI REAL TIME WITH IMAGE LIMITED Sandra Vizcaino MD [address] [place] [address] [facility] [address] [place] [address] Referral ID Status Reason Start Date Expiration Date Visits Requested Visits Authorized [id number] Authorized Auto-Generat ed Referral 08/27/2024 09/26/2025 1 1 [facility] for referral (narrative)No reason for referral information availableWGreene Memorial Hospital Work Phone: Reason for visit Narrative* Diagnostic Procedure Only (Routine) - Closed Specialty Diagnoses / Procedures Referred By Michaela araiza Referred To Contact [facility] Diagnoses Mass of upper inner quadrant of left breast Procedures US BREAST LTD LEFT US BREAST UNI REAL TIME WITH IMAGE LIMITED Sandra Vizcaino MD [address] [place] [address] Phone: tel: fax: [facility] [address] [place] [address] Referral ID Status Reason Start Date Expiration Date V isits Requested Visits Authorized [id number] Closed Auto-Generate d Referral 08/27/2024 09/26/2025 1 1 [facility] Advance Directives No Advanced Directives Records FoundDocuments on File Type Date Recorded Patient Spinner Operator Expl anation Advance Directive(s) Advance Directive Response Recorded Date/ Time Living Will No December 14, 2020 8 :07am Power of Golf Shoe Spike Assembler No December 14, 2020 8:07am Summary Purpose [...] PM EDT Problem Noted Date Diagnosed Date [place] Engineering Manager 02/10/2023 Reason for Referral Specialty Diagnoses / Procedures Referred By Michaela araiza Referred To Contact [facility] Diagnoses 11 weeks gestation of Patient request for diagnostic testing Encounter for supervision of normal first in first trimester Procedures CYSTIC FIBROSIS PATHOGENIC VARIANT ANALYSIS CFTR GENE ANALYSIS COMMON VARIANTS Berenice Ovalle MD [address] [place] [address] [facility] [address] [place] [address] Referral ID Status Reason Start Date Expiration Date Visits Requested Visits Authorized [id number] Pending Review PCP Requested Referral Auto-Generate d Referral 10/06/2022 01/04/2023 1 1 Specialty Diagnoses / Procedures Referred By Michaela t Referred To Contact [facility] Diagnoses 11 weeks gestation of Patient request for diagnostic testing Encounter for supervision of normal first in first trimester Procedures OBSTETRIC ULTRASOUND WHI US PREG UTERUS AFTER 1ST TRIMEST GESTATION Berenice Ovalle MD [address] 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, [...] or prosecute any alcohol or drug abuse patient.[facility] the event this information is protected by the Federal Confidentiality of Alcohol and Drug Abuse Patient Records regulations: The Federal rules restrict any use of the information to criminally investigate or prosecute any alcohol or drug abuse patient.[facility]imaIn the event this information is protected by the Federal Confidentiality of Alcohol and Drug Abuse Patient Records regulations: The Federal rules restrict any use of the information to criminally investigate or prosecute any alcohol or drug abuse patient.[facility]imaIn the event this information is protected by the Federal Confidentiality of Alcohol and Drug Abuse Patient Records regulations: The Federal rules restrict any use of the information to criminally investigate or prosecute any alcohol or drug abuse patient.[facility]imaIn the event this information is protected by the Federal Confidentiality of Alcohol and Drug Abuse Patient Records regulations: The Federal rules restrict any use of the information to criminally investigate or prosecute any alcohol or drug abuse patient.[facility]imaIn the event this information is protected by the Federal Confidentiality of Alcohol and Drug Abuse Patient Records regulations: The Federal rules restrict any use of the information to criminally investigate or prosecute any alcohol or drug abuse patient.[facility]imaIn the event this information is protected by the Federal Confidentiality of Alcohol and Drug Abuse Patient Records regulations: The Federal rules restrict any use of the information to criminally investigate or prosecute any alcohol or drug abuse patient.[facility]imaIn the event this information is protected by the Federal Confidentiality of Alcohol and Drug Abuse Patient Records regulations: The Federal rules restrict any use of the information to criminally investigate or prosecute any alcohol or drug abuse patient.[facility]imaIn the event this information is protected by the Federal Confidentiality of Alcohol and Drug Abuse Patient Records regulations: The Federal rules restrict any use of the information to criminally investigate or prosecute any alcohol or drug abuse patient.[facility]imaIn the event this information is protected by the Federal Confidentiality of Alcohol and Drug Abuse Patient Records regulations: The Federal rules restrict any use of the information to criminally investigate or prosecute any alcohol or drug abuse patient.[facility]imaIn the event this information is protected by the Federal Confidentiality of Alcohol and Drug Abuse Patient Records regulations: The Federal rules restrict any use of the information to criminally investigate or prosecute any alcohol or drug abuse patient.[facility]imaIn the event this information is protected by the Federal Confidentiality of Alcohol and Drug Abuse Patient Records regulations: The Federal rules restrict any use of the information to criminally investigate or prosecute any alcohol or drug abuse patient.[facility]imaIn the event this information is protected by the Federal Confidentiality of Alcohol and Drug Abuse Patient Records regulations: The Federal rules restrict any use of the information to criminally investigate or prosecute any alcohol or drug abuse patient.[facility]imaIn the event this information is protected by the Federal Confidentiality of Alcohol and Drug Abuse Patient Records regulations: The Federal rules restrict any use of the information to criminally investigate or prosecute any alcohol or drug abuse patient.[facility]imaIn the event this information is protected by the Federal Confidentiality of Alcohol and Drug Abuse Patient Records regulations: The Federal rules restrict any use of the information to criminally investigate or prosecute any alcohol or drug abuse patient.[facility]imaIn the event this information is protected by the Federal Confidentiality of Alcohol and Drug Abuse Patient Records regulations: The Federal rules restrict any use of the information to criminally investigate or prosecute any alcohol or drug abuse patient.[facility]imaIn the event this information is protected by the Federal Confidentiality of Alcohol and Drug Abuse Patient Records regulations: The Federal rules restrict any use of the information to criminally investigate or prosecute any alcohol or drug abuse patient.[facility]imaIn the event this information is protected by the Federal Confidentiality of Alcohol and Drug Abuse Patient Records regulations: The Federal rules restrict any use of the information to criminally investigate or prosecute any alcohol or drug abuse patient.[facility]imaIn the event this information is protected by the Federal Confidentiality of Alcohol and Drug Abuse Patient Records regulations: The Federal rules restrict any use of the information to criminally investigate or prosecute any alcohol or drug abuse patient.[facility]imaIn the event this information is protected by the Federal Confidentiality of Alcohol and Drug Abuse Patient Records regulations: The Federal rules restrict any use of the information to criminally investigate or prosecute any alcohol or drug abuse patient.[facility]imaIn the event this information is protected by the Federal Confidentiality of Alcohol and Drug Abuse Patient Records regulations: The Federal rules restrict any use of the information to criminally investigate or prosecute any alcohol or drug abuse patient.[facility]imaIn the event this information is protected by the Federal Confidentiality of Alcohol and Drug Abuse Patient Records regulations: The Federal rules restrict any use of the information to criminally investigate or prosecute any alcohol or drug abuse patient.[facility]imaIn the event this information is protected by the Federal Confidentiality of Alcohol and Drug Abuse Patient Records regulations: The Federal rules restrict any use of the information to criminally investigate or prosecute any alcohol or drug abuse patient.[facility]imaIn the event this information is protected by the Federal Confidentiality of Alcohol and Drug Abuse Patient Records regulations: The Federal rules restrict any use of the information to criminally investigate or prosecute any alcohol or drug abuse patient.[facility]imaIn the event this information is protected by the Federal Confidentiality of Alcohol and Drug Abuse Patient Records regulations: The Federal rules restrict any use of the information to criminally investigate or prosecute any alcohol or drug abuse patient.[facility]imaIn the event this information is protected by the Federal Confidentiality of Alcohol and Drug Abuse Patient Records regulations: The Federal rules restrict any use of the information to criminally investigate or prosecute any alcohol or drug abuse patient.[facility]imaIn the event this information is protected by the Federal Confidentiality of Alcohol and Drug Abuse Patient Records regulations: The Federal rules restrict any use of the information to criminally investigate or prosecute any alcohol or drug abuse patient.[facility]imaIn the event this information is protected by the Federal Confidentiality of Alcohol and Drug Abuse Patient Records regulations: The Federal rules restrict any use of the information to criminally investigate or prosecute any alcohol or drug abuse patient.[facility]imaIn the event this information is protected by the Federal Confidentiality of Alcohol and Drug Abuse Patient Records regulations: The Federal rules restrict any use of the information to criminally investigate or prosecute any alcohol or drug abuse patient.[facility] Reason for Visit (unrecogniz ed section and [...] Referred By Contac t Referred To Contact [facility] Diagnoses 11 weeks gestation of Patient request for diagnostic testing Encounter for supervision of normal first in first trimester Procedures OBSTETRIC ULTRASOUND WHI US PREG UTERUS AFTER 1ST TRIMEST GESTATION Berenice Ovalle MD [address] [place] [address] [facility] [address] [place] [address] Referral ID Status Reason Start Date Expiration Date V isits Requested Visits Authorized [id number] Closed Auto-Generate d Referral 10/06/2022 10/06/2023 1 [...] IMAGE LIMITED Sandra Vizcaino MD [address] [place] [address] Phone: tel: fax: [facility] [address] [place] [address] Referral ID Status Reason Start Date Expiration Date V isits Requested Visits Authorized [id number] Closed Auto-Generate d Referral 03/18/2025 10/18/2025 1 1 INFORMATION SOURCE (unrecogn ized section and content) DATE CREATED AUTHOR 03/10/2022 [place] DATE CREATED AUTHOR AUTHOR'S ORGANIZ ATION 02/07/2023 [employer] DATE CREATED AUTHOR AUTHOR'S ORGANIZ ATION 02/12/2023 [facility] DATE CREATED AUTHOR AUTHOR'S ORGANIZ ATION 02/18/[address] [facility] DATE CREATED AUTHOR AUTHOR'S ORGANIZ ATION 03/19/2025 [facility] Care Teams (unrecognized sec tion and content) Team Status: Active Member Role Status Dates Guerda Connelly MD Family Provider Active Dr. Betsy Coleman , DO Primary Care Provider Active Team Status: Inactive Member Role Status Dates Dr. Betsy Coleman , Primary Care Provider Active Terra Herrera CNM Attending Provider, Referring Prov ider Active Team Status: Inactive Member Role Status Dates Dr. Betsy Coleman DO Primary Care Provider Active Dr. 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 [facility] [employer] provides no warranty or guarantee of the accuracy or completeness of information in this document.
[2025-05-01 23:10] LABS: Color, Urine Straw (Yellow); Glucose, Dipstick Normal (Normal); Ketone-Dipstick Negative (Negative); Leukocyte Esterase-Dipstick 25 /ul (Negative); Nitrite-Dipstick Negative (Negative); Occult Blood-Urine 10 /ul (Negative); Protein-Dipstick Negative (Negative); Specific Gravity, Urine 1.005 (1.002-1.030); Urine Bilirubin Dipstick Negative (Negative)
[2025-05-01 23:28] LABS: Red Blood Cells-Urine 0-5 SEEN /hpf (0-5); Squamous Epithelial Cells - UA 0-5 SEEN /hpf (5-10)
== END | disposition home or self-care (01) ==
PROVIDERS: PCP Internal Medicine; Referring Provider Nurse Practitioner Family; Visit Provider Nurse Practitioner Family
DX: R69 Illness, unspecified (principal)
CPT/HCPCS: 81001; 87077; 87086; 87088; 87186

== ENCOUNTER → 2025-07-11 | Outpatient (CLI) | payer OTHER, MEDICAID, SELFPAY ==
--- OUTSIDE RECORDS SUMMARY | 2025-07-11 09:15 | XMS RPT_ITS | CCD ---
Author Organization [facility] Care Team Providers Care Ui Application Developer Name Role Phone Unavailable Primary Care Provider UnavailTemi Lafleur MD Primary Care Provider PROVIDER, UNKNOWN Attending Unavailable PROVIDER, UNKNOWN Admitting Unavailable MILES, ARELI Attending Unavailable DOLIN, JEAN Admitting Unavailable DOLIN, JEAN Consulting Unavailable Unavailable Primary Care Provider Unavailanalilia e Unavailable Primary Care Provider UnavailDr. Betsy Monroy DO Primary Care Provider Dr. Betsy Coleman DO Referring Provider Dr. Franklin Brown MD Attending Provider [phone] Dr. Franklin Brown MD Primary Care Provider Dr. Franklin Brown MD Referring Provider [phone] NEWAYNE LORARE Referring Unavail able NESANDRA LORA Attending Unavail able SELF Referring Unavailable NEWILMER GODOY SANDRA Referring Unavail able WAYNE VIZCAINORE Attending Unavail able Dr. Franklin Brown MD Primary Care Physician Dr. Franklin Brown MD Attending Physician [phone] Dr. Franklin Brown MD Referring Provider [phone] Ungerer BAG PRINTER-CTerra Attending Physician Ungerer BAG PRINTER-C, Terra Referring Provider [phone] Franklin Brown Primary Care Unavailable Ungerer Terra Attending Unavailable Ungerer, Terra Referring Unavailable Oleghe, Efewongbe Primary Care Unavailable Oleghe, Efewongbe Attending Unavailable Oleghe, Efewongbe Referring Unavailable Oleghe, Efewongbe Primary Care Unavailable Oleghe, Efewongbe Attending Unavailable Oleghe, Efewongbe Referring Unavailable Oleghe, Efewongbe Primary Care Unavailable Ungerer, Terra Attending Unavailable Oleghe, Efewongbe Referring Unavailable Kruepke, Betsy Primary Care Unavailable Krcesarpke, Betsy Referring Unavailable Oleghe, Efewongbe Attending Unavailable Allergies Allergy Classification Reported Allergen(s) Allergy Type Date of Onset Reaction(s) Facility (20 sources) Seasonal allergy; Translations: [SEASONAL ALLERGIES] Propensity to adverse reactions Other: See Comments [facility] Work Phone: (1 source) Seasonal Allergies: Uncoded; Translations: [Seasonal Allergies: Uncoded] Propensity to adverse reactions (disorder) 5 [facility] Repository Medications Current Medications Medication Drug Class(es) Dates Sig (Normalized) Sig (Original) busPIRone hydrochloride 10 mg oral tablet (11 sources) Start: 02-14-2025 take 1 tablet by mouth twice daily Start: 11-15-2024 End: 02-14-2025 take 1 tablet by mouth twice daily Buspirone 5 mg tablet Discontinued 5 mg PO TWICE A DAY 180 0 December 16, 2024 1:44pm February 14, 2025 10:39am ergocalciferol, vitamin D2, (VITAMIN D2 ORAL) (4 sources) Start: 11-15-2024 ergocalciferol, vitamin D2, (VITAMIN D2 ORAL) 11/15/2024 Active hydrocortisone 10 mg/ml / neomycin 3.5 mg/ml / polymyxin b [id number] unt/ml otic suspension (1 source) Aminoglycoside Antibacterial, Polymyxin-class Antibacterial, Corticosteroid Start: 11-28-2021 End: 12-05-2021 neomycin-polymyxin- hydrocortisone (CORTISPORIN) 3.5-10,000-1 mg/mL-unit/mL-% otic suspension Use 3 Drops in the left ear three times daily for 7 days. 10 mL 0 11/28/2021 12/05/2021 Active Comment on above: Use 3 Drops in the l eft ear three times daily for 7 days. nitrofurantoin, macrocrystals 25 mg / nitrofurantoin, monohydrate 75 mg oral capsule (1 source) Nitrofuran Antibacterial Start: 05-01-2025 End: 05-06-2025 take 1 capsule by mouth every twelve hours at mealtime Nitrofurantoin Monohyd/M-Cryst (Macrobid) 100 mg capsule Discontinued 100 mg PO Q12H 10 5 0 May 01, 2025 12:00am May 05, 2025 12:00am May 06, 2025 12:09am must administer with a meal/food phenazopyridine hydrochloride 200 mg oral tablet (1 source) Start: 05-01-2025 take 1 tablet by mouth after mealtime as needed for pain Odemfbej-Kop-Lw-Fa (4 sources) Start: 02-04-2023 take 1 tablet by mouth once Fecgrjbe-Ilb-Hf-Fa Active TABLET PO February 04, 2023 12:00am [...] Comment on above: Take 2 tablets by [facility] every 6 hours as needed for pain. aspirin 81 mg delayed release oral tablet (11 sources) Platelet Aggregation Inhibitor, Nonsteroidal Anti-inflammatory Drug Start: 12-06-2022 End: 03-20-2023 take 2 tablets by mouth once daily aspirin, enteric coated (ASPIRIN, ENTERIC COATED) 81 mg EC tablet Take 2 tablets by mouth once daily. 60 tablet 5 12/06/2022 03/20/2023 Discontinued Comment on above: Take 2 tablets by mo [facility] once daily. Blood Pressure Test Kit-Large (QUICK [...] Start: 01-28-2021 take 1 tablet by oskar th once daily Drospirenone-Ethinyl Estradiol 3-0.03 mg per tablet Indications: Surveillance for control, oral contraceptives Take 1 tablet by mouth once daily. 84 tablet 4 01/28/2021 Active Comment on above: Take 1 tablet by oskar th once daily. escitalopram 20 mg oral tablet (20 sources) Serotonin Reuptake Inhibitor Start: 5 End: take 1 tablet by mouth once daily Escitalopram Oxalate (Lexapro) 20 mg tablet Discontinued 20 mg PO daily November 15, 2024 12:00am December 23, 2024 8:20pm Start: 01-07-2021 End: 11-15-2024 take 1 tablet [...] 1 tablet by oskar th once daily. ferrous sulfate 325 mg oral tablet (2 sources) Start: 02-14-20 End: 03-20-20 take 1 tablet by mouth once daily ferrous sulfate 325 mg (65 mg iron) tablet Take 1 tablet by mouth once daily. 30 tablet 3 02/13/2023 03/20/2023 Discontinued Comment on above: Take 1 tablet by oskar th once daily. ibuprofen 600 mg oral tablet [...] every 6 hours as needed for pain. Ujjfghcp-Wnq-In-Fa 1 mg tablet (6 sources) Start: 02-05-20 End: 11-16-19 take 1 tablet by mouth once Ssnrbhat-Dbq-Gl-Fa 1 mg tablet Discontinued {tbl} PO February 04, 2023 12:00am November 15, 2024 9:32am Start: 02-04-2023 End: 11-15-2024 take 1 tablet by mouth once Hwlniajs-Mrj-Rb-F a 1 mg tablet Discontinued {tbl} PO [...] mg / trimethoprim 160 mg oral tablet (5 sources) Dihydrofolate Reductase Inhibitor Antibacterial, Sulfonamide Antimicrobial Start: 12-14-2020 End: 01-07-2021 Sulfamethoxazole-Trime thoprim 1 TABLET tablet Discontinued 1 {tbl} PO TWICE A DAY 14 0 December 14, 2020 12:00am January 07, 2021 12:56pm Start: 12-14-2020 End: 01-07-2021 take 1 tablet by mouth twice daily Sulfamethoxazole-Trimethoprim Discontinu ed 1 TABLET PO TWICE A DAY December 14, 2020 12:00am January 07, 2021 12:56pm traZODone hydrochloride 50 mg oral tablet (7 sources) Serotonin Reuptake Inhibitor Start: 01-07-2021 End: [...] Problem Classification Problem Date Documented Date Episodic/Chronic Anxiety disorders (19 sources) Anxiety disorder; Translations: [Generalized anxiety disorder] Onset: 05-11-2013 Resolved: 03-17-2017 08-27-2024 Chronic Conditions associated with dizziness or vertigo (1 source) Dizziness; Translations: [Dizziness and giddiness] 02-13-2023 Episodic Contraceptive and procreative management (3 sources) Oral contraception; Translations: [Encounter for surveillance of contraceptive pills] Episodic Diabetes or abnormal glucose tolerance complicating ; childbirth; or the puerperium (1 source) Impaired glucose tolerance in ; Translations: [Abnormal glucose complicating ] Episodic Fever of unknown origin (5 sources) Fever; Translations: [Fever, unspecified] 01-07-2021 Episodic Genitourinary symptoms and ill-defined conditions (2 sources) Scalding pain on urination ; Translations: [Dysuria] Onset: 05-01-2025 05-01-2025 Episodic Hypertension complicating ; childbirth and the puerperium (11 sources) Hypertension complicating , childbirth and the puerperium; Translations: [Unspecified maternal hypertension, complicating childbirth] Onset: 02-10-2023 02-10-2023 Chronic Immunizations and screening for infectious disease (11 sources) Vaccination needed; Translations: [Encounter for immunization] Episodic Infective arthritis and osteomyelitis (except that caused by tuberculosis or sexually transmitted disease) (5 sources) Pelvic abscess; Translations: [Osteomyelitis of vertebra, sacral and sacrococcygeal region] 07-11-2020 Chronic Inflammatory diseases of female pelvic organs (1 source) Acute vaginitis; Translations: [Acute vaginitis] Episodic Malaise and fatigue (2 sources) Fatigue; Translations: [Other fatigue] 02-14-2025 Episodic Nonmalignant breast conditions (11 sources) Lump in upper inner quadrant of left breast; Translations: [Unspecified lump in the left breast, upper inner quadrant] Onset: 09-18-2024 Episodic Nutritional deficiencies (2 sources) Vitamin D deficiency; Translations: [Vitamin D deficiency, unspecified] 02-14-2025 Chronic Other complications of (4 sources) Abdominal pain in ; Translations: [Other [...] specified screening] Episodic Other upper respiratory infections (5 sources) Upper respiratory infection; Translations: [Acute upper [...] gestation of ] Episodic Residual codes; unclassified (6 sources) Gestation period, 28 weeks; Translations: [28 weeks gestation of ] Episodic Residual codes; unclassified (5 sources) Gestation period, 29 weeks; Translations: [29 [...] of malignant neoplasm of breast] 11-26-2024 Episodic Residual codes; unclassified (1 source) Illness, unspecified; Translations: [Illness, unspecified] Onset: 05-30-2025 Episodic Skin and subcutaneous tissue infections (5 sources) Pilonidal cyst with abscess; Translations: [Pilonidal cyst with abscess] 12-15-2020 Episodic Unclassified (2 sources) Patient encounter status 11-27-2024 Unclassified (1 source) Breast Problem Onset: 11-26-2024 Urinary tract infections (2 sources) Urinary tract infectious disease; Translations: [Urinary tract infection, site not specified] 05-02-2025 Episodic Past or Other Problems Problem Classification Problem Date Documented Da te Episodic/Chronic Administrative/social admission (6 sources) First encounter by subject; Translations: [Persons encountering health services in other specified circumstances] Onset: 5 11-15-2024 Episodic Diabetes mellitus without complication (17 sources) Increased [...] aftercare (13 sources) Drug indicated; Translations: [Other assisted (current) drug therapy] Onset: 7 Resolved: 3 [...] Test Name Value Interpretation Reference Range Facility Urine Cultureon 05-03-2025 [facility] Escherichia coli Flushing Count 25,000-50,000 Escherichia coli: REACTION Ampicillin Islt STEPHANIE >=32 Ampicillin+Sulbac Islt STEPHANIE 16 I Cefepime Islt STEPHANIE <=0.12 S cefTRIAXone Islt STEPHANIE <=0.25 S Ciprofloxacin Islt STEPHANIE <=0.06 S B-Lactamase Extended Susc Islt NEG Gentamicin Islt STEPHANIE <=1 S levoFLOXacin Islt STEPHANIE <=0.12 S Meropenem Islt STEPHANIE <=0.25 S Nitrofurantoin Islt STEPHANIE <=16 S Pip+Tazo Islt STEPHANIE <=4 S TMP SMX Islt STEPHANIE <=20 S Normal [facility] Comment on above: Performed By: #### M 100.2200, L400.0001 #### [facility] Laboratory [address] [place], [address] Bilirubin Test strip Ql (U)O rdered By: Terra Garduno on 05-01-2025 Bilirubin Ql (U) Negative Negative [facility] Internal Medicine Office Vis iton 05-01-2025 Internal Medicine Office Visit [facility] Internal Medicine [address] [place], [place] [address] OFFICE VISIT Date of Service: 05/01/25 MR#: [id number] Acct: [id number] Name: NESTOR LOPEZ Rep #: [id number] : 2000 Provider: JORGE machado Age/Sex: 24/F Location: [facility] [place] Status: Signed Intake Vital Signs 02/14/25 10:22 05/01/25 09:37 Height 5 ft 6 in 5 ft 6 in Weight: 155 lb 6 oz 161 lb BMI 25.0 25.9 BP 106/62 110/74 Blood Pressure Location Lt brachial Lt brachial Position Sitting Sitting Respiration 16 16 Pulse 97 113 H Pulse Source Monitor Monitor Temp 97.6 F L 97.4 F L Temp Source Temporal Temporal Pulse Oximetry (%) 99 97 Oxygen Delivery Method room air room air Intake Visit Reasons: Possible UTI Chief Complaint: uti Pneumatic Jack Operator Required: No Accompanied by: Self Is patient in pain?: No Allergies Seasonal Allergies: Uncoded Allergy (Unknown, Verified 05/01/25 09:33) NEEDS FOLLOW-UP Nurse's Note: burning and frequent urination PFSH Medical History Fatigue Vitamin D insufficiency Encounter to establish care Generalized anxiety disorder Breast lump Pneumonia Migraine Allergies section wound complication Lab test negative for COVID-19 virus URI (upper respiratory infection) Pilonidal cyst with abscess Family History Other Arthritis Diabetes Seizures Social History Smoking Status: Never smoker HPI HPI Chief Complaint: uti Details: NESTOR LOPEZ, is a 24 F who presents to the office today for urinary concerns. Patient states she has urinary frequency as well as burning with urination that started last night. She also started her. Yesterday. She denies any lower abdominal pain more so than menstrual cramps. Feels that she has pain in the urethra when she urinates. Urine in his without odor or change in color. Has nausea vomiting denies fever or chills. Denies any recent changes in diet. ROS Const Constitutional: No body ache, excessive sweating, fatigue, fever(s), frequent falls, headache(s), snoring, weakness, weight change, sleep problems or change in appetite Eyes Eyes: No blurry vision, change in vision, eye pain or Light sensitivity ENT ENT: No abnormal hearing, ear or mastoid pain, tinnitus, nasal congestion, headache(s), neck pain or sore throat Resp Respiratory: No cough, shortness of breath, snoring or wheezing Cardio [...] enlarged lymph nodes Exam Const General: cooperative, no acute distress and well developed Nutritional Appearance: well nourished Orientation: alert and oriented x3 HENMT Head: normal to inspection and normocephalic Ears: hearing grossly normal bilaterally Nose: external nose normal Face and sinus: normal facial exam Mouth: oral mucosae normal Eyes General: appearance normal, both eyes and all related structures Neck Neck: normal visual inspection, trachea midline and nontender Lymphatic: no lymphadenopathy noted Chest Chest palpation inspection: normal inspection of the chest Resp Effort Inspection: normal respiratory effort, able to speak in complete sentences and symmetric chest movement Auscultation: Bilateral: Clear to Auscultation Cardio Palpation: normal PMI Rate: regular rate Rhythm: regular rhythm Heart Sounds: S1 normal and S2 normal GI Inspection: normal to inspection Palpation: soft and nontender Skin (more content not included)... Normal [facility] Ketones Test strip Ql (U)Ord ered By: Terra Garduno on 05-01-2025 Ketones Ql (U) Negative Negative [facility] Microscopic analysis of urin e for red blood cells (RBC)Ordered By: Terra Garduno on 05-01-2025 Microscopic analysis of urine for red blood cells (RBC) 0-5 SEEN /hpf 0-5 [facility] Mucus LM Ql (Urine sed)Order ed By: Terra Garduno on 05-01-2025 Mucus Ql (Urine sed) 0 SEEN /hpf [facility] Nitrite Test strip Ql (U)Ord ered By: Terra Garduno on 05-01-2025 Nitrite Ql (U) Negative Negative [facility] Protein Test strip Ql (U)Ord ered By: Terra Garduno on 05-01-2025 Protein Ql (U) Negative Negative [facility] Squamous epithelial cells de tection in urine sediment by light microscopyOrdered By: Terra Garduno on 05-01-2025 Epithelial cells.squamous LM Ql (Urine sed) 0-5 SEEN /hpf -10 [facility] Urinalysis, Completeon 05-01 EPI,SQUAMOUS 0-5 SEEN Normal -10 [facility] Comment on above: Order Comment: CLEAN CATCH Performed By: #### M 100.2200, [id number] #### [facility] [address] [facility] [address] RBC 0-5 SEEN Normal 0-5 [facility] Comment on above: Order Comment: CLEAN CATCH Performed By: #### M 100.2200, [id number] #### [facility] [address] [place], [address] WBC 0-5 SEEN Normal 0-5 [facility] Comment on above: Order Comment: CLEAN CATCH Performed By: #### M 100.2200, [id number] #### [facility] [address] [place], [address] BACTERIA 0 SEEN Normal None Seen [facility] Comment on above: Order Comment: CLEAN CATCH Performed By: #### M 100.2200, [id number] #### [facility] [address] [place], [address] Mucus Ql (Urine sed) 0 SEEN Normal [facility] Comment on above: Order Comment: CLEAN CATCH Performed By: #### M 100.2200, [id number] #### [facility] [address] [place], [address] Urine clarityOrdered By: Ninfa Garduno on 05-01-2025 Clarity (U) Clear Clear [facility] Urine color determinationOrd ered By: Terra Garduno on 05-01-2025 Color (U) Straw Yellow [facility] Urine cultureOrdered By: Ninfa Garduno on 05-01-2025 Bacteria identified Cx Nom (U) Escherichia coli Abnormal [facility] Urine glucose detectionOrder ed By: Terra Garduno on 05-01-2025 Glucose Ql (U) Normal mg/dl Normal [facility] Urine leukocyte esterase det ection by dipstickOrdered By: Terra Garduno on 05-01-2025 Leukocyte esterase Test strip Ql (U) 25 /ul High Negative [facility] Urine pHOrdered By: Terra Garduno on 05-01-2025 pH (U) 6.5 [pH] 5.0 - 8.0 [facility] Urine sediment bacteria coun t by microscopy (number/high power field)Ordered By: Terra Garduno on 05-01-2025 Bacteria LM.HPF (Urine sed) [#/Area] 0 /[HPF] None Seen [facility] Urine specific gravity measu rementOrdered By: Terra Garduno on 05-01-2025 Specific gravity (U) [Rel density] 1.005 1.002-1.030 [facility] Urine urobilinogen measureme ntOrdered By: Terra Garduno on 05-01-2025 Urobilinogen Ql (U) Normal mg/dl Normal [facility] White blood cell countOrdere d By: Terra Garduno on 05-01-2025 White blood cell count 0-5 SEEN /hpf 0-5 [facility] US BREAST LTD LTon 03-18 [facility] US BREAST LTD LT * * *Final Report* * * DATE OF EXAM: Mar 18 2025 8:47AM WRU 0593 - [facility] US BREAST LTD LT / PROCEDURE REASON: Solitary cyst of left breast * * * * Physician Interpretation * * * * [facility] [address] [place] [address] #[id number] - [facility] [employer] BREAST Sk[employer] LT HISTORY: 24 year-old patient presents for [...] Patricia Conteh M.D. Electronically signed on: 03/18/2025 Product Marketing Director: INDIO Transcribe Date/Time: Mar 18 2025 8:36A Dictated by : PATRICIA CONTEH MD This examination was interpreted and the report reviewed and electronically signed by: PATRICIA CONTEH MD on Mar 18 2025 9:03AM EST [id number] Normal [facility] US Breast - left limitedon 0 03-18-2025 IMPRESSION: The 0.5 cm stable oval complicated cyst in the left breast at 10 o'clock is probably benign. Follow-up with diagnostic ultrasound is recommended in 6 months. BI-RADS Category 3: Probably Benign Interpreting Radiologist: Patricia Conteh M.D. Electronically signed on: 03/18/2025 Product Marketing Director: INDIO Transcribe Date/Time: Mar 18 2025 8:36A Dictated by : PATRICIA CONTEH MD This examination was interpreted and the report reviewed and electronically signed by: PATRICIA CONTEH MD on Mar 18 2025 9:03AM EST DIVISION OF RADIOLOGY * * *Final Report* * * DATE OF EXAM: Mar 18 2025 8:47AM [facility] 0593 - [facility] [employer] BREAST Skulpt LT / PROCEDURE REASON: Solitary cyst of left breast * * * * Physician Interpretation * * * * [place] [address] #[id number] - [employer] BREAST Skulpt LT HISTORY: 24 year-old patient presents for [...] DATE OF EXAM: Mar 18 2025 8:47AM U 0593 - [employer] BREAST Skulpt LT / PROCEDURE REASON: Solitary cyst of left breast * * * * Physician Interpretation * * * * [place] [id number] #[id number] - [employer] LT HISTORY: 24 year-old patient presents for [...] Patricia Conteh M.D. Electronically signed on: 03/18/2025 Product Marketing Director: INDIO Transcrigeorges Date/Time: Mar 18 2025 8:36A Dictated by : PATRICIA CONTEH MD This examination was interpreted and the report reviewed and electronically signed by: PATRICIA CONTEH MD on Mar 18 2025 9:03AM EST [facility] Radiology Study [facility] (narrative[facility] Breast - left limitedOrde red By: Ccf Provider on 03-18-2025 [facility] Internal Medicine Office Vis iton 02-14-2025 Internal Medicine Office Visit [facility] [place] [address] OFFICE VISIT Date of Service: 02/14/25 MR#: [id number] Acct: [id number] Name: NESTOR LOPEZ Rep #: [id number] : 2000 Provider: Dr. Franklin adames MD Age/Sex: 24/F Location: [facility] [place] Status: Signed Intake Vital Signs 11/15/24 09:38 [...] M FU Chief Complaint: fu chronic conditions Pneumatic Jack Operator Required: No Accompanied by: Self Is patient in pain?: No Allergies Seasonal Allergies: Uncoded Allergy (Unknown, Verified 02/14/25 10:19) NEEDS FOLLOW-UP Medications ???Medication ???Instructions ???Recorded ???Confirmed ???Type escitalopram oxalate 20 mg tablet 20 mg PO QDAY #90 tabs 12/23/24 0 02/14/25 Rx (Lexapro) buspirone 10 mg tablet 10 mg PO BID #180 tabs 02/14/25 Rx Nurse's Note: follow up [facility] Medical History (Updated 02/14/25 @ 12:34 [...] Cardio Rat (more content not included)... Normal [facility] CNOVon 11-26-2024 CNOV Office Visit (OBGYWM ) NESTOR LOPEZ ([id number]) 2 F Date Time Provider Department 11/26/24 3:30 PM SANDRA VIZCAINO OBGYWM During your visit today, we recorded the following information about you: Blood pressure Weight 120/70 70.3 kg Sandra Vizcaino MD 11/26/2024 4:04 PM Signed Pi/Senior Research Associate offered: Patient declines. Subjective The patient is [...] pills. - Previously prescribed spironolactone by a technical document writer for cystic acne but did not start [...] history and its implications. Attestation Recording using [employer] software for draft documentation of the visit was discussed with the patient/authorized operations support representative; all questions welcomed and ans (more content not included)... Normal [facility] Carlos 11-26-2024 LOGANN Telephone (OBGYWM) NESTOR LOPEZ ([id number]) 2 F Date Time Provider Department 11/26/24 SANDRA VIZCAINO During your visit today, we recorded the following information about you: Sabrian Ayala RN 11/26/2024 8:03 AM Signed Left [...] Status:Closed by SABRINA AYALA on 11/26/24 Normal [facility] Absolute lymphocyte countOrd ered By: Franklin Brown on 11-15-2024 Lymphocytes Auto (Unsp spec) [#/Vol] 2.24 10*3/uL 0.83-4.51 [facility] Absolute neutrophil countOrd ered By: Franklin Brown on 11-15-2024 Neutrophils (Bld) [#/Vol] 3.8 10*3/uL 2.0-7.7 [facility] Anion gap in Serum or Plasma Ordered By: Franklin Brown on 11-15-2024 Anion gap [Moles/Vol] 11 mmol/L 5-15 [facility] Automated lymphocyte count a s percentage of total leukocytesOrdered By: Franklin Brown on 11-15-2024 Lymphocytes/100 WBC Auto (Unsp spec) 33.4 % 19-41 [facility] BUN/creatinine ratioOrdered By: Franklin Brown on 11-15-2024 Urea nitrogen/Creatinine [Mass ratio] 12.4 mg/mg 10-20 [facility] Basophil percentageOrdered B y: Franklin Brown on 11-15-2024 Basophils/100 WBC (Bld) 0.9 % 0-1 [facility] Bilirubin, totalOrdered By: Franklin Brown on 11-15-2024 Bilirubin [Mass/Vol] 0.77 mg/dL 0.00-1.30 [facility] CBC W/Diff, Automatedon 11-05-2024 Absolute Lymph 2.24 X10 3/uL Normal 0.83-4.51 [facility] Comment on above: Performed By: #### L 100.0100, L506.0400, L506.1001, L503.0106, L500.4050, L501.9520 #### [facility] [address] [place], [address] Absolute Neut 3.8 X10 3/uL Normal 2.0-7.7 [facility] Comment on above: Performed By: #### L 100.0100, L506.0400, L506.1001, L503.0106, L500.4050, L501.9520 #### [facility] [address] [place], [address] Basophils/100 WBC (Bld) 0.9 % Normal 0-1 [facility] Comment on above: Performed By: #### L 100.0100, L506.0400, L506.1001, L503.0106, L500.4050, L501.9520 #### [facility] [address] [place], [address] Eosinophils/100 WBC (Bld) 0.7 % Normal 0-5 [facility] Comment on above: Performed By: #### L 100.0100, L506.0400, L506.1001, L503.0106, L500.4050, L501.9520 #### [facility] [address] [place], [address] Erythrocyte distribution width (RBC) [Ratio] 12.5 % Normal 11.6-14.6 [facility] Comment on above: Performed By: #### L 100.0100, L506.0400, L506.1001, L503.0106, L500.4050, L501.9520 #### [facility] [address] [place], [address] Hematocrit (Bld) [Volume fraction] 42.8 % Normal 37-47 [facility] Comment on above: Performed By: #### L 100.0100, L506.0400, L506.1001, L503.0106, L500.4050, L501.9520 #### [facility] [address] [place], [address] Hemoglobin (Bld) [Mass/Vol] 13.7 g/dL Normal 12.0-15.0 [facility] Comment on above: Performed By: #### L 100.0100, L506.0400, L506.1001, L503.0106, L500.4050, L501.9520 #### [facility] [address] [place], [address] IG% 0.300 Normal 0.0-0.9 [facility] Comment on above: Result Comment: IG% - Immature Granulocytes (promyelocytes, myelocytes and metamyelocytes) > 1% indicates that a LEFT SHIFT is Present. Performed By: #### L 100.0100, L506.0400, L506.1001, L503.0106, L500.4050, L501.9520 #### [facility] [address] [place], [address] Lymphocytes/100 WBC (Bld) 33.4 % Normal 19-41 [facility] Comment on above: Performed By: #### L 100.0100, L506.0400, L506.1001, L503.0106, L500.4050, L501.9520 #### [facility] [address] [place], [address] MCH (RBC) [Entitic mass] 26.7 pg Low 27.0-32.0 [facility] Comment on above: Performed By: #### L 100.0100, L506.0400, L506.1001, L503.0106, L500.4050, L501.9520 #### [facility] [address] [place], [address] MCHC (RBC) [Mass/Vol] 32.0 g/dL Normal 32-36 [facility] Comment on above: Performed By: #### L 100.0100, L506.0400, L506.1001, L503.0106, L500.4050, L501.9520 #### [facility] [address] [place], [address] MCV (RBC) [Entitic vol] 83.3 fL Normal 81-99 [facility] Comment on above: Performed By: #### L 100.0100, L506.0400, L506.1001, L503.0106, L500.4050, L501.9520 #### [facility] [address] [place], [address] Monocytes/100 WBC (Bld) 8.4 % Normal 0-10 [facility] Comment on above: Performed By: #### L 100.0100, L506.0400, L506.1001, L503.0106, L500.4050, L501.9520 #### [facility] [address] [place], [address] Neutrophils/100 WBC (Bld) 56.3 % Normal 47-70 [facility] Comment on above: Performed By: #### L 100.0100, L506.0400, L506.1001, L503.0106, L500.4050, L501.9520 #### [facility] [address] [place], [address] Nucleated RBC (Bld) [#/Vol] 0 10*3/uL Normal 0-5 [facility] Comment on above: Performed By: #### L 100.0100, L506.0400, L506.1001, L503.0106, L500.4050, L501.9520 #### [facility] [address] [place], [address] Platelet mean volume (Bld) [Entitic vol] 10.7 fL Normal 6.2-12.0 [facility] Comment on above: Performed By: #### L 100.0100, L506.0400, L506.1001, L503.0106, L500.4050, L501.9520 #### [facility] [address] [place], [address] Platelets (Bld) [#/Vol] 263 10*3/uL Normal 150-450 [facility] Comment on above: Performed By: #### L 100.0100, L506.0400, L506.1001, L503.0106, L500.4050, L501.9520 #### [facility] [address] [place], [address] RBC (Bld) [#/Vol] 5.14 10*6/uL Normal 4.2-5.4 [facility] Comment on above: Performed By: #### L 100.0100, L506.0400, L506.1001, L503.0106, L500.4050, L501.9520 #### [facility] [address] [place], [address] RDW SD 37.6 fl Normal 35.1-43.9 [facility] Comment on above: Performed By: #### L 100.0100, L506.0400, L506.1001, L503.0106, L500.4050, L501.9520 #### [facility] [address] [place], [address] WBC (Bld) [#/Vol] 6.7 10*3/uL Normal 4.4-11.0 [facility] Comment on above: Performed By: #### L 100.0100, L506.0400, L506.1001, L503.0106, L500.4050, L501.9520 #### [facility] [address] [place], [address] Carbon dioxide, total [Moles /volume] in Central venous bloodOrdered By: Franklin Brown on 11-15-2024 CO2 [Moles/Vol] 25.5 mmol/L 21.0-32.0 [facility] Chloride assayOrdered By: Ernesto Brown on 11-15-2024 Chloride [Moles/Vol] 103 mmol/L 98-108 [facility] Comprehensive Metabolic Prof ilon 11-15-2024 Albumin [Mass/Vol] 4.6 g/dL Normal 3.5-5.0 [facility] Comment on above: Performed By: #### L 100.0100, L506.0400, L506.1001, L503.0106, L500.4050, L501.9520 #### [facility] [address] [place], [address] Albumin/Globulin [Mass ratio] 1.8 {ratio} Normal 0.9-2.4 [facility] Comment on above: Performed By: #### L 100.0100, L506.0400, L506.1001, L503.0106, L500.4050, L501.9520 #### [facility] [address] [place], [address] ALK PHOS 38 U/L Normal 35-104 [facility] Comment on above: Performed By: #### L 100.0100, L506.0400, L506.1001, L503.0106, L500.4050, L501.9520 #### [facility] [address] [place], [address] ALT [Catalytic activity/Vol] 11 U/L Normal <=34 [facility] Comment on above: Performed By: #### L 100.0100, L506.0400, L506.1001, L503.0106, L500.4050, L501.9520 #### [facility] [address] [place], [address] AST [Catalytic activity/Vol] 18 U/L Normal <=31 [facility] Comment on above: Performed By: #### L 100.0100, L506.0400, L506.1001, L503.0106, L500.4050, L501.9520 #### [facility] [address] [place], [address] Bilirubin [Mass/Vol] 0.77 mg/dL Normal 0.00-1.30 [facility] Comment on above: Performed By: #### L 100.0100, L506.0400, L506.1001, L503.0106, L500.4050, L501.9520 #### [facility] [address] [place], [address] BUN/CRE 12.4 RATIO Normal 10-20 [facility] Comment on above: Performed By: #### L 100.0100, L506.0400, L506.1001, L503.0106, L500.4050, L501.9520 #### [facility] [address] [place], [address] Calcium [Mass/Vol] 9.4 mg/dL Normal 7.6-11.0 [facility] Comment on above: Performed By: #### L 100.0100, L506.0400, L506.1001, L503.0106, L500.4050, L501.9520 #### [facility] [address] [place], [address] Chloride [Moles/Vol] 103 mmol/L Normal 98-108 [facility] Comment on above: Performed By: #### L 100.0100, L506.0400, L506.1001, L503.0106, L500.4050, L501.9520 #### [facility] [address] [place], [address] CO2 [Moles/Vol] 25.5 mmol/L Normal 21.0-32.0 [facility] Comment on above: Performed By: #### L 100.0100, L506.0400, L506.1001, L503.0106, L500.4050, L501.9520 #### [facility] [address] [place], [address] Creatinine [Mass/Vol] 0.74 mg/dL Normal 0.70-1.20 [facility] Comment on above: Performed By: #### L 100.0100, L506.0400, L506.1001, L503.0106, L500.4050, L501.9520 #### [facility] [address] [place], [address] GAP 11 Normal 5-15 [facility] Comment on above: Performed By: #### L 100.0100, L506.0400, L506.1001, L503.0106, L500.4050, L501.9520 #### [facility] [address] [place], [address] GFR/1.73 sq M.predicted among non-blacks MDRD (S/P/Bld) [Vol rate/Area] 116 mL/min/{1.73_m2} Normal >60 [facility] Comment on above: Result Comment: mL/m in/1.73m2 CKD-EPI Creatinine Equation (2020) Performed By: #### L 100.0100, L506.0400, L506.1001, L503.0106, L500.4050, L501.9520 #### [facility] [address] [place], [address] Globulin (S) [Mass/Vol] 2.6 g/dL Normal 2.2-4.2 [facility] Comment on above: Performed By: #### L 100.0100, L506.0400, L506.1001, L503.0106, L500.4050, L501.9520 #### [facility] [address] [place], [address] Glucose [Mass/Vol] 82 mg/dL Normal 70-99 [facility] Comment on above: Performed By: #### L 100.0100, L506.0400, L506.1001, L503.0106, L500.4050, L501.9520 #### [facility] [address] [place], [address] Potassium [Moles/Vol] 4.0 mmol/L Normal 3.3-5.1 [facility] Comment on above: Performed By: #### L 100.0100, L506.0400, L506.1001, L503.0106, L500.4050, L501.9520 #### [facility] [address] [place], [address] Sodium [Moles/Vol] 140 mmol/L Normal 133-145 [facility] Comment on above: Performed By: #### L 100.0100, L506.0400, L506.1001, L503.0106, L500.4050, L501.9520 #### [facility] [address] [place], [address] T PROT 7.2 g/dL Normal 5.9-8.4 [facility] Comment on above: Performed By: #### L 100.0100, L506.0400, L506.1001, L503.0106, L500.4050, L501.9520 #### [facility] [address] [place], [address] Urea nitrogen [Mass/Vol] 9 mg/dL Normal 4-19 [facility] Comment on above: Performed By: #### L 100.0100, L506.0400, L506.1001, L503.0106, L500.4050, L501.9520 #### [facility] [address] [place], [address] Eosinophil percentageOrdered By: Franklin Brown on 11-15-2024 Eosinophils/100 WBC (Bld) 0.7 % 0-5 [facility] Erythrocyte distribution wid th (RBC) [Ratio]Ordered By: Akashwhite havengeorges Brown on 11-15-2024 Erythrocyte distribution width (RBC) [Entitic vol] 37.6 fL 35.1-43.9 [facility] Erythrocyte distribution wid th ratioOrdered By: ryanwhite havengeorges Brown on 11-15-2024 Erythrocyte distribution width (RBC) [Ratio] 12.5 % 11.6-14.6 [facility] Erythrocyte distribution wid th standard deviationOrdered By: Donalsonville Hospitalgeorges Brown on 11-15-2024 Erythrocyte distribution width (RBC) [Ratio] 37.6 fl 35.1-43.9 [facility] GFR/1.73 sq M.predicted ismael g non-blacks MDRD (S/P/Bld) [Vol rate/Area]Ordered By: Franklin Brown on 11-15-2024 Estimated GFR (MDRD) Non-Af Amer 116 >60 [facility] Comment on above: mL/min/1.73m2 CKD-EP I Creatinine Equation (2020) Glomerular filtration rate ( GFR) estimation/1.73 sq m using serum, plasma, or whole bOrdered By: Franklin Brown on 11-15-2024 GFR/1.73 sq M.predicted among non-blacks MDRD (S/P/Bld) [Vol rate/Area] 116 mL/min/{1.73_m2} >60 [facility] Comment on above: mL/min/1.73m2 CKD-EP I Creatinine Equation (2020) Hematocrit Auto (Bld) [Volum e fraction]Ordered By: Franklin Brown on 11-15-2024 Hematocrit (Bld) [Volume fraction] 42.8 % 37-47 [facility] Hemoglobin measurementOrdere d By: Franklin Brown on 11-15-2024 Hemoglobin (Bld) [Mass/Vol] 13.7 g/dL 12.0-15.0 [facility] Immature granulocytes/100 WB C Auto (Bld)Ordered By: Franklin Brown on 11-15-2024 Immature granulocytes/100 WBC (Bld) 0.300 % 0.0-0.9 [facility] Comment on above: IG% - Immature Granu locytes (promyelocytes, myelocytes and metamyelocytes) > 1% indicates that a LEFT SHIFT is Present. Internal Medicine Office Vis soo 11-15-2024 Internal Medicine Office Visit [facility] [place] [address] [place] [address] OFFICE VISIT Date of Service: 11/15/24 MR#: [id number] Acct: [id number] Name: NESTOR LOPEZ Rep #: [id number] : 2000 Provider: Dr. 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 Franklin Brown MD) Encounter to establish care Generalized anxiety disorder Breast lump Pneumonia Migraine Allergies section wound complication Lab test negative for COVID-19 virus URI (upper respiratory infection) Pilonidal cyst with abscess Family History (Updated 11/15/24 @ 09:35 by Guerda Wilks) Other Arthritis Diabetes Seizures Social History Smoking Status: Never smoker Questionnaire MARTINA-7 BMS MARTINA-7 Feeling nervous, anxious, or on edge: [...] and colleagues, with an educational mirela from [employer]. HPI HPI Chief Complaint: establishing Details: NESTOR LOPEZ, [...] increased hun (more content not included)... Normal [facility] - Chemistry and C hemistry - challengeOrdered By: Franklin Brown on 11-15-2024 AST [Catalytic activity/Vol] 18 U/L <32 [facility] Lymphocytes Auto (Unsp spec) [#/Vol]Ordered By: Franklin Brown on 11-15-2024 Lymphocytes (Bld) [#/Vol] 2.24 10*3/uL 0.83-4.51 [facility] Lymphocytes/100 WBC Auto (Un sp spec)Ordered By: Franklin Brown on 11-15-2024 Lymphocytes/100 WBC (Bld) 33.4 % 19-41 [facility] MCV (mean corpuscular volume ) determinationOrdered By: Franklin Hughmaximoivana on 11-15-2024 MCV (RBC) [Entitic vol] 83.3 fL 81-99 [facility] Mean corpuscular hemoglobin (MCH) determinationOrdered By: Carltongeorges Reesemaximoivana on 11-15-2024 MCH (RBC) [Entitic mass] 26.7 pg Low 27.0-32.0 [facility] Mean corpuscular hemoglobin concentration (MCHC) determinationOrdered By: Carltongeorges Reesemaximoivana on 11-15-2024 MCHC (RBC) [Mass/Vol] 32.0 g/dL 32-36 [facility] Mean platelet volume determi nationOrdered By: Carltongeorges Reesemaximoivana on 11-15-2024 Platelet mean volume (Bld) [Entitic vol] 10.7 fL 6.2-12.0 [facility] Monocyte percentageOrdered B y: Franklin Renoivana on 11-15-2024 Monocytes/100 WBC (Bld) 8.4 % 0-10 [facility] Neutrophil percentageOrdered By: Franklin Hughmaximoivana on 11-15-2024 Neutrophils/100 WBC (Bld) 56.3 % 47-70 [facility] Nucleated red blood cell per centageOrdered By: Franklin Hughmaximoivana on 11-15-2024 Nucleated RBC/100 WBC (Bld) [Ratio] 0 % 0-5 [facility] Platelet countOrdered By: Ernesto rigo Hughmaximoivana on 11-15-2024 Platelets (Bld) [#/Vol] 263 10*3/uL 150-450 [facility] Potassium (Unsp spec) [Mass/ Vol]Ordered By: Franklin Reesemaximoivana on 11-15-2024 Potassium [Moles/Vol] 4.0 mmol/L 3.3-5.1 [facility] Potassium measurement (mass/ volume)Ordered By: Franklin Brown on 11-15-2024 Potassium (Unsp spec) [Mass/Vol] 4.0 mmol/L 3.3-5.1 [facility] RBC Auto (Bld) [#/Vol]Ordere d By: Franklin Brown on 11-15-2024 RBC (Bld) [#/Vol] 5.14 10*6/uL 4.2-5.4 [facility] Serum creatinine measurement (mass/volume)Ordered By: Franklin Brown on 11-15-2024 Creatinine [Mass/Vol] 0.74 mg/dL 0.70-1.20 [facility] Serum globulin measurementOr dered By: Franklin Brown on 11-15-2024 Globulin (S) [Mass/Vol] 2.6 g/dL 2.2-4.2 [facility] Serum glucose measurement (m ass/volume)Ordered By: Franklin Brown on 11-15-2024 Glucose [Mass/Vol] 82 mg/dL 70-99 [facility] Serum or plasma alanine cazares otransferase (ALT) measurementOrdered By: Franklin Brown on 11-15-2024 ALT [Catalytic activity/Vol] 11 U/L <35 [facility] Serum or plasma albumin emilie urement (mass/volume)Ordered By: Franklin Brown 11-15-2024 Albumin [Mass/Vol] 4.6 g/dL 3.5-5.0 [facility] Serum or plasma albumin/glob ulin mass ratioOrdered By: Franklin Brown 11-15-2024 Albumin/Globulin [Mass ratio] 1.8 {ratio} 0.9-2.4 [facility] Serum or plasma alkaline javier sphatase measurementOrdered By: Franklin Brown 11-15-2024 ALP [Catalytic activity/Vol] 38 U/L 35-104 [facility] Serum or plasma calcium emilie urement (mass/volume)Ordered By: Franklin rBown 11-15-2024 Calcium [Mass/Vol] 9.4 mg/dL 7.6-11.0 [facility] Serum or plasma urea nitroge n measurement (mass/volume)Ordered By: Franklin Brown 11-15-2024 Urea nitrogen [Mass/Vol] 9 mg/dL 4-19 [facility] Sodium levelOrdered By: Akash melanie Brown on 11-15-2024 Sodium [Moles/Vol] 140 mmol/L 133-145 [facility] T4 Free Directon 11-15-2024 T4 FREE DIRECT 1.20 ng/dL Normal 0.76-1.46 [facility] Comment on above: Performed By: #### L 100.0100, L506.0400, L506.1001, L503.0106, L500.4050, L501.9520 #### [facility] [address] [place], [place], [id number] T4 freeOrdered By: Franklin Hughmaximoivana on 11-15-2024 Free T4 [Mass/Vol] 1.20 ng/dL 0.76-1.46 [facility] TSH DL <= 0.005 mIU/L QnOrde red By: Akashamygeorges Reesemaximoivana on 11-15-2024 Thyroid Stimulating Hormone (TSH) 2.980 uIU/mL 0.300-4.200 [facility] TSH Qn 2.980 uIU/mL 0.300-4.200 [facility] Thyroid Stim Hormone (TSH)on 11-15-2024 TSH 2.980 uIU/mL Normal 0.300-4.200 [facility] Comment on above: Performed By: #### L 100.0100, L506.0400, L506.1001, L503.0106, L500.4050, L501.9520 #### [facility] [address] [place], [place], [id number] Total proteinOrdered By: Willie valdivia Hughmaximoivana on 11-15-2024 Protein [Mass/Vol] 7.2 g/dL 5.9-8.4 [facility] Vitamin B12on 11-15-2024 Cobalamin (Vitamin B12) [Mass/Vol] 471 pg/mL Normal 180-914 [facility] Comment on above: Performed By: #### L 100.0100, L506.0400, L506.1001, L503.0106, L500.4050, L501.9520 #### [facility] [address] [place], [place], [address] Vitamin B12 ser/plasOrdered By: Franklin Brown on 11-15-2024 Cobalamin (Vitamin B12) [Mass/Vol] 471 pg/mL 180-914 [facility] Vitamin D, 25-hydroxyOrdered By: Franklin Brown on 11-15-2024 Vitamin D 25-Hydroxy 25.0 ng/mL Low 30-100 [facility] Comment on above: Vitamin D StatusDefi ciency: <20 ng/mL (50nmol/L)Insufficiency: 20-30 ng/mL (50-75 nmol/L)Sufficiency: 30-100 ng/mL (75-250 nmol/L)Toxicity: >100 ng/mL (>250 nmol/L) Vitamin D,25 Hydroxyon 11-15 Vitamin D 25-OH 25.0 ng/mL Low 30-100 [facility] Comment on above: Result Comment: Susan min D Status Deficiency: <20 ng/mL (50nmol/L) Insufficiency: 20-30 ng/mL (50-75 nmol/L) Sufficiency: 30-100 ng/mL (75-250 nmol/L) Toxicity: >100 ng/mL (>250 nmol/L) Performed By: #### L 100.0100, L506.0400, L506.1001, L503.0106, L500.4050, L501.9520 ####[facility] [id number] [place], [address] White blood cell (WBC) count Ordered By: Franklin Brown on 11-15-2024 WBC (Bld) [#/Vol] 6.7 10*3/uL 4.4-11.0 [facility] JOHNNESTOR LAKHANI ([id number]) 2 F Date Time Provider Department 10/04/24 SANDRA VIZCAINO During your visit today, we recorded the following information about you: Sabrina Ayala RN 10/04/2024 8:44 AM Signed Patient asking if DM would increase her dosage of Lexapro. Currently taking 20 MG. States she felt like it helped in the beginning, but has been experiencing more anxiety. Please advise. CLINT Milelr Deidre, MD 10/04/2024 12:43 PM Signed Is she still seeing counselor? I feel that if she needs to go past 20mg she probably needs to see her PCP or psychiatry as this may not be the best medication for her. Rachel Barfield RN 10/04/2024 1:30 PM Signed Patient not currently seeing a counselor but is currently in process of seeing someone new. Patient states she has an appointment in November to establish with a PCP and has enough medication to get her through until her appointment. Patient will reach out to office if needs any assistance with appointments. Rachel Barfield RN Allergies As of Date: 10/04/2024 Noted Allergy Reaction SEASONAL ALLERGIES 11/10/2020 14 - Other: See Comments Comments: Runny nose, sneezing, itching in eyes. Date Reviewed: 08/27/2024 Reviewed by: Matilde Cortez MA - Fully Assessed Reason for Visit: Patient Question [8921] Prescriptions as of 10/04/2024 - escitalopram oxalate [...] Hypertension complicating , delivered,*02/10/2023 Encounter Status:Closed by RACHEL BARFIELD on 10/04/24 Normal [facility] REZA US BREAST LTD LTon 09-18 [facility] US BREAST LTD LT * * *Final Report* * * DATE OF EXAM: Sep 18 2024 2:45PM U 0593 - REZA US BREAST LTD LT / PROCEDURE REASON: Mass of upper inner quadrant of left breast * * * * Physician Interpretation * * * * [place] [address] #[id number] - [facility] [employer] BREAST Skulpt LT HISTORY: 24 year-old patient seen for [...] Patricia Conteh M.D. Electronically signed on: 09/18/2024 Product Marketing Director: INDIO [employer] Date/Time: Sep 18 2024 2:35P Dictated by : PATRICIA CONTEH MD This examination was interpreted and the report reviewed and electronically signed by: PATRICIA CONTEH MD on Sep 18 2024 2:48PM EST [id number] N Normal [facility] US Breast - left limitedon 0 09-18-2024 IMPRESSION: The 0.5 cm oval complicated cyst in the left breast is probably benign. A follow-up in 6 months is recommended. BI-RADS Category 3: Probably Benign Interpreting Radiologist: Patricia Conteh M.D. Electronically signed on: 09/18/2024 Product Marketing Director: INDIO [employer] Date/Time: Sep 18 2024 2:35P Dictated by : PATRICIA CONTEH MD This examination was interpreted and the report reviewed and electronically signed by: PATRICIA CONTEH MD on Sep 18 2024 2:48PM EST DIVISION OF RADIOLOGY * * *Final Report* * * DATE OF EXAM: Sep 18 2024 2:45PM [facility] 0593 - [facility] [employer] BREAST LTD LT / PROCEDURE REASON: Mass of upper inner quadrant of left breast * * * * Physician Interpretation * * * * [place] [id number] #[id number] - [employer] LT HISTORY: 24 year-old patient seen for [...] DATE OF EXAM: Sep 18 2024 2:45PM [facility] 0593 - [employer] LT / PROCEDURE REASON: Mass of upper inner quadrant of left breast * * * * Physician Interpretation * * * * [place] [id number] #[id number] - [employer] LT HISTORY: 24 year-old patient seen for [...] Patricia Conteh M.D. Electronically signed on: 09/18/2024 Product Marketing Director: INDIO Transcribe Date/Time: Sep 18 2024 2:35P Dictated by : PATRICIA CONTEH MD This examination was interpreted and the report reviewed and electronically signed by: PATRICIA CONTEH MD on Sep 18 2024 2:48PM EST [facility] Radiology Study observation (narrative) [facility] US Breast - left limitedOrde red By: Ccf Provider on 09-18-2024 [facility] CNOVon 08-27-2024 CNOV Office Visit (OBGYWM ) NESTOR LOPEZ ([id number]) 2 F Date Time Provider Department 08/27/24 10:20 AM SANDRA VIZCAINO OBGYWM During your visit today, we recorded the following information about you: Blood pressure Weight Height Last Period 11064 71.2 kg 1.676 m 08/17/24 Sandra Vizcaino MD 08/27/2024 10:54 AM Addendum Pi/Senior Research Associate offered: Patient declines. Abrams is a 24 year old who [...] SAB0 IAB0 Ectopic0 Multiple0 Live Births1 Rn Icu History LMP: 08/17/2024 (Exact Date), Unknown Age at Menarche: Age at First : Age at Menopause: Rn Icu History Comments: Sexual Activity: Yes; Male Contraception: [...] discussed with the Patient or Patient's Authorized Service Developer. As applicable, any other physician, advance practice provider, medical student, or other health professional student that will be observing or involved in the sensitive examination for educational or training purposes was discussed with the Patient or Authorized Service Developer. The Patient or Authorized Service Developer has agreed to proceed with the sensitive [...] external genitalia normal, normal Bartholin's glands, urethra, [employer]'s glands, no vulvar lesions, no cervical lesions, [...] See Com (more content not included)... Normal [facility] CBC W Auto Differential pane l (Bld)on 02-14-2023 Anisocytosis Ql (Bld) Present [facility] Basophils (Bld) [#/Vol] 0.00 10*3/uL <0.11 k/uL [facility] Basophils/100 WBC (Bld) 0.0 % [facility] Differential cell count method Nom (Bld) Manual [facility] Eosinophils (Bld) [#/Vol] 0.12 10*3/uL <0.46 k/uL [facility] Eosinophils/100 WBC (Bld) 0.9 % [facility] Erythrocyte distribution width (RBC) [Ratio] 16.8 % High 11.5 - 15.0 % [facility] Hematocrit (Bld) [Volume fraction] 31.8 % Low 36.0 - 46.0 % [facility] Hemoglobin (Bld) [Mass/Vol] 10.3 g/dL Low 11.5 - 15.5 g/dL [facility] Lymphocytes (Bld) [#/Vol] 2.62 10*3/uL 1.00 - 4.00 k/uL [facility] Lymphocytes/100 WBC (Bld) 19.3 % [facility] MCH (RBC) [Entitic mass] 28.0 pg 26. 0 - 34.0 pg [facility] MCHC (RBC) [Mass/Vol] 32.4 g/dL 30.5 - 36.0 g/dL [facility] MCV (RBC) [Entitic vol] 86.4 fL 80.0 - 100.0 fL [facility] Monocytes (Bld) [#/Vol] 0.50 10*3/uL <0.87 k/uL [facility] Monocytes/100 WBC (Bld) 3.7 % [facility] Myelo % 1.8 % [facility] Neutrophils (Bld) [#/Vol] 10.07 10*3/uL High 1.45 - 7.50 k/uL [facility] Neutrophils/100 WBC (Bld) 74.3 % [facility] Nucleated RBC (Bld) [#/Vol] 0.12 10*3/uL High <0.01 k/uL [facility] Nucleated RBC/100 WBC (Bld) [Ratio] 0.9 /100 WBC [facility] Ovalocytes LM Ql (Bld) Few Cl [facility] Platelet mean volume (Bld) [Entitic vol] 9.7 fL 9.0 - 12.7 fL [facility] Platelets (Bld) [#/Vol] 421 10*3/uL High 150 - 400 k/uL [facility] Platelets Estimate (Bld) [#/Vol] Increased [facility] Polychromasia LM Ql (Bld) Slight [facility] RBC (Bld) [#/Vol] 3.68 10*6/uL Low 3.90 - 5.2 0 m/uL [facility] RBC Fragments Few Abnormal None Seen [facility] Red Cell Morph Reviewed: see result s of individual morphologies [facility] WBC (Bld) [#/Vol] 13.55 10*3/uL High 3.70 - 11 .00 k/uL [facility] WBC Left Shift Ql (Bld) Present [facility] Comprehensive metabolic 2000 panelon 02-13-2023 Albumin [Mass/Vol] 4.3 g/dL 3.9 - 4.9 g/dL [facility] ALP [Catalytic activity/Vol] 99 U/L 34 - 123 U/L [facility] ALT [Catalytic activity/Vol] 55 U/L High 7 - 38 U/L [facility] Anion gap [Moles/Vol] 14 mmol/L 9 - 18 mmol/L [facility] AST [Catalytic activity/Vol] 18 U/L 13 - 35 U/L [facility] Bilirubin [Mass/Vol] 0.5 mg/dL 0.2 - 1 .3 mg/dL [facility] Calcium [Mass/Vol] 9.9 mg/dL 8.5 - 10. 2 mg/dL [facility] Chloride [Moles/Vol] 102 mmol/L 97 - 10 5 mmol/L [facility] CO2 [Moles/Vol] 23 mmol/L 22 - 30 mmol/L [facility] Creatinine [Mass/Vol] 0.62 mg/dL 0.58 - 0.96 mg/dL [facility] Estimated Glomerular Filtration Rate 130 mL/min/1.73m >=60 mL/min/1.73m [facility] Glucose [Mass/Vol] 86 mg/dL 74 - 99 mg/dL [facility] Potassium [Moles/Vol] 4.1 mmol/L 3.7 - 5.1 mmol/L [facility] Protein [Mass/Vol] 7.3 g/dL 6.3 - 8.0 g/dL [facility] Sodium [Moles/Vol] 139 mmol/L 136 - 144 mmol/L [facility] Urea nitrogen [Mass/Vol] 13 mg/dL 7 - 21 mg/d L [facility] CBC panel Auto (Bld)on 02-10 Erythrocyte distribution width (RBC) [Ratio] 15.6 % High 11.5-15.0 [facility] Comment on above: Order Comment: Speci men Type: BLOOD SPECIMEN Ordering Facility: [facility] Address: [address] [place], [place] [address] [address] Performed By: #### 5 8410-2 #### [facility] CLIA [id number] 1 [place] [address] [place] Hematocrit (Bld) [Volume fraction] 23.0 % Low 36.0-46.0 [facility] Comment on above: Order Comment: Speci men Type: BLOOD SPECIMEN Ordering Facility: [facility] Address: [address] [address] Performed By: #### 5 8410-2 #### [facility] CLIA [id number] [address] [facility] Hemoglobin (Bld) [Mass/Vol] 7.4 g/dL Low 11.5-15.5 [facility] Comment on above: Order Comment: Speci men Type: BLOOD SPECIMEN Ordering Facility: [facility] Address: [address] [place] [address] Performed By: #### 5 8410-2 #### [facility] CLIA [id number] [address] [place] MCH (RBC) [Entitic mass] 27.3 pg Normal 26.0-34.0 [facility] Comment on above: Order Comment: Speci men Type: BLOOD SPECIMEN Ordering Facility: [facility] Address: [address] [address] Performed By: #### 5 8410-2 #### [facility] CLIA [id number] [address] [facility] MCHC (RBC) [Mass/Vol] 32.2 g/dL Normal 30.5-36.0 [facility] Comment on above: Order Comment: Speci men Type: BLOOD SPECIMEN Ordering Facility: [facility] Address: [address] [address] Performed By: #### 5 8410-2 #### [facility] CLIA [id number] [address] [place] MCV (RBC) [Entitic vol] 84.9 fL Normal 80.0-100.0 [facility] Comment on above: Order Comment: Speci men Type: BLOOD SPECIMEN Ordering Facility: [facility] Address: [address] [place] [address] Performed By: #### 5 8410-2 #### [facility] CLIA [id number] [address] [place] Nucleated RBC (Bld) [#/Vol] 0.06 10*3/uL High <0.01 [facility] Comment on above: Order Comment: Speci men Type: BLOOD SPECIMEN Ordering Facility: [facility] Address: [address] [place] [address] Performed By: #### 5 8410-2 #### [facility] CLIA [id number] [address] [place] Platelet mean volume (Bld) [Entitic vol] 10.6 fL Normal 9.0-12.7 [facility] Comment on above: Order Comment: Speci men Type: BLOOD SPECIMEN Ordering Facility: [facility] Address: [address] [place] [address] Performed By: #### 5 8410-2 #### [facility] CLIA [id number] [address] [place] Platelets (Bld) [#/Vol] 137 10*3/uL Low 150-400 [facility] Comment on above: Order Comment: Speci men Type: BLOOD SPECIMEN Ordering Facility: [facility] Address: [address] [place] [address] Performed By: #### 5 8410-2 #### [facility] CLIA [id number] [address] [place] RBC (Bld) [#/Vol] 2.71 10*6/uL Low 3.90-5.20 [facility] Comment on above: Order Comment: Speci men Type: BLOOD SPECIMEN Ordering Facility: [facility] Address: [address] [place] [address] Performed By: #### 5 8410-2 #### [facility] CLIA [id number] [address] [place] WBC (Bld) [#/Vol] 14.25 10*3/uL High 3.70-11.00 [facility] Comment on above: Order Comment: Speci men Type: BLOOD SPECIMEN Ordering Facility: [facility] Address: [place] [address] Performed By: #### 5 8410-2 #### [facility] [id number] [address] [place] [place] [id number] [place] [facility] HOWARDDSon 02-10-2023 CNDS HNO ID: [id number] Author: Mary Paul MD Service: Obstetrics Author [...] management. Henrry Gorman Division of Maternal Medicine [facility] DISCHARGE SUMMARY OBSTETRICS PATIENT NAME: Nestor Lopez ADMISSION DATE: 02/06/2023 DISCHARGE DATE: 02/10/2023 Attending Physician: Areli Wing MD Code Status: Not on file Treatment Team: Attending Provider: Areli Wing MD Consulting: Jean Hernandez MD Reason for Hospitalization: Intrauterine . Principal Problem: Hypertension complicating , delivered, current hospitalization POA: Yes Active Problems: History of anxiety POA: Yes Rh negative state in antepartum period POA: Yes Thrombocytopenia affecting (HCC) POA: Yes HELLP syndrome, POA: Unknown Hyponatremia POA: Yes state POA: Unknown Resolved Problems: * No resolved hospital problems. * PROCEDURES/SURGERY DURING HOSPITALIZATION: Delivery Summary: Shruthi Madison [[id number]] Delivery Information: Delivery Date: 02/07/23 Delivery type: , Low Transverse Delivering Clinician: Areli Wing MD Vacuum Used: No Forceps Used: No Springer: Gender: Female Weight (grams): 1340 g One Minute : 1 Five Minute : 2 Procedures (if applicable) Recent Surgical Summary Past Procedures (01/11/2023 to Today) Date Procedures Providers Location 02/07/2023 SECTION Areli Wing (Primary)Yarely Sherwood [facility] Course: 22 year old female who is Postoperative Day #3 from delivery as noted above. 22yo who initially presented to [facility] for evaluation of abdominal pain, nausea, and vomiting. She was diagnosed with HELLP syndrome given low platelets (40) and elevated liver enzymes (221/205 AST/ALT). She was transferred to [facility] for further management. She underwent urgent low transverse section under general anesthesia on / at 29w0d with delivery of a liveborn female infant, Shruthi. weight was 2lb 15 oz and initial Apgars were 1, 2, and 7. The was stabilized and transferred to [facility]. She initially had CBC, CMP trended every [...] She will follow up with her primary BAG PRINTER for a Blood Pressure check. Consulting Teams During Hospitalization: Hospital Medicine: Dr. Elliott Obstetrics: Dr. Sherif Hollis Patient Condition @ Discharge: Good Discharge Disposition: [...] own af (more content not included)... Normal [facility] Comprehensive metabolic 2000 panelon 02-10-2023 Albumin [Mass/Vol] 3.1 g/dL Low 3.9-4.9 [facility] Comment on above: Order Comment: Speci men Type: BLOOD SPECIMEN Ordering Facility: [facility] Address: [address] [place] [address] Performed By: #### 2 4323-8, 7154-, 80494-7 #### [facility] CLIA [id number] [address] ALP [Catalytic activity/Vol] 85 U/L Normal 34-123 [facility] Comment on above: Order Comment: Speci men Type: BLOOD SPECIMEN Ordering Facility: [facility] Address: [address] [address] Performed By: #### 2 4323-8, 3084-1, 78600-5 #### [facility] CLIA [id number] [address] ALT With P-5'-P [Catalytic activity/Vol] 121 U/L High 7-38 [facility] Comment on above: Order Comment: Speci men Type: BLOOD SPECIMEN Ordering Facility: [facility] Address: [address] [place] [address] Performed By: #### 2 4323-8, 3084-1, 03101-4 #### [facility] CLIA [id number] [address] Anion gap [Moles/Vol] 10 mmol/L Normal 9-18 [facility] Comment on above: Order Comment: Speci men Type: BLOOD SPECIMEN Ordering Facility: [facility] Address: [address] [place] [address] Performed By: #### 2 4323-8, 3084-1, 25480-8 #### [facility] CLIA [id number] [address] AST With P-5'-P [Catalytic activity/Vol] 46 U/L High 13-35 [facility] Comment on above: Order Comment: Speci men Type: BLOOD SPECIMEN Ordering Facility: [facility] Address: [address] [place] [address] Performed By: #### 2 4323-8, 3084-1, 55687-8 #### [facility] CLIA [id number] [address] Bilirubin [Mass/Vol] 0.4 mg/dL Normal 0.2-1.3 [facility] Comment on above: Order Comment: Speci men Type: BLOOD SPECIMEN Ordering Facility: [facility] Address: [address] [place] [address] Performed By: #### 2 4323-8, 3084-1, 04354-0 #### [facility] CLIA [id number] [address] [facility] Calcium [Mass/Vol] 9.1 mg/dL Normal 8.5-10.2 [facility] Comment on above: Order Comment: Speci men Type: BLOOD SPECIMEN Ordering Facility: [facility] Address: [address] [address] Performed By: #### 2 4323-8, 3084-1, 41794-8 #### [facility] CLIA [id number] [address] [place] Chloride [Moles/Vol] 103 mmol/L Normal 97-105 [facility] Comment on above: Order Comment: Speci men Type: BLOOD SPECIMEN Ordering Facility: [facility] Address: [address] [address] Performed By: #### 2 4323-8, 3084-1, 81857-1 #### [facility] CLIA [id number] [address] [place] CO2 [Moles/Vol] 26 mmol/L Normal 22-30 [facility] Comment on above: Order Comment: Speci men Type: BLOOD SPECIMEN Ordering Facility: [facility] Address: [address] [place] [address] Performed By: #### 2 4323-8, 3084-1, 01836-0 #### [facility] CLIA [id number] [address] [place] Creatinine [Mass/Vol] 0.53 mg/dL Low 0.58-0.96 [facility] Comment on above: Order Comment: Speci men Type: BLOOD SPECIMEN Ordering Facility: [facility] Address: [address] [address] Performed By: #### 2 4323-8, 3084-1, 72606-3 #### [facility] CLIA [id number] [address] [place] ESTIMATED GLOMERULAR FILTRATION RATE 135 mL/min/1.73m??? Normal >=60 [facility] Comment on above: Order Comment: Speci men Type: BLOOD SPECIMEN Ordering Facility: [facility] Address: [address] [place] [address] Result Comment: Majo mated Glomerular Filtration Rate [...] GFR. Performed By: #### 2 4323-8, 3084-1, 62309-1 #### [facility] CLIA [id number] 1 [place] [address] [place] Glucose [Mass/Vol] 83 mg/dL Normal 74-99 [facility] Comment on above: Order Comment: Flor martell Type: BLOOD SPECIMEN Ordering Facility: [facility] Address: [address] [place] [address] Result Comment: The [place] [employer] Association (ADA) provides guidance for cutoff [...] Standards of Medical Care in Diabetes 2016, [place] [employer]. Diabetes Care. 2016.39(Suppl 1). Performed By: #### 2 4323-8, 3084-1, 43505-3 #### [facility] CLIA [id number] 1 [place] [address] [place] Potassium [Moles/Vol] 3.9 mmol/L Normal 3.7-5.1 [facility] Comment on above: Order Comment: Flor martell Type: BLOOD SPECIMEN Ordering Facility: [facility] Address: [address] [place] [address] Performed By: #### 2 4323-8, 3084-1, 97329-0 #### [facility] CLIA [id number] 1 [place] [address] [place] Protein [Mass/Vol] 5.6 g/dL Low 6.3-8.0 [facility] Comment on above: Order Comment: Speci men Type: BLOOD SPECIMEN Ordering Facility: [facility] Address: [address] [address] Performed By: #### 2 4323-8, 3084-1, 68431-9 #### [facility] CLIA [id number] [address] [place] Sodium [Moles/Vol] 139 mmol/L Normal 136-144 [facility] Comment on above: Order Comment: Speci men Type: BLOOD SPECIMEN Ordering Facility: [facility] Address: [address] [place] [address] Performed By: #### 2 4323-8, 3084-1, 81358-7 #### [facility] CLIA [id number] [address] [place] Urea nitrogen [Mass/Vol] 9 mg/dL Normal 7-21 [facility] Comment on above: Order Comment: Speci men Type: BLOOD SPECIMEN Ordering Facility: [facility] Address: [address] [place] [address] Performed By: #### 2 4323-8, 3084-1, 68253-8 #### [facility] CLIA [id number] [address] [place] NURSING PROGon 02-10-2023 NURSING PROG HNO ID: [id number] Author: Yuli Vera RN Service: Nursing Author Type: Registered Nurse Type: Nursing Progress Note Filed: 02/09/2023 10:10 PM Note Text: Patient received phone call from [facility] that is not doing well at this time and to have her phone available to be contacted. Patient and family upset and anxious and would like to go to [facility] to visit. Patient does have an order for a pass to visit at [facility]. However, this RN clarified with Dr. Sherwood the requirements of patient to visit throughout the night. She must return for vital signs checked q4h and q12 am lab draw at 0600. Spoke with patient and family and they are understanding of requirements. Normal [facility] CBC panel Auto (Bld)on 02-09 Erythrocyte distribution width (RBC) [Ratio] 15.6 % High 11.5-15.0 [facility] Comment on above: Order Comment: Speci men Type: BLOOD SPECIMEN Ordering Facility: [facility] Address: [address] [place] [address] Performed By: #### 5 8410-2 #### [facility] CLIA [id number] [address] Hematocrit (Bld) [Volume fraction] 26.0 % Low 36.0-46.0 [facility] Comment on above: Order Comment: Speci men Type: BLOOD SPECIMEN Ordering Facility: [facility] Address: [address] [place] [address] Performed By: #### 5 8410-2 #### [facility] CLIA [id number] [address] [place] [address] [facility] Hemoglobin (Bld) [Mass/Vol] 8.5 g/dL Low 11.5-15.5 [facility] Comment on above: Order Comment: Speci men Type: BLOOD SPECIMEN Ordering Facility: [facility] Address: [address] [place] [address] Performed By: #### 5 8410-2 #### [facility] CLIA [id number] [address] MCH (RBC) [Entitic mass] 27.6 pg Normal 26.0-34.0 [facility] Comment on above: Order Comment: Speci men Type: BLOOD SPECIMEN Ordering Facility: [facility] Address: [address] [place] [address] Performed By: #### 5 8410-2 #### [facility] CLIA [id number] [address] MCHC (RBC) [Mass/Vol] 32.7 g/dL Normal 30.5-36.0 [facility] Comment on above: Order Comment: Speci men Type: BLOOD SPECIMEN Ordering Facility: [facility] Address: [address] [address] Performed By: #### 5 8410-2 #### [facility] CLIA [id number] [address] MCV (RBC) [Entitic vol] 84.4 fL Normal 80.0-100.0 [facility] Comment on above: Order Comment: Speci men Type: BLOOD SPECIMEN Ordering Facility: [facility] Address: [address] [place] [address] Performed By: #### 5 8410-2 #### [facility] CLIA [id number] [address] Nucleated RBC (Bld) [#/Vol] 0.08 10*3/uL High <0.01 [facility] Comment on above: Order Comment: Speci men Type: BLOOD SPECIMEN Ordering Facility: [facility] Address: [address] [place] [address] Performed By: #### 5 8410-2 #### [facility] CLIA [id number] [address] Platelet mean volume (Bld) [Entitic vol] 10.7 fL Normal 9.0-12.7 [facility] Comment on above: Order Comment: Speci men Type: BLOOD SPECIMEN Ordering Facility: [facility] Address: [address] [place] [address] Performed By: #### 5 8410-2 #### [facility] CLIA [id number] [address] Platelets (Bld) [#/Vol] 143 10*3/uL Low 150-400 [facility] Comment on above: Order Comment: Speci men Type: BLOOD SPECIMEN Ordering Facility: [facility] Address: [address] [place] [address] Result Comment: No c lot detected. Performed By: #### 5 8410-2 #### [facility] CLIA [id number] [address] RBC (Bld) [#/Vol] 3.08 10*6/uL Low 3.90-5.20 [facility] Comment on above: Order Comment: Speci men Type: BLOOD SPECIMEN Ordering Facility: [facility] Address: [address] [place] [address] Performed By: #### 5 8410-2 #### [facility] CLIA [id number] [address] [place] WBC (Bld) [#/Vol] 17.67 10*3/uL High 3.70-11.00 [facility] Comment on above: Order Comment: Speci men Type: BLOOD SPECIMEN Ordering Facility: [facility] Address: [address] [place] [address] Performed By: #### 5 8410-2 #### [facility] CLIA [id number] [address] Erythrocyte distribution width (RBC) [Ratio] 15.8 % High 11.5-15.0 [facility] Comment on above: Order Comment: Speci men Type: BLOOD SPECIMEN Ordering Facility: [facility] Address: [address] [place] [address] Performed By: #### 5 8410-2 #### [facility] CLIA [id number] [address] Hematocrit (Bld) [Volume fraction] 21.2 % Low 36.0-46.0 [facility] Comment on above: Order Comment: Speci men Type: BLOOD SPECIMEN Ordering Facility: [facility] Address: [address] [place] [address] Performed By: #### 5 8410-2 #### [facility] CLIA [id number] [address] Hemoglobin (Bld) [Mass/Vol] 7.1 g/dL Low 11.5-15.5 [facility] Comment on above: Order Comment: Speci men Type: BLOOD SPECIMEN Ordering Facility: [facility] Address: [address] [place] [address] Performed By: #### 5 8410-2 #### [facility] CLIA [id number] [address] MCH (RBC) [Entitic mass] 28.1 pg Normal 26.0-34.0 [facility] Comment on above: Order Comment: Speci men Type: BLOOD SPECIMEN Ordering Facility: [facility] Address: [address] [place] [address] Performed By: #### 5 8410-2 #### [facility] CLIA [id number] [address] MCHC (RBC) [Mass/Vol] 33.5 g/dL Normal 30.5-36.0 [facility] Comment on above: Order Comment: Speci men Type: BLOOD SPECIMEN Ordering Facility: [facility] Address: [address] [place] [address] Performed By: #### 5 8410-2 #### [facility] CLIA [id number] [address] MCV (RBC) [Entitic vol] 83.8 fL Normal 80.0-100.0 [facility] Comment on above: Order Comment: Speci men Type: BLOOD SPECIMEN Ordering Facility: [facility] Address: [address] [place] [address] Performed By: #### 5 8410-2 #### [facility] CLIA [id number] [address] Nucleated RBC (Bld) [#/Vol] 0.07 10*3/uL High <0.01 [facility] Comment on above: Order Comment: Speci men Type: BLOOD SPECIMEN Ordering Facility: [facility] Address: [address] [place] [address] Performed By: #### 5 8410-2 #### [facility] CLIA [id number] [address] Platelet mean volume (Bld) [Entitic vol] 10.0 fL Normal 9.0-12.7 [facility] Comment on above: Order Comment: Speci men Type: BLOOD SPECIMEN Ordering Facility: [facility] Address: [address] [place] [address] Performed By: #### 5 8410-2 #### [facility] CLIA [id number] [address] Platelets (Bld) [#/Vol] 73 10*3/uL Low 150-400 [facility] Comment on above: Order Comment: Speci men Type: BLOOD SPECIMEN Ordering Facility: [facility] Address: [address] [place] [address] Result Comment: No c lot detected. Performed By: #### 5 8410-2 #### [facility] CLIA [id number] [address] RBC (Bld) [#/Vol] 2.53 10*6/uL Low 3.90-5.20 [facility] Comment on above: Order Comment: Speci men Type: BLOOD SPECIMEN Ordering Facility: [facility] Address: [address] [address] Performed By: #### 5 8410-2 #### [facility] CLIA [id number] [address] WBC (Bld) [#/Vol] 13.68 10*3/uL High 3.70-11.00 [facility] Comment on above: Order Comment: Speci men Type: BLOOD SPECIMEN Ordering Facility: [facility] Address: [address] [place] [address] Performed By: #### 5 8410-2 #### [facility] CLIA [id number] [address] Comprehensive metabolic 2000 panelon 02-09-2023 Albumin [Mass/Vol] 3.5 g/dL Low 3.9-4.9 [facility] Comment on above: Order Comment: Speci men Type: BLOOD SPECIMEN Ordering Facility: [facility] Address: [address] [place] [address] Performed By: #### 5 8410-2 #### [facility] CLIA [id number] [address] ALP [Catalytic activity/Vol] 96 U/L Normal 34-123 [facility] Comment on above: Order Comment: Speci men Type: BLOOD SPECIMEN Ordering Facility: [facility] Address: [address] [place] [address] Performed By: #### 5 8410-2 #### [facility] CLIA [id number] [address] [facility] ALT With P-5'-P [Catalytic activity/Vol] 157 U/L High 7-38 [facility] Comment on above: Order Comment: Speci men Type: BLOOD SPECIMEN Ordering Facility: [facility] Address: [address] [place] [address] Performed By: #### 5 8410-2 #### [facility] CLIA [id number] [address] Anion gap [Moles/Vol] 12 mmol/L Normal 9-18 [facility] Comment on above: Order Comment: Speci men Type: BLOOD SPECIMEN Ordering Facility: [facility] Address: [address] [place] [address] Performed By: #### 5 8410-2 #### [facility] CLIA [id number] [address] AST With P-5'-P [Catalytic activity/Vol] 67 U/L High 13-35 [facility] Comment on above: Order Comment: Speci men Type: BLOOD SPECIMEN Ordering Facility: [facility] Address: [address] [address] Performed By: #### 5 8410-2 #### [facility] CLIA [id number] [address] Bilirubin [Mass/Vol] 0.4 mg/dL Normal 0.2-1.3 [facility] Comment on above: Order Comment: Speci men Type: BLOOD SPECIMEN Ordering Facility: [facility] Address: [address] [address] Performed By: #### 5 8410-2 #### [facility] CLIA [id number] [address] Calcium [Mass/Vol] 9.8 mg/dL Normal 8.5-10.2 [facility] Comment on above: Order Comment: Speci men Type: BLOOD SPECIMEN Ordering Facility: [facility] Address: [address] [place] [address] Performed By: #### 5 8410-2 #### [facility] CLIA [id number] [address] [place] Chloride [Moles/Vol] 102 mmol/L Normal 97-105 [facility] Comment on above: Order Comment: Speci men Type: BLOOD SPECIMEN Ordering Facility: [facility] Address: [address] [place] [address] Performed By: #### 5 8410-2 #### [facility] CLIA [id number] [address] CO2 [Moles/Vol] 24 mmol/L Normal 22-30 [facility] Comment on above: Order Comment: Speci men Type: BLOOD SPECIMEN Ordering Facility: [facility] Address: [address] [place] [address] Performed By: #### 5 8410-2 #### [facility] CLIA [id number] [address] [place] Creatinine [Mass/Vol] 0.53 mg/dL Low 0.58-0.96 [facility] Comment on above: Order Comment: Speci men Type: BLOOD SPECIMEN Ordering Facility: [facility] Address: [address] [place] [address] Performed By: #### 5 8410-2 #### [facility] CLIA [id number] [address] [place] ESTIMATED GLOMERULAR FILTRATION RATE 135 mL/min/1.73m??? Normal >=60 [facility] Comment on above: Order Comment: Flor martell Type: BLOOD SPECIMEN Ordering Facility: [facility] Address: [address] [place], [place] [phone] Result Comment: Majo mated Glomerular Filtration Rate [...] GFR. Performed By: #### 5 8410-2 #### [facility] CLIA [id number] 1 [place] [address] [place] Glucose [Mass/Vol] 111 mg/dL High 74-99 [facility] Comment on above: Order Comment: Flor martell Type: BLOOD SPECIMEN Ordering Facility: [facility] Address: [address] [place], [place] [id number] Result Comment: The [place] [employer] (ADA) provides guidance for cutoff [...] Standards of Medical Care in Diabetes 2016, [place] [employer]. Diabetes Care. 2016.39(Suppl 1). Performed By: #### 5 8410-2 #### [facility] CLIA [id number] 1 [place] [address] [place] Potassium [Moles/Vol] 4.1 mmol/L Normal 3.7-5.1 [facility] Comment on above: Order Comment: Flor martell Type: BLOOD SPECIMEN Ordering Facility: [facility] Address: [address] [phone] Performed By: #### 5 8410-2 #### [facility] CLIA [id number] [address] [place] Protein [Mass/Vol] 6.2 g/dL Low 6.3-8.0 [facility] Comment on above: Order Comment: Speci men Type: BLOOD SPECIMEN Ordering Facility: [facility] Address: [address] [place] [address] Performed By: #### 5 8410-2 #### [facility] CLIA [id number] [address] [place] Sodium [Moles/Vol] 138 mmol/L Normal 136-144 [facility] Comment on above: Order Comment: Speci men Type: BLOOD SPECIMEN Ordering Facility: [facility] Address: [address] [place] [address] Performed By: #### 5 8410-2 #### [facility] CLIA [id number] [address] Urea nitrogen [Mass/Vol] 8 mg/dL Normal 7-21 [facility] Comment on above: Order Comment: Speci men Type: BLOOD SPECIMEN Ordering Facility: [facility] Address: [address] [place] [address] Performed By: #### 5 8410-2 #### [facility] CLIA [id number] [address] Albumin [Mass/Vol] 2.8 g/dL Low 3.9-4.9 [facility] Comment on above: Order Comment: Speci men Type: BLOOD SPECIMEN Ordering Facility: [facility] Address: [address] [address] Performed By: #### 5 8410-2 #### [facility] CLIA [id number] [address] [place] ALP [Catalytic activity/Vol] 75 U/L Normal 34-123 [facility] Comment on above: Order Comment: Speci men Type: BLOOD SPECIMEN Ordering Facility: [facility] Address: [address] [place] [address] Performed By: #### 5 8410-2 #### [facility] CLIA [id number] [address] [place] ALT With P-5'-P [Catalytic activity/Vol] 155 U/L High 7-38 [facility] Comment on above: Order Comment: Speci men Type: BLOOD SPECIMEN Ordering Facility: [facility] Address: [address] [place] [address] Performed By: #### 5 8410-2 #### [facility] CLIA [id number] [address] [place] Anion gap [Moles/Vol] 9 mmol/L Normal 9-18 [facility] Comment on above: Order Comment: Speci men Type: BLOOD SPECIMEN Ordering Facility: [facility] Address: [address] [place] [address] Performed By: #### 5 8410-2 #### [facility] CLIA [id number] [address] [facility] AST With P-5'-P [Catalytic activity/Vol] 95 U/L High 13-35 [facility] Comment on above: Order Comment: Speci men Type: BLOOD SPECIMEN Ordering Facility: [facility] Address: [address] [place] [address] Performed By: #### 5 8410-2 #### [facility] CLIA [id number] [address] [place] Bilirubin [Mass/Vol] 0.7 mg/dL Normal 0.2-1.3 [facility] Comment on above: Order Comment: Speci men Type: BLOOD SPECIMEN Ordering Facility: [facility] Address: [address] [place] [address] Performed By: #### 5 8410-2 #### [facility] CLIA [id number] [address] [facility] Calcium [Mass/Vol] 8.3 mg/dL Low 8.5-10.2 [facility] Comment on above: Order Comment: Speci men Type: BLOOD SPECIMEN Ordering Facility: [facility] Address: [address] [address] Performed By: #### 5 8410-2 #### [facility] CLIA [id number] [address] [facility] Chloride [Moles/Vol] 102 mmol/L Normal 97-105 [facility] Comment on above: Order Comment: Speci men Type: BLOOD SPECIMEN Ordering Facility: [facility] Address: [address] [place] [address] Performed By: #### 5 8410-2 #### [facility] CLIA [id number] [address] CO2 [Moles/Vol] 25 mmol/L Normal 22-30 [facility] Comment on above: Order Comment: Speci men Type: BLOOD SPECIMEN Ordering Facility: [facility] Address: [address] [place] [address] Performed By: #### 5 8410-2 #### [facility] CLIA [id number] [address] Creatinine [Mass/Vol] 0.55 mg/dL Low 0.58-0.96 [facility] Comment on above: Order Comment: Speci men Type: BLOOD SPECIMEN Ordering Facility: [facility] Address: [address] [place] [address] Performed By: #### 5 8410-2 #### [facility] CLIA [id number] [address] ESTIMATED GLOMERULAR FILTRATION RATE 134 mL/min/1.73m??? Normal >=60 [facility] Comment on above: Order Comment: Speci men Type: BLOOD SPECIMEN Ordering Facility: [facility] Address: [address] [place] [address] Result Comment: Majo mated Glomerular Filtration Rate [...] GFR. Performed By: #### 5 8410-2 #### [facility] CLIA [id number] 1 [place] [address] [place] Glucose [Mass/Vol] 82 mg/dL Normal 74-99 [facility] Comment on above: Order Comment: Flor martell Type: BLOOD SPECIMEN Ordering Facility: [facility] Address: [address] [place] [address] Result Comment: The [place] Diabetes [employer] (ADA) provides guidance for cutoff [...] Standards of Medical Care in Diabetes 2016, [place] [employer]. Diabetes Care. 2016.39(Suppl 1). Performed By: #### 5 8410-2 #### [facility] CLIA [id number] 1 [place] [address] [place] Potassium [Moles/Vol] 3.9 mmol/L Normal 3.7-5.1 [facility] Comment on above: Order Comment: Flor martell Type: BLOOD SPECIMEN Ordering Facility: [facility] Address: [address] [address] Performed By: #### 5 8410-2 #### [facility] CLIA [id number] 1 [place] [address] [place] Protein [Mass/Vol] 5.0 g/dL Low 6.3-8.0 [facility] Comment on above: Order Comment: Flor martell Type: BLOOD SPECIMEN Ordering Facility: [facility] Address: [address] [place] [address] Performed By: #### 5 8410-2 #### [facility] CLIA [id number] [address] Sodium [Moles/Vol] 136 mmol/L Normal 136-144 [facility] Comment on above: Order Comment: Speci men Type: BLOOD SPECIMEN Ordering Facility: [facility] Address: [address] [address] Performed By: #### 5 8410-2 #### [facility] CLIA [id number] [address] [place] [facility] Urea nitrogen [Mass/Vol] 8 mg/dL Normal 7-21 [facility] Comment on above: Order Comment: Speci men Type: BLOOD SPECIMEN Ordering Facility: [facility] Address: [address] [place] [address] Performed By: #### 5 8410-2 #### [facility] CLIA [id number] [address] CBC panel Auto (Bld)on 02-08 Erythrocyte distribution width (RBC) [Ratio] 15.3 % High 11.5-15.0 [facility] Comment on above: Order Comment: Speci men Type: BLOOD SPECIMEN Ordering Facility: [facility] Address: [address] [place] [address] Performed By: #### 5 8410-2 #### [facility] CLIA [id number] [address] Hematocrit (Bld) [Volume fraction] 21.5 % Low 36.0-46.0 [facility] Comment on above: Order Comment: Speci men Type: BLOOD SPECIMEN Ordering Facility: [facility] Address: [address] [place] [address] Performed By: #### 5 8410-2 #### [facility] CLIA [id number] [address] Hemoglobin (Bld) [Mass/Vol] 7.3 g/dL Low 11.5-15.5 [facility] Comment on above: Order Comment: Speci men Type: BLOOD SPECIMEN Ordering Facility: [facility] Address: [address] [address] Performed By: #### 5 8410-2 #### [facility] CLIA [id number] [address] MCH (RBC) [Entitic mass] 28.3 pg Normal 26.0-34.0 [facility] Comment on above: Order Comment: Speci men Type: BLOOD SPECIMEN Ordering Facility: [facility] Address: [address] [address] Performed By: #### 5 8410-2 #### [facility] CLIA [id number] [address] MCHC (RBC) [Mass/Vol] 34.0 g/dL Normal 30.5-36.0 [facility] Comment on above: Order Comment: Speci men Type: BLOOD SPECIMEN Ordering Facility: [facility] Address: [address] [address] Performed By: #### 5 8410-2 #### [facility] CLIA [id number] [address] MCV (RBC) [Entitic vol] 83.3 fL Normal 80.0-100.0 [facility] Comment on above: Order Comment: Speci men Type: BLOOD SPECIMEN Ordering Facility: [facility] Address: [address] [address] Performed By: #### 5 8410-2 #### [facility] CLIA [id number] [address] Nucleated RBC (Bld) [#/Vol] 0.06 10*3/uL High <0.01 [facility] Comment on above: Order Comment: Speci men Type: BLOOD SPECIMEN Ordering Facility: [facility] Address: [address] [address] Performed By: #### 5 8410-2 #### [facility] CLIA [id number] [address] Platelet mean volume (Bld) [Entitic vol] 10.2 fL Normal 9.0-12.7 [facility] Comment on above: Order Comment: Speci men Type: BLOOD SPECIMEN Ordering Facility: [facility] Address: [address] [address] Performed By: #### 5 8410-2 #### [facility] CLIA [id number] [address] [facility] Platelets (Bld) [#/Vol] 69 10*3/uL Low 150-400 [facility] Comment on above: Order Comment: Speci men Type: BLOOD SPECIMEN Ordering Facility: [facility] Address: [address] [place] [address] Result Comment: No c lot detected. Performed By: #### 5 8410-2 #### [facility] CLIA [id number] [address] [place] RBC (Bld) [#/Vol] 2.58 10*6/uL Low 3.90-5.20 [facility] Comment on above: Order Comment: Speci men Type: BLOOD SPECIMEN Ordering Facility: [facility] Address: [address] [address] Performed By: #### 5 8410-2 #### [facility] CLIA [id number] [address] [facility] WBC (Bld) [#/Vol] 13.63 10*3/uL High 3.70-11.00 [facility] Comment on above: Order Comment: Speci men Type: BLOOD SPECIMEN Ordering Facility: [facility] Address: [address] [address] Performed By: #### 5 8410-2 #### [facility] CLIA [id number] [address] Erythrocyte distribution width (RBC) [Ratio] 15.5 % High 11.5-15.0 [facility] Comment on above: Order Comment: Speci men Type: BLOOD SPECIMEN Ordering Facility: [facility] Address: [address] [address] Performed By: #### 5 8410-2 #### [facility] CLIA [id number] [address] Hematocrit (Bld) [Volume fraction] 23.5 % Low 36.0-46.0 [facility] Comment on above: Order Comment: Speci men Type: BLOOD SPECIMEN Ordering Facility: [facility] Address: [address] [place] [address] Performed By: #### 5 8410-2 #### [facility] CLIA [id number] [address] Hemoglobin (Bld) [Mass/Vol] 7.8 g/dL Low 11.5-15.5 [facility] Comment on above: Order Comment: Speci men Type: BLOOD SPECIMEN Ordering Facility: [facility] Address: [address] [place] [address] Performed By: #### 5 8410-2 #### [facility] CLIA [id number] [address] MCH (RBC) [Entitic mass] 27.4 pg Normal 26.0-34.0 [facility] Comment on above: Order Comment: Speci men Type: BLOOD SPECIMEN Ordering Facility: [facility] Address: [address] [place] [address] Performed By: #### 5 8410-2 #### [facility] CLIA [id number] [address] MCHC (RBC) [Mass/Vol] 33.2 g/dL Normal 30.5-36.0 [facility] Comment on above: Order Comment: Speci men Type: BLOOD SPECIMEN Ordering Facility: [facility] Address: [address] [place] [address] Performed By: #### 5 8410-2 #### [facility] CLIA [id number] [address] [facility] MCV (RBC) [Entitic vol] 82.5 fL Normal 80.0-100.0 [facility] Comment on above: Order Comment: Speci men Type: BLOOD SPECIMEN Ordering Facility: [facility] Address: [address] [address] Performed By: #### 5 8410-2 #### [facility] CLIA [id number] [address] [place] Nucleated RBC (Bld) [#/Vol] 10*3/uL Normal <0.01 [facility] Comment on above: Order Comment: Speci men Type: BLOOD SPECIMEN Ordering Facility: [facility] Address: [address] [address] Performed By: #### 5 8410-2 #### [facility] CLIA [id number] [address] [place] Platelet mean volume (Bld) [Entitic vol] 10.5 fL Normal 9.0-12.7 [facility] Comment on above: Order Comment: Speci men Type: BLOOD SPECIMEN Ordering Facility: [facility] Address: [address] [address] Performed By: #### 5 8410-2 #### [facility] CLIA [id number] [address] [place] Platelets (Bld) [#/Vol] 66 10*3/uL Low 150-400 [facility] Comment on above: Order Comment: Speci men Type: BLOOD SPECIMEN Ordering Facility: [facility] Address: [address] [address] Result Comment: No c lot detected. Performed By: #### 5 8410-2 #### [facility] CLIA [id number] [address] [place] RBC (Bld) [#/Vol] 2.85 10*6/uL Low 3.90-5.20 [facility] Comment on above: Order Comment: Speci men Type: BLOOD SPECIMEN Ordering Facility: [facility] Address: [address] [place] [address] Performed By: #### 5 8410-2 #### [facility] CLIA [id number] [address] [facility] WBC (Bld) [#/Vol] 11.79 10*3/uL High 3.70-11.00 [facility] Comment on above: Order Comment: Speci men Type: BLOOD SPECIMEN Ordering Facility: [facility] Address: [address] [place] [address] Performed By: #### 5 8410-2 #### [facility] CLIA [id number] [address] Erythrocyte distribution width (RBC) [Ratio] 15.2 % High 11.5-15.0 [facility] Comment on above: Order Comment: Speci men Type: BLOOD SPECIMEN Ordering Facility: [facility] Address: [address] [place] [address] Performed By: #### 5 8410-2 #### [facility] CLIA [id number] [address] Hematocrit (Bld) [Volume fraction] 23.7 % Low 36.0-46.0 [facility] Comment on above: Order Comment: Speci men Type: BLOOD SPECIMEN Ordering Facility: [facility] Address: [address] [place] [address] Performed By: #### 5 8410-2 #### [facility] CLIA [id number] [address] Hemoglobin (Bld) [Mass/Vol] 8.0 g/dL Low 11.5-15.5 [facility] Comment on above: Order Comment: Speci men Type: BLOOD SPECIMEN Ordering Facility: [facility] Address: [address] [place] [address] Performed By: #### 5 8410-2 #### [facility] CLIA [id number] [address] MCH (RBC) [Entitic mass] 27.9 pg Normal 26.0-34.0 [facility] Comment on above: Order Comment: Speci men Type: BLOOD SPECIMEN Ordering Facility: [facility] Address: [address] [address] Performed By: #### 5 8410-2 #### [facility] CLIA [id number] [address] MCHC (RBC) [Mass/Vol] 33.8 g/dL Normal 30.5-36.0 [facility] Comment on above: Order Comment: Speci men Type: BLOOD SPECIMEN Ordering Facility: [facility] Address: [address] [address] Performed By: #### 5 8410-2 #### [facility] CLIA [id number] [address] MCV (RBC) [Entitic vol] 82.6 fL Normal 80.0-100.0 [facility] Comment on above: Order Comment: Speci men Type: BLOOD SPECIMEN Ordering Facility: [facility] Address: [address] [address] Performed By: #### 5 8410-2 #### [facility] CLIA [id number] [address] Nucleated RBC (Bld) [#/Vol] 10*3/uL Normal <0.01 [facility] Comment on above: Order Comment: Speci men Type: BLOOD SPECIMEN Ordering Facility: [facility] Address: [address] [address] Performed By: #### 5 8410-2 #### [facility] CLIA [id number] [address] Platelet mean volume (Bld) [Entitic vol] 10.1 fL Normal 9.0-12.7 [facility] Comment on above: Order Comment: Speci men Type: BLOOD SPECIMEN Ordering Facility: [facility] Address: [address] [address] Performed By: #### 5 8410-2 #### [facility] CLIA [id number] [address] Platelets (Bld) [#/Vol] 83 10*3/uL Low 150-400 [facility] Comment on above: Order Comment: Speci men Type: BLOOD SPECIMEN Ordering Facility: [facility] Address: [address] [place] [address] Result Comment: No c lot detected. Performed By: #### 5 8410-2 #### [facility] CLIA [id number] [address] RBC (Bld) [#/Vol] 2.87 10*6/uL Low 3.90-5.20 [facility] Comment on above: Order Comment: Speci men Type: BLOOD SPECIMEN Ordering Facility: [facility] Address: [address] [place] [address] Performed By: #### 5 8410-2 #### [facility] CLIA [id number] [address] [facility] WBC (Bld) [#/Vol] 13.01 10*3/uL High 3.70-11.00 [facility] Comment on above: Order Comment: Speci men Type: BLOOD SPECIMEN Ordering Facility: [facility] Address: [address] [place] [address] Performed By: #### 5 8410-2 #### [facility] CLIA [id number] [address] [facility] Erythrocyte distribution width (RBC) [Ratio] 14.8 % Normal 11.5-15.0 [facility] Comment on above: Order Comment: Speci men Type: BLOOD SPECIMEN Ordering Facility: [facility] Address: [address] [place] [address] Performed By: #### 2 4323-8, 3084-1, 24459-0 #### [facility] CLIA [id number] [address] Hematocrit (Bld) [Volume fraction] 23.4 % Low 36.0-46.0 [facility] Comment on above: Order Comment: Speci men Type: BLOOD SPECIMEN Ordering Facility: [facility] Address: [address] [place], [place] [address] Performed By: #### 2 4323-8, 3084-1, 82168-6 #### [facility] CLIA [id number] [address] Hemoglobin (Bld) [Mass/Vol] 7.8 g/dL Low 11.5-15.5 [facility] Comment on above: Order Comment: Speci men Type: BLOOD SPECIMEN Ordering Facility: [facility] Address: [address] [address] Performed By: #### 2 4323-8, 3084-1, 84919-5 #### [facility] CLIA [id number] [address] MCH (RBC) [Entitic mass] 27.7 pg Normal 26.0-34.0 [facility] Comment on above: Order Comment: Speci men Type: BLOOD SPECIMEN Ordering Facility: [facility] Address: [address] [address] Performed By: #### 2 432-8, 3083-1, 90556-6 #### [facility] CLIA [id number] [address] MCHC (RBC) [Mass/Vol] 33.3 g/dL Normal 30.5-36.0 [facility] Comment on above: Order Comment: Speci men Type: BLOOD SPECIMEN Ordering Facility: [facility] Address: [address] [address] Performed By: #### 2 4323-8, 3083-1, 34187-5 #### [facility] CLIA [id number] [address] MCV (RBC) [Entitic vol] 83.0 fL Normal 80.0-100.0 [facility] Comment on above: Order Comment: Speci men Type: BLOOD SPECIMEN Ordering Facility: [facility] Address: [address] [address] Performed By: #### 2 4323-8, 4-1, 77633-0 #### [facility] CLIA [id number] [address] [place] Nucleated RBC (Bld) [#/Vol] 10*3/uL Normal <0.01 [facility] Comment on above: Order Comment: Speci men Type: BLOOD SPECIMEN Ordering Facility: [facility] Address: [address] [place] [address] Performed By: #### 2 4323-8, 3083-, 67414-7 #### [facility] CLIA [id number] [address] [facility] Platelet mean volume (Bld) [Entitic vol] 11.0 fL Normal 9.0-12.7 [facility] Comment on above: Order Comment: Speci men Type: BLOOD SPECIMEN Ordering Facility: [facility] Address: [address] [place] [address] Performed By: #### 2 4323-8, 3083-, 71643-1 #### [facility] CLIA [id number] [address] Platelets (Bld) [#/Vol] 95 10*3/uL Low 150-400 [facility] Comment on above: Order Comment: Speci men Type: BLOOD SPECIMEN Ordering Facility: [facility] Address: [address] [place] [address] Result Comment: No c lot detected. Performed By: #### 2 4323-8, 3083-, 42550-6 #### [facility] CLIA [id number] [address] [facility] RBC (Bld) [#/Vol] 2.82 10*6/uL Low 3.90-5.20 [facility] Comment on above: Order Comment: Speci men Type: BLOOD SPECIMEN Ordering Facility: [facility] Address: [address] [place] [address] Performed By: #### 2 4323-8, 3083-, 78169-6 #### [facility] CLIA [id number] [address] [facility] WBC (Bld) [#/Vol] 14.31 10*3/uL High 3.70-11.00 [facility] Comment on above: Order Comment: Speci men Type: BLOOD SPECIMEN Ordering Facility: [facility] Address: [address] [place] [address] Performed By: #### 2 4323-8, 3084-1, 77250-4 #### [facility] CLIA [id number] [address] [place] [address] Erythrocyte distribution width (RBC) [Ratio] 14.6 % Normal 11.5-15.0 [facility] Comment on above: Order Comment: Speci men Type: BLOOD SPECIMEN Ordering Facility: [facility] Address: [address] [place] [address] Performed By: #### 2 4323-8, 3084-1, 60208-5 #### [facility] CLIA [id number] [address] [place] [address] Hematocrit (Bld) [Volume fraction] 26.6 % Low 36.0-46.0 [facility] Comment on above: Order Comment: Speci men Type: BLOOD SPECIMEN Ordering Facility: [facility] Address: [address] [place] [address] Performed By: #### 2 4323-8, 3084-1, 48799-5 #### [facility] CLIA [id number] [address] [place] [address] [facility] Hemoglobin (Bld) [Mass/Vol] 9.1 g/dL Low 11.5-15.5 [facility] Comment on above: Order Comment: Speci men Type: BLOOD SPECIMEN Ordering Facility: [facility] Address: [address] [place] [address] Performed By: #### 2 4323-8, 3084-1, 61423-2 #### [facility] CLIA [id number] [address] MCH (RBC) [Entitic mass] 27.8 pg Normal 26.0-34.0 [facility] Comment on above: Order Comment: Speci men Type: BLOOD SPECIMEN Ordering Facility: [facility] Address: [address] [place] [address] Performed By: #### 2 4323-8, 3083-08, 00854-3 #### [facility] CLIA [id number] [address] MCHC (RBC) [Mass/Vol] 34.2 g/dL Normal 30.5-36.0 [facility] Comment on above: Order Comment: Speci men Type: BLOOD SPECIMEN Ordering Facility: [facility] Address: [address] [place] [address] Performed By: #### 2 4323-8, 3083-08, #### [facility] CLIA [id number] [address] [place] [address] [facility] MCV (RBC) [Entitic vol] 81.3 fL Normal 80.0-100.0 [facility] Comment on above: Order Comment: Speci men Type: BLOOD SPECIMEN Ordering Facility: [facility] Address: [address] [place] [address] Performed By: #### 2 432-8, 3083-08, #### [facility] CLIA [id number] [address] [place] [address] Nucleated RBC (Bld) [#/Vol] 10*3/uL Normal <0.01 [facility] Comment on above: Order Comment: Speci men Type: BLOOD SPECIMEN Ordering Facility: [facility] Address: [address] [place] [address] Performed By: #### 2 4323-8, 3083-08, #### [facility] CLIA [id number] [address] Platelet mean volume (Bld) [Entitic vol] 10.9 fL Normal 9.0-12.7 [facility] Comment on above: Order Comment: Speci men Type: BLOOD SPECIMEN Ordering Facility: [facility] Address: [address] [place] [address] Performed By: #### 2 4323-8, 3084-1, 71949-1 #### [facility] CLIA [id number] [address] Platelets (Bld) [#/Vol] 121 10*3/uL Low 150-400 [facility] Comment on above: Order Comment: Speci men Type: BLOOD SPECIMEN Ordering Facility: [facility] Address: [address] [place] [address] Performed By: #### 2 4323-8, 3084-1, 15029-5 #### [facility] CLIA [id number] [address] [facility] RBC (Bld) [#/Vol] 3.27 10*6/uL Low 3.90-5.20 [facility] Comment on above: Order Comment: Speci men Type: BLOOD SPECIMEN Ordering Facility: [facility] Address: [address] [place] [address] Performed By: #### 2 4323-8, 3084-1, 92251-8 #### [facility] CLIA [id number] [address] [place] [address] [facility] WBC (Bld) [#/Vol] 15.95 10*3/uL High 3.70-11.00 [facility] Comment on above: Order Comment: Speci men Type: BLOOD SPECIMEN Ordering Facility: [facility] Address: [address] [place] [address] Performed By: #### 2 4323-8, 3084-1, 41922-1 #### [facility] CLIA [id number] [address] Calcium.ionized [Moles/Vol]o n 02-08-2023 Calcium.ionized (BldV) [Mass/Vol] 1.08 mmol/L Normal 1.08-1.30 [facility] Comment on above: Order Comment: Speci men Type: BLOOD SPECIMEN Ordering Facility: [facility] Address: [address] [address] Performed By: #### 5 8410-2 #### [facility] CLIA [id number] [address] Calcium.ionized adjusted to pH 7.4 (Bld) [Moles/Vol] 1.09 mmol/L Normal 1.08-1.30 [facility] Comment on above: Order Comment: Speci men Type: BLOOD SPECIMEN Ordering Facility: [facility] Address: [address] [address] Performed By: #### 5 8410-2 #### [facility] CLIA [id number] [address] Comprehensive metabolic 2000 panelon 02-08-2023 Albumin [Mass/Vol] 2.9 g/dL Low 3.9-4.9 [facility] Comment on above: Order Comment: Speci men Type: BLOOD SPECIMEN Ordering Facility: [facility] Address: [address] [address] Performed By: #### 2 4323-8, 3084-1, 99422-1 #### [facility] CLIA [id number] [address] [place] ALP [Catalytic activity/Vol] 80 U/L Normal 34-123 [facility] Comment on above: Order Comment: Speci men Type: BLOOD SPECIMEN Ordering Facility: [facility] Address: [address] [address] Performed By: #### 2 4323-8, 3084-1, 07929-1 #### [facility] CLIA [id number] [address] ALT With P-5'-P [Catalytic activity/Vol] 178 U/L High 7-38 [facility] Comment on above: Order Comment: Speci men Type: BLOOD SPECIMEN Ordering Facility: [facility] Address: [address] [address] Performed By: #### 2 4323-8, 3084-1, 39534-3 #### [facility] CLIA [id number] [address] [place] Anion gap [Moles/Vol] 10 mmol/L Normal 9-18 [facility] Comment on above: Order Comment: Speci men Type: BLOOD SPECIMEN Ordering Facility: [facility] Address: [address] [place] [address] Performed By: #### 2 4323-8, 3084-1, 27333-5 #### [facility] CLIA [id number] [address] [place] AST With P-5'-P [Catalytic activity/Vol] 126 U/L High 13-35 [facility] Comment on above: Order Comment: Speci men Type: BLOOD SPECIMEN Ordering Facility: [facility] Address: [address] [place] [address] Performed By: #### 2 4323-8, 3083-1, 25337-9 #### [facility] CLIA [id number] [address] [place] Bilirubin [Mass/Vol] 1.1 mg/dL Normal 0.2-1.3 [facility] Comment on above: Order Comment: Speci men Type: BLOOD SPECIMEN Ordering Facility: [facility] Address: [address] [place] [address] Performed By: #### 2 4323-8, 3083-1, 62137-9 #### [facility] CLIA [id number] [address] [facility] Calcium [Mass/Vol] 8.2 mg/dL Low 8.5-10.2 [facility] Comment on above: Order Comment: Speci men Type: BLOOD SPECIMEN Ordering Facility: [facility] Address: [address] [place] [address] Performed By: #### 2 4323-8, 3084-1, 68900-1 #### [facility] CLIA [id number] [address] [place] Chloride [Moles/Vol] 103 mmol/L Normal 97-105 [facility] Comment on above: Order Comment: Speci men Type: BLOOD SPECIMEN Ordering Facility: [facility] Address: [address] [address] Performed By: #### 2 4323-8, 3083-1, 41017-6 #### [facility] CLIA [id number] [address] CO2 [Moles/Vol] 24 mmol/L Normal 22-30 [facility] Comment on above: Order Comment: Speci men Type: BLOOD SPECIMEN Ordering Facility: [facility] Address: [address] [address] Performed By: #### 2 4323-8, 3083-08, #### [facility] CLIA [id number] [address] [facility] Creatinine [Mass/Vol] 0.62 mg/dL Normal 0.58-0.96 [facility] Comment on above: Order Comment: Speci men Type: BLOOD SPECIMEN Ordering Facility: [facility] Address: [address] [place] [address] Performed By: #### 2 4323-8, 3083-08, #### [facility] CLIA [id number] [address] [place] [address] ESTIMATED GLOMERULAR FILTRATION RATE 130 mL/min/1.73m??? Normal >=60 [facility] Comment on above: Order Comment: Speci men Type: BLOOD SPECIMEN Ordering Facility: [facility] Address: [address] [place] [address] Result Comment: Majo mated Glomerular Filtration Rate [...] actual GFR. Performed By: #### 2 4323-8, 3083-08, 59031-5 #### [facility] CLIA [id number] [address] [place] [address] [place] Glucose [Mass/Vol] 82 mg/dL Normal 74-99 [facility] Comment on above: Order Comment: Flor martell Type: BLOOD SPECIMEN Ordering Facility: [facility] Address: [address] [place] [address] Result Comment: The [place] [employer] (ADA) provides guidance for cutoff [...] Standards of Medical Care in Diabetes 2016, [place] [employer]. Diabetes Care. 2016.39(Suppl 1). Performed By: #### 2 4323-8, 3084-1, 36175-9 #### [facility] CLIA [id number] 1 [place] [address] [place] Potassium [Moles/Vol] 3.9 mmol/L Normal 3.7-5.1 [facility] Comment on above: Order Comment: Flor martell Type: BLOOD SPECIMEN Ordering Facility: [facility] Address: [address] [place] [address] Performed By: #### 2 4323-8, 3084-1, 63775-1 #### [facility] CLIA [id number] 1 [place] [address] [place] Protein [Mass/Vol] 5.0 g/dL Low 6.3-8.0 [facility] Comment on above: Order Comment: Flor martell Type: BLOOD SPECIMEN Ordering Facility: [facility] Address: [address] [place] [address] Performed By: #### 2 4323-8, 3084-1, 87671-2 #### [facility] CLIA [id number] [address] [facility] Sodium [Moles/Vol] 137 mmol/L Normal 136-144 [facility] Comment on above: Order Comment: Speci men Type: BLOOD SPECIMEN Ordering Facility: [facility] Address: [address] [place] [address] Performed By: #### 2 4323-8, 3084-1, 97009-4 #### [facility] CLIA [id number] [address] [place] Urea nitrogen [Mass/Vol] 8 mg/dL Normal 7-21 [facility] Comment on above: Order Comment: Speci men Type: BLOOD SPECIMEN Ordering Facility: [facility] Address: [address] [place] [address] Performed By: #### 2 4323-8, 3084-1, 37595-9 #### [facility] CLIA [id number] [address] Albumin [Mass/Vol] 3.0 g/dL Low 3.9-4.9 [facility] Comment on above: Order Comment: Speci men Type: BLOOD SPECIMEN Ordering Facility: [facility] Address: [address] [place] [address] Performed By: #### 2 4323-8, 3084-1, 37578-6 #### [facility] CLIA [id number] [address] [facility] ALP [Catalytic activity/Vol] 77 U/L Normal 34-123 [facility] Comment on above: Order Comment: Speci men Type: BLOOD SPECIMEN Ordering Facility: [facility] Address: [address] [place] [address] Performed By: #### 2 4323-8, 3084-1, 91708-5 #### [facility] CLIA [id number] [address] [place] ALT With P-5'-P [Catalytic activity/Vol] 196 U/L High 7-38 [facility] Comment on above: Order Comment: Speci men Type: BLOOD SPECIMEN Ordering Facility: [facility] Address: [address] [address] Performed By: #### 2 4323-8, 3084-1, 75024-3 #### [facility] CLIA [id number] [address] Anion gap [Moles/Vol] 10 mmol/L Normal 9-18 [facility] Comment on above: Order Comment: Speci men Type: BLOOD SPECIMEN Ordering Facility: [facility] Address: [address] [address] Performed By: #### 2 4323-8, 3084-1, 99805-2 #### [facility] CLIA [id number] [address] [place] AST With P-5'-P [Catalytic activity/Vol] 163 U/L High 13-35 [facility] Comment on above: Order Comment: Speci men Type: BLOOD SPECIMEN Ordering Facility: [facility] Address: [address] [address] Performed By: #### 2 4323-8, 4-1, 50955-9 #### [facility] CLIA [id number] [address] [place] Bilirubin [Mass/Vol] 1.3 mg/dL Normal 0.2-1.3 [facility] Comment on above: Order Comment: Speci men Type: BLOOD SPECIMEN Ordering Facility: [facility] Address: [address] [address] Performed By: #### 2 4323-8, 3084-1, 38475-1 #### [facility] CLIA [id number] [address] [place] Calcium [Mass/Vol] 7.9 mg/dL Low 8.5-10.2 [facility] Comment on above: Order Comment: Speci men Type: BLOOD SPECIMEN Ordering Facility: [facility] Address: [address] [address] Performed By: #### 2 4323-8, 3084-1, 73785-5 #### [facility] CLIA [id number] [address] [place] Chloride [Moles/Vol] 104 mmol/L Normal 97-105 [facility] Comment on above: Order Comment: Speci men Type: BLOOD SPECIMEN Ordering Facility: [facility] Address: [address] [place] [address] Performed By: #### 2 4323-8, 3084-1, 35442-5 #### [facility] CLIA [id number] [address] [place] CO2 [Moles/Vol] 24 mmol/L Normal 22-30 [facility] Comment on above: Order Comment: Speci men Type: BLOOD SPECIMEN Ordering Facility: [facility] Address: [address] [place] [address] Performed By: #### 2 4323-8, 3084-1, 72056-0 #### [facility] CLIA [id number] [address] Creatinine [Mass/Vol] 0.58 mg/dL Normal 0.58-0.96 [facility] Comment on above: Order Comment: Speci men Type: BLOOD SPECIMEN Ordering Facility: [facility] Address: [address] [place] [address] Performed By: #### 2 4323-8, 3084-1, 16934-6 #### [facility] CLIA [id number] [address] ESTIMATED GLOMERULAR FILTRATION RATE 132 mL/min/1.73m??? Normal >=60 [facility] Comment on above: Order Comment: Speci men Type: BLOOD SPECIMEN Ordering Facility: [facility] Address: [address] [place] [address] Result Comment: Majo mated Glomerular Filtration Rate [...] GFR. Performed By: #### 2 4323-8, 3084-1, 47442-7 #### [facility] CLIA [id number] 1 [place] [address] [place] Glucose [Mass/Vol] 82 mg/dL Normal 74-99 [facility] Comment on above: Order Comment: Flor martell Type: BLOOD SPECIMEN Ordering Facility: [facility] Address: [address] [place], [place] [id number] Result Comment: The [place] [employer] (ADA) provides guidance for cutoff [...] Standards of Medical Care in Diabetes 2016, [place] [employer]. Diabetes Care. 2016.39(Suppl 1). Performed By: #### 2 4323-8, 3084-1, 99745-9 #### [facility] CLIA [id number] 1 [place] [address] [place] Potassium [Moles/Vol] 3.9 mmol/L Normal 3.7-5.1 [facility] Comment on above: Order Comment: Flor martell Type: BLOOD SPECIMEN Ordering Facility: [facility] Address: [address] [place] [address] Performed By: #### 2 4323-8, 3084-1, 97487-6 #### [facility] CLIA [id number] 1 [place] [address] [place] Protein [Mass/Vol] 5.1 g/dL Low 6.3-8.0 [facility] Comment on above: Order Comment: Speci men Type: BLOOD SPECIMEN Ordering Facility: [facility] Address: [address] [address] Performed By: #### 2 4323-8, 3084-1, 49854-8 #### [facility] CLIA [id number] [address] [place] Sodium [Moles/Vol] 138 mmol/L Normal 136-144 [facility] Comment on above: Order Comment: Speci men Type: BLOOD SPECIMEN Ordering Facility: [facility] Address: [address] [address] Performed By: #### 2 4323-8, 3084-1, 28614-8 #### [facility] CLIA [id number] [address] [place] Urea nitrogen [Mass/Vol] 8 mg/dL Normal 7-21 [facility] Comment on above: Order Comment: Speci men Type: BLOOD SPECIMEN Ordering Facility: [facility] Address: [address] [place] [address] Performed By: #### 2 4323-8, 3083-1, 50471-6 #### [facility] CLIA [id number] [address] [place] Albumin [Mass/Vol] 2.9 g/dL Low 3.9-4.9 [facility] Comment on above: Order Comment: Speci men Type: BLOOD SPECIMEN Ordering Facility: [facility] Address: [address] [address] Performed By: #### 2 4323-8, 3083-1, 87246-6 #### [facility] CLIA [id number] 1 [place] [address] [place] ALP [Catalytic activity/Vol] 72 U/L Normal 34-123 [facility] Comment on above: Order Comment: Speci men Type: BLOOD SPECIMEN Ordering Facility: [facility] Address: [address] [place] [address] Performed By: #### 2 4323-8, 4-1, 30485-0 #### [facility] CLIA [id number] [address] [place] With P-5'-P [Catalytic activity/Vol] 211 U/L High 7-38 [facility] Comment on above: Order Comment: Speci men Type: BLOOD SPECIMEN Ordering Facility: [facility] Address: [address] [place] [address] Performed By: #### 2 4323-8, 3084-1, 91966-4 #### [facility] CLIA [id number] [address] Anion gap [Moles/Vol] 10 mmol/L Normal 9-18 [facility] Comment on above: Order Comment: Speci men Type: BLOOD SPECIMEN Ordering Facility: [facility] Address: [address] [place] [address] Performed By: #### 2 4323-8, 3084-1, 08676-3 #### [facility] CLIA [id number] [address] [place] With P-5'-P [Catalytic activity/Vol] 201 U/L High 13-35 [facility] Comment on above: Order Comment: Speci men Type: BLOOD SPECIMEN Ordering Facility: [facility] Address: [address] [place] [address] Performed By: #### 2 4323-8, 3084-1, 88815-8 #### [facility] CLIA [id number] [address] [facility] Bilirubin [Mass/Vol] 1.3 mg/dL Normal 0.2-1.3 [facility] Comment on above: Order Comment: Speci men Type: BLOOD SPECIMEN Ordering Facility: [facility] Address: [address] [place] [address] Performed By: #### 2 4323-8, 3084-1, 34658-1 #### [facility] CLIA [id number] [address] [facility] Calcium [Mass/Vol] 7.7 mg/dL Low 8.5-10.2 [facility] Comment on above: Order Comment: Speci men Type: BLOOD SPECIMEN Ordering Facility: [facility] Address: [address] [address] Performed By: #### 2 4323-8, 3084-1, 79571-4 #### [facility] CLIA [id number] [address] [place] Chloride [Moles/Vol] 104 mmol/L Normal 97-105 [facility] Comment on above: Order Comment: Speci men Type: BLOOD SPECIMEN Ordering Facility: [facility] Address: [address] [place] [address] Performed By: #### 2 4323-8, 4-1, 69674-1 #### [facility] CLIA [id number] [address] [place] CO2 [Moles/Vol] 23 mmol/L Normal 22-30 [facility] Comment on above: Order Comment: Speci men Type: BLOOD SPECIMEN Ordering Facility: [facility] Address: [address] [place] [address] Performed By: #### 2 4323-8, 3083-1, 37864-6 #### [facility] CLIA [id number] [address] [place] Creatinine [Mass/Vol] 0.54 mg/dL Low 0.58-0.96 [facility] Comment on above: Order Comment: Speci men Type: BLOOD SPECIMEN Ordering Facility: [facility] Address: [address] [place] [address] Performed By: #### 2 4323-8, 3084-1, 88983-1 #### [facility] CLIA [id number] [address] ESTIMATED GLOMERULAR FILTRATION RATE 135 mL/min/1.73m??? Normal >=60 [facility] Comment on above: Order Comment: Speci men Type: BLOOD SPECIMEN Ordering Facility: [facility] Address: [address] [place] [address] Result Comment: Majo mated Glomerular Filtration Rate [...] GFR. Performed By: #### 2 4323-8, 3084-1, 86079-5 #### [facility] CLIA [id number] 1 [place] [address] [place] Glucose [Mass/Vol] 82 mg/dL Normal 74-99 [facility] Comment on above: Order Comment: Flor martell Type: BLOOD SPECIMEN Ordering Facility: [facility] Address: [address] [place] [address] Result Comment: The [place] Diabetes Association (ADA) provides guidance for cutoff [...] Standards of Medical Care in Diabetes 2016, [place] [employer]. Diabetes Care. 2016.39(Suppl 1). Performed By: #### 2 4323-8, 3084-1, 97836-8 #### [facility] CLIA [id number] 1 [place] [address] [place] Potassium [Moles/Vol] 4.0 mmol/L Normal 3.7-5.1 [facility] Comment on above: Order Comment: Flor martell Type: BLOOD SPECIMEN Ordering Facility: [facility] Address: [address] [place], [place] [address] Performed By: #### 2 4323-8, 3084-1, 54004-5 #### [facility] CLIA [id number] [address] [place] Protein [Mass/Vol] 5.2 g/dL Low 6.3-8.0 [facility] Comment on above: Order Comment: Speci men Type: BLOOD SPECIMEN Ordering Facility: [facility] Address: [address] [place] [address] Performed By: #### 2 4323-8, 3084-1, 33988-7 #### [facility] CLIA [id number] [address] [place] Sodium [Moles/Vol] 137 mmol/L Normal 136-144 [facility] Comment on above: Order Comment: Speci men Type: BLOOD SPECIMEN Ordering Facility: [facility] Address: [address] [place] [address] Performed By: #### 2 4323-8, 3084-1, 95965-3 #### [facility] CLIA [id number] [address] [place] [address] [facility] Urea nitrogen [Mass/Vol] 9 mg/dL Normal 7-21 [facility] Comment on above: Order Comment: Speci men Type: BLOOD SPECIMEN Ordering Facility: [facility] Address: [address] [place] [address] Performed By: #### 2 4323-8, 3084-1, 72928-6 #### [facility] CLIA [id number] [address] OF [facility] Albumin [Mass/Vol] 2.6 g/dL Low 3.9-4.9 [facility] Comment on above: Order Comment: Speci men Type: BLOOD SPECIMEN Ordering Facility: [facility] Address: [address] [place] [address] Performed By: #### 5 8410-2 #### [facility] CLIA [id number] [address] [place] ALP [Catalytic activity/Vol] 72 U/L Normal 34-123 [facility] Comment on above: Order Comment: Speci men Type: BLOOD SPECIMEN Ordering Facility: [facility] Address: [address] [address] Performed By: #### 5 8410-2 #### [facility] CLIA [id number] [address] [place] With P-5'-P [Catalytic activity/Vol] 204 U/L High 7-38 [facility] Comment on above: Order Comment: Speci men Type: BLOOD SPECIMEN Ordering Facility: [facility] Address: [address] [address] Performed By: #### 5 8410-2 #### [facility] CLIA [id number] [address] [place] Anion gap [Moles/Vol] 10 mmol/L Normal 9-18 [facility] Comment on above: Order Comment: Speci men Type: BLOOD SPECIMEN Ordering Facility: [facility] Address: [address] [place] [address] Performed By: #### 5 8410-2 #### [facility] CLIA [id number] [address] [place] With P-5'-P [Catalytic activity/Vol] 263 U/L High 13-35 [facility] Comment on above: Order Comment: Speci men Type: BLOOD SPECIMEN Ordering Facility: [facility] Address: [address] [place] [address] Performed By: #### 5 8410-2 #### [facility] CLIA [id number] [address] [place] Bilirubin [Mass/Vol] 0.7 mg/dL Normal 0.2-1.3 [facility] Comment on above: Order Comment: Speci men Type: BLOOD SPECIMEN Ordering Facility: [facility] Address: [address] [place] [address] Performed By: #### 5 8410-2 #### [facility] CLIA [id number] [address] [place] Calcium [Mass/Vol] 7.0 mg/dL Low 8.5-10.2 [facility] Comment on above: Order Comment: Speci men Type: BLOOD SPECIMEN Ordering Facility: [facility] Address: [address] [place] [address] Performed By: #### 5 8410-2 #### [facility] CLIA [id number] [address] [facility] Chloride [Moles/Vol] 103 mmol/L Normal 97-105 [facility] Comment on above: Order Comment: Speci men Type: BLOOD SPECIMEN Ordering Facility: [facility] Address: [address] [place] [address] Performed By: #### 5 8410-2 #### [facility] CLIA [id number] [address] [place] CO2 [Moles/Vol] 24 mmol/L Normal 22-30 [facility] Comment on above: Order Comment: Speci men Type: BLOOD SPECIMEN Ordering Facility: [facility] Address: [address] [place] [address] Performed By: #### 5 8410-2 #### [facility] CLIA [id number] [address] [place] Creatinine [Mass/Vol] 0.56 mg/dL Low 0.58-0.96 [facility] Comment on above: Order Comment: Speci men Type: BLOOD SPECIMEN Ordering Facility: [facility] Address: [address] [place] [address] Performed By: #### 5 8410-2 #### [facility] CLIA [id number] [address] ESTIMATED GLOMERULAR FILTRATION RATE 133 mL/min/1.73m??? Normal >=60 [facility] Comment on above: Order Comment: Speci men Type: BLOOD SPECIMEN Ordering Facility: [facility] Address: [address] [place] [address] Result Comment: Majo mated Glomerular Filtration Rate [...] GFR. Performed By: #### 5 8410-2 #### [facility] CLIA [id number] 1 [place] [address] [place] Glucose [Mass/Vol] 100 mg/dL High 74-99 [facility] Comment on above: Order Comment: Flor martell Type: BLOOD SPECIMEN Ordering Facility: [facility] Address: [address] [address] Result Comment: The [place] Diabetes Association (ADA) provides guidance for cutoff [...] Standards of Medical Care in Diabetes 2016, [place] [employer]. Diabetes Care. 2016.39(Suppl 1). Performed By: #### 5 8410-2 #### [facility] CLIA [id number] 1 [place] [address] [place] Potassium [Moles/Vol] 3.8 mmol/L Normal 3.7-5.1 [facility] Comment on above: Order Comment: Flor amrtell Type: BLOOD SPECIMEN Ordering Facility: [facility] Address: [address] [address] Performed By: #### 5 8410-2 #### [facility] CLIA [id number] 1 [place] [address] [place] Protein [Mass/Vol] 4.9 g/dL Low 6.3-8.0 [facility] Comment on above: Order Comment: Flor martell Type: BLOOD SPECIMEN Ordering Facility: [facility] Address: [address] [address] Performed By: #### 5 8410-2 #### [facility] CLIA [id number] [address] STATES [facility] Sodium [Moles/Vol] 137 mmol/L Normal 136-144 [facility] Comment on above: Order Comment: Speci men Type: BLOOD SPECIMEN Ordering Facility: [facility] Address: [address] [place] [address] Performed By: #### 5 8410-2 #### [facility] CLIA [id number] [address] [place] Urea nitrogen [Mass/Vol] 9 mg/dL Normal 7-21 [facility] Comment on above: Order Comment: Speci men Type: BLOOD SPECIMEN Ordering Facility: [facility] Address: [address] [place] [address] Performed By: #### 5 8410-2 #### [facility] CLIA [id number] [address] OF [facility] Albumin [Mass/Vol] 3.0 g/dL Low 3.9-4.9 [facility] Comment on above: Order Comment: Speci men Type: BLOOD SPECIMEN Ordering Facility: [facility] Address: [address] [place] [address] Performed By: #### 5 8410-2 #### [facility] CLIA [id number] [address] ALP [Catalytic activity/Vol] 73 U/L Normal 34-123 [facility] Comment on above: Order Comment: Speci men Type: BLOOD SPECIMEN Ordering Facility: [facility] Address: [address] [place] [address] Performed By: #### 5 8410-2 #### [facility] CLIA [id number] [address] [place] With P-5'-P [Catalytic activity/Vol] 125 U/L High 7-38 [facility] Comment on above: Order Comment: Speci men Type: BLOOD SPECIMEN Ordering Facility: [facility] Address: [address] [address] Performed By: #### 5 8410-2 #### [facility] CLIA [id number] [address] [facility] Anion gap [Moles/Vol] 10 mmol/L Normal 9-18 [facility] Comment on above: Order Comment: Speci men Type: BLOOD SPECIMEN Ordering Facility: [facility] Address: [address] [place] [address] Performed By: #### 5 8410-2 #### [facility] CLIA [id number] [address] [place] With P-5'-P [Catalytic activity/Vol] 71 U/L High 13-35 [facility] Comment on above: Order Comment: Speci men Type: BLOOD SPECIMEN Ordering Facility: [facility] Address: [address] [place] [address] Performed By: #### 5 8410-2 #### [facility] CLIA [id number] [address] OF [facility] Bilirubin [Mass/Vol] 0.4 mg/dL Normal 0.2-1.3 [facility] Comment on above: Order Comment: Speci men Type: BLOOD SPECIMEN Ordering Facility: [facility] Address: [address] [place] [address] Performed By: #### 5 8410-2 #### [facility] CLIA [id number] [address] OF [facility] Calcium [Mass/Vol] 7.1 mg/dL Low 8.5-10.2 [facility] Comment on above: Order Comment: Speci men Type: BLOOD SPECIMEN Ordering Facility: [facility] Address: [address] [place] [address] Performed By: #### 5 8410-2 #### [facility] CLIA [id number] [address] [place] Chloride [Moles/Vol] 103 mmol/L Normal 97-105 [facility] Comment on above: Order Comment: Speci men Type: BLOOD SPECIMEN Ordering Facility: [facility] Address: [address] [address] Performed By: #### 5 8410-2 #### [facility] CLIA [id number] [address] [facility] CO2 [Moles/Vol] 24 mmol/L Normal 22-30 [facility] Comment on above: Order Comment: Speci men Type: BLOOD SPECIMEN Ordering Facility: [facility] Address: [address] [address] Performed By: #### 5 8410-2 #### [facility] CLIA [id number] [address] [place] Creatinine [Mass/Vol] 0.58 mg/dL Normal 0.58-0.96 [facility] Comment on above: Order Comment: Speci men Type: BLOOD SPECIMEN Ordering Facility: [facility] Address: [address] [place] [address] Performed By: #### 5 8410-2 #### [facility] CLIA [id number] [address] ESTIMATED GLOMERULAR FILTRATION RATE 132 mL/min/1.73m??? Normal >=60 [facility] Comment on above: Order Comment: Speci men Type: BLOOD SPECIMEN Ordering Facility: [facility] Address: [address] [place] [address] Result Comment: Majo mated Glomerular Filtration Rate [...] GFR. Performed By: #### 5 8410-2 #### [facility] CLIA [id number] [address] [place] Glucose [Mass/Vol] 106 mg/dL High 74-99 [facility] Comment on above: Order Comment: Speci men Type: BLOOD SPECIMEN Ordering Facility: [facility] Address: [address] [place] [address] Result Comment: The [place] Diabetes Association (ADA) provides guidance for cutoff [...] Standards of Medical Care in Diabetes 2016, [place] [employer]. Diabetes Care. 2016.39(Suppl 1). Performed By: #### 5 8410-2 #### [facility] CLIA [id number] 1 [place] [address] [place] Potassium [Moles/Vol] 4.0 mmol/L Normal 3.7-5.1 [facility] Comment on above: Order Comment: Flor jayshree Type: BLOOD SPECIMEN Ordering Facility: [facility] Address: [address] [place] [address] Performed By: #### 5 8410-2 #### [facility] CLIA [id number] 1 [place] [address] [place] Protein [Mass/Vol] 5.3 g/dL Low 6.3-8.0 [facility] Comment on above: Order Comment: Miriami men Type: BLOOD SPECIMEN Ordering Facility: [facility] Address: [address] [address] Performed By: #### 5 8410-2 #### [facility] CLIA [id number] 1 [place] [address] [place] Sodium [Moles/Vol] 137 mmol/L Normal 136-144 [facility] Comment on above: Order Comment: Miriami men Type: BLOOD SPECIMEN Ordering Facility: [facility] Address: [address] [address] Performed By: #### 5 8410-2 #### [facility] CLIA [id number] [address] [facility] Urea nitrogen [Mass/Vol] 8 mg/dL Normal 7- [facility] Comment on above: Order Comment: Speci men Type: BLOOD SPECIMEN Ordering Facility: [facility] Address: [address] [place], [place] [address] Performed By: #### 5 8410-2 #### [facility] CLIA [id number] [address] [facility] ANES POSTPROC EVALon 023 ANES POSTPROC EVAL HNO ID: [id number] Author: Pedro Pan APRN.CRNA Service: Anesthesiology Author Type: Nurse Shuttle Inspector Type: Anesthesia Postprocedure Evaluation Filed: 02/07/2023 5:30 AM Note Text: POST ANESTHESIA EVALUATION NOTE : 2000 Procedure Summary Date: 02/07/23 Room / Location: [address] Anesthesia Start: 52 Anesthesia Stop: 243 Procedure: SECTION Diagnosis: (Maternal Medical Condition) Surgeons: Areli Wing MD Responsible Provider: Mirta Lagne MD Anesthesia Type: general ASA Status: 3 - Emergent Anesthesia Type: general Airway Type: ETT Last Vitals Vitals Value Taken Time BP 122/82 02/07/23 0516 Temp 02/07/23 0529 Pulse 79 02/07/23 0524 Resp 12 02/07/23 0454 SpO2 98 % 02/07/23 0524 Vitals shown include unvalidated device data. John, Girl Nestor Curtis [[id number]] Baby Delivery: 02/07/2023 0111 Post Anesthesia Patient Status Neurological Status: aware and responsive. Pulmonary Status: breathing comfortably on room air Airway Control: returned to baseline unsupported. Cardiovascular Status: stable. Pain Management: clinically adequate Postoperative Hydration: acceptable. Post Operative Nausea/Vomiting Status: no significant post operative nausea or vomiting Recommendation: continue current plan of care. 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 Patient / Responsible Alliance Party agrees to proceed: yes Patient / [...] Rfl: , Unknown Inpatient medications reviewed in EPIC I have interviewed and examined the patient. I have reviewed the medical record and/or the pre-anesthesia evaluation, pertinent labs, and test results. This contains updated information obtained within 48 hours of Surgery/Procedure. SIGNATURE: Pedro Pan APRN.TREE CHIPPER PATIENT NAME: Nestor Lopez DATE: February 07, 2023 TIME: 12:20 AM : 2000 Normal [facility] ANTIBODY ID PATIENTon 2022 ANTIBODY IDENTIFIED Passively acq Anti-D Normal [facility] Comment on above: Order Comment: Speci men Type: BLOOD SPECIMEN Ordering Facility: [facility] Address: [address] [place] [address] Performed By: #### 5 8410-2 #### [facility] CLIA [id number] 1 [place] [address] [place] Ammonia Plas-sCncon 07-04-20 23 Ammonia (P) [Moles/Vol] 15 umol/L Normal 11-51 [facility] Comment on above: Order Comment: Speci men Type: BLOOD SPECIMEN Ordering Facility: [facility] Address: [address] [place] [address] Performed By: #### 2 4323-8, 3084-1, 66636-5 #### [facility] CLIA [id number] [address] [place] [address] [place] Basic metabolic 2000 panelon 02-07-2023 Anion gap [Moles/Vol] 11 mmol/L Normal 9-18 [facility] Comment on above: Order Comment: Speci men Type: BLOOD SPECIMEN Ordering Facility: [facility] Address: [address] [place] [address] Performed By: #### 2 4323-8, 3084-1, 19771-8 #### [facility] CLIA [id number] [address] [place] [address] [place] Calcium [Mass/Vol] 7.1 mg/dL Low 8.5-10.2 [facility] Comment on above: Order Comment: Speci men Type: BLOOD SPECIMEN Ordering Facility: [facility] Address: [address] [place] [address] Performed By: #### 2 4323-8, 3084-1, 76247-5 #### [facility] CLIA [id number] [address] [place] Chloride [Moles/Vol] 102 mmol/L Normal 97-105 [facility] Comment on above: Order Comment: Speci men Type: BLOOD SPECIMEN Ordering Facility: [facility] Address: [address] [place] [address] Performed By: #### 2 4323-8, 3084-1, 78751-4 #### [facility] CLIA [id number] [address] [place] CO2 [Moles/Vol] 21 mmol/L Low 22-30 [facility] Comment on above: Order Comment: Speci men Type: BLOOD SPECIMEN Ordering Facility: [facility] Address: [address] [place] [address] Performed By: #### 2 4323-8, 3084-1, 22675-4 #### [facility] CLIA [id number] [address] [facility] Creatinine [Mass/Vol] 0.49 mg/dL Low 0.58-0.96 [facility] Comment on above: Order Comment: Speci men Type: BLOOD SPECIMEN Ordering Facility: [facility] Address: [place] [place] [address] Performed By: #### 2 4323-8, 3084-1, 79228-8 #### [facility] CLIA [id number] [address] ESTIMATED GLOMERULAR FILTRATION RATE 138 mL/min/1.73m??? Normal >=60 [facility] Comment on above: Order Comment: Flor men Type: BLOOD SPECIMEN Ordering Facility: [facility] Address: [place] [place] [address] Result Comment: Majo mated Glomerular Filtration Rate [...] GFR. Performed By: #### 2 4323-8, 3084-1, 61301-0 #### [facility] CLIA [id number] [address] [place] Glucose [Mass/Vol] 111 mg/dL High 74-99 [facility] Comment on above: Order Comment: Speci men Type: BLOOD SPECIMEN Ordering Facility: [facility] Address: [address] [place] [address] Result Comment: The [place] Diabetes Association (ADA) provides guidance for cutoff [...] Standards of Medical Care in Diabetes 2016, [place] [employer]. Diabetes Care. 2016.39(Suppl 1). Performed By: #### 2 4323-8, 3084-1, 48523-8 #### [facility] CLIA [id number] 1 [place] [address] [place] Potassium [Moles/Vol] 3.9 mmol/L Normal 3.7-5.1 [facility] Comment on above: Order Comment: Flor martell Type: BLOOD SPECIMEN Ordering Facility: [facility] Address: [address] [place] [address] Performed By: #### 2 4323-8, 4-, 30224-9 #### [facility] CLIA [id number] [address] OF [facility] Sodium [Moles/Vol] 134 mmol/L Low 136-144 [facility] Comment on above: Order Comment: Flor martell Type: BLOOD SPECIMEN Ordering Facility: [facility] Address: [address] [place] [address] Performed By: #### 2 4323-8, 3084-1, 58290-3 #### [facility] CLIA [id number] [address] [place] Urea nitrogen [Mass/Vol] 7 mg/dL Normal 7-21 [facility] Comment on above: Order Comment: Flor martell Type: BLOOD SPECIMEN Ordering Facility: [facility] Address: [address] [place] [address] Performed By: #### 2 4323-8, 3084-1, 21223-2 #### [facility] CLIA [id number] [address] [place] Bilirub Conj SerPl-mCncon Bilirubin.conjugated [Mass/Vol] 0.5 mg/dL High <0.2 [facility] Comment on above: Order Comment: Speci men Type: BLOOD SPECIMEN Ordering Facility: [facility] Address: [address] [place] [address] Performed By: #### 2 4323-8, 3084-1, 81655-9 #### [facility] CLIA [id number] [address] CBC panel Auto (Bld)on 02-07 Erythrocyte distribution width (RBC) [Ratio] 14.4 % Normal 11.5-15.0 [facility] Comment on above: Order Comment: Speci men Type: BLOOD SPECIMEN Ordering Facility: [facility] Address: [address] [place] [address] Performed By: #### 5 8410-2 #### [facility] CLIA [id number] [address] [place] [address] [facility] Hematocrit (Bld) [Volume fraction] 25.6 % Low 36.0-46.0 [facility] Comment on above: Order Comment: Speci men Type: BLOOD SPECIMEN Ordering Facility: [facility] Address: [address] [place] [address] Performed By: #### 5 8410-2 #### [facility] CLIA [id number] [address] [facility] Hemoglobin (Bld) [Mass/Vol] 8.8 g/dL Low 11.5-15.5 [facility] Comment on above: Order Comment: Speci men Type: BLOOD SPECIMEN Ordering Facility: [facility] Address: [address] [place] [address] Performed By: #### 5 8410-2 #### [facility] CLIA [id number] [address] MCH (RBC) [Entitic mass] 27.5 pg Normal 26.0-34.0 [facility] Comment on above: Order Comment: Speci men Type: BLOOD SPECIMEN Ordering Facility: [facility] Address: [address] [place] [address] Performed By: #### 5 8410-2 #### [facility] CLIA [id number] [address] MCHC (RBC) [Mass/Vol] 34.4 g/dL Normal 30.5-36.0 [facility] Comment on above: Order Comment: Speci men Type: BLOOD SPECIMEN Ordering Facility: [facility] Address: [address] [place] [place] [address] Performed By: #### 5 8410-2 #### [facility] CLIA [id number] [address] MCV (RBC) [Entitic vol] 80.0 fL Normal 80.0-100.0 [facility] Comment on above: Order Comment: Speci men Type: BLOOD SPECIMEN Ordering Facility: [facility] Address: [address] [place] [place] [address] Performed By: #### 5 8410-2 #### [facility] CLIA [id number] [address] Nucleated RBC (Bld) [#/Vol] 10*3/uL Normal <0.01 [facility] Comment on above: Order Comment: Speci men Type: BLOOD SPECIMEN Ordering Facility: [facility] Address: [address] [place] [address] Performed By: #### 5 8410-2 #### [facility] CLIA [id number] [address] Platelet mean volume (Bld) [Entitic vol] 11.3 fL Normal 9.0-12.7 [facility] Comment on above: Order Comment: Speci men Type: BLOOD SPECIMEN Ordering Facility: [facility] Address: [address] [place] [place] [address] Performed By: #### 5 8410-2 #### [facility] CLIA [id number] [address] Platelets (Bld) [#/Vol] 120 10*3/uL Low 150-400 [facility] Comment on above: Order Comment: Speci men Type: BLOOD SPECIMEN Ordering Facility: [facility] Address: [address] [place] [address] Result Comment: No c lot detected. Performed By: #### 5 8410-2 #### [facility] CLIA [id number] [address] RBC (Bld) [#/Vol] 3.20 10*6/uL Low 3.90-5.20 [facility] Comment on above: Order Comment: Speci men Type: BLOOD SPECIMEN Ordering Facility: [facility] Address: [address] [place] [address] Performed By: #### 5 8410-2 #### [facility] CLIA [id number] [address] [facility] WBC (Bld) [#/Vol] 17.18 10*3/uL High 3.70-11.00 [facility] Comment on above: Order Comment: Speci men Type: BLOOD SPECIMEN Ordering Facility: [facility] Address: [address] [place] [address] Performed By: #### 5 8410-2 #### [facility] CLIA [id number] [address] [facility] Erythrocyte distribution width (RBC) [Ratio] 14.4 % Normal 11.5-15.0 [facility] Comment on above: Order Comment: Speci men Type: BLOOD SPECIMEN Ordering Facility: [facility] Address: [address] [place] [address] Performed By: #### 5 8410-2 #### [facility] CLIA [id number] [address] Hematocrit (Bld) [Volume fraction] 24.9 % Low 36.0-46.0 [facility] Comment on above: Order Comment: Speci men Type: BLOOD SPECIMEN Ordering Facility: [facility] Address: [address] [place] [address] Performed By: #### 5 8410-2 #### [facility] CLIA [id number] [address] Hemoglobin (Bld) [Mass/Vol] 8.5 g/dL Low 11.5-15.5 [facility] Comment on above: Order Comment: Speci men Type: BLOOD SPECIMEN Ordering Facility: [facility] Address: [address] [place] [address] Performed By: #### 5 8410-2 #### [facility] CLIA [id number] [address] MCH (RBC) [Entitic mass] 27.7 pg Normal 26.0-34.0 [facility] Comment on above: Order Comment: Speci men Type: BLOOD SPECIMEN Ordering Facility: [facility] Address: [address] [place] [address] Performed By: #### 5 8410-2 #### [facility] CLIA [id number] [address] MCHC (RBC) [Mass/Vol] 34.1 g/dL Normal 30.5-36.0 [facility] Comment on above: Order Comment: Speci men Type: BLOOD SPECIMEN Ordering Facility: [facility] Address: [address] [place] [address] Performed By: #### 5 8410-2 #### [facility] CLIA [id number] [address] MCV (RBC) [Entitic vol] 81.1 fL Normal 80.0-100.0 [facility] Comment on above: Order Comment: Speci men Type: BLOOD SPECIMEN Ordering Facility: [facility] Address: [address] [place] [address] Performed By: #### 5 8410-2 #### [facility] CLIA [id number] [address] Nucleated RBC (Bld) [#/Vol] 10*3/uL Normal <0.01 [facility] Comment on above: Order Comment: Speci men Type: BLOOD SPECIMEN Ordering Facility: [facility] Address: [address] [place] [address] Performed By: #### 5 8410-2 #### [facility] CLIA [id number] [address] [place] Platelet mean volume (Bld) [Entitic vol] 11.9 fL Normal 9.0-12.7 [facility] Comment on above: Order Comment: Speci men Type: BLOOD SPECIMEN Ordering Facility: [facility] Address: [address] [place] [address] Performed By: #### 5 8410-2 #### [facility] CLIA [id number] [address] [place] Platelets (Bld) [#/Vol] 74 10*3/uL Low 150-400 [facility] Comment on above: Order Comment: Speci men Type: BLOOD SPECIMEN Ordering Facility: [facility] Address: [address] [place] [address] Result Comment: Plat elet count confirmed by manual review of peripheral blood smear. No clot detected. Performed By: #### 5 8410-2 #### [facility] CLIA [id number] [address] [place] RBC (Bld) [#/Vol] 3.07 10*6/uL Low 3.90-5.20 [facility] Comment on above: Order Comment: Speci men Type: BLOOD SPECIMEN Ordering Facility: [facility] Address: [address] [place] [address] Performed By: #### 5 8410-2 #### [facility] CLIA [id number] [address] [place] WBC (Bld) [#/Vol] 14.79 10*3/uL High 3.70-11.00 [facility] Comment on above: Order Comment: Speci men Type: BLOOD SPECIMEN Ordering Facility: [facility] Address: [address] [place] [address] Performed By: #### 5 8410-2 #### [facility] CLIA [id number] [address] Erythrocyte distribution width (RBC) [Ratio] 14.4 % Normal 11.5-15.0 [facility] Comment on above: Order Comment: Speci men Type: BLOOD SPECIMEN Ordering Facility: [facility] Address: [address] [place] [address] Performed By: #### 2 4323-8, 3083-1, 56496-8 #### [facility] CLIA [id number] [address] [facility] Hematocrit (Bld) [Volume fraction] 26.3 % Low 36.0-46.0 [facility] Comment on above: Order Comment: Speci men Type: BLOOD SPECIMEN Ordering Facility: [facility] Address: [address] [place] [address] Performed By: #### 2 4323-8, 3083-, 91183-4 #### [facility] CLIA [id number] [address] [place] [address] [facility] Hemoglobin (Bld) [Mass/Vol] 8.7 g/dL Low 11.5-15.5 [facility] Comment on above: Order Comment: Speci men Type: BLOOD SPECIMEN Ordering Facility: [facility] Address: [address] [place] [address] Performed By: #### 2 4323-8, 3083-1, 83629-0 #### [facility] CLIA [id number] [address] MCH (RBC) [Entitic mass] 27.2 pg Normal 26.0-34.0 [facility] Comment on above: Order Comment: Speci men Type: BLOOD SPECIMEN Ordering Facility: [facility] Address: [address] [place] [address] Performed By: #### 2 4323-8, 3084-1, 68173-3 #### [facility] CLIA [id number] [address] MCHC (RBC) [Mass/Vol] 33.1 g/dL Normal 30.5-36.0 [facility] Comment on above: Order Comment: Speci men Type: BLOOD SPECIMEN Ordering Facility: [facility] Address: [address] [place] [address] Performed By: #### 2 4323-8, 3084-1, 09893-2 #### [facility] CLIA [id number] [address] MCV (RBC) [Entitic vol] 82.2 fL Normal 80.0-100.0 [facility] Comment on above: Order Comment: Speci men Type: BLOOD SPECIMEN Ordering Facility: [facility] Address: [address] [place] [address] Performed By: #### 2 4323-8, 4-1, 44088-4 #### [facility] CLIA [id number] [address] [place] [address] Nucleated RBC (Bld) [#/Vol] 10*3/uL Normal <0.01 [facility] Comment on above: Order Comment: Speci men Type: BLOOD SPECIMEN Ordering Facility: [facility] Address: [address] [place] [address] Performed By: #### 2 4323-8, 3084-1, 65524-4 #### [facility] CLIA [id number] [address] [place] [address] Platelet mean volume (Bld) [Entitic vol] 11.5 fL Normal 9.0-12.7 [facility] Comment on above: Order Comment: Speci men Type: BLOOD SPECIMEN Ordering Facility: [facility] Address: [address] [place] [address] Performed By: #### 2 4323-8, 3084-1, 04158-4 #### [facility] CLIA [id number] [address] Platelets (Bld) [#/Vol] 59 10*3/uL Low 150-400 [facility] Comment on above: Order Comment: Speci men Type: BLOOD SPECIMEN Ordering Facility: [facility] Address: [address] [address] Result Comment: No c lot detected. Performed By: #### 2 4323-8, 3084-1, 87192-7 #### [facility] CLIA [id number] [address] OF [facility] RBC (Bld) [#/Vol] 3.20 10*6/uL Low 3.90-5.20 [facility] Comment on above: Order Comment: Speci men Type: BLOOD SPECIMEN Ordering Facility: [facility] Address: [address] [address] Performed By: #### 2 4323-8, 3084-1, 22376-5 #### [facility] CLIA [id number] [address] [place] [address] [facility] WBC (Bld) [#/Vol] 12.64 10*3/uL High 3.70-11.00 [facility] Comment on above: Order Comment: Speci men Type: BLOOD SPECIMEN Ordering Facility: [facility] Address: [address] [address] Performed By: #### 2 4323-8, 308-1, 92545-6 #### [facility] CLIA [id number] [address] [place] [address] [facility] Erythrocyte distribution width (RBC) [Ratio] 14.4 % Normal 11.5-15.0 [facility] Comment on above: Order Comment: Speci men Type: BLOOD SPECIMEN Ordering Facility: [facility] Address: [address] [address] Performed By: #### 5 8410-2 #### [facility] CLIA [id number] [address] Hematocrit (Bld) [Volume fraction] 30.5 % Low 36.0-46.0 [facility] Comment on above: Order Comment: Speci men Type: BLOOD SPECIMEN Ordering Facility: [facility] Address: [address] [address] Performed By: #### 5 8410-2 #### [facility] CLIA [id number] [address] Hemoglobin (Bld) [Mass/Vol] 10.4 g/dL Low 11.5-15.5 [facility] Comment on above: Order Comment: Speci men Type: BLOOD SPECIMEN Ordering Facility: [facility] Address: [address] [address] Performed By: #### 5 8410-2 #### [facility] CLIA [id number] [address] MCH (RBC) [Entitic mass] 27.4 pg Normal 26.0-34.0 [facility] Comment on above: Order Comment: Speci men Type: BLOOD SPECIMEN Ordering Facility: [facility] Address: [address] [address] Performed By: #### 5 8410-2 #### [facility] CLIA [id number] [address] MCHC (RBC) [Mass/Vol] 34.1 g/dL Normal 30.5-36.0 [facility] Comment on above: Order Comment: Speci men Type: BLOOD SPECIMEN Ordering Facility: [facility] Address: [address] [place] [address] Performed By: #### 5 8410-2 #### [facility] CLIA [id number] [address] MCV (RBC) [Entitic vol] 80.5 fL Normal 80.0-100.0 [facility] Comment on above: Order Comment: Speci men Type: BLOOD SPECIMEN Ordering Facility: [facility] Address: [address] [place] [address] Performed By: #### 5 8410-2 #### [facility] CLIA [id number] [address] Nucleated RBC (Bld) [#/Vol] 10*3/uL Normal <0.01 [facility] Comment on above: Order Comment: Speci men Type: BLOOD SPECIMEN Ordering Facility: [facility] Address: [address] [place] [address] Performed By: #### 5 8410-2 #### [facility] CLIA [id number] [address] [place] Platelet mean volume (Bld) [Entitic vol] 10.9 fL Normal 9.0-12.7 [facility] Comment on above: Order Comment: Speci men Type: BLOOD SPECIMEN Ordering Facility: [facility] Address: [address] [place] [address] Performed By: #### 5 8410-2 #### [facility] CLIA [id number] [address] [place] Platelets (Bld) [#/Vol] 40 10*3/uL Low 150-400 [facility] Comment on above: Order Comment: Speci men Type: BLOOD SPECIMEN Ordering Facility: [facility] Address: [address] [place] [address] Result Comment: No c lot detected. Performed By: #### 5 8410-2 #### [facility] CLIA [id number] [address] [place] RBC (Bld) [#/Vol] 3.79 10*6/uL Low 3.90-5.20 [facility] Comment on above: Order Comment: Speci men Type: BLOOD SPECIMEN Ordering Facility: [facility] Address: [address] [place] [address] Performed By: #### 5 8410-2 #### [facility] CLIA [id number] [address] [place] WBC (Bld) [#/Vol] 13.05 10*3/uL High 3.70-11.00 [facility] Comment on above: Order Comment: Speci men Type: BLOOD SPECIMEN Ordering Facility: [facility] Address: [address] [place] [address] Performed By: #### 5 8410-2 #### [facility] CLIA [id number] [address] CONSULTon 02-07-2023 CONSULT HNO ID: [id number] Author: Kimberly Rueda MD Service: Obstetrics Author [...] We recommend follow up with primary care provider/licensed loan officer in 4-6 weeks to discuss ways to [...] method. Patient presented as a transfer from [facility] where she was found to have elevated liver enzymes and low platelets in the setting of a week of worsening abdominal pain. She received 2U of platelets and was delivered via low transverse section this AM under general anesthesia. MFM was consulted for input on pain management, [...] Multiple0 Live Births1 Name of Baby 1: JOHNGIRL NESTOR Curtis Date: 02/07/23 GA: 29w1d Delivery: , Low Transverse Apgar1: 1 Apgar5: 2 Living: Living Active Non-Hospital Problems Diagnosis Date Noted Prematurity 02/07/2023 Overview Note: NICU consulted On Magnesium S/p Betamethasone x1 CEFM prior to delivery Elevated glucose 01/30/2023 Overview Note: 02/03/23- 3 hour normal. Shea Dykes APRN.CNMatty 01/30/23- Elevated GCT, 3 hour wnl ALLERGIES [...] by mo (more content not included)... Normal [facility] CONSULT HNO ID: [id number] Author: Jorge Elliott MD Service: Hospital Medicine Author Type: Resident Type: Consults Filed: 02/07/2023 9:16 AM Note Text: Attestation signed by Reji Del Rio MD at 02/07/2023 5:11 PM I saw and evaluated the patient. Discussed with the resident and agree with resident's findings and plan as documented in the resident's note. [facility] [place] PATIENT NAME: Nestor Lopez ADMITTED FOR: DATE: 02/06/2023 Subjective HPI Ms. Nestor Lopez is a 22 year old female with no significant PMH who was recently transferred from [facility] wherein she was found to have [...] not on any medications apart from pre robert vitamins. She currently denied any dizziness, diaphoresis, [...] LVEF LABORATORY: CBC: Recent Labs 02/07/23 0555 02/06/23 2322 WBC 12.64* 13.05* HB 8.7* 10.4* HCT 2 (more content not included)... Normal [facility] CONSULT HNO ID: [id number] Author: Valentine Webster APRN.CNP Service: Neonatology Author Type: Nurse Practitioner Type: Consults Filed: 02/07/2023 12:23 AM Note Text: NEONATOLOGY CONSULT SERVICE DATE: 02/07/2023 Admission Date: 02/06/2023 SERVICE TIME: 0 Date of : 2000 Age: [age] year old Sex: female Primary Care Physician: No primary care provider on file. Consulting Neonatology MICHELLE: Valentine Webster APRN.CNP Subjective Consultation for this evaluation was requested by Dr. Wing. Reason for consultation: 29 week mother who [...] delays: Yes Discussed need for evaluation by [employer] Sales Representative for ROP: Yes Discussed risk for hearing [...] Verbal consent obtained: Yes MISC. Name if Faculty Administrator, if known: Unknown, please contact patient's primary care physician Possible need for transfer to outside hospital: Yes Possible need for subspecialty evaluation: N/A Additional discussion: N/A Impression/Recommenda tions Assessment: This is a 29 weeks mother who is presenting with suspected HELLP syndrome with potential for imminent delivery. Plan: NICU to be present at delivery if decision made after labs resulted. Call NUTRITION SPECIALIST with questions. Dr. Fox notified of potential delivery - discussed consult with Dr. Wing before and after discussion with family. Physician aasp-qu-wddf total time, including discussion: 40 minutes, more than 50 % of time devoted to coordination of care and/or counseling. SIGNATURE: Valentine Webster APRN.CNP PATIENT NAME: Nestor Lopez DATE: February 07, 2023 TIME: 12:17 AM Normal [facility] Calcium.ionized [Moles/Vol]o n 02-07-2023 Calcium.ionized (BldV) [Mass/Vol] 1.01 mmol/L Low 1.08-1.30 [facility] Comment on above: Order Comment: Flor martell Type: BLOOD SPECIMEN Ordering Facility: [facility] Address: [address] [place] [address] Performed By: #### 2 4323-8, 3084-1, 35117-5 #### [facility] CLIA [id number] [address] [place] [address] Calcium.ionized adjusted to pH 7.4 (Bld) [Moles/Vol] 0.98 mmol/L Low 1.08-1.30 [facility] Comment on above: Order Comment: Flor martell Type: BLOOD SPECIMEN Ordering Facility: [facility] Address: [address] [place] [address] Performed By: #### 2 4323-8, 3084-1, 89470-7 #### [facility] CLIA [id number] [address] [place] [address] [facility] Comprehensive metabolic 2000 panelon 02-07-2023 Albumin [Mass/Vol] 3.1 g/dL Low 3.9-4.9 [facility] Comment on above: Order Comment: Flor martell Type: BLOOD SPECIMEN Ordering Facility: [facility] Address: [address] [place] [address] Performed By: #### 5 8410-2 #### [facility] CLIA [id number] [address] ALP [Catalytic activity/Vol] 74 U/L Normal 34-123 [facility] Comment on above: Order Comment: Speci men Type: BLOOD SPECIMEN Ordering Facility: [facility] Address: [address] [place] [address] Performed By: #### 5 8410-2 #### [facility] CLIA [id number] [address] [place] With P-5'-P [Catalytic activity/Vol] 131 U/L High 7-38 [facility] Comment on above: Order Comment: Speci men Type: BLOOD SPECIMEN Ordering Facility: [facility] Address: [address] [place] [address] Performed By: #### 5 8410-2 #### [facility] CLIA [id number] [address] [place] Anion gap [Moles/Vol] 13 mmol/L Normal 9-18 [facility] Comment on above: Order Comment: Speci men Type: BLOOD SPECIMEN Ordering Facility: [facility] Address: [address] [address] Performed By: #### 5 8410-2 #### [facility] CLIA [id number] [address] [place] With P-5'-P [Catalytic activity/Vol] 74 U/L High 13-35 [facility] Comment on above: Order Comment: Speci men Type: BLOOD SPECIMEN Ordering Facility: [facility] Address: [address] [address] Performed By: #### 5 8410-2 #### [facility] CLIA [id number] [address] [place] Bilirubin [Mass/Vol] 0.5 mg/dL Normal 0.2-1.3 [facility] Comment on above: Order Comment: Speci men Type: BLOOD SPECIMEN Ordering Facility: [facility] Address: [address] [place] [address] Performed By: #### 5 8410-2 #### [facility] CLIA [id number] [address] [place] Calcium [Mass/Vol] 7.2 mg/dL Low 8.5-10.2 [facility] Comment on above: Order Comment: Speci men Type: BLOOD SPECIMEN Ordering Facility: [facility] Address: [address] [place] [address] Performed By: #### 5 8410-2 #### [facility] CLIA [id number] 1 [place] [address] [place] Chloride [Moles/Vol] 103 mmol/L Normal 97-105 [facility] Comment on above: Order Comment: Speci men Type: BLOOD SPECIMEN Ordering Facility: [facility] Address: [address] [place] [address] Performed By: #### 5 8410-2 #### [facility] CLIA [id number] [address] [place] CO2 [Moles/Vol] 21 mmol/L Low 22-30 [facility] Comment on above: Order Comment: Speci men Type: BLOOD SPECIMEN Ordering Facility: [facility] Address: [address] [place] [address] Performed By: #### 5 8410-2 #### [facility] CLIA [id number] [address] [place] [address] [place] Creatinine [Mass/Vol] 0.55 mg/dL Low 0.58-0.96 [facility] Comment on above: Order Comment: Speci men Type: BLOOD SPECIMEN Ordering Facility: [facility] Address: [address] [place] [address] Performed By: #### 5 8410-2 #### [facility] CLIA [id number] [address] [place] ESTIMATED GLOMERULAR FILTRATION RATE 134 mL/min/1.73m??? Normal >=60 [facility] Comment on above: Order Comment: Speci men Type: BLOOD SPECIMEN Ordering Facility: [facility] Address: [address] [place] [address] Result Comment: Majo mated Glomerular Filtration Rate (eGFR) is calculated using the 2021 CKD-EPI creatinine equation. This equation utilizes serum creatinine, sex, and age as parameters. The creatinine assay has traceable calibration to isotope dilution-mass spectrometry. Refer to KDIGO guidelines for clinical interpretation. In patients with unstable renal function, e.g. those with acute kidney injury, the eGFR may not accurately reflect actual GFR. Performed By: #### 5 8410-2 #### [facility] CLIA [id number] 1 [place] [address] [place] Glucose [Mass/Vol] 102 mg/dL High 74-99 [facility] Comment on above: Order Comment: Flor martell Type: BLOOD SPECIMEN Ordering Facility: [facility] Address: [address] [address] Result Comment: The [place] Diabetes Association (ADA) provides guidance for cutoff [...] Standards of Medical Care in Diabetes 2016, [place] [employer]. Diabetes Care. 2016.39(Suppl 1). Performed By: #### 5 8410-2 #### [facility] CLIA [id number] 1 [place] [address] [place] Potassium [Moles/Vol] 4.2 mmol/L Normal 3.7-5.1 [facility] Comment on above: Order Comment: Flor martell Type: BLOOD SPECIMEN Ordering Facility: [facility] Address: [address] [phone] Performed By: #### 5 8410-2 #### [facility] CLIA [id number] 1 [place] [address] [place] Protein [Mass/Vol] 5.5 g/dL Low 6.3-8.0 [facility] Comment on above: Order Comment: Speci men Type: BLOOD SPECIMEN Ordering Facility: [facility] Address: [address] [address] Performed By: #### 5 8410-2 #### [facility] CLIA [id number] [address] Sodium [Moles/Vol] 137 mmol/L Normal 136-144 [facility] Comment on above: Order Comment: Speci men Type: BLOOD SPECIMEN Ordering Facility: [facility] Address: [address] [address] Performed By: #### 5 8410-2 #### [facility] CLIA [id number] [address] [facility] Urea nitrogen [Mass/Vol] 7 mg/dL Normal 7-21 [facility] Comment on above: Order Comment: Speci men Type: BLOOD SPECIMEN Ordering Facility: [facility] Address: [address] [place] [address] Performed By: #### 5 8410-2 #### [facility] CLIA [id number] [address] OF [facility] Albumin [Mass/Vol] 2.7 g/dL Low 3.9-4.9 [facility] Comment on above: Order Comment: Speci men Type: BLOOD SPECIMEN Ordering Facility: [facility] Address: [address] [place] [address] Performed By: #### 2 4323-8, 3084-1, 09826-9 #### [facility] CLIA [id number] [address] [place] ALP [Catalytic activity/Vol] 63 U/L Normal 34-123 [facility] Comment on above: Order Comment: Speci men Type: BLOOD SPECIMEN Ordering Facility: [facility] Address: [address] [place] [address] Performed By: #### 2 4323-8, 3084-1, 63936-1 #### [facility] CLIA [id number] [address] [place] With P-5'-P [Catalytic activity/Vol] 129 U/L High 7-38 [facility] Comment on above: Order Comment: Speci men Type: BLOOD SPECIMEN Ordering Facility: [facility] Address: [address] [place] [address] Performed By: #### 2 4323-8, 3084-1, 26663-6 #### [facility] CLIA [id number] [address] Anion gap [Moles/Vol] 13 mmol/L Normal 9-18 [facility] Comment on above: Order Comment: Speci men Type: BLOOD SPECIMEN Ordering Facility: [facility] Address: [address] [place] [address] Performed By: #### 2 4323-8, 3084-1, 87800-5 #### [facility] CLIA [id number] [address] [place] With P-5'-P [Catalytic activity/Vol] 81 U/L High 13-35 [facility] Comment on above: Order Comment: Speci men Type: BLOOD SPECIMEN Ordering Facility: [facility] Address: [address] [place] [address] Performed By: #### 2 4323-8, 3084-1, 20486-1 #### [facility] CLIA [id number] [address] Bilirubin [Mass/Vol] 0.7 mg/dL Normal 0.2-1.3 [facility] Comment on above: Order Comment: Speci men Type: BLOOD SPECIMEN Ordering Facility: [facility] Address: [address] [place] [address] Performed By: #### 2 4323-8, 3084-1, 88888-8 #### [facility] CLIA [id number] [address] [facility] Calcium [Mass/Vol] 6.9 mg/dL Low 8.5-10.2 [facility] Comment on above: Order Comment: Speci men Type: BLOOD SPECIMEN Ordering Facility: [facility] Address: [address] [address] Performed By: #### 2 4323-8, 3084-1, 52249-3 #### [facility] CLIA [id number] [address] [place] Chloride [Moles/Vol] 101 mmol/L Normal 97-105 [facility] Comment on above: Order Comment: Speci men Type: BLOOD SPECIMEN Ordering Facility: [facility] Address: [address] [address] Performed By: #### 2 4323-8, 3084-1, 92501-6 #### [facility] CLIA [id number] [address] [place] CO2 [Moles/Vol] 20 mmol/L Low 22-30 [facility] Comment on above: Order Comment: Speci men Type: BLOOD SPECIMEN Ordering Facility: [facility] Address: [address] [address] Performed By: #### 2 4323-8, 3084-1, 26064-3 #### [facility] CLIA [id number] [address] [place] Creatinine [Mass/Vol] 0.49 mg/dL Low 0.58-0.96 [facility] Comment on above: Order Comment: Speci men Type: BLOOD SPECIMEN Ordering Facility: [facility] Address: [address] [address] Performed By: #### 2 4323-8, 3084-1, 26802-1 #### [facility] CLIA [id number] [address] [place] ESTIMATED GLOMERULAR FILTRATION RATE 138 mL/min/1.73m??? Normal >=60 [facility] Comment on above: Order Comment: Speci men Type: BLOOD SPECIMEN Ordering Facility: [facility] Address: [address] [place] [address] Result Comment: Majo mated Glomerular Filtration Rate [...] GFR. Performed By: #### 2 4323-8, 3084-1, 56494-2 #### [facility] CLIA [id number] 1 [place] [address] [place] Glucose [Mass/Vol] 110 mg/dL High 74-99 [facility] Comment on above: Order Comment: Flor martell Type: BLOOD SPECIMEN Ordering Facility: [facility] Address: [address] [place] [address] Result Comment: The [place] Diabetes [employer] (ADA) provides guidance for cutoff [...] Standards of Medical Care in Diabetes 2016, [place] [employer]. Diabetes Care. 2016.39(Suppl 1). Performed By: #### 2 4323-8, 3084-1, 16849-0 #### [facility] CLIA [id number] 1 [place] [address] [place] Potassium [Moles/Vol] 3.8 mmol/L Normal 3.7-5.1 [facility] Comment on above: Order Comment: Flor martell Type: BLOOD SPECIMEN Ordering Facility: [facility] Address: [address] [place] [address] Performed By: #### 2 4323-8, 3084-1, 56440-8 #### [facility] CLIA [id number] 1 [place] [address] [place] Protein [Mass/Vol] 4.7 g/dL Low 6.3-8.0 [facility] Comment on above: Order Comment: Speci men Type: BLOOD SPECIMEN Ordering Facility: [facility] Address: [address] [place] [address] Performed By: #### 2 4323-8, 3084-1, 36007-0 #### [facility] CLIA [id number] [address] [place] Sodium [Moles/Vol] 134 mmol/L Low 136-144 [facility] Comment on above: Order Comment: Speci men Type: BLOOD SPECIMEN Ordering Facility: [facility] Address: [address] [place] [address] Performed By: #### 2 4323-8, 4-1, 04485-2 #### [facility] CLIA [id number] [address] OF [facility] Urea nitrogen [Mass/Vol] 6 mg/dL Low 7-21 [facility] Comment on above: Order Comment: Speci men Type: BLOOD SPECIMEN Ordering Facility: [facility] Address: [address] [place] [address] Performed By: #### 2 4323-8, 3083-1, 83477-2 #### [facility] CLIA [id number] [address] [place] Albumin [Mass/Vol] 2.7 g/dL Low 3.9-4.9 [facility] Comment on above: Order Comment: Speci men Type: BLOOD SPECIMEN Ordering Facility: [facility] Address: [address] [place] [address] Performed By: #### 2 4323-8, 3084-1, 54610-5 #### [facility] CLIA [id number] [address] [place] ALP [Catalytic activity/Vol] 64 U/L Normal 34-123 [facility] Comment on above: Order Comment: Speci men Type: BLOOD SPECIMEN Ordering Facility: [facility] Address: [address] [place] [address] Performed By: #### 2 4323-8, 3084-1, 38989-4 #### [facility] CLIA [id number] [address] [place] With P-5'-P [Catalytic activity/Vol] 144 U/L High 7-38 [facility] Comment on above: Order Comment: Speci men Type: BLOOD SPECIMEN Ordering Facility: [facility] Address: [address] [address] Performed By: #### 2 4323-8, 3084-1, 06883-0 #### [facility] CLIA [id number] [address] [facility] Anion gap [Moles/Vol] 11 mmol/L Normal 9-18 [facility] Comment on above: Order Comment: Speci men Type: BLOOD SPECIMEN Ordering Facility: [facility] Address: [address] [address] Performed By: #### 2 4323-8, 3084-1, 95143-1 #### [facility] CLIA [id number] [address] [place] With P-5'-P [Catalytic activity/Vol] 113 U/L High 13-35 [facility] Comment on above: Order Comment: Speci men Type: BLOOD SPECIMEN Ordering Facility: [facility] Address: [address] [address] Performed By: #### 2 4323-8, 3084-1, 19619-2 #### [facility] CLIA [id number] [address] [place] Bilirubin [Mass/Vol] 1.0 mg/dL Normal 0.2-1.3 [facility] Comment on above: Order Comment: Speci men Type: BLOOD SPECIMEN Ordering Facility: [facility] Address: [address] [address] Performed By: #### 2 4323-8, 3084-1, 95211-9 #### [facility] CLIA [id number] 1 [place] [address] [place] Calcium [Mass/Vol] 6.5 mg/dL Low 8.5-10.2 [facility] Comment on above: Order Comment: Speci men Type: BLOOD SPECIMEN Ordering Facility: [facility] Address: [address] [place] [address] Performed By: #### 2 4323-8, 3084-1, 92161-8 #### [facility] CLIA [id number] 1 [place] [address] [place] Chloride [Moles/Vol] 90 mmol/L Low 97-105 [facility] Comment on above: Order Comment: Speci men Type: BLOOD SPECIMEN Ordering Facility: [facility] Address: [address] [place] [address] Performed By: #### 2 4323-8, 3084-1, 55575-0 #### [facility] CLIA [id number] [address] [facility] CO2 [Moles/Vol] 19 mmol/L Low 22-30 [facility] Comment on above: Order Comment: Speci men Type: BLOOD SPECIMEN Ordering Facility: [facility] Address: [address] [place] [address] Performed By: #### 2 4323-8, 3084-1, 47598-6 #### [facility] CLIA [id number] [address] [place] Creatinine [Mass/Vol] 0.51 mg/dL Low 0.58-0.96 [facility] Comment on above: Order Comment: Speci men Type: BLOOD SPECIMEN Ordering Facility: [facility] Address: [address] [place] [address] Performed By: #### 2 4323-8, 3084-1, 66176-8 #### [facility] CLIA [id number] [address] [place] ESTIMATED GLOMERULAR FILTRATION RATE 136 mL/min/1.73m??? Normal >=60 [facility] Comment on above: Order Comment: Flor martell Type: BLOOD SPECIMEN Ordering Facility: [facility] Address: [address] [phone] Result Comment: Majo mated Glomerular Filtration Rate [...] GFR. Performed By: #### 2 4323-8, 3084-1, 03270-3 #### [facility] CLIA [id number] 1 [place] [address] [place] Glucose [Mass/Vol] 102 mg/dL High 74-99 [facility] Comment on above: Order Comment: Flor martell Type: BLOOD SPECIMEN Ordering Facility: [facility] Address: [address] [place] [address] Result Comment: The [place] Diabetes Association (ADA) provides guidance for cutoff [...] Standards of Medical Care in Diabetes 2016, [place] [employer]. Diabetes Care. 2016.39(Suppl 1). Performed By: #### 2 4323-8, 3084-1, 82587-6 #### [facility] CLIA [id number] 1 [place] [address] [place] Potassium [Moles/Vol] 3.6 mmol/L Low 3.7-5.1 [facility] Comment on above: Order Comment: Flor martell Type: BLOOD SPECIMEN Ordering Facility: [facility] Address: [address] Performed By: #### 2 4323-8, 3084-1, 77462-9 #### [facility] CLIA [id number] [address] [place] Protein [Mass/Vol] 4.8 g/dL Low 6.3-8.0 [facility] Comment on above: Order Comment: Speci men Type: BLOOD SPECIMEN Ordering Facility: [facility] Address: [address] [place] [address] Performed By: #### 2 4323-8, 3084-1, 75272-7 #### [facility] CLIA [id number] [address] [place] Sodium [Moles/Vol] 120 mmol/L Low 136-144 [facility] Comment on above: Order Comment: Speci men Type: BLOOD SPECIMEN Ordering Facility: [facility] Address: [address] [place] [address] Performed By: #### 2 4323-8, 3083-1, 49738-9 #### [facility] CLIA [id number] [address] [place] Urea nitrogen [Mass/Vol] 7 mg/dL Normal 7-21 [facility] Comment on above: Order Comment: Speci men Type: BLOOD SPECIMEN Ordering Facility: [facility] Address: [address] [place] [address] Performed By: #### 2 4323-8, 3083-1, 72745-1 #### [facility] CLIA [id number] [address] [place] Albumin [Mass/Vol] 3.1 g/dL Low 3.9-4.9 [facility] Comment on above: Order Comment: Speci men Type: BLOOD SPECIMEN Ordering Facility: [facility] Address: [address] [place] [address] Performed By: #### 2 4323-8, 3084-1, 02492-6 #### [facility] CLIA [id number] [address] [place] ALP [Catalytic activity/Vol] 78 U/L Normal 34-123 [facility] Comment on above: Order Comment: Speci men Type: BLOOD SPECIMEN Ordering Facility: [facility] Address: [address] [place] [address] Performed By: #### 2 4323-8, 3084-1, 45209-7 #### [facility] CLIA [id number] [address] [facility] ALT With P-5'-P [Catalytic activity/Vol] 205 U/L High 7-38 [facility] Comment on above: Order Comment: Speci men Type: BLOOD SPECIMEN Ordering Facility: [facility] Address: [address] [place] [address] Performed By: #### 2 4323-8, 3084-1, 92982-0 #### [facility] CLIA [id number] [address] [facility] Anion gap [Moles/Vol] 15 mmol/L Normal 9-18 [facility] Comment on above: Order Comment: Speci men Type: BLOOD SPECIMEN Ordering Facility: [facility] Address: [address] [place] [address] Performed By: #### 2 4323-8, 3084-1, 54632-2 #### [facility] CLIA [id number] [address] [place] With P-5'-P [Catalytic activity/Vol] 221 U/L High 13-35 [facility] Comment on above: Order Comment: Speci men Type: BLOOD SPECIMEN Ordering Facility: [facility] Address: [address] [place] [address] Performed By: #### 2 4323-8, 3084-1, 05327-8 #### [facility] CLIA [id number] [address] [place] Bilirubin [Mass/Vol] 2.1 mg/dL High 0.2-1.3 [facility] Comment on above: Order Comment: Speci men Type: BLOOD SPECIMEN Ordering Facility: [facility] Address: [address] [address] Performed By: #### 2 4323-8, 3084-1, 09865-5 #### [facility] CLIA [id number] [address] [place] Calcium [Mass/Vol] 8.4 mg/dL Low 8.5-10.2 [facility] Comment on above: Order Comment: Speci men Type: BLOOD SPECIMEN Ordering Facility: [facility] Address: [address] [address] Performed By: #### 2 4323-8, 4-1, 64040-4 #### [facility] CLIA [id number] 1 [place] [address] [place] Chloride [Moles/Vol] 100 mmol/L Normal 97-105 [facility] Comment on above: Order Comment: Speci men Type: BLOOD SPECIMEN Ordering Facility: [facility] Address: [address] [place] [address] Performed By: #### 2 4323-8, 3083-1, 60131-8 #### [facility] CLIA [id number] [address] [place] CO2 [Moles/Vol] 18 mmol/L Low 22-30 [facility] Comment on above: Order Comment: Speci men Type: BLOOD SPECIMEN Ordering Facility: [facility] Address: [address] [address] Performed By: #### 2 4323-8, 3083-1, 53485-4 #### [facility] CLIA [id number] 1 [place] [address] [place] Creatinine [Mass/Vol] 0.56 mg/dL Low 0.58-0.96 [facility] Comment on above: Order Comment: Speci men Type: BLOOD SPECIMEN Ordering Facility: [facility] Address: [address] [address] Performed By: #### 2 4323-8, 3084-1, 39366-2 #### [facility] CLIA [id number] 1 [place] [address] [place] ESTIMATED GLOMERULAR FILTRATION RATE 133 mL/min/1.73m??? Normal >=60 [facility] Comment on above: Order Comment: Flor martell Type: BLOOD SPECIMEN Ordering Facility: [facility] Address: [address] [place] [address] Result Comment: Majo mated Glomerular Filtration Rate [...] GFR. Performed By: #### 2 4323-8, 3084-1, 97955-6 #### [facility] CLIA [id number] [address] [place] [address] [place] Glucose [Mass/Vol] 73 mg/dL Low 74-99 [facility] Comment on above: Order Comment: Flor martell Type: BLOOD SPECIMEN Ordering Facility: [facility] Address: [address] [place] [address] Result Comment: The [place] [employer] (ADA) provides guidance for cutoff [...] Standards of Medical Care in Diabetes 2016, [place] [employer]. Diabetes Care. 2016.39(Suppl 1). Performed By: #### 2 4323-8, 3084-1, 28224-6 #### [facility] CLIA [id number] 1 [place] [address] [place] Potassium [Moles/Vol] 3.4 mmol/L Low 3.7-5.1 [facility] Comment on above: Order Comment: Speci men Type: BLOOD SPECIMEN Ordering Facility: [facility] Address: [address] [place] [address] Performed By: #### 2 4323-8, 3084-1, 88233-4 #### [facility] CLIA [id number] [address] [address] [place] Protein [Mass/Vol] 5.6 g/dL Low 6.3-8.0 [facility] Comment on above: Order Comment: Speci men Type: BLOOD SPECIMEN Ordering Facility: [facility] Address: [address] [place] [address] Performed By: #### 2 4323-8, 3083-1, 39431-2 #### [facility] CLIA [id number] [address] [place] [address] [facility] Sodium [Moles/Vol] 133 mmol/L Low 136-144 [facility] Comment on above: Order Comment: Speci men Type: BLOOD SPECIMEN Ordering Facility: [facility] Address: [address] [place] [address] Performed By: #### 2 4323-8, 3083-1, 10309-9 #### [facility] CLIA [id number] [address] STATES OF [facility] Urea nitrogen [Mass/Vol] 8 mg/dL Normal 7-21 [facility] Comment on above: Order Comment: Speci men Type: BLOOD SPECIMEN Ordering Facility: [facility] Address: [address] [place] [address] Performed By: #### 2 4323-8, 4-1, 00287-9 #### [facility] CLIA [id number] [address] [place] Creatinine Unsp time (U) [Ma ss/Vol]on 02-07-2023 Creatinine (U) [Mass/Vol] 70.9 mg/dL Normal 42.2-237.9 [facility] Comment on above: Order Comment: Speci men Type: BLOOD SPECIMEN Ordering Facility: [facility] Address: [place] [address] Performed By: #### 2 4323-8, 3084-1, 90133-6 #### [facility] CLIA [id number] 1 [place] [id number] [facility] [place] Fibrinogen PPP-mCncon 2022 Fibrinogen Coag (PPP) [Mass/Vol] 449 mg/dL High 200-400 [facility] Comment on above: Order Comment: Flor martell Type: BLOOD SPECIMEN Ordering Facility: [facility] Address: [place] [address] Performed By: #### 2 4323-8, 3084-1, 84816-4 #### [facility] CLIA [id number] [address] [place] HISTORY PHYSICALon 3 HISTORY PHYSICAL HNO ID: [id number] Author: Yarely Sherwood MD Service: Obstetrics Author [...] reason for arrival: CHIEF COMPLAINT: Transfer from [place] HISTORY OF THE PRESENT ILLNESS: The patient is a 22 year old female, , who is at 29w1d with an JAX of 04/24/2023, by Ultrasound dating method. Patient is here as a transfer from [facility], where she was found to have [...] : 145/moderate/+accels/ no decels Cat 1, reactive [place]: q4 min ULTRASOUND: US findings: Head position: [...] units) Date/Time Value 02/06/2023 232 Negative SARS-CoV-2 (Agent of COVID-19) (no units) Date/Time (more content not included)... Normal [facility] HISTORY PHYSICAL HNO ID: [id number] Author: Yarely Sherwood MD Service: Obstetrics Author Type: Resident Type: HANDP Filed: 02/07/2023 2:58 AM Note Text: Attestation signed by Areli Wing MD at 02/08/2023 9:50 AM Attending Note I personally saw and examined the patient. I reviewed the resident's note. I agree with the resident's assessment and plan unless otherwise noted. Transfer accepted by [facility], Dr. Bauer for presumed HELLP syndrome. Plan for delivery via for which [facility] was consulted. Patient typed and crossed for 2 units of whole blood and 2 of platelets. Signature: Areli Wing MD Date: 02/08/2023 Time: 9:49 AM OBSTETRICS HISTORY AND PHYSICAL SERVICE DATE: February 07, 2023 SERVICE TIME: 12:21 AM Subjective Patient's stated reason for arrival: CHIEF COMPLAINT: Transfer from [place] HISTORY OF THE PRESENT ILLNESS: The patient is a 22 year old female, , who is at 29w1d with an JAX of 04/24/2023, by Ultrasound dating method. Patient is here as a transfer from [facility], where she was found to have [...] : 145/moderate/+accels/ no decels Cat 1, reactive [place]: q4 min ULTRASOUND: US findings: Head position: [...] A Rh(D) (no units) Date/Time Value 02/06/2023 2322 Negative SARS-CoV-2 (Ag (more content not included)... Normal [facility] OPERATIVE NOon 02-07-2023 OPERATIVE NO HNO ID: [id number] Author: Yarely Sherwood MD Service: Obstetrics Author Type: Resident Type: Operative Report Filed: 02/07/2023 3:57 AM Note Text: Attestation signed by Areli Wing MD at 02/07/2023 3:01 PM Attestation: I was present for the critical and valentine portions of the surgery and I was immediately available to provide assistance. Low transverse delivery was possible due to a developed enough lower uterine segment. Areli Wing MD OB OPERATIVE/PROCEDURE REPORT LOG ID: [id number] Surgery/Procedure Date: 02/07/2023 Incision/Procedure Start Time: 1:07 AM Incision Close/Procedure End Time: 2:34 AM Surgeon(s)/Procedural ist(s) and Currency Machine Operator(s): Surgeon(s) and Role: * Areli Wing MD - Primary * Yarely Sherwood MD [...] old female at 29w1d who presented to [facility] Estimated Date of Delivery: 04/24/23 as a transfer of care from [facility] with presumed HELLP syndrome. She presented to [facility] with abdominal pain, was found to have severe thrombocytopenia and transaminitis, and was life flighted to [facility]. Her course was complicated by HELLP syndrome, . The patient was GBSunknown. Following discussion with JANEEN, the decision was made to proceed to delivery due to HELLP syndrome. Due to the patient's lab values and remote nature from delivery, the decision was made to proceed with a delivery. Postop Diagnosis: HELLP syndrome Procedures and Anesthesia: Procedure(s) and Anesthesia Type: * SECTION Information for the patient's : Fernando Lopez [[id number]] Type: , Low Transverse Operative Findings: Weight: [...] along with (more content not included)... Normal [facility] Osmolality SerPlon Osmolality [Osmolality] 278 mosm/kg Normal 275-300 [facility] Comment on above: Order Comment: Speci men Type: BLOOD SPECIMEN Ordering Facility: [facility] Address: [address] [place] [address] Performed By: #### 2 4323-8, 3084-1, 98375-0 #### [facility] CLIA [id number] [address] Osmolality Uron 02-07-2023 Osmolality (U) [Osmolality] 646 mosm/kg Normal 50-1200 [facility] Comment on above: Order Comment: Speci men Type: BLOOD SPECIMEN Ordering Facility: [facility] Address: [address] [place] [address] Performed By: #### 2 4323-8, 3084-1, 41575-5 #### [facility] CLIA [id number] [address] [place] [address] POST-DELIVERY RH IGGon 02-07 ABO A Normal [facility] Comment on above: Order Comment: Speci men Type: BLOOD SPECIMEN Ordering Facility: [facility] Address: [address] [place] [address] Performed By: #### 5 8410-2 #### [facility] CLIA [id number] [address] SCREEN Negative Normal [facility] Comment on above: Order Comment: Speci men Type: BLOOD SPECIMEN Ordering Facility: [facility] Address: [address] [place] [address] Result Comment: Kit Lot Number and Expiration Date: Lot #: [id number] 02-17-23 Performed By: #### 5 8410-2 #### [facility] CLIA [id number] [address] [place] KB REFLEX No Normal [facility] Comment on above: Order Comment: Speci men Type: BLOOD SPECIMEN Ordering Facility: [facility] Address: [address] [place] [address] Performed By: #### 5 8410-2 #### [facility] CLIA [id number] [address] [facility] Rh Nom (Bld) Negative Normal [facility] Comment on above: Order Comment: Speci men Type: BLOOD SPECIMEN Ordering Facility: [facility] Address: [address] [place] [address] Performed By: #### 5 8410-2 #### [facility] CLIA [id number] [address] PT panel Coag (PPP)on 2022 INR Coag (PPP) [Relative time] {INR} Low 0.9-1.3 [facility] Comment on above: Order Comment: Speci men Type: BLOOD SPECIMEN Ordering Facility: [facility] Address: [address] [place] [address] Result Comment: Susan min K Antagonist (VKA) Therapeutic Range: INR 2 to 3 (Target INR of 2.5) Note: For patients treated with VKA drugs, such as warfarin, the [place] [employer] 2012 Guideline recommends [...] to 3.5 (target INR of 3). Demetria GH, et al. Chest 2012, 141:7S-47S Nereida RA, et al. [facility] 2017, 70: 252-289 Performed By: #### 2 4323-8, 3084-1, 05214-3 #### [facility] CLIA [id number] [address] [place] PT Coag (PPP) [Time] 9.5 s Low 9.7-13.0 [facility] Comment on above: Order Comment: Speci men Type: BLOOD SPECIMEN Ordering Facility: [facility] Address: [place] [address] Performed By: #### 2 4323-8, 3084-1, 09784-6 #### [facility] CLIA [id number] [address] [facility] Prot/Creat Uron 02-07-2023 Protein/Creatinine (U) [Mass ratio] 0.32 mg/mg High <0.15 [facility] Comment on above: Order Comment: Speci men Type: BLOOD SPECIMEN Ordering Facility: [facility] Address: [place] [address] Result Comment: Adul t Proteinuria Categories: <0.15 mg/mg is considered normal to mildly increased 0.15 - 0.50 mg/mg is considered moderately increased >0.50 mg/mg is considered severely increased KDIGO. (2013). KDIGO 2012 Clinical Practice Guideline for the Evaluation and Management of Chronic Kidney Disease. Official Journal of the International Society of Nephrology, 3(1), 1-150. Performed By: #### 2 4323-8, 1, 69301-3 #### [facility] CLIA [id number] [address] [place] [address] [facility] Protein/Creatinine (U) [Mass ratio]on 02-07-2023 Creatinine (U) [Mass/Vol] 116.5 mg/dL Normal 42.2-237.9 [facility] Comment on above: Order Comment: Speci men Type: BLOOD SPECIMEN Ordering Facility: [facility] Address: [place] [address] Performed By: #### 2 4323-8, 3081, 03525-8 #### [facility] CLIA [id number] [address] [place] [address] [facility] Protein (U) [Mass/Vol] 37 mg/dL High 0-20 [facility] Comment on above: Order Comment: Speci men Type: BLOOD SPECIMEN Ordering Facility: [facility] Address: [place] [address] Performed By: #### 2 4323-8, 3084-1, 63528-7 #### [facility] CLIA [id number] [address] Sodium ?Tm Ur-sCncon 023 Sodium Unsp time (U) [Moles/Vol] 157 mmol/L Normal 14-216 [facility] Comment on above: Order Comment: Speci men Type: BLOOD SPECIMEN Ordering Facility: [facility] Address: [address] [place] [address] Performed By: #### 2 4323-8, 3084-1, 27910-5 #### [facility] CLIA [id number] [address] TYPE + SCREEN PRENATALon ABO A Normal [facility] Comment on above: Order Comment: Speci men Type: BLOOD SPECIMEN Ordering Facility: [facility] Address: [address] [place] [address] Performed By: #### 5 8410-2 #### [facility] CLIA [id number] [address] HISTORICAL AB SCR STATUS Negative Normal [facility] Comment on above: Order Comment: Speci men Type: BLOOD SPECIMEN Ordering Facility: [facility] Address: [address] [place] [address] Performed By: #### 5 8410-2 #### [facility] CLIA [id number] [address] Rh Nom (Bld) Negative Normal [facility] Comment on above: Order Comment: Speci men Type: BLOOD SPECIMEN Ordering Facility: [facility] Address: [address] [place] [address] Performed By: #### 5 8410-2 #### [facility] CLIA [id number] [address] TYPE AND SCREEN EXPIRATION 02/09/2023 23:59 Normal [facility] Comment on above: Order Comment: Speci men Type: BLOOD SPECIMEN Ordering Facility: [facility] Address: [address] [place] [address] Performed By: #### 5 8410-2 #### [facility] CLIA [id number] [address] [place] [address] [facility] URIC ACID RANDOM URon 2022 Urate (U) [Mass/Vol] 8.5 mg/dL Low 10.0-90.0 [facility] Comment on above: Order Comment: Speci men Type: URINE SPECIMEN Ordering Facility: [facility] Address: [address] [place] [address] Performed By: #### U URICR #### [facility] CLIA [id number] [address] [place] [address] [facility] Urate SerPl-mCncon Urate [Mass/Vol] 5.9 mg/dL Normal 2.5-6.6 [facility] Comment on above: Order Comment: Speci men Type: BLOOD SPECIMEN Ordering Facility: [facility] Address: [address] [place] [address] Performed By: #### 2 4323-8, 3084-1, 46638-3 #### [facility] CLIA [id number] [address] [place] [address] [place] aPTT PPPon 02-07-2023 aPTT Coag (PPP) [Time] 32.7 s High 23.0-32.4 [facility] Comment on above: Order Comment: Speci men Type: BLOOD SPECIMEN Ordering Facility: [facility] Address: [address] [place] [address] Performed By: #### 2 4323-8, 3084-1, 28623-1 #### [facility] CLIA [id number] [address] [place] [address] [facility] Absolute lymphocyte countOrd ered By: Mary Arredondo on 02-06-2023 Lymphocytes Auto (Unsp spec) [#/Vol] 1.42 10*3/uL 0.83-4.51 [facility] Basophil percentageOrdered B y: Mary Arredondo on 02-06-2023 Amylase [Catalytic activity/Vol] 35 U/L 25-115 [facility] Basophils/100 WBC (Bld) 0.3 % 0-1 [facility] Bilirubin [Mass/Vol] 2.00 mg/dL 0.20-1.00 [facility] Comment on above: For patients on eltr ombopag therapy, use of Dimension [place] TBIL is not recommended. Chloride [Moles/Vol] 107 mmol/L 98-107 [facility] Eosinophils/100 WBC (Bld) 1.8 % 0-5 [facility] Glucose [Mass/Vol] 71 mg/dL 74-106 [facility] Neutrophils (Bld) [#/Vol] 8.6 10*3/uL 2.0-7.7 [facility] Neutrophils/100 WBC (Bld) 77.9 % 47-70 [facility] Potassium [Moles/Vol] 3.4 mmol/L 3.5-5.1 [facility] Protein [Mass/Vol] 6.0 g/dL 6.4-8.2 [facility] Sodium [Moles/Vol] 137 mmol/L 136-145 [facility] WBC (Bld) [#/Vol] 11.1 10*3/uL 4.4-11.0 [facility] Blood erythrocytes count (nu mber/volume)Ordered By: Mary Arredondo on 02-06-2023 RBC (Bld) [#/Vol] 4.00 10*6/uL 4.2-5.4 [facility] Blood hemoglobin measurement (mass/volume)Ordered By: Mary Arredondo on 02-06-2023 Hemoglobin (Bld) [Mass/Vol] 11.0 g/dL 12.0-15.0 [facility] Blood lymphocytes/100 leukoc ytesOrdered By: Mary Arredondo on 02-06-2023 Lymphocytes/100 WBC (Bld) 12.8 % 19-41 [facility] Blood manual differential co mment interpretation (narrative result)Ordered By: Mary Arredondo on 02-06-2023 Manual differential comment Junito (Bld) [Interp] SCANNED [facility] Comment on above: THROMBOCYTOPENIA NOT ED Blood monocytes/100 leukocyt esOrdered By: Mary Arredondo on 02-06-2023 Monocytes/100 WBC (Bld) 6.2 % 0-10 [facility] Blood platelet mean volumeOr dered By: Mary Arredondo on 02-06-2023 Platelet mean volume (Bld) [Entitic vol] 11.8 fL 6.2-12.0 [facility] Determination of erythrocyte mean corpuscular volume (MCV)Ordered By: Mary Arredondo on 02-06-2023 MCV (RBC) [Entitic vol] 83.0 fL 81-99 [facility] Hematocrit Auto (Bld) [Volum e fraction]Ordered By: Mary Arredondo on 02-06-2023 Hematocrit (Bld) [Volume fraction] 33.2 % 37-47 [facility] INR in Blood by Coagulation assayOrdered By: Mary Arredondo on 02-06-2023 INR Coag (Bld) [Relative time] 1.2 {INR} [facility] Laboratory - Chemistry and C hemistry - challengeOrdered By: Mary Arredondo on 02-06-2023 ALP [Catalytic activity/Vol] 81 U/L 45-117 [facility] ALT [Catalytic activity/Vol] 233 U/L 13-56 [facility] CO2 [Moles/Vol] 23.0 mmol/L 21.0-32.0 [facility] Globulin (S) [Mass/Vol] 3.6 g/dL 2.2-4.2 [facility] Lipase [Catalytic activity/Vol] 19 U/L 13-75 [facility] Comment on above: Please note:LIPASE r evised reference range effective 22. New Lipase methodology. Expected to produce lower values than the previous assay method. NEW Reference Range: 13 - 75 U/L Urea nitrogen/Creatinine [Mass ratio] 17.2 mg/mg 10-20 [facility] Laboratory - CoagulationOrde red By: Mary Arredondo on 02-06-2023 aPTT Coag (Bld) [Time] 40.3 s 24.1-36.2 [facility] PT Coag (PPP) [Time] 15.0 s 11.7-14.9 [facility] - Hematology and Cell countsOrdered By: Mary Arredondo on 02-06-2023 Erythrocyte distribution width (RBC) [Entitic vol] 40.9 fL 35.1-43.9 [facility] Erythrocyte distribution width (RBC) [Ratio] 14.0 % 11.6-14.6 [facility] Immature granulocytes/100 WBC (Bld) 1.000 % 0.0-0.9 [facility] Comment on above: IG% - Immature Granu locytes (promyelocytes, myelocytes and metamyelocytes) > 1% indicates that a LEFT SHIFT is Present. MCH (RBC) [Entitic mass] 27.5 pg 27.0-32.0 [facility] Nucleated RBC/100 WBC (Bld) [Ratio] 0 % 0-5 [facility] MCHC Auto (RBC) [Mass/Vol]Or dered By: Mary Arredondo on 02-06-2023 MCHC (RBC) [Mass/Vol] 33.1 g/dL 32-36 [facility] No Panel InformationOrdered By: Mary Arredondo on 02-06-2023 Fibrinogen 395 mg/dl 203-444 [facility] Estimated Creatinine Clearance Calc 143.63 ml/min [facility] Estimated GFR (MDRD) Amer 167 mL/min >60 [facility] Comment on above: GFR Calc Estimated GFR (MDRD) Non-Af Amer 138 mL/min >60 [facility] Comment on above: Non- GFR Calc Platelets bldOrdered By: Abdirahman Arredondo on 02-06-2023 Platelets (Bld) [#/Vol] 36 10*3/uL 150-450 [facility] Comment on above: CRITICAL VALUE VERIF IED. CALLED TO [id number] Uyen Fernando.RESULTS READ BACK BY SAME . Review by pathologistOrdered By: Mary Arredondo on 02-06-2023 Pathologist review Junito (Unsp spec) [Interp] May foll [facility] Serum or plasma albumin emilie urement (mass/volume)Ordered By: Mary Arredondo on 02-06-2023 Albumin [Mass/Vol] 2.4 g/dL 3.2-5.0 [facility] Serum or plasma albumin/glob ulin mass ratioOrdered By: Mary Arredondo on 02-06-2023 Albumin/Globulin [Mass ratio] 0.7 {ratio} 0.9-2.4 [facility] Serum or plasma calcium emilie urement (mass/volume)Ordered By: Mary Arredondo on 02-06-2023 Calcium [Mass/Vol] 8.6 mg/dL 8.5-10.1 [facility] Serum or plasma creatinine m easurement (mass/volume)Ordered By: Mary Arredondo on 02-06-2023 Creatinine [Mass/Vol] 0.58 mg/dL 0.55-1.02 [facility] Comment on above: The validity of the calculated GFR & GFRAA in patients over 70 years has not been determined. Clinical correlation is essential. Serum or plasma urea nitroge n measurement (mass/volume)Ordered By: Mary Arredondo on 02-06-2023 Urea nitrogen [Mass/Vol] 10 mg/dL 7-18 [facility] Thin prep Papanicolaou smear with manual screeningOrdered By: Mary Arredondo on 02-06-2023 Thin prep Papanicolaou smear with manual screening 224 U/L 15-37 [facility] Thin prep Papanicolaou smear with manual screening 7 5-15 [facility] URINE OB DIP B/Oon 3 Glucose Ql (U) Negative Neg mg/dL [facility] Protein.monoclonal (U) [Mass/Vol] trace Neg mg/dL [facility] Urine creatinine measurement (mass/volume)Ordered By: Mary Arredondo on 02-06-2023 Creatinine (U) [Mass/Vol] 230.00 mg/dL NO RANGE EST. [facility] Urine protein measurement (m ass/volume)Ordered By: Mary Arredondo on 02-06-2023 Protein (U) [Mass/Vol] 71.3 mg/dL 0.0-11.8 [facility] Urine protein/creatinine mas s ratioOrdered By: Mary Arredondo on 02-06-2023 Protein/Creatinine (U) [Mass ratio] 310 mg/g CRE 0-200 [facility] Bilirubin Test strip Ql (U)O rdered By: Terra Herrera on 02-04-2023 Bilirubin Ql (U) Negative Negative [facility] Culture, urineOrdered By: Enio Herrera on 02-04-2023 Bacteria identified Cx Nom (U) Positive [facility] Ketones Test strip Ql (U)Ord ered By: Terra Herrera on 02-04-2023 Ketones Ql (U) Negative Negative [facility] Nitrite Test strip Ql (U)Ord ered By: Terra Herrera on 02-04-2023 Nitrite Ql (U) Negative Negative [facility] Protein Test strip Ql (U)Ord ered By: Terra Herrera on 02-04-2023 Protein Ql (U) Negative Negative [facility] Urine blood detectionOrdered By: Terra Herrera on 02-04-2023 RBC Ql (U) Negative Negative [facility] Urine clarityOrdered By: Ninfa Herrera on 02-04-2023 Clarity (U) Sl. Cloudy Clear [facility] Urine color determinationOrd ered By: Terra Herrera on 02-04-2023 Color (U) Yellow Yellow [facility] Urine glucose detectionOrder ed By: Terra Herrera on 02-04-2023 Glucose Ql (U) Normal mg/dl Normal [facility] Urine leukocyte esterase det ection by dipstickOrdered By: Terra Herrera on 02-04-2023 Leukocyte esterase Test strip Ql (U) Negative Negative [facility] Urine pHOrdered By: Terra Herrera on 02-04-2023 pH (U) 7.0 [pH] 5.0 - 8.0 [facility] Urine specific gravity measu rementOrdered By: Terra Herrera on 02-04-2023 Specific gravity (U) [Rel density] 1.010 1.002-1.030 [facility] Urobilinogen Auto test strip Ql (U)Ordered By: Terra Herrera on 02-04-2023 Urobilinogen Ql (U) Normal mg/dl Normal [facility] URINE OB DIP B/Oon 3 Glucose Ql (U) Negative Neg mg/dL [facility] Protein.monoclonal (U) [Mass/Vol] Negative Neg mg/dL [facility] OBSTETRIC ULTRASOUND WHIon 0 12-06-2022 [facility] URINE OB DIP B/Oon 3 Glucose Ql (U) Negative Neg mg/dL [facility] Protein.monoclonal (U) [Mass/Vol] Negative Neg mg/dL [facility] URINE OB DIP B/Oon 3 Glucose Ql (U) Negative Neg mg/dL [facility] Protein.monoclonal (U) [Mass/Vol] Negative Neg mg/dL [facility] CBC panel Auto (Bld)on 10-06 Erythrocyte distribution width (RBC) [Ratio] 12.6 % 11.5 - 15.0 % [facility] Hematocrit (Bld) [Volume fraction] 38.8 % 36.0 - 46.0 % [facility] Hemoglobin (Bld) [Mass/Vol] 13.4 g/dL 11.5 - 15.5 g/dL [facility] MCH (RBC) [Entitic mass] 27.0 pg 26. 0 - 34.0 pg [facility] MCHC (RBC) [Mass/Vol] 34.5 g/dL 30.5 - 36.0 g/dL [facility] MCV (RBC) [Entitic vol] 78.2 fL Low 80.0 - 100.0 fL [facility] Nucleated RBC (Bld) [#/Vol] <0.01 k/uL [facility] Platelet mean volume (Bld) [Entitic vol] 9.8 fL 9.0 - 12.7 fL [facility] Platelets (Bld) [#/Vol] 252 10*3/uL 150 - 400 k/uL [facility] RBC (Bld) [#/Vol] 4.96 10*6/uL 3.90 - 5.2 0 m/uL [facility] WBC (Bld) [#/Vol] 7.91 10*3/uL 3.70 - 11. 00 k/uL [facility] URINE OB DIP B/Oon 3 Glucose Ql (U) Negative Neg mg/dL [facility] Protein.monoclonal (U) [Mass/Vol] Negative Neg mg/dL [facility] Progress Noteon 02-24-2022 [employer] Authentication Interface Message Text Patient ID: Nestor [...] With Score - Health Risk Assessment - [facility] Anxiety Return in about 1 year (around [...] second step placed next week. Working at [employer] this summer. Doing well on lexapro. No concerns. Engaged, planning to get after nursing school. She is unaccompanied. 21 YEAR WELL CHILD Home: Nesotr has an adult to turn to for help, is permitted and able to make independent decisions and lives apart from family (lives with charline). Education: (Starting nursing school). Eating: Nestor eats regular meals including fruits and vegetables and has a calcium source. Activities & Sports: Nestor has friends and has a job ([employer]). (likes reading). Drugs: Nestor does not use [...] Screen Concerns: no parent or grandparent with MD angina peripheral or cerebrovascular disease <55 years, [...] present. No (more content not included)... Normal [facility] Progress Noteon 10-21-2021 [employer] Authentication Interface Message Text Patient ID: Nestor [...] in color of mole. Referral placed for [facility] dermatology. To call if any questions/concerns. Subjective [...] temperature source Temporal, weight 72.3 kg. Normal [facility] TSH with reflex T4FRon 07-20 TSH with reflex T4FR 1.065 uIU/mL Normal 0.350-5.500 [facility] Comment on above: Order Comment: With differential. Is this specimen being sent to an external lab?->No Release to patient->Automatic [id number]&Blood^\S\^Venous&Venous Performed By: #### T SHR #### [facility] [place] [address] [place] [address] Vitamin D 25 OHon 07-20-2021 25 OH Vitamin D 94 ng/mL Normal 30-100 [facility] Comment on above: Order Comment: With differential. Is this specimen being sent to an external lab?->No Release to patient->Automatic 75424&Blood^\S\^Venous&Venous Result Comment: Refe rence ranges provided by [facility] are based on Endocrine Society Guidelines: Level Characterization <21 ng/mL Vitamin D deficiency 21-29 ng/mL Suboptimal Vitamin D status 30-100 ng/mL Optimal Vitamin D status >100 ng/mL Potentially toxic Vitamin D effects NOTE: New Reference Ranges effective 18 Performed By: #### V 25DH #### [place] [address] C-Reactive Proteinon 021 C-Reactive Protein 0.6 mg/dL Normal 0.0-1.0 [facility] Comment on above: Order Comment: With differential. Is this specimen being sent to an external lab?->No Release to patient->Automatic [id number]&Blood^\S\^Venous&Venous Result Comment: CRP determinations in neonates should be interpreted with caution. CRP may be elevated in circumstances not associated with inflammation (e.g. difficult delivery, pneumothorax). In premature neonates CRP levels may not rise to abnormal levels even if sepsis is present; some speculate that immature liver function decreases the ability to generate a CRP response. Performed By: #### C RP #### [place] [address] Comp Metabolic Panelon 07-19 Albumin [Mass/Vol] 3.9 g/dL Normal 3.5-5.0 [facility] Comment on above: Order Comment: With differential. Is this specimen being sent to an external lab?->No Release to patient->Automatic [id number]&Blood^\S\^Venous&Venous Performed By: #### C MP #### [place] [address] ALP [Catalytic activity/Vol] 33 U/L Low 35-104 [facility] Comment on above: Order Comment: With differential. Is this specimen being sent to an external lab?->No Release to patient->Automatic 60664&Blood^\S\^Venous&Venous Performed By: #### C MP #### [address] [address] ALT [Catalytic activity/Vol] 22 U/L Normal 0-31 [facility] Comment on above: Order Comment: With differential. Is this specimen being sent to an external lab?->No Release to patient->Automatic 23480&Blood^\S\^Venous&Venous Performed By: #### C MP #### [place] [address] AST [Catalytic activity/Vol] 23 U/L Normal 0-31 [facility] Comment on above: Order Comment: With differential. Is this specimen being sent to an external lab?->No Release to patient->Automatic 88625&Blood^\S\^Venous&Venous Performed By: #### C MP #### [place] [address] Bili,Total 0.4 mg/dl Normal 0.0-1.0 [facility] Comment on above: Order Comment: With differential. Is this specimen being sent to an external lab?->No Release to patient->Automatic 70344&Blood^\S\^Venous&Venous Performed By: #### C MP #### [place] [address] Calcium [Mass/Vol] 8.9 mg/dL Normal 7.6-11.0 [facility] Comment on above: Order Comment: With differential. Is this specimen being sent to an external lab?->No Release to patient->Automatic 95777&Blood^\S\^Venous&Venous Performed By: #### C MP #### [address] [id number] Chloride [Moles/Vol] 99 mmol/L Normal 96-108 [facility] Comment on above: Order Comment: With differential. Is this specimen being sent to an external lab?->No Release to patient->Automatic 07906&Blood^\S\^Venous&Venous Performed By: #### C MP #### [place] [address] CO2 [Moles/Vol] 25.7 mmol/L Normal 22.0-29.0 [facility] Comment on above: Order Comment: With differential. Is this specimen being sent to an external lab?->No Release to patient->Automatic 44062&Blood^\S\^Venous&Venous Performed By: #### C MP #### [place] [address] Creatinine [Mass/Vol] 0.78 mg/dL Normal 0.50-1.00 [facility] Comment on above: Order Comment: With differential. Is this specimen being sent to an external lab?->No Release to patient->Automatic 98810&Blood^\S\^Venous&Venous Result Comment: Premature 0.3-1.0 mg/dL Performed By: #### C MP #### [place] [address] Glucose [Mass/Vol] 95 mg/dL Normal 70-99 [facility] Comment on above: Order Comment: With differential. Is this specimen being sent to an external lab?->No Release to patient->Automatic 95050&Blood^\S\^Venous&Venous Result Comment: Criteria for Diagnosis of Diabetes(Effective 01/10/11): Fasting specimen (no caloric intake for at least 8 hours). <100 mg/dl Normal 100-125 mg/dl Increased Risk for Diabetes >125 mg/dl Diagnostic for Diabetes Random Glucose (any time of day without regard to last meal). >=200 mg/dl plus Classic Symptoms of Diabetes Performed By: #### C MP #### [place] [address] Potassium [Moles/Vol] 3.5 mmol/L Normal 3.3-5.1 [facility] Comment on above: Order Comment: With differential. Is this specimen being sent to an external lab?->No Release to patient->Automatic 34900&Blood^\S\^Venous&Venous Performed By: #### C MP #### [place] [address] Protein [Mass/Vol] 6.9 g/dL Normal 5.9-8.4 [facility] Comment on above: Order Comment: With differential. Is this specimen being sent to an external lab?->No Release to patient->Automatic 45744&Blood^\S\^Venous&Venous Performed By: #### C MP #### [place] [address] Sodium [Moles/Vol] 138 mmol/L Normal 133-145 [facility] Comment on above: Order Comment: With differential. Is this specimen being sent to an external lab?->No Release to patient->Automatic 79768&Blood^\S\^Venous&Venous Performed By: #### C MP #### [place] [address] Urea nitrogen [Mass/Vol] 11 mg/dL Normal 4-19 [facility] Comment on above: Order Comment: With differential. Is this specimen being sent to an external lab?->No Release to patient->Automatic 26130&Blood^\S\^Venous&Venous Performed By: #### C MP #### [place] [address] Complete Blood Counton 07-19 Differential Complete Automated Normal [facility] Comment on above: Order Comment: With differential. Is this specimen being sent to an external lab?->No Release to patient->Automatic 06210&Blood^\S\^Venous&Venous Performed By: #### C BC #### [address] [place] [address] Basophils/100 WBC (Bld) 0.70 % Normal 0.00-1.00 [facility] Comment on above: Order Comment: With differential. Is this specimen being sent to an external lab?->No Release to patient->Automatic 31788&Blood^\S\^Venous&Venous Performed By: #### C BC #### [address] [id number] Eosinophils/100 WBC (Bld) 2.50 % Normal 0.00-3.00 [facility] Comment on above: Order Comment: With differential. Is this specimen being sent to an external lab?->No Release to patient->Automatic 57611&Blood^\S\^Venous&Venous Performed By: #### C BC #### [place] [address] Erythrocyte distribution width (RBC) [Ratio] 12.2 % Normal 0.0-14.4 [facility] Comment on above: Order Comment: With differential. Is this specimen being sent to an external lab?->No Release to patient->Automatic 91693&Blood^\S\^Venous&Venous Performed By: #### C BC #### [address] [address] Hematocrit (Bld) [Volume fraction] 39.3 % Normal 36.0-44.0 [facility] Comment on above: Order Comment: With differential. Is this specimen being sent to an external lab?->No Release to patient->Automatic 30344&Blood^\S\^Venous&Venous Performed By: #### C BC #### [address] [id number] Hemoglobin (Bld) [Mass/Vol] 12.9 g/dL Normal 12.0-15.0 [facility] Comment on above: Order Comment: With differential. Is this specimen being sent to an external lab?->No Release to patient->Automatic 14734&Blood^\S\^Venous&Venous Performed By: #### C BC #### [place] [address] Immature granulocytes/100 WBC (Bld) 0.30 % Normal [facility] Comment on above: Order Comment: With differential. Is this specimen being sent to an external lab?->No Release to patient->Automatic 97419&Blood^\S\^Venous&Venous Result Comment: Nancie ture Granulocyte Percent includes promyelocytes, myelocytes, and metamyelocytes. IG% > 1.0 indicates a left shift is present. With automated differentials, bands are included in the neutrophil count and not in the Immature Granulocyte Percent. Performed By: #### C BC #### [place] [address] Lymphocytes/100 WBC (Bld) 41.4 % Normal 24.0-44.0 [facility] Comment on above: Order Comment: With differential. Is this specimen being sent to an external lab?->No Release to patient->Automatic 36337&Blood^\S\^Venous&Venous Performed By: #### C BC #### [place] [address] MCH (RBC) [Entitic mass] 26.5 pg Normal 26.0-34.0 [facility] Comment on above: Order Comment: With differential. Is this specimen being sent to an external lab?->No Release to patient->Automatic 68793&Blood^\S\^Venous&Venous Performed By: #### C BC #### [place] [address] MCHC 32.8 % Normal 31.0-37.0 [facility] Comment on above: Order Comment: With differential. Is this specimen being sent to an external lab?->No Release to patient->Automatic 66463&Blood^\S\^Venous&Venous Performed By: #### C BC #### [place] [address] MCV (RBC) [Entitic vol] 80.9 fL Normal 80.0-100.0 [facility] Comment on above: Order Comment: With differential. Is this specimen being sent to an external lab?->No Release to patient->Automatic 74129&Blood^\S\^Venous&Venous Performed By: #### C BC #### [address] [address] Monocytes/100 WBC (Bld) 7.10 % High 3.00-6.00 [facility] Comment on above: Order Comment: With differential. Is this specimen being sent to an external lab?->No Release to patient->Automatic 13821&Blood^\S\^Venous&Venous Performed By: #### C BC #### [address] [address] Neutrophils (Bld) [#/Vol] 3.4 10*3/uL Normal 2.0-7.2 [facility] Comment on above: Order Comment: With differential. Is this specimen being sent to an external lab?->No Release to patient->Automatic 72922&Blood^\S\^Venous&Venous Performed By: #### C BC #### [address] [address] Neutrophils/100 WBC (Bld) 48.0 % Normal 35.0-66.0 [facility] Comment on above: Order Comment: With differential. Is this specimen being sent to an external lab?->No Release to patient->Automatic 92407&Blood^\S\^Venous&Venous Performed By: #### C BC #### [address] [address] Nucleated RBC/100 WBC (Bld) [Ratio] 0.0 % Normal -1.0-0.0 [facility] Comment on above: Order Comment: With differential. Is this specimen being sent to an external lab?->No Release to patient->Automatic 16002&Blood^\S\^Venous&Venous Performed By: #### C BC #### [address] [id number] Platelet mean volume (Bld) [Entitic vol] 10.3 fL Normal [facility] Comment on above: Order Comment: With differential. Is this specimen being sent to an external lab?->No Release to patient->Automatic 74105&Blood^\S\^Venous&Venous Result Comment: MPV is platelet range and age dependent Performed By: #### C BC #### [address] [id number] Platelets (Bld) [#/Vol] 279 10*3/uL Normal 150-450 [facility] Comment on above: Order Comment: With differential. Is this specimen being sent to an external lab?->No Release to patient->Automatic 48528&Blood^\S\^Venous&Venous Performed By: #### C BC #### [address] [address] RBC 4.86 10E12/L Normal 4.00-4.90 [facility] Comment on above: Order Comment: With differential. Is this specimen being sent to an external lab?->No Release to patient->Automatic 72870&Blood^\S\^Venous&Venous Performed By: #### C BC #### [address] [id number] WBC (Bld) [#/Vol] 7.2 10*3/uL Normal 4.5-11.0 [facility] Comment on above: Order Comment: With differential. Is this specimen being sent to an external lab?->No Release to patient->Automatic 20078&Blood^\S\^Venous&Venous Performed By: #### C BC #### [address] [id number] Progress Noteon 07-19-2021 [employer] Authentication Interface Message Text Patient ID: Nestor [...] Blood 93 70 - 99 mg/dL Normal [facility] Microscopic observation Gram stain Nom (Vag fld)on 11-21-2019 Microscopic observation Smear Nom (Unsp spec) BACTERIAL VAGINOSIS RESULT: Stain results consistent with bacterial vaginosis. Abnormal [facility] Microscopic observation Smear Nom (Unsp spec) No Yeast observed [facility] Microscopic observation Smear Nom (Unsp spec) No Polymorphonuclear Leukocytes [facility] Specimen Request Swab [facility] Vital Signs Date Time Vital Sign Value Performing Clinician Facility 05-01-2025 09:37-0400 Body height 167.[address] Franklin Brown MD Work Phone: [facility] 05-01-2025 09:37-0400 Body mass index (BMI) [Ratio] 25.9 kg/m2 Dr. Franklin Brown MD Work Phone: [facility] 05-01-2025 09:37-0400 Body temperature 97.4 [degF] Dr. Frankiln Brown MD Work Phone: [facility] 05-01-2025 09:37-0400 Body weight 73.[address] Franklin Brown MD Work Phone: [facility] 05-01-2025 09:37-0400 Diastolic blood pressure 74 mm[Hg] Dr. Franklin Brown MD Work Phone: [facility] 05-01-2025 09:37-0400 Heart rate 113 /min Dr. Franklin Brown MD Work Phone: [facility] 05-01-2025 09:37-0400 Respiratory rate 16 /min Dr. Franklin Brown MD Work Phone: [facility] 05-01-2025 09:37-0400 SaO2% (BldA) [Mass fraction] 97 % Dr. Franklin Brown MD Work Phone: [facility] 05-01-2025 09:37-0400 Systolic blood pressure 110 mm[Hg] Dr. Franklin Brown MD Work Phone: [facility] 02-14-2025 10:22-0400 Body height 167.[address] Betsy Coleman DO Work Phone: [phone] [place] [address] 02-14-2025 10:22-0400 Body mass index (BMI) [Ratio] 25 kg/m2 Dr. Betsy Coleman DO Work Phone: [facility] 02-14-2025 10:22-0400 Body temperature 97.6 [degF] Dr. Betsy Coleman DO Work Phone: [facility] 02-14-2025 10:22-0400 Body weight 70.[address] Betsy Coleman DO Work Phone: [facility] 02-14-2025 10:22-0400 Diastolic blood pressure 62 mm[Hg] Dr. Betsy Coleman DO Work Phone: [facility] 02-14-2025 10:22-0400 Heart rate 97 /min Dr. Betsy Coleman DO Work Phone: [facility] 02-14-2025 10:22-0400 Respiratory rate 16 /min Dr. Betsy Coleman DO Work Phone: [facility] 02-14-2025 10:22-0400 SaO2% (BldA) [Mass fraction] 99 % Dr. Btesy Coleman DO Work Phone: [facility] 02-14-2025 10:22-0400 Systolic blood pressure 106 mm[Hg] Dr. Betsy Coleman DO Work Phone: [facility] 11-26-2024 15:25-0400 Body mass index (BMI) [Ratio] 25.02 kg/m2 Sandra Godoy MD Work Phone: [facility] 11-26-2024 15:25-0400 Body weight 70.31 kg Sandra Godoy MD Work Phone: [facility] 11-26-2024 15:25-0400 Diastolic blood pressure 70 mm[Hg] Sandra Godoy MD Work Phone: [facility] 11-26-2024 15:25-0400 Systolic blood pressure 120 mm[Hg] Sandra Godoy MD Work Phone: [facility] 11-15-2024 09:38-0400 Body height 167.[address] Betsy Coleman DO Work Phone: [facility] 11-15-2024 09:38-0400 Body mass index (BMI) [Ratio] 24.5 kg/m2 Dr. Betsy Coleman DO Work Phone: [facility] 11-15-2024 09:38-0400 Body temperature 97.9 [degF] Dr. Betsy Coleman DO Work Phone: [facility] 11-15-2024 09:38-0400 Body weight 69.[address] Betsy Coleman DO Work Phone: [facility] 11-15-2024 09:38-0400 Diastolic blood pressure 68 mm[Hg] Dr. Betsy Coleman DO Work Phone: [facility] 11-15-2024 09:38-0400 Heart rate 96 /min Dr. Betsy Coleman DO Work Phone: [facility] 11-15-2024 09:38-0400 Respiratory rate 16 /min Dr. Betsy Coleman DO Work Phone: [facility] 11-15-2024 09:38-0400 SaO2% (BldA) [Mass fraction] 98 % Dr. Betsy Coleman DO Work Phone: [facility] 11-15-2024 09:38-0400 Systolic blood pressure 102 mm[Hg] Dr. Betsy Coleman DO Work Phone: [facility] 08-27-2024 10:18-0500 Body height 167.6 cm Sandra Godoy MD Work Phone: [facility] 08-27-2024 10:18-0500 Body mass index (BMI) [Ratio] 25.34 kg/m2 Sandra Godoy MD Work Phone: [facility] 08-27-2024 10:18-0500 Body weight 71.22 kg Sandra Godoy MD Work Phone: [facility] 08-27-2024 10:18-0500 Diastolic blood pressure 64 mm[Hg] Sandra Godoy MD Work Phone: [facility] 08-27-2024 10:18-0500 Systolic blood pressure 110 mm[Hg] Sandra Godoy MD Work Phone: [facility] 03-20-2023 11:36-0400 Body height 167.6 cm Berenice Ovalle MD Work Phone: [facility] 03-20-2023 11:36-0400 Body weight 68.95 kg Berenice Ovalle MD Work Phone: [facility] 03-20-2023 11:36-0400 Diastolic blood pressure 62 mm[Hg] Berenice Ovalle MD Work Phone: [facility] 03-20-2023 11:36-0400 Systolic blood pressure 112 mm[Hg] Berenice Ovalle MD Work Phone: [facility] 02-13-2023 14:22-0400 Diastolic blood pressure 70 mm[Hg] Terra Herrera APRN.CNM Work Phone: [facility] 02-13-2023 14:22-0400 Systolic blood pressure 110 mm[Hg] Terra Herrera APRN.CNM Work Phone: [facility] 02-06-2023 22:09-0400 Body temperature 99.4 [degF] [facility] 02-06-2023 22:09-0400 SaO2% (BldA) [Mass fraction] 98 % [facility] 02-06-2023 22:08-0400 Heart rate 119 /min [facility] 02-06-2023 22:04-0400 Diastolic blood pressure 95 mm[Hg] [facility] 02-06-2023 22:04-0400 Systolic blood pressure 142 mm[Hg] [facility] 02-06-2023 20:26-0400 Body height 167.64 cm [facility] 02-06-2023 20:26-0400 Body mass index (BMI) [Ratio] 27.1 kg/m2 [facility] 02-06-2023 20:26-0400 Body weight 76.2 kg [facility] 02-06-2023 09:26-0400 Body weight 76.2 kg Terra Herrera APRN.CNMatty Work Phone: [facility] 02-06-2023 09:26-0400 Diastolic blood pressure 78 mm[Hg] Terra Herrera APRN.CNM Work Phone: [facility] 02-06-2023 09:26-0400 Systolic blood pressure 114 mm[Hg] Terra Herrera APRN.CNM Work Phone: [facility] 02-04-2023 05:38-0400 Body height 167.64 cm [facility] 02-04-2023 05:38-0400 Body mass index (BMI) [Ratio] 27.7 kg/m2 [facility] 02-04-2023 05:38-0400 Body weight 78.01 kg [facility] 02-04-2023 05:130400 Body temperature 97.8 [degF] [facility] 02-04-2023 05:130400 Diastolic blood pressure 73 mm[Hg] [facility] 02-04-2023 05:13-0400 Heart rate 75 /min [facility] 02-04-2023 05:130400 SaO2% (BldA) [Mass fraction] 99 % [facility] 02-04-2023 05:13-0400 Systolic blood pressure 126 mm[Hg] [facility] 01-30-2023 11:10-0400 Body weight 77.56 kg Terra Herrera APRN.CNM Work Phone: [facility] 01-30-2023 11:10-0400 Diastolic blood pressure 72 mm[Hg] Terra Herrera APRN.CNM Work Phone: [facility] 01-30-2023 11:10-0400 Systolic blood pressure 108 mm[Hg] Terra Herrera APRN.CNM Work Phone: [facility] 12-06-2022 10:49-0400 Body weight 69.85 kg Terra Herrera APRN.CNM Work Phone: [facility] 12-06-2022 10:49-0400 Diastolic blood pressure 68 mm[Hg] Terra Herrera APRN.CNM Work Phone: [facility] 12-06-2022 10:49-0400 Systolic blood pressure 112 mm[Hg] Terra Herrera APRN.CNM Work Phone: [facility] 11-01-2022 10:16-0400 Body weight 69.9 kg Partha Cornelius MD Work Phone: [facility] 11-01-2022 10:16-0400 Diastolic blood pressure 68 mm[Hg] Partha Cornelius MD Work Phone: [facility] 11-01-2022 10:16-0400 Systolic blood pressure 100 mm[Hg] Partha Cornelius MD Work Phone: [facility] 10-06-2022 09:45-0500 Body weight 71.22 kg Berenice Ovalle MD Work Phone: [facility] 10-06-2022 09:45-0500 Diastolic blood pressure 74 mm[Hg] Berenice Ovalle MD Work Phone: [facility] 10-06-2022 09:45-0500 Systolic blood pressure 118 mm[Hg] Berenice Ovalle MD Work Phone: [facility] 09-08-2022 10:29-0500 Body weight 73.03 kg Berenice Ovalle MD Work Phone: [facility] 09-08-2022 10:29-0500 Diastolic blood pressure 64 mm[Hg] Berenice Ovalle MD Work Phone: [facility] 09-08-2022 10:29-0500 Systolic blood pressure 112 mm[Hg] Berenice Ovalle MD Work Phone: [facility] 07-15-2022 09:27-0500 Body height 167.6 cm Bello Navarro MD Work Phone: [facility] 07-15-2022 09:27-0500 Body temperature 98.4 [degF] Bello Navarro MD Work Phone: [facility] 07-15-2022 09:27-0500 Body weight 72.58 kg Bello Navarro MD Work Phone: [facility] 07-15-2022 09:27-0500 Diastolic blood pressure 78 mm[Hg] Bello Navarro MD Work Phone: [facility] 07-15-2022 09:27-0500 Heart rate 113 /min Bello Navarro MD Work Phone: [facility] 07-15-2022 09:27-0500 SaO2% (BldA) [Mass fraction] 99 % Bello Navarro MD Work Phone: [facility] 07-15-2022 09:27-0500 Systolic blood pressure 130 mm[Hg] Bello Navarro MD Work Phone: [facility] 02-15-2022 09:30-0400 Body height 168.9 cm Dinorah Smith APRN.CREATIVE GURU Work Phone: [facility] 02-15-2022 09:30-0400 Body weight 73.39 kg Dinorah Smith APRN.CREATIVE GURU Work Phone: [facility] 02-15-2022 09:30-0400 Diastolic blood pressure 70 mm[Hg] Dinorah Smith APRN.CREATIVE GURU Work Phone: [facility] 02-15-2022 09:30-0400 Systolic blood pressure 108 mm[Hg] Dinorah Smith APRN.CREATIVE GURU Work Phone: [facility] 11-28-2021 08:43-0400 Body temperature 98.71 [degF] Jean Athy PA-C Work Phone: [facility] 11-28-2021 08:43-0400 Body weight 74.84 kg Jean Athy PA-C Work Phone: [facility] 11-28-2021 08:43-0400 Diastolic blood pressure 78 mm[Hg] Jean Athy PA-C Work Phone: [facility] 11-28-2021 08:43-0400 Heart rate 76 /min Jean Athy PA-C Work Phone: [facility] 11-28-2021 08:43-0400 Respiratory rate 18 /min Jean Athy PA-C Work Phone: [facility] 11-28-2021 08:43-0400 SaO2% (BldA) [Mass fraction] 98 % Jean Athy PA-C Work Phone: [facility] 11-28-2021 08:43-0400 Systolic blood pressure 116 mm[Hg] Jean Athy PA-C Work Phone: [facility] Encounters Encounter Date Encounter Type Care Provider Facility Start: 05-01-2025 Patient encounter procedure Terra PATEL -Laboratory Specimen Work Phone: Start: 05-01-2025 End: 05-01-2025 Patient encounter procedure Terra PATEL -[facility] Work Phone: Start: 05-01-2025 End: 05-01-[address] Franklin Brown MD Work Phone: -[facility] Start: 05-01-2025 End: 05-01-2025 ambulatory Franklin Brown Facility:[facility] Start: 03-18-2025 ambulatory SANDRA GODOY Facility:[facility] Start: 03-18-2025 End: 03-18-2025 Subsequent hospital visit by physician [facility] Work Phone: Radiology Comment on above: Solitary cyst of lef t breast [N60.02] Start: 02-14-2025 End: 02-14-[address] Franklin Brown MD -[facility] Work Phone: Start: 02-14-2025 End: 02-14-[address] Betsy Coleman DO Work Phone: -[facility] Start: 12-17-2024 End: 12-17-2024 Refill Sandra Godoy [...] Start: 11-26-2024 End: 11-26-2024 ambulatory SANDRA GODOY Facility:[facility] Start: 11-26-2024 End: 11-26-2024 Telephone encounter Sandra Godoy MD Work Phone: OB/Gynecology Comment on above: Appointment Start: 11-15-2024 End: 11-15-[address] Franklin Brown MD -[facility] Work Phone: Start: 11-15-2024 End: 11-15-[address] Betsy Coleman DO Work Phone: [facility] Work Phone: Start: 11-15-2024 End: 11-15-2024 ambulatory Franklin rBown Facility:[facility] Start: 09-19-2024 End: 09-19-2024 Refill Sandra Godoy MD Work Phone: OB/Gynecology Comment on above: Med Change Request Start: 09-18-2024 End: 09-18-2024 ambulatory SANDRA GODOY Facility:[facility] Start: 09-18-2024 End: 09-18-2024 Subsequent hospital visit by physician [facility] Work Phone: Radiology Comment on above: Mass of upper inner quadrant of left breast [N63.22] Start: 09-18-2024 End: 11-18-2024 Follow-up encounter Sandra Godoy MD Work Phone: OB/Gynecology Start: 08-27-2024 End: 08-27-2024 ambulatory SANDRA GODOY Facility:[facility] Start: 08-27-2024 End: 08-27-2024 Patient encounter procedure Sandra Godoy MD Work Phone: OB/Gynecology Comment on above: Encounter for gyneco logical examination (general) (routine) without abnormal findings (Primary Dx); Anxiety neurosis; Mass of upper inner quadrant of left breast Start: 08-27-2024 End: 08-27-2024 Patient encounter status Sandra Godoy MD Work Phone: [facility] Start: 03-20-2023 End: 03-20-2023 Patient encounter procedure Berenice Ovalle MD Work Phone: OB/Gynecology Comment on above: care and examination (Primary Dx); Encounter for screening for lipoid disorders Start: 02-13-2023 End: 02-13-2023 Patient encounter procedure Terra Herrera APRN.CNM Work Phone: OB/Gynecology Comment on above: Dizziness (Primary D x) Start: 02-07-2023 End: 02-07-2023 ambulatory UNKNOWN PROVIDER Facility:[facility] Start: 02-07-2023 End: 02-10-2023 Evaluation and management of inpatient ARELI SAN JUAN Facility:[facility] Start: 02-06-2023 End: 02-06-2023 ambulatory [facility] Work Phone: Start: 02-06-2023 End: 02-06-2023 Patient encounter procedure [facility] Work Phone: Start: 02-06-2023 End: 02-06-2023 Patient encounter procedure Terra Herrera APRN.CNM Work Phone: OB/Gynecology Comment on above: 29 weeks gestation o f (Primary Dx) Start: 02-04-2023 End: 02-04-2023 ambulatory [facility] Work Phone: Start: 02-04-2023 End: 02-04-2023 Patient encounter procedure [facility] Work Phone: Start: 02-02-2023 Telephone encounter Mary cameron MD Work Phone: OB/Gynecology Comment on above: OB Pain Start: 02-01-2023 Telephone encounter Terra najera APRN.CNM Work Phone: OB/Gynecology Comment on above: Orders Start: 02-01-2023 End: 02-01-2023 Nursing evaluation of patient and report Nurse Summer Counselor [facility] Work Phone: OB/Gynecology Comment [...] evaluation of patient and report [facility] Work Phone: OB/Gynecology Comment on above: Supervision of renetta l first , antepartum (Primary Dx); History of anxiety; Patient request for diagnostic testing Start: 09-08-2022 End: 02-06-2023 Patient requested procedure Nurse Pnob [facility] Work Phone: OB/Gynecology Start: 08-16-2022 Telephone encounter Berenice Ovalle MD Work Phone: OB/Gynecology Comment on above: Appointment Start: 07-15-2022 End: 07-15-2022 Patient encounter procedure Bello Navarro MD Work Phone: General Surgery Comment on above: Mass of upper inner quadrant of left breast (Primary Dx) Start: 02-15-2022 End: 02-15-2022 Patient encounter procedure Dinorah Smith APRN.CREATIVE GURU Work Phone: OB/Gynecology Comment on above: Encounter for gyneco logical examination without abnormal finding (Primary Dx); Surveillance for control, oral contraceptives Start: 02-15-2022 End: 02-15-2022 Patient encounter status Dinorah Smith APRN.CREATIVE GURU Work Phone: OB/Gynecology Start: 11-28-2021 End: 11-28-2021 Patient encounter procedure Jean Adams PA-C Work Phone: [facility] Comment on above: Other infective acut e otitis externa of left ear (Primary Dx) Start: 11-20-2019 Orders Only Dinorah LOERA RN.CREATIVE GURU Work Phone: OB/Gynecology Comment on above: Vaginal odor; Acute vaginitis Procedures Date Procedure Procedure Detail Performing Clinician Start: 05-01-2025 Urnls dip stick/tabl et reagent auto microscopy Dr. Franklin Brown MD Work Phone: Start: 05-01-[address] Joy Brown MD Work Phone: Start: 03-18-2025 Us breast uni real t sahra with image limited Sandra Godoy MD Work Phone: Start: 11-15-2024 Vitamin D, 25-hydrox y measurement Dr. Betsy Coleamn DO Work Phone: Comment on above: Vitamin D StatusDefi ciency: <20 ng/mL (50nmol/L)Insufficiency: 20-30 ng/mL (50-75 nmol/L)Sufficiency: 30-100 ng/mL (75-250 nmol/L)Toxicity: >100 ng/mL (>250 nmol/L) Start: 09-18-2024 Us breast uni real t sahra with image limited Sandra Godoy MD Work Phone: Start: 02-07-2023 Antibody screen ARELI CHINTAN TRIPLETT Comment on above: Order Comment: Speci men Type: BLOOD SPECIMEN Ordering Facility: [facility] Address: [address] [place], [place] [id number] Performed By: #### 5 [id number] #### [facility] CLIA [id number] [address] [place] [address] [place] Start: 02-06-2023 URINE OB DIP B/O Jessic a Herrera SUGAR REPROCESS OPERATOR HEAD.CNM Work Phone: Start: 02-04-2023 Urine culture Start: 01-30-2023 URINE OB DIP B/O Jessic a Herrera SUGAR REPROCESS OPERATOR HEAD.CNM Work Phone: Start: 12-06-2022 URINE OB DIP B/O Jessic a Herrera SUGAR REPROCESS OPERATOR HEAD.CNM Work Phone: Start: 12-06-2022 Us preg uterus after 1st trimest 08/07 gestation Berenice Ovalle MD Work Phone: Start: 11-01-2022 URINE OB DIP B/O Partha Cornelius MD Work Phone: Start: 10-06-2022 URINE OB DIP B/O Bharath Ovalle MD Work Phone: Start: 11-20-2019 Smr prim src gram/gi emsa stain bct fungi/cell Dinorah Smith APRN.CREATIVE GURU Work Phone: Start: 03-17-2017 Adult depression scr eening assessment Jean Adams PA-C Work Phone: Plan of Treatment Date Care Activity Detail Author Start: 02-01-2033 Urine microalbumin profile [facility] Start: 09-08-2025 PAP TESTING PAP TESTING [facility] Start: 09-08-2025 Screening for malign ant neoplasm of cervix Cervical Cancer Screening [facility] Start: 08-28-2025 End: 08-28-2025 Patient encounter procedure 08/28/2025 11:20 AM EST Office Visit OB/Gynecology [address] [place] [id number] Sandra Vizcaino MD [address] [place] [phone] ANNUAL OB/Gynecology Comment on above: ANNUAL Start: 05-01-2025 [facility] Start: 04-07-2025 Influenza vaccination [facility] Start: 03-18-2025 End: 10-18-2025 US Breast - left limited US BREAST LTD LEFT Radiology Routine Solitary cyst of left breast Expected: 03/18/2025 (Approximate), Expires: 10/18/2025 [facility] Work Phone: Comment on above: Expected: 03/18/2025 (Approximate), Expires: 10/18/2025 Start: 03-18-2025 End: 03-18-2025 Patient encounter procedure 03/18/2025 8:30 AM EDT Appointment Radiology [address] [place] [phone] Solitary cyst of left breast [N60.02] Radiology Comment on above: Solitary cyst of lef t breast [N60.02] Start: 02-14-2025 Vitamin D, 25-hydrox y measurement [facility] Start: 09-18-2024 End: 09-18-2024 Patient encounter procedure 09/18/2024 10:30 AM EST Appointment Radiology [address] [place] [address] Mass of upper inner quadrant of left breast [N63.22] Radiology Comment on above: Mass of upper inner quadrant of left breast [N63.22] Start: 04-07-2024 Covid-19 Vaccine ( season) Covid-19 Vaccine () [facility] Start: 04-07-2024 Influenza vaccination Influenza Vacc ine (#1) [facility] Start: 09-08-2023 CHLAMYDIA SCREENING (1824) CHLAMYDIA SCREENING (24) [facility] Start: 09-08-2023 GC (GONORRHEA) SCREENING () GC (GONORRHEA) SCREENING () [facility] Start: 09-08-2023 Screening for Chlamy tere trachomatis Chlamydia Screening () [facility] Start: 05-11-2023 Urine microalbumin profile DTAP,TDAP,TD (7 - Td or Tdap) [facility] Start: 04-07-2023 Influenza vaccination INFLUENZA (#1) [facility] Start: 03-20-2023 End: 05-20-2023 LIPID PANEL, NONFASTING LIPID PANEL, NONFASTING Lab Routine Encounter for screening for lipoid disorders Expected: 03/20/2023, Expires: 05/20/2023 [facility] Work Phone: Comment on above: Expected: 03/20/2023 , Expires: 05/20/2023 Start: 02-06-2023 Nonstress test [facility] Start: 02-06-2023 Obstetric monitoring [facility] Start: 02-06-2023 Vital signs measurements [facility] Start: 02-06-2023 [facility] Start: 02-04-2023 Bacteria identified in Urine by Culture Urine Culture [facility] Start: 02-04-2023 Nonstress test [facility] Start: 02-04-2023 End: 02-04-2023 [facility] Start: 02-04-2023 Obstetric monitoring [facility] Start: 02-04-2023 Vital signs measurements [facility] Start: 02-04-2023 Patient discharge [facility] Start: 01-30-2023 End: 04-01-2023 GEST GLUC JENNA, 3-HR, 100 GM, FASTING GEST GLUC JENNA, 3-HR, 100 GM, FASTING Lab Routine Abnormal glucose in , antepartum Expected: 01/30/2023, Expires: 04/01/2023 [facility] Work Phone: Comment on above: Expected: 01/30/2023 , Expires: 04/01/2023 Start: 01-24-2023 End: 03-26-2023 TYPE + SCREEN TYPE + SCREEN Blood Bank Routine Rh negative state in antepartum period, first trimester Expected: 01/24/2023, Expires: 03/26/2023 [facility] Work Phone: Comment on above: Expected: 01/24/2023 , Expires: 03/26/2023 Start: 11-01-2022 End: 01-01-[address] [facility] Work Phone: Comment on above: Expected: 11/01/2022 , Expires: 01/01/2023 Start: 10-06-2022 End: 12-06-2022 Chromosome 21 trisomy [Presence] in Blood or Tissue by Cytogenetics [facility] Work Phone: Comment on above: Expected: 10/06/2022 , Expires: 12/06/2022 Start: 10-06-2022 End: 12-06-2022 CYSTIC FIBROSIS PATHOGENIC VARIANT ANALYSIS [facility] Work Phone: Comment on above: Expected: 10/06/2022 , Expires: 12/06/2022 Start: 10-06-2022 End: 10-07-2023 OBSTETRIC ULTRASOUND WHI OBSTETRIC ULTRASOUND WHI Anc Imaging Routine 11 weeks gestation of Patient request for diagnostic testing Encounter for supervision of normal first in first trimester Expected: 10/06/2022, Expires: 10/07/2023 [facility] Work Phone: Comment on above: Expected: 10/06/2022 , Expires: 10/07/2023 Start: 09-08-2022 End: 11-08-2022 CBC panel - Blood by Automated count CBC Lab Routine Encounter for care in first trimester of first Expected: 09/08/2022, Expires: 11/08/2022 [facility] Work Phone: Comment on above: Expected: 09/08/2022 , Expires: 11/08/2022 Start: 09-08-2022 End: 11-08-2022 Hepatitis B virus surface Ag [Presence] in Serum HEP B SURF AG SCRN Lab Routine Encounter for care in first trimester of first Expected: 09/08/2022, Expires: 11/08/2022 [facility] Work Phone: Comment on above: Expected: 09/08/2022 , Expires: 11/08/2022 Start: 09-08-2022 End: 11-08-2022 Hepatitis C virus Ab [Presence] in Serum HEP C AB IA W/CONF SCRN Lab Routine Encounter for care in first trimester of first Expected: 09/08/2022, Expires: 11/08/2022 [facility] Work Phone: Comment on above: Expected: 09/08/2022 , Expires: 11/08/2022 Start: 09-08-2022 End: 11-08-2022 HIV 1+2 Ab [Presence] in Serum or Plasma by Immunoassay HIV 1 2 COMBO(AG/AB),WITH REFLEX TO DIFFERENTIATION Lab Routine Encounter for care in first trimester of first Expected: 09/08/2022, Expires: 11/08/2022 [facility] Work Phone: Comment on above: Expected: 09/08/2022 , Expires: 11/08/2022 Start: 09-08-2022 End: 11-08-2022 RUBELLA IGG AB RUBELLA IGG AB Lab Routine Encounter for care in first trimester of first Expected: 09/08/2022, Expires: 11/08/2022 [facility] Work Phone: Comment on above: Expected: 09/08/2022 , Expires: 11/08/2022 Start: 09-08-2022 End: 11-08-2022 SYPHILIS TOTAL W/REFLEX SYPHILIS TOTAL W/REFLEX Lab Routine Encounter for care in first trimester of first Expected: 09/08/2022, Expires: 11/08/2022 [facility] Work Phone: Comment on above: Expected: 09/08/2022 , Expires: 11/08/2022 Start: 09-08-2022 End: 11-08-2022 TYPE + SCREEN TYPE + SCREEN Blood Bank Routine Encounter for care in first trimester of first Expected: 09/08/2022, Expires: 11/08/2022 [facility] Work Phone: Comment on above: Expected: 09/08/2022 , Expires: 11/08/2022 Start: 08-07-2022 DEPRESSION ASSESSMENT DEPRESSION ASS [facility] Start: 2022 PAP TESTING PAP TESTING [facility] Start: 04-07-2022 Influenza vaccination [facility] Start: 10-16-2021 COVID-19 VACCINE (3 - Booster for Pfizer series) COVID-19 VACCINE (3 - Booster for Pfizer series) [facility] Start: 08-07-2021 [facility] Start: 07-13-2021 COVID-19 VACCINE (3 - Booster for Pfizer series) COVID-19 VACCINE (3 - Booster for Pfizer series) [facility] Start: 07-13-2021 COVID-19 VACCINE (3 - Pfizer series) COVID-19 VACCINE (3 - Pfizer series) [facility] Start: 11-19-2020 CHLAMYDIA SCREENING (18-24) CHLAMYDIA SCREENING (18-24) [facility] Start: 11-19-2020 GC (GONORRHEA) SCREENING (18-24) GC (GONORRHEA) SCREENING (18-24) [facility] Start: 2019 Anxiety Screening Anxiety Screening [facility] Start: 2019 Depression Screening Depression Scre ening [facility] Start: 2019 HEPATITIS C SCREENING HEPATITIS C SC REENING [facility] Start: 2019 HIV SCREENING HIV SCREENING [facility] Start: 03-17-2018 Adult depression screening assessment DEPRESSION SCREENING [facility] Start: 2015 PEDS TO ADULT TRANSITION ANNUAL ASSESSMENT PEDS TO ADULT TRANSITION ANNUAL ASSESSMENT [facility] Start: 2013 PEDS TO ADULT TRANSITION INITIAL DISCUSSION PEDS TO ADULT TRANSITION INITIAL DISCUSSION [facility] Start: 2011 MENINGOCOCCAL B: Consider based on risk (1 of 2 - Risk Bexsero 2-dose series) MENINGOCOCCAL B: Consider based on risk (1 of 2 - Risk Bexsero 2-dose series) [facility] Bacteria identified in Urine by Culture URINE CULTURE Microbiology Routine Encounter for care in first trimester of first 09/08/2022 11:[address] [facility] Work Phone: Bacteria identified in Urine by Culture URINE CULTURE Microbiology Routine 29 weeks gestation of 02/06/2023 10:[address] [facility] Work Phone: CBC W Auto Different ial panel - Blood [facility] Chlamydia trachomatis+Neisseria gonorrhoeae DNA [Presence] in Unspecified specimen by REGGIE with probe detection GC/CHLAMYDIA DNA DET Lab Routine Encounter for care in first trimester of first 09/08/2022 11:[address] [facility] Work Phone: Comprehensive metabo lic 2000 panel - Serum or Plasma [facility] Insertion intrauteri ne device iud INSERT INTRAUTERINE DEVICE Procedures Routine Encounter for initial prescription of intrauterine contraceptive device (IUD) Ordered: 11/26/2024 [facility] Work Phone: Comment on above: Ordered: 11/26/2024 Insertion intrauteri ne device iud INSERT INTRAUTERINE DEVICE Procedures Routine Encounter for initial prescription of intrauterine contraceptive device (IUD) Ordered: 11/27/2024 [facility] Work Phone: Comment on above: Ordered: 11/27/2024 PAP FLUID CERVICAL SCREENING PAP FLUID CERVICAL SCREENING Lab Routine Encounter for care in first trimester of first 09/08/2022 11:11 AM [facility] Work Phone: Patient Education Kick Counts ED False Labor OB Triage: Return to Hospital or Notify Physician if you Experience: [facility] Work Phone: Patient referral [facility] Work Phone: T4 free measurement [facility] Thyroid stimulating hormone measurement [facility] Urinalysis complete panel - Urine [facility] End: 09-26-2025 US Breast - left limited US BREAST LTD LEFT Radiology Routine Mass of upper inner quadrant of left breast 1 Occurrences starting 08/27/2024 until 09/26/2025 [facility] Work Phone: Comment on above: 1 Occurrences starti ng 08/27/2024 until 09/26/2025 End: 08-14-2023 Us breast uni real time with image limited US BREAST LTD LT Radiology Routine Mass of upper inner quadrant of left breast 1 Occurrences starting 07/15/2022 until 08/14/2023 [facility] Work Phone: Comment on above: 1 Occurrences starti ng 07/15/2022 until 08/14/2023 [facility] [place] [facility] Immunizations Immunization Date Immunization Notes Care Provider Paulino mccann 02-07-2023 RHO(D) immune globul in- IV or IM Terra Herrera SUGAR REPROCESS OPERATOR HEAD.CNM Work Phone: [facility] 02-01-2023 RHO(D) immune globul in- IV or IM Terra Herrera SUGAR REPROCESS OPERATOR HEAD.CNM Work Phone: [facility] 02-01-2023 tetanus toxoid, redu miguelina diphtheria toxoid, and acellular pertussis vaccine, adsorbed Terra Herrera SUGAR REPROCESS OPERATOR HEAD.CNM Work Phone: [facility] 01-30-2023 tetanus toxoid, redu miguelina diphtheria toxoid, and acellular pertussis vaccine, adsorbed [facility] 05-13-2022 Influenza, injectabl e, Madin Yarelis Canine Kidney, quadrivalent with preservative Nurse Wstr Work Phone: [facility] Work Phone: 05-13-2022 Influenza, injectabl e, Madin Yarelis Canine Kidney, preservative free, quadrivalent Nurse Wstr Work Phone: [facility] Work Phone: 05-13-2022 influenza virus vacc ine, unspecified formulation Sandra Godoy MD Work Phone: [facility] 04-16-2021 COVID-19 vaccine, ag e 12+ yr ([employer] - PURPLE TOP) Jean Adams PA-C Work Phone: [facility] Work Phone: 11-20-2020 meningococcal B vacc ine, recombinant, OMV, adjuvanted Nurse Wstr Work Phone: [facility] Work Phone: 04-16-2019 hepatitis A vaccine, pediatric/adolescent dosage, 2 dose schedule Nurse Wstr Work Phone: [facility] Work Phone: 04-16-2019 meningococcal B vacc ine, recombinant, OMV, adjuvanted Nurse Wstr Work Phone: [facility] Work Phone: 03-27-2018 hepatitis A vaccine, pediatric/adolescent dosage, 2 dose schedule Nurse Wstr Work Phone: [facility] Work Phone: 03-27-2018 meningococcal polysaccharide (groups A, C, Y and W-135) diphtheria toxoid conjugate vaccine (MCV4P) Nurse Wstr Work Phone: [facility] Work Phone: 03-17-2017 Human Papillomavirus 9-valent vaccine Jean Adams PA-C Work Phone: [facility] 03-15-2016 Human Papillomavirus 9-valent vaccine Jean Adams PA-C Work Phone: [facility] Work Phone: 08-27-2014 influenza, live, intranasal, quadrivalent Jean Adams PA-C Work Phone: [facility] 02-28-2014 meningococcal polysaccharide (groups A, C, Y and W-135) diphtheria toxoid conjugate vaccine (MCV4P) Jean Adams PA-C Work Phone: [facility] 02-28-2014 varicella virus vaccine Jean PHILLIPS-C Work Phone: [facility] 05-11-2013 human papilloma viru s vaccine, quadrivalent Jean PHILLIPS-C Work Phone: [facility] 05-11-2013 influenza virus vacc ine, live, attenuated, for intranasal use Jean Adams PA-C Work Phone: [facility] 05-11-2013 tetanus toxoid, redu miguelina diphtheria toxoid, and acellular pertussis vaccine, adsorbed Jean Adams PA-C Work Phone: [facility] 05-05-2012 influenza virus vacc ine, live, attenuated, for intranasal use Jean Adams PA-C Work Phone: [facility] 06-23-2011 influenza virus vacc ine, live, attenuated, for intranasal use Jean Adams PA-C Work Phone: [facility] 06-11-2010 influenza virus vacc ine, live, attenuated, for intranasal use Jean Adams PA-C Work Phone: [facility] 10-03-2005 diphtheria, tetanus toxoids and acellular pertussis vaccine Jean PHILLIPS-C Work Phone: [facility] Work Phone: 10-03-2005 measles, mumps and rubella virus vaccine Jean PHILLIPS-C Work Phone: [facility] Work Phone: 10-03-2005 poliovirus vaccine, inactivated Jean PHILLIPS-adicate timeads Work Phone: [facility] Work Phone: 05-27-2003 pneumococcal conjuga te vaccine, 13 valent Jean Adams PA-C Work Phone: [facility] Work Phone: 10-10-2002 diphtheria, tetanus toxoids and acellular pertussis vaccine Jean Adams PA-C Work Phone: [facility] Work Phone: 10-10-2002 diphtheria, tetanus toxoids and acellular pertussis vaccine, unspecified formulation Nurse [facility] Work Phone: [facility] Work Phone: 10-10-2002 varicella virus vaccine Jean Adams PA-C Work Phone: [facility] Work Phone: 05-27-2002 haemophilus influenz ae type b conjugate and Hepatitis B vaccine Nurse tr Work Phone: [facility] Work Phone: 05-27-2002 haemophilus influenz ae type b vaccine, HbOC conjugate Jean PHILLIPS-C Work Phone: [facility] Work Phone: 05-27-2002 haemophilus influenz ae type b vaccine, PRP-T conjugate Nurse tr Work Phone: [facility] Work Phone: 05-27-2002 hepatitis B vaccine, pediatric or pediatric/adolescent dosage Jean ARNOLDC Work Phone: [facility] Work Phone: 05-27-2002 measles, mumps and rubella virus vaccine Jean ARNOLDC Work Phone: [facility] Work Phone: 05-27-2002 poliovirus vaccine, inactivated Jean ARNOLDC Work Phone: [facility] Work Phone: 01-02-2002 diphtheria, tetanus toxoids and acellular pertussis vaccine Jean ARNOLDC Work Phone: [facility] Work Phone: 01-02-2002 haemophilus influenz ae type b vaccine, HbOC conjugate Jean PHILLIPS-C Work Phone: [facility] Work Phone: 01-02-2002 haemophilus influenz ae type b vaccine, PRP-T conjugate Nurse tr Work Phone: [facility] Work Phone: 01-02-2002 pneumococcal conjuga te vaccine, 13 valent Jean Césary PA-C Work Phone: [facility] Work Phone: 2001 diphtheria, tetanus toxoids and acellular pertussis vaccine Jean Athy PA-C Work Phone: [facility] Work Phone: 2001 haemophilus influenz ae type b vaccine, HbOC conjugate Jean Athy PA-C Work Phone: [facility] Work Phone: 2001 haemophilus influenz ae type b vaccine, PRP-T conjugate Nurse Wstr Work Phone: [facility] Work Phone: 2001 pneumococcal conjuga te vaccine, 13 valent Jean Césary PA-C Work Phone: [facility] Work Phone: 2001 poliovirus vaccine, inactivated Jean Adams PA-C Work Phone: [facility] Work Phone: 2001 diphtheria, tetanus toxoids and acellular pertussis vaccine Jean Athy PA-C Work Phone: [facility] Work Phone: 2001 haemophilus influenz ae type b vaccine, HbOC conjugate Jean Lindseyy PA-C Work Phone: [facility] Work Phone: 2001 haemophilus influenz ae type b vaccine, PRP-T conjugate Nurse Wstr Work Phone: [facility] Work Phone: 2001 hepatitis B vaccine, pediatric or pediatric/adolescent dosage Jean Athy PA-C Work Phone: [facility] Work Phone: 2001 pneumococcal conjuga te vaccine, 13 valent Jean Césary PA-C Work Phone: [facility] Work Phone: 2001 poliovirus vaccine, inactivated Jean Adams PA-C Work Phone: [facility] Work Phone: 2001 diphtheria, tetanus toxoids and acellular pertussis vaccine, unspecified formulation Nurse Wstr Work Phone: [facility] Work Phone: 2001 haemophilus influenz ae type b conjugate and Hepatitis B vaccine Nurse Wstr Work Phone: [facility] Work Phone: 2001 pneumococcal conjuga te vaccine, 7 valent Nurse Wstr Work Phone: [facility] Work Phone: 2001 hepatitis B vaccine, pediatric or pediatric/adolescent dosage Jean Adams PA-C Work Phone: [facility] Work Phone: Payers Date Payer Category Payer Self-pay [id number] 2024 Unknown [id number] 2022 Medicaid [id number] 2022 Private Health Insurance [id number] 2019 Unknown [employer] BLUE CARD PPO OOS [id number] 2019-Present [phone] [facility] [id number] [place] [address] PPO [id number] 2019 Unknown [id number] 2009 Unknown [id number] 2001 Unknown [id number] 32 Private Health Insurance [id number] Unknown [id number] Unknown [id number] Unknown [id number] 62 Unknown [id number] 62 Unknown [id number] 62 Unknown [id number] 62 Unknown [id number] 62 Social History Date Type Detail Facility Start: 05-07-2021 End: 07-15-2022 Tobacco smoking status NHIS Never smoked tobacco [facility] Start: 11-28-2021 End: 08-27-2024 Alcohol intake Lifetime non-drinker (finding) [facility] Start: 01-28-2021 History SDOH Alcohol Frequency 1 [facility] Start: 2001 Sex Assigned At Female [facility] Start: 10-21-2019 End: 11-28-2021 Exposure to SARS-CoV-2 (event) Not sure [facility] Start: 07-15-2022 Tobacco use and exposure Smokeless tobacco non-user [facility] Start: 09-08-2022 Education 21 [facility] Start: 08-01-2022 [facility] Start: 05-07-2021 Tobacco smoking stat us IAIS Unknown if ever smoked [facility] Start: 12-14-2020 Non-smoker [facility] Start: 11-20-2019 Alcohol intake Not Asked [facility] Start: 02-13-2023 End: 11-26-2024 History of Social function [facility] Start: 02-13-2023 End: 11-26-2024 Tobacco use panel [facility] Work Phone: Start: 07-08-2012 National Score (1-10 0), lower number is lower risk 48 [facility] Start: 11-09-2020 Gender identity Identifies as female gender (finding) [facility] Start: 11-09-2020 Sexual orientation Heterosexual (fin ding) [facility] Start: 11-21-2024 Sex Female (finding) [facility] [facility] Goals Date Patient Goal Desired Activity /State Personal health goal Functional Status Date Assessment Result Facility 02-10-2023 Are you deaf, or do you have serious difficulty hearing No 02/10/2023 2:30 PM EDT Sofia Royal RN No [facility] 02-10-2023 Are you blind, or do you have serious difficulty seeing, even when wearing glasses No 02/10/2023 2:30 PM EDSofia Chavira RN No [facility] 02-10-2023 Do you have serious difficulty walking or climbing stairs No 02/10/2023 2:30 PM EDT Sofia Royal RN No [facility] 02-10-2023 Do you have difficul ty dressing or bathing No 02/10/2023 2:30 PM EDT Sofia Royal, CLINT No [facility] 02-10-2023 Because of a physica l, mental, or emotional condition, do you have difficulty doing errands alone such as visiting a physician's office or shopping No 02/10/2023 2:30 PM EDSofia Chavira RN No [facility] Mental Status Date Assessment Result Facility 02-10-2023 Because of a physica l, mental, or emotional condition, do you have serious difficulty concentrating, remembering, or making decisions No 02/10/2023 2:30 PM Sofia Rivera RN No [facility] Clinical Notes 05-01-2014 to 05-01-2025 Vonnie Bond RDMS - 03/18/2025 8:30 AM EDT Note Date & Type Note Facility 05-01-2025 Progress note [facility] 03-18-2025 History of Present illness Narrative Radiology Service Progress Note PATIENT [...] PATIENT PRESENTS WITH AN IMPLANTABLE OR ATTACHED WATCH GUARD GATE: No RADIOLOGY DEPARTMENT: Ultrasound PERIPHERAL IV DATA: Not applicable SIGNED BY: Vonnie Bodn RDMS March 18, 2025 9:16 AM documented in this encounter [facility] 03-18-2025 Note HNO ID: [id number] Author: VONNIE BOND RDMS Service: ? Author Type: Intervention Specialist Type: Progress Notes Filed: 03/18/2025 09:16 Note [...] PATIENT PRESENTS WITH AN IMPLANTABLE OR ATTACHED WATCH GUARD GATE: No RADIOLOGY DEPARTMENT: Ultrasound PERIPHERAL IV DATA: Not applicable SIGNED BY: Vonnie Bond RDMS March 18, 2025 9:16 AM [facility] 02-14-2025 Evaluation note Diagnosis Onset Date Resolution Fatigue acute February 14 10:14am Generalized anxiety disorder acute February 14, 2025 10:14am Vitamin D insufficiency acute J gino 2024 10:14am UTI (urinary tract infection) acute May 01, 2025 9:28am [facility] Work Phone: [phone]) [phone] Telephone encounter Note* Telephone Encounter - Sandra Vizcaino MD - 11/27/2024 11:05 AM EDT Referral placed. No need for cytotec [facility]04-23-2025 Miscellaneous Notes* Telephone Encounter - Sandra Vizcaino MD - 11/27/2024 11:05 AM EDT Referral placed. No need for cytotec * Telephone Encounter - April Schmidt RN - 11/27/2024 9:26 AM EDT Linked order to appointment. Dr Godoy patient had one previous delivery that was a C Section. Doyou want Cytotec ordered? documented in this encounterTr[facility] Telephone encounter Note * Telephone Encounter - April Schmidt RN - 11/27/2024 9:26 AM EDT Linked order to appointment. Dr Godoy patient had one previous delivery that was a C Section. Doyou want Cytotec ordered? [facility]04-22-2025 Instructions* Patient Instructions* Sandra Vizcaino MD - 11/26/2024 4:04 PM EDT - Keep using condoms until your new IUD is placed. - Review the pamphlets on IUD options (Mirena and Paragard) and message us via Puuilo with your choice. - Your IUD insertion [...] questions after your visit. documented in this encounterTr[facility]04-22-2025 NoteHNO ID: [id number] Author: SANDRA VIZCAINO MD Service: ? Author Type: Physician Type: Progress Notes Filed: 11/26/2024 16:04 Note Text: Pi/Senior Research Associate offered: Patient declines. Subjective The patient is [...] pills. - Previously prescribed spironolactone by a technical document writer for cystic acne but did not start [...] history and its implications. Attestation Recording using Copanion software for draft documentation of the visit was discussed with the patient/authorized operations support representative; all questions welcomed and answered. Patient/authorized operations support representative agreed to proceed Medical Decision Making: Problems: Low: Acute, uncomplicated illness or injury Moderate: New problem with uncertain prognosis Risk: Low: Low risk from testing/treatment (more content not included)...[facility]04-22-2025 History of Present illness Narrative* Sandra Vizcaino MD - 11/26/2024 3:23 PM EDT Pi/Senior Research Associate offered: Patient declines. Subjective The patient is [...] pills. - Previously prescribed spironolactone by a technical document writer for cystic acne but did not start [...] history and its implications. Attestation Recording using Copanion software for draft documentation of the visit was discussed with the patient/authorized operations support representative; all questions welcomed and answered. Patient/authorized operations support representative agreed to proceed Medical Decision Making: Problems: Low: Acute, uncomplicated illness or injury Moderate: New problem with uncertain prognosis Risk: Low: Low risk from testing/treatment Moderate: Drug management Medical Decision Making Level: 4 - Moderate Sandra Meeks MD documented in this encounterTr[facility]04-[facility]-2025 Telephone encounter Note * Telephone Encounter - Sabrina Ayala RN - 11/26/2024 8:29 AM EDT Patient called back. Would like the 3:30 with DM. Sabrina Ayala RN [facility]04-22-2025 Miscellaneous Notes* Telephone Encounter - Sabrina Ayala RN - 11/26/2024 8:29 AM EDT Patient called back. Would like the 3:30 with BENNY. Sabrina Ayala RN * Telephone Encounter - Sabrina Ayala RN - 11/26/2024 8:02 AM EDT Left message for patient to call office. Please ask patient if she is okay with seeing either AG @ 11:00 am or DM could see her at 3:30 pm. Sabrina Ayala RN documented in this encounterTr[facility]04-[facility]-2025 Telephone encounter Note * Telephone Encounter - Sabrina Ayala RN - 11/26/2024 8:02 AM EDT Left message for patient to call office. Please ask patient if she is okay with seeing either AG @ 11:00 am or DM could see her at 3:30 pm. Sabrina Ayala RN [facility]04-11-2025 Evaluation note* Diagnosis Onset Date Resolution Status Admit Date Encounter to [facility] November 15, 2024 9:23am Generalized anxiety disorder acute November 15, 2024 9:23am [facility] Work Phone: [phone]) 211-714402-13-2025 Telephone encounter Note* Telephone Encounter - Rosa Ferrera RN - 09/19/2024 9:43 AM EST Last OV 08/27/24. Request for 90 day supply. Requested Prescriptions Pending Prescriptions Disp Refills escitalopram oxalate (LEXAPRO) 20 mg tablet [Pharmacy Med Name: ESCITALOPRAM 20 MG TABLET] 90 tablet 1 Sig: TAKE 1 TABLET BY MOUTH EVERY DAY Rosa Ferrera RN [facility]02-13-2025 Miscellaneous Notes* Telephone Encounter - Rosa Ferrera RN - 09/19/2024 9:43 AM EST Last OV 08/27/24. Request for 90 day supply. Requested Prescriptions Pending Prescriptions Disp Refills escitalopram oxalate (LEXAPRO) 20 mg tablet [Pharmacy Med Name: ESCITALOPRAM 20 MG TABLET] 90 tablet 1 Sig: TAKE 1 TABLET BY MOUTH EVERY DAY Rosa Ferrera RN documented in this encounterTr[facility]02-12-2025 History of Present illness Narrative* Vonnie Bond [...] PATIENT PRESENTS WITH AN IMPLANTABLE OR ATTACHED WATCH GUARD GATE: No RADIOLOGY DEPARTMENT: Ultrasound PERIPHERAL IV DATA: Not applicable SIGNED BY: Vonnie Bond RDMS September 18, 2024 2:59 PM documented in this encounterTr[facility]02-12-2025 NoteHNO ID: [id number] Author: VONNIE BOND RDMS Service: ? Author Type: Intervention Specialist Type: Progress Notes Filed: 09/18/2024 15:00 Note [...] PATIENT PRESENTS WITH AN IMPLANTABLE OR ATTACHED WATCH GUARD GATE: No RADIOLOGY DEPARTMENT: Ultrasound PERIPHERAL IV DATA: Not applicable SIGNED BY: Vonnie Bond RDMS September 18, 2024 2:59 [facility] Note* Addendum Note - Sandra Vizcaino MD - 08/27/2024 10:54 AM ESTAddended by: SANDRA GODOY on: 08/27/2024 10:54 AM Modules accepted: Orders [facility]01-21-2025 Miscellaneous Notes* Addendum Note - Sandra Vizcaino MD - 08/27/2024 10:54 AM ESTAddended by: SANDRA GODOY on: 08/27/2024 10:54 AM Modules accepted: Orders documented in this encounterTr[facility]01-21-2025 NoteHNO ID: [id number] Author: SANDRA VIZCAINO MD Service: ? Author Type: Physician Type: Progress Notes Filed: 08/27/2024 10:54 Note Text: Pi/Senior Research Associate offered: Patient declinesChuyita Abrams is a 24 year old who presents for an annual gynecologic exam. H/o anxiety stopped medications. Was seeing counselor recommend restarting anxiety medication. Menses: every 28 days- 5-6 days total Sexually active: Yes HPV vaccine: Yes HPV:N/A Last pap smear: 2022 History of abnormal pap: No Last mammogram: re us normal Sexually active: Yes History of STDS: None Pain with intercourse: No Postcoital bleeding: No OB History T0 L1 SAB0 IAB0 Ectopic0 Multiple0 Live Births1 Rn Icu History LMP: 08/17/2024 (Exact Date), Unknown Age at Menarche: Age at First : Age at Menopause: Rn Icu History Comments: Sexual Activity: Yes; Male Contraception: [...] discussed with the Patient or Patient's Authorized Service Developer. As applicable, any other physician, advance practice provider, medical student, or other health professional student that will be observing or involved in the sensitive examination for educational or training purposes was discussed with the Patient or Authorized Service Developer. The Patient or Authorized Service Developer has agreed to proceed with the sensitive [...] external genitalia normal, normal Bartholin's glands, urethra, [employer]'s glands, no vulvar lesions, no cervical lesions, [...] year or sooner as needed Sandra Meeks [facility]01-21-2025 History of Present illness Narrative* Sandra Vizcaino MD - 08/27/2024 10:16 AM EST Pi/Senior Research Associate offered: Patient declines. Nestor is a 24 [...] SAB0 IAB0 Ectopic0 Multiple0 Live Births1 Rn Icu History LMP: 08/17/2024 (Exact Date), Unknown Age at Menarche: Age at First : Age at Menopause: Rn Icu History Comments: Sexual Activity: Yes; Male Contraception: [...] discussed with the Patient or Patient's Authorized Service Developer. As applicable, any other physician, advance practice provider, medical student, or other health professional student that will be observing or involved in the sensitive examination for educational or training purposes was discussed with the Patient or Authorized Service Developer. The Patient or Authorized Service Developer has agreed to proceed with the sensitive [...] external genitalia normal, normal Bartholin's glands, urethra, [employer]'s glands, no vulvar lesions, no cervical lesions, [...] needed Sandra Meeks MD documented in this encounterTr[facility]08-14-2023 History of Present illness Narrative* Berenice Ovalle MD - 03/20/2023 11:30 AM EDT VISIT Nestor Lopez is a 22 year old year old here for visit. Delivery Summary: c-s ROS/ Recovery: Feeding: pumping for still in NICU problems: None for her Menses since delivery: n/a Menstrual pattern prior to : Regular periods [place] since delivery: Not resumed Depression: denies symptoms [...] external genitalia normal, normal Bartholin's glands, urethra, [employer]'s glands, no vulvar lesions, no cervical lesions, [...] checked Berenice Ovalle MD documented in this encounterTr[facility]07-10-2023 Instructions* Patient Instructions* Terra Herrera APRN.CN - 02/13/2023 2:19 PM EDT BP 140/90 please call the office. Send a BP log on 02/17/23 If 160/110 will need readmitted. Here are some links for wonderful Providers here in the community and surrounding areas. Do not hesitate to contact their offices, many are offering virtual visits during this time. 5-067-9-WZFE7SSKD - [place] Maternal Mental Health Hotline If you are in suicidal crisis, please call or text 8-234-149-TALK ( ) or visit the National Suicide Prevention Lifeline website. m[facility]b.[facility] hospitalsa.gov [facility] Psychology, Psychiatry, Counseling Connect with therapist/ can do virtual visits [phone] Referral to the [facility] To schedule an appointment, please call the Center for Behavior[facility] Appointment Line: [phone] option 1 [facility] [place], [place] [address] [place] [address] [facility] [address] [place] [address] [facility] [address] [place] [address] [facility] [address] [place], [place] [id number] Lisbeth Sahu MD [address] [place], [place] [id number] [facility] [address] [facility], [address] [place] [address] [facility] [address] [place] [address] [facility] Services [place] / [place] [phone]/ [phone] Sari Moreno [address] [facility] [phone] [facility] [place] / [place] [phone] Behavioral health services of pending sale to [facility] [address] [place] [address]/ [place] [phone] KASH Olguin, [facility] Workshops, telehealth and at home visits. [phone] Humanistic counseling center 20 locations [place], [place], [place], [place], [place], [place], [place], [facility], [place], [place], [place], [place], [place], [place], [facility], [place], [place] ,[facility], [place], [place],[facility], [facility] [place], [place], [facility], [facility], [place] www.Pattern Gen[employer]coAmerican H[employer]Ne[employer]Pace [phone] Psychotherapy resources outside of [facility] are listed below [facility] Web: [email or web address].CreditCardsOnline/ [employer] Online Provider Directory [email or web address] [facility] https://Sapphire [employer]/ [facility] Web: https://Headstrong/ [employer] Effective Living Web: https://LoandesklivingKivuto Solutions, formerly e-academy/ LifeStance Web: https://Bahamaslocal.com/location/state/[place]/ [facility] Web: https://www.SFJ Pharmaceuticalsselect medical specialty hospital - youngstownNirvanix.org/ [facility] Web: https://Core Essence [employer]/ Recovery Resources Mental health and substance abuse help Web: https://www.Mc Kinney LocksmithsAdaptics & RESOURCES Support International Direct peer support and connection to professional resources Non-Emergency Helpline Phone: / Text: 603.954.1152 Web: https://www..net/ Online Provider Directory: https://everbill/ Online Support Meetings: https://www..net/get-help/uox-psspfp-xnhobrs-meetings/ MELANIE Baby and Cardiopulmonary Physical Therapist Services Web: https://wwwDoyenz/ United Allergy Services Expert information on medication use during and Text: [phone] Web: https://10BestThings.DCF Technologies/ NATIONAL REGISTRY FOR PSYCHIATRIC MEDICATIONS Currently studying the safety of antidepressants, ADHD medications and atypical antipsychotics taken during TO PARTICIPATE CALL TOLL-FREE: Web: https://womenentalhealth.org/research/pregnancyregistry/ Support Groups: [facility]- Follow on facebook Baby Bistro support group led by [facility] department Resilient Mamas - Support Group Resilentmamas.org The POEM support group [phone] Www.poemonline.org Follow on facebook - PEBBLES florez Online support meetings PSI https://www..net/get-help/gqn-ehphey-rrudvib-meetings/ [facility] mommy and me virtual support group 11:30-1pm Support for mothers and new babies and toddlers Elrod childbirth education: Childbirth @cc.org or call [phone] CRISIS: CRISIS HOTLINE [phone], 911 or go to the nearest ER. [facility] [phone] / [facility] [phone] https://www.[facility].org Crisis text line text the word HOME to [id number] [facility] [address] [facility] [address] www.Sensicore Kacey Mahmood clinical counseling [address] [address] www.Next Level Security Systems [phone] [facility] psychotherapy Mylene Mcdonald REAL ESTATE CLOSER SUBSTANCE ABUSE SERVICES DIRECTOR-S [address] [facility] www.Follicum [phone]/ [place] [phone] They all offer virtual. All work with trauma Support groups Online support meetings PSI https://www..net/get-help/ydg-axgaml-orwwgoa-meetings/ Here are the support groups they offer: Support of parents of 1 to 4 years old children POEM ( Outreach and Encouragement for Moms) offers free support for mothers experiencing depression, anxiety, and other mood and anxiety disorders. Masks are recommended but not required. No pre-registration required. Babies in arms welcome. meetings now take place on the and Monday of each month Location: [facility] [address] [place] [address] Room 122 (library room) 7-8:00 p.m. When you enter the religion parking lot off of [address], the entrance door closest to our meeting room is on the front of the building toward the right. For those who are more comfortable with a virtual platform, Chairish offers online support group options several days of the week. To register for an online group or to find out more about POEM, website at: https://mhaohio.org/get-help/shndyceb-afjdnb-gracry/poem-services/ offer a confidential helpline: private Facebook group is called [facility] Here are the groups they offer: Traumatic childbirth resources: Http://pattch.org/ https://www.In1001.comnishaTopaz Energy and Marine/ documented in this encounterTrinity Health [facility]07-10-2023 History of Present illness Narrative* Terra Herrera APRN.CNM - 02/13/2023 1:43 PM EDT EARLY VISIT Nestor Lopez is a 22 year old here for 1 week visit. Delivery Summary: Date: 02/07/2023 Time: 1:11am Sex: F Name: Shruthi Weight: 2# 15.3oz Outcome: PCS Details: HELLP Syndrome, Incision - low transverse, and Labor Anesthesia: General Delivered by: Areli Wing MD ([facility]) Perineal repair: NA ROS: General: Denies any [...] issues Sleep: no sleep concerns, feels rested [facility] [place] since delivery: Not resumed Emotional support: Yes [...] needed Terra Herrera APRN.CNM documented in this encounterTrinity Health System [facility]07-07-2023 NoteHNO ID: [id number] Author: Mary Paul MD Service: Obstetrics Author [...] Lopez DATE: February 10, 2023 TIME: 6:02 [facility]07-06-2023 NoteHNO ID: [id number] Author: Tiana Burr RN Service: Nursing Author Type: Registered Nurse Type: Nursing Progress Note Filed: 02/09/2023 6:22 PM Note Text: Patient returned from [facility]07-06-2023 NoteHNO ID: [id number] Author: Mary Paul MD Service: Obstetrics Author [...] pumping - [facility], 02/07/2023 Overview Note: -on admission [...] Is hopeful to have a pass to [facility] today. Patient has no current complaints. Tolerating PO intake. Urinating without difficulty. Passing flatus. Pain well controlled with current regimen. Lochia decreasing (more content not included)...[facility]07-05-2023 NoteHNO ID: [id number] Author: Mary Paul MD Service: Obstetrics Author [...] pumping - Female infant, [facility] HELLP syndrome, 02/07/2023 Overview Note: -concern for [...] indicated History of anxiet (more content not included)...[facility] 02-08-2023 NoteHNO ID: [id number] Author: Ros Mata MD Service: Obstetrics Author [...] at her incision site. O: 02/07/23 1905 02/07/23199902/07/23209902/07/23 2200 BP: 127/71 126/77 129/74 Pulse: 75 [...] 07, 2023 TIME: 10:13 PM PAGER/CONTACT #: [phone] BAG PRINTER Service Pager: For questions or concerns regarding: -Obstetric patients or consults Mon-Mon-, please page #[phone] -Gynecology patients or consults Mon-Mon-, please page #[phone] -Postoperative patients Mon-Mon-, please directly page the resident caring for the patient After 5P and on holidays and weekends, please page #[phone]07-04-2023 NoteHNO ID: [id number] Author: Nabil Contreras MD Service: Hospital Medicine [...] House Medicine can be reached at Pager: [phone]. Nabil Contreras MD Internal Medicine PGY-3 February 07, 2023 4:57 [facility]07-04-2023 NoteHNO ID: [id number] Author: Kimberly Rueda MD Service: Obstetrics Author Type: Resident Type: Progress Notes Filed: 02/07/2023 10:00 AM Note Text: Discussion had with nursing, 6AM lab drawn off the IV. Sodium value likely artificially low in this setting. Repeat sodium 8AM was 134. Will continue to monitor with 12PM labs. Kimberly Rueda MD OBGYN PGY-2 Pager #[phone] February 07, 2023 9:58 [facility]07-04-2023 NoteHNO ID: [id number] Author: Pedro Pan APRN.TREE CHIPPER Service: Anesthesiology Author Type: Nurse Shuttle Inspector Type: Anesthesia Procedure Notes Filed: 02/07/2023 1:15 AM Note Text: ANESTHESIOLOGY PROCEDURE NOTE Airway General Information Procedure Start Time/Medication Administration: 02/07/2023 1:06 AM Patient location during procedure: OR Timeout Performed Pre-procedure: timeout performed Consent Obtained: Yes Patient identity confirmed: arm band and patient Staffing TREE CHIPPER: Pedro Pan APRN.TREE CHIPPER Performed by: JORY Indications and Patient Condition Indications for airway management: anesthesia Preoxygenated: yes anesthesia circuit Patient position: sniffing Method: asleep Final Airway Details Final airway type: endotracheal airway Final Endotracheal Airway: ETT Cuffed: yes Successful intubation technique: video laryngoscopy Devices used: Gonzalez Endotracheal tube insertion site: oral Blade: Tomy Blade size: #3 ETT size (mm): 7.0 Measured from: lips Measurement (cm): 21 Placement verified by: chest auscultation and capnometry Cormack-Lehane Classification: grade I - full view of glottis Number of attempts at approach: 1 SIGNATURE: Pedro Pan APRN.CRNA PATIENT NAME: Nestor Lopez DATE: February 07, 2023 TIME: 1:15 AM CSN: [id number] [facility]07-03-2023 History and physical note Author Mary Arredondo [facility] February 06, 2023 10:04pm Note Date/Time February 06, 2023 8:13p [facility] Medical Records Department [address] [place] [address] OB Triage Physician Note 02/06/232008 MR#: [id number] Acct: [id number] Name: NESTOR LOPEZ Rep #:[id number] 1 : 2000 22 From: Mary Arredondo DO PCP: Dr. Betsy Coleman, DO Status:REG CLI Y Location: BY548-1 [facility] - General General Date of Service: 02/06/23 [...] Good FM. No CADENA or vision changes. [facility] Medical History (Updated 02/06/23 @ 21:[address] Mary Arredondo DO) Lab test negative for COVID-19 virus Pilonidal cyst with abscess URI (upper respiratory infection) Home Medications escitalopram oxalate 5 mg tablet (Lexapro) 5 mg PO DAILY 01/07/21 [History Last Taken Unknown] trazodone 50 mg tablet 50 mg PO DAILY 01/07/21 [History Last Taken Unknown] fdfrmeqt-lcb-Bq-FA 1 mg tablet tab PO 02/04/23 [History Last Taken Unknown] titerqtd-vbt-Yo-FA 1 mg tablet tab PO 02/04/23 [History [...] and plan of care with MFM at [facility] who accepts transfer. Will send by life flight given acuity. (2) Abdominal pain affecting : 02/06/232203 <Electronically signed by Mary Arredondo DO> Date _ Mary Arredondo DO Cosigner Signature (if applicable): Date CC: Dr. Betsy Coleman, DO; Dr. Mary Arredondo, DO ~ Signed [facility] Work Phone: [phone] History of Present illness Narrative* Jean Hernandez MD - 02/06/2023 9:51 PM EDT Received call from Mary Arredondo, Summer Counselor at [place] regarding patient in urgent need of transport. [...] prior to transfer. Plan for transfer to [facility] for delivery and further management. L&D team at [facility]. Recommend repeat labs on admission at [facility] including CBC, CMP, coags, fibrinogen, ammonia, amylase, [...] 06, 2023 10:10 PM documented in this encounterTrinity Health [facility]07-03-2023 Miscellaneous Notes* Quick Notes - Terra Herrera APRN.TYLOR - 02/06/2023 10:55 AM EDT BEATA-S: Nestor [...] ED. Terra Herrera APRN.CNM documented in this encounterTrinity Health System [facility]07-03-2023 Instructions* Patient Instructions* Matilde Cortez Ma - 02/06/2023 9:25 AM EDT SEQUENTIAL SCREENINGS The [facility] offers sequential screenings for women who are [...] testing. It will require an appointment withour auto body technician. This is not an ultrasound performed [...] the above symptoms, contact our office at [phone] and ask to speak with anurse. After hours, you can call doctors registry at [phone] OR call [facility] at [phone] ask to have the doctor education professional paged. If you consider this an emergency, dial 04-07-1 or go to your nearest emergency department. NEED HELP? Are you dealing with a violent or abusive relationship? Are you a victim of rape or sexual assult? Call [facility] ([place]) 24 hour Crisis Hotline: 152.675.2668 or 596-838-9794. MANUAL Your Guide to a Healthy manual is now on-line. Visit [facility].org/HealthyPregnancyGuide to download your free copy documented in this encounterTrinity Health System [facility] Center06-29-2023 Miscellaneous Notes* Telephone Encounter - Sabrina Ayala [...] advise. Luda Amin LPN documented in this encounterTrinity Health System [facility] Center06-28-2023 History of Present illness Narrative* Mimi Bills RN - 02/01/2023 11:10 AM EDT Nestor Lopez 22 year old is here for her injection of Rhophylac. Nestor Lopez Antibody Screen (no units) Date Value 01/30/2023 Negative Nestor Lopez is RH Negative Rhophylac was given without incident. See immunizations for details of immunizations administered today. Provider Shea Dykes APRN.HOWARDM was present in office at time of [...] severely ill: Yes Patient denies history of Guillain-Tsaile Syndrome (a severe paralytic illness): Yes Tdap Adacel injection was given without incident. See immunizations for details of immunizations administered today. VIS sheet provided: Yes Provider Shea Dykes APRN.TYLOR was present in office at time of injection. Mimi Bills RN documented in this encounterTrinity Health System [facility] Center06-28-2023 Miscellaneous Notes* Telephone Encounter - Terra Herrera APRN.CNM - 02/01/2023 10:45 AM EDT Signed. Terra Herrera APRN.CNM * Telephone Encounter - Mimi Bills RN - 02/01/2023 10:34 AM EDT Patient has nurse visit today. Please file orders. Mimi Bills RN documented in this encounterTrinity Health System [facility] Center06-27-2023 Miscellaneous Notes* Quick Notes - Terra Herrera [...] needed Terra Herrera APRN.CNM documented in this encounterTrinity Health System [facility] Center06-26-2023 Miscellaneous Notes* Telephone Encounter - Shea Dykes [...] scheduling. Shea Dykes APRN.CNM documented in this encounterTrinity Health System [facility] Center06-26-2023 Instructions* Patient Instructions* Mark Riojas Cma - 01/30/2023 11:09 AM EDT SEQUENTIAL SCREENINGS The [facility] offers sequential screenings for women who are [...] testing. It will require an appointment withour auto body technician. This is not an ultrasound performed [...] the above symptoms, contact our office at [phone] and ask to speak with anurse. After hours, you can call doctors registry at [phone] OR call [facility] at [phone] ask to have the doctor education professional paged. If you consider this an emergency, dial 9-1-5 or go to your nearest emergency department. NEED HELP? Are you dealing with a violent or abusive relationship? Are you a victim of rape or sexual assult? Call [facility] ([place]) 24 hour Crisis Hotline: 992.471.2716 or 819-851-7153. MANUAL Your Guide to a Healthy manual is now on-line. Visit [facility].org/HealthyPregnancyGuide to download your free copy documented in this encounterTrinity Health System [facility]06-20-2023 Miscellaneous Notes* Telephone Encounter - Terra Herrera [...] be 27wks 4days, I sent pt a WeYAPt msg to call to be moved to Monday so she can get rhogam at that visit. Patient will also need an order for a type and screen filed. Order pended. Betsy Rosa MA documented in this encounterTrinity Health System [facility] Center05-02-2023 Miscellaneous Notes* Result Encounter Note - Berenice Ovalle MD - 12/06/2022 4:05 PM EDT Anatomy ultrasound reviewed. No abnormalities identified. Follow up as clinically indicated. Pleaseplace copy in ob chart. Berenice Ovalle MD documented in this encounterTrinity Health System [facility] Center05-02-2023 Miscellaneous Notes* Quick Notes - Trera Herrera APRN.CNM - 12/06/2022 10:57 AM EDT [...] Level: 4 - Moderate documented in this encounterTrinity Health System [facility] Center05-02-2023 Instructions* Patient Instructions* Terra Herrera APRN.CNM - [...] the above symptoms, contact our office at [phone] and ask to speak with anurse. After hours, you can call doctors registry at [phone] OR call [facility] at [phone] ask to have the doctor education professional paged. If you consider this an emergency, dial 8-4-7 or go to your nearest emergency department. NEED HELP? Are you dealing with a violent or abusive relationship? Are you a victim of rape or sexual assult? Call [facility] ([place]) 24 hour Crisis Hotline: 611.764.9652 or 100-830-6392. MANUAL Your Guide to a Healthy manual is now on-line. Visit [facility].org/HealthyPregnancyGuide to download your free copy documented in this encounterTrinity Health System [facility] Center03-28-2023 Miscellaneous Notes* Quick Notes - Partha Cornelius MD - 11/01/2022 10:32 AM EDT KJ - No VB/LOF/ctxs. A&P: Schedule anatomy US AFP ordered Partha Cornelius MD documented in this encounterTrinity Health System [facility] Center03-28-2023 Instructions* Patient Instructions* Josee Conroy Ma - 11/01/2022 10:10 AM EDT SEQUENTIAL SCREENINGS The [facility] offers sequential screenings for women who are [...] testing. It will require an appointment withour auto body technician. This is not an ultrasound performed [...] the above symptoms, contact our office at [phone] and ask to speak with anurse. After hours, you can call doctors registry at [phone] OR call [facility] at [phone] ask to have the doctor education professional paged. If you consider this an emergency, dial 7-5- or go to your nearest emergency department. NEED HELP? Are you dealing with a violent or abusive relationship? Are you a victim of rape or sexual assult? Call [facility] [place] ([place]) 24 hour Crisis Hotline: 740.124.4366 or 831-114-3742. MANUAL Your Guide to a Healthy manual is now on-line. Visit [facility].org/HealthyPregnancyGuide to download your free copy documented in this encounterTrinity Health System [facility]03-09-2023 Miscellaneous Notes* Telephone Encounter - Ana Flores RN - 10/13/2022 11:17 AM EST Called Nestor Lopez and identified by name and date of . Nestor Lpoez was informed of negative Non-Invasive Testing (NIPT) [...] Provider. Ana Flores RN documented in this encounterTrinity Health System [facility] Center03-06-2023 History of Past illness Narrative* Problem Noted Date Diagnosed Date Resolved Date Rh negative state in antepar melvin period, first trimester 10/10/2022 02/06/2023 Patient request for diagnostic testing 09/08/2022 02/06/2023 Overview: 09/08/2022 Patient desires aneuploidy screening. Contact information for [facility] given to patient to check on insurance coverage. Patient considering genetic carrier screening testing. 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 Nausea improving. Taking PNV. D/w her aneuplody screening and limitations. Desires NIPT and CF screen. F/u in 4 weeks or prn. Berenice Ovalle MD documented in this encounterTrinity Health [facility]03-02-2023 Instructions* Patient Instructions* Jeanine Thomas Ma - 10/06/2022 9:46 AM EST SEQUENTIAL SCREENINGS The [facility] offers sequential screenings for women who are [...] testing. It will require an appointment withour auto body technician. This is not an ultrasound performed [...] the above symptoms, contact our office at [phone] and ask to speak with anurse. After hours, you can call doctors registry at [phone] OR call [facility] at [phone] ask to have the doctor education professional paged. If you consider this an emergency, dial 9-1-1 or go to your nearest emergency department. NEED HELP? Are you dealing with a violent or abusive relationship? Are you a victim of rape or sexual assult? Call [facility] [place] ([facility] 24 hour Crisis Hotline: 721.820.4875 or 428-766-5412. MANUAL Your Guide to a Healthy manual is now on-line. Visit [facility].org/HealthyPregnancyGuide to download your free copy documented in this encounterTrinity Health System [facility] Center02-02-2023 History of Present illness Narrative* Berenice Ovalle [...] with Folic acid: Yes Occupation: works at [employer]: No Would refuse blood transfusion if medically necessary: No No weight on file for this encounter. Patient BMI over 30? No Marital Status:Co-habitating Partner: Name: Marciano Age: 22 Occupation: [employer] employee Gender: male History of STDs: None [...] prn. Berenice Ovalle MD documented in this encounterTrinity Health System [facility] Center02-02-2023 Instructions* Patient Instructions* Jeanine Thomas Ma - 09/08/2022 10:29 AM EST Please select the following link to access the [facility] Your Guide to a Healthy . [email or web address]/healthypregnancyguide documented in this encounterTrinity Health System [facility] Center02-02-2023 Miscellaneous Notes* Quick Notes - April Schmidt [...] given to patient.Eleni JARAMILLO documented in this encounterTrinity Health System [facility] Center01-10-2023 Miscellaneous Notes* Telephone Encounter - Mimi Bills RN - 08/16/2022 11:01 AM EST PNOB scheduled. Mimi Bills RN * Telephone Encounter - Betsy Rosa MA - 08/16/2022 9:00 AM EST Attempted to contact patient to schedule PNOB, voicemail box was full. Puuilo message sent to patient to call office to schedule. Betsy Rosa MA documented in this encounterTrinity Health System [facility] Center12-12-2022 History of Present illness Narrative* Bello Navarro [...] entered by the nurse and reviewed by wa Nursing Notes: Gladys Maza LPN 07/15/2022 9:29 [...] Bello Navarro III, MD documented in this encounterTrinity Health System [facility] Center12-09-2022 Nurse Note* Gladys MazaSHEELA - 07/15/2022 9:28 AM EST REVIEW OF [...] none Gladys Maza LPN documented in this encounterTrinity Health System [facility] Center07-12-2022 History of Present illness Narrative* Dinorah Smith APRN.CREATIVE GURU - 02/15/2022 9:27 AM EDT Nestor is a 21 year old who presents for an annual gynecologic exam without complaints. 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 Presents: [...] SAB0 IAB0 Ectopic0 Multiple0 Live Births0 Rn Icu History LMP: 01/27/2022, Having periods Age at Menarche: Age at First : Age at Menopause: Rn Icu History Comments: Sexual Activity: Yes; Male Contraception: Pill PAST MEDICAL HISTORY Diagnosis Date Acne 2013 Anxiety 2012 Back pain 2014 Resolved Constipation 2009 Headache 2012 Heart murmur [...] needed. Dinorah Smith APRN.LOGAN documented in this encounterTrinity Health System [facility] Center04-24-2022 History of Present illness Narrative* Jean Adams PA-C - 11/28/2021 8:56 AM EDT This note was created using payever. Subjective Nestor Lopez is a 21 year [...] Take 1 tablet by mouth once daily. tpzjoofq-yucmgwvwg-eppkpafosjmhyi (CORTISPORIN) 3.5-10,000-1 mg/mL-unit/mL-% otic suspension Use 3 [...] days. 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 09/08/2022 On isotretinoin therapy 11/30/2016 09/08/19 Concussion without loss of consciousness 017 09/08/2022 [...] of this encounter (statuses as of 09/08/2022) [facility]04-26[facility]2017 History of Past illness Narrative* Problem Noted [...] of this encounter (statuses as of 10/06/2022) [facility]04-[facility]2017 History of Past illness Narrative* Problem Noted [...] of this encounter (statuses as of 10/13/2022) [facility] [facility] History of Past illness Narrative* Problem Noted [...] of this encounter (statuses as of 11/01/2022) [facility] History of Past illness Narrative* Problem Noted [...] of this encounter (statuses as of 12/06/2022) [facility] History of Past illness Narrative* Problem Noted [...] of this encounter (statuses as of 12/07/2022) [facility] History of Past illness Narrative* Problem Noted [...] of this encounter (statuses as of 01/25/2023) [facility] History of Past illness Narrative* Problem Noted [...] of this encounter (statuses as of 01/31/2023) [facility] History of Past illness Narrative* Problem Noted [...] of this encounter (statuses as of 02/01/2023) [facility] History of Past illness Narrative* Problem Noted [...] of this encounter (statuses as of 02/01/2023) [facility] History of Past illness Narrative* Problem Noted [...] of this encounter (statuses as of 02/02/2023) [facility] History of Past illness Narrative* Problem Noted [...] of this encounter (statuses as of 02/06/2023) [facility] History of Past illness Narrative* Problem Noted [...] of this encounter (statuses as of 02/07/2023) [facility] History of Past illness Narrative* Problem Noted Date Resolved Date Back pain 05/01/2014 12/19/2014 Acne 05/01/2014 03/17/2017 Anxiety 05/11/2013 03/17/2017 Headache(784.0) 05/11/2013 03/17/2017 Fracture of metacarpal base, first, left hand, c losed 08/31/2010 01/31/2013 Knee pain 05/20/2010 02/26/2013 Abdominal wall mass 12/21/2009 11/19/2012 documented as of this encounter (statuses as of 11/28/2021) [facility] History of Past illness Narrative* Problem Noted Date Resolved Date Back pain 05/01/2014 12/19/2014 Acne 05/01/2014 03/17/2017 Anxiety 05/11/2013 03/17/2017 Headache(784.0) 05/11/2013 03/17/2017 Fracture of metacarpal base, first, left hand, c losed 08/31/2010 01/31/2013 Knee pain 05/20/2010 02/26/2013 Abdominal wall mass 12/21/2009 11/19/2012 documented as of this encounter (statuses as of 02/15/2022) [facility] History of Past illness Narrative* Problem Noted Date Resolved Date Back pain 05/01/2014 12/19/2014 Acne 05/01/2014 03/17/2017 Anxiety 05/11/2013 03/17/2017 Headache(784.0) 05/11/2013 03/17/2017 Fracture of metacarpal base, first, left hand, c losed 08/31/2010 01/31/2013 Knee pain 05/20/2010 02/26/2013 Abdominal wall mass 12/21/2009 11/19/2012 documented as of this encounter (statuses as of 07/18/2022) [facility] History of Past illness Narrative* Problem Noted Date Resolved Date Back pain 05/01/2014 12/19/2014 Acne 05/01/2014 03/17/2017 Anxiety 05/11/2013 03/17/2017 Headache(784.0) 05/11/2013 03/17/2017 Fracture of metacarpal base, first, left hand, c losed 08/31/2010 01/31/2013 Knee pain 05/20/2010 02/26/2013 Abdominal wall mass 12/21/2009 11/19/2012 documented as of this encounter (statuses as of 08/16/2022) [facility] note* Diagnosis Other infective acute otitis externa of left ear- Primary [facility] Diagnosis Encounter for gynecological examination without abnormal finding- Primary Routine gynecological examination Surveillance for control, oral contraceptives Surveillance of previously prescribed contraceptive pill documented [facility] this encounter [facility] Diagnosis Mass of upper inner quadrant of left breast- Primary [facility] this [facility] Diagnosis Supervision of normal first , antepartum- Primary History of anxiety Personal history of other mental disorder Patient request for diagnostic testing Other specified examination documented [facility] this encounter [facility] Diagnosis Encounter for care in first trimester of first - Primary Encounter for supervision of normal first in first trimester Supervision of normal first 7 weeks gestation of state, incidental documented [facility] this encounter [facility] Diagnosis 11 weeks gestation of - Primary state, incidental Patient request for diagnostic testing Other specified examination Encounter for supervision of normal first in first trimester Supervision of normal first documented [facility] this encounter [facility] Diagnosis Encounter for supervision of normal first in second trimester- Primary Supervision of normal first 15 weeks gestation of state, incidental [facility] Diagnosis 20 weeks gestation of - Primary state, incidental [facility] this [facility] Diagnosis Encounter for anatomic survey- Primary Encounter for supervision of normal first in first trimester Supervision of normal first 20 weeks gestation of state, incidental documented [facility] this encounter [facility]* Diagnosis Rh negative state in antepartum period, first trimester- Primary documented [facility] this [facility]* Diagnosis Abnormal glucose in , antepartum- Primary Abnormal maternal glucose tolerance, antepartum [facility] this [facility] Diagnosis 28 weeks gestation of - Primary state, incidental documented [facility] this [facility] Diagnosis 28 weeks gestation of - Primary state, incidental [facility]* Diagnosis Rh negative state in antepartum period- Primary Rhesus isoimmunization affecting management of mother, antepartum condition Need for vaccination Need for prophylactic vaccination and inoculation against unspecified single disease [facility] Diagnosis Acute bilateral low back pain without sciatica- Primary [facility] noteNo assessment information availableWSumma [facility] Work Phone: Evaluation note* Diagnosis 29 weeks gestation of - Primary state, incidental documented in this encounter [facility] note* Diagnosis Onset Date Resolution Status 28 weeks gestation of acute Abdominal pain affecting acute 29 weeks gestation of acute Abdominal pain affecting [facility] Work Phone: Evaluation note* Diagnosis Vaginal odor Unspecified symptom associated with female genital organs Acute vaginitis Vaginitis and vulvovaginitis, unspecified documented in this encounter [facility] note* Diagnosis Dizziness- Primary Dizziness and giddiness [facility]* Diagnosis care and examination- Primary Routine follow-up Encounter for screening for lipoid disorders Screening for lipoid disorders documented in this encounter [facility] note* Diagnosis Encounter for gynecological examination (general) (routine) without abnormal findings- Primary Anxiety neurosis Anxiety state, unspecified Mass of upper inner quadrant of left breast documented in this encounter [facility] note* Diagnosis Mass of upper inner quadrant of left breast [facility]* Diagnosis Anxiety neurosis Anxiety state, unspecified documented in this encounter [facility] note* Diagnosis Solitary cyst of left breast- Primary Solitary cyst of breast [facility]* Diagnosis Cyst of left breast- Primary Encounter for initial prescription of intrauterine contraceptive device (IUD) Family history of malignant neoplasm of breast [facility]* Diagnosis Encounter for initial prescription of intrauterine contraceptive device (IUD)- Primary [facility]* Diagnosis Solitary cyst of left breast Solitary cyst of breast documented in this encounter [facility] Discharge instructionsAmbulatory Orders* Culture, Urine Time Frame: 05/01/25, Location: Determined By Patient * Urinalysis, Complete Time Frame: 05/01/25, Location: Determined By Patient [facility] Work Phone: Progress note Author Terra Garduno [facility] Note Date/Time May 01, 2025 9:58am [facility] [address] [place] [address] [place] [address] OFFICE VISIT Date of Service: 05/01/25 MR#: [id number] Acct: [id number] Name: NESTOR LOPEZ Rep #: [id number] : 2000 Provider: JORGE Garduno Age/Sex: 24/F Location: [facility] Status: Signed Intake Vital Signs 02/14/25 10:22 05/01/25 09:37 Height 5 ft 6 in 5 ft 6 in Weight: 155 lb 6 oz 161 lb BMI 25.0 25.9 BP 106/62 110/74 Blood Pressure Location Lt brachial Lt brachial Position Sitting Sitting Respiration 16 16 Pulse 97 113 H Pulse Source Monitor Monitor Temp 97.6 F L 97.4 F L Temp Source Temporal Temporal Pulse Oximetry (%) 99 97 Oxygen Delivery Method room air room air Intake Visit Reasons: Possible UTI Chief Complaint: uti Pneumatic Jack Operator Required: No Accompanied by: Self Is patient in pain?: No Allergies Seasonal Allergies: Uncoded Allergy (Unknown, Verified 05/01/25 09:33) NEEDS FOLLOW-UP Nurse's Note: burning and frequent urination PFSH Medical History Fatigue Vitamin D insufficiency Encounter to establish care Generalized anxiety disorder Breast lump Pneumonia Migraine Allergies section wound complication Lab test negative for COVID-19 virus URI (upper respiratory infection) Pilonidal cyst with abscess Family History Other Arthritis Diabetes Seizures Social History Smoking Status: Never smoker HPI HPI Chief Complaint: uti Details: NESTOR LOPEZ, is a 24 F who presents to the office today for urinary concerns. Patient states she has urinary frequency as well as burning with urination that started last night. She also started her. Yesterday. She denies any lower abdominal pain more so than menstrual cramps. Feels that she has pain in the urethra when she urinates. Urine in his without odor or change in color. Has nausea vomiting denies fever or chills. Denies any recent changes in diet. ROS Const Constitutional: No body ache, excessive sweating, fatigue, fever(s), frequent falls, headache(s), snoring, weakness, weight change, sleep problems or change in appetite Eyes Eyes: No blurry vision, change in vision, eye pain or Light sensitivity ENT ENT: No abnormal hearing, ear or mastoid pain, tinnitus, nasal congestion, headache(s), neck pain or sore throat Resp Respiratory: No cough, shortness of breath, snoring or wheezing Cardio Cardiology: No chest pain at rest, chest pain with exertion, excessive sweating,shortness of breath, dyspnea on exertion, lightheadedness, orthopnea or palpitations Gastro GI: No abdominal pain, change in bowel habits, constipation, cramping, diarrhea,nausea/dyspepsia or vomiting Genitourinary-Female: No burning urination, painful [...] seasonal allergy symptoms, hives or wheezing Leon/Lymp Hematologic/Lymphatic: No easy bleeding, easy bruising or enlarged lymph nodes Exam Const General: cooperative, no acute distress and well developed Nutritional Appearance: well nourished Orientation: alert and oriented x3 HENMT Head: normal to inspection and normocephalic Ears: hearing grossly normal bilaterally Nose: external nose normal Face and sinus: normal facial exam Mouth: oral mucosae normal Eyes General: appearance normal, both eyes and all related structures Neck Neck: normal visual inspection, trachea midline and nontender Lymphatic: no lymphadenopathy noted Chest Chest palpation & inspection: normal inspection of the chest Resp Effort & Inspection: normal respiratory effort, able to speak in complete sentences and symmetric chest movement Auscultation: Bilateral: Clear to Auscultation Cardio Palpation: normal PMI Rate: regular rate Rhythm: regular rhythm Heart Sounds: S1 normal and S2 normal GI Inspection: normal to inspection Palpation: soft and nontender Skin General: no rashes or lesions noted Neuro General: patient alert, patient oriented x3, no meningeal signs and deep tendon reflexes 2+ bilaterally Cognition: normal cognition Speech: speech normal Extrem General: normal to inspection and capillary refill normal Coding Level of Care Code Established Pt Off vis,est,level 2 Patient Type Established Medical Decision Making Low Complexity Diagnoses UTI (urinary tract infection) N39.0 Time Spent (min) 20 Assessment and Plan Assessment and Plan (1) UTI (urinary tract infection): Status: Acute Plan: Urine positive for blood and leukocytes. Will send for urinalysis along with culture. Will start antibiotics due to presence of white blood cells. Also will send prescription for Pyridium due to dysuria. Increase fluid intake follow-up if needed Orders: Orders Culture, Urine 05/01/25 R30.0 - Dysuria Urinalysis, Complete 05/01/25 R30.0 - Dysuria POC Urinalysis Dip (Clinic) 05/01/25 R30.0 - Dysuria Medications: New nitrofurantoin monohyd/m-cryst 100 mg (Macrobid) must administer with a meal/food 100 mg PO Q12H 10 caps 0RF 5 days phenazopyridine (Pyridium) 200 mg PO QPC PRN 6 tabs 0RF pain 6 doses Plan Details Follow Up: As needed 05/02/25908 <Electronically signed by Terra cesar BAG PRINTER-C> Date _ Terra Garduno BAG PRINTER-C Cosigner Signature: Date (if applicable) CC: ~ [facility] Work Phone: Reason for referral (narrative)* Diagnostic Procedure Only (Routine) - Authorized Specialty Diagnoses / Procedures Referred By Michaela t Referred To Contact [facility] Diagnoses Mass of upper inner quadrant of left breast Procedures US BREAST LTD LT US BREAST UNI REAL TIME WITH IMAGE LIMITED Bello Navarro MD [address] [place] [address] [facility] [address] [place] [address] Referral ID Status Reason Start Date Expiration Date Visits Requested Visits Authorized [id number] Authorized Auto-Generat ed Referral 07/15/2022 08/14/2023 1 1 [facility] for referral (narrative)* Diagnostic Procedure Only (Routine) - Authorized Specialty Diagnoses / Procedures Referred By Michaela t Referred To Contact [facility] Diagnoses Mass of upper inner quadrant of left breast Procedures US BREAST LTD LEFT US BREAST UNI REAL TIME WITH IMAGE LIMITED Sandra Vizcaino MD [address] [place] [address] [facility] [address] [place] [address] Referral ID Status Reason Start Date Expiration Date Visits Requested Visits Authorized [id number] Authorized Auto-Generat ed Referral 08/27/2024 09/26/2025 1 1 [facility] for referral (narrative)No reason for referral information availableWSumma [facility] Work Phone: Reason for visit Narrative* Diagnostic Procedure Only (Routine) - Closed Specialty Diagnoses / Procedures Referred By Michaela araiza Referred To Contact [facility] Diagnoses Mass of upper inner quadrant of left breast Procedures US BREAST LTD LEFT US BREAST UNI REAL TIME WITH IMAGE LIMITED Sandra Vizcaino MD [address] [place] [address] Phone: tel: fax: [facility] [address] [place] [address] Referral ID Status Reason Start Date Expiration Date V isits Requested Visits Authorized [id number] Closed Auto-Generate d Referral 08/27/2024 09/26/2025 1 1 [facility] Advance Directives No Advanced Directives Records FoundDocuments on File Type Date Recorded Patient Service Developer Expl anation Advance Directive(s) Advance Directive Response Recorded Date/ Time Living Will No December 14, 2020 8 :07am Power of Clock And Watch Hands Painter No December 14, 2020 8:07am Summary Purpose [...] PM EDT Problem Noted Date Diagnosed Date [place] 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 02/10/2023 Reason for Referral Specialty Diagnoses / Procedures Referred By Michaela araiza Referred To Contact [facility] Diagnoses 11 weeks gestation of Patient request for diagnostic testing Encounter for supervision of normal first in first trimester Procedures CYSTIC FIBROSIS PATHOGENIC VARIANT ANALYSIS CFTR GENE ANALYSIS COMMON VARIANTS Berenice Ovalle MD [address] [place] [address] [facility] [address] [place] [address] Referral ID Status Reason Start Date Expiration Date Visits Requested Visits Authorized [id number] Pending Review PCP Requested Referral Auto-Generate d Referral 10/06/2022 01/04/2023 1 1 Specialty Diagnoses / Procedures Referred By Michaela araiza [facility] Diagnoses 11 weeks gestation of Patient request for diagnostic testing Encounter for supervision of normal first in first trimester Procedures OBSTETRIC ULTRASOUND WHI US PREG UTERUS AFTER 1ST TRIMEST GESTATION Berenice Ovalle MD [address] [place] [address] [facility] [address] [place] [address] Referral ID Status Reason Start Date Expiration Date Visits Requested Visits Authorized [id number] Pending Review Auto-Generat ed Referral 10/06/2022 10/06/2023 1 1 Chief Complaint and Reason for Visit Chief Complaint Admit Date 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 9:23am Chief Complaint Admit Date 3 M FU February 14, 2025 10:1 4am Possible UTI May 01, 2025 9:28am Reason for Visit Admit Date Fatigue February 14, 2025 10:1 4am Generalized anxiety disorder February 14, 2025 10:14am Vitamin D insufficiency February 14, 2025 10:14am UTI (urinary tract infection) May 01, 2025 9:28am Additional Source Comments Source Comments (unrecognize d section and content) In the event this informatio n is protected by the Federal Confidentiality of Alcohol and Drug Abuse Patient Records regulations: The Federal rules restrict any use of the information to criminally investigate or prosecute any alcohol or drug abuse patient.[facility] the event this information is protected by the Federal Confidentiality of Alcohol and Drug Abuse Patient Records regulations: The Federal rules restrict any use of the information to criminally investigate or prosecute any alcohol or drug abuse patient.[facility] Center[facility] the event this information is protected by the Federal Confidentiality of Alcohol and Drug Abuse Patient Records regulations: The Federal rules restrict any use of the information to criminally investigate or prosecute any alcohol or drug abuse patient.[facility] CenterIn the event this information is protected by the Federal Confidentiality of Alcohol and Drug Abuse Patient Records regulations: The Federal rules restrict any use of the information to criminally investigate or prosecute any alcohol or drug abuse patient.[facility] Center[facility] the event this information is protected by the Federal Confidentiality of Alcohol and Drug Abuse Patient Records regulations: The Federal rules restrict any use of the information to criminally investigate or prosecute any alcohol or drug abuse patient.[facility] Center[facility] the event this information is protected by the Federal Confidentiality of Alcohol and Drug Abuse Patient Records regulations: The Federal rules restrict any use of the information to criminally investigate or prosecute any alcohol or drug abuse patient.[facility] CenterIn the event this information is protected by the Federal Confidentiality of Alcohol and Drug Abuse Patient Records regulations: The Federal rules restrict any use of the information to criminally investigate or prosecute any alcohol or drug abuse patient.[facility] CenterIn the event this information is protected by the Federal Confidentiality of Alcohol and Drug Abuse Patient Records regulations: The Federal rules restrict any use of the information to criminally investigate or prosecute any alcohol or drug abuse patient.[facility] CenterIn the event this information is protected by the Federal Confidentiality of Alcohol and Drug Abuse Patient Records regulations: The Federal rules restrict any use of the information to criminally investigate or prosecute any alcohol or drug abuse patient.[facility] CenterIn the event this information is protected by the Federal Confidentiality of Alcohol and Drug Abuse Patient Records regulations: The Federal rules restrict any use of the information to criminally investigate or prosecute any alcohol or drug abuse patient.[facility] CenterIn the event this information is protected by the Federal Confidentiality of Alcohol and Drug Abuse Patient Records regulations: The Federal rules restrict any use of the information to criminally investigate or prosecute any alcohol or drug abuse patient.[facility] CenterIn the event this information is protected by the Federal Confidentiality of Alcohol and Drug Abuse Patient Records regulations: The Federal rules restrict any use of the information to criminally investigate or prosecute any alcohol or drug abuse patient.[facility] CenterIn the event this information is protected by the Federal Confidentiality of Alcohol and Drug Abuse Patient Records regulations: The Federal rules restrict any use of the information to criminally investigate or prosecute any alcohol or drug abuse patient.[facility] CenterIn the event this information is protected by the Federal Confidentiality of Alcohol and Drug Abuse Patient Records regulations: The Federal rules restrict any use of the information to criminally investigate or prosecute any alcohol or drug abuse patient.[facility] CenterIn the event this information is protected by the Federal Confidentiality of Alcohol and Drug Abuse Patient Records regulations: The Federal rules restrict any use of the information to criminally investigate or prosecute any alcohol or drug abuse patient.[facility] CenterIn the event this information is protected by the Federal Confidentiality of Alcohol and Drug Abuse Patient Records regulations: The Federal rules restrict any use of the information to criminally investigate or prosecute any alcohol or drug abuse patient.[facility] CenterIn the event this information is protected by the Federal Confidentiality of Alcohol and Drug Abuse Patient Records regulations: The Federal rules restrict any use of the information to criminally investigate or prosecute any alcohol or drug abuse patient.[facility] CenterIn the event this information is protected by the Federal Confidentiality of Alcohol and Drug Abuse Patient Records regulations: The Federal rules restrict any use of the information to criminally investigate or prosecute any alcohol or drug abuse patient.[facility] CenterIn the event this information is protected by the Federal Confidentiality of Alcohol and Drug Abuse Patient Records regulations: The Federal rules restrict any use of the information to criminally investigate or prosecute any alcohol or drug abuse patient.[facility] CenterIn the event this information is protected by the Federal Confidentiality of Alcohol and Drug Abuse Patient Records regulations: The Federal rules restrict any use of the information to criminally investigate or prosecute any alcohol or drug abuse patient.[facility] CenterIn the event this information is protected by the Federal Confidentiality of Alcohol and Drug Abuse Patient Records regulations: The Federal rules restrict any use of the information to criminally investigate or prosecute any alcohol or drug abuse patient.[facility] CenterIn the event this information is protected by the Federal Confidentiality of Alcohol and Drug Abuse Patient Records regulations: The Federal rules restrict any use of the information to criminally investigate or prosecute any alcohol or drug abuse patient.[facility] CenterIn the event this information is protected by the Federal Confidentiality of Alcohol and Drug Abuse Patient Records regulations: The Federal rules restrict any use of the information to criminally investigate or prosecute any alcohol or drug abuse patient.[facility] CenterIn the event this information is protected by the Federal Confidentiality of Alcohol and Drug Abuse Patient Records regulations: The Federal rules restrict any use of the information to criminally investigate or prosecute any alcohol or drug abuse patient.[facility] CenterIn the event this information is protected by the Federal Confidentiality of Alcohol and Drug Abuse Patient Records regulations: The Federal rules restrict any use of the information to criminally investigate or prosecute any alcohol or drug abuse patient.[facility] CenterIn the event this information is protected by the Federal Confidentiality of Alcohol and Drug Abuse Patient Records regulations: The Federal rules restrict any use of the information to criminally investigate or prosecute any alcohol or drug abuse patient.[facility] CenterIn the event this information is protected by the Federal Confidentiality of Alcohol and Drug Abuse Patient Records regulations: The Federal rules restrict any use of the information to criminally investigate or prosecute any alcohol or drug abuse patient.[facility] CenterIn the event this information is protected by the Federal Confidentiality of Alcohol and Drug Abuse Patient Records regulations: The Federal rules restrict any use of the information to criminally investigate or prosecute any alcohol or drug abuse patient.[facility] CenterIn the event this information is protected by the Federal Confidentiality of Alcohol and Drug Abuse Patient Records regulations: The Federal rules restrict any use of the information to criminally investigate or prosecute any alcohol or drug abuse patient.[facility] CenterIn the event this information is protected by the Federal Confidentiality of Alcohol and Drug Abuse Patient Records regulations: The Federal rules restrict any use of the information to criminally investigate or prosecute any alcohol or drug abuse patient.[facility] Reason for Visit (unrecogniz ed section and [...] [place] Specialty Diagnoses / Procedures Referred By Michaela t Referred To Contact [facility] Diagnoses 11 weeks gestation of Patient request for diagnostic testing Encounter for supervision of normal first in first trimester Procedures OBSTETRIC ULTRASOUND WHI US PREG UTERUS AFTER 1ST TRIMEST GESTATION Berenice Ovalle MD [address] [place] [address] [facility] [address] [place] [address] Referral ID Status Reason Start Date Expiration Date V isits Requested Visits Authorized [id number] Closed Auto-Generate d Referral 10/06/2022 10/06/2023 1 [...] IMAGE LIMITED Sandra Vizcaino MD [address] [place] [address] Phone: tel: fax: [facility] [address] [place] [address] Referral ID Status Reason Start Date Expiration Date V isits Requested Visits Authorized [id number] Closed Auto-Generate d Referral 03/18/2025 10/18/2025 1 1 INFORMATION SOURCE (unrecogn ized section and content) DATE CREATED AUTHOR 03/10/2022 [facility] DATE CREATED AUTHOR AUTHOR'S ORGANIZ ATION 02/07/2023 [employer] DATE CREATED AUTHOR AUTHOR'S ORGANIZ ATION 02/12/2023 [facility] DATE CREATED AUTHOR AUTHOR'S ORGANIZ ATION 03/19/2025 [facility] DATE CREATED AUTHOR AUTHOR'S ORGANIZ ATION 06/01/2025 [facility] Care Teams (unrecognized sec tion and content) Team Status: Active Member Role Status Dates Guerda Connelly MD Family Provider Active Dr. Betsy Coleman DO Primary Care Provider Active Team Status: Inactive Member Role Status Dates Dr. Betsy Coleman DO Primary Care Provider Active Terra Herrera CNM Attending Provider, Referring Prov ider Active Team Status: Inactive Member Role Status Dates Dr. Betsy Coleman DO Primary Care Provider Active Dr. Mary Arredondo , Attending Provider Active [employer] Relationship Specialty Start Date End Date Temi Bedoya MD [address] [place] [address] PCP - General 10/19/09 11/09/20 Team Status: [...] February 14, 2025 End: February 14, 2025 Team Status: Active Member Role/Relationship Status Dates Guerda Connelly MD Primary care physician Active Dr. Franklin Brown MD Primary care physician Activ e Team Status: Inactive Member Role/Relationship Status Dates Dr. rFanklin Brown MD Primary care physician Activ e Start: February 14, 2025 End: February 14, 2025 Dr. Franklin Brown MD Attending physician Active Start: February 14, 2025 End: February 14, 2025 Dr. Franklin Brown MD Referring Provider Active Start: February 14, 2025 End: February 14, 2025 Team Status: Inactive Member Role/Relationship Status Dates Dr. Franklin Brown MD Primary care physician Activ e Start: May 01, 2025 End: May 01, 2025 Dr. Franklin Brown MD Referring Provider Active Start: May 01, 2025 End: May 01, 2025 JORGE Graham Attending physician Active Start: May 01, 2025 End: May 01, 2025 Team Status: Active Member Role/Relationship Status Dates Dr. Franklin Brown MD Primary care physician Activ e Start: May 01, 2025 JORGE Graham Attending physician Active Start: May 01, 2025 JORGE Graham Referring Provider Active Start: May 01, 2025 Goals (unrecognized section and content) Goals [...] BE BASED ON THE PRIMARY CLINICAL RECORDS. [facility] [employer] [facility]. provides no warranty or guarantee of the accuracy or completeness of information in this document.
[2025-07-11 09:29] LABS: Hematocrit 40.9 % (37-47); Hemoglobin 13.7 g/dL (12.0-15.0); Immature Granulocytes Count 0.020 X10^3/uL (0.0-0.0); Mean Corp Hgb Conc 33.5 g/dL (32-36); Mean Corpuscular Volume 81.5 fL (81-99); Mean Platelet Vol. 9.9 fl (6.2-12.0); NRBC Flagged by Analyzer 0 % (0-5); Platelet Count 256 K/mm3 (150-450); RBC Distribution Width CV 12.4 % (11.6-14.6); RBC Distribution Width SD 36.6 fl (35.1-43.9); Red Blood Count 5.02 M/mm3 (4.2-5.4); White Blood Count 7.6 K/mm3 (4.4-11.0)
[2025-07-11 10:13] LABS: AST(SGOT) 22 U/L (<=31); Alanine Aminotransfer ALT/SGPT 20 U/L (<=34); Albumin, Serum 4.6 g/dL (3.5-5.0); Alkaline Phosphatase 35 U/L (35-104); Anion Gap 11 (5-15); BUN 10 mg/dL (4-19); BUN/Creat Ratio 13.4 RATIO (10-20); Calcium,Total 9.4 mg/dL (7.6-11.0); Carbon Dioxide 25.1 mmol/L (21.0-32.0); Chloride 103 mmol/L (98-108); Globulin 2.7 g/dL (2.2-4.2); Glucose 85 mg/dL (70-99); Potassium 4.0 mmol/L (3.3-5.1); Vitamin D,25 Hydroxy 39.0 ng/mL (30-100)
== END | disposition home or self-care (01) ==
PROVIDERS: PCP Internal Medicine; Referring Provider Internal Medicine; Visit Provider Internal Medicine
DX: F41.1 Generalized anxiety disorder (principal); E55.9 Vitamin D deficiency, unspecified
CPT/HCPCS: 36415; 80053; 82306; 84439; 84443; 85025